=== PATIENT | male | born 1940 | race Caucasian/White ===

== ENCOUNTER → 2016-11-14 | Outpatient (CLI) | payer BC ==
[~2016-11-14] MED LIST: ACET-749 PO; AMOX875T PO; APIX1TAB3 PO; B-COCAP5 PO; CHOL100027 PO; CIPR-255 PO; CLOP1TAB15 PO; CLR10 PO; DOCU-94 PO; DOCU100C PO; DONE5TAB9 PO; FERR324T PO; FEXO3TAB PO; IPRA1AER2 INH; IPRASOL4 INH; ISOS60TA25 PO; METO50TA16 PO; METR-163 PO; MULT-506 PO; NITR0.4S UT; ONDA4TAB10 SL; OXYC-57 PO; PANT40TA PO; PLMINS PO; PRED10TA PO; SENN1TAB77 PO; SNG10 PO; SYMIN160 PO; TRAM-10 PO; ZNT/150 PO
[2016-11-14 13:02] LABS: BASO % 0.3 %; BASO ABS # 0.02 K/uL (0-0.2); COMPLETE YES; EOS % 3.5 %; HEMATOCRIT 40.7 % (42-52); IG% 0.3 %; LYMPH ABS # 1.91 K/uL (1.2-3.4); MEAN CELL VOLUME 87.2 fL (80-100); MEAN CORPUSCULAR HGB CONC 34.4 g/dl (32-36); MEAN PLATELET VOLUME 9.6 fL (7.4-10.4); MONO % 9.2 %; NEUT % 53.7 %; PLATELET COUNT 102 K/uL (130-400); RED BLOOD COUNT 4.67 M/uL (4.7-6.1); WHITE BLOOD COUNT 5.78 K/uL (4.8-10.8)
[2016-11-14 13:14] LABS: BLOOD UREA NITROGEN 12 mg/dl (7-18); GLUCOSE 89 mg/dl (70-99)
[2016-11-14 13:15] LABS: ALT/SGPT 26 U/L (12-78); AST/SGOT 19 U/L (15-37); BUN/CREATININE RATIO 13.9 (10-20); CARBON DIOXIDE 27 mmol/L (21-32); CHLORIDE 109 mmol/L (98-107); CREATININE 0.86 mg/dl (0.60-1.40); POTASSIUM 4.3 mmol/L (3.5-5.1); SODIUM 143 mmol/L (136-145)
[2016-11-14 13:17] LABS: ALB/GLOB RATIO 1.3 (0.9-2); ALKALINE PHOSPHATASE 84 U/L (45-117)
== END | disposition home or self-care (01) ==
LOC: C.LAB1850 11:47
PROVIDERS: ATTEND Nurse Practitioner
DX: D72.819 Decreased white blood cell count, unspecified (principal)

== ENCOUNTER 2016-12-13 00:07 | Emergency (ER) | payer BC ==
[~2016-12-13] VITALS: Ht 154.9 cm; Wt 83.9 kg
[~2016-12-13 00:07] MED LIST changes: -AMOX875T PO; -APIX1TAB3 PO; -CHOL100027 PO; -CIPR-255 PO; -CLR10 PO; -DOCU-94 PO; -DONE5TAB9 PO; -FERR324T PO; -FEXO3TAB PO; -IPRA1AER2 INH; -IPRASOL4 INH; -ISOS60TA25 PO; -METO50TA16 PO; -METR-163 PO; -MULT-506 PO; -NITR0.4S UT; -ONDA4TAB10 SL; -OXYC-57 PO; -PANT40TA PO; -PLMINS PO; -PRED10TA PO; -SENN1TAB77 PO; -SNG10 PO; -SYMIN160 PO; -TRAM-10 PO; -ZNT/150 PO
[2016-12-13 00:16] VITALS: TEMP 36.5; Ht 154.9 cm; Wt 83.9 kg
[2016-12-13] MEDS ORDERED: SODIUM CHLORIDE 0.9% 500ML 500 ML IV STA (00:26)
[2016-12-13] MEDS ORDERED: MoRPHine SULFATE 4 MG/ML 1 ML CARP\\VIAL IV STA (00:26)
[2016-12-13] MEDS ORDERED: ONDANSETRON INJ 2 MG/ML 2 ML VIAL IV STA (00:26)
--- NOTE | 2016-12-13 00:27 | EMERGENCY ROOM VISIT NOTE ---
History Report prepared by Willyibe: Renetta Michel Under the Supervision of: Dr. Felipe Pardo M.D. First contact with patient: 00:20 Chief Complaint: ABDOMINAL PAIN Stated Complaint: STOMACH ACHE History of Present Illness The patient is a 76 year old male who presents to the Emergency Room with complaints of persistent lower abdominal pain for the past day. He is accompanied by his . He rates his pain as a 5/10 and reports it worsened this evening, so he decided to come to the ED. The pain does not radiate anywhere. He describes his discomfort as feeling like an "ache" and states it is similar to diverticulitis flares he has experienced in the past. He denies any chest pain, shortness of breath, nausea or vomiting. Source of History: patient Onset: 1 day [employer] Position: abdomen Symptom Intensity: 5/10 Timing: other (persistent) Associated Symptoms: No SOB, No chest pain, No nausea, No vomiting Review of Systems See HPI for pertinent positives & negatives. A total of 10 systems reviewed and were otherwise negative. Past Medical & Surgical Medical Problems: (1) Angina (2) Benign hypertension (3) Bilateral hip replacement (4) Bronchitis (5) CAD (coronary artery disease) (6) Chest pain (7) COPD (chronic obstructive pulmonary disease) (8) Diverticulitis (9) Diverticulosis (10) GERD (gastroesophageal reflux disease) (11) Headache (12) Heart disease (13) Hyperlipidemia (14) Hypertension (15) Neutropenic fever (16) Pneumonia (17) Splenomegaly (18) Stomach problems (19) Unstable angina Surgical Problems: (1) H/O prostatectomy Family History FH: diabetes mellitus FH: gallbladder disease FH: heart disease Hypertension Kidney disease Kidney stones Social History Smoking Status: Never Smoker Alcohol Use: none Drug Use: none Marital Status: Housing Status: lives with family Occupation Status: retired Current/Historical Medications Scheduled Amoxicillin & Pot Clavulanate (Augmentin 875-125 mg), 1 TAB PO BID Amoxicillin & Pot Clavulanate (Augmentin 875-125 mg), 1 TAB PO BID B-Complex W/Biotin & Folic Aci (Super B-50 B-Complex), 1 TAB PO DAILY Budesonide/Formoterol Fumarate (Symbicort 160/4.5 Inhaler), 1 PUFF PO BID Cholecalciferol (Vitamin D 1000 Unit), 2,000 INTER.UNIT PO DAILY Clopidogrel (Plavix), 75 MG PO DAILY Docusate Sodium (Stool Softener), 100 MG PO DAILY Docusate Sodium (Colace), 1 CAP PO BID Donepezil HCl (Aricept), 10 MG PO HS Ferrous Gluconate (Iron Supplement), 324 MG PO DAILY Ipratropium-Albuterol (Combivent Respimat), 1 PUFFS INH BID Isosorbide Mononitrate Ext Rel (Imdur Ext Rel), 60 MG PO QAM Metoprolol Tartrate (Lopressor) (Lopressor), 25 MG PO BID Multivitamin (Multivitamin), 1 TAB PO DAILY Ondasetron Odt (Zofran Odt), 4 MG SL Q6H Ranitidine Hcl (Zantac), 300 MG PO BID Sennosides (Senokot), 8.6 MG PO HS Scheduled PRN Acetaminophen/Codeine (Tylenol W/Codeine #3), 1-2 TAB PO Q4H PRN for Pain Nitroglycerin (Nitrostat), 0.4 MG UT UD PRN for Chest Pain Oxycodone/Acetaminophen 5MG/325MG (Percocet 5MG/325MG), 1-2 TAB PO Q4H PRN for Pain Tramadol (Ultram), 50-100 MG PO Q4H PRN for Pain Allergies Coded Allergies: Ibuprofen (Verified Allergy, Mild, ULCERS, 12/13/16) Physical Exam Vital Signs Date Time Temp Pulse Resp B/P Pulse Ox O2 Delivery O2 Flow Rate FiO2 12/13/16 02:30 62 20 124/57 96 12/13/16 02:21 61 12/13/16 01:22 61 20 134/74 92 Room Air 12/13/16 01:14 63 12/13/16 00:16 36.5 60 18 148/81 96 Room Air Physical Exam GENERAL: Patient is a healthy-appearing well-nourished 76 year old male. HEAD: Normocephalic atraumatic EYES: Ocular movements intact pupils equal and react to light OROPHARYNX mucous membranes are moist no exudates present no erythema or edema present NECK: Supple no nuchal rigidity CHEST: Good equal expansion LUNGS: Clear and equal to auscultation CARDIAC: Normal S1 and S2 ABDOMEN: Soft, mildly tender in the LLQ, no guarding BACK: No CVA tenderness EXTREMITIES: No pain upon palpation normal muscle strength in all groups no clubbing cyanosis or edema NEURO: Patient is following commands is answering questions appropriately. Alert and oriented x3 Cranial Nerves 2-12 grossly intact Medical Decision & Procedures ER Provider Diagnostic Interpretation: This CT scan was reviewed and interpreted by the radiologist and reviewed by myself. CT ABDOMEN & PELVIS Artifact from bilateral hip prosthesis in the obscures small part of the rectosigmoid colon. Colonic diverticulosis. No evidence of acute diverticulitis. Normal appendix. No free air, free fluid. No bowel obstruction. Stable splenomegaly. Minimal pericardial effusion. Small hiatal hernia. Small renal low-density lesions. Stable aortoiliac calcifications and ectatic right common iliac artery. Marked degenerative changes of the spine, stable. Radiologist: Dr. Sharla Thomas MD Laboratory Results 12/13/16 00:30 Red Blood Count 4.63, Mean Corpuscular Volume 88.1, Mean Corpuscular Hemoglobin 30.0, Mean Corpuscular Hemoglobin Concent 34.1, Mean Platelet Volume 9.0 12/13/16 00:30 Test 12/13/16 00:30 12/13/16 00:39 12/13/16 02:05 White Blood Count 4.55 K/uL (4.8-10.8) Red Blood Count 4.63 M/uL (4.7-6.1) Hemoglobin 13.9 g/dL (14.0-18.0) Hematocrit 40.8 % (42-52) Mean Corpuscular Volume 88.1 fL (80-100) Mean Corpuscular Hemoglobin 30.0 pg (25-34) Mean Corpuscular Hemoglobin Concent 34.1 g/dl (32-36) Platelet Count 92 K/uL (130-400) Mean Platelet Volume 9.0 fL (7.4-10.4) RDW Standard Deviation 48.1 fL (36.4-46.3) RDW Coefficient of Variation 15.0 % (11.5-14.5) Neutrophils % (Manual) 47.3 % Lymphocytes % (Manual) 21.1 % Variant Lymphocytes % (manual) 15.8 % Monocytes % (Manual) 10.5 % Eosinophils % (Manual) 4.4 % Basophils % (Manual) 0.9 % (0-2) Neutrophils # (Manual) 2.15 K/uL (1.4-6.5) Total Absolute Neutrophils 2.15 K/uL (1.4-6.5) Lymphocytes # (Manual) 0.96 K/uL (1.2-3.4) Absolute Variant Lymphocytes 0.72 K/uL Total Absolute Lymphocytes 1.68 K/uL (1.2-3.4) Monocytes # (Manual) 0.48 K/uL (0.11-0.59) Eosinophils # (Manual) 0.20 K/uL (0-0.5) Basophils # (Manual) 0.04 K/uL (0-0.2) Platelet Estimate DECREASED Red Blood Cell Morphology Unremarkable Est Creatinine Clear Calc Drug Dose 58.6 ml/min Estimated GFR () 86.9 Estimated GFR (Non- 75.0 BUN/Creatinine Ratio 15.8 (10-20) Calcium Level 8.7 mg/dl (8.5-10.1) Total Bilirubin 0.5 mg/dl (0.2-1) Direct Bilirubin < 0.1 mg/dl (0-0.2) Aspartate Amino Transf (AST/SGOT) 26 U/L (15-37) Alanine Aminotransferase (ALT/SGPT) 29 U/L (12-78) Alkaline Phosphatase 88 U/L (45-117) Total Protein 6.7 gm/dl (6.4-8.2) Albumin 3.9 gm/dl (3.4-5.0) Lipase 238 U/L (73-393) Bedside Hemoglobin 13.3 g/dl (14.0-18.0) Bedside Hematocrit 39 % (42-52) Bedside Sodium 143 mEq/L (135-144) Bedside Potassium 4.0 mEq/L (3.3-5.0) Bedside Chloride 106 mEq/L (101-112) Bedside Total CO2 23 mEq/l (24-31) Anion Gap 19.0 mmol/L (16-25) Bedside Blood Urea Nitrogen 16 mg/dl (7-18) Bedside Creatinine 0.9 mg/dl (0.6-1.3) Bedside Glucose (other) 100 mg/dl (70-99) Bedside Ionized Calcium (Erwin) 1.22 mmol/l (1.12-1.32) Urine Color YELLOW Urine Appearance CLEAR (CLEAR) Urine pH 5.0 (4.5-7.5) Urine Specific [place] > 1.045 (1.000-1.030) Urine Protein NEG (NEG) Urine Glucose (UA) NEG (NEG) Urine Ketones NEG (NEG) Urine Occult Blood NEG (NEG) Urine Nitrite NEG (NEG) Urine Bilirubin NEG (NEG) Urine Urobilinogen NEG (NEG) Urine Leukocyte Esterase NEG (NEG) Labs reviewed by ED physician. Medications Administered Medications (Trade) Dose Ordered Sig/Guille Route Start Time Stop Time Status Last Admin Dose Admin Sodium Chloride (Nss 500ml) 500 ml @ 999 mls/hr Q31M STAT IV 12/13/16 00:26 12/13/16 00:56 DC 12/13/16 00:48 999 MLS/HR Morphine Sulfate (MoRPHine SULFATE INJ) 4 mg NOW STAT IV 12/13/16 00:26 12/13/16 00:29 DC 12/13/16 00:49 4 MG Ondansetron HCl (Zofran Inj) 4 mg NOW STAT IV 12/13/16 00:26 12/13/16 00:29 DC 12/13/16 00:48 4 MG Amoxicillin/ Clavulanate Potassium (Augmentin Tab) 875 mg ONE ONCE PO 12/13/16 02:15 12/13/16 02:16 DC 12/13/16 02:25 875 MG Oxycodone/ Acetaminophen (Percocet 5/ 325MG Home Pack) 1 homepack UD ONCE PO 12/13/16 02:15 12/13/16 02:17 DC 12/13/16 02:26 1 HOMEPACK Ondansetron HCl (ZOFRAN ODT 4MG Home Pack) 1 homepack UD ONCE PO 12/13/16 02:15 12/13/16 02:17 DC 12/13/16 02:26 1 HOMEPACK ED Course 0023: Past medical records reviewed. The patient was evaluated in room B3. A complete history and physical examination was performed. 0026: Zofran 4 mg IV, Morphine Sulfate 4 mg IV, NSS 500 ml @ 999 mls/hr IV. 0210: I reevaluated the patient. I redid an exam and he is pain free. I discussed his results and discharge instructions and he verbalized complete understanding and agreement. 0215: Zofran 4 mg 1 homepack PO, Percocet 5/325 mg 1 homepack PO, Augmentin 875 mg PO. Medical Decision Prior records/ancillary studies reviewed. Triage Nursing notes reviewed. The patient's history was concerning for abdominal pain. Differential diagnosis: Etiologies such as appendicitis, diverticulitis, PUD, biliary pathology, UTI, pancreatitis, obstruction, mesenteric ischemia, aortic pathology, infections, inflammatory bowel disease, renal colic, as well as others were entertained. This is a 76-year-old male who presents emergency department complaining of abdominal pain. Serial abdominal examinations were performed on the patient in the emergency department in no time did the patient exhibited a surgical abdomen. In addition the patient has a normal white blood count. He is at his baseline for his red blood count. Normal renal profile normal liver profile normal lipase. The patient was sent for CAT scan of the abdomen pelvis which did not show any evidence of acute process. While in the emergency department the patient did receive a normal saline bolus along with morphine and Zofran. Repeat examination revealed improvement patient's symptoms. The patient does have a history of diverticulitis and he states that this does feel like his diverticulitis. While no evidence of diverticulitis was seen on CAT scan somethings were obscured by the bilateral hip prosthesis. For this reason I will start the patient on Augmentin and recommended he take probiotic yogurt along with the Augmentin. He and his are strongly cautioned to return to the emergency department if his pain is out of control or he starts running fevers. The patient was also given nausea as as well as pain medication and stool softeners for home. I encouraged a clear liquid diet for the next 48 hours. Both patient and are in agreement with the treatment plan. Impression Primary Impression: Generalized abdominal pain Scribe Attestation The scribe's documentation has been prepared under my direction and personally reviewed by me in its entirety. I confirm that the note above accurately reflects all work, treatment, procedures, and medical decision making performed by me. Departure Information Dispostion Home / Self-Care Prescriptions Amoxicillin & Pot Clavulanate (Augmentin 875-125 mg) 1 Tab Tab 1 TAB PO BID for 10 Days, #20 TAB Prov: Felipe Pardo MD 12/13/16 Ondasetron Odt (ZOFRAN ODT) 4 Mg Tab 4 MG SL Q6H for Nausea, #6 TAB Prov: Felipe Pardo MD 12/13/16 Docusate Sodium (COLACE) 100 Mg Cap 1 CAP PO BID for 10 Days, #20 CAP Prov: Felipe Pardo MD 12/13/16 Sennosides (SENOKOT) 8.6 Mg Tab 8.6 MG PO HS for 10 Days, #10 TAB Prov: Felipe Pardo MD 12/13/16 Oxycodone/Acetaminophen 5MG/325MG (PERCOCET 5MG/325MG) Tab 1-2 TAB PO Q4H Y for Pain, #14 TAB Prov: Felipe Pardo MD 12/13/16 Amoxicillin & Pot Clavulanate (Augmentin 875-125 mg) 1 Tab Tab 1 TAB PO BID for 10 Days, #20 TAB Prov: Felipe Pardo MD 12/13/16 Referrals Yelena Canales DO (PCP) Patient Instructions Diverticulosis Diverticulitis, ED Abd Pain Unkn Cause Male, My [facility] [address] Additional Instructions Clear liquid diet next 48 hours Take probiotic yogurt while on AUgmentin Return if you develop fevers, severe abd pain or vomiting You received narcotic or benzodiazepene medication while in the emergency room today. Do not drive, operate heavy machinery, or drink alcohol under the influence of this medication. Take Percocet for breakthrough pain Radiographs and CTs will be reread by a radiologist in the morning. Culture results are usually available in approx 48 hours You have been examined and treated today on an emergency basis only. This is not a substitute for, or an effort to provide, complete comprehensive medical care. It is impossible to recognize and treat all injuries or illnesses in a single emergency department visit. It is therefore important that you follow up closely with Dr Canales. Call as soon as possible for an appointment. Thank you for your time and consideration. I look forward to speaking with you again soon. Please don't hesitate to call us if you have any questions.
[2016-12-13] MEDS ORDERED: OPTIRAY 320 IV PRN (00:45)
[2016-12-13 00:49] LABS: HEMATOCRIT 40.8 % (42-52); MEAN CELL VOLUME 88.1 fL (80-100); MEAN CORPUSCULAR HGB CONC 34.1 g/dl (32-36); RED BLOOD COUNT 4.63 M/uL (4.7-6.1); WHITE BLOOD COUNT 4.55 K/uL (4.8-10.8)
[2016-12-13 00:55] LABS: ISTAT CREATININE 0.9 mg/dl (0.6-1.3); ISTAT HEMOGLOBIN 13.3 g/dl (14.0-18.0); ISTAT IONIZED CALCIUM 1.22 mmol/l (1.12-1.32)
[2016-12-13 01:07] LABS: ALT/SGPT 29 U/L (12-78); AST/SGOT 26 U/L (15-37); BLOOD UREA NITROGEN 15 mg/dl (7-18); BUN/CREATININE RATIO 15.8 (10-20); CALCIUM 8.7 mg/dl (8.5-10.1); CARBON DIOXIDE 29 mmol/L (21-32); CHLORIDE 110 mmol/L (98-107); CREATININE 0.97 mg/dl (0.60-1.40); GLUCOSE 98 mg/dl (70-99); SODIUM 146 mmol/L (136-145)
[2016-12-13 01:09] LABS: PLATELET COUNT 92 K/uL (130-400)
[2016-12-13 01:10] LABS: ALKALINE PHOSPHATASE 88 U/L (45-117)
[2016-12-13 01:14] LABS: BASO ABS # 0.04 K/uL (0-0.2); BASOPHIL % 0.9 % (0-2); COMPLETE YES; EOSINOPHIL % 4.4 %; LYMPH ABS # 0.96 K/uL (1.2-3.4); LYMPHOCYTE % 21.1 %; NEUTROPHILS % 47.3 %; PLT ESTIMATE DECREASED; VARIANT LYM ABS # 0.72 K/uL; VARIANT LYMPHOCYTE % 15.8 %
[2016-12-13] MEDS ORDERED: AMOX875T PO ×2 (02:14→02:19)
[2016-12-13] MEDS ORDERED: AMOXICILLIN/CLAVULANATE TAB 875 MG TAB PO ONE (02:15)
[2016-12-13] MEDS ORDERED: ONDANSETRON HOME PACK 4MG OD TAB PO ONE (02:15)
[2016-12-13] MEDS ORDERED: PERCOCET HOME PACK PO ONE (02:15)
[2016-12-13] MEDS ORDERED: SENN1TAB77 PO (02:19)
[2016-12-13] MEDS ORDERED: OXYC-57 PO (02:19)
[2016-12-13] MEDS ORDERED: DOCU-94 PO (02:19)
[2016-12-13] MEDS ORDERED: ONDA4TAB10 SL (02:19)
[2016-12-13 02:30] VITALS: BP 124/57; PULSE 62; O2SAT 96
[2016-12-13 02:40] LABS: URINE APPEARANCE CLEAR (CLEAR); URINE BILIRUBIN NEG (NEG); URINE COLOR YELLOW; URINE NITRITE NEG (NEG); URINE SPECIFIC GRAVITY > 1.045 (1.000-1.030); UROBILINOGEN NEG (NEG)
[2016-12-13 02:44] LABS: MANUAL MICROSCOPIC REQUIRED? NO; REVIEW REQ? NO
--- NOTE | 2016-12-13 07:17 | DIAGNOSTIC IMAGING REPORT ---
CT ABD/PELVIS IV CONTRAST ONLY CLINICAL HISTORY: Left lower quadrant abdominal pain COMPARISON STUDY: 06/15/2015 TECHNIQUE: Following the IV administration of 92 mL of Optiray-320, CT scan of the abdomen and pelvis was performed from the lung bases to the proximal femurs. Images are reviewed in the axial, sagittal, and coronal planes. IV contrast was administered without complication. CT DOSE: 843.12 mGycm FINDINGS: Lower chest: There is mild bibasilar atelectasis. There is a small pericardial effusion. Liver: There is hepatic steatosis. Gallbladder: Unremarkable. Spleen: The spleen is enlarged measuring 16 cm. This remain similar to the preceding study. There is nonspecific 7 mm hypodensity within the spleen. This remain similar to the prior study. Pancreas: Unremarkable. Adrenal glands: There is mild adrenal gland thickening without evidence of a focal mass Kidneys: There is a stable 1 cm left renal cyst. There is no hydronephrosis. Bowel: There are no transition zones indicate bowel obstruction. There is extensive colonic diverticulosis. There are no peridiverticular inflammatory changes. There is somewhat limited evaluation the pelvis due to streak artifact from bilateral hip arthroplasties. There are no findings to indicate acute appendicitis. Peritoneum: There is no intraperitoneal free air or abdominal ascites. There are bilateral fat-containing inguinal hernias. Vasculature: The abdominal aorta is normal in course and caliber. Adenopathy: None. Pelvic viscera: The bladder, and pelvic viscera are unremarkable. Skeletal structures: 1. Extensive diverticulosis. No evidence of acute diverticulitis 2. No evidence of acute appendicitis 3. No evidence of bowel obstruction. No evidence of free air 4. Stable splenomegaly IMPRESSION: Normal Study Electronically signed by: Bridger Veras M.D. 12/13/2016 7:16 AM Dictated Date/Time: 12/13/2016 7:06 AM
[2017-05-14] MEDS ORDERED: NITR0.4S UT (00:46)
[2017-05-14] MEDS ORDERED: ZNT/150 PO (06:55)
[2017-05-14] MEDS ORDERED: CHOL100027 PO (06:55)
[2017-05-14] MEDS ORDERED: DONE5TAB9 PO (12:42)
[2017-05-14] MEDS ORDERED: TRAM-10 PO (13:17)
[2017-05-14] MEDS ORDERED: FERR324T PO (13:17)
[2017-05-14] MEDS ORDERED: ISOS60TA25 PO (13:17)
[2017-05-15] MEDS ORDERED: APIX1TAB3 PO (10:06)
== END 2016-12-13 02:32 | disposition home or self-care (01) ==
LOC: C.EDB 00:08
DX: R10.9 Unspecified abdominal pain (principal); I10 Essential (primary) hypertension; I25.10 Atherosclerotic heart disease of native coronary artery without angina pectoris; J44.9 Chronic obstructive pulmonary disease, unspecified; K21.9 Gastro-esophageal reflux disease without esophagitis; E78.5 Hyperlipidemia, unspecified; Z96.643 Presence of artificial hip joint, bilateral

== ENCOUNTER → 2017-01-12 | Outpatient (CLI) | payer BC ==
[~2017-01-12] MED LIST changes: +AMOX875T PO; +APIX1TAB3 PO; +BENZ100C7 PO; +CHOL100027 PO; +CIPR-255 PO; +CLR10 PO; +DONE5TAB9 PO; +FERR324T PO; +FEXO3TAB PO; +GFNSR600 PO; +GUAISYP4 PO; +IPRA1AER2 INH; +IPRASOL4 INH; +ISOS60TA25 PO; +LSX20 PO; +METO50TA16 PO; +METR-163 PO; +MULT-506 PO; +NITR0.4S UT; +ONDA4TAB10 SL; +OXYC-57 PO; +PANT40TA PO; +PLMINS PO; +PRD20 PO; +PRED10TA PO; +PRED20TA PO; +SNG10 PO; +SPRIN INH; +SYMIN160 PO; +TRAM-10 PO; +ZNT/150 PO
[2017-01-12 10:52] LABS: HEMATOCRIT 45.4 % (42-52); MEAN CELL VOLUME 88.3 fL (80-100); MEAN CORPUSCULAR HEMOGLOBIN 29.6 pg (25-34); MEAN CORPUSCULAR HGB CONC 33.5 g/dl (32-36); MEAN PLATELET VOLUME 9.4 fL (7.4-10.4); PLATELET COUNT 78 K/uL (130-400); RED BLOOD COUNT 5.14 M/uL (4.7-6.1); WHITE BLOOD COUNT 2.74 K/uL (4.8-10.8)
[2017-01-12 11:04] LABS: ALT/SGPT 34 U/L (12-78); BLOOD UREA NITROGEN 13 mg/dl (7-18); BUN/CREATININE RATIO 15.1 (10-20); CALCIUM 9.2 mg/dl (8.5-10.1); CARBON DIOXIDE 29 mmol/L (21-32); CHLORIDE 106 mmol/L (98-107); CHOLESTEROL 191 mg/dl (0-200); CREATININE 0.88 mg/dl (0.60-1.40); GLUCOSE 116 mg/dl (70-99); POTASSIUM 4.2 mmol/L (3.5-5.1); SODIUM 142 mmol/L (136-145)
[2017-01-12 11:09] LABS: ALB/GLOB RATIO 1.2 (0.9-2); ALKALINE PHOSPHATASE 71 U/L (45-117); AST/SGOT 19 U/L (15-37); HDL CHOLESTEROL 38 mg/dl; LDL CHOLESTEROL CALCULATED 116 mg/dl; PROSTATE SPECIFIC ANTIGEN 0.124 ng/ml (0.000-4.000); TRIGLYCERIDES 186 mg/dl (0-150); VERY LOW DENSITY LIPOPROT CALC 37 mg/dl
[2017-01-12 11:25] LABS: BASO % 0.7 %; BASO ABS # 0.02 K/uL (0-0.2); COMPLETE YES; EOS % 5.8 %; IG% 0.7 %; LYMPH % 47.1 %; LYMPH ABS # 1.29 K/uL (1.2-3.4); MONO % 26.6 %; NEUT % 19.1 %
== END | disposition home or self-care (01) ==
LOC: C.LAB1850 09:24
PROVIDERS: ATTEND Family Medicine
DX: D72.819 Decreased white blood cell count, unspecified (principal); D70.9 Neutropenia, unspecified; E78.5 Hyperlipidemia, unspecified; I10 Essential (primary) hypertension; Z85.46 Personal history of malignant neoplasm of prostate; Z86.39 Personal history of other endocrine, nutritional and metabolic disease

== ENCOUNTER → 2017-01-19 | Outpatient (CLI) | payer BC ==
--- NOTE | 2017-01-19 14:10 | DIAGNOSTIC IMAGING REPORT ---
CHEST 2 VIEWS ROUTINE HISTORY: Chronic cough. COMPARISON: Chest 10/23/2016. FINDINGS: A few small linear densities at the lung bases suggesting scarring or subsegmental atelectasis. No focal lung consolidations to suggest pneumonia. No evidence for pulmonary edema. The heart is normal in size. No pleural effusions. No pneumothorax. Mildly tortuous thoracic aorta, unchanged. There are low lung volumes. IMPRESSION: No significant change compared to the prior study. No acute process. Electronically signed by: Casa Vieira M.D. 01/19/2017 2:08 PM Dictated Date/Time: 01/19/2017 2:07 PM
[2017-01-19 15:08] LABS: BASO % 0.3 %; BASO ABS # 0.02 K/uL (0-0.2); COMPLETE YES; EOS % 3.5 %; HEMATOCRIT 39.9 % (42-52); IG% 0.5 %; LYMPH % 36.7 %; MEAN CELL VOLUME 87.1 fL (80-100); MEAN CORPUSCULAR HEMOGLOBIN 29.5 pg (25-34); MEAN CORPUSCULAR HGB CONC 33.8 g/dl (32-36); MEAN PLATELET VOLUME 9.3 fL (7.4-10.4); MONO % 11.2 %; NEUT % 47.8 %; PLATELET COUNT 110 K/uL (130-400); RED BLOOD COUNT 4.58 M/uL (4.7-6.1); WHITE BLOOD COUNT 6.26 K/uL (4.8-10.8)
== END | disposition home or self-care (01) ==
LOC: C.RAD1850 13:54
PROVIDERS: ATTEND Nurse Practitioner Adult Health
DX: R05 Cough (principal); J45.909 Unspecified asthma, uncomplicated

== ENCOUNTER 2017-02-03 21:21 | Emergency (ER) | payer BC ==
[~2017-02-03] VITALS: Ht 154.9 cm; Wt 85.9 kg
[~2017-02-03 21:21] MED LIST changes: -AMOX875T PO; -APIX1TAB3 PO; -BENZ100C7 PO; -CHOL100027 PO; -CIPR-255 PO; -CLR10 PO; -DONE5TAB9 PO; -FERR324T PO; -FEXO3TAB PO; -GFNSR600 PO; -GUAISYP4 PO; -IPRA1AER2 INH; -IPRASOL4 INH; -ISOS60TA25 PO; -LSX20 PO; -METO50TA16 PO; -METR-163 PO; -MULT-506 PO; -NITR0.4S UT; -PANT40TA PO; -PLMINS PO; -PRD20 PO; -PRED10TA PO; -PRED20TA PO; -SNG10 PO; -SPRIN INH; -SYMIN160 PO; -TRAM-10 PO; -ZNT/150 PO
[2017-02-03 21:28] VITALS: TEMP 36.6; Ht 154.9 cm; Wt 85.9 kg
[2017-02-03] MEDS ORDERED: AMPICILLIN/SULBACTAM SOD INJ 3,000 MG in SODIUM CHLORIDE 0.9% 100ML 100 ML IV ONE (21:45)
[2017-02-03 22:13] LABS: BUN/CREATININE RATIO 14.7 (10-20); POTASSIUM 3.9 mmol/L (3.5-5.1)
[2017-02-03 22:18] LABS: CALCIUM 9.2 mg/dl (8.5-10.1)
[2017-02-03 22:28] LABS: BASO % 0.3 %; BASO ABS # 0.02 K/uL (0-0.2); COMPLETE YES; EOS % 1.4 %; HEMATOCRIT 39.5 % (42-52); IG% 0.6 %; LYMPH % 33.1 %; LYMPH ABS # 2.38 K/uL (1.2-3.4); MEAN CORPUSCULAR HEMOGLOBIN 29.8 pg (25-34); MEAN CORPUSCULAR HGB CONC 33.9 g/dl (32-36); MEAN PLATELET VOLUME 11.2 fL (7.4-10.4); MONO % 9.7 %; NEUT % 54.9 %; PLATELET COUNT 21 K/uL (130-400); PLT ESTIMATE SIGNIFIC DECREASED; RED BLOOD COUNT 4.49 M/uL (4.7-6.1)
[2017-02-03] MEDS ORDERED: AMOX875T PO (23:59)
[2017-02-04] MEDS ORDERED: AMOXICIL/CLAVU 875MG HOME PACK PO ONE
--- NOTE | 2017-02-04 00:04 | EMERGENCY ROOM VISIT NOTE ---
History Report prepared by Simi: Patricia Garcia Under the Supervision of: Dr. Brian Hitchcock M.D. First contact with patient: 21:33 Chief Complaint: HAND PAIN/INJURY Stated Complaint: RT HAND INJURY History of Present Illness The patient is a 76 year old male who presents to the Emergency Room with complaints of worsening swelling to his right hand for the past few hours. The patient has a rooster and earlier today it scratched his right hand. He states that soon after this incident his hand started to swell. Over the past few hours the swelling has gotten worse. The patient rates his pain as a 1/10 in severity. He has a history of neutropenia. The patient does note having a headache. 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 Pt denies LOC, fevers, chills, diaphoresis, visual changes, neck pain, chest pain, breathing difficulties, nausea, vomiting, abdominal pain, back pain, melena, hematochezia, urinary symptoms, numbness, weakness, lymphadenopathy, rash, or other complaints. He is on Plavix. 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 A total of ten systems were reviewed and were otherwise negative. Past Medical & Surgical Medical Problems: (1) Angina (2) Benign hypertension (3) Bilateral hip replacement (4) Bronchitis (5) CAD (coronary artery disease) (6) Chest pain (7) COPD (chronic obstructive pulmonary disease) (8) Diverticulitis (9) Diverticulosis (10) GERD (gastroesophageal reflux disease) (11) Headache (12) Heart disease (13) Hyperlipidemia (14) Hypertension (15) Neutropenic fever (16) Pneumonia (17) Splenomegaly (18) Stomach problems (19) Unstable angina Surgical Problems: (1) H/O prostatectomy Family History FH: diabetes mellitus FH: gallbladder disease FH: heart disease Hypertension Kidney disease Kidney stones Social History Smoking Status: Never Smoker Alcohol Use: none Drug Use: none Marital Status: Housing Status: lives with family Occupation Status: retired Current/Historical Medications Scheduled Amoxicillin & Pot Clavulanate (Augmentin 875-125 mg), 875 MG PO BID B-Complex W/Biotin & Folic Aci (Super B-50 B-Complex), 1 TAB PO DAILY Budesonide (Inhalation) (Pulmicort Respules 0.5MG/2ML), 0.5 MG PO DIRECTED Budesonide/Formoterol Fumarate (Symbicort 160/4.5 Inhaler), 1 PUFF PO BID Cholecalciferol (Vitamin D 1000 Unit), 2,000 INTER.UNIT PO DAILY Clopidogrel (Plavix), 75 MG PO DAILY Donepezil HCl (Aricept), 10 MG PO HS Ferrous Gluconate (Iron Supplement), 324 MG PO DAILY Fexofenadine HCl (Mucinex Allergy), 180 MG PO BID Ipratropium-Albuterol (Combivent Respimat), 1 PUFFS INH BID Isosorbide Mononitrate Ext Rel (Imdur Ext Rel), 60 MG PO QAM Loratadine (Claritin), 10 MG PO DAILY Metoprolol Tartrate (Lopressor) (Lopressor), 25 MG PO BID Montelukast Sod (Montelukast Sodium), 10 MG PO DAILY Multivitamin (Multivitamin), 1 TAB PO DAILY Prednisone (Prednisone), 10 MG PO DAILY Ranitidine Hcl (Zantac), 300 MG PO BID Scheduled PRN Acetaminophen/Codeine (Tylenol W/Codeine #3), 1-2 TAB PO Q4H PRN for Pain Nitroglycerin (Nitrostat), 0.4 MG UT UD PRN for Chest Pain Tramadol (Ultram), 50-100 MG PO Q4H PRN for Pain Allergies Coded Allergies: Ibuprofen (Verified Allergy, Mild, ULCERS, 12/13/16) Physical Exam Vital Signs Date Time Temp Pulse Resp B/P Pulse Ox O2 Delivery O2 Flow Rate FiO2 02/03/17 22:23 88 16 146/81 97 Room Air 02/03/17 21:28 36.6 103 20 153/90 96 Room Air Physical Exam GENERAL: Awake, alert, well-appearing, in no distress HENT: Normocephalic, atraumatic. Oropharynx unremarkable. EYES: Normal conjunctiva. Sclera non-icteric. NECK: Supple. No nuchal rigidity. FROM. No JVD. RESPIRATORY: Clear to auscultation. CARDIAC: Regular rate, normal rhythm. Extremities warm and well perfused. Pulses equal. ABDOMEN: Soft, non-distended. No tenderness to palpation. No rebound or guarding. No masses. UPPER EXTREMITIES: Scabbed over wound on the back of the right hand with associated edema, bloody drainage present. NEURO: Normal sensorium. No sensory or motor deficits noted. SKIN: No rash or jaundice noted. Medical Decision & Procedures ER Provider Diagnostic Interpretation: Head CT: A noncontrast CT scan of the head was performed and was negative for tumor, fracture, intracranial hemorrhage, or other acute pathology. Laboratory Results 02/03/17 21:45 Red Blood Count 4.49, Mean Corpuscular Volume 88.0, Mean Corpuscular Hemoglobin 29.8, Mean Corpuscular Hemoglobin Concent 33.9, Mean Platelet Volume 11.2, Neutrophils (%) (Auto) 54.9, Lymphocytes (%) (Auto) 33.1, Monocytes (%) (Auto) 9.7, Eosinophils (%) (Auto) 1.4, Basophils (%) (Auto) 0.3, Neutrophils # (Auto) 3.96, Lymphocytes # (Auto) 2.38, Monocytes # (Auto) 0.70, Eosinophils # (Auto) 0.10, Basophils # (Auto) 0.02 02/03/17 21:45 Test 02/03/17 21:45 White Blood Count 7.20 K/uL (4.8-10.8) Red Blood Count 4.49 M/uL (4.7-6.1) Hemoglobin 13.4 g/dL (14.0-18.0) Hematocrit 39.5 % (42-52) Mean Corpuscular Volume 88.0 fL (80-100) Mean Corpuscular Hemoglobin 29.8 pg (25-34) Mean Corpuscular Hemoglobin Concent 33.9 g/dl (32-36) Platelet Count 21 K/uL (130-400) Mean Platelet Volume 11.2 fL (7.4-10.4) Neutrophils (%) (Auto) 54.9 % Lymphocytes (%) (Auto) 33.1 % Monocytes (%) (Auto) 9.7 % Eosinophils (%) (Auto) 1.4 % Basophils (%) (Auto) 0.3 % Neutrophils # (Auto) 3.96 K/uL (1.4-6.5) Lymphocytes # (Auto) 2.38 K/uL (1.2-3.4) Monocytes # (Auto) 0.70 K/uL (0.11-0.59) Eosinophils # (Auto) 0.10 K/uL (0-0.5) Basophils # (Auto) 0.02 K/uL (0-0.2) RDW Standard Deviation 48.4 fL (36.4-46.3) RDW Coefficient of Variation 15.1 % (11.5-14.5) Immature Granulocyte % (Auto) 0.6 % Immature Granulocyte # (Auto) 0.04 K/uL (0.00-0.02) Platelet Estimate SIGNIFIC DECREASED Anion Gap 7.0 mmol/L (3-11) Est Creatinine Clear Calc Drug Dose 57.5 ml/min Estimated GFR () 83.8 Estimated GFR (Non- 72.3 BUN/Creatinine Ratio 14.7 (10-20) Calcium Level 9.2 mg/dl (8.5-10.1) Laboratory results reviewed by me Medications Administered Medications (Trade) Dose Ordered Sig/Guille Route Start Time Stop Time Status Last Admin Dose Admin Ampicillin Sodium/ Sulbactam Sodium/ Sodium Chloride (Unasyn Inj/Nss 100ml) 108 ml @ 200 mls/hr ONE ONCE IV 02/03/17 21:45 02/03/17 22:17 DC 02/03/17 21:49 200 MLS/HR ED Course 2132: The patient was evaluated in room B2. A complete history and physical exam was performed. 2144: Ampicillin Sodium/Sulbactam Sodium 3000 mg/Sodium Chloride 108 ml @ 200 mls/hr IV 2230: I updated the patient on his blood work results. 2235: At this time I spoke with Dr. Leary of hematology/oncology. We discussed the patient's results and he recommended follow-up in the office on Sunday. 2245: I reassessed the patient at this time and updated his on the treatment plan. He verbalized agreement. Medical Decision Prior records reviewed and summarized as above. Triage Nursing notes reviewed and agree them. Additional history obtained from the family. The patient's history was concerning for swelling and redness of the skin. Differential diagnosis: Etiologies such as cellulitis, abscess, neutropenia, as well as others were entertained.. Physical examination: The physical examination was consistent with developing cellulitis. No bleeding noted. ER treatment provided: IV Unasyn The patient declined analgesia Hero wrap On reassessment the patient felt better. Diagnostics interpreted by me: The labs revealed an unremarkable white blood cell count. The patient is not neutropenic. The patient was found to be significantly thrombocytopenic. Imaging studies: CT scan as above. Negative. Consultation: A consultation was placed with the Dock Manager on-call, Dr. Leary. The case was discussed and diagnostics were reviewed. Reviewed the patient's diagnostic testing with regards to his CBC as well as his history. He recommended bleeding precautions and close follow-up in the office on Sunday. By the evaluation outlined above emergent etiologies such as abscess, necrotizing fasciitis, hemorrhage, neutropenia as well as others were deemed relatively unlikely. The patient and were informed about the findings as listed above. All questions were answered and they were pleased with the treatment. Return instructions were outlined and the patient was discharged in stable condition. Outpatient prescription management: Augmentin Referral: The patient was referred back to hematology Sunday for a recheck of the current condition. The chart was completed utilizing [employer] Speech voice recognition software. Grammatical errors, random word insertions, pronoun errors, and incomplete sentences are an occasional consequence of this system due to software limitations, ambient noise, and hardware issues. Any formal questions or concerns about the content, text, or information contained within the body of this dictation should be directly addressed to the physician for clarification. Consults Time Called: 2233 Consulting Physician: Dr. Leary Returned Call: 2235 At this time I spoke with Dr. Leary of hematology/oncology. We discussed the patient's results and he recommended follow-up in the office on Sunday. Impression Primary Impression: Cellulitis of hand, right Additional Impression: Thrombocytopenia Scribe Attestation The scribe's documentation has been prepared under my direction and personally reviewed by me in its entirety. I confirm that the note above accurately reflects all work, treatment, procedures, and medical decision making performed by me. Departure Information Dispostion Home / Self-Care Prescriptions Amoxicillin & Pot Clavulanate (Augmentin 875-125 mg) 1 Tab Tab 875 MG PO BID for 9 Days, #18 TAB Prov: Brain Hitchcock MD 02/03/17 Referrals Ricotta, Yelena M., DO (PCP) Patient Instructions My [facility] Additional Instructions Your platelet count was very low at 21. This will need close follow-up. You' re not neutropenic today. White blood cell count was normal. CELLULITIS INSTRUCTIONS: Amoxicillin Clavulanate (Augmentin) 875mg: Take one pill twice daily for 10 days for your infection. All antibiotics can cause diarrhea. If this occurs and you feel worse or it does not resolve in 1-2 days follow up with your doctor or return to the Emergency Department as this could be signs of serious underlying problems. Any medication can cause an allergic reaction, stop the pills immediately and return to the ER for rash, hives, breathing difficulties, or swelling. Acetaminophen(Tylenol) may be used for fever or pain. Use 1000mg every six hours as needed. Avoid using more than 4000mg in a 24 hour period. Warm compresses to the affected area 4 times daily for 15-20 minutes. Rest and drink plenty of fluids. Continue current medications except for the Plavix. Hold this until cleared by hematology. Return to the ER for bleeding, passing out, red rash developing on the lower legs, severe pain, persistent fevers, spreading redness, or any worsening of your condition. Follow up with your drafter structural on Sunday for a recheck of the current condition. Problem Qualifiers
[2017-02-04 00:15] VITALS: BP 122/62; PULSE 81; O2SAT 97
--- NOTE | 2017-02-04 07:01 | DIAGNOSTIC IMAGING REPORT ---
CT OF THE HEAD WITHOUT CONTRAST CLINICAL HISTORY: Headache, thrombocytopenia COMPARISON STUDY: Head CT July 05, 2016. CT DOSE: 614.27 mGy.cm TECHNIQUE: Helical axial images of the head were obtained without IV contrast. Automated exposure control was utilized for the study. FINDINGS: No acute intracranial hemorrhage, midline shift or mass effect is present. Ventricular system is stable. Basilar cisterns are patent. There are no extra-axial collections. There are no CT findings to suggest acute dural sinus thrombosis or acute territorial infarct. White matter hypodensity suggests small vessel disease. There are no significant calvarial abnormalities. Visualized portions of the sinuses and mastoid air cells are clear. IMPRESSION: No acute intracranial findings. Electronically signed by: Billy Wilson M.D. 02/04/2017 6:59 AM Dictated Date/Time: 02/04/2017 6:58 AM
--- NOTE | 2017-02-06 15:48 | Pharmacy Progress Note ---
ED Pharmacist Culture FollowUp Date of Service: February 06, 2017. Patient was seen in ER on 02/03/17 for R hand cellulitis following scratch by his pet rocarlos. He was discharged w/ Rx for Augmentin 875mg PO BID x 9 days (after receiving a dose of Unasyn in the ER). Wound culture from that day is growing 3 organisms only 1 of which our lab will be reporting sensitivities. * enterococcus faecium: pansensitive including ampicillin (Augmentin should cover this organism) * bacillus sp not anthracis; could be a contaminant, rare quantity noted in cx ( Augmentin will not likely cover this organism) * CoN staph, also could be a contaminant, rare quantity noted in cx (Augmentin may cover this organism, however only 54% isolates sensitive per antibiogram) I contacted the patient's for update on the wound. She states he still has significant pain, redness and swelling, however there is no drainage or pus. She also denied presence of fever or chills. I relayed this information to Dr Urbano. Will expand the abx regimen to include coverage of Bacillus by adding Cipro 500mg PO BID x 7 days, auth by Dr Urbano. requested I phone Rx to [facility] ([phone] ), which I did do. was instructed to continue the Augmentin with the new Rx for Cipro.
[2017-05-14] MEDS ORDERED: NITR0.4S UT (00:46)
[2017-05-14] MEDS ORDERED: CHOL100027 PO (06:55)
[2017-05-14] MEDS ORDERED: ZNT/150 PO (06:55)
[2017-05-14] MEDS ORDERED: DONE5TAB9 PO (12:42)
[2017-05-14] MEDS ORDERED: TRAM-10 PO (13:17)
[2017-05-14] MEDS ORDERED: ISOS60TA25 PO (13:17)
[2017-05-14] MEDS ORDERED: FERR324T PO (13:17)
[2017-05-15] MEDS ORDERED: APIX1TAB3 PO (10:06)
[2017-08-19] MEDS ORDERED: LSX20 PO (07:37)
[2017-08-19] MEDS ORDERED: SPRIN INH (07:37)
[2017-08-19] MEDS ORDERED: PRD20 PO (07:37)
[2017-08-19] MEDS ORDERED: GUAISYP4 PO (07:37)
[2017-08-19] MEDS ORDERED: BENZ100C7 PO (07:46)
[2017-08-19] MEDS ORDERED: GFNSR600 PO (07:46)
== END 2017-02-04 00:17 | disposition home or self-care (01) ==
LOC: C.EDB 21:22
DX: L03.113 Cellulitis of right upper limb (principal); D69.6 Thrombocytopenia, unspecified; W61.99XA Other contact with other birds, initial encounter; Z79.01 Long term (current) use of anticoagulants; I10 Essential (primary) hypertension; Z96.649 Presence of unspecified artificial hip joint; I25.10 Atherosclerotic heart disease of native coronary artery without angina pectoris; J44.9 Chronic obstructive pulmonary disease, unspecified; K21.9 Gastro-esophageal reflux disease without esophagitis; E78.5 Hyperlipidemia, unspecified; Z87.01 Personal history of pneumonia (recurrent); Z90.79 Acquired absence of other genital organ(s); Z83.3 Family history of diabetes mellitus; Z82.49 Family history of ischemic heart disease and other diseases of the circulatory system; Z84.1 Family history of disorders of kidney and ureter; Z79.899 Other long term (current) drug therapy

== ENCOUNTER → 2017-02-07 | Outpatient (CLI) | payer BC ==
[~2017-02-07] MED LIST changes: +AMOX875T PO; +APIX1TAB3 PO; +BENZ100C7 PO; +CHOL100027 PO; +CIPR-255 PO; +CLR10 PO; -DOCU100C PO; +DONE5TAB9 PO; +FERR324T PO; +FEXO3TAB PO; +GFNSR600 PO; +GUAISYP4 PO; +IPRA1AER2 INH; +IPRASOL4 INH; +ISOS60TA25 PO; +LSX20 PO; +METO50TA16 PO; +METR-163 PO; +MULT-506 PO; +NITR0.4S UT; -ONDA4TAB10 SL; -OXYC-57 PO; +PANT40TA PO; +PLMINS PO; +PRD20 PO; +PRED10TA PO; +PRED20TA PO; +SNG10 PO; +SPRIN INH; +SYMIN160 PO; +TRAM-10 PO; +ZNT/150 PO
== END | disposition home or self-care (01) ==
LOC: C.RC 16:19
PROVIDERS: ATTEND Internal Medicine Pulmonary Disease
DX: G47.33 Obstructive sleep apnea (adult) (pediatric) (principal); J45.909 Unspecified asthma, uncomplicated

== ENCOUNTER → 2017-04-04 | Outpatient (CLI) | payer BC ==
[~2017-04-04] MED LIST changes: -AMOX875T PO; -BENZ100C7 PO; -GFNSR600 PO; -GUAISYP4 PO; -LSX20 PO; -PRD20 PO; -PRED20TA PO; -SPRIN INH
--- NOTE | 2017-04-05 05:30 | PAP/PSG TECHNICIAN REPORT ---
[facility] Tile Grinder Polysomnogram Report Study name: None Report date: 04/05/2017 Study date: 04/04/2017 Referring Physician: Yelena Canales DO Name: ANGIE COHEN Interpreting Physician: Arthur Goodrich D.O. Date of : 1940 Tile Grinder: Kacy Sauceda [facility]. Sex: Male Age: 77 StudyType: PSG Weight: 195.7 lbs Height: 77 years, Height 5' 1" Neck Circum:17 inches. BMI: 36.97 Medications: Acetaminophen-Codeine #3 300-30mg, Budesonide 0.5mg/2ml, Claritin 10mg, Combivent Respimat 20-100mcg/act, Donepezil HCL 10mg, Ipratropium-Albuterol 5-2.5mg/3ml, Iron, Isosorbide Mononnitrate 60mg, Metoprolol 50mg, Montelukast Sodium 10mg, Nitrostat 0.4mg, Potassium, Prednisone 10mg, Ranitidine 300mg, Tramadol 50mg, Ventolin Patient History Study started on room air with no ETCO2 monitoring in room #6. 77 yr old male here tonight for a possible split psg. He was diagnosed with BISI with an AHi of 10 but was not able to tolerate cpap. He is here for a Bipap titration study if he qualifies for a split night. His ESS=17/24. Neck circ=17inches Parameters Monitored NPSG: E1-M2, E2-M1, Fp1-M2, Fp2-M1, F3-M2, F4-M2, F4-M1, C3-M2, C4-M2, C4-M1, O1-M2, O2-M2, O2-M1, T3-M2, T4-M1, P3-M2, P4-M1, CHIN1, CHIN2, HR, EKG, Legs, PFLOW, SNOR, FLOW, CFLOW, Tidal Volume, THOR, ABDO, SpO2, PLTH, CPRESS, ETCO2 Wave, ETCO2, pH Sleep Architecture Sleep Stages Time at Lights Off 10:58:15 PM STAGES Time (min.) TST (%) Time at Lights On 5:23:45 AM Wake 139.0 -- Total Recording Time (TRT) 385.00 min. N1 13.5 5 Total Sleep Period (TSP) 366.5 min. N2 108.5 44 Total Sleep Time (TST) 246.0min. N3 35.5 14 Awake Time 139.0 min. REM 88.5 36 Wake after Sleep Onset 120.5 min. Sleep Efficiency (SE) 64 % Sleep Onset Latency (OMAR) 19.0 min. Number of Stage 1 Shifts None Awakenings 12 Stage Changes 59 Number of REM periods 10 REM 88.5 36 REM Latency 37.5 min. NREM 157.5 64 Body Position Analysis Supine Right Left Side Prone Vertical Total Sleep Time (min.) 151.5 69.0 104.0 173.00 0.0 0.0 Total Sleep Time (%) 30% 28% 42% 70 0% N/A% Total Sleep Time REM (min.) 13.5 26.5 48.5 None 0.0 0.0 Total Sleep Time NREM (min.) 59.5 42.5 55.5 None 0.0 0.0 Intermittent Wake (min.) 78.5 22.5 38.0 None 0.0 0.0 Total Sleep Period (%) 40% None None None None None Arousals Myoclonus (PLM) * Events Count Index Events Count Index Spontaneous 7 2 Events Awake (PLMW) 83 35.8 Respiratory 4 1.5 Events Asleep w/ Arousal (PLMA) 1 0.2 PLM 1 0 Events Asleep w/o Arousal (PLMS) 34 8.3 Snoring 2 0 Total Asleep 35 8.5 Total 14 3 Total 118 18 Respiratory Analysis * CA OA MA CH H RERA Total Count 1 22 0 0 52 0 75 Index 0.2 5.4 0.0 0 12.7 0 18.3 Mean Duration 19.0 22.7 0.0 0.00 31.1 0.0 28.5 Longest Duration 19.0 53.7 0.0 0.00 0.0 0.0 81.3 Respiratory Event Summary Total Supine ~Supine Right Left Prone REM NREM Apneas Count 23 2 21 1 20 N/A 16 7 Index 5.6 2 7 0.9 11.5 N/A 11 3 Hypopneas (4% Desat) Count 52 10 42 20 22 N/A 40 12 Index 12.7 8.2 15 17.4 12.7 N/A 27.1 4.6 Apneas & All Hypopneas Count 75 12 63 21 42 N/A 56 19 Index 18.3 10 22 18 24 N/A 38.0 7.2 Respiratory Events (Grocery Worker+All Hyp+RERA) Count 75 12 63 21 42 N/A 56 19 Index 18.3 10 22 18.3 24.2 N/A 38.0 7.2 Respiratory Related Arousal Count 4 12 1 0 1 N/A 4 2 Index 1.5 4 0 0 1 N/A 3 1 Snoring Analysis Supine Right Left Prone REM NREM Total Snore duration 8.7 min Snores count 48 203 388 N/A 311 328 639 Snore mean duration 0.8 Sec Snores index 39 177 224 N/A 210.8 125.0 155.9 TST with snoring (%) 3.5% Desaturation Event Summary: Minimum %SpO2 Event Count Mean/Min/Max Duration(sec.) Desaturation Index % Time In Bed > 90 42 37.2 / 8.5 / 60.0 11.8 60.5 86 - 90 36 30.8 / 8.5 / 60.0 21.9 27.8 81 - 85 13 28.6 / 8.0 / 59.5 31.3 7.0 76 - 80 3 26.5 / 8.0 / 42.0 12.4 4.1 71 - 75 0 N/A 0.0 0.6 66 - 70 0 N/A 0.0 0.0 61 - 65 0 N/A 0.0 0.0 56 - 60 0 N/A 0.0 0.0 51 - 55 0 N/A 0.0 0.0 < 50 0 N/A 0.0 0.0 Total REM NREM Awake <50% 0.0 min. 0.0 min. 0.0 min. 0.0 min. 51 - 60% 0.0 min. 0.0 min. 0.0 min. 0.0 min. 61 - 70% 0.0 min. 0.0 min. 0.0 min. 0.0 min. 71 - 80% 16.6 min. 15.2 min. 0.1 min. 1.3 min. 81 - 90% 123.6 min. 50.0 min. 55.0 min. 18.6 min. 91 - 100% 214.5 min. 23.3 min. 102.1 min. 89.0 min. Average 90 86 91 92 Minimum SpO2 70 70 75 73 Desaturation Event Index 11.4 28.5 8.8 3.9 # Desat. Events below 89% 63 40 19 4 Time(%) with Saturation below 89% 26.0 14.8 8.8 2.4 Time(min.) with Saturation below 89% 92.1 52.4 31.0 8.6 Time (mins) REM (mins) NREM (mins) % of TST SpO2 Below 90% 64 41 N23 40.4 SpO2 Below 88% 34 0 0 26 Heart Rate Analysis Min (bpm) Max (bpm) Average (bpm) Awake 32 127 64 NREM 47 127 57 REM 39 86 57 Overall 39 127 57 Supplemental O2 Values Minimum O2 level: None Value Start Time End Time Tile Grinder Comments Mr. Neumann slept in the right, left and supine positions. No cardiac arrhythmia noted. Some leg movements were noted. No bruxism noted. Snoring was noted and scored as a 3 on a scale of 1 through 5. (0=no snoring, 5=snoring loud enough to be heard through a closed door or down the hallway). He awoke to use the restroom 3 times during the night. He was very confused as to where he was and what was going on. He stated that he slept better than he thought he would. He needed to be up by 5:30 am because his was picking him up at 6am. He did not qualify for a split study. The final report will be interpreted and signed by a sleep physician. The completed physician report will then be placed in the patient medical record. Therapy (cm H2O) 0 TIB (min.) 385.0 TST (min.) 246.0 Sleep Onset (min.) 19.0 REM Onset From Sleep (min.) 37.5 Sleep Efficiency % 64 Wakefulness (%) 36 Wakefulness (min.) 139.0 NREM 1 (%) 5 NREM 1 (min.) 13.5 NREM 2 (%) 44 NREM 2 (min.) 108.5 NREM 3 (%) 14 NREM 3 (min.) 35.5 REM (%) 36 REM (min.) 88.5 # Arousals 14 Arousal Index 3 # Snore 639 Snore Index 155.9 AHI 18.3 AHI Supine 10 AHI Non-Supine 22 NREM AHI 7.2 REM AHI 38.0 RDI 18.3 # Obstructive Apnea 22 # Central Apnea 1 # Mixed Apnea 0 # Hypopneas 52 RERAs 0 Total Respiratory Events 78 Time Below SpO2 89% (min.) 83.4 Mean NREM SpO2 (%) 91 Mean REM SpO2 (%) 86 Mean Sleep SpO2 (%) 89 Min NREM SpO2 (%) 75 Min REM SpO2 (%) 70 Position Supine (min.) 151.5 Position Non-supine (min.) 173.0 LM Index Sleep 8.5 LM Index NREM 5.3 LM Index REM 14.2 Mean Heart Rate (bpm) 57 Min Heart Rate (bpm) 39
--- NOTE | 2017-04-10 13:50 | Sleep Study ---
Sleep Study Report Date of Service: 04/04/2017 Sleep Study Report Clinical data: Patient is a 77-year-old male with a BMI of 36.97. He has a history of mild sleep apnea in the past but he could not tolerate nasal CPAP. He has symptoms of snoring and excessive daytime somnolence. His [place] score is 17 out of a possible 24. This was an in-lab diagnostic sleep study. Sleep architecture: The total sleep period was 366.5 minutes. The total sleep time was 246.0 minutes. The sleep efficiency was significantly reduced to 64 percent. The sleep latency was top normal at 19 minutes. Awake after sleep onset was increased to 120.5 minutes. REM latency was shortened to 37.5 minutes. Sleep consisted of stage N1 5 percent, stage N2 44 percent, stage N3 14 percent, and stage REM 36 percent. Arousal data: The patient had a total of 14 arousals including 7 spontaneous arousals, 4 respiratory arousals, 1 PLM arousal, and 2 snoring arousals. The arousal index was 3. PLM data: The patient had 35 periodic limb movements of sleep for an index of 8.5. There was 1 arousal for a PLM arousal index of 0.2. Respiratory data: The patient had a total of 75 respiratory events including 1 central apnea, 22 obstructive apneas, and 52 hypopneas. Hypopneas were scored by the 4 percent desaturation rule. The longest apnea was 53.7 seconds. The average hypopnea was 31.1 seconds. The apnea-hypopnea index is elevated to 18.3 and this reflects moderate sleep apnea. Oximetry data: The average saturation was 90 percent. The minimum saturation was 70 percent. There was a total of 92.1 minutes with saturation less than 89 percent. EKG data: The underlying cardiac rhythm was normal sinus. There were a few PACs. The lowest cardiac rate was 39. The highest cardiac rate was 86. The computer reported the highest rate as 127 but this was artifactual. The average heart rate was 57 beats per minute. Soaker Meat comments: Patient slept on the right, left, and supine positions. Some leg movements were noted. No bruxism noted. Snoring was noted and scored as 3 on a scale of 1 through 5. He was very confused as to where he was and what was going on. The patient did not qualify for a split study as the majority of his events occurred during the 2nd half of the night. Impressions: 1. Obstructive sleep apnea-moderate 2. Hypoxia secondary to 1. Comments: Patient had moderate sleep apnea. His sleep efficiency was significantly reduced. Surprisingly his REM latency was short. He also had increased REM from normal. Some of the apneas were markedly prolonged as noted with the longest being 53.7 seconds. The patient has significant symptoms and should be treated. Recommendations: 1. It is advised that the patient have an in-lab titration study. CPAP could be started. If he had difficulties with CPAP as he did in the past he could be readily switched to BiPAP 2. The alternative would be to have treatment with an auto CPAP. 3. Weight loss is advised in light of his elevation of body mass index of 36.97. 4. If possible the patient should avoid sleeping in the supine position. Copies To 1: Arthur Goodrich DO; Yelena Canales, DO
== END | disposition home or self-care (01) ==
LOC: C.NEUR 21:00
PROVIDERS: ATTEND Internal Medicine Pulmonary Disease
DX: G47.33 Obstructive sleep apnea (adult) (pediatric) (principal); R05 Cough; J45.40 Moderate persistent asthma, uncomplicated; F41.9 Anxiety disorder, unspecified; I65.29 Occlusion and stenosis of unspecified carotid artery; F03.90 Unspecified dementia, unspecified severity, without behavioral disturbance, psychotic disturbance, mood disturbance, and anxiety; I10 Essential (primary) hypertension

== ENCOUNTER 2017-04-11 14:47 | Emergency (ER) | payer BC ==
[~2017-04-11] VITALS: Ht 157.5 cm; Wt 89.4 kg
[~2017-04-11 14:47] MED LIST changes: -APIX1TAB3 PO; -CHOL100027 PO; -CIPR-255 PO; -CLR10 PO; -DONE5TAB9 PO; -FERR324T PO; -FEXO3TAB PO; -IPRA1AER2 INH; -IPRASOL4 INH; -ISOS60TA25 PO; -METO50TA16 PO; -METR-163 PO; -MULT-506 PO; -NITR0.4S UT; -PANT40TA PO; -PLMINS PO; -PRED10TA PO; -SNG10 PO; -SYMIN160 PO; -TRAM-10 PO; -ZNT/150 PO
[2017-04-11 15:11] VITALS: TEMP 37.4; Ht 157.5 cm; Wt 89.4 kg
--- NOTE | 2017-04-11 16:58 | EMERGENCY ROOM VISIT NOTE ---
History Report prepared by Simi: Claudio Garcia Under the Supervision of: Dr. Felipe Pardo M.D. First contact with patient: 16:40 Chief Complaint: FEVER Stated Complaint: COUGH, FEVER, REFERRED BY DOCTOR History of Present Illness The patient is a 77 year old male with a history of neutropenia and low platelet count who presents to the Emergency Room with complaints of a persistent fever that started yesterday. He says that he has been feeling fatigued for the past day, and has been running a fever. The patient says that his fever was 101.4 earlier today. He adds that he has been having a worsening cough. The patient is getting chemotherapy, and is receiving treatment with Dr. Sanz of hematology oncology in 2 days. The patient says that he gets intermittent chronic abdominal pain, but he denies any current abdominal pain. The patient's says that the patient gets the abdominal pain only when he eats. He has a history of diverticulitis. Source of History: patient, spouse/significant other Onset: Yesterday Position: other (global - fever) Symptom Intensity: 101.4 Timing: other (persistent) Associated Symptoms: + cough (worsening), + fatigue, No abdominal pain (no current) Note: No other associated symptoms noted. Review of Systems See HPI for pertinent positives & negatives. A total of 10 systems reviewed and were otherwise negative. Past Medical & Surgical Medical Problems: (1) Angina (2) Benign hypertension (3) Bilateral hip replacement (4) Bronchitis (5) CAD (coronary artery disease) (6) Chest pain (7) COPD (chronic obstructive pulmonary disease) (8) Diverticulitis (9) Diverticulosis (10) GERD (gastroesophageal reflux disease) (11) Headache (12) Heart disease (13) Hyperlipidemia (14) Hypertension (15) Neutropenic fever (16) Pneumonia (17) Splenomegaly (18) Stomach problems (19) Unstable angina Surgical Problems: (1) H/O prostatectomy Family History FH: diabetes mellitus FH: gallbladder disease FH: heart disease Hypertension Kidney disease Kidney stones Social History Smoking Status: Never Smoker Alcohol Use: none Drug Use: none Marital Status: Housing Status: lives with family Occupation Status: retired Current/Historical Medications Scheduled Budesonide (Inhalation) (Pulmicort Respules 0.5MG/2ML), 0.5 MG PO DIRECTED Budesonide/Formoterol Fumarate (Symbicort 160/4.5 Inhaler), 1 PUFF PO BID Cholecalciferol (Vitamin D 1000 Unit), 2,000 INTER.UNIT PO DAILY Donepezil HCl (Aricept), 10 MG PO HS Ferrous Gluconate (Iron Supplement), 324 MG PO DAILY Fexofenadine HCl (Mucinex Allergy), 180 MG PO BID Ipratropium-Albuterol (Combivent Respimat), 1 PUFFS INH BID Isosorbide Mononitrate Ext Rel (Imdur Ext Rel), 60 MG PO QAM Loratadine (Claritin), 10 MG PO DAILY Metoprolol Tartrate (Lopressor) (Lopressor), 25 MG PO BID Montelukast Sod (Montelukast Sodium), 10 MG PO DAILY Multivitamin (Multivitamin), 1 TAB PO DAILY Prednisone (Prednisone), 5 MG PO DAILY Ranitidine Hcl (Zantac), 300 MG PO BID Scheduled PRN Nitroglycerin (Nitrostat), 0.4 MG UT UD PRN for Chest Pain Tramadol (Ultram), 50-100 MG PO Q4H PRN for Pain Allergies Coded Allergies: Ibuprofen (Verified Allergy, Mild, ULCERS, 04/11/17) Physical Exam Vital Signs Date Time Temp Pulse Resp B/P (MAP) Pulse Ox O2 Delivery O2 Flow Rate FiO2 04/11/17 19:38 89 18 110/49 97 Nebulizer 04/11/17 18:31 88 18 96 Room Air 04/11/17 17:49 86 04/11/17 17:41 86 16 122/76 93 04/11/17 15:11 37.4 91 18 128/69 93 Room Air Physical Exam GENERAL: Patient is a healthy-appearing well-nourished 77 year old male. HEAD: Normocephalic atraumatic EYES: Ocular movements intact pupils equal and react to light OROPHARYNX mucous membranes are moist no exudates present no erythema or edema present NECK: Supple no nuchal rigidity CHEST: Good equal expansion LUNGS: Bilateral wheezing. CARDIAC: Normal S1 and S2 ABDOMEN: Soft nontender no guarding BACK: No CVA tenderness EXTREMITIES: No pain upon palpation normal muscle strength in all groups no clubbing cyanosis or edema NEURO: Patient is following commands and answering questions appropriately. Alert and oriented x3 Cranial Nerves 2-12 grossly intact Medical Decision & Procedures ER Provider Diagnostic Interpretation: X-ray results as stated below per interpretation by me and the radiologist: CHEST 2 VIEWS ROUTINE CLINICAL HISTORY: Fever, Cough COMPARISON STUDY: Chest radiograph January 19, 2017. FINDINGS: Lung volumes are mildly diminished. Mild left basilar opacity favors atelectasis. There is no pneumothorax or pleural effusion. There is no evidence of pulmonary edema. Cardiomediastinal silhouette is stable. IMPRESSION: Mild left basilar opacity which favors atelectasis. Electronically signed by: Billy Wilson M.D. 04/11/2017 7:58 PM Dictated Date/Time: 04/11/2017 7:57 PM Laboratory Results 04/11/17 17:23 Red Blood Count 4.62, Mean Corpuscular Volume 85.5, Mean Corpuscular Hemoglobin 29.2, Mean Corpuscular Hemoglobin Concent 34.2, Mean Platelet Volume 9.3, Neutrophils (%) (Auto) 68.0, Lymphocytes (%) (Auto) 19.1, Monocytes (%) (Auto) 11.7, Eosinophils (%) (Auto) 0.6, Basophils (%) (Auto) 0.1, Neutrophils # (Auto ) 5.31, Lymphocytes # (Auto) 1.49, Monocytes # (Auto) 0.91, Eosinophils # (Auto ) 0.05, Basophils # (Auto) 0.01 04/11/17 17:23 Test 04/11/17 17:23 04/11/17 17:30 White Blood Count 7.81 K/uL (4.8-10.8) Red Blood Count 4.62 M/uL (4.7-6.1) Hemoglobin 13.5 g/dL (14.0-18.0) Hematocrit 39.5 % (42-52) Mean Corpuscular Volume 85.5 fL (80-100) Mean Corpuscular Hemoglobin 29.2 pg (25-34) Mean Corpuscular Hemoglobin Concent 34.2 g/dl (32-36) Platelet Count 106 K/uL (130-400) Mean Platelet Volume 9.3 fL (7.4-10.4) Neutrophils (%) (Auto) 68.0 % Lymphocytes (%) (Auto) 19.1 % Monocytes (%) (Auto) 11.7 % Eosinophils (%) (Auto) 0.6 % Basophils (%) (Auto) 0.1 % Neutrophils # (Auto) 5.31 K/uL (1.4-6.5) Lymphocytes # (Auto) 1.49 K/uL (1.2-3.4) Monocytes # (Auto) 0.91 K/uL (0.11-0.59) Eosinophils # (Auto) 0.05 K/uL (0-0.5) Basophils # (Auto) 0.01 K/uL (0-0.2) RDW Standard Deviation 46.0 fL (36.4-46.3) RDW Coefficient of Variation 14.8 % (11.5-14.5) Immature Granulocyte % (Auto) 0.5 % Immature Granulocyte # (Auto) 0.04 K/uL (0.00-0.02) Anion Gap 6.0 mmol/L (3-11) Est Creatinine Clear Calc Drug Dose 72.9 ml/min Estimated GFR () 98.7 Estimated GFR (Non- 85.1 BUN/Creatinine Ratio 16.0 (10-20) Calcium Level 9.0 mg/dl (8.5-10.1) Total Bilirubin 0.9 mg/dl (0.2-1) Direct Bilirubin 0.2 mg/dl (0-0.2) Aspartate Amino Transf (AST/SGOT) 22 U/L (15-37) Alanine Aminotransferase (ALT/SGPT) 49 U/L (12-78) Alkaline Phosphatase 67 U/L (45-117) Total Protein 6.5 gm/dl (6.4-8.2) Albumin 3.4 gm/dl (3.4-5.0) Lipase 206 U/L (73-393) Bedside Lactic Acid Venous 0.89 mmol/L (0.90-1.70) Labs reviewed by ED physician. Medications Administered Medications (Trade) Dose Ordered Sig/Guille Route Start Time Stop Time Status Last Admin Dose Admin Albuterol/ Ipratropium (Duoneb) 12 ml ONE ONCE INH 04/11/17 18:15 04/11/17 18:16 DC 04/11/17 18:31 12 ML ED Course 1706: Past medical records reviewed. The patient was evaluated in room C1B. A complete history and physical examination was performed. 1750: Ordered Ventolin 0.5% 2.5MG/0.5ML Neb 2.5 mg INH. 1815: Ordered Duoneb 12 ml INH. Medical Decision Differential Diagnosis: Influenza, other viral illness, pneumonia, urinary tract infection, metabolic abnormality, medication effect, cellulitis, meningitis, intra-abdominal source. Medication Reconciliation: I attest that I have personally reviewed the patient' s current medication list Blood Pressure Screening: Patient was found to have normal blood pressure on screening and does not require follow up. Resident Physician Supervision Note: I interviewed and examined the patient. Discussed with Dr. Aragon and agree with findings and plan as documented in the note. Documented By: Felipe Pardo Impression Primary Impression: Acute bronchitis Scribe Attestation The scribe's documentation has been prepared under my direction and personally reviewed by me in its entirety. I confirm that the note above accurately reflects all work, treatment, procedures, and medical decision making performed by me. Departure Information Dispostion Home / Self-Care Referrals Yelena Canales DO (PCP) Patient Instructions My [facility] Problem Qualifiers Primary Impression: Acute bronchitis Bronchitis organism: unspecified organism Qualified Codes: J20.9 - Acute bronchitis, unspecified
--- NOTE | 2017-04-11 17:31 | EMERGENCY ROOM VISIT NOTE ---
History First contact with patient: 16:40 Chief Complaint: FEVER Stated Complaint: COUGH, FEVER, REFERRED BY DOCTOR History of Present Illness The patient is a 77 year old male who presents to the Emergency Room with complaints of fever and cough. The patient has been feeling generally unwell since Sunday, complaining of fatigue and productive cough. His states that yesterday he had a temperature of 101.4. The patient also has been intermittent abdominal pain but states that has been chronic over the last few months. The patient has a history of neutropenia and is also currently being treated by Dr. Zheng for Thrombocytopenia with a treatment upcoming on Sunday. The patient currently denies any fever, chills, abdominal pain, vomiting, diarrhea, or any other acute complaints. He states he just feels generally unwell and very tired and fatigued. Review of Systems See HPI for pertinent positives and negatives. A total of ten systems were reviewed and were otherwise negative. Past Medical/Surgical History Medical Problems: (1) Angina (2) Benign hypertension (3) Bilateral hip replacement (4) Bronchitis (5) CAD (coronary artery disease) (6) Chest pain (7) COPD (chronic obstructive pulmonary disease) (8) Diverticulitis (9) Diverticulosis (10) GERD (gastroesophageal reflux disease) (11) Headache (12) Heart disease (13) Hyperlipidemia (14) Hypertension (15) Neutropenic fever (16) Pneumonia (17) Splenomegaly (18) Stomach problems (19) Unstable angina Surgical Problems: (1) H/O prostatectomy Family History FH: diabetes mellitus FH: gallbladder disease FH: heart disease Hypertension Kidney disease Kidney stones Social History Smoking Status: Never Smoker Alcohol Use: none Drug Use: none Marital Status: Housing Status: lives with family Occupation Status: retired Current/Historical Medications Scheduled Budesonide (Inhalation) (Pulmicort Respules 0.5MG/2ML), 0.5 MG PO DIRECTED Budesonide/Formoterol Fumarate (Symbicort 160/4.5 Inhaler), 1 PUFF PO BID Cholecalciferol (Vitamin D 1000 Unit), 2,000 INTER.UNIT PO DAILY Donepezil HCl (Aricept), 10 MG PO HS Ferrous Gluconate (Iron Supplement), 324 MG PO DAILY Fexofenadine HCl (Mucinex Allergy), 180 MG PO BID Ipratropium-Albuterol (Combivent Respimat), 1 PUFFS INH BID Isosorbide Mononitrate Ext Rel (Imdur Ext Rel), 60 MG PO QAM Loratadine (Claritin), 10 MG PO DAILY Metoprolol Tartrate (Lopressor) (Lopressor), 25 MG PO BID Montelukast Sod (Montelukast Sodium), 10 MG PO DAILY Multivitamin (Multivitamin), 1 TAB PO DAILY Prednisone (Prednisone), 5 MG PO DAILY Ranitidine Hcl (Zantac), 300 MG PO BID Scheduled PRN Nitroglycerin (Nitrostat), 0.4 MG UT UD PRN for Chest Pain Tramadol (Ultram), 50-100 MG PO Q4H PRN for Pain Allergies Coded Allergies: Ibuprofen (Verified Allergy, Mild, ULCERS, 04/11/17) Physical Exam Vital Signs Date Time Temp Pulse Resp B/P (MAP) Pulse Ox O2 Delivery O2 Flow Rate FiO2 04/11/17 19:38 89 18 110/49 97 Nebulizer 04/11/17 18:31 88 18 96 Room Air 04/11/17 17:49 86 04/11/17 17:41 86 16 122/76 93 04/11/17 15:11 37.4 91 18 128/69 93 Room Air Physical Exam GENERAL: Awake, alert, well-appearing, in no distress HENT: Normocephalic, atraumatic. Oropharynx unremarkable. EYES: Normal conjunctiva. Sclera non-icteric. NECK: Supple. No nuchal rigidity. FROM. No JVD. RESPIRATORY: Bilateral wheezing in all lung valentin CARDIAC: Regular rate, normal rhythm. Extremities warm and well perfused. Pulses equal. ABDOMEN: Soft, non-distended. No tenderness to palpation. No rebound or guarding. No masses. RECTAL: Deferred. MUSCULOSKELETAL: Chest examination reveals no tenderness. The back is symmetrical on inspection without obvious abnormality. There is no CVA tenderness to palpation. LOWER EXTREMITIES: Calves are equal size bilaterally and non-tender. +1 pitting edema in the lower extremities. NEURO: Normal sensorium. No sensory or motor deficits noted. SKIN: No rash or jaundice noted. Medical Decision & Procedures Laboratory Results 04/11/17 17:23 Red Blood Count 4.62, Mean Corpuscular Volume 85.5, Mean Corpuscular Hemoglobin 29.2, Mean Corpuscular Hemoglobin Concent 34.2, Mean Platelet Volume 9.3, Neutrophils (%) (Auto) 68.0, Lymphocytes (%) (Auto) 19.1, Monocytes (%) (Auto) 11.7, Eosinophils (%) (Auto) 0.6, Basophils (%) (Auto) 0.1, Neutrophils # (Auto ) 5.31, Lymphocytes # (Auto) 1.49, Monocytes # (Auto) 0.91, Eosinophils # (Auto ) 0.05, Basophils # (Auto) 0.01 04/11/17 17:23 Test 04/11/17 17:23 04/11/17 17:30 White Blood Count 7.81 K/uL (4.8-10.8) Red Blood Count 4.62 M/uL (4.7-6.1) Hemoglobin 13.5 g/dL (14.0-18.0) Hematocrit 39.5 % (42-52) Mean Corpuscular Volume 85.5 fL (80-100) Mean Corpuscular Hemoglobin 29.2 pg (25-34) Mean Corpuscular Hemoglobin Concent 34.2 g/dl (32-36) Platelet Count 106 K/uL (130-400) Mean Platelet Volume 9.3 fL (7.4-10.4) Neutrophils (%) (Auto) 68.0 % Lymphocytes (%) (Auto) 19.1 % Monocytes (%) (Auto) 11.7 % Eosinophils (%) (Auto) 0.6 % Basophils (%) (Auto) 0.1 % Neutrophils # (Auto) 5.31 K/uL (1.4-6.5) Lymphocytes # (Auto) 1.49 K/uL (1.2-3.4) Monocytes # (Auto) 0.91 K/uL (0.11-0.59) Eosinophils # (Auto) 0.05 K/uL (0-0.5) Basophils # (Auto) 0.01 K/uL (0-0.2) RDW Standard Deviation 46.0 fL (36.4-46.3) RDW Coefficient of Variation 14.8 % (11.5-14.5) Immature Granulocyte % (Auto) 0.5 % Immature Granulocyte # (Auto) 0.04 K/uL (0.00-0.02) Anion Gap 6.0 mmol/L (3-11) Est Creatinine Clear Calc Drug Dose 72.9 ml/min Estimated GFR () 98.7 Estimated GFR (Non- 85.1 BUN/Creatinine Ratio 16.0 (10-20) Calcium Level 9.0 mg/dl (8.5-10.1) Total Bilirubin 0.9 mg/dl (0.2-1) Direct Bilirubin 0.2 mg/dl (0-0.2) Aspartate Amino Transf (AST/SGOT) 22 U/L (15-37) Alanine Aminotransferase (ALT/SGPT) 49 U/L (12-78) Alkaline Phosphatase 67 U/L (45-117) Total Protein 6.5 gm/dl (6.4-8.2) Albumin 3.4 gm/dl (3.4-5.0) Lipase 206 U/L (73-393) Bedside Lactic Acid Venous 0.89 mmol/L (0.90-1.70) Medications Administered Medications (Trade) Dose Ordered Sig/Guille Route Start Time Stop Time Status Last Admin Dose Admin Albuterol/ Ipratropium (Duoneb) 12 ml ONE ONCE INH 04/11/17 18:15 04/11/17 18:16 DC 04/11/17 18:31 12 ML Medical Decision Patient is a 77 year old male that presents with a 2 day history of fever and cough Etiologies such as viral syndrome, pharyngitis, pneumonia, urinary tract infection, sepsis, bacteremia, meningitis, as well as others were entertained. Labs: CBC, BMP, LFT, Lipase, Lactic Acid Imaging: Chest X-Ray Intervention: Duoneb breathing treatment Impression Primary Impression: Cough Additional Impression: Thrombocytopenia Departure Information Dispostion Home / Self-Care Condition GOOD Prescriptions Pantoprazole (Protonix) 40 Mg Tab 40 MG PO DAILY, #30 TAB Prov: Georges Aragon .MD 04/11/17 Referrals Brad Mason III, CRNP (PCP) Patient Instructions My [facility] Problem Qualifiers
[2017-04-11 17:35] LABS: BASO % 0.1 %; BASO ABS # 0.01 K/uL (0-0.2); COMPLETE YES; EOS % 0.6 %; HEMATOCRIT 39.5 % (42-52); IG% 0.5 %; LYMPH % 19.1 %; LYMPH ABS # 1.49 K/uL (1.2-3.4); MEAN CELL VOLUME 85.5 fL (80-100); MEAN CORPUSCULAR HEMOGLOBIN 29.2 pg (25-34); MEAN CORPUSCULAR HGB CONC 34.2 g/dl (32-36); MEAN PLATELET VOLUME 9.3 fL (7.4-10.4); MONO % 11.7 %; PLATELET COUNT 106 K/uL (130-400); RED BLOOD COUNT 4.62 M/uL (4.7-6.1); WHITE BLOOD COUNT 7.81 K/uL (4.8-10.8)
[2017-04-11] MEDS ORDERED: ALBUTEROL 0.5% NEB SOLN 2.5 MG/0.5 ML VIAL INH STA (17:50)
[2017-04-11 18:01] LABS: CREATININE 0.81 mg/dl (0.60-1.40)
[2017-04-11] MEDS ORDERED: ALBUT/IPRATROP 3MG/0.5MG NEB 3 ML VIAL INH ONE (18:15)
[2017-04-11 18:31] VITALS: PULSE 88; O2SAT 96
--- NOTE | 2017-04-11 19:59 | DIAGNOSTIC IMAGING REPORT ---
CHEST 2 VIEWS ROUTINE CLINICAL HISTORY: Fever, Cough COMPARISON STUDY: Chest radiograph January 19, 2017. FINDINGS: Lung volumes are mildly diminished. Mild left basilar opacity favors atelectasis. There is no pneumothorax or pleural effusion. There is no evidence of pulmonary edema. Cardiomediastinal silhouette is stable. IMPRESSION: Mild left basilar opacity which favors atelectasis. Electronically signed by: Billy Wilson M.D. 04/11/2017 7:58 PM Dictated Date/Time: 04/11/2017 7:57 PM
[2017-04-11] MEDS ORDERED: PANT40TA PO (20:40)
[2017-04-11 20:53] VITALS: BP 105/60; PULSE 88; O2SAT 92
[2017-05-14] MEDS ORDERED: NITR0.4S UT (00:46)
[2017-05-14] MEDS ORDERED: ZNT/150 PO (06:55)
[2017-05-14] MEDS ORDERED: CHOL100027 PO (06:55)
[2017-05-14] MEDS ORDERED: DONE5TAB9 PO (12:42)
[2017-05-14] MEDS ORDERED: TRAM-10 PO (13:17)
[2017-05-14] MEDS ORDERED: FERR324T PO (13:17)
[2017-05-14] MEDS ORDERED: ISOS60TA25 PO (13:17)
[2017-05-15] MEDS ORDERED: APIX1TAB3 PO (10:06)
== END 2017-04-11 20:53 | disposition home or self-care (01) ==
LOC: C.EDB 14:48 → C.EDC 20:53
DX: J44.0 Chronic obstructive pulmonary disease with (acute) lower respiratory infection (principal); D69.6 Thrombocytopenia, unspecified; I10 Essential (primary) hypertension; I25.10 Atherosclerotic heart disease of native coronary artery without angina pectoris; K21.9 Gastro-esophageal reflux disease without esophagitis; Z87.01 Personal history of pneumonia (recurrent); Z96.643 Presence of artificial hip joint, bilateral; Z90.79 Acquired absence of other genital organ(s); Z83.3 Family history of diabetes mellitus; Z82.49 Family history of ischemic heart disease and other diseases of the circulatory system; Z84.1 Family history of disorders of kidney and ureter; Z79.899 Other long term (current) drug therapy

== ENCOUNTER 2017-04-29 11:29 | Emergency (ER) | payer BC ==
[~2017-04-29] VITALS: Ht 157.5 cm; Wt 91.7 kg
[~2017-04-29 11:29] MED LIST changes: -ACET-749 PO; -B-COCAP5 PO; -CLOP1TAB15 PO; +PANT40TA PO
[2017-04-29 11:34] VITALS: TEMP 36.8; Ht 157.5 cm; Wt 91.7 kg
--- NOTE | 2017-04-29 11:54 | EMERGENCY ROOM VISIT NOTE ---
History Report prepared by Simi: Taya Srivastava Under the Supervision of: Dr. Rio Rosenthal M.D. First contact with patient: 11:39 Chief Complaint: ABDOMINAL PAIN Stated Complaint: STOMACH ACHE History of Present Illness The patient is a 77 year old male who presents to the Emergency Room with complaints of worsening lower abdominal pain that started 2 weeks ago. He describes the pain as burning. The patient is also experiencing abdominal bloating, but denies nausea and vomiting. His states that both of his legs are more edematous than usual. The patient had a normal bowel movement this morning. He states that he experienced chills upon arrival to the ED but he has not recorded any fevers. The patient's states that the patient has mild dementia. She states that the patient has been experiencing intermittent abdominal pain for the past 3 years. He has seen Dr. Stanton's office for similar symptoms in the past. His states that Margaret Mucil improved his symptoms 3 years ago. The patient has a history of diverticulitis. He also has a history of ITP and his states that he just 4 weeks of infusions for it. The patient had a CT of his abdomen and pelvis performed 4 months ago which revealed diverticulosis but no diverticulitis. Source of History: patient, spouse/significant other () Onset: 2 weeks ago Position: abdomen (lower) Quality: burning Timing: worsening Associated Symptoms: + chills, No fevers, No nausea, No vomiting Note: abdominal bloating, bilateral lower extremity edema, Review of Systems All systems have been listed, reviewed, and are negative other than those previously mentioned. Please see Additional Medical History Sheet. Past Medical & Surgical Medical Problems: (1) Angina (2) Asthma (3) Benign hypertension (4) Bilateral hip replacement (5) Bronchitis (6) CAD (coronary artery disease) (7) Chest pain (8) COPD (chronic obstructive pulmonary disease) (9) Diverticulitis (10) Diverticulosis (11) GERD (gastroesophageal reflux disease) (12) Headache (13) Heart disease (14) Hyperlipidemia (15) Hypertension (16) Neutropenic fever (17) Pneumonia (18) Splenomegaly (19) Stomach problems (20) Unstable angina Surgical Problems: (1) H/O prostatectomy (2) History of bilateral hip replacements Family History FH: diabetes mellitus FH: gallbladder disease FH: heart disease Hypertension Kidney disease Kidney stones Social History Smoking Status: Never Smoker Alcohol Use: none Drug Use: none Marital Status: Housing Status: lives with family Occupation Status: retired Current/Historical Medications Scheduled Budesonide (Inhalation) (Pulmicort Respules 0.5MG/2ML), 0.5 MG PO DIRECTED Budesonide/Formoterol Fumarate (Symbicort 160/4.5 Inhaler), 1 PUFF PO BID Cholecalciferol (Vitamin D 1000 Unit), 2,000 INTER.UNIT PO DAILY Ciprofloxacin Hcl (Cipro), 1 TAB PO BID Donepezil HCl (Aricept), 10 MG PO HS Ferrous Gluconate (Iron Supplement), 324 MG PO DAILY Fexofenadine HCl (Mucinex Allergy), 180 MG PO BID Ipratropium-Albuterol (Combivent Respimat), 1 PUFFS INH BID Isosorbide Mononitrate Ext Rel (Imdur Ext Rel), 60 MG PO QAM Loratadine (Claritin), 10 MG PO DAILY Metoprolol Tartrate (Lopressor) (Lopressor), 25 MG PO BID Metronidazole (Flagyl), 500 MG PO BID Montelukast Sod (Montelukast Sodium), 10 MG PO DAILY Multivitamin (Multivitamin), 1 TAB PO DAILY Pantoprazole (Protonix), 40 MG PO DAILY Prednisone (Prednisone), 5 MG PO DAILY Ranitidine Hcl (Zantac), 300 MG PO BID Scheduled PRN Nitroglycerin (Nitrostat), 0.4 MG UT UD PRN for Chest Pain Tramadol (Ultram), 50-100 MG PO Q4H PRN for Pain Allergies Coded Allergies: Ibuprofen (Verified Allergy, Mild, ULCERS, 04/29/17) Physical Exam Vital Signs Date Time Temp Pulse Resp B/P (MAP) Pulse Ox O2 Delivery O2 Flow Rate FiO2 04/29/17 13:25 76 20 174/72 96 Room Air 04/29/17 11:34 36.8 70 20 178/103 95 Room Air Physical Exam GENERAL: Patient awake, alert, oriented x 3. Patient follows commands. Patient does not appear toxic. Patient is adequately hydrated and well- nourished. SKIN: No erythema, pallor, cyanosis or rash HEENT: Normal head, pupils equal, reactive to light and accommodation. LUNGS: Clear to auscultation. No wheezes, no rales, no rhonchi. HEART: No murmurs. No gallops. No rubs ABDOMEN: Distended, bowel sounds present, nontender, no masses, no rebound, no hepatomegaly or splenomegaly. EXTREMITIES: No signs of trauma. 2+ pretibial pitting edema. No calf or thigh tenderness. NEUROLOGIC: Cranial nerves II-XII within normal limits. No gross motor sensory function deficits. Medical Decision & Procedures ER Provider Diagnostic Interpretation: Radiology results as stated below per my review and radiologist interpretation: CHEST 2 VIEWS ROUTINE FINDINGS: The cardiac and mediastinal contours are normal. There is no evidence of focal pulmonary consolidation. There is no evidence of failure. No pleural effusions are visualized.[ There are improving left basilar atelectatic changes. IMPRESSION: No active disease in the chest. Electronically signed by: Bridger Veras M.D. 04/29/2017 12:27 PM Dictated Date/Time: 04/29/2017 12:[address] ABD/PELVIS IV AND ORAL CONT FINDINGS: Lower chest: There are by basilar atelectatic changes. There is respiratory motion artifact. There is a small hiatal hernia. Liver: There is mild hepatic steatosis. No focal masses are visualized. Gallbladder: Unremarkable. Spleen: There is a 5 mm hypodensity within the inferior aspect of the spleen. There is a 1 cm hypodensity within the spleen superiorly. The spleen is enlarged measuring 13 cm Pancreas: Unremarkable. Adrenal glands: Unremarkable. Kidneys: There is a stable 1 cm left renal hypodensity likely representing a cyst Bowel: There are no transition zones indicate bowel obstruction. There is extensive colonic diverticulosis. There is mild sigmoid bowel wall thickening with very subtle infiltration of the perisigmoid fat. The findings are consistent with minimal diverticulitis. Follow-up is recommended as an underlying colonic mass cannot be excluded. There is no evidence of acute diverticulitis Peritoneum: There is no intraperitoneal free air or abdominal ascites. There are bilateral fat-containing inguinal hernias. There is a tiny fat-containing umbilical hernia, and tiny fat-containing ventral hernia. Vasculature: The abdominal aorta is normal in course and caliber. Adenopathy: None. Pelvic viscera: Evaluation the pelvis is limited due to artifact from bilateral hip arthroplasties. Skeletal structures: There are postsurgical changes of bilateral total hip arthroplasties. IMPRESSION: 1. No evidence of bowel obstruction. No evidence of free air 2. Extensive pandiverticulosis. 3. Mild acute diverticulitis involving the sigmoid colon 4. No evidence of acute appendicitis 5. Fat-containing bilateral inguinal hernias 6. Persistent mild splenomegaly Electronically signed by: Bridger Veras M.D. 04/29/2017 2:37 PM Dictated Date/Time: 04/29/2017 2:31 PM Laboratory Results 04/29/17 12:00 Red Blood Count 4.82, Mean Corpuscular Volume 87.3, Mean Corpuscular Hemoglobin 29.0, Mean Corpuscular Hemoglobin Concent 33.3, Mean Platelet Volume 9.5, Neutrophils (%) (Auto) 69.2, Lymphocytes (%) (Auto) 17.8, Monocytes (%) (Auto) 10.2, Eosinophils (%) (Auto) 2.1, Basophils (%) (Auto) 0.1, Neutrophils # (Auto ) 4.68, Lymphocytes # (Auto) 1.20, Monocytes # (Auto) 0.69, Eosinophils # (Auto ) 0.14, Basophils # (Auto) 0.01 04/29/17 12:00 Test 04/29/17 12:00 04/29/17 12:08 White Blood Count 6.76 K/uL (4.8-10.8) Red Blood Count 4.82 M/uL (4.7-6.1) Hemoglobin 14.0 g/dL (14.0-18.0) Hematocrit 42.1 % (42-52) Mean Corpuscular Volume 87.3 fL (80-100) Mean Corpuscular Hemoglobin 29.0 pg (25-34) Mean Corpuscular Hemoglobin Concent 33.3 g/dl (32-36) Platelet Count 97 K/uL (130-400) Mean Platelet Volume 9.5 fL (7.4-10.4) Neutrophils (%) (Auto) 69.2 % Lymphocytes (%) (Auto) 17.8 % Monocytes (%) (Auto) 10.2 % Eosinophils (%) (Auto) 2.1 % Basophils (%) (Auto) 0.1 % Neutrophils # (Auto) 4.68 K/uL (1.4-6.5) Lymphocytes # (Auto) 1.20 K/uL (1.2-3.4) Monocytes # (Auto) 0.69 K/uL (0.11-0.59) Eosinophils # (Auto) 0.14 K/uL (0-0.5) Basophils # (Auto) 0.01 K/uL (0-0.2) RDW Standard Deviation 49.2 fL (36.4-46.3) RDW Coefficient of Variation 15.3 % (11.5-14.5) Immature Granulocyte % (Auto) 0.6 % Immature Granulocyte # (Auto) 0.04 K/uL (0.00-0.02) Platelet Estimate DECREASED Anion Gap 4.0 mmol/L (3-11) Est Creatinine Clear Calc Drug Dose 61.7 ml/min Estimated GFR () 86.3 Estimated GFR (Non- 74.5 BUN/Creatinine Ratio 9.3 (10-20) Calcium Level 9.3 mg/dl (8.5-10.1) Total Bilirubin 0.5 mg/dl (0.2-1) Aspartate Amino Transf (AST/SGOT) 20 U/L (15-37) Alanine Aminotransferase (ALT/SGPT) 40 U/L (12-78) Alkaline Phosphatase 71 U/L (45-117) Troponin I < 0.015 ng/ml (0-0.045) Total Protein 6.1 gm/dl (6.4-8.2) Albumin 3.3 gm/dl (3.4-5.0) Globulin 2.8 gm/dl (2.5-4.0) Albumin/Globulin Ratio 1.2 (0.9-2) Lipase 165 U/L (73-393) Urine Color YELLOW Urine Appearance CLEAR (CLEAR) Urine pH 8.0 (4.5-7.5) Urine Specific [place] 1.022 (1.000-1.030) Urine Protein NEG (NEG) Urine Glucose (UA) NEG (NEG) Urine Ketones NEG (NEG) Urine Occult Blood NEG (NEG) Urine Nitrite NEG (NEG) Urine Bilirubin NEG (NEG) Urine Urobilinogen NEG (NEG) Urine Leukocyte Esterase NEG (NEG) Laboratory results as stated above per my review. ECG Indication: abdominal pain Rate (beats per minute): 73 Rhythm: normal sinus Findings: no acute ischemic change, no ectopy ED Course 1140: Past medical records reviewed. The patient was evaluated in room B10. A complete history and physical examination was performed. 1446: Upon reevaluation, the patient appeared to have improvement of his symptoms. I discussed today's findings with him. He verbalized agreement of the treatment plan. He was discharged home. Medical Decision Nurses notes reviewed. Medical history sheet reviewed. Differential diagnosis includes but is not limited to: bowel obstruction, diverticulitis, gastroenteritis, congestive heart failure. Multiple labs, urinalysis and imaging were obtained. Please see above. Patient appears to have some sigmoid diverticulitis. He is in mild to moderate distress. I believe that he is safely return home. He will be placed on Cipro and Flagyl. The patient is able to drink fluids. The patient has tramadol at home as needed for pain medication. The patient will need follow-up to make sure he is feeling better. Radiologist mentioned the possibility of a colonic mass. Follow-up will be helpful to rule that out. Medication Reconcilliation Current Medication List: was personally reviewed by me Blood Pressure Screening Patient's blood pressure: Elevated blood pressure Blood pressure disposition: Referred to PCP Impression Primary Impression: Sigmoid diverticulitis Scribe Attestation The scribe's documentation has been prepared under my direction and personally reviewed by me in its entirety. I confirm that the note above accurately reflects all work, treatment, procedures, and medical decision making performed by me. Departure Information Dispostion Home / Self-Care Prescriptions Metronidazole (Flagyl) 500 Mg Tab 500 MG PO BID, #20 TAB Prov: Rio Rosenthal M.D. 04/29/17 Ciprofloxacin Hcl (CIPRO) 500 Mg Tab 1 TAB PO BID for 10 Days, #20 TAB Prov: Rio Rosenthal M.D. 04/29/17 Referrals Yelena Canales DO (PCP) Forms HOME CARE DOCUMENTATION FORM, IMPORTANT VISIT INFORMATION Patient Instructions My [facility] Additional Instructions Stop so all you people your almost any alternate Physical Take one Cipro twice a day. Take 1 Flagyl twice a day. Take 1 tramadol every 4 hours as needed for pain. Follow-up with your family physician within the next 7 days. Return here sooner if your pain is getting worse or if you are unable to hold down liquids.
[2017-04-29 12:16] LABS: HEMATOCRIT 42.1 % (42-52); MEAN CELL VOLUME 87.3 fL (80-100); MEAN CORPUSCULAR HGB CONC 33.3 g/dl (32-36); RED BLOOD COUNT 4.82 M/uL (4.7-6.1); WHITE BLOOD COUNT 6.76 K/uL (4.8-10.8)
--- NOTE | 2017-04-29 12:28 | DIAGNOSTIC IMAGING REPORT ---
CHEST 2 VIEWS ROUTINE CLINICAL HISTORY: peripheral edema COMPARISON STUDY: 04/11/2017 FINDINGS: The cardiac and mediastinal contours are normal. There is no evidence of focal pulmonary consolidation. There is no evidence of failure. No pleural effusions are visualized.[ There are improving left basilar atelectatic changes. IMPRESSION: No active disease in the chest. Electronically signed by: Bridger Veras M.D. 04/29/2017 12:27 PM Dictated Date/Time: 04/29/2017 12:26 PM
[2017-04-29 12:30] LABS: URINE APPEARANCE CLEAR (CLEAR); URINE BILIRUBIN NEG (NEG); URINE COLOR YELLOW; URINE NITRITE NEG (NEG); URINE SPECIFIC GRAVITY 1.022 (1.000-1.030); UROBILINOGEN NEG (NEG); ZZUR CULT IF INDIC CLEAN CATCH NO
[2017-04-29] MEDS ORDERED: OPTIRAY 320 IV PRN (12:30)
[2017-04-29 12:36] LABS: ALT/SGPT 40 U/L (12-78); AST/SGOT 20 U/L (15-37); BLOOD UREA NITROGEN 9 mg/dl (7-18); BUN/CREATININE RATIO 9.3 (10-20); CALCIUM 9.3 mg/dl (8.5-10.1); CARBON DIOXIDE 32 mmol/L (21-32); CHLORIDE 107 mmol/L (98-107); CREATININE 0.97 mg/dl (0.60-1.40); GLUCOSE 117 mg/dl (70-99); POTASSIUM 4.2 mmol/L (3.5-5.1); SODIUM 143 mmol/L (136-145)
[2017-04-29 12:38] LABS: MANUAL MICROSCOPIC REQUIRED? NO; REVIEW REQ? NO
[2017-04-29 12:40] LABS: ALB/GLOB RATIO 1.2 (0.9-2); ALKALINE PHOSPHATASE 71 U/L (45-117)
[2017-04-29 12:43] LABS: MEAN PLATELET VOLUME 9.5 fL (7.4-10.4); PLATELET COUNT 97 K/uL (130-400)
[2017-04-29 12:45] LABS: BASO % 0.1 %; BASO ABS # 0.01 K/uL (0-0.2); COMPLETE YES; EOS % 2.1 %; IG% 0.6 %; LYMPH % 17.8 %; MONO % 10.2 %; NEUT % 69.2 %; PLT ESTIMATE DECREASED
--- NOTE | 2017-04-29 14:38 | DIAGNOSTIC IMAGING REPORT ---
CT ABD/PELVIS IV AND ORAL CONT CLINICAL HISTORY: Mid abdominal pain and bloating COMPARISON STUDY: 12/13/2016 TECHNIQUE: Following the IV administration of 94 mL of Optiray-320, CT scan of the abdomen and pelvis was performed from the lung bases to the proximal femurs. Images are reviewed in the axial, sagittal, and coronal planes. IV contrast was administered without complication. A dose lowering technique was utilized adhering to the principles of ALARA. CT DOSE: 1072.53 mGy.cm FINDINGS: Lower chest: There are by basilar atelectatic changes. There is respiratory motion artifact. There is a small hiatal hernia. Liver: There is mild hepatic steatosis. No focal masses are visualized. Gallbladder: Unremarkable. Spleen: There is a 5 mm hypodensity within the inferior aspect of the spleen. There is a 1 cm hypodensity within the spleen superiorly. The spleen is enlarged measuring 13 cm Pancreas: Unremarkable. Adrenal glands: Unremarkable. Kidneys: There is a stable 1 cm left renal hypodensity likely representing a cyst Bowel: There are no transition zones indicate bowel obstruction. There is extensive colonic diverticulosis. There is mild sigmoid bowel wall thickening with very subtle infiltration of the perisigmoid fat. The findings are consistent with minimal diverticulitis. Follow-up is recommended as an underlying colonic mass cannot be excluded. There is no evidence of acute diverticulitis Peritoneum: There is no intraperitoneal free air or abdominal ascites. There are bilateral fat-containing inguinal hernias. There is a tiny fat-containing umbilical hernia, and tiny fat-containing ventral hernia. Vasculature: The abdominal aorta is normal in course and caliber. Adenopathy: None. Pelvic viscera: Evaluation the pelvis is limited due to artifact from bilateral hip arthroplasties. Skeletal structures: There are postsurgical changes of bilateral total hip arthroplasties. IMPRESSION: 1. No evidence of bowel obstruction. No evidence of free air 2. Extensive pandiverticulosis. 3. Mild acute diverticulitis involving the sigmoid colon 4. No evidence of acute appendicitis 5. Fat-containing bilateral inguinal hernias 6. Persistent mild splenomegaly Electronically signed by: Bridger Veras M.D. 04/29/2017 2:37 PM Dictated Date/Time: 04/29/2017 2:31 PM
[2017-04-29] MEDS ORDERED: CIPR-255 PO (14:59)
[2017-04-29] MEDS ORDERED: METR-163 PO (14:59)
[2017-04-29] MEDS ORDERED: CIPROFLOXACIN 500 MG TAB ONE (15:40)
[2017-04-29] MEDS ORDERED: METRONIDAZOLE 250 MG TAB ONE (15:41)
[2017-04-29] MEDS ORDERED: EMPTY 8 DRAM VIAL ONE (15:42)
[2017-04-29 15:55] VITALS: BP 161/92; PULSE 86; O2SAT 96
[2017-05-14] MEDS ORDERED: NITR0.4S UT (00:46)
[2017-05-14] MEDS ORDERED: ZNT/150 PO (06:55)
[2017-05-14] MEDS ORDERED: CHOL100027 PO (06:55)
[2017-05-14] MEDS ORDERED: DONE5TAB9 PO (12:42)
[2017-05-14] MEDS ORDERED: TRAM-10 PO (13:17)
[2017-05-14] MEDS ORDERED: FERR324T PO (13:17)
[2017-05-14] MEDS ORDERED: ISOS60TA25 PO (13:17)
[2017-05-15] MEDS ORDERED: APIX1TAB3 PO (10:06)
== END 2017-04-29 15:58 | disposition home or self-care (01) ==
LOC: C.EDB 11:31
DX: K57.32 Diverticulitis of large intestine without perforation or abscess without bleeding (principal); K57.90 Diverticulosis of intestine, part unspecified, without perforation or abscess without bleeding; I10 Essential (primary) hypertension; J45.909 Unspecified asthma, uncomplicated; Z96.643 Presence of artificial hip joint, bilateral; I25.10 Atherosclerotic heart disease of native coronary artery without angina pectoris; J44.9 Chronic obstructive pulmonary disease, unspecified; K21.9 Gastro-esophageal reflux disease without esophagitis; E78.5 Hyperlipidemia, unspecified; Z90.79 Acquired absence of other genital organ(s); Z83.3 Family history of diabetes mellitus; Z82.49 Family history of ischemic heart disease and other diseases of the circulatory system; Z84.1 Family history of disorders of kidney and ureter

== ENCOUNTER 2017-05-14 15:07 | Observation (INO) | payer BC ==
[~2017-05-14] VITALS: Ht 152.4 cm; Wt 89.3 kg
[~2017-05-14 15:07] MED LIST changes: +CHOL100027 PO; +CIPR-255 PO; +DONE5TAB9 PO; +FERR324T PO; +ISOS60TA25 PO; +METR-163 PO; +NITR0.4S UT; +TRAM-10 PO; +ZNT/150 PO
[2017-05-14] MEDS ORDERED: ALBUT/IPRATROP 3MG/0.5MG NEB 3 ML VIAL INH STA ×2 (15:31→16:49)
--- NOTE | 2017-05-14 15:38 | EMERGENCY ROOM VISIT NOTE ---
History First contact with patient: 15:25 Chief Complaint: SHORTNESS OF BREATH Stated Complaint: CAN'T BREATHE History of Present Illness The patient is a 77 year old male who presents to the Emergency Room via private vehicle accompanied by with complaints of "can't breathe". The patient states that he has a history of COPD, emphysema and pneumonia. He states that for the last couple of days he's had a hard time breathing, and today over the past few hours has acutely worsened. He notes minimal cough, that is nonproductive. He denies any chest pain. He denies any swelling of his extremities. Denies any fevers or chills. He is prescribed prednisone, and nebulizers but has not done nebulizer treatments today. Review of Systems A complete 10-point Review of Systems was discussed with the patient, with pertinent positives and negatives listed in the History of Present Illness. All remaining Review of Systems questions can be considered negative unless otherwise specified. Past Medical/Surgical History Medical Problems: (1) Angina (2) Asthma (3) Benign hypertension (4) Bilateral hip replacement (5) Bronchitis (6) CAD (coronary artery disease) (7) Chest pain (8) COPD (chronic obstructive pulmonary disease) (9) Diverticulitis (10) Diverticulosis (11) GERD (gastroesophageal reflux disease) (12) Headache (13) Heart disease (14) Hyperlipidemia (15) Hypertension (16) Neutropenic fever (17) Pneumonia (18) Pulmonary emboli (19) Splenomegaly (20) Stomach problems (21) Unstable angina Surgical Problems: (1) H/O prostatectomy (2) History of bilateral hip replacements Family History FH: diabetes mellitus FH: gallbladder disease FH: heart disease Hypertension Kidney disease Kidney stones Social History Smoking Status: Never Smoker Alcohol Use: none Drug Use: none Marital Status: Housing Status: lives with family Occupation Status: retired Current/Historical Medications Scheduled Budesonide/Formoterol Fumarate (Symbicort 160/4.5 Inhaler), 1 PUFF PO BID Cholecalciferol (Vitamin D 1000 Unit), 2,000 INTER.UNIT PO DAILY Donepezil HCl (Aricept), 10 MG PO HS Ferrous Gluconate (Iron Supplement), 324 MG PO DAILY Fexofenadine HCl (Mucinex Allergy), 180 MG PO BID Ipratropium-Albuterol (Combivent Respimat), 1 PUFFS INH BID Ipratropium-Albuterol (Duoneb), 1 TREATMENT INH QID Isosorbide Mononitrate Ext Rel (Imdur Ext Rel), 60 MG PO QAM Loratadine (Claritin), 10 MG PO DAILY Metoprolol Tartrate (Lopressor) (Lopressor), 25 MG PO BID Montelukast Sod (Montelukast Sodium), 10 MG PO DAILY Multivitamin (Multivitamin), 1 TAB PO DAILY Prednisone (Prednisone), 5 MG PO DAILY Ranitidine Hcl (Zantac), 300 MG PO BID Scheduled PRN Nitroglycerin (Nitrostat), 0.4 MG UT UD PRN for Chest Pain Physical Exam Vital Signs Date Time Temp Pulse Resp B/P (MAP) Pulse Ox O2 Delivery O2 Flow Rate FiO2 05/14/17 18:40 69 20 139/73 96 Room Air 05/14/17 16:52 68 05/14/17 16:40 67 18 118/58 98 Room Air 05/14/17 15:48 98 Room Air 05/14/17 15:20 96 Room Air 05/14/17 15:11 36.6 67 22 158/83 95 Physical Exam VITAL SIGNS - Vital signs and nursing notes were reviewed. Stable. GENERAL -77-year-old male appearing his stated age who is in no acute distress. Communicates well with provider and answers questions appropriately. SKIN - Without rashes. HEAD - NC/AT. EYES - Sclera anicteric. EARS - No deformities of external structures noted on gross examination bilaterally. MOUTH/OROPHARYNX - Without perioral cyanosis. NECK - Neck with FROM. Supple to palpation. No lymphadenopathy noted. No nuchal rigidity. LUNGS - Chest wall symmetric without accessory muscle use, intercostals retractions, or central cyanosis. Decreased vesicular breath sounds CTA B/L. No wheezes, rales, or rhonchi appreciated. CARDIAC - RRR with S1/S2. No murmur, rubs, or gallops appreciated. EXTREMITIES - No clubbing or peripheral cyanosis. No pretibial edema present.+5/ 5 strength noted in UE/LE bilaterally. NEUROLOGIC - Cranial nerves II through XII grossly intact. Sensory intact to light touch throughout. Patellar reflexes +2/4. PSYCH - A&O. Pt is very pleasant and interacts well with examiner. Medical Decision & Procedures ER Provider Diagnostic Interpretation: CHEST FOR PE) ANGIO WITH CT DOSE: 579.25 mGy.cm HISTORY: Chest pain dyspnea TECHNIQUE: Multiaxial CT images of the chest were performed following the intravenous administration of contrast to evaluate the pulmonary arteries. Maximal intensity projection images were also obtained. A dose lowering technique was utilized adhering to the principles of ALARA. COMPARISON STUDY: 04/24/2016 FINDINGS: Limited study due to considerable patient somatic and respiratory motion. Lung bases are regions are considered nondiagnostic for evaluated despite apparent in homogeneity of enhancement. The central pulmonary vessels enhance appropriately. There is suggestion of a right middle lobe second order filling defect best seen transaxial image 171 as well as 175. Bibasilar interstitial/atelectatic change mild stable splenomegaly compared to the prior study. Considerable degenerative change thoracic spine. No acute compression deformity. IMPRESSION: 1. Limited study due to respiratory and somatic motion. 2. Study appears to be positive for at least 2 second-order right midlung emboli and possibly several third order basilar small emboli. 3. No evidence for main or central pulmonary embolus. 4. Basilar chronic interstitial and atelectatic change 5. Mild cardia megaly. The above report was generated using voice recognition software. It may contain grammatical, syntax or spelling errors. Electronically signed by: Luis Daniel Almeida M.D. 05/14/2017 5:18 PM Dictated Date/Time: 05/14/2017 5:10 PM CHEST 2 VIEWS ROUTINE CLINICAL HISTORY: Dyspnea pain COMPARISON STUDY: 04/29/2017 FINDINGS: The bones soft tissues and hemidiaphragms are normal. The cardiomediastinal silhouette is normal. The lungs are clear. The pulmonary vasculature is normal. IMPRESSION: Negative chest. The above report was generated using voice recognition software. It may contain grammatical, syntax or spelling errors. Electronically signed by: Luis Daniel Almeida M.D. 05/14/2017 4:24 PM Dictated Date/Time: 05/14/2017 4:24 PM Laboratory Results 05/14/17 15:48 Red Blood Count 4.48, Mean Corpuscular Volume 87.1, Mean Corpuscular Hemoglobin 29.0, Mean Corpuscular Hemoglobin Concent 33.3, Mean Platelet Volume 9.6, Neutrophils (%) (Auto) 60.5, Lymphocytes (%) (Auto) 25.8, Monocytes (%) (Auto) 10.6, Eosinophils (%) (Auto) 1.9, Basophils (%) (Auto) 0.2, Neutrophils # (Auto ) 3.73, Lymphocytes # (Auto) 1.59, Monocytes # (Auto) 0.65, Eosinophils # (Auto ) 0.12, Basophils # (Auto) 0.01 05/14/17 15:48 Test 05/14/17 15:48 05/14/17 15:54 White Blood Count 6.16 K/uL (4.8-10.8) Red Blood Count 4.48 M/uL (4.7-6.1) Hemoglobin 13.0 g/dL (14.0-18.0) Hematocrit 39.0 % (42-52) Mean Corpuscular Volume 87.1 fL (80-100) Mean Corpuscular Hemoglobin 29.0 pg (25-34) Mean Corpuscular Hemoglobin Concent 33.3 g/dl (32-36) Platelet Count 160 K/uL (130-400) Mean Platelet Volume 9.6 fL (7.4-10.4) Neutrophils (%) (Auto) 60.5 % Lymphocytes (%) (Auto) 25.8 % Monocytes (%) (Auto) 10.6 % Eosinophils (%) (Auto) 1.9 % Basophils (%) (Auto) 0.2 % Neutrophils # (Auto) 3.73 K/uL (1.4-6.5) Lymphocytes # (Auto) 1.59 K/uL (1.2-3.4) Monocytes # (Auto) 0.65 K/uL (0.11-0.59) Eosinophils # (Auto) 0.12 K/uL (0-0.5) Basophils # (Auto) 0.01 K/uL (0-0.2) RDW Standard Deviation 50.8 fL (36.4-46.3) RDW Coefficient of Variation 16.2 % (11.5-14.5) Immature Granulocyte % (Auto) 1.0 % Immature Granulocyte # (Auto) 0.06 K/uL (0.00-0.02) Prothrombin Time 10.2 SECONDS (9.0-12.0) Prothromb Time International Ratio 1.0 (0.9-1.1) Activated Partial Thromboplast Time 25.0 SECONDS (21.0-31.0) Partial Thromboplastin Ratio 1.0 Anion Gap 6.0 mmol/L (3-11) Est Creatinine Clear Calc Drug Dose 65.1 ml/min Estimated GFR () 92.0 Estimated GFR (Non- 79.4 BUN/Creatinine Ratio 16.9 (10-20) Calcium Level 8.4 mg/dl (8.5-10.1) Magnesium Level 2.0 mg/dl (1.8-2.4) Total Bilirubin 0.4 mg/dl (0.2-1) Aspartate Amino Transf (AST/SGOT) 22 U/L (15-37) Alanine Aminotransferase (ALT/SGPT) 35 U/L (12-78) Alkaline Phosphatase 66 U/L (45-117) Total Creatine Kinase 41 U/L (39-308) Creatine Kinase MB 1.1 ng/ml (0.5-3.6) Creatine Kinase MB Ratio 2.7 (0-3.0) Total Protein 5.9 gm/dl (6.4-8.2) Albumin 3.2 gm/dl (3.4-5.0) Globulin 2.7 gm/dl (2.5-4.0) Albumin/Globulin Ratio 1.2 (0.9-2) Thyroid Stimulating Hormone (TSH) 0.839 uIu/ml (0.300-4.500) Bedside D-Dimer > 450 ng/mlFEU (0-450) Bedside Troponin I < 0.030 ng/ml (0-0.045) Medications Administered Medications (Trade) Dose Ordered Sig/Guille Route Start Time Stop Time Status Last Admin Dose Admin Albuterol/ Ipratropium (Duoneb) 3 ml NOW STAT INH 05/14/17 15:31 05/14/17 15:33 DC 05/14/17 15:47 3 ML Albuterol/ Ipratropium (Duoneb) 3 ml NOW STAT INH 05/14/17 16:49 05/14/17 16:50 DC 05/14/17 17:21 3 ML ED Course Full evaluation was had in room C 10. Bedside EKG reveals no acute process. Chest x-ray unremarkable for acute process. To nebulized treatment were given and he was feeling much better. D-dimer positive. CT the chest reveal small emboli. Admitted for further evaluation and management. Medical Decision Patient was seen and evaluated as above. After obtaining a thorough history and physical examination IV access was initiated, and the above workup was performed. He presents to us today with shortness of breath. Bedside EKG reveals normal sinus rhythm, left axis deviation. Rate of 68 bpm. No evidence of ectopy or ischemic change. This was compared to previous, and no significant change was found. CBC reveals no leukocytosis. Anemia noted with hemoglobin of 13. Coags normal. A d-dimer was elevated, troponin was normal. Kidney function okay. Calcium slightly low at 8.4. Glucose at 153. TSH unremarkable. Chest x-ray no acute process. CTA of the chest was obtained secondary to dyspnea which reveals pulmonary emboli. He was given 2 nebulizer treatments here, and was feeling much better. Do believe that inpatient management is warranted to further treat his pulmonary emboli. I discussed the case with the attending physician, and subsequently the hospitalist. Please refer to further documentation regarding his stay. In evaluation treatment this patient following differential diagnoses entertained: IL, PE, COPD exacerbation, among others. Impression Primary Impression: Pulmonary emboli Additional Impression: Anemia Departure Information Dispostion Admitted as an inpatient Condition FAIR Referrals No Doctor, Assigned (PCP) Patient Instructions [facility] Problem Qualifiers
[2017-05-14 16:07] LABS: BASO % 0.2 %; BASO ABS # 0.01 K/uL (0-0.2); COMPLETE YES; EOS % 1.9 %; LYMPH % 25.8 %; LYMPH ABS # 1.59 K/uL (1.2-3.4); MEAN CELL VOLUME 87.1 fL (80-100); MEAN CORPUSCULAR HGB CONC 33.3 g/dl (32-36); MEAN PLATELET VOLUME 9.6 fL (7.4-10.4); MONO % 10.6 %; NEUT % 60.5 %; PLATELET COUNT 160 K/uL (130-400); RED BLOOD COUNT 4.48 M/uL (4.7-6.1); WHITE BLOOD COUNT 6.16 K/uL (4.8-10.8)
[2017-05-14 16:12] LABS: POINT OF CARE TROPONIN I < 0.030 ng/ml (0-0.045)
[2017-05-14 16:14] LABS: PROTHROMBIN TIME (PATIENT) 10.2 SECONDS (9.0-12.0)
[2017-05-14 16:25] LABS: BUN/CREATININE RATIO 16.9 (10-20); CALCIUM 8.4 mg/dl (8.5-10.1); CREATININE 0.92 mg/dl (0.60-1.40); POTASSIUM 4.1 mmol/L (3.5-5.1)
--- NOTE | 2017-05-14 16:26 | DIAGNOSTIC IMAGING REPORT ---
CHEST 2 VIEWS ROUTINE CLINICAL HISTORY: Dyspnea pain COMPARISON STUDY: 04/29/2017 FINDINGS: The bones soft tissues and hemidiaphragms are normal. The cardiomediastinal silhouette is normal. The lungs are clear. The pulmonary vasculature is normal. IMPRESSION: Negative chest. The above report was generated using voice recognition software. It may contain grammatical, syntax or spelling errors. Electronically signed by: Luis Daniel Almeida M.D. 05/14/2017 4:24 PM Dictated Date/Time: 05/14/2017 4:24 PM
[2017-05-14 16:36] LABS: ALB/GLOB RATIO 1.2 (0.9-2); CKMB/CK RATIO 2.7 (0-3.0); THYROID STIMULATING HORMONE 0.839 uIu/ml (0.300-4.500)
[2017-05-14] MEDS ORDERED: OPTIRAY 320 IV PRN (17:00)
--- NOTE | 2017-05-14 17:19 | DIAGNOSTIC IMAGING REPORT ---
(CHEST FOR PE) ANGIO WITH CT DOSE: 579.25 mGy.cm HISTORY: Chest pain dyspnea TECHNIQUE: Multiaxial CT images of the chest were performed following the intravenous administration of contrast to evaluate the pulmonary arteries. Maximal intensity projection images were also obtained. A dose lowering technique was utilized adhering to the principles of ALARA. COMPARISON STUDY: 04/24/2016 FINDINGS: Limited study due to considerable patient somatic and respiratory motion. Lung bases are regions are considered nondiagnostic for evaluated despite apparent in homogeneity of enhancement. The central pulmonary vessels enhance appropriately. There is suggestion of a right middle lobe second order filling defect best seen transaxial image 171 as well as 175. Bibasilar interstitial/atelectatic change mild stable splenomegaly compared to the prior study. Considerable degenerative change thoracic spine. No acute compression deformity. IMPRESSION: 1. Limited study due to respiratory and somatic motion. 2. Study appears to be positive for at least 2 second-order right midlung emboli and possibly several third order basilar small emboli. 3. No evidence for main or central pulmonary embolus. 4. Basilar chronic interstitial and atelectatic change 5. Mild cardia megaly. The above report was generated using voice recognition software. It may contain grammatical, syntax or spelling errors. Electronically signed by: Luis Daniel Almeida M.D. 05/14/2017 5:18 PM Dictated Date/Time: 05/14/2017 5:10 PM
[2017-05-14] MEDS ORDERED: IPRASOL4 INH (19:51)
[2017-05-14] MEDS ORDERED: POLYETHYLENE (MIRALAX) 17 GM PACK PO PRN (20:00)
[2017-05-14] MEDS ORDERED: ACETAMINOPHEN 325 MG TAB PO PRN (20:00)
[2017-05-14] MEDS: ALBUT/IPRATROP 3MG/0.5MG NEB 3 ML VIAL INH SCH (20:00)
[2017-05-14] MEDS ORDERED: MAGNESIUM HYDROXIDE SUSP 30 ML UDC PO PRN (20:00)
[2017-05-14] MEDS ORDERED: NITROGLYCERIN 0.4 MG SL PER TAB CHARGE UT PRN (20:00)
[2017-05-14] MEDS ORDERED: ONDANSETRON INJ 2 MG/ML 2 ML VIAL IV PRN (20:00)
[2017-05-14] MEDS ORDERED: ALUMINUM/MAGNESIUM/SIMETH (MAALOX MAX) 30 ML UDC PO PRN (20:00)
--- NOTE | 2017-05-14 20:26 | History and Physical ---
History & Physical Date & Time of Service: May 14, 2017 at 19:59 Chief Complaint: Can't Breathe Primary Care Physician: Brad Mason III, CRNP History of Present Illness Source: patient, spouse ( at bedside), clinic records, hospital records This is a 77 y/o male with a history of COPD, HTN, HLD, iron deficiency anemia, h/o ITP, BISI, dementia, h/o prostate cancer s/p prostatectomy, and GERD who presented to the ED on 05/14 with shortness of breath. The patient states that he has chronic shortness of breath due to his COPD, but that it became acutely worse today. The patient received DuoNebs in the ED and now reports that his SOB has returned to baseline. The patient wears 2L NC oxygen at nighttime but does not wear any during the day. He does also complain of a non-productive cough and some wheezing, although he states the wheezing is improved. The patient denies any recent long trips or surgeries. He does have a history of prostate cancer but had a prostatectomy and his last PSA in January 2017 was 0.1. The patient's does state that he is very sedentary at home, stating he spends a lot of time sitting and sleeping. The also states that the patient recently developed ITP after being placed on Plavix for a suspected TIA. The patient was treated with infusions, the last of which was completed in late April. The patient denies fevers, chills, sweats, chest pain, palpitations, claudication, nausea, vomiting, abdominal pain, dysuria, hematuria , urinary retention, paralysis, weakness, numbness and tingling. Past Medical/Surgical History Medical Problems: (1) Angina Status: Chronic (2) Asthma Status: Chronic (3) Benign hypertension Status: Chronic (4) Bilateral hip replacement Status: Resolved (5) Bronchitis Status: Resolved (6) CAD (coronary artery disease) Status: Chronic (7) Chest pain Status: Resolved (8) COPD (chronic obstructive pulmonary disease) Status: Chronic (9) Diverticulitis Status: Resolved (10) Diverticulosis Status: Chronic (11) GERD (gastroesophageal reflux disease) Status: Chronic (12) Headache Status: Resolved (13) Heart disease Status: Chronic (14) Hyperlipidemia Status: Chronic (15) Hypertension Status: Chronic (16) Pneumonia Status: Resolved (17) Splenomegaly Status: Chronic (18) Stomach problems Status: Chronic (19) Unstable angina Status: Resolved Surgical Problems: (1) H/O prostatectomy Status: Resolved (2) History of bilateral hip replacements Status: Chronic Family History FH: diabetes mellitus FH: gallbladder disease FH: heart disease Hypertension Kidney disease Kidney stones Myocardial infarction Stroke Social History Smoking Status: Never Smoker Smokeless Tobacco Use: No Alcohol Use: occasionally (about 1 drink per month) Drug Use: none Marital Status: Housing status: lives with significant other Occupational Status: retired Immunizations History of Influenza Vaccine: Yes Influenza Vaccine Date: Jul 05, 2013 History of Tetanus Vaccine?: Unknown History of Pneumococcal: Yes Pneumococcal Date: Oct 04, 2011 History of Hepatitis B Vaccine: Unknown Multi-Drug Resistant Organisms History of MDRO: No Allergies Coded Allergies: Ibuprofen (Verified Allergy, Mild, ULCERS, 04/29/17) Home Medications Scheduled Budesonide/Formoterol Fumarate (Symbicort 160/4.5 Inhaler), 1 PUFF PO BID Cholecalciferol (Vitamin D 1000 Unit), 2,000 INTER.UNIT PO DAILY Donepezil HCl (Aricept), 10 MG PO HS Ferrous Gluconate (Iron Supplement), 324 MG PO DAILY Fexofenadine HCl (Mucinex Allergy), 180 MG PO BID Ipratropium-Albuterol (Combivent Respimat), 1 PUFFS INH BID Ipratropium-Albuterol (Duoneb), 1 TREATMENT INH QID Isosorbide Mononitrate Ext Rel (Imdur Ext Rel), 60 MG PO QAM Loratadine (Claritin), 10 MG PO DAILY Metoprolol Tartrate (Lopressor) (Lopressor), 25 MG PO BID Montelukast Sod (Montelukast Sodium), 10 MG PO DAILY Multivitamin (Multivitamin), 1 TAB PO DAILY Prednisone (Prednisone), 5 MG PO DAILY Ranitidine Hcl (Zantac), 300 MG PO BID Scheduled PRN Nitroglycerin (Nitrostat), 0.4 MG UT UD PRN for Chest Pain Review of Systems Constitutional: No fever, No chills, No sweats Eyes: No worsening of vision, No eye pain, No diplopia ENT: No hearing loss, No sore throat, No trouble swallowing Respiratory: + cough, + wheezing, + shortness of breath, No sputum Cardiovascular: No chest pain, No claudication, No palpitations Abdomen: No pain, No nausea, No vomiting Musculoskeletal: No joint pain, No muscle pain, No calf pain Genitourinary - Male: No hematuria, No dysuria, No urinary retention Neurologic: No paralysis, No weakness, No numbness/tingling Integumentary: No rash, No itch, No color change Physical Exam Vital Signs Date Time Temp Pulse Resp B/P (MAP) Pulse Ox O2 Delivery O2 Flow Rate FiO2 05/14/17 18:40 69 20 139/73 96 Room Air 05/14/17 16:52 68 05/14/17 16:40 67 18 118/58 98 Room Air 05/14/17 15:48 98 Room Air 05/14/17 15:20 96 Room Air 05/14/17 15:11 36.6 67 22 158/83 95 General appearance: +Obese. Well-developed, well-nourished, no apparent distress Head: Normocephalic, atraumatic Eyes: Normal inspection, PERRL, EOMI ENT: Normal ENT inspection, hearing grossly normal, pharynx normal Neck: Supple, no JVD, trachea midline Respiratory/Chest: +Decreased breath sounds. Lungs clear to auscultation, normal breath sounds, no respiratory distress Cardiovascular: Regular rate & rhythm, no gallop, no murmur Abdomen/GI: Normal bowel sounds, non-tender, soft Extremities/Musculoskeletal: +2+ pitting edema bilaterally. Normal inspection , no calf tenderness Neurological/Psych: Alert, normal mood/affect, oriented x 3 Skin: Normal color, warm/dry, no rash Diagnostics Laboratory Results Results Past 24 Hours Test 05/14/17 15:48 05/14/17 15:54 Range/Units White Blood Count 6.16 4.8-10.8 K/uL Red Blood Count 4.48 4.7-6.1 M/uL Hemoglobin 13.0 14.0-18.0 g/dL Hematocrit 39.0 42-52 % Mean Corpuscular Volume 87.1 80-100 fL Mean Corpuscular Hemoglobin 29.0 25-34 pg Mean Corpuscular Hemoglobin Concent 33.3 32-36 g/dl Platelet Count 160 130-400 K/uL Mean Platelet Volume 9.6 7.4-10.4 fL Neutrophils (%) (Auto) 60.5 % Lymphocytes (%) (Auto) 25.8 % Monocytes (%) (Auto) 10.6 % Eosinophils (%) (Auto) 1.9 % Basophils (%) (Auto) 0.2 % Neutrophils # (Auto) 3.73 1.4-6.5 K/uL Lymphocytes # (Auto) 1.59 1.2-3.4 K/uL Monocytes # (Auto) 0.65 0.11-0.59 K/uL Eosinophils # (Auto) 0.12 0-0.5 K/uL Basophils # (Auto) 0.01 0-0.2 K/uL RDW Standard Deviation 50.8 36.4-46.3 fL RDW Coefficient of Variation 16.2 11.5-14.5 % Immature Granulocyte % (Auto) 1.0 % Immature Granulocyte # (Auto) 0.06 0.00-0.02 K/uL Prothrombin Time 10.2 9.0-12.0 SECONDS Prothromb Time International Ratio 1.0 0.9-1.1 Activated Partial Thromboplast Time 25.0 21.0-31.0 SECONDS Partial Thromboplastin Ratio 1.0 Sodium Level 145 136-145 mmol/L Potassium Level 4.1 3.5-5.1 mmol/L Chloride Level 110 98-107 mmol/L Carbon Dioxide Level 29 21-32 mmol/L Anion Gap 6.0 3-11 mmol/L Blood Urea Nitrogen 16 7-18 mg/dl Creatinine 0.92 0.60-1.40 mg/dl Est Creatinine Clear Calc Drug Dose 65.1 ml/min Estimated GFR () 92.0 Estimated GFR (Non- 79.4 BUN/Creatinine Ratio 16.9 10-20 Random Glucose 153 70-99 mg/dl Calcium Level 8.4 8.5-10.1 mg/dl Magnesium Level 2.0 1.8-2.4 mg/dl Total Bilirubin 0.4 0.2-1 mg/dl Aspartate Amino Transf (AST/SGOT) 22 15-37 U/L Alanine Aminotransferase (ALT/SGPT) 35 12-78 U/L Alkaline Phosphatase 66 45-117 U/L Total Creatine Kinase 41 39-308 U/L Creatine Kinase MB 1.1 0.5-3.6 ng/ml Creatine Kinase MB Ratio 2.7 0-3.0 Total Protein 5.9 6.4-8.2 gm/dl Albumin 3.2 3.4-5.0 gm/dl Globulin 2.7 2.5-4.0 gm/dl Albumin/Globulin Ratio 1.2 0.9-2 Thyroid Stimulating Hormone (TSH) 0.839 0.300-4.500 uIu/ml Bedside D-Dimer > 450 0-450 ng/mlFEU Bedside Troponin I < 0.030 0-0.045 ng/ml Diagnostic Radiology Reviewed the following studies and agree with interpretation as follows: Patient Name: ANGIE COHEN Unit Number: [id number] Dictated: 05/14/171623 Transcribed: 05/14/171623 MS Printed Date/Time: [~ rep prt dt]/[~ rep prt tm] [~ rep ct labl] - [~ rep ct ivnm] [facility] [place] [place] [address] Dictated: 05/14/171623 Transcribed: 05/14/171623 MS Printed Date/Time: [~ rep prt dt]/[~ rep prt tm] [~ rep ct labl] - [~ rep ct ivnm] Patient: ANGIE COHEN Address1: [address] [place] [address] Rec: [id number] Address2: Acct ID: [id number] [facility] Zip: [place] [address] Date: 1940 Sex: M Room/Bed: Ref Phy: Brad Mason III, CRNP SC: [facility] Att Phy: Report #: [id number] Pepper Phy: Brad Mason III, CRNP Test: CXR Admit Phy: Assistant Dean Of Students: RADHA Interpreting Phy: Luis Daniel Almeida M.D. Diagnosis: CAN'T BREATHE Ordering Phy: Jas Rebolledo PA-C Service Date: 05/14/17 Admit Date: 05/14/17 MNE: [id number] CONF: DICTATED BY: Luis Daniel Almeida M.D.]] CC: Jas Rebolledo PA-C Flickinger, Bridget B., M.D. Griel, Lester C. III, CRNP Endcc: [~ rep ct add3]] CHEST 2 VIEWS ROUTINE CLINICAL HISTORY: Dyspnea pain COMPARISON STUDY: 04/29/2017 FINDINGS: The bones soft tissues and hemidiaphragms are normal. The cardiomediastinal silhouette is normal. The lungs are clear. The pulmonary vasculature is normal. IMPRESSION: Negative chest. The above report was generated using voice recognition software. It may contain grammatical, syntax or spelling errors. Electronically signed by: Luis Daniel Almeida M.D. 05/14/2017 4:24 PM Dictated Date/Time: 05/14/2017 4:24 PM The status of this report is Signed. Draft = Not yet reviewed or approved by Radiologist. Signed = Reviewed and approved by Radiologist. <AttendingPhy></AttendingPhy> <FamilyPhy>Brad Mason III, CRNP</FamilyPhy> < PrimaryPhy>Brad Mason III, CRNP</PrimaryPhy> <UnitNumber>[id number]</ UnitNumber> <VisitNumber>[id number]</VisitNumber> <PatientName>ANGIE COHEN</PatientName> <DateOfBirth>1940</DateOfBirth> <Location>[facility]</ Location> <ServiceDate>05/14/17</ServiceDate> <MNE>ESINDI</MNE> <OrderingPhy> Jas Rebolledo PA-C</OrderingPhy> <OrderingPhyMNE>f rep ord dr julian</ OrderingPhyMNE> <DictatingPhyMNE>f rep dict dr julian</DictatingPhyMNE> <CCListMNE> f rep ct mne</CCListMNE> <AdmittingPhyMNE>f pt admit dr julian</AdmittingPhyMNE> < AttendingPhyMNE>f pt attend dr julian</AttendingPhyMNE> <ConsultingPhyMNE>f pt consult dr julian</ConsultingPhyMNE> <FamilyPhyMNE>f pt fam dr julian</FamilyPhyMNE> <OtherPhyMNE>f pt other dr julian</OtherPhyMNE> < PrimaryPhyMNE>f pt prim care dr julian</PrimaryPhyMNE> <ReferringPhyMNE>f pt referring dr julian</ReferringPhyMNE> Patient Name: ANGIE COHEN Unit Number: [id number] Dictated: 05/14/171709 Transcribed: 05/14/171709 MS Printed Date/Time: [~ rep prt dt]/[~ rep prt tm] [~ rep ct labl] - [~ rep ct ivnm] [facility] Radiology Department [place] [id number] Dictated: 05/14/171709 Transcribed: 05/14/171709 MS Printed Date/Time: [~ rep prt dt]/[~ rep prt tm] [~ rep ct labl] - [~ rep ct ivnm] Patient: ANGIE COHEN Address1: [address] [facility] Rec: [id number] Address2: Acct ID: [id number] [facility] Zip: [place] [address] Date: 1940 Sex: M Room/Bed: Ref Phy: Brad Mason III, CRNP SC: [facility] Att Phy: Report #: [id number] Pepper Phy: Brad Mason III, CRNP Test: CXPEA Admit Phy: Assistant Dean Of Students: PULAJM Interpreting Phy: Luis Daniel Almeida M.D. Diagnosis: CAN'T BREATHE Ordering Phy: Jas Rebolledo PA-C Service Date: 05/14/17 Admit Date: 05/14/17 MNE: [id number] CONF: DICTATED BY: Luis Daniel Almeida M.D.]] CC: Jas Rebolledo PA-C Flickinger, Bridget B., M.D. Griel, Lester C. III, CRNP Endcc: [~ rep ct add3]] (CHEST FOR PE) ANGIO WITH CT DOSE: 579.25 mGy.cm HISTORY: Chest pain dyspnea TECHNIQUE: Multiaxial CT images of the chest were performed following the intravenous administration of contrast to evaluate the pulmonary arteries. Maximal intensity projection images were also obtained. A dose lowering technique was utilized adhering to the principles of ALARA. COMPARISON STUDY: 04/24/2016 FINDINGS: Limited study due to considerable patient somatic and respiratory motion. Lung bases are regions are considered nondiagnostic for evaluated despite apparent in homogeneity of enhancement. The central pulmonary vessels enhance appropriately. There is suggestion of a right middle lobe second order filling defect best seen transaxial image 171 as well as 175. Bibasilar interstitial/atelectatic change mild stable splenomegaly compared to the prior study. Considerable degenerative change thoracic spine. No acute compression deformity. IMPRESSION: 1. Limited study due to respiratory and somatic motion. 2. Study appears to be positive for at least 2 second-order right midlung emboli and possibly several third order basilar small emboli. 3. No evidence for main or central pulmonary embolus. 4. Basilar chronic interstitial and atelectatic change 5. Mild cardia megaly. The above report was generated using voice recognition software. It may contain grammatical, syntax or spelling errors. Electronically signed by: Luis Daniel Almeida M.D. 05/14/2017 5:18 PM Dictated Date/Time: 05/14/2017 5:10 PM The status of this report is Signed. Draft = Not yet reviewed or approved by Radiologist. Signed = Reviewed and approved by Radiologist. <AttendingPhy></AttendingPhy> <FamilyPhy>Brad Mason III, CRNP</FamilyPhy> < PrimaryPhy>Brad Mason III, CRNP</PrimaryPhy> <UnitNumber>[id number]</ UnitNumber> <VisitNumber>[id number]</VisitNumber> <PatientName>ANGIE COHEN</PatientName> <DateOfBirth>1940</DateOfBirth> <Location>[facility]</ Location> <ServiceDate>05/14/17</ServiceDate> <MNE>ESINDI</MNE> <OrderingPhy> Jas Rebolledo PA-C</OrderingPhy> <OrderingPhyMNE>f rep ord dr julian</ OrderingPhyMNE> <DictatingPhyMNE>f rep dict dr julian</DictatingPhyMNE> <CCListMNE> f rep ct mne</CCListMNE> <AdmittingPhyMNE>f pt admit dr julian</AdmittingPhyMNE> < AttendingPhyMNE>f pt attend dr julian</AttendingPhyMNE> <ConsultingPhyMNE>f pt consult dr julian</ConsultingPhyMNE> <FamilyPhyMNE>f pt fam dr julian</FamilyPhyMNE> <OtherPhyMNE>f pt other dr julian</OtherPhyMNE> < PrimaryPhyMNE>f pt prim care dr julian</PrimaryPhyMNE> <ReferringPhyMNE>f pt referring dr julian</ReferringPhyMNE> EKG Reviewed EKG and agree with interpretation as follows: 68 bpm, NSR Impression Assessment and Plan 77 y/o male with a history of COPD, HTN, HLD, iron deficiency anemia, h/o ITP, BISI, dementia, h/o prostate cancer s/p prostatectomy, and GERD who presented to the ED on 05/14 with shortness of breath. The patient is afebrile, VSS on arrival to the ED. No tachycardia or hypoxia. The patient received DuoNebs in the ED which did help his SOB/wheezing. CXR shows no acute disease. Pt had a positive d-dimer. CTA showed small right sided pulmonary emboli. Cardiac enzymes negative. Labs grossly unremarkable. Acute right sided PE -Admit to telemetry for observation -Doppler ultrasound of lower extremities bilaterally -Start Eliquis 10 mg PO BID x 7 days, then 5 mg PO BID. Day team will need to check with Nurse Navigator to see if this will be affordable option for pt -Spoke to heme/onc, recent resolved ITP is not contraindication to anticoagulate now, not likely what provoked PEs either -Monitor platelets while inpatient -EKG q am and prn with chest pain -O2 by protocol. Pt wears 2L at night COPD--stable. Does not seem to be in acute exacerbation -Continue Symbicort 1 puff inh BID and Prednisone 5 mg PO qd -Pt supposed to use DuoNebs QIDR but is non-compliant. Will schedule QIDR and hold Combivent Asthma and allergies -Continue Singulair 10 mg PO qd and Claritin 10 mg PO qd HTN--stable -Continue metoprolol tartrate 25 mg PO BID H/o angina -Continue Imdur 60 mg PO qd Iron deficiency anemia--stable -Baseline hemoglobin around 13 -Hgb 13.0 on admission -Continue ferrous gluconate 324 mg PO qd BISI -Nighttime oxygen as above. Pt had CPAP before which he did not tolerate. Scheduled for repeat sleep study in the end of May, try BiPAP Dementia -Continue donepezil 10 mg PO qhs GERD -Continue Zantac 300 mg PO BID DVT prophylaxis -Eliquis Code Status -Level I, FULL RESUSCITATION STATUS Level of Care Telemetry Resuscitation Status FULL RESUSCITATION VTE Prophylaxis VTE Risk Assessment Done? Y/N: Yes Risk Level: High Given or contraindicated: Other Anticoagulation (Eliquis) Note Attending Attestation: Pt seen/examined, chart reviewed, care plan d/w KISHA Ji. I agree w/ the de la vega components of her documentation. 77yo male with h/o COPD, CAD, ITP s/p IVIG treatments followed by Dr. Sanz, dementia - presented with 3 days of worsening cough/congestion/sob. Upon ER presentation was found to have b/l wheezing and given duonebs with resolution of his pulmonary symptoms. His reported that he rarely takes nebs although his PCP has recommended he take them four times daily scheduled. A d-dimer was ordered in the ER and found to be high. This led to a CTA chest showing 2nd/3rd order PEs. He denied any recent travel, surgery, or immobilization although reports he is fairly sedentary. He has chronic edema of the LEs but not worse than usual as of late. PMH, PSH, allergies, meds, sochx, famhx, ros - reviewed VSS o2 sats normal in RA gen - NAD neck - no JVD mouth - MMM heart - RRR lungs - CTA b/l, minimally decreased BS right base abd - soft, obese ext - 1-2+ edema b/l CTA chest - b/l PEs - segmental and subsegmental; no pneumonia or edema EKG - no ST changes A/P: 1. dyspnea - resolved; was likely due to early, mild COPD exacerbation cannot exclude small PEs contributing but less likely as his symptoms resolved with nebs in ER 2. essentially incidental finding of small PEs - risk factor - immobility/ sedentary at home?? 3. recently treated ITP spoke with heme/onc - no contraindication to anticoagulation; ITP highly unlikely to cause PEs either start eliquis BID tonight check insurance tomorrow to ensure cost is reasonable check dopplers of legs COPD - schedule nebs tonight; if recurrent symptoms or he flares then increase his chronic prednisone for short course +/- narrow spectrum PO abx anticipate overnight stay only on observation status Deborah MERCADO MD Additional Copies To Brad Mason III, LAVERN
[2017-05-14] MEDS ORDERED: SYMIN160 PO (20:39)
[2017-05-14] MEDS ORDERED: IPRA1AER2 INH (20:39)
[2017-05-14] MEDS ORDERED: DONEPEZIL HCL 5 MG TAB PO SCH (21:00)
--- NOTE | 2017-05-14 21:35 | DIAGNOSTIC IMAGING REPORT ---
VENOUS DOPPLER LW EXT BILAT HISTORY: Pain. Edema. pulmonary embolism, assess for DVTs COMPARISON STUDY: None. FINDINGS: There is normal compressibility, flow, and augmentation within the bilateral lower extremity deep venous systems. IMPRESSION: No DVT within the right or left lower extremity. The above report was generated using voice recognition software. It may contain grammatical, syntax or spelling errors. Electronically signed by: Luis Daniel Almeida M.D. 05/14/2017 9:33 PM Dictated Date/Time: 05/14/2017 9:33 PM
[2017-05-14] MEDS ORDERED: PLMINS PO (21:43)
[2017-05-14] MEDS ORDERED: SNG10 PO (21:43)
[2017-05-14 22:00] VITALS: BP 169/82; PULSE 59; TEMP 36.5; O2SAT 94; Ht 152.4 cm; Wt 89.3 kg
[2017-05-14] MEDS ORDERED: FEXO3TAB PO (22:14)
[2017-05-14] MEDS ORDERED: CLR10 PO (22:14)
[2017-05-14] MEDS ORDERED: PRED10TA PO (22:14)
[2017-05-14] MEDS ORDERED: IV FLUIDS COMPLETED PRN (22:15)
[2017-05-14] MEDS: APIXABAN 2.5 MG TAB PO SCH (22:16)
[2017-05-14] MEDS: METOPROLOL TARTRATE 25 MG TAB PO SCH (22:17)
[2017-05-14] MEDS: RANITIDINE HCL 150 MG TAB PO SCH (22:17)
[2017-05-14] MEDS: BUDESONIDE/FORMOTEROL FUMARATE 160/4.5 60 PUFFS/INHALER INH SCH (22:18)
[2017-05-14] MEDS: FEXOFENADINE HCL 180 MG TAB PO SCH (22:18)
--- NOTE | 2017-05-14 22:32 | EMERGENCY ROOM VISIT NOTE ---
ED Visit Note First contact with patient: 15:25 I have personally seen and evaluated the patient with the PA. I agree with the diagnosis and management decisions and have been personally involved in the case. Patient was evaluated and seemed to be doing well. He was informed of the CT findings of PE. Patient will be evaluated by the hospitalist service for further management. Please see Jas Rebolledo PA-C's notes for further details of the history, physical and visit.
[2017-05-14] MEDS ORDERED: METO50TA16 PO (22:48)
[2017-05-14] MEDS ORDERED: MULT-506 PO (22:58)
[2017-05-14 23:13] VITALS: BP 154/69; PULSE 68; TEMP 36.7; O2SAT 94
[2017-05-14 23:31] LABS: URINE APPEARANCE CLEAR (CLEAR); URINE BILIRUBIN NEG (NEG); URINE COLOR YELLOW; URINE NITRITE NEG (NEG); URINE SPECIFIC GRAVITY > 1.045 (1.000-1.030); UROBILINOGEN NEG (NEG); ZZUR CULT IF INDIC CLEAN CATCH NO
[2017-05-14 23:37] LABS: MANUAL MICROSCOPIC REQUIRED? NO; REVIEW REQ? NO
[2017-05-15 03:16] VITALS: BP 152/85; PULSE 61; TEMP 36.7; O2SAT 93
[2017-05-15 05:59] LABS: HEMATOCRIT 38.6 % (42-52); MEAN CELL VOLUME 87.1 fL (80-100); MEAN CORPUSCULAR HEMOGLOBIN 29.8 pg (25-34); MEAN CORPUSCULAR HGB CONC 34.2 g/dl (32-36); MEAN PLATELET VOLUME 9.4 fL (7.4-10.4); PLATELET COUNT 136 K/uL (130-400); RED BLOOD COUNT 4.43 M/uL (4.7-6.1); WHITE BLOOD COUNT 5.13 K/uL (4.8-10.8)
[2017-05-15 06:18] LABS: BUN/CREATININE RATIO 16.9 (10-20); CALCIUM 8.5 mg/dl (8.5-10.1); CREATININE 0.8 mg/dl (0.60-1.40); POTASSIUM 3.8 mmol/L (3.5-5.1)
[2017-05-15 07:10] VITALS: PULSE 80; O2SAT 97
[2017-05-15] MEDS: ALBUT/IPRATROP 3MG/0.5MG NEB 3 ML VIAL INH SCH ×2 (07:10→11:20)
[2017-05-15 07:45] VITALS: BP 151/76; PULSE 54; TEMP 36.5; O2SAT 96
[2017-05-15] MEDS: RANITIDINE HCL 150 MG TAB PO SCH (08:55)
[2017-05-15] MEDS: METOPROLOL TARTRATE 25 MG TAB PO SCH (08:55)
[2017-05-15] MEDS: FEXOFENADINE HCL 180 MG TAB PO SCH (08:56)
[2017-05-15] MEDS: APIXABAN 2.5 MG TAB PO SCH (08:56)
[2017-05-15] MEDS: BUDESONIDE/FORMOTEROL FUMARATE 160/4.5 60 PUFFS/INHALER INH SCH (08:58)
[2017-05-15] MEDS ORDERED: MULTIVITAMIN TAB PO SCH (09:00)
[2017-05-15] MEDS ORDERED: ISOSORBIDE MONONITRATE 60 MG TABCR PO SCH (09:00)
[2017-05-15] MEDS ORDERED: LORATADINE 10 MG TAB PO SCH (09:00)
[2017-05-15] MEDS ORDERED: FERROUS GLUCONATE 324 MG TAB PO SCH (09:00)
[2017-05-15] MEDS ORDERED: MONTELUKAST SOD 10 MG TAB PO SCH (09:00)
[2017-05-15] MEDS ORDERED: CHOLECALCIFEROL 1000 INTER.UNIT TAB PO SCH (09:00)
[2017-05-15 09:04] VITALS: PULSE 78
[2017-05-15] MEDS ORDERED: APIX1TAB3 PO ×2 (10:06)
--- NOTE | 2017-05-15 10:11 | Discharge Instructions ---
Discharge Instructions Date of Service May 15, 2017. Admission Reason for Admission: Pulmonary Emboli Discharge Discharge Diagnosis / Problem: (1) Pulmonary emboli VTE Date & Time Date of VTE Diagnosis: May 14, 2017 Time of VTE Diagnosis: 16:49 Discharge Goals Goal(s): Improve function, Improve disease control Activity Recommendations Activity Limitations: resume your previous activity Lifting Limitations: none Exercise/Sports Limitations: as tolerated May Resume Sexual Activity: when tolerated Shower/Bathe: no limitations Driving or Machine Use: no limitations . Instructions / Follow-Up Instructions / Follow-Up Medications: continue all prior medications - ELIQUIS: take 10mg twice a day for one week then drop down to 5mg twice a day , take this indefinitely you will be on the Eliquis until instructed to stop per Dr. Sanz or your primary care physician FOLLOW UP - Brad Mason in one week, call office for hospital follow up appointment for new diagnosis of PE - Dr. Sanz in 1-2 months for management of pulmonary emboli, Dr. Sanz will determine how long you should be on Eliquis for unprovoked blood clots, typical duration is 6-12 months Medication Instructions: Your condition is typically treated with an anticoagulant. Anticoagulants will thin your blood to help prevent new clots. * You should take her medication exactly as directed. * Never skip a dose. * Never take a double dose. If you miss a dose, take it as soon as you remember. Call your Primary Care doctor if you experience any of the following: * Swelling or Pain in your leg * Sudden, continuous pain deep in a muscle * Pain that worsens when you are active or when you stand still for a long time * Chest Pain * Sudden Shortness of Breath * Rapid or pounding heart beat * Fainting * Dizziness * Cough with blood or bloody sputum * Sweating more than normal * Bruises * Heavy or uncontrolled bleeding * Blood in your urine, stool or vomit * Black or tarry stools Caring for Your Self at Home: * Avoid sitting, standing or lying down for long periods without moving your legs and feet * When traveling by car, stop to get out and move around at least once every 3 hours * On long airplane, train or bus rides, get up and move around when possible * If you can't get up, wiggle your toes and tighten your calves to keep your blood moving Follow Up: It is important for you to keep your follow up appointments with your medical provider. Current Hospital Diet Patient's current hospital diet: AHA Diet (Heart Healthy) Discharge Diet Recommended Diet: AHA Diet (Heart Healthy) Pending Studies Studies pending at discharge: no Medical Emergencies . Who to Call and When: Medical Emergencies: If at any time you feel your situation is an emergency, please call 911 immediately. . Non-Emergent Contact Non-Emergency issues call your: Primary Care Provider Call Non-Emergent contact if: you have any medication questions . . "Provider Documentation" section prepared by Panfilo De La Torre. . VTE Core Measure Inpt VTE Proph given/why not?: Other Anticoagulation (Eliquis) [place] Drug Monitoring Program Search Results: no issues identified
[2017-05-15 10:46] VITALS: BP 151/76; PULSE 78; TEMP 36.5; O2SAT 96
--- NOTE | 2017-05-16 08:55 | Discharge Summary ---
Discharge Summary Date of Service May 15, 2017. Discharge Summary Admission Date: May 14, 2017 at 19:58 Discharge Date: May 15, 2017 Discharge Disposition: Home Principal Diagnosis: PE, unprovoked, submassive Problems/Secondary Diagnoses: COPD Asthma HTN BISI Immunizations: Have You Had Influenza Vaccine: Yes Influenza Vaccine Date: Jul 05, 2013 History of Tetanus Vaccine?: Unknown History of Pneumococcal: Yes Pneumococcal Date: Oct 04, 2011 History of Hepatitis B Vaccine: Unknown Procedures: none Consultations: none Medication Reconciliation New Medications: Apixaban (Eliquis) 5 Mg Tab 5 MG PO BID for 30 Days, #60 TAB 3 Refills Apixaban (Eliquis) 5 Mg Tab 10 MG PO BID for 7 Days, #28 TAB Continued Medications: Budesonide/Formoterol Fumarate (Symbicort 160/4.5 Inhaler) 120 Puffs/ Aero 1 PUFF PO BID Cholecalciferol (Vitamin D 1000 Unit) 1,000 Unit Cap 2000 INTER.UNIT PO DAILY Donepezil HCl (Aricept) 5 Mg Tab 10 MG PO HS for 90 Days, TAB 3 Refills Ferrous Gluconate (Iron Supplement) 324 Mg Tab 324 MG PO DAILY Fexofenadine HCl (Mucinex Allergy) 180 Mg Tab 180 MG PO BID Ipratropium-Albuterol (Combivent Respimat) 1 Aer Aer 1 PUFFS INH BID Ipratropium-Albuterol (Duoneb) 3 Ml Nebu 1 TREATMENT INH QID, INHA Isosorbide Mononitrate Ext Rel (Imdur Ext Rel) 60 Mg Ertab 60 MG PO QAM Loratadine (Claritin) 10 Mg Tab 10 MG PO DAILY, TAB Metoprolol Tartrate (Lopressor) (Lopressor) 50 Mg Tab 25 MG PO BID Montelukast Sod (Montelukast Sodium) 10 Mg Tab 10 MG PO DAILY, #30 Multivitamin (Multivitamin) Tab 1 TAB PO DAILY CENTRUM Nitroglycerin (Nitrostat) 0.4 Mg Sub 0.4 MG UT UD PRN for Chest Pain Prednisone (Prednisone) 10 Mg Tab 5 MG PO DAILY, TAB Ranitidine Hcl (Zantac) 150 Mg Tab 300 MG PO BID Discharge Exam Patient feeling well since admission, no chest pain, no dyspnea, no further wheezing after nebulizer treatment in the ED. Discussed plan for Eliquis for anticoagulation and he can afford the $21 co pay. All questions answered. Review of Systems: Constitutional: No fever, No chills, No sweats, No weight loss, No weakness , No fatigue, No problem reported Eyes: No worsening of vision, No eye pain, No redness, No discharge, No diplopia, No problem reported ENT: No hearing loss, No unusual epistaxis, No nasal symptoms, No sore throat, No tinnitus, No dental problems, No trouble swallowing, No problem reported Respiratory: No cough, No sputum, No wheezing, No shortness of breath, No dyspnea on exertion, No dyspnea at rest, No hemoptysis, No problem reported Cardiovascular: No chest pain, No orthopnea, No PND, No edema, No claudication, No palpitations, No problem reported Abdomen: No pain, No nausea, No vomiting, No diarrhea, No constipation, No GI bleeding, No problem reported Musculoskeletal: No joint pain, No muscle pain, No swelling, No calf pain, No problem reported Genitourinary - Male: No hematuria, No dysuria, No urinary frequency, No urinary urgency Neurologic: No memory loss, No paralysis, No weakness, No numbness/tingling , No vertigo, No balance problems, No problem reported Psychiatric: No depression symptoms, No anhedonism, No anxiety, No insomnia , No substance abuse, No problem reported Endocrine: No fatigue, No excessive thirst, No excessive urination, No problem reported Hematologic / Lymphatic: No abnormal bleeding/bruising, No clotting problems , No swollen lymph nodes, No night sweats, No problem reported Integumentary: No rash, No itch, No new/changing skin lesions, No color change, No bleeding, No problem reported Physical Exam: General Appearance: WD/WN, no apparent distress Eyes: normal inspection, EOMI, sclerae normal ENT: normal ENT inspection, hearing grossly normal, pharynx normal Neck: supple, no adenopathy, no JVD, trachea midline Respiratory/Chest: chest non-tender, lungs clear, normal breath sounds, no respiratory distress, no accessory muscle use Cardiovascular: regular rate, rhythm, no edema, no gallop, no JVD, no murmur , normal peripheral pulses Abdomen / GI: normal bowel sounds, non tender, soft, no organomegaly Extremities: normal inspection, no calf tenderness, normal capillary refill , no pedal edema, normal range of motion, pelvis stable Neurologic/Psychiatric: 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 The patient is afebrile, VSS on arrival to the ED. No tachycardia or hypoxia. The patient received DuoNebs in the ED which did help his SOB/wheezing. CXR shows no acute disease. Pt had a positive d-dimer. CTA showed small right sided pulmonary emboli. Cardiac enzymes negative. Labs grossly unremarkable. Acute right sided PE - vitals stable, no hypoxia, no chest pain, no dyspnea - no DVT on dopplers - Eliquis 10mg BID x 7 days and then 5mg BID indefinitely - copay is $21 a month - follow up with PCP and then follow up with Dr. Sanz with hematology, had been following for ITP COPD--stable. Does not seem to be in acute exacerbation -Continue Symbicort 1 puff inh BID and Prednisone 5 mg PO qd Asthma and allergies -Continue Singulair 10 mg PO qd and Claritin 10 mg PO qd HTN--stable -Continue metoprolol tartrate 25 mg PO BID H/o angina -Continue Imdur 60 mg PO qd Iron deficiency anemia--stable -Baseline hemoglobin around 13 -Hgb 13.0 on admission -Continue ferrous gluconate 324 mg PO qd BISI -Nighttime oxygen as above. Pt had CPAP before which he did not tolerate. Scheduled for repeat sleep study in the end of May, february try BiPAP Dementia -Continue donepezil 10 mg PO qhs GERD -Continue Zantac 300 mg PO BID DVT prophylaxis -Eliquis Code Status -Level I, FULL RESUSCITATION STATUS Total Time Spent: Less than 30 minutes This includes examination of the patient, discharge planning, medication reconciliation, and communication with other providers. Discharge Instructions Please refer to the electronic Patient Visit Report (Discharge Instructions) for additional information. Follow-Up Bard Mason in [address] Sanz in 1-2 months for recommendations on anticoagulation duration Additional Copies To Brad Mason III, CRNP; Aaron Sanz D.O.
== END 2017-05-15 11:28 | disposition home or self-care (01) ==
LOC: C.EDB 15:09 → C.2T 19:58 → ENRESERV 20:25
PROVIDERS: ADMIT Internal Medicine; ATTEND Internal Medicine
DX: I26.99 Other pulmonary embolism without acute cor pulmonale (principal); F03.90 Unspecified dementia, unspecified severity, without behavioral disturbance, psychotic disturbance, mood disturbance, and anxiety; D50.9 Iron deficiency anemia, unspecified; J44.9 Chronic obstructive pulmonary disease, unspecified; I25.110 Atherosclerotic heart disease of native coronary artery with unstable angina pectoris; I10 Essential (primary) hypertension; E78.5 Hyperlipidemia, unspecified; G47.33 Obstructive sleep apnea (adult) (pediatric); K21.9 Gastro-esophageal reflux disease without esophagitis; R16.1 Splenomegaly, not elsewhere classified; Z87.01 Personal history of pneumonia (recurrent); Z82.49 Family history of ischemic heart disease and other diseases of the circulatory system; Z79.02 Long term (current) use of antithrombotics/antiplatelets; Z79.899 Other long term (current) drug therapy

== ENCOUNTER → 2017-06-04 | Outpatient (CLI) | payer BC ==
[~2017-06-04] MED LIST changes: +APIX1TAB3 PO; -CIPR-255 PO; +CLR10 PO; +FEXO3TAB PO; +IPRA1AER2 INH; +IPRASOL4 INH; +METO50TA16 PO; -METR-163 PO; +MULT-506 PO; -PANT40TA PO; +PRED10TA PO; +SNG10 PO; +SYMIN160 PO; -TRAM-10 PO
--- NOTE | 2017-06-05 08:02 | PAP/PSG TECHNICIAN REPORT ---
[facility] Power Engineer Polysomnogram Report Study name: None Report date: 06/05/2017 Study date: 06/04/2017 Referring Physician: Kayli Lucero PA-C Name: ANGIE COHEN Interpreting Physician: Arthur Goodrich D.O. Date of : 1940 Power Engineer: Unruly Hernandez RPSGT. Sex: Male Age: 77 StudyType: PSG PAP Weight: 195 lbs 17 inches Height: 77 years, Height 5' 1" Neck Circum: BMI: 36.84 Medications: ACETAMINOPHEN-CODEINE, BUDESONIDE 0.5 MG, CLARITIN 10 MG, COMBIVENT RESPIMAT 20-100 MCG/ACT, DONEPEZIL HCL 10 MG, ISOSORBIDE MONOTITRATE ER 60 MG, METOPROLOL TARTRATE 50 MG, MONTELUKAST SODIUM 10 MG, MUCINEX, NITROSTAT 0.4 MG, PREDNISONE 10 MG, RANITIDINE HCL 300 MG, TRAMADOL HCL 50 MG, VENTOLIN HFA 108 90 BASE, VIT D Patient History PATIENT RECENTLY HAD A SLEEP STUDY DONE IN MARCH AND WAS POSITIVE FOR MODERATE BISI WITH AN AHI OF 18/HR. HE HAS PREVIOUSLY FAILED CPAP IN THE PAST AND IS WILLING TO GIVE IT ANOTHER TRY. HE IS HERE TODAY FOR A CPAP TITRATION. ESS = 6 RM 6 Parameters Monitored NPSG: E1-M2, E2-M1, Fp1-M2, Fp2-M1, F3-M2, F4-M2, F4-M1, C3-M2, C4-M2, C4-M1, O1-M2, O2-M2, O2-M1, T3-M2, T4-M1, P3-M2, P4-M1, CHIN1, CHIN2, HR, EKG, Legs, PFLOW, SNOR, FLOW, CFLOW, Tidal Volume, THOR, ABDO, SpO2, PLTH, CPRESS, ETCO2 Wave, ETCO2, pH Sleep Architecture Sleep Stages Time at Lights Off 10:35:07 PM STAGES Time (min.) TST (%) Time at Lights On 5:05:37 AM Wake 160.5 -- Total Recording Time (TRT) 391.00 min. N1 27.0 12 Total Sleep Period (TSP) 366.5 min. N2 157.5 68 Total Sleep Time (TST) 230.0min. N3 0.0 0 Awake Time 161.0 min. REM 45.5 20 Wake after Sleep Onset 142.5 min. Sleep Efficiency (SE) 59 % Sleep Onset Latency (OMAR) 18.0 min. Number of Stage 1 Shifts None Awakenings 18 Stage Changes 59 Number of REM periods 5 REM 45.5 20 REM Latency 97.5 min. NREM 184.5 80 Body Position Analysis Supine Right Left Side Prone Vertical Total Sleep Time (min.) 4.9 44.5 185.5 230.00 0.0 0.0 Total Sleep Time (%) 0% 19% 81% 100 0% N/A% Total Sleep Time REM (min.) 0.0 0.0 45.5 None 0.0 0.0 Total Sleep Time NREM (min.) 0.0 44.5 140.0 None 0.0 0.0 Intermittent Wake (min.) 4.9 24.9 130.7 None 0.0 0.0 Total Sleep Period (%) 1% None None None None None Arousals Myoclonus (PLM) * Events Count Index Events Count Index Spontaneous 20 5 Events Awake (PLMW) 100 37.4 Respiratory 5 1.3 Events Asleep w/ Arousal (PLMA) 3 0.8 PLM 3 1 Events Asleep w/o Arousal (PLMS) 192 50.1 Snoring 9 2 Total Asleep 195 50.9 Total 36 9 Total 295 45 Respiratory Analysis * CA OA MA CH H RERA Total Count 2 7 0 0 38 7 47 Index 0.5 1.8 0.0 0 9.9 2 14.1 Mean Duration 13.6 12.3 0.0 0.00 21.4 14.9 19.1 Longest Duration 16.3 15.4 0.0 0.00 0.0 19.2 39.2 Respiratory Event Summary Total Supine ~Supine Right Left Prone REM NREM Apneas Count 9 N/A 9 3 6 N/A 1 8 Index 2.3 N/A 2 4.0 1.9 N/A 1 3 Hypopneas (4% Desat) Count 38 N/A 38 7 31 N/A 9 29 Index 9.9 N/A 10 9.4 10.0 N/A 11.9 9.4 Apneas & All Hypopneas Count 47 N/A 47 10 37 N/A 10 37 Index 12.3 N/A 12 13 12 N/A 13.2 12.0 Respiratory Events (Psychologist Personnel+All Hyp+RERA) Count 47 N/A 54 15 39 N/A 10 37 Index 14.1 N/A 14 20.2 12.6 N/A 13.2 14.3 Respiratory Related Arousal Count 5 N/A 5 3 2 N/A 0 5 Index 1.3 N/A 1 4 1 N/A 0 2 Snoring Analysis Supine Right Left Prone REM NREM Total Snore duration 8.5 min Snores count N/A 28 466 N/A 63 431 494 Snore mean duration 1.0 Sec Snores index N/A 38 151 N/A 83.1 140.2 128.9 TST with snoring (%) 3.7% Desaturation Event Summary: Minimum %SpO2 Event Count Mean/Min/Max Duration(sec.) Desaturation Index % Time In Bed > 90 43 31.2 / 14.8 / 54.7 9.8 80.3 86 - 90 5 43.1 / 18.8 / 85.5 5.0 18.2 81 - 85 0 N/A 0.0 1.5 76 - 80 0 N/A 0.0 0.0 71 - 75 0 N/A 0.0 0.0 66 - 70 0 N/A 0.0 0.0 61 - 65 0 N/A 0.0 0.0 56 - 60 0 N/A 0.0 0.0 51 - 55 0 N/A 0.0 0.0 < 50 0 N/A 0.0 0.0 Total REM NREM Awake <50% 0.0 min. 0.0 min. 0.0 min. 0.0 min. 51 - 60% 0.0 min. 0.0 min. 0.0 min. 0.0 min. 61 - 70% 0.0 min. 0.0 min. 0.0 min. 0.0 min. 71 - 80% 0.0 min. 0.0 min. 0.0 min. 0.0 min. 81 - 90% 64.9 min. 14.0 min. 39.4 min. 11.5 min. 91 - 100% 263.9 min. 31.5 min. 145.1 min. 87.4 min. Average 92 91 91 92 Minimum SpO2 82 82 84 84 Desaturation Event Index 7.1 11.9 11.1 1.1 # Desat. Events below 89% 14 7 7 N/A Time(%) with Saturation below 89% 3.1 2.3 0.7 0.2 Time(min.) with Saturation below 89% 10.2 7.4 2.2 0.7 Time (mins) REM (mins) NREM (mins) % of TST SpO2 Below 90% 43 9 N34 9.4 SpO2 Below 88% 10 0 0 3 Heart Rate Analysis Min (bpm) Max (bpm) Average (bpm) Awake 56 85 66 NREM 53 73 60 REM 51 79 58 Overall 51 79 60 Supplemental O2 Values Minimum O2 level: None Value Start Time End Time Power Engineer Comments Mr. Cohen slept in the right, left, and supine positions. PAC's noted. Leg movements noted. No bruxism noted. CPAP was initiated at +4 CMH2O and up-titrated to an level of +9 CMH2O. At this pressure, patient became uncomfortable with CPAP, so I switched to BIPAP starting at 9/5. I increased BIPAP to 16/9 which nearly eliminated all respiratory events and snoring. A Bansal and [employer] size small full face mask was used during titration Mr. Cohen awoke to use the restroom 1 time during the night. Mr. Cohen stated I did not sleep as well as I do when I am in my own bed. The patient asked me where he was and how he got here a couple different times throughout the test. The final report will be interpreted and signed by a sleep physician. The completed physician report will then be placed in the patient medical record. Therapy Event: Therapy (cm H20) 4 5 6 7 9 9/5 10/6 Total Time at Pressure (min.) 23.5 25.6 14.8 51.5 101.4 30.7 6.4 TST at Pressure (min.) 5.5 18.1 14.8 37.5 13.2 12.9 6.4 # Periods 1 1 1 1 1 1 1 Sleep Onset (min.) 18.0 0.0 0.0 0.0 0.0 11.8 0.0 REM Onset (min.) N/A N/A N/A N/A 0.2 N/A N/A Sleep Efficiency % 23 70 100 72 13 42 100 Wakefulness (%) 76.6 29.3 0.0 27.2 87.0 57.9 0.0 Wakefulness (min.) 18.0 7.5 0.0 14.0 88.2 17.8 0.0 NREM 1 (%) 8.5 7.8 0.0 10.7 2.0 31.0 0.0 NREM 1 (min.) 2.0 2.0 0.0 5.5 2.0 9.5 0.0 NREM 2 (%) 14.9 62.9 100.0 62.1 7.1 11.1 100.0 NREM 2 (min.) 3.5 16.1 14.8 32.0 7.2 3.4 6.4 NREM 3 (%) 0.0 0.0 0.0 0.0 0.0 0.0 0.0 NREM 3 (min.) 0.0 0.0 0.0 0.0 0.0 0.0 0.0 REM (%) 0.0 0.0 0.0 0.0 3.9 0.0 0.0 REM (min.) 0.0 0.0 0.0 0.0 4.0 0.0 0.0 # Arousals 3 1 2 6 4 8 0 Arousal Index 32.8 3.3 8.1 9.6 18.2 37.2 0.0 # Snore 3 16 6 55 52 26 38 Snore Index 32.8 53.1 24.4 88.1 236.5 120.9 357.3 AHI 0.0 23.2 8.1 6.4 22.7 14.0 28.2 AHI Supine N/A N/A N/A N/A N/A N/A N/A AHI Non-Supine 0.0 23.2 8.1 6.4 22.7 14.0 28.2 NREM AHI 0.0 23.2 8.1 6.4 19.6 14.0 28.2 REM AHI N/A N/A N/A N/A 30.0 N/A N/A RDI 32.8 23.2 16.3 8.0 22.7 14.0 28.2 # Obstructive 0 3 0 0 0 1 1 # Central Ap 0 0 0 0 0 0 0 # Mixed 0 0 0 0 0 0 0 # Hypopneas 0 4 2 4 5 2 2 RERAS 3 0 2 1 0 0 0 Total Respiratory Events 3 7 4 5 5 3 3 Time Below SpO2 89.00% (min.) 0.0 0.0 0.0 0.5 4.1 0.5 0.0 Mean NREM SpO2 (%) 92 92 91 91 90 92 91 Mean REM SpO2 (%) N/A N/A N/A N/A 87 N/A N/A Mean Sleep SpO2 (%) 92 92 91 91 89 92 91 Min NREM SpO2 (%) 89 89 89 88 84 88 89 Min REM SpO2 (%) N/A N/A N/A N/A 84 N/A N/A Position Supine (min.) 0.0 0.0 0.0 0.0 0.0 0.0 0.0 Position Non-supine (min.) 5.5 18.1 14.8 37.5 13.2 12.9 6.4 LM Index Sleep 32.8 19.9 69.1 59.2 31.8 74.4 0.0 LM Index NREM 32.8 19.9 69.1 59.2 32.6 74.4 0.0 LM Index REM N/A N/A N/A N/A 30.0 N/A N/A Mean Heart Rate (bpm) 63 61 60 61 62 61 59 Min Heart Rate (bpm) 59 56 55 55 53 56 55 Therapy (cm H20) 08/14 12/7 13/8 14/8 15/8 16/8 16/9 Total Time at Pressure (min.) 29.7 6.3 6.4 45.4 12.2 11.0 25.8 TST at Pressure (min.) 27.2 6.3 5.4 41.9 12.2 9.0 19.8 # Periods 1 1 1 1 1 1 1 Sleep Onset (min.) 0.0 0.0 0.0 0.0 0.0 0.0 0.0 REM Onset (min.) N/A 0.5 0.0 0.0 N/A N/A N/A Sleep Efficiency % 91 100 84 92 100 81 76 Wakefulness (%) 8.4 0.0 15.6 7.7 0.0 18.2 23.3 Wakefulness (min.) 2.5 0.0 1.0 3.5 0.0 2.0 6.0 NREM 1 (%) 5.0 0.0 7.8 1.1 0.0 31.9 0.0 NREM 1 (min.) 1.5 0.0 0.5 0.5 0.0 3.5 0.0 NREM 2 (%) 86.5 7.9 0.0 23.3 100.0 49.9 76.7 NREM 2 (min.) 25.7 0.5 0.0 10.6 12.2 5.5 19.8 NREM 3 (%) 0.0 0.0 0.0 0.0 0.0 0.0 0.0 NREM 3 (min.) 0.0 0.0 0.0 0.0 0.0 0.0 0.0 REM (%) 0.0 92.1 76.6 67.9 0.0 0.0 0.0 REM (min.) 0.0 5.8 4.9 30.8 0.0 0.0 0.0 # Arousals 2 0 1 2 1 3 3 Arousal Index 4.4 0.0 11.1 2.9 4.9 20.0 9.1 # Snore 90 29 27 58 39 7 48 Snore Index 198.4 276.9 299.1 83.1 192.4 46.7 145.6 AHI 11.0 47.7 33.2 7.2 19.7 6.7 0.0 AHI Supine N/A N/A N/A N/A N/A N/A N/A AHI Non-Supine 11.0 47.7 33.2 7.2 19.7 6.7 0.0 NREM AHI 11.0 0.0 0.0 27.1 19.7 6.7 0.0 REM AHI N/A 51.9 36.6 0.0 N/A N/A N/A RDI 13.2 47.7 33.2 7.2 19.7 6.7 0.0 # Obstructive 0 1 0 0 1 0 0 # Central Ap 0 0 0 1 0 1 0 # Mixed 0 0 0 0 0 0 0 # Hypopneas 5 4 3 4 3 0 0 RERAS 1 0 0 0 0 0 0 Total Respiratory Events 6 5 3 5 4 1 0 Time Below SpO2 89.00% (min.) 0.1 2.0 2.5 0.0 0.0 0.0 0.0 Mean NREM SpO2 (%) 92 91 93 91 92 92 92 Mean REM SpO2 (%) N/A 90 89 92 N/A N/A N/A Mean Sleep SpO2 (%) 92 90 89 92 92 92 92 Min NREM SpO2 (%) 88 90 93 89 89 90 90 Min REM SpO2 (%) N/A 82 83 90 N/A N/A N/A Position Supine (min.) 0.0 0.0 0.0 0.0 0.0 0.0 0.0 Position Non-supine (min.) 27.2 6.3 5.4 41.9 12.2 9.0 19.8 LM Index Sleep 50.7 28.6 33.2 15.8 93.7 66.8 121.3 LM Index NREM 50.7 0.0 240.0 16.3 93.7 66.8 121.3 LM Index REM N/A 31.1 12.2 15.6 N/A N/A N/A Mean Heart Rate (bpm) 58 57 59 58 59 60 59 Min Heart Rate (bpm) 53 51 52 52 53 54 56
--- NOTE | 2017-06-08 18:01 | Sleep Study ---
Sleep Study Report Date of Service: 06/04/2017 Sleep Study Report Clinical data: The patient is a 77-year-old male who had a history of sleep apnea diagnosed in 2012. He was given a trial of nasal CPAP but did not do well. He recently had a diagnostic study done again on April 04, 2017. This showed obstructive sleep apnea with an apnea-hypopnea index of 18.3. [facility] of nasal CPAP or BiPAP. He has a BMI of 36.84. Sleep architecture: The total sleep period is 366.5 minutes. The total sleep time was 230.0 minutes. The sleep efficiency was significantly reduced to 59 percent. The sleep latency was 18 minutes. Wake after sleep onset was 142.5 minutes. REM latency was 97.5 minutes. Sleep consisted of stage N1 12 percent, stage N2 68 percent, stage N3 0 percent , and stage REM 20 percent. Arousal data: The patient had a total of 36 arousals including 20 spontaneous arousals, 5 respiratory arousals, 3 PLM arousals, and 9 snoring arousals. The arousal index was 9. PLM data: The patient had a total of 195 periodic limb movements of sleep for an index of 50.9. There were 3 arousals for a PLM arousal index of only 0.8. EKG: The underlying cardiac rhythm was normal sinus. There were rare PACs. The cardiac rates ranged from 51 to 79 beats per minute. Respiratory data: The patient's nocturnal events were treated 1st with nasal CPAP. He was then switched to BiPAP. Patient had a total of 47 respiratory events including 2 central apneas, 7 obstructive apneas, and 38 hypopneas. Hypopneas were scored according to the 4 percent desaturation rule. The longest apnea was 16.3 seconds. The mean duration of the hypopneas was 21.4 seconds. The apnea- hypopnea index for the night was 12.3 events per hour. However at the final pressure of BiPAP 16/9 the patient had no respiratory events and his apnea- hypopnea index was 0. Oximetry data: The average saturation was 92 percent. The minimum saturation was 82 percent. There was a total of 10.2 minutes with saturations less than 89 percent. Cord Maker comments: The patient slept on the right, left, and supine positions. PACs noted. Leg movements noted. No bruxism noted. CPAP was initiated at 4 centimeters and up titrated to a level of 9 centimeters. At this pressure the patient became uncomfortable with CPAP. He was then switched to BiPAP starting at 9/5. The BiPAP was increased to a final pressure of 16/9 which eliminated all respiratory events and snoring. The patient awaken once to use the restroom during the nighttime. Impressions: 1. Obstructive sleep apnea-resolved with BiPAP 16/9 2. Periodic limb movement disorder Comments: The patient did not do well with nasal CPAP. This had been found in the past as well. He was ultimately switched to BiPAP. He did much better with BiPAP. His sleep was much more consolidated. At the final pressure of 16/9 he did not have any respiratory events. Patient used a Bans[employer] and [employer] size small fullface mask during the titration. Recommendations: 1. It is suggested that the patient be started on BiPAP 16/9. 2. It is suggested that he be ordered a B[employer] full face mask size small. 3. Weight reduction is advised in light of the patient's elevation of body mass index of 36.84. 4. If possible the patient should avoid sleeping in the supine position. It is notable that he spent very little time supine during this study. 5. Clinical correlation is required to determine if the patient may be a candidate for treatment for the underlying limb movement disorder. Typically the sleep apnea is treated 1st. Copies To 1: Arthur Goodrich DO; Brad Mason III, CRNP
== END | disposition home or self-care (01) ==
LOC: C.NEUR 20:00
PROVIDERS: ATTEND Internal Medicine Pulmonary Disease
DX: G47.33 Obstructive sleep apnea (adult) (pediatric) (principal)

== ENCOUNTER → 2017-06-05 | Outpatient (CLI) | payer BC ==
[2017-06-05 09:55] LABS: BASO % 0.3 %; BASO ABS # 0.02 K/uL (0-0.2); COMPLETE YES; EOS % 2.9 %; HEMATOCRIT 40.7 % (42-52); IG% 0.7 %; LYMPH % 35.2 %; MEAN CELL VOLUME 87.9 fL (80-100); MEAN CORPUSCULAR HGB CONC 34.2 g/dl (32-36); MONO % 11.4 %; NEUT % 49.5 %; PLATELET COUNT 145 K/uL (130-400); RED BLOOD COUNT 4.63 M/uL (4.7-6.1); WHITE BLOOD COUNT 5.96 K/uL (4.8-10.8)
== END | disposition home or self-care (01) ==
LOC: C.LAB 07:03
PROVIDERS: ATTEND Internal Medicine Hematology & Oncology
DX: D72.819 Decreased white blood cell count, unspecified (principal)

== ENCOUNTER 2017-07-26 13:49 | Emergency (ER) | payer BC ==
[~2017-07-26] VITALS: Ht 154.9 cm; Wt 80.0 kg
[2017-07-26 13:53] VITALS: TEMP 36.6; Ht 154.9 cm; Wt 80.0 kg
[2017-07-26 14:08] VITALS: O2SAT 95
--- NOTE | 2017-07-26 14:31 | EMERGENCY ROOM VISIT NOTE ---
History First contact with patient: 13:56 Chief Complaint: CHEST PAIN Stated Complaint: CHEST PAINS, SOB Nursing Triage Summary: patient reports left sided chest pain on and off for approx two weeks. Patient has had a cough that is productive at times states he has had the cough for approx three weeks. Patient also feels short of breath on and off. History of Present Illness The patient is a 77 year old male who presents to the Emergency Room with complaints of chest pain that has been intermittent for approximately 3 weeks. The patient has a history of dementia. Some of the history is taken from the patient's significant other, who is at the bedside. He describes it as a dull, aching sensation in the middle of his chest. It is exacerbated by coughing. The patient did have a productive cough approximately 1 month ago. He saw his primary care physician yesterday. He was started on doxycycline and prednisone. He has not seen any improvement. The chest pain is not exacerbated with exertion. He denies any history of coronary artery disease. He denies any shortness of breath. No fever or chills. Review of Systems 10 system review performed and negative unless noted in HPI or below Past Medical/Surgical History Medical Problems: (1) Angina (2) Asthma (3) Benign hypertension (4) Bilateral hip replacement (5) Bronchitis (6) CAD (coronary artery disease) (7) Chest pain (8) COPD (chronic obstructive pulmonary disease) (9) Diverticulitis (10) Diverticulosis (11) GERD (gastroesophageal reflux disease) (12) Headache (13) Heart disease (14) Hyperlipidemia (15) Hypertension (16) Neutropenic fever (17) Pneumonia (18) Pulmonary emboli (19) Splenomegaly (20) Stomach problems (21) Unstable angina Surgical Problems: (1) H/O prostatectomy (2) History of bilateral hip replacements Dementia Family History FH: diabetes mellitus FH: gallbladder disease FH: heart disease Hypertension Kidney disease Kidney stones Myocardial infarction Stroke Social History Smoking Status: Never Smoker Alcohol Use: none Drug Use: none Marital Status: Housing Status: lives with family Occupation Status: retired Current/Historical Medications Scheduled Apixaban (Eliquis), 5 MG PO BID Budesonide/Formoterol Fumarate (Symbicort 160/4.5 Inhaler), 1 PUFF PO BID Fexofenadine HCl (Mucinex Allergy), 180 MG PO BID Ipratropium-Albuterol (Combivent Respimat), 1 PUFFS INH BID Ipratropium-Albuterol (Duoneb), 1 TREATMENT INH QID Isosorbide Mononitrate Ext Rel (Imdur Ext Rel), 60 MG PO QAM Loratadine (Claritin), 10 MG PO DAILY Metoprolol Tartrate (Lopressor) (Lopressor), 25 MG PO BID Prednisone (Prednisone), 40 MG PO DAILY Prednisone (Prednisone), 10 MG PO DAILY Ranitidine Hcl (Zantac), 300 MG PO BID Scheduled PRN Nitroglycerin (Nitrostat), 0.4 MG UT UD PRN for Chest Pain Physical Exam Vital Signs Date Time Temp Pulse Resp B/P (MAP) Pulse Ox O2 Delivery O2 Flow Rate FiO2 07/26/17 18:22 61 20 122/60 97 Room Air 07/26/17 18:00 57 07/26/17 15:00 63 16 150/69 98 Room Air 07/26/17 14:09 63 07/26/17 14:08 95 Room Air 07/26/17 14:02 95 Room Air 07/26/17 13:53 36.6 63 17 164/74 96 Room Air 07/26/17 13:51 96 Room Air Physical Exam VITALS: Vitals are noted on the nurse's note and reviewed by myself. Vital signs stable. GENERAL: 77-year-old male, in no acute distress, SKIN: The skin was intact HEAD: Normocephalic atraumatic. NECK: No JVD. HEART: Regular rate and rhythm without murmurs gallops or rubs. No tenderness noted over the thorax. LUNGS: Clear to auscultation bilaterally without wheezes, rales or rhonchi. No accessory muscle use. ABDOMEN: Positive bowel sounds x 4.Soft, nontender, without organomegaly. No guarding or rebound tenderness. MUSCULOSKELETAL: +1 pitting edema in the lower extremities without any erythema , tenderness or warmth appreciated bilaterally. Strength 5/5 throughout. NEURO: Patient was alert and oriented to person and place only. He answers most questions appropriately. Medical Decision & Procedures ER Provider Diagnostic Interpretation: CXR IMPRESSION: No acute cardiopulmonary process. Laboratory Results 07/26/17 14:05 Red Blood Count 4.52, Mean Corpuscular Volume 90.0, Mean Corpuscular Hemoglobin 30.8, Mean Corpuscular Hemoglobin Concent 34.2, Mean Platelet Volume 10.0, Neutrophils (%) (Auto) 81.5, Lymphocytes (%) (Auto) 13.1, Monocytes (%) (Auto) 4.8, Eosinophils (%) (Auto) 0.1, Basophils (%) (Auto) 0.1, Neutrophils # (Auto) 6.17, Lymphocytes # (Auto) 0.99, Monocytes # (Auto) 0.36, Eosinophils # (Auto) 0.01, Basophils # (Auto) 0.01 07/26/17 14:05 Test 07/26/17 14:05 07/26/17 17:20 White Blood Count 7.57 K/uL (4.8-10.8) Red Blood Count 4.52 M/uL (4.7-6.1) Hemoglobin 13.9 g/dL (14.0-18.0) Hematocrit 40.7 % (42-52) Mean Corpuscular Volume 90.0 fL (80-100) Mean Corpuscular Hemoglobin 30.8 pg (25-34) Mean Corpuscular Hemoglobin Concent 34.2 g/dl (32-36) Platelet Count 153 K/uL (130-400) Mean Platelet Volume 10.0 fL (7.4-10.4) Neutrophils (%) (Auto) 81.5 % Lymphocytes (%) (Auto) 13.1 % Monocytes (%) (Auto) 4.8 % Eosinophils (%) (Auto) 0.1 % Basophils (%) (Auto) 0.1 % Neutrophils # (Auto) 6.17 K/uL (1.4-6.5) Lymphocytes # (Auto) 0.99 K/uL (1.2-3.4) Monocytes # (Auto) 0.36 K/uL (0.11-0.59) Eosinophils # (Auto) 0.01 K/uL (0-0.5) Basophils # (Auto) 0.01 K/uL (0-0.2) RDW Standard Deviation 48.4 fL (36.4-46.3) RDW Coefficient of Variation 14.7 % (11.5-14.5) Immature Granulocyte % (Auto) 0.4 % Immature Granulocyte # (Auto) 0.03 K/uL (0.00-0.02) Anion Gap 8.0 mmol/L (3-11) Est Creatinine Clear Calc Drug Dose 60.6 ml/min Estimated GFR () 94.5 Estimated GFR (Non- 81.5 BUN/Creatinine Ratio 10.4 (10-20) Calcium Level 9.0 mg/dl (8.5-10.1) Total Bilirubin 0.4 mg/dl (0.2-1) Aspartate Amino Transf (AST/SGOT) 15 U/L (15-37) Alanine Aminotransferase (ALT/SGPT) 25 U/L (12-78) Alkaline Phosphatase 74 U/L (45-117) Total Creatine Kinase 65 U/L (39-308) Creatine Kinase MB 1.4 ng/ml (0.5-3.6) Creatine Kinase MB Ratio 2.2 (0-3.0) Total Protein 6.8 gm/dl (6.4-8.2) Albumin 3.8 gm/dl (3.4-5.0) Globulin 3.0 gm/dl (2.5-4.0) Albumin/Globulin Ratio 1.3 (0.9-2) Troponin I < 0.015 ng/ml (0-0.045) ECG Indication: chest pain Rate (beats per minute): 65 Rhythm: normal sinus ED Course Patient was seen and examined Vital signs including blood pressure were reviewed medications list was verified with patient Labs were obtained, and a saline lock was established An EKG was performed. The patient was put on a monitor. Imaging was performed and reviewed The patient was reassessed and resting comfortably. We discussed the results of his workup. He voiced understanding. A repeat EKG and troponin were checked. I reviewed discharge instructions the patient. They voiced understanding and had no further questions. Medical Decision Differential diagnosis: Acute myocardial infarction, cardiac arrhythmia, anemia , thyroid abnormality, pneumothorax, pneumonia, bronchitis, pericarditis, electrolyte imbalance , musculoskeletal pain, This patient is a 77-year-old male that presents to emergency department with complaints of chest pain exacerbated with coughing. The pain sounds musculoskeletal in nature. The history is somewhat difficult as the patient has dementia. The patient reportedly had a normal stress test a few years ago. His cardiac workup was unremarkable. An EKG shows normal sinus rhythm. I also repeated an EKG and troponin. All were unchanged. The patient is currently being treated for bronchitis by his primary care physician. He started doxycycline and prednisone yesterday. I have a very low suspicion of pulmonary embolus as the patient is not short of breath. He is not tachycardic. He is not hypoxic. Believe he is stable to be discharged home. He was given a follow-up appointment with his primary care physician tomorrow. He was advised to return to the emergency department with any new or worsening symptoms. This chart was completed in part utilizing [employer] Speech Voice Recognition software. Attempts were made to minimize the grammatical errors, random word insertions, pronoun errors and incomplete sentences. Any formal questions or concerns about the content, text or information contained within the body of this dictation should be directly addressed to the provider for clarification. Medication Reconcilliation Current Medication List: was personally reviewed by me Blood Pressure Screening Patient's blood pressure: Normal blood pressure Impression Primary Impression: Chest pain Departure Information Dispostion Home / Self-Care Condition GOOD Referrals Brad Mason III, CRNP (PCP) Patient Instructions My [facility] Additional Instructions You were evaluated in the emergency department today for chest pain. It appears that this is likely musculoskeletal pain. It is very important to have close follow-up with your primary care physician. Please follow-up as scheduled tomorrow morning at 10:15 AM. Please continue your medications as prescribed. Please return to the emergency department with any new or worsening symptoms.
[2017-07-26 14:33] LABS: BASO % 0.1 %; BASO ABS # 0.01 K/uL (0-0.2); COMPLETE YES; EOS % 0.1 %; HEMATOCRIT 40.7 % (42-52); IG% 0.4 %; LYMPH % 13.1 %; LYMPH ABS # 0.99 K/uL (1.2-3.4); MEAN CORPUSCULAR HEMOGLOBIN 30.8 pg (25-34); MEAN CORPUSCULAR HGB CONC 34.2 g/dl (32-36); MONO % 4.8 %; NEUT % 81.5 %; PLATELET COUNT 153 K/uL (130-400); RED BLOOD COUNT 4.52 M/uL (4.7-6.1); WHITE BLOOD COUNT 7.57 K/uL (4.8-10.8)
[2017-07-26 14:38] LABS: ALT/SGPT 25 U/L (12-78); BLOOD UREA NITROGEN 9 mg/dl (7-18); BUN/CREATININE RATIO 10.4 (10-20); CARBON DIOXIDE 24 mmol/L (21-32); CHLORIDE 109 mmol/L (98-107); GLUCOSE 163 mg/dl (70-99); SODIUM 141 mmol/L (136-145)
[2017-07-26 14:43] LABS: ALB/GLOB RATIO 1.3 (0.9-2); ALKALINE PHOSPHATASE 74 U/L (45-117); AST/SGOT 15 U/L (15-37); CKMB/CK RATIO 2.2 (0-3.0)
[2017-07-26] MEDS ORDERED: PRED10TA PO (14:49)
[2017-07-26] MEDS ORDERED: PRED20TA PO (14:49)
--- NOTE | 2017-07-26 14:55 | DIAGNOSTIC IMAGING REPORT ---
CHEST ONE VIEW PORTABLE HISTORY: 77 years-old Male cough CP acute cough with atypical chest pain COMPARISON: Chest radiograph 05/14/2017, chest CT 05/14/2017 TECHNIQUE: Portable upright AP view of the chest FINDINGS: Cardiomediastinal and hilar silhouettes are within normal limits. There is atherosclerosis of the aorta. No pneumothorax, pleural effusion or focal airspace consolidation. No overt pulmonary edema. Advanced degenerative changes of the bilateral shoulders. The bones are grossly intact. IMPRESSION: No acute cardiopulmonary process. The above report was generated using voice recognition software. It may contain grammatical, syntax or spelling errors. Electronically signed by: Kuldeep Wilson M.D. 07/26/2017 2:54 PM Dictated Date/Time: 07/26/2017 2:52 PM
[2017-07-26 18:22] VITALS: BP 122/60; PULSE 61; O2SAT 97
--- NOTE | 2017-07-27 21:55 | EMERGENCY ROOM VISIT NOTE ---
ED Visit Note First contact with patient: 13:56 I have personally seen and evaluated the patient with the PA. I agree with the diagnosis and management decisions and have been personally involved in the case. Please see Shellie Hutson PA-C's notes for further details of the history, physical and visit.
== END 2017-07-26 18:25 | disposition home or self-care (01) ==
LOC: C.EDB 13:50
DX: R07.9 Chest pain, unspecified (principal); F03.90 Unspecified dementia, unspecified severity, without behavioral disturbance, psychotic disturbance, mood disturbance, and anxiety; J45.909 Unspecified asthma, uncomplicated; I10 Essential (primary) hypertension; Z96.643 Presence of artificial hip joint, bilateral; I25.10 Atherosclerotic heart disease of native coronary artery without angina pectoris; J44.9 Chronic obstructive pulmonary disease, unspecified; K21.9 Gastro-esophageal reflux disease without esophagitis; E78.5 Hyperlipidemia, unspecified; Z87.01 Personal history of pneumonia (recurrent); Z86.718 Personal history of other venous thrombosis and embolism; Z90.79 Acquired absence of other genital organ(s); Z83.3 Family history of diabetes mellitus; Z82.49 Family history of ischemic heart disease and other diseases of the circulatory system; Z84.1 Family history of disorders of kidney and ureter; Z82.3 Family history of stroke; Z79.01 Long term (current) use of anticoagulants; Z79.899 Other long term (current) drug therapy

== ENCOUNTER 2017-08-13 17:14 | Inpatient (IN) | payer BC, OTHER ==
[~2017-08-13] VITALS: Ht 154.9 cm; Wt 93.4 kg
[~2017-08-13 17:14] MED LIST changes: -CHOL100027 PO; -DONE5TAB9 PO; -FERR324T PO; -MULT-506 PO; +PRED20TA PO; -SNG10 PO
[2017-08-13] MEDS ORDERED: LEVAQUIN 750MG / 150ML D5W IV STA (19:03)
[2017-08-13] MEDS ORDERED: ALBUT/IPRATROP 3MG/0.5MG NEB 3 ML VIAL INH ONE (19:15)
[2017-08-13 19:31] LABS: BASO % 0.1 %; BASO ABS # 0.01 K/uL (0-0.2); COMPLETE YES; IG% 0.2 %; LYMPH % 26.4 %; LYMPH ABS # 2.16 K/uL (1.2-3.4); MEAN CELL VOLUME 91.3 fL (80-100); MEAN CORPUSCULAR HEMOGLOBIN 31.1 pg (25-34); MEAN PLATELET VOLUME 9.5 fL (7.4-10.4); MONO % 8.7 %; NEUT % 63.6 %; PLATELET COUNT 134 K/uL (130-400); RED BLOOD COUNT 4.38 M/uL (4.7-6.1); WHITE BLOOD COUNT 8.18 K/uL (4.8-10.8)
[2017-08-13 19:38] VITALS: PULSE 72; O2SAT 94
[2017-08-13 19:41] LABS: PARTIAL THROMBOPLASTIN RATIO 0.9; PROTHROMBIN TIME (PATIENT) 10.2 SECONDS (9.0-12.0)
--- NOTE | 2017-08-13 19:44 | DIAGNOSTIC IMAGING REPORT ---
CHEST ONE VIEW PORTABLE CLINICAL HISTORY: EVALUATE RESPIRATORY DISTRESS.DYSPNEA dyspnea COMPARISON STUDY: 07/26/2017 FINDINGS: Mild cardiomegaly. Focal atelectasis left base. Diaphragms smooth. Lungs are clear. IMPRESSION: Moderate cardiomegaly. Platelike atelectasis left base. The above report was generated using voice recognition software. It may contain grammatical, syntax or spelling errors. Electronically signed by: Luis Daniel Almeida M.D. 08/13/2017 7:43 PM Dictated Date/Time: 08/13/2017 7:42 PM
[2017-08-13 21:23] LABS: ALB/GLOB RATIO 1.1 (0.9-2); ALKALINE PHOSPHATASE 68 U/L (45-117); ALT/SGPT 43 U/L (12-78); BLOOD UREA NITROGEN 24 mg/dl (7-18); BUN/CREATININE RATIO 24.9 (10-20); CALCIUM 8.9 mg/dl (8.5-10.1); CARBON DIOXIDE 27 mmol/L (21-32); CHLORIDE 109 mmol/L (98-107); CREATININE 0.97 mg/dl (0.60-1.40); GLUCOSE 119 mg/dl (70-99)
[2017-08-13 21:28] LABS: SODIUM 143 mmol/L (136-145)
[2017-08-13 21:33] LABS: AST/SGOT 22 U/L (15-37)
[2017-08-13] MEDS ORDERED: BUDESONIDE/FORMOTEROL FUMARATE 160/4.5 60 PUFFS/INHALER INH ONE (22:55)
[2017-08-13] MEDS ORDERED: APIXABAN 2.5 MG TAB PO ONE (22:55)
[2017-08-13] MEDS ORDERED: GUAIFENESIN 600 MG TABCR PO ONE (22:55)
[2017-08-13] MEDS ORDERED: ACETAMINOPHEN 325 MG TAB PO PRN (23:00)
[2017-08-13] MEDS ORDERED: NITROGLYCERIN 0.4 MG SL PER TAB CHARGE UT PRN (23:00)
[2017-08-13] MEDS ORDERED: ONDANSETRON INJ 2 MG/ML 2 ML VIAL IV PRN (23:00)
[2017-08-13] MEDS ORDERED: HEPARIN SOD 5000 UNIT/0.5 ML CARP SQ SCH (23:00)
[2017-08-14] VITALS (8 sets, daily range): BP systolic 138–162; BP diastolic 77–83; PULSE 62–78; TEMP 36.5–36.9; O2SAT 93–98; Ht 154.9 cm; Wt 93.4 kg
--- NOTE | 2017-08-14 00:37 | EMERGENCY ROOM VISIT NOTE ---
History Report prepared by Simi: Nedra Mane Under the Supervision of: Dr. Angelica Cohn D.O. First contact with patient: 18:51 Chief Complaint: REFERRED BY DOCTOR Stated Complaint: BREATHING ISSUES History of Present Illness The patient is a 77 year old male who presents to the Emergency Room with complaints of difficulty breathing beginning 2-3 weeks ago. He notes his symptoms with tightness in his chest and a cough. Presently the patient still has chest tightness, a cough and shortness of breath but denies any arm pain or jaw pain. The patient's cough has a productive chaudhari mucus. At baseline, the patient can ambulate without difficulty. He notes a slight difficultly with ambulating long distances for the past 5 days. The patient has been on prednisone for the past 5 days but is not on antibiotics. The patient was referred to the ED by his PCP because his symptoms have been worsening. The uses nebulizers with relief. The patient has been on Eliquis for the past 2 months for PEs. The patient has history of asthma and hypertension. The patient is not a smoker. Source of History: patient Onset: 2-3 weeks ago Position: other (generalized) Quality: other (shortness of breath) Modifying Factors (Worsening): movement Associated Symptoms: + cough, + chest pain, + SOB Review of Systems See HPI for pertinent positives & negatives. A total of 10 systems reviewed and were otherwise negative. Past Medical & Surgical Medical Problems: (1) Angina (2) Asthma (3) Benign hypertension (4) Bilateral hip replacement (5) Bronchitis (6) CAD (coronary artery disease) (7) Chest pain (8) COPD (chronic obstructive pulmonary disease) (9) COPD exacerbation (10) Diverticulitis (11) Diverticulosis (12) GERD (gastroesophageal reflux disease) (13) Headache (14) Heart disease (15) Hyperlipidemia (16) Hypertension (17) Neutropenic fever (18) Pneumonia (19) Pulmonary emboli (20) Splenomegaly (21) Stomach problems (22) Unstable angina Surgical Problems: (1) H/O prostatectomy (2) History of bilateral hip replacements Family History FH: diabetes mellitus FH: gallbladder disease FH: heart disease Hypertension Kidney disease Kidney stones Myocardial infarction Stroke Social History Smoking Status: Never Smoker Alcohol Use: none Drug Use: none Marital Status: Housing Status: lives with family Occupation Status: retired Current/Historical Medications Scheduled Apixaban (Eliquis), 5 MG PO BID Budesonide/Formoterol Fumarate (Symbicort 160/4.5 Inhaler), 1 PUFF PO BID Fexofenadine HCl (Mucinex Allergy), 180 MG PO BID Ipratropium-Albuterol (Combivent Respimat), 1 PUFFS INH BID Ipratropium-Albuterol (Duoneb), 1 TREATMENT INH QID Isosorbide Mononitrate Ext Rel (Imdur Ext Rel), 60 MG PO QAM Loratadine (Claritin), 10 MG PO DAILY Metoprolol Tartrate (Lopressor) (Lopressor), 25 MG PO BID Prednisone (Prednisone), 40 MG PO DAILY Ranitidine Hcl (Zantac), 300 MG PO BID Scheduled PRN Nitroglycerin (Nitrostat), 0.4 MG UT UD PRN for Chest Pain Allergies Coded Allergies: Ibuprofen (Verified Allergy, Mild, ULCERS, 08/13/17) Physical Exam Vital Signs Date Time Temp Pulse Resp B/P (MAP) Pulse Ox O2 Delivery O2 Flow Rate FiO2 08/13/17 22:51 89 22 144/74 94 Room Air 08/13/17 21:09 96 21 141/76 94 Room Air Nebulizer 08/13/17 19:56 71 20 136/79 99 Nebulizer 08/13/17 19:38 72 20 94 Room Air 08/13/17 19:28 70 08/13/17 19:27 94 Room Air 08/13/17 19:27 94 Room Air 08/13/17 18:58 81 16 180/85 94 Room Air 08/13/17 17:25 36.9 77 18 159/76 94 Room Air Physical Exam GENERAL: Sitting up in bed, alert, well appearing. EYE EXAM: normal conjunctiva. OROPHARYNX: no exudate, no erythema, lips, buccal mucosa, and tongue normal and mucous membranes are moist NECK: supple, no nuchal rigidity, no adenopathy, non-tender LUNGS: Dry persistent cough with audible wheezing throughout lung valentin. Normal chest wall mechanics HEART: no murmurs, S1 normal and S2 normal ABDOMEN: abdomen soft, non-tender, normo-active bowel sounds, no masses, no rebound or guarding. BACK: Back is symmetrical on inspection and there is no deformity, no midline tenderness, no CVA tenderness. SKIN: no rashes and no bruising UPPER EXTREMITIES: upper extremities are grossly normal. LOWER EXTREMITIES: No pitting edema. Calf size equal bilaterally. NEURO EXAM: Normal sensorium, cranial nerves II-XII grossly intact, normal speech, no gross weakness of arms, no gross weakness of legs. Medical Decision & Procedures ER Provider Diagnostic Interpretation: Radiology results as stated below per my review and the radiologist's interpretation: CHEST ONE VIEW PORTABLE CLINICAL HISTORY: EVALUATE RESPIRATORY DISTRESS.DYSPNEA dyspnea COMPARISON STUDY: 07/26/2017 FINDINGS: Mild cardiomegaly. Focal atelectasis left base. Diaphragms smooth. Lungs are clear. IMPRESSION: Moderate cardiomegaly. Platelike atelectasis left base. The above report was generated using voice recognition software. It may contain grammatical, syntax or spelling errors. Electronically signed by: Luis Daniel Almeida M.D. Laboratory Results 08/13/17 19:15 Red Blood Count 4.38, Mean Corpuscular Volume 91.3, Mean Corpuscular Hemoglobin 31.1, Mean Corpuscular Hemoglobin Concent 34.0, Mean Platelet Volume 9.5, Neutrophils (%) (Auto) 63.6, Lymphocytes (%) (Auto) 26.4, Monocytes (%) (Auto) 8.7, Eosinophils (%) (Auto) 1.0, Basophils (%) (Auto) 0.1, Neutrophils # (Auto) 5.20, Lymphocytes # (Auto) 2.16, Monocytes # (Auto) 0.71, Eosinophils # (Auto) 0.08, Basophils # (Auto) 0.01 08/13/17 19:15 Test 08/13/17 19:15 White Blood Count 8.18 K/uL (4.8-10.8) Red Blood Count 4.38 M/uL (4.7-6.1) Hemoglobin 13.6 g/dL (14.0-18.0) Hematocrit 40.0 % (42-52) Mean Corpuscular Volume 91.3 fL (80-100) Mean Corpuscular Hemoglobin 31.1 pg (25-34) Mean Corpuscular Hemoglobin Concent 34.0 g/dl (32-36) Platelet Count 134 K/uL (130-400) Mean Platelet Volume 9.5 fL (7.4-10.4) Neutrophils (%) (Auto) 63.6 % Lymphocytes (%) (Auto) 26.4 % Monocytes (%) (Auto) 8.7 % Eosinophils (%) (Auto) 1.0 % Basophils (%) (Auto) 0.1 % Neutrophils # (Auto) 5.20 K/uL (1.4-6.5) Lymphocytes # (Auto) 2.16 K/uL (1.2-3.4) Monocytes # (Auto) 0.71 K/uL (0.11-0.59) Eosinophils # (Auto) 0.08 K/uL (0-0.5) Basophils # (Auto) 0.01 K/uL (0-0.2) RDW Standard Deviation 47.9 fL (36.4-46.3) RDW Coefficient of Variation 14.4 % (11.5-14.5) Immature Granulocyte % (Auto) 0.2 % Immature Granulocyte # (Auto) 0.02 K/uL (0.00-0.02) Prothrombin Time 10.2 SECONDS (9.0-12.0) Prothromb Time International Ratio 1.0 (0.9-1.1) Activated Partial Thromboplast Time 24.5 SECONDS (21.0-31.0) Partial Thromboplastin Ratio 0.9 Anion Gap 6.0 mmol/L (3-11) Est Creatinine Clear Calc Drug Dose 61.0 ml/min Estimated GFR () 86.3 Estimated GFR (Non- 74.5 BUN/Creatinine Ratio 24.9 (10-20) Calcium Level 8.9 mg/dl (8.5-10.1) Total Bilirubin 0.3 mg/dl (0.2-1) Aspartate Amino Transf (AST/SGOT) 22 U/L (15-37) Alanine Aminotransferase (ALT/SGPT) 43 U/L (12-78) Alkaline Phosphatase 68 U/L (45-117) Troponin I < 0.015 ng/ml (0-0.045) Pro-B-Type Natriuretic Peptide 147 pg/ml (0-1800) Total Protein 6.4 gm/dl (6.4-8.2) Albumin 3.4 gm/dl (3.4-5.0) Globulin 3.0 gm/dl (2.5-4.0) Albumin/Globulin Ratio 1.1 (0.9-2) Laboratory results per my review. Medications Administered Medications (Trade) Dose Ordered Sig/Guille Route Start Time Stop Time Status Last Admin Dose Admin Levofloxacin (Levaquin / D5W) 750 mg NOW STAT IV 08/13/17 19:03 08/13/17 19:06 DC 08/13/17 19:35 750 MG Albuterol/ Ipratropium (Duoneb) 12 ml ONE ONCE INH 08/13/17 19:15 08/13/17 19:16 DC 08/13/17 19:38 12 ML Prednisone (PredniSONE TAB) 60 mg NOW STAT PO 08/13/17 19:03 08/13/17 19:06 DC 08/13/17 19:03 60 MG ED Course ED COURSE: Vital signs were reviewed and showed hypertensive The patients medical record was reviewed The above diagnostic studies were performed and reviewed. ED treatments and interventions as stated above. 1854: The patient was evaluated in room B5. A complete history and physical examination was performed. 1902: Prednisone 60 mg PO, Levofloxacin 750 mg IV. 1914: Duoneb 12 ml INH. 2056: The patient is still short of breath. 2100: I reviewed the patient's case with Dr. Christensen. He will evaluate the patient for further management. 2153: Upon reevaluation, the patient is resting.I discussed my findings with the patient and he understands and agrees with the treatment plan. Based on the patients age, coexisting illnesses, exam and lab findings the decision to treat as an inpatient was made. The patient remained stable while under my care. The patient will be evaluated for further management. Medical Decision Differential diagnoses includes but is not limited to pneumonia, bronchitis, COPD/Asthma exacerbation, pneumothorax, pulmonary embolism, congestive heart failure, acute coronary syndrome. Patient is a 77-year-old male who presents to ER for persistent cough and shortness of breath which has been worsening over the past week. Has been on steroids. CBC all BMP, LFTs, bilirubin and troponin were negative. INR was normal. Chest x-ray shows atelectasis in left lower lobe. Patient was given IV Levaquin and an hour neb treatment. Minimal improvement along with steroids. Patient was admitted to internal medicine with a bronchitis and asthma exacerbation. Medication Reconcilliation Current Medication List: was personally reviewed by me Blood Pressure Screening Patient's blood pressure: Elevated blood pressure Blood pressure disposition: Elevated BP felt to be situational Consults Time Called: 2100 Consulting Physician: Dr. Christensen Returned Call: 2100 I reviewed the patient's case with Dr. Christensen. He will evaluate the patient for further management. Impression Primary Impression: Asthma exacerbation Additional Impression: Bronchitis Scribe Attestation The scribe's documentation has been prepared under my direction and personally reviewed by me in its entirety. I confirm that the note above accurately reflects all work, treatment, procedures, and medical decision making performed by me. Departure Information Dispostion Being Evaluated By Hospitalist Referrals Brad Mason III, CRNP (PCP) Patient Instructions My [facility] Problem Qualifiers Primary Impression: Asthma exacerbation Asthma severity: unspecified severity Asthma persistence: unspecified Qualified Codes: J45.901 - Unspecified asthma with (acute) exacerbation
--- NOTE | 2017-08-14 01:07 | History and Physical ---
History & Physical Date & Time of Service: Aug 13, 2017 at 22:54 Chief Complaint: Breathing Issues Primary Care Physician: Brad Mason III, CRNP History of Present Illness Source: patient, clinic records, hospital records Mr Daniel is a 77 year old male who presents to the ER with shortness of breath. When seen the patient appeared calm at rest and was unsure about his symptoms or even whether he had visited the office today, his past medical history, medications. His had left who takes care of his medications. Therefore history was taken mostly from outpatient and ER records. He was seen in the outpatient office on Aug 09 (4 days previously) and diagnosed with asthma exacerbation treated with a steroid taper (prednisone 40mg for 5 days then 20 mg for 5 days) and nebulizers. He was not given any antibiotics. The patient reports 2 days previous his shortness of breath and cough became worse, productive of chaudhari mucus. His shortness of breath improves when lying down He is compliant with his medications and on apixaban for previous PEs. He denies any chest pain, recent long haul travel, sick contacts, leg swelling or palpitations. Past Medical/Surgical History Medical Problems: (1) Angina Status: Chronic (2) Asthma Status: Chronic (3) Benign hypertension Status: Chronic (4) Bilateral hip replacement Status: Resolved (5) Bronchitis Status: Resolved (6) CAD (coronary artery disease) Status: Chronic (7) Chest pain Status: Resolved (8) COPD (chronic obstructive pulmonary disease) Status: Chronic (9) Diverticulitis Status: Resolved (10) Diverticulosis Status: Chronic (11) GERD (gastroesophageal reflux disease) Status: Chronic (12) Headache Status: Resolved (13) Heart disease Status: Chronic (14) Hyperlipidemia Status: Chronic (15) Hypertension Status: Chronic (16) Pneumonia Status: Resolved (17) Splenomegaly Status: Chronic (18) Stomach problems Status: Chronic (19) Unstable angina Status: Resolved Surgical Problems: (1) H/O prostatectomy Status: Resolved (2) History of bilateral hip replacements Status: Chronic Family History FH: diabetes mellitus FH: gallbladder disease FH: heart disease Hypertension Kidney disease Kidney stones Myocardial infarction Stroke Social History Smoking Status: Never Smoker Drug Use: none Marital Status: Housing status: lives with significant other Occupational Status: retired Immunizations History of Influenza Vaccine: Yes Influenza Vaccine Date: Jul 05, 2013 History of Tetanus Vaccine?: Unknown History of Pneumococcal: Yes Pneumococcal Date: Oct 04, 2011 History of Hepatitis B Vaccine: Unknown Multi-Drug Resistant Organisms History of MDRO: No Allergies Coded Allergies: Ibuprofen (Verified Allergy, Mild, ULCERS, 08/13/17) Home Medications Scheduled Apixaban (Eliquis), 5 MG PO BID Budesonide/Formoterol Fumarate (Symbicort 160/4.5 Inhaler), 1 PUFF PO BID Fexofenadine HCl (Mucinex Allergy), 180 MG PO BID Ipratropium-Albuterol (Combivent Respimat), 1 PUFFS INH BID Ipratropium-Albuterol (Duoneb), 1 TREATMENT INH QID Isosorbide Mononitrate Ext Rel (Imdur Ext Rel), 60 MG PO QAM Loratadine (Claritin), 10 MG PO DAILY Metoprolol Tartrate (Lopressor) (Lopressor), 25 MG PO BID Prednisone (Prednisone), 40 MG PO DAILY Ranitidine Hcl (Zantac), 300 MG PO BID Scheduled PRN Nitroglycerin (Nitrostat), 0.4 MG UT UD PRN for Chest Pain Review of Systems Constitutional: No fever, No chills Eyes: No worsening of vision ENT: No hearing loss Respiratory: + cough, + sputum, + wheezing, No shortness of breath Cardiovascular: No chest pain, No edema, No palpitations Abdomen: No pain, No nausea, No vomiting, No diarrhea, No constipation, No GI bleeding Musculoskeletal: No joint pain, No muscle pain Genitourinary - Male: No hematuria, No dysuria, No urinary frequency Neurologic: No weakness, No numbness/tingling, No vertigo, No balance problems Psychiatric: No depression symptoms, No anxiety Endocrine: No fatigue, No excessive thirst, No excessive urination Hematologic / Lymphatic: No abnormal bleeding/bruising Integumentary: No rash Physical Exam Vital Signs Date Time Temp Pulse Resp B/P (MAP) Pulse Ox O2 Delivery O2 Flow Rate FiO2 08/13/17 22:51 89 22 144/74 94 Room Air 08/13/17 21:09 96 21 141/76 94 Room Air Nebulizer 08/13/17 19:56 71 20 136/79 99 Nebulizer 08/13/17 19:38 72 20 94 Room Air 08/13/17 19:28 70 08/13/17 19:27 94 Room Air 08/13/17 19:27 94 Room Air 08/13/17 18:58 81 16 180/85 94 Room Air 08/13/17 17:25 36.9 77 18 159/76 94 Room Air General Appearance: WD/WN, no apparent distress Head: normocephalic, atraumatic Eyes: normal inspection (pupils equal) ENT: normal ENT inspection, pharynx normal Neck: supple, no adenopathy, trachea midline Respiratory/Chest: chest non-tender, no respiratory distress, no accessory muscle use, + wheezing (expiratory throughout, bibasal crackles L=R) Cardiovascular: regular rate, rhythm, no murmur, normal peripheral pulses Abdomen/GI: normal bowel sounds, non tender, soft Back: no CVA tenderness Extremities/Musculoskelatal: no calf tenderness, normal capillary refill, + pedal edema (1+ b/l) 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, no motor/sensory deficits (grossly no lateralizing motor or sensory deficits), alert, normal mood/affect, oriented x 3 Skin: normal color, warm/dry, no rash Diagnostics Laboratory Results Results Past 24 Hours Test 08/13/17 19:15 Range/Units White Blood Count 8.18 4.8-10.8 K/uL Red Blood Count 4.38 4.7-6.1 M/uL Hemoglobin 13.6 14.0-18.0 g/dL Hematocrit 40.0 42-52 % Mean Corpuscular Volume 91.3 80-100 fL Mean Corpuscular Hemoglobin 31.1 25-34 pg Mean Corpuscular Hemoglobin Concent 34.0 32-36 g/dl Platelet Count 134 130-400 K/uL Mean Platelet Volume 9.5 7.4-10.4 fL Neutrophils (%) (Auto) 63.6 % Lymphocytes (%) (Auto) 26.4 % Monocytes (%) (Auto) 8.7 % Eosinophils (%) (Auto) 1.0 % Basophils (%) (Auto) 0.1 % Neutrophils # (Auto) 5.20 1.4-6.5 K/uL Lymphocytes # (Auto) 2.16 1.2-3.4 K/uL Monocytes # (Auto) 0.71 0.11-0.59 K/uL Eosinophils # (Auto) 0.08 0-0.5 K/uL Basophils # (Auto) 0.01 0-0.2 K/uL RDW Standard Deviation 47.9 36.4-46.3 fL RDW Coefficient of Variation 14.4 11.5-14.5 % Immature Granulocyte % (Auto) 0.2 % Immature Granulocyte # (Auto) 0.02 0.00-0.02 K/uL Prothrombin Time 10.2 9.0-12.0 SECONDS Prothromb Time International Ratio 1.0 0.9-1.1 Activated Partial Thromboplast Time 24.5 21.0-31.0 SECONDS Partial Thromboplastin Ratio 0.9 Sodium Level 143 136-145 mmol/L Potassium Level 4.0 3.5-5.1 mmol/L Chloride Level 109 98-107 mmol/L Carbon Dioxide Level 27 21-32 mmol/L Anion Gap 6.0 3-11 mmol/L Blood Urea Nitrogen 24 7-18 mg/dl Creatinine 0.97 0.60-1.40 mg/dl Est Creatinine Clear Calc Drug Dose 61.0 ml/min Estimated GFR () 86.3 Estimated GFR (Non- 74.5 BUN/Creatinine Ratio 24.9 10-20 Random Glucose 119 70-99 mg/dl Calcium Level 8.9 8.5-10.1 mg/dl Total Bilirubin 0.3 0.2-1 mg/dl Aspartate Amino Transf (AST/SGOT) 22 15-37 U/L Alanine Aminotransferase (ALT/SGPT) 43 12-78 U/L Alkaline Phosphatase 68 45-117 U/L Troponin I < 0.015 0-0.045 ng/ml Pro-B-Type Natriuretic Peptide 147 0-1800 pg/ml Total Protein 6.4 6.4-8.2 gm/dl Albumin 3.4 3.4-5.0 gm/dl Globulin 3.0 2.5-4.0 gm/dl Albumin/Globulin Ratio 1.1 0.9-2 Diagnostic Radiology CHEST ONE VIEW PORTABLE CLINICAL HISTORY: EVALUATE RESPIRATORY DISTRESS.DYSPNEA dyspnea COMPARISON STUDY: 07/26/2017 FINDINGS: Mild cardiomegaly. Focal atelectasis left base. Diaphragms smooth. Lungs are clear. IMPRESSION: Moderate cardiomegaly. Platelike atelectasis left base. The above report was generated using voice recognition software. It may contain grammatical, syntax or spelling errors. Electronically signed by: Luis Daniel Almeida M.D. 08/13/2017 7:43 PM Dictated Date/Time: 08/13/2017 7:42 PM EKG Normal sinus rhythm with sinus arrhythmia 71bpm Normal ECG When compared with ECG of 26-JUL-2017 15:27, No significant change was found Impression Assessment and Plan 77 year old admission for shortness of breath with failed outpatient treatment Asthma exacerbation - Duonebs Q6H + Q2H PRN - Methylprednisone IV 60mg Q6H - Symbicort 160/4.5 2 puffs BID - start guaifenesin 1200mg ER BID, incentive spirometry and flutter valve - sputum culture if possible - consult pulmonology given failure of outpatient treatment Possible pneumonia vs. atelectasis on left base - Continue Levaquin 750 mg IV daily Hypertension - continue metoprolol Coronary artery disease - Continue aspirin, metoprolol, ISMN BISI - BiPAP at night (previous settings 23/06) GERD - continue ranitidine 150mg BID (unclear why on higher than normal dose of 300mg BID as outpatient) Resident Physician Supervision Note: I was present with Dr. Snell during the history and exam. I discussed the case with the resident and agree with the findings and plan as documented in the note. Any exceptions or clarifications are listed here: 77 y/o M Hx CAD, HTN, Asthma/COPD - had c/o SOB for past 2 days despite outpt treatment for COPD exac - pt likely suffers from dementia and did not know why he was in hospital OE AAO x 2 S1,2 R Poor air movement - no clear wheezing/crackles NT, ND No CCE No Deficits P: Placed on IV steroids, 02, Abx, Nebs To be evaluated by pulm due to outpt treatment failure Cont ASA/Toprol as rescribed Documented By: Carlos Alberto Hines Level of Care Med/Surg Resuscitation Status FULL RESUSCITATION VTE Prophylaxis VTE Risk Assessment Done? Y/N: Yes Risk Level: Low (already on anticogulation) Given or contraindicated: Other Anticoagulation (apixaban) Resident Tracking Resident Involvement: Resident Care Provided Care Provided: Adult Hospital Medicine
[2017-08-14] MEDS ORDERED: IV FLUIDS COMPLETED PRN (01:45)
[2017-08-14] MEDS: METHYLPREDNISOLONE IV 60 MG in SYRINGE 0 ML IV SCH ×4 (06:22→23:47)
[2017-08-14 06:23] LABS: INFLUENZA A PCR Neg for Influ A (NEG); INFLUENZA B PCR Neg for Influ B (NEG)
[2017-08-14 06:34] LABS: BASO % 0.1 %; BASO ABS # 0.01 K/uL (0-0.2); COMPLETE YES; HEMATOCRIT 40.7 % (42-52); IG% 0.5 %; LYMPH % 8.4 %; LYMPH ABS # 0.69 K/uL (1.2-3.4); MEAN CELL VOLUME 91.9 fL (80-100); MEAN CORPUSCULAR HEMOGLOBIN 31.6 pg (25-34); MEAN CORPUSCULAR HGB CONC 34.4 g/dl (32-36); MEAN PLATELET VOLUME 9.9 fL (7.4-10.4); MONO % 4.1 %; NEUT % 86.9 %; PLATELET COUNT 126 K/uL (130-400); RED BLOOD COUNT 4.43 M/uL (4.7-6.1); WHITE BLOOD COUNT 8.24 K/uL (4.8-10.8)
[2017-08-14 07:08] LABS: BUN/CREATININE RATIO 19.1 (10-20); CALCIUM 8.9 mg/dl (8.5-10.1); CREATININE 1.03 mg/dl (0.60-1.40); POTASSIUM 4.3 mmol/L (3.5-5.1)
[2017-08-14] MEDS: ALBUT/IPRATROP 3MG/0.5MG NEB 3 ML VIAL INH SCH ×4 (07:08→19:07)
[2017-08-14] MEDS: RANITIDINE HCL 150 MG TAB PO SCH ×2 (07:53→20:00)
[2017-08-14] MEDS: LORATADINE 10 MG TAB PO SCH (07:53)
[2017-08-14] MEDS: BUDESONIDE/FORMOTEROL FUMARATE 160/4.5 60 PUFFS/INHALER INH SCH ×2 (07:54→19:59)
[2017-08-14] MEDS: FEXOFENADINE HCL 180 MG TAB PO SCH ×2 (07:54→20:02)
[2017-08-14] MEDS: APIXABAN 2.5 MG TAB PO SCH ×2 (07:54→20:01)
[2017-08-14] MEDS: ISOSORBIDE MONONITRATE 60 MG TABCR PO SCH (07:54)
[2017-08-14] MEDS: METOPROLOL TARTRATE 25 MG TAB PO SCH ×2 (07:54→20:01)
[2017-08-14] MEDS: GUAIFENESIN 600 MG TABCR PO SCH ×2 (07:55→20:00)
--- NOTE | 2017-08-14 09:42 | Progress Note ---
Subjective Date of Service: Aug 14, 2017. Subjective Pt evaluation today including: conversation w/ patient, physical exam, chart review, lab review, review of studies, conversation w/ validation consultant, review of inpatient medication list Still cough that is dry cough, associated with wheezing, generally feeling better, no other complaint Problem List Medical Problems: (1) Abdominal pain Status: Acute (2) Anemia Status: Acute (3) Asthma exacerbation Status: Acute (4) Bronchitis Status: Acute (5) Cellulitis of hand, right Status: Acute (6) Cough Status: Acute (7) Fall Status: Acute (8) Generalized abdominal pain Status: Acute (9) Hyperkalemia Status: Acute (10) Non-cardiac chest pain Status: Acute (11) Sepsis Status: Acute (12) Sigmoid diverticulitis Status: Acute (13) Thrombocytopenia Status: Acute (14) Thrombocytopenia Status: Acute Review of Systems Constitutional: No fever, No chills, No sweats, No weight loss, No weakness, No fatigue, No problem reported Eyes: No worsening of vision, No eye pain, No redness, No discharge, No diplopia ENT: No hearing loss, No unusual epistaxis, No nasal symptoms, No sore throat, No tinnitus, No dental problems, No trouble swallowing Respiratory: + see HPI, + wheezing, + dyspnea on exertion, No sputum Cardiac: No chest pain, No orthopnea, No PND, No edema, No claudication, No palpitations Abdomen: No pain, No nausea, No vomiting, No diarrhea, No constipation Musculoskeletal: No joint pain, No muscle pain, No swelling, No calf pain Male : No dysuria, No urinary frequency, No incontinence, No nocturia more than once/night, No slowing stream, No hematuria Neurologic: No memory loss, No paralysis, No weakness, No numbness/tingling, No vertigo, No balance problems Psychiatric: No depression symptoms, No anhedonism, No anxiety, No insomnia, No substance abuse Heme: No abnormal bleeding/bruising, No clotting problems, No swollen lymph nodes, No night sweats Endo: No fatigue, No excessive thirst, No excessive urination Skin: No rash, No itch, No new/changing skin lesions, No color change, No bleeding Objective Vital Signs Date Time Temp Pulse Resp B/P (MAP) Pulse Ox O2 Delivery O2 Flow Rate FiO2 08/14/17 08:03 Room Air 2.0 Nasal Cannula 11/7/17 07:18 36.9 73 22 162/83 (109) 96 Room Air 08/14/17 07:08 77 20 94 Room Air 08/14/17 03:50 Nasal Cannula 2.0 08/14/17 01:54 96 08/14/17 01:19 Room Air BiPAP 08/14/17 00:02 82 22 152/76 94 08/13/17 23:18 85 08/13/17 22:51 89 22 144/74 94 Room Air 08/13/17 21:09 96 21 141/76 94 Room Air Nebulizer 08/13/17 19:56 71 20 136/79 99 Nebulizer 08/13/17 19:38 72 20 94 Room Air 08/13/17 19:28 70 08/13/17 19:27 94 Room Air 08/13/17 19:27 94 Room Air 08/13/17 18:58 81 16 180/85 94 Room Air 08/13/17 17:25 36.9 77 18 159/76 94 Room Air Physical Exam General Appearance: WD/WN, no apparent distress, + obese Eyes: normal inspection, PERRL, EOMI, sclerae normal ENT: normal ENT inspection, hearing grossly normal, pharynx normal Neck: supple, no adenopathy, thyroid normal, no JVD, no carotid bruits, trachea midline Respiratory/Chest: chest non-tender, normal breath sounds, no respiratory distress, no accessory muscle use, + decreased breath sounds, + wheezing Cardiovascular: regular rate, rhythm, no edema, no gallop, no JVD, no murmur Abdomen: normal bowel sounds, non tender, soft, no organomegaly, no pulsatile mass Extremities: normal range of motion, non-tender, normal inspection, no pedal edema, no calf tenderness, normal capillary refill, pelvis stable 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, no motor/sensory deficits, alert, normal mood/affect, oriented x 3 Skin: normal color, warm/dry, no rash Lymphatic: no adenopathy Laboratory Results Last 24 Hours Test 08/13/17 19:15 08/14/17 05:00 08/14/17 06:13 White Blood Count 8.18 K/uL 8.24 K/uL Red Blood Count 4.38 M/uL 4.43 M/uL Hemoglobin 13.6 g/dL 14.0 g/dL Hematocrit 40.0 % 40.7 % Mean Corpuscular Volume 91.3 fL 91.9 fL Mean Corpuscular Hemoglobin 31.1 pg 31.6 pg Mean Corpuscular Hemoglobin Concent 34.0 g/dl 34.4 g/dl Platelet Count 134 K/uL 126 K/uL Mean Platelet Volume 9.5 fL 9.9 fL Neutrophils (%) (Auto) 63.6 % 86.9 % Lymphocytes (%) (Auto) 26.4 % 8.4 % Monocytes (%) (Auto) 8.7 % 4.1 % Eosinophils (%) (Auto) 1.0 % 0.0 % Basophils (%) (Auto) 0.1 % 0.1 % Neutrophils # (Auto) 5.20 K/uL 7.16 K/uL Lymphocytes # (Auto) 2.16 K/uL 0.69 K/uL Monocytes # (Auto) 0.71 K/uL 0.34 K/uL Eosinophils # (Auto) 0.08 K/uL 0.00 K/uL Basophils # (Auto) 0.01 K/uL 0.01 K/uL RDW Standard Deviation 47.9 fL 48.2 fL RDW Coefficient of Variation 14.4 % 14.2 % Immature Granulocyte % (Auto) 0.2 % 0.5 % Immature Granulocyte # (Auto) 0.02 K/uL 0.04 K/uL Prothrombin Time 10.2 SECONDS Prothromb Time International Ratio 1.0 Activated Partial Thromboplast Time 24.5 SECONDS Partial Thromboplastin Ratio 0.9 Sodium Level 143 mmol/L 141 mmol/L Potassium Level 4.0 mmol/L 4.3 mmol/L Chloride Level 109 mmol/L 107 mmol/L Carbon Dioxide Level 27 mmol/L 24 mmol/L Anion Gap 6.0 mmol/L 10.0 mmol/L Blood Urea Nitrogen 24 mg/dl 20 mg/dl Creatinine 0.97 mg/dl 1.03 mg/dl Est Creatinine Clear Calc Drug Dose 61.0 ml/min 57.5 ml/min Estimated GFR () 86.3 80.3 Estimated GFR (Non- 74.5 69.3 BUN/Creatinine Ratio 24.9 19.1 Random Glucose 119 mg/dl 247 mg/dl Calcium Level 8.9 mg/dl 8.9 mg/dl Total Bilirubin 0.3 mg/dl Aspartate Amino Transf (AST/SGOT) 22 U/L Alanine Aminotransferase (ALT/SGPT) 43 U/L Alkaline Phosphatase 68 U/L Troponin I < 0.015 ng/ml Pro-B-Type Natriuretic Peptide 147 pg/ml Total Protein 6.4 gm/dl Albumin 3.4 gm/dl Globulin 3.0 gm/dl Albumin/Globulin Ratio 1.1 Influenza Type A (RT-PCR) Neg for Influ A Influenza Type A Antigen Neg for Influ A Influenza Type B Antigen Neg for Influ B Influenza Type B (RT-PCR) Neg for Influ B Assessment and Plan 77 year old admission on 08/13/2017 for possible asthma exacerbation with shortness of breath with failed outpatient treatment Possible Asthma exacerbation, Morbid obesity with a recent diagnosed obstructive sleep apnea on BiPAP machine at nighttime Deny history of smoking Stable and improving Continue Duonebs Q6H + Q2H PRN Continue Methylprednisone IV 60mg Q6H Continue Symbicort 160/4.5 2 puffs BID Continue guaifenesin 1200mg ER BID, incentive spirometry and flutter valve Follow-up sputum culture if possible Follow-up consult pulmonology given failure of outpatient treatment Possible pneumonia vs. atelectasis on left base, continue Continue Levaquin 750 mg IV daily Hypertension Coronary artery disease BISI GERD The above condition stable continue current care GI and DVT prophylaxis Continued [facility] stay due to: multiple IV medications needed Discharge planning: home
--- NOTE | 2017-08-14 11:30 | DIAGNOSTIC IMAGING REPORT ---
CHEST 2 VIEWS ROUTINE CLINICAL HISTORY: 77 years-old Male presenting with f/u pna. TECHNIQUE: PA and lateral views of the chest were obtained. COMPARISON: 08/13/2017. FINDINGS: Atherosclerosis of the aortic arch. Cardiac silhouette mildly enlarged. Mildly low lung volumes with hypoventilatory changes. Similar degree of bibasilar linear opacities, left greater than right. No new focal infiltrate. No large effusion or pneumothorax. Degenerative changes of the glenohumeral joints and spine. Upper abdomen normal. IMPRESSION: 1. Persistent bibasilar linear opacities, left greater than right, likely atelectasis or scarring. No new focal infiltrate. Electronically signed by: Christian Parkinson M.D. 08/14/2017 11:28 AM Dictated Date/Time: 08/14/2017 11:27 AM
[2017-08-14] MEDS ORDERED: LEVOFLOXACIN / D5W 750 MG in PREMIXED IN D5W 150 ML IV SCH (20:00)
[2017-08-15] VITALS (10 sets, daily range): BP systolic 152–173; BP diastolic 73–95; PULSE 60–102; TEMP 36.4–36.9; O2SAT 93–98
[2017-08-15] MEDS: METHYLPREDNISOLONE IV 60 MG in SYRINGE 0 ML IV SCH ×4 (05:56→23:48)
[2017-08-15 07:06] LABS: BUN/CREATININE RATIO 19.2 (10-20); CREATININE 0.99 mg/dl (0.60-1.40); MAGNESIUM 2.1 mg/dl (1.8-2.4); POTASSIUM 4.5 mmol/L (3.5-5.1)
[2017-08-15] MEDS: ALBUT/IPRATROP 3MG/0.5MG NEB 3 ML VIAL INH SCH ×4 (07:11→20:00)
[2017-08-15] MEDS: BUDESONIDE/FORMOTEROL FUMARATE 160/4.5 60 PUFFS/INHALER INH SCH ×2 (08:19→21:46)
[2017-08-15] MEDS: APIXABAN 2.5 MG TAB PO SCH ×2 (08:20→21:50)
[2017-08-15] MEDS: METOPROLOL TARTRATE 25 MG TAB PO SCH ×2 (08:20→21:50)
[2017-08-15] MEDS: GUAIFENESIN 600 MG TABCR PO SCH ×2 (08:20→21:50)
[2017-08-15] MEDS: RANITIDINE HCL 150 MG TAB PO SCH ×2 (08:20→21:50)
[2017-08-15] MEDS: LORATADINE 10 MG TAB PO SCH (08:21)
[2017-08-15] MEDS: FEXOFENADINE HCL 180 MG TAB PO SCH ×2 (08:21→21:49)
[2017-08-15] MEDS: ISOSORBIDE MONONITRATE 60 MG TABCR PO SCH (08:22)
[2017-08-15] MEDS ORDERED: LEVOFLOXACIN 750 MG TAB PO ONE (11:20)
--- NOTE | 2017-08-15 11:34 | Hospitalist Progress Note ---
Hospitalist Progress Note Date of Service Aug 15, 2017. (Alis Graves, PRASANTHC) Subjective Pt evaluation today including: conversation w/ patient, physical exam, chart review, lab review, review of studies, review of inpatient medication list Patient seen and evaluated. No acute events overnight. Reports at rest respiratory status largely baseline but still with REYNOLDS. Patient ambulated approx. 3-4 steps from closet to bed and was SOB and audibly wheezing. Isn't sure if he had a bronchoscopy in the past for exacerbations. States if he did it was "a lifetime ago" He would like to return home today but expressed that I would recommend he continue to stay since he failed outpatient steroids and still utilizing IV steroids. Constitutional: No fever, No chills Respiratory: + cough, + sputum (intermittent but mostly dry), + wheezing, + dyspnea on exertion, No dyspnea at rest Cardiovascular: No chest pain Abdomen: No pain, No nausea, No vomiting, No diarrhea, No constipation Musculoskeletal: + swelling (b/l lower extremities - chronic), No calf pain Heme: No abnormal bleeding/bruising (Alis Graves, KISHA-C) Medications Current Inpatient Medications Medications (Trade) Dose Ordered Sig/Guille Route Start Time Stop Time Status Last Admin Dose Admin Acetaminophen (Tylenol Tab) 650 mg Q4H PRN PO 08/13/17 23:00 09/12/17 22:59 Ondansetron HCl (Zofran Inj) 4 mg Q6H PRN IV 08/13/17 23:00 09/12/17 22:59 Budesonide/ Formoterol Fumarate (Symbicort 160/ 4.5 Inh) 2 puffs BID INH 08/14/17 08:00 09/13/17 08:59 08/15/17 08:19 2 PUFFS Fexofenadine HCl (Giuliana Tab) 180 mg BID PO 08/14/17 08:00 09/13/17 08:59 08/15/17 08:21 180 MG Isosorbide Mononitrate (Imdur Ext Rel Tab) 60 mg QAM PO 08/14/17 08:00 09/13/17 08:59 08/15/17 08:22 60 MG Loratadine (Claritin Tab) 10 mg DAILY PO 08/14/17 08:00 09/13/17 08:59 08/15/17 08:21 10 MG Metoprolol Tartrate (Lopressor Tab) 25 mg BID PO 08/14/17 08:00 09/13/17 08:59 08/15/17 08:20 25 MG Nitroglycerin (Nitrostat Tab) 0.4 mg UD PRN UT 08/13/17 23:00 09/12/17 22:59 Ranitidine HCl (zANTac TAB) 150 mg BID PO 08/14/17 08:00 09/13/17 08:59 08/15/17 08:20 150 MG Apixaban (Eliquis Tab) 5 mg BID PO 08/14/17 08:00 09/13/17 08:59 08/15/17 08:20 5 MG Albuterol/ Ipratropium (Duoneb) 3 ml QIDR INH 08/14/17 08:00 09/13/17 07:59 08/15/17 07:11 3 ML Guaifenesin (Mucinex Contr Rel Tab) 1,200 mg Q12H PO 08/14/17 09:00 09/13/17 08:59 08/15/17 08:20 1,200 MG Methylprednisolone Sodium Succinate 60 mg/Syringe 0.96 ml @ 1.5 mls/min Q6H IV 08/14/17 06:00 09/13/17 05:59 08/15/17 05:56 1.5 MLS/MIN Miscellaneous (Iv Fluids Completed) 1 ea PRN PRN N/A 08/14/17 01:45 08/14/18 01:44 Levofloxacin 750 mg/Prmx 150 ml @ 100 mls/hr Q24H IV 08/14/17 20:00 08/20/17 19:59 08/14/17 20:00 100 MLS/HR (Alis Graves, HARLEEN) Objective Vital Signs Date Time Temp Pulse Resp B/P (MAP) Pulse Ox O2 Delivery O2 Flow Rate FiO2 08/15/17 08:16 Room Air 08/15/17 08:00 95 Room Air 08/15/17 07:50 36.5 78 18 160/93 (115) 95 Room Air 08/15/17 07:13 60 18 98 Nasal Cannula 3.0 08/15/17 00:08 36.4 67 18 165/95 (118) 96 3.0 08/15/17 00:00 Nasal Cannula 3.0 08/14/17 23:59 36.9 66 20 152/82 (105) 96 2.0 08/14/17 20:00 Nasal Cannula 3.0 08/14/17 19:07 75 18 95 Nasal Cannula 2.0 08/14/17 16:55 Room Air 2.0 Nasal Cannula 08/14/17 15:38 78 20 93 Nasal Cannula 2.0 08/14/17 15:02 36.5 66 20 138/77 (97) 95 Room Air (Alis Graves PA-C) Physical Exam General Appearance: WD/WN, + mild distress (respiratory with ambulation) Eyes: sclerae normal ENT: hearing grossly normal Neck: supple, no JVD, trachea midline Respiratory/Chest: + respiratory distress (mild with ambulation), + rhonchi ( at bases b/l), + wheezing (diffuses - expiratory) Cardiovascular: regular rate, rhythm, no gallop, no murmur Abdomen: normal bowel sounds, non tender, soft Extremities: + swelling (1+ pitting edema b/l) Neurologic/Psychiatric: alert, oriented x 3 Skin: normal color, warm/dry (Alis Graves PA-C) Laboratory Results Last 24 Hours Test 08/15/17 06:06 Sodium Level 141 mmol/L Potassium Level 4.5 mmol/L Chloride Level 108 mmol/L Carbon Dioxide Level 26 mmol/L Anion Gap 6.0 mmol/L Blood Urea Nitrogen 19 mg/dl Creatinine 0.99 mg/dl Est Creatinine Clear Calc Drug Dose 59.8 ml/min Estimated GFR () 84.2 Estimated GFR (Non- 72.6 BUN/Creatinine Ratio 19.2 Random Glucose 236 mg/dl Calcium Level 9.0 mg/dl Magnesium Level 2.1 mg/dl Chemistry Specimen Hemolysis (Alis Graves PA-C) Assessment and Plan 77 year old admission on 08/13/2017 for possible asthma exacerbation with shortness of breath with failed outpatient treatment Possible Asthma vs COPD Exacerbation: - Recently Dx with BISI on BiPAP at night - denies smoking history - not yet baseline with ambulation - Methylprednisolone 60 mg IV Q6H - Duonbes GUILLE and PRN and Symbicort 2 puffs BID - Mucinex 1200 BID - Consult pulmonology - appreciate recommendations Possible Pneumonia: - Levaquin 750 mg po daily H/O Pulmonary Embolism: - Eliquis 5 mg BID CAD/HTN: - Imdur 60 mg daily and Lopressor 25 mg BID DVT Prophylaxis: Eliquis Disposition: - Improving but still significantly wheezy and REYNOLDS - will reassess later today but anticipate keeping at least another day if not longer Continued [facility] stay due to: multiple IV medications needed Discharge planning: home (Alis Graves, HARLEEN) i personally examined pt and verified all de [place] ve[place] points w A [place] PAC feeling better but still quite wheezy and a lot of REYNOLDS vitals noted nad breathing unlabored no pallor or icterus, diffuse wheeze on exp , but reasonable air entry insp. somewhat diminished air entry base L did not exert for me but HARLEEN noted rather significant REYNOLDS with even a few feet of ambulation present during my visit - updated, she agrees w current plan of care (as does he, reluctantly, since he was hoping to go home) wheezing/SOB - ?COPD vs asthma -had been on prednisone as outpt - failed. CXR and lung exam favor possible small LLL infiltrate as culprit -- definitely need atypical coverage but with questionable pneumonia that would definitely define clinical picture - continue levaquin -continue supportive care, hopefully home in 1-2 days but REYNOLDS/wheezing today more than appears would be safe for home (Rahul Dixon D.O.)
[2017-08-16] VITALS (11 sets, daily range): BP systolic 156–174; BP diastolic 69–93; PULSE 64–106; TEMP 36.5–36.6; O2SAT 93–98
[2017-08-16] MEDS: METHYLPREDNISOLONE IV 60 MG in SYRINGE 0 ML IV SCH (05:52)
[2017-08-16] MEDS: ALBUT/IPRATROP 3MG/0.5MG NEB 3 ML VIAL INH SCH ×4 (07:14→19:39)
[2017-08-16] MEDS: BUDESONIDE/FORMOTEROL FUMARATE 160/4.5 60 PUFFS/INHALER INH SCH ×2 (07:48→19:48)
[2017-08-16] MEDS: FEXOFENADINE HCL 180 MG TAB PO SCH ×2 (07:48→19:50)
[2017-08-16] MEDS: LEVOFLOXACIN 750 MG TAB PO SCH (07:48)
[2017-08-16] MEDS: RANITIDINE HCL 150 MG TAB PO SCH ×2 (07:48→19:49)
[2017-08-16] MEDS: METOPROLOL TARTRATE 25 MG TAB PO SCH ×2 (07:48→19:49)
[2017-08-16] MEDS: ISOSORBIDE MONONITRATE 60 MG TABCR PO SCH (07:49)
[2017-08-16] MEDS: LORATADINE 10 MG TAB PO SCH (07:49)
[2017-08-16] MEDS: GUAIFENESIN 600 MG TABCR PO SCH ×2 (07:49→19:49)
[2017-08-16] MEDS: APIXABAN 2.5 MG TAB PO SCH ×2 (07:49→19:50)
[2017-08-16] MEDS ORDERED: GUAIFENESIN/CODEINE 100MG/10MG 5ML UDC PO ONE (12:15)
--- NOTE | 2017-08-16 15:24 | Hospitalist Progress Note ---
Hospitalist Progress Note Date of Service Aug 16, 2017. Subjective Pt evaluation today including: conversation w/ patient, conversation w/ family , physical exam, chart review, lab review, review of studies, review of inpatient medication list Patient seen and evaluated. No acute events overnight. Continues to have a dry hacking cough that is sometimes productive of sputum. Still not at baseline respiratory king. Is utilizing supplemental O2. Has audible wheezing and REYNOLDS. Did develop chest pain due to significant coughing today Constitutional: No fever, No chills Respiratory: + cough, + sputum (intermittent but rare), + wheezing, + dyspnea on exertion, + dyspnea at rest, No hemoptysis Cardiovascular: + chest pain Abdomen: No pain, No nausea, No vomiting, No diarrhea, No constipation Musculoskeletal: No swelling, No calf pain Male : No dysuria Heme: No abnormal bleeding/bruising Skin: No rash Medications Current Inpatient Medications Medications (Trade) Dose Ordered Sig/Sam Route Start Time Stop Time Status Last Admin Dose Admin Acetaminophen (Tylenol Tab) 650 mg Q4H PRN PO 08/13/17 23:00 09/12/17 22:59 Ondansetron HCl (Zofran Inj) 4 mg Q6H PRN IV 08/13/17 23:00 09/12/17 22:59 Budesonide/ Formoterol Fumarate (Symbicort 160/ 4.5 Inh) 2 puffs BID INH 08/14/17 08:00 09/13/17 08:59 08/16/17 07:48 2 PUFFS Fexofenadine HCl (Giuliana Tab) 180 mg BID PO 08/14/17 08:00 09/13/17 08:59 08/16/17 07:48 180 MG Isosorbide Mononitrate (Imdur Ext Rel Tab) 60 mg QAM PO 08/14/17 08:00 09/13/17 08:59 08/16/17 07:49 60 MG Loratadine (Claritin Tab) 10 mg DAILY PO 08/14/17 08:00 09/13/17 08:59 08/16/17 07:49 10 MG Metoprolol Tartrate (Lopressor Tab) 25 mg BID PO 08/14/17 08:00 09/13/17 08:59 08/16/17 07:48 25 MG Nitroglycerin (Nitrostat Tab) 0.4 mg UD PRN UT 08/13/17 23:00 09/12/17 22:59 Ranitidine HCl (zANTac TAB) 150 mg BID PO 08/14/17 08:00 09/13/17 08:59 08/16/17 07:48 150 MG Apixaban (Eliquis Tab) 5 mg BID PO 08/14/17 08:00 09/13/17 08:59 08/16/17 07:49 5 MG Albuterol/ Ipratropium (Duoneb) 3 ml QIDR INH 08/14/17 08:00 09/13/17 07:59 08/16/17 15:13 3 ML Guaifenesin (Mucinex Contr Rel Tab) 1,200 mg Q12H PO 08/14/17 09:00 09/13/17 08:59 08/16/17 07:49 1,200 MG Miscellaneous (Iv Fluids Completed) 1 ea PRN PRN N/A 08/14/17 01:45 08/14/18 01:44 Levofloxacin (Levaquin Tab) 750 mg DAILY@11 PO 08/16/17 11:00 08/20/17 10:59 08/16/17 07:48 750 MG Prednisone (PredniSONE TAB) 40 mg DAILY PO 08/16/17 08:00 09/15/17 07:59 08/16/17 10:08 40 MG Codeine Phosphate/ Guaifenesin (Robitussin-AC Sugar Free Syrup) 5 ml Q6H PRN PO 08/16/17 12:00 09/15/17 11:59 Objective Vital Signs Date Time Temp Pulse Resp B/P (MAP) Pulse Ox O2 Delivery O2 Flow Rate FiO2 08/16/17 15:13 78 20 93 Nasal Cannula 2.0 08/16/17 15:11 36.6 79 22 156/69 (98) 96 Nasal Cannula 2.0 08/16/17 11:18 69 165/93 (117) 98 08/16/17 11:14 64 20 96 Nasal Cannula 2.0 08/16/17 11:09 Nasal Cannula 2.5 08/16/17 09:30 Room Air 2.0 Nasal Cannula 08/16/17 07:58 36.5 68 24 174/82 (112) 98 Nasal Cannula 08/16/17 07:52 72 172/77 (108) 08/16/17 07:14 64 20 98 Nasal Cannula 2.0 08/16/17 00:10 Nasal Cannula 2.0 08/15/17 23:10 36.6 72 20 152/78 (102) 95 Nasal Cannula 2.0 08/15/17 20:38 90 20 93 Room Air 08/15/17 16:00 Room Air Physical Exam General Appearance: WD/WN, no apparent distress Neck: supple, no JVD, trachea midline Respiratory/Chest: no respiratory distress, no accessory muscle use, + rhonchi , + wheezing (expiratory) Cardiovascular: regular rate, rhythm, no gallop, no murmur Abdomen: normal bowel sounds, non tender, soft Extremities: no pedal edema, no calf tenderness Neurologic/Psychiatric: alert Skin: normal color, warm/dry Assessment and Plan 77 year old admission on 08/13/2017 for possible asthma exacerbation with shortness of breath with failed outpatient treatment Possible Asthma vs COPD Exacerbation: - Recently Dx with BISI on BiPAP at night - denies smoking history - not yet baseline with ambulation and is utilizing supplemental O2 today - Prednisone 40 mg daily and likely needs long taper - Duonbes SAM and PRN and Symbicort 2 puffs BID - Mucinex 1200 BID and Guaifenesin/Codeine PRN - Consult pulmonology - appreciate recommendations Possible Pneumonia: - Levaquin 750 mg po daily Hypoglycemia: - Will assess A1c - Glucose in mid-200s and likely the result of steroids - continue to monitor as steroids will be tapered - Can place liberal SSI if necessary H/O Pulmonary Embolism: - Eliquis 5 mg BID CAD/HTN: - Imdur 60 mg daily and Lopressor 25 mg BID DVT Prophylaxis: Eliquis Disposition: - Improving but still significantly wheezy and REYNOLDS - continues to have dry non- productive cough - possible D/C 2-3 days Continued [facility] stay due to: other (respiratory status) Discharge planning: home
--- NOTE | 2017-08-16 18:54 | Pulmonary Consultation ---
History General Date of Service: Aug 16, 2017. Stated Complaint: Copd Exacerbation HPI The patient is a 77 year old male who presents to [facility] with complaints of Copd Exacerbation. The patient's primary care provider is Brad Mason III, CRNP. Mr. Daniel is a 77-year-old male with who carries the diagnosis of moderate persistent asthma, moderate sleep apnea on nocturnal oxygen, coronary artery disease, GERD, pulmonary emboli on a Eliquis for 2 months, who presents with 2- 3 week history of difficulty breathing. He states that his symptoms associated with chest tightness, cough with whitish to lopez productive sputum and pleuritic chest pain. He denies any fevers, chills, night sweats, weight loss or hemoptysis. He denies any difficulties with ambulating, but noticed over the last several days prior to admission he was more dyspneic than usual. Patient was referred from his primary care physician after failing a steroid taper and now is alleviation of symptoms with inhalers. She is home currently medications include Eliquis 5 mg by mouth daily, Symbicort 160/4.5 one puff by mouth twice a day, Combivent Respimat one puff inhaled twice a day, ipratropium- albuterol treatment inhaled every 4-6 hours, loratadine 10 mg by mouth daily, Zantac 300 mg by mouth daily and prednisone 40 milligrams daily. He follows with Dr. pressley in pulmonary clinic. We will reassess on review of outpatient records it appears the patient has had asthma for about 15 years his main complaint is chronic cough. His symptoms have progressed since August 2016. And has been treated multiple times for acute bronchitis versus asthma exacerbation. Initial vitals in the ER on 08/13/2017 showed a temperature of 36.9, pulse 77, respiratory rate 18, blood pressure 159/76, saturating 94% on room air. Laboratory data on admission showed a white blood cell count of 8, hemoglobin of 13, platelet count 134. Laboratory data showed a sodium 143, potassium 4, chloride 109, carbon dioxide 27, BUN 24, creatinine 0.97. Random glucose 119, calcium 8.9, troponin less than 0.015, BNP 147. LFTs were within normal limits. Influenza a and B PCR was negative. He still has harsh cough associated with expiratory wheezing. He denies any chest pain or shortness of breath. He is able to walk around and ambulate with significant dyspnea. He does have lower extremity edema but denies any orthopnea, paroxysmal nocturnal dyspnea. He denies any sick contacts or recent travel. His current medications include Levaquin 750 mg daily, prednisone 40 mg daily, guaifenesin 1200 mg every 12 hours, Symbicort 160/4.5 inhalation, albuterol ipratropium nebulizer every 4-6 hours, codeine/was or sinus and cough syrup every 6 hours when necessary for cough, Zantac for GERD and loratadine and Giuliana for rhinitis.. Historian: patient, other (EMR) Review of Systems Constitutional: reports: as stated in HPI Eyes: reports: as stated in HPI ENT: reports: as stated in HPI Cardiovascular: reports: as stated in HPI Respiratory: reports: as stated in HPI Gastrointestinal: reports: as stated in HPI Genitourinary - Male: reports: as stated in HPI Musculoskeletal: reports: as stated in HPI Integumentary: reports: as stated in HPI Neurologic: reports: as stated in HPI Psychiatric: reports: as stated in HPI Endocrine: as stated in HPI Hematologic / Lymphatic: as stated in HPI Allergic / Immunologic: as stated in HPI All Other Symptoms All Other Systems: Reviewed and Negative Past Medical History Past Medical History: Active Problems 1. Abdominal pain, epigastric (R10.13) 2. Anxiety (F41.9) 3. Asthma, moderate persistent (J45.40) 4. Carotid artery stenosis (I65.29) 5. Cerebral ischemia (I67.82) 6. Ceruminosis, right (H61.21) 7. Cervical disc disorder (M50.90) 8. Chronic cough (R05) 9. Denied: History of Coronary Artery Disease 10. Cough (R05) 11. Dementia (F03.90) 12. Encounter for screening for diabetes mellitus (Z13.1) 13. GERD without esophagitis (K21.9) 14. Headache (R51) 15. Hearing loss (H91.90) 16. Hemorrhoid (K64.9) 17. Hiatal hernia (K44.9) 18. History of malignant neoplasm of prostate (Z85.46) 19. Hoarseness (R49.0) 20. Hyperlipidemia (E78.5) 21. Hypertension (I10) 22. Inhibited sexual excitement (F52.8) 23. Insomnia (G47.00) 24. Iron deficiency anemia (D50.9) 25. 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 Neoplasm of prostate, malignant (C61) 27. Obstructive sleep apnea (G47.33) 28. Periodic limb movement disorder (G47.61) 29. Primary osteoarthritis of right shoulder (M19.011) 30. Pulmonary embolism (I26.99) 31. Sensorineural hearing loss (SNHL) of both ears (H90.3) 32. Severe persistent asthma, poorly-controlled (J45.50) 33. Sleep related hypoxia (G47.34) 34. Vitamin B12 deficiency (E53.8) Past Medical History 1. History of Abdominal pain, lower (R10.30) 2. History of Abnormal blood chemistry (R79.9) 3. History of Actinic keratosis (L57.0) 4. History of Asthma exacerbation (J45.901) 5. History of Asthmatic bronchitis (J45.909) 6. History of Asthmatic bronchitis (J45.909) 7. History of Asthmatic bronchitis with exacerbation (J45.901) 8. History of Atypical nevus (D22.9) 9. History of Bite by nonvenomous insect of trunk 10. Denied: History of Coronary Artery Disease 11. History of Cough (R05) 12. History of abdominal pain (Z87.898) 13. History of carpal tunnel syndrome (Z86.69) 14. History of chest pain (Z87.898) 15. History of complications due to general anesthesia (Z91.89) 16. History of diarrhea (Z87.898) 17. History of dysuria (Z87.898) 18. History of fatigue (Z87.898) 19. History of hiatal hernia (Z87.19) 20. History of hyperglycemia (Z86.39) 21. History of impacted cerumen (Z86.69) 22. History of malignant neoplasm of prostate (Z85.46) 23. History of neck pain (Z87.39) 24. History of neutropenia (Z86.2) 25. History of polyarthritis (Z87.39) 26. History of seborrheic keratosis (Z87.2) 27. History of shortness of breath (Z87.898) 28. History of thrombocytopenia (Z86.2) 29. History of urinary frequency (Z87.898) 30. History of wheezing (Z87.898) 31. History of Influenza vaccine needed (Z23) 32. History of Laceration of right hand with infection (S61.411A,L08.9) 33. History of Left hip pain (M25.552) 34. History of Melena (K92.1) 35. History of Need for pneumococcal vaccination (Z23) 36. History of Need for Tdap vaccination (Z23) 37. History of Nevus (D22.9) 38. History of Pain in joint of right shoulder (M25.511) 39. History of Preop cardiovascular exam (Z01.810) 40. History of Respiratory distress (R06.00) 41. History of Snoring (R06.83) 42. Status post fall (Z91.81) Acute 43. History of Acute diverticulitis (K57.92) 44. History of Acute electrocardiogram changes (R94.31) 45. History of COPD with acute bronchitis (J44.0) 46. History of acute bronchitis (Z87.09) Past Medical History: high cholesterol, hypertension, osteoarthritis Past Surgical History: Surgical History 1. History of Colonoscopy (Fiberoptic) 2. History of Colonoscopy (Fiberoptic) Screening 3. History of Hernia Repair 4. History of Prostatectomy Retropubic Radical With Nerve Sparing 5. History of Surgery Vas Deferens Vasectomy 6. History of Total Hip Replacement Past Surgical History: tonsillectomy Family History FH: diabetes mellitus FH: gallbladder disease FH: heart disease Hypertension Kidney disease Kidney stones Myocardial infarction Stroke Family History 1. Family history of cardiac disorder (Z82.49) 2. Denied: Family history of malignant neoplasm of breast 3. Denied: Family history of malignant neoplasm of prostate 4. Family history of myocardial infarction (Z82.49) 5. Denied: Family history of Ovarian cancer Father 6. Denied: Family history of malignant neoplasm of breast 7. Denied: Family history of malignant neoplasm of prostate 8. Denied: Family history of Ovarian cancer Sibling 9. Denied: Family history of malignant neoplasm of breast 10. Denied: Family history of malignant neoplasm of prostate 11. Denied: Family history of Ovarian cancer Sister 12. Family history of Diabetes Mellitus Grandmother 13. Family history of cardiac disorder (Z82.49) 14. Family history of hypertension (Z82.49) Grandfather 15. Family history of cardiac disorder (Z82.49) 16. Family history of hypertension (Z82.49) Family History 17. Family history of Acute Myocardial Infarction 18. Denied: Family history of Colon Cancer 19. Denied: Family history of Crohn's (Granulomatous) Colitis 20. Denied: Family history of Esophageal Cancer 21. Denied: Family history of malignant neoplasm of breast 22. Denied: Family history of malignant neoplasm of prostate 23. Denied: Family history of Ovarian cancer 24. Family history of Stroke Syndrome 25. Denied: Family history of Ulcerative Colitis Social History His lifetime nonsmoker. Lives with . Denies any alcohol use or illicit drug use. He denies any occupational exposures. 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 Social History Always uses seat belt Dental care, regularly Exercises 5 to 6 times per week (Z78.9) Living situation Never a smoker Never used moist powdered tobacco (Z78.9) No drug use No secondhand smoke exposure (Z78.9) Occupation Rarely consumes alcohol (Z78.9) Retired Special needs due to hearing impairment (H91.90) Denied: History of Special needs due to visual impairment Hx Tobacco Use In Past Year?: No Smoking Status: Never Smoker Alcohol: never Marital status: Housing status: lives with significant other Occupational Status: retired Immunizations History of Influenza Vaccine: Yes Influenza Vaccine Date: Jul 05, 2013 History of Tetanus Vaccine?: Unknown History of Pneumococcal: Yes Pneumococcal Date: Oct 04, 2011 History of Hepatitis B Vaccine: Unknown History of MDRO History of MDRO: No Allergies Coded Allergies: Ibuprofen (Verified Allergy, Mild, ULCERS, 08/13/17) Current Medications Reported Home Medications Medications Dose Route/Sig Max Daily Dose Days Date Category Dose Instructions Prednisone 20 Mg Tab 40 Mg PO DAILY 07/26/17 Reported X 5 DAYS Eliquis (Apixaban) 5 Mg Tab 5 Mg PO BID 30 05/15/17 Rx Duoneb (Ipratropium-Albuterol) 3 Ml Nebu 1 Treatment INH QID 05/14/17 Reported Claritin (Loratadine) 10 Mg Tab 10 Mg PO DAILY 02/03/17 Reported Mucinex Allergy (Fexofenadine HCl) 180 Mg Tab 180 Mg PO BID 02/03/17 Reported Symbicort 160/4.5 Inhaler (Budesonide/Formoterol Fumarate) 120 Puffs/ Aero 1 Puff PO BID 01/22/16 Reported Combivent Respimat (Ipratropium-Albuterol) 1 Aer Aer 1 Puffs INH BID 01/22/16 Reported Lopressor (Metoprolol Tartrate) 50 Mg Tab 25 Mg PO BID 10/13/14 Reported Imdur Ext Rel (Isosorbide Mononitrate) 60 Mg Ertab 60 Mg PO QAM 05/26/14 Reported Nitrostat (Nitroglycerin) 0.4 Mg Sub 0.4 Mg UT UD PRN 10/04/13 Reported Zantac (Ranitidine Hcl) 150 Mg Tab 300 Mg PO BID 07/23/12 Reported Physical Physical Exam Vital Signs: Date Time Temp Pulse Resp B/P (MAP) Pulse Ox O2 Delivery O2 Flow Rate FiO2 08/16/17 15:47 Room Air 2.0 Nasal Cannula 08/16/17 15:13 89 22 93 Nasal Cannula 2.0 08/16/17 15:11 36.6 79 22 156/69 (98) 96 Nasal Cannula 2.0 08/16/17 11:18 69 165/93 (117) 98 08/16/17 11:14 64 20 96 Nasal Cannula 2.0 08/16/17 11:09 Nasal Cannula 2.5 08/16/17 09:30 Room Air 2.0 Nasal Cannula 08/16/17 07:58 36.5 68 24 174/82 (112) 98 Nasal Cannula 08/16/17 07:52 72 172/77 (108) 08/16/17 07:14 64 20 98 Nasal Cannula 2.0 08/16/17 00:10 Nasal Cannula 2.0 08/15/17 23:10 36.6 72 20 152/78 (102) 95 Nasal Cannula 2.0 08/15/17 20:38 90 20 93 Room Air General Appearance: WD/WN, NO APPARENT DISTRESS, obese Head: NORMOCEPHALIC, ATRAUMATIC Eyes: PERRLA, NO DISCHARGE, EOMI, SCLERAE NORMAL ENT: NORMAL MOUTH EXAM, NORMAL THROAT EXAM Neck: NORMAL RANGE OF MOTION, NO TENDERNESS, TRACHEA MIDLINE, NO STRIDOR Respiratory: NO RESPIRATORY DISTRESS, wheezing (harsh cough) Cardiovasular: REGULAR RATE/RHYTHM, NORMAL S1S2 Abdomen: NON TENDER, NORMAL BOWEL SOUNDS, NO REBOUND Upper Extremities: NO EDEMA, NO DEFORMITY, NORMAL ROM, other (no clubbing, no cyanosis) Lower Extremities: NO DEFORMITY, NORMAL ROM Edema: Bilateral LE (2+) Neuro: ALERT, ORIENTED x 3, NORMAL MOTOR EXAM, NORMAL SENSATION, NORMAL SPEECH , NORMAL MEMORY Psychiatric: NORMAL AFFECT, NO SUICIDAL IDEATION, CONTRACTS FOR SAFETY Diagnostics Diagnostic Radiology CHEST ONE VIEW PORTABLE CLINICAL HISTORY: EVALUATE RESPIRATORY DISTRESS.DYSPNEA dyspnea COMPARISON STUDY: 07/26/2017 FINDINGS: Mild cardiomegaly. Focal atelectasis left base. Diaphragms smooth. Lungs are clear. IMPRESSION: Moderate cardiomegaly. Platelike atelectasis left base. The above report was generated using voice recognition software. It may contain grammatical, syntax or spelling errors. (CHEST FOR PE) ANGIO WITH 05/14/2017 CT DOSE: 579.25 mGy.cm HISTORY: Chest pain dyspnea TECHNIQUE: Multiaxial CT images of the chest were performed following the intravenous administration of contrast to evaluate the pulmonary arteries. Maximal intensity projection images were also obtained. A dose lowering technique was utilized adhering to the principles of ALARA. COMPARISON STUDY: 04/24/2016 FINDINGS: Limited study due to considerable patient somatic and respiratory motion. Lung bases are regions are considered nondiagnostic for evaluated despite apparent in homogeneity of enhancement. The central pulmonary vessels enhance appropriately. There is suggestion of a right middle lobe second order filling defect best seen transaxial image 171 as well as 175. Bibasilar interstitial/atelectatic change mild stable splenomegaly compared to the prior study. Considerable degenerative change thoracic spine. No acute compression deformity. IMPRESSION: 1. Limited study due to respiratory and somatic motion. 2. Study appears to be positive for at least 2 second-order right midlung emboli and possibly several third order basilar small emboli. 3. No evidence for main or central pulmonary embolus. 4. Basilar chronic interstitial and atelectatic change 5. Mild cardia megaly. VENOUS DOPPLER LW EXT BILAT 05/14/2017 HISTORY: Pain. Edema. pulmonary embolism, assess for DVTs COMPARISON STUDY: None. FINDINGS: There is normal compressibility, flow, and augmentation within the bilateral lower extremity deep venous systems. IMPRESSION: No DVT within the right or left lower extremity. Impression Assessment and Plan Moderate persistent Asthma with exacerbation Moderate severe obstructive sleep apnea Diastolic dysfunction History of Pulmonary embolism Mr. Brobeck continues to have significant wheezing associated with harsh cough and dyspnea. Appears the patient has had symptoms since February of this year intermittently, associated with whitish to yellowish sputum production. He is unaware of known triggers. He denies any sick contacts. He has chronic rhinitis and GERD which may be contributing to some of his symptoms. He is started on radha inhibitor which could also contribute to her chronic cough. Patient has been on long-standing steroids as an outpatient and was treated with Solu-Medrol for the last 2 days. In the meantime I will continue with prednisone taper Continue with supplemental oxygen at night for obstructive sleep apnea. Continue with albuterol every 4-6 hours when necessary. Continue with Symbicort 160/4.52 puffs twice a day. At this time I think he may benefit from a long-acting muscarinic antagonist like Spiriva. I will send IgE levels as well as sputum cultures. Obtain peak flow. Will give a trial of Tessalon Perles. Continue with DVT the treatment with Eliquis. Lower extremities are edematous, he may benefit from mild diureses. I appreciate the consult.
[2017-08-16] MEDS ORDERED: BENZONATATE 100MG CAP PO PRN (19:00)
[2017-08-16] MEDS: BENZONATATE 100MG CAP PO SCH (20:01)
[2017-08-17] VITALS (8 sets, daily range): BP systolic 159–167; BP diastolic 84–104; PULSE 61–75; TEMP 36.5; O2SAT 94–97
[2017-08-17] MEDS: GUAIFENESIN/CODEINE 100MG/10MG 5ML UDC PO PRN ×2 (00:19→07:47)
[2017-08-17 04:58] LABS: CREATININE 1.05 mg/dl (0.60-1.40)
[2017-08-17 06:19] LABS: ESTIMATED AVERAGE GLUCOSE 123 mg/dl; HA1C FLAG Normal (Normal)
[2017-08-17] MEDS: ALBUT/IPRATROP 3MG/0.5MG NEB 3 ML VIAL INH SCH ×4 (07:34→19:55)
[2017-08-17] MEDS: LEVOFLOXACIN 750 MG TAB PO SCH (07:35)
[2017-08-17] MEDS: BENZONATATE 100MG CAP PO SCH ×3 (07:36→21:19)
[2017-08-17] MEDS: RANITIDINE HCL 150 MG TAB PO SCH ×2 (07:36→21:19)
[2017-08-17] MEDS: BUDESONIDE/FORMOTEROL FUMARATE 160/4.5 60 PUFFS/INHALER INH SCH ×2 (07:36→21:16)
[2017-08-17] MEDS: LORATADINE 10 MG TAB PO SCH (07:36)
[2017-08-17] MEDS: ISOSORBIDE MONONITRATE 60 MG TABCR PO SCH (07:36)
[2017-08-17] MEDS: APIXABAN 2.5 MG TAB PO SCH ×2 (07:36→21:18)
[2017-08-17] MEDS: METOPROLOL TARTRATE 25 MG TAB PO SCH ×2 (07:36→21:19)
[2017-08-17] MEDS: FEXOFENADINE HCL 180 MG TAB PO SCH ×2 (07:36→21:18)
[2017-08-17] MEDS: GUAIFENESIN 600 MG TABCR PO SCH ×2 (07:36→21:20)
[2017-08-17] MEDS: TIOTROPIUM BROMIDE 5 PUFF/90 MCG INH INH SCH (07:47)
[2017-08-17] MEDS ORDERED: FUROSEMIDE 20 MG TAB PO ONE (09:45)
--- NOTE | 2017-08-17 17:34 | Pulmonology Progress Note ---
Pulmonary Progress Note Date of Service Aug 17, 2017. Attending Dr. Calderon Subjective Patient seen and examined. He is out of bed to chair. States that he is feeling better. He still has cough associated with wheezing. He is ambulating in the halls without difficulty. Patient is to have some coughing with eating pudding this morning. is at bedside. He is requesting to go home. He is having intermittent episodes of confusion while she is present. Per , his dementia is progressing. Objective Vital signs reviewed. MAXIMUM TEMPERATURE 36.5, blood pressure 159/84 to 167/ 104, pulse 61-75, respiratory rate 16-20, pulse oximetry 94-97% on 2 L/m nasal cannula. Gen.: Awake alert oriented 3, no acute respiratory distress. Speaking in full sentences without use of accessory muscles of respiration. CVS: S1-S2, regular rate and rhythm Lungs: Bilateral wheezing with prolonged expiratory phase. Occasional coughing. Intermittently. Abdomen: Obese, nontender,protuberant abdomen, bowel sounds positive Extremities: Trace lower extremity edema, no cyanosis, no clubbing Labs reviewed. Creatinine 1.05. IgE pending Imaging reviewed. Medications reviewed. Assessment & Plan Moderate persistent Asthma with exacerbation Moderate severe obstructive sleep apnea Diastolic dysfunction History of Pulmonary embolism Mr. Daniel appears to be mildly improved from a respiratory standpoint. Continue with prednisone daily. Continue with supplemental oxygen at night for obstructive sleep apnea. Continue with albuterol every 4-6 hours when necessary. Continue with Symbicort 160/4.52 puffs twice a day. Continue with Spiriva Spiriva. Follow-up IgE. Continue with Tessalon Perles. Continue with DVT the treatment with Eliquis. Continue with Lasix for lower extremity edema. He may benefit from speech and swallow evaluation to rule out aspiration. I appreciate the consult. Data Medications: Current Inpatient Medications Medications (Trade) Dose Ordered Sig/Guille Route Start Time Stop Time Status Last Admin Dose Admin Acetaminophen (Tylenol Tab) 650 mg Q4H PRN PO 08/13/17 23:00 09/12/17 22:59 Ondansetron HCl (Zofran Inj) 4 mg Q6H PRN IV 08/13/17 23:00 09/12/17 22:59 Budesonide/ Formoterol Fumarate (Symbicort 160/ 4.5 Inh) 2 puffs BID INH 08/14/17 08:00 09/13/17 08:59 08/17/17 07:36 2 PUFFS Fexofenadine HCl (Giuliana Tab) 180 mg BID PO 08/14/17 08:00 09/13/17 08:59 08/17/17 07:36 180 MG Isosorbide Mononitrate (Imdur Ext Rel Tab) 60 mg QAM PO 08/14/17 08:00 09/13/17 08:59 08/17/17 07:36 60 MG Loratadine (Claritin Tab) 10 mg DAILY PO 08/14/17 08:00 09/13/17 08:59 08/17/17 07:36 10 MG Metoprolol Tartrate (Lopressor Tab) 25 mg BID PO 08/14/17 08:00 09/13/17 08:59 08/17/17 07:36 25 MG Nitroglycerin (Nitrostat Tab) 0.4 mg UD PRN UT 08/13/17 23:00 09/12/17 22:59 Ranitidine HCl (zANTac TAB) 150 mg BID PO 08/14/17 08:00 09/13/17 08:59 08/17/17 07:36 150 MG Apixaban (Eliquis Tab) 5 mg BID PO 08/14/17 08:00 09/13/17 08:59 08/17/17 07:36 5 MG Albuterol/ Ipratropium (Duoneb) 3 ml QIDR INH 08/14/17 08:00 09/13/17 07:59 08/17/17 15:23 3 ML Guaifenesin (Mucinex Contr Rel Tab) 1,200 mg Q12H PO 08/14/17 09:00 09/13/17 08:59 08/17/17 07:36 1,200 MG Miscellaneous (Iv Fluids Completed) 1 ea PRN PRN N/A 08/14/17 01:45 08/14/18 01:44 Levofloxacin (Levaquin Tab) 750 mg DAILY@11 PO 08/16/17 11:00 08/20/17 10:59 08/17/17 07:35 750 MG Prednisone (PredniSONE TAB) 40 mg DAILY PO 08/16/17 08:00 09/15/17 07:59 08/17/17 07:36 40 MG Codeine Phosphate/ Guaifenesin (Robitussin-AC Sugar Free Syrup) 5 ml Q6H PRN PO 08/16/17 12:00 09/15/17 11:59 08/17/17 07:47 5 ML Tiotropium [place] (Spiriva Handihaler Inhaler) 1 puff QAM INH 08/17/17 08:00 09/16/17 07:59 08/17/17 07:47 1 PUFF Benzonatate (Tessalon Perles Cap) 100 mg TID PO 08/16/17 20:00 09/15/17 19:59 08/17/17 14:26 100 MG Benzonatate (Tessalon Perles Cap) 100 mg 4XDQ4H PRN PO 08/16/17 19:00 09/15/17 18:59 Furosemide (Lasix Tab) 20 mg QAM PO 08/18/17 08:00 09/17/17 07:59 I & O: 24-Hour Column 08/18/17 07:59 Intake Total 655 ml Balance 655 ml Vital Signs: Date Time Temp Pulse Resp B/P (MAP) Pulse Ox O2 Delivery O2 Flow Rate FiO2 08/17/17 16:09 36.5 73 18 159/84 (109) 96 Room Air 08/17/17 15:25 75 16 97 Room Air 08/17/17 11:25 71 16 96 Room Air 08/17/17 10:13 Room Air 2.0 Nasal Cannula 08/17/17 08:01 36.5 62 20 167/104 (125) 94 Room Air 08/17/17 07:40 61 162/89 (113) 08/17/17 07:35 63 16 96 Nasal Cannula 2.0 08/17/17 00:00 95 Room Air 08/16/17 23:47 36.6 74 20 159/88 (111) 95 Room Air 08/16/17 22:22 95 08/16/17 20:15 Room Air 08/16/17 20:00 106 174/82 (112) 08/16/17 19:39 89 20 95 Nasal Cannula 2.0 Laboratory Results: Last 24 Hours Test 08/17/17 04:30 Creatinine 1.05 mg/dl Est Creatinine Clear Calc Drug Dose 56.4 ml/min Estimated GFR () 78.4 Estimated GFR (Non- 67.7 Estimated Average Glucose 123 mg/dl Hemoglobin A1c 5.9 %
--- NOTE | 2017-08-17 18:41 | Hospitalist Progress Note ---
Hospitalist Progress Note Date of Service Aug 17, 2017. Subjective Pt evaluation today including: conversation w/ patient, conversation w/ family , physical exam, chart review, lab review, review of studies, review of inpatient medication list Patient seen and evaluated. Still with wheezing on examination but improving. Cough is better controlled with cough suppressants. Ambulating better without significant REYNOLDS or wheezing. Was not able to tolerate BiPAP last night and will bring in home BiPAP. Did utilize dose of Lasix to help with possible congestion. Constitutional: No fever, No chills Respiratory: + cough (improving), + dyspnea on exertion Cardiovascular: No chest pain Abdomen: No pain, No nausea, No vomiting Male : No dysuria Heme: No abnormal bleeding/bruising Skin: No rash Medications Current Inpatient Medications Medications (Trade) Dose Ordered Sig/Sma Route Start Time Stop Time Status Last Admin Dose Admin Acetaminophen (Tylenol Tab) 650 mg Q4H PRN PO 08/13/17 23:00 09/12/17 22:59 Ondansetron HCl (Zofran Inj) 4 mg Q6H PRN IV 08/13/17 23:00 09/12/17 22:59 Budesonide/ Formoterol Fumarate (Symbicort 160/ 4.5 Inh) 2 puffs BID INH 08/14/17 08:00 09/13/17 08:59 08/17/17 07:36 2 PUFFS Fexofenadine HCl (Giuliana Tab) 180 mg BID PO 08/14/17 08:00 09/13/17 08:59 08/17/17 07:36 180 MG Isosorbide Mononitrate (Imdur Ext Rel Tab) 60 mg QAM PO 08/14/17 08:00 09/13/17 08:59 08/17/17 07:36 60 MG Loratadine (Claritin Tab) 10 mg DAILY PO 08/14/17 08:00 09/13/17 08:59 08/17/17 07:36 10 MG Metoprolol Tartrate (Lopressor Tab) 25 mg BID PO 08/14/17 08:00 09/13/17 08:59 08/17/17 07:36 25 MG Nitroglycerin (Nitrostat Tab) 0.4 mg UD PRN UT 08/13/17 23:00 09/12/17 22:59 Ranitidine HCl (zANTac TAB) 150 mg BID PO 08/14/17 08:00 09/13/17 08:59 08/17/17 07:36 150 MG Apixaban (Eliquis Tab) 5 mg BID PO 08/14/17 08:00 09/13/17 08:59 08/17/17 07:36 5 MG Albuterol/ Ipratropium (Duoneb) 3 ml QIDR INH 08/14/17 08:00 09/13/17 07:59 08/17/17 15:23 3 ML Guaifenesin (Mucinex Contr Rel Tab) 1,200 mg Q12H PO 08/14/17 09:00 09/13/17 08:59 08/17/17 07:36 1,200 MG Miscellaneous (Iv Fluids Completed) 1 ea PRN PRN N/A 08/14/17 01:45 08/14/18 01:44 Levofloxacin (Levaquin Tab) 750 mg DAILY@11 PO 08/16/17 11:00 08/20/17 10:59 08/17/17 07:35 750 MG Prednisone (PredniSONE TAB) 40 mg DAILY PO 08/16/17 08:00 09/15/17 07:59 08/17/17 07:36 40 MG Codeine Phosphate/ Guaifenesin (Robitussin-AC Sugar Free Syrup) 5 ml Q6H PRN PO 08/16/17 12:00 09/15/17 11:59 08/17/17 07:47 5 ML Tiotropium [place] (Spiriva Handihaler Inhaler) 1 puff QAM INH 08/17/17 08:00 09/16/17 07:59 08/17/17 07:47 1 PUFF Benzonatate (Tessalon Perles Cap) 100 mg TID PO 08/16/17 20:00 09/15/17 19:59 08/17/17 14:26 100 MG Benzonatate (Tessalon Perles Cap) 100 mg 4XDQ4H PRN PO 08/16/17 19:00 09/15/17 18:59 Furosemide (Lasix Tab) 20 mg QAM PO 08/18/17 08:00 09/17/17 07:59 Objective Vital Signs Date Time Temp Pulse Resp B/P (MAP) Pulse Ox O2 Delivery O2 Flow Rate FiO2 08/17/17 16:09 36.5 73 18 159/84 (109) 96 Room Air 08/17/17 15:25 75 16 97 Room Air 08/17/17 11:25 71 16 96 Room Air 08/17/17 10:13 Room Air 2.0 Nasal Cannula 08/17/17 08:01 36.5 62 20 167/104 (125) 94 Room Air 08/17/17 07:40 61 162/89 (113) 08/17/17 07:35 63 16 96 Nasal Cannula 2.0 08/17/17 00:00 95 Room Air 08/16/17 23:47 36.6 74 20 159/88 (111) 95 Room Air 08/16/17 22:22 95 08/16/17 20:15 Room Air 08/16/17 20:00 106 174/82 (112) 08/16/17 19:39 89 20 95 Nasal Cannula 2.0 Physical Exam General Appearance: WD/WN, no apparent distress Neck: supple, no JVD, trachea midline Respiratory/Chest: no respiratory distress, no accessory muscle use, + wheezing Cardiovascular: regular rate, rhythm, no gallop, no murmur Abdomen: normal bowel sounds, non tender, soft Extremities: no calf tenderness Neurologic/Psychiatric: alert, oriented x 3 Skin: normal color Laboratory Results Last 24 Hours Test 08/17/17 04:30 Creatinine 1.05 mg/dl Est Creatinine Clear Calc Drug Dose 56.4 ml/min Estimated GFR () 78.4 Estimated GFR (Non- 67.7 Estimated Average Glucose 123 mg/dl Hemoglobin A1c 5.9 % Assessment and Plan 77 year old admission on 08/13/2017 for possible asthma exacerbation with shortness of breath with failed outpatient treatment Asthma Exacerbation: Improving - Recently Dx with BISI on BiPAP at night - denies smoking history - improving with ability to ambulate and cough/wheezing improving - Prednisone 40 mg daily and likely needs long taper at discharge - Duonbes SAM and PRN and Symbicort 2 puffs BID - Mucinex 1200 BID and Guaifenesin/Codeine PRN - Pulmonology following - appreciate recommendations Possible Pneumonia: - Levaquin 750 mg po daily and can finish 7 day course Hyperglycemia due to Steroids: A1c 5.9 - Glucose in mid-200s and likely the result of steroids - continue to monitor as steroids will be tapered - Can place liberal SSI if necessary - will defer at this time H/O Pulmonary Embolism: - Eliquis 5 mg BID CAD/HTN: - Imdur 60 mg daily and Lopressor 25 mg BID DVT Prophylaxis: Eliquis Disposition: - Improving but still significantly wheezy but if improved tomorrow anticipate D /C tomorrow Discharge planning: home
[2017-08-18] VITALS (11 sets, daily range): BP systolic 128–170; BP diastolic 65–94; PULSE 59–97; TEMP 36.7–36.8; O2SAT 94–98
[2017-08-18] MEDS: ALBUT/IPRATROP 3MG/0.5MG NEB 3 ML VIAL INH SCH ×4 (07:05→19:05)
[2017-08-18] MEDS: METOPROLOL TARTRATE 25 MG TAB PO SCH ×2 (08:00→20:33)
[2017-08-18] MEDS: TIOTROPIUM BROMIDE 5 PUFF/90 MCG INH INH SCH (08:11)
[2017-08-18] MEDS: ISOSORBIDE MONONITRATE 60 MG TABCR PO SCH (08:12)
[2017-08-18] MEDS: FEXOFENADINE HCL 180 MG TAB PO SCH ×2 (08:12→20:28)
[2017-08-18] MEDS: APIXABAN 2.5 MG TAB PO SCH ×2 (08:12→20:28)
[2017-08-18] MEDS: FUROSEMIDE 20 MG TAB PO SCH (08:12)
[2017-08-18] MEDS: LORATADINE 10 MG TAB PO SCH (08:12)
[2017-08-18] MEDS: BUDESONIDE/FORMOTEROL FUMARATE 160/4.5 60 PUFFS/INHALER INH SCH ×2 (08:12→20:26)
[2017-08-18] MEDS: RANITIDINE HCL 150 MG TAB PO SCH ×2 (08:13→20:29)
[2017-08-18] MEDS: BENZONATATE 100MG CAP PO SCH ×3 (08:13→20:28)
[2017-08-18] MEDS: GUAIFENESIN 600 MG TABCR PO SCH ×2 (08:13→20:30)
--- NOTE | 2017-08-18 08:52 | Progress Note ---
Subjective Date of Service: Aug 18, 2017. Subjective Pt evaluation today including: conversation w/ patient, conversation w/ family , physical exam, chart review, lab review, review of studies, conversation w/ library consultant, review of inpatient medication list Out of bed to rest room, dyspnea on exertion, still obvious tachypneic, but generally feeling better, less cough, less wheezing, has been using BiPAP hold night last night, Problem List Medical Problems: (1) Abdominal pain Status: Acute (2) Anemia Status: Acute (3) Asthma exacerbation Status: Acute (4) Bronchitis Status: Acute (5) Cellulitis of hand, right Status: Acute (6) Cough Status: Acute (7) Fall Status: Acute (8) Generalized abdominal pain Status: Acute (9) Hyperkalemia Status: Acute (10) Non-cardiac chest pain Status: Acute (11) Sepsis Status: Acute (12) Sigmoid diverticulitis Status: Acute (13) Thrombocytopenia Status: Acute (14) Thrombocytopenia Status: Acute Review of Systems Constitutional: + weakness, + fatigue Eyes: No see HPI, No worsening of vision, No eye pain, No redness, No discharge , No diplopia, No problem reported ENT: No see HPI, No hearing loss, No unusual epistaxis, No nasal symptoms, No sore throat, No tinnitus, No dental problems, No trouble swallowing, No problem reported Respiratory: + see HPI, + cough, + wheezing, + shortness of breath, + dyspnea on exertion Cardiac: No see HPI, No chest pain, No orthopnea, No PND, No edema, No claudication, No palpitations, No problem reported Musculoskeletal: No see HPI, No joint pain, No muscle pain, No swelling, No calf pain, No problem reported Male : No see HPI, No dysuria, No urinary frequency, No incontinence, No nocturia more than once/night, No slowing stream, No hematuria, No sexual dysfunction, No problem reported Neurologic: No see HPI, No memory loss, No paralysis, No weakness, No numbness/ tingling, No vertigo, No balance problems, No problem reported Psychiatric: No see HPI, No depression symptoms, No anhedonism, No anxiety, No insomnia, No substance abuse, No problem reported Endo: No see HPI, No fatigue, No excessive thirst, No excessive urination, No problem reported Skin: No see HPI, No rash, No itch, No new/changing skin lesions, No color change, No bleeding, No problem reported Objective Vital Signs Date Time Temp Pulse Resp B/P (MAP) Pulse Ox O2 Delivery O2 Flow Rate FiO2 08/18/17 08:32 Room Air 08/18/17 07:16 36.7 59 20 129/73 (91) 95 08/18/17 07:05 74 16 94 Room Air 08/18/17 00:26 36.8 65 20 128/65 (86) 94 BiPAP 08/18/17 00:00 95 Room Air 08/17/17 20:01 70 16 96 Room Air 08/17/17 16:09 36.5 73 18 159/84 (109) 96 Room Air 08/17/17 16:00 Room Air 08/17/17 15:25 75 16 97 Room Air 08/17/17 11:25 71 16 96 Room Air 08/17/17 10:13 Room Air 2.0 Nasal Cannula Physical Exam General Appearance: WD/WN, no apparent distress, + obese Eyes: normal inspection, PERRL, EOMI, sclerae normal ENT: normal ENT inspection, hearing grossly normal, pharynx normal Neck: supple, no adenopathy, thyroid normal, no JVD, no carotid bruits, trachea midline Respiratory/Chest: chest non-tender, no respiratory distress, no accessory muscle use, + decreased breath sounds, + accessory muscle use (when up and walk to the restroom), + wheezing (is improved but still have expiratory wheezing in upper, middle, and lower gl[place]y lungs ) Cardiovascular: regular rate, rhythm, no edema, no gallop, no JVD, no murmur Abdomen: normal bowel sounds, non tender, soft, no organomegaly, no pulsatile mass Extremities: normal range of motion, non-tender, normal inspection, no pedal edema, no calf tenderness, normal capillary refill, pelvis stable Neurologic/Psychiatric: shorer II-XII nml as tested, no motor/sensory deficits, alert, normal mood/affect, oriented x 3 Skin: normal color, warm/dry, no rash Lymphatic: no adenopathy Assessment and Plan 77 year old admission on 08/13/2017 for possible asthma exacerbation with shortness of breath with failed outpatient treatment Dyspnea exertion wheezing, likely because of Asthma Exacerbation, other differential diagnosis include sleep apnea, COPD, CHF exacerbation with lower extremity swelling is treating by diuretic Asthma Exacerbation: Continue slowly Improving, improving possible because of multiple factors helping him such as medicine treatment, and compliance using BiPAP machine at nighttime Recently Dx with BISI on BiPAP at night, advised to compliant with using BiPAP machine, otherwise nontender hypoxic may cause organ damages from hypoxia H/O Pulmonary Embolism: Has been on and cont Prednisone 40 mg daily and planning long taper at discharge Continue Duonbes SAM and PRN, continue Symbicort 2 puffs BID Continue Mucinex 1200 BID and Guaifenesin/Codeine PRN Continue with supplemental oxygen at night for obstructive sleep apnea. Continue with Spiriva Spiriva Continue with Tessalon Perles Continue with Lasix for lower extremity edema has ordered speech and swallow evaluation to rule out aspiration pulm input appreciated History of PE and will continue Eliquis 5 mg BID Possible CHF exacerbation with history of hypertension CAD, associated with with lower extremity swelling is treating by diuretic: Continue diuretic, check BNP, follow-up BMP, check echocardiogram Hypertension Coronary artery disease GERD The above condition stable continue current care GI and DVT prophylaxis, we'll continue current care to solidify the improving of his medical conditions, planning to discharge home tomorrow Continued [facility] stay due to: other (respiratory status) Discharge planning: home
[2017-08-18] MEDS ORDERED: PERFLUTREN LIPID MICROSPHERE (DEFINITY) IV ONE (09:45)
--- NOTE | 2017-08-18 10:36 | ECHOCARDIOGRAM REPORT ---
*NOTICE TO RECEIVING DEMOCRAT AGENCY This information is strictly Confidential and protected under [place] law. [place] law prohibits you from making any further disclosure of this information unless further disclosure is expressly permitted by the written consent of the person to whom it pertains or is authorized by law. A general authorization for the release of medical or other information is not sufficient for this purpose. Hospital accepts no responsibility if the information is made available to any other person, INCLUDING THE PATIENT. Interpretation Summary * Name: ANGIE COHEN Study Date: 08/18/2017 10:31 AM BP: 129/73 mmHg * Patient Location: [facility] – [place]\S\[id number]\[id number] HR: 59 * : 1940 (M/d/yy) Gender: Male Height: 61 in * Age: 77 yrs Ethnicity: [place] Weight: 205 lb * Ordering Physician: Roberto Winchester * Referring Physician: Brad Mason * Performed By: Julianna Thornton RDCS * * Reason For Study: REYNOLDS, LOWER EXTS SWELLING * BSA: 1.9 m2 * -- Conclusions -- * The study was technically limited. * There is mild concentric left ventricular hypertrophy. * Left ventricular systolic function is normal. * Diastolic dysfunction, Grade II, consistent with elevated left atrial pressure. Procedure Details * A complete two-dimensional transthoracic echocardiogram was performed (2D, M-mode, Doppler and color flow Doppler). * The study was technically difficult. * There were technical limitations due to patient'sPoor acoustic windows secondary to severe lung disease. * A contrast injection of Definity was performed to improve assessment of LV function. * Contrast was injected into an intravenous site in the left arm. * One vial of Definity ultrasound contrast was diluted in normal saline to a total volume of 10 ml. A total of '3' ml of solution was administered during imaging. * Lot # [id number] of Definity utilized for procedure. * Expiration date 09/24. * The attending nurse who injected the contrast agent was [place] RN. * The study was technically limited. Left Ventricle * The left ventricle is grossly normal size. * There is mild concentric left ventricular hypertrophy. * Ejection Fraction = 50-55%. * Left ventricular systolic function is normal. * Diastolic dysfunction, Grade II, consistent with elevated left atrial pressure. * The left ventricular wall motion is normal. Right Ventricle * The right ventricle is not well visualized. * The right ventricular systolic function is normal as assessed by tricuspid annular plane systolic excursion (TAPSE) (normal >1.5 cm). Atria * The left atrium is not well visualized. * Right atrium not well visualized. Mitral Valve * The mitral valve is grossly normal. * Significant mitral regurgitation is absent. Tricuspid Valve * The tricuspid valve is not well visualized. * There is trace tricuspid regurgitation. Aortic Valve * The aortic valve is not well visualized. * No hemodynamically significant valvular aortic stenosis. * There is no significant aortic regurgitation. Pericardium/Pleural * There is no pericardial effusion. MMode 2D Measurements and Calculations IVSd 1.6 cm IVSs 2.5 cm LVIDd 4.3 cm LVIDs 3.1 cm LVPWd 1.5 cm LVPWs 1.7 cm IVS/LVPW 1.0 FS 28.7 % EDV(Teich) 82.7 ml ESV(Teich) 36.8 ml EF(Teich) 55.5 % EDV(cubed) 79.1 ml ESV(cubed) 28.7 ml EF(cubed) 63.7 % % IVS thick 60.9 % % LVPW thick 11.9 % LV mass(C)d 272.7 grams LV mass(C)dI 142.9 grams/m\S\2 LV mass(C)s 302.5 grams LV mass(C)sI 158.5 grams/m\S\2 SV(Teich) 45.9 ml SI(Teich) 24.1 ml/m\S\2 SV(cubed) 50.4 ml SI(cubed) 26.4 ml/m\S\2 ACS 1.2 cm asc Aorta Diam 3.5 cm LVOT diam 2.0 cm LVOT area 3.1 cm\S\2 LVAd ap4 29.7 cm\S\2 LVLd ap4 8.1 cm EDV(MOD-sp4) 89.2 ml EDV(sp4-el) 92.2 ml LVAs ap4 18.5 cm\S\2 LVLs ap4 6.9 cm ESV(MOD-sp4) 41.6 ml ESV(sp4-el) 42.0 ml EF(MOD-sp4) 53.4 % EF(sp4-el) 54.4 % LVAd ap2 35.9 cm\S\2 LVLd ap2 8.1 cm EDV(MOD-sp2) 128.6 ml EDV(sp2-el) 136.0 ml LVAs ap2 22.1 cm\S\2 LVLs ap2 6.9 cm ESV(MOD-sp2) 59.3 ml ESV(sp2-el) 60.3 ml EF(MOD-sp2) 53.9 % EF(sp2-el) 55.6 % LVLd %diff -0.63 % EDV(MOD-bp) 106.5 ml LVLs %diff -0.11 % ESV(MOD-bp) 49.8 ml EF(MOD-bp) 53.2 % SV(MOD-sp4) 47.6 ml SI(MOD-sp4) 24.9 ml/m\S\2 SV(MOD-sp2) 69.3 ml SI(MOD-sp2) 36.3 ml/m\S\2 SV(MOD-bp) 56.7 ml SI(MOD-bp) 29.7 ml/m\S\2 SV(sp4-el) 50.2 ml SI(sp4-el) 26.3 ml/m\S\2 SV(sp2-el) 75.7 ml SI(sp2-el) 39.6 ml/m\S\2 Doppler Measurements and Calculations MV E max yousuf 84.7 cm/sec MV A max yousuf 62.1 cm/sec MV E/A 1.4 MV dec time 0.22 sec Ao V2 max 107.0 cm/sec Ao max PG 4.6 mmHg Ao max PG (full) 0.73 mmHg BIBIANA(V,A) 2.8 cm\S\2 BIBIANA(V,D) 2.8 cm\S\2 LV V1 max PG 3.8 mmHg LV V1 max 98.1 cm/sec PA V2 max 97.1 cm/sec PA max PG 3.8 mmHg
[2017-08-18] MEDS: LEVOFLOXACIN 750 MG TAB PO SCH (12:26)
[2017-08-18] MEDS: GUAIFENESIN/CODEINE 100MG/10MG 5ML UDC PO PRN (15:10)
[2017-08-18] MEDS: GUAIFENESIN/CODEINE 100MG/10MG 5ML UDC PO SCH ×2 (20:25→23:56)
[2017-08-19 06:15] LABS: BUN/CREATININE RATIO 24.6 (10-20); CALCIUM 8.2 mg/dl (8.5-10.1); CREATININE 0.85 mg/dl (0.60-1.40); MAGNESIUM 2.1 mg/dl (1.8-2.4); POTASSIUM 3.8 mmol/L (3.5-5.1)
[2017-08-19] MEDS: GUAIFENESIN/CODEINE 100MG/10MG 5ML UDC PO SCH (06:24)
[2017-08-19 07:09] VITALS: PULSE 62; O2SAT 92
[2017-08-19] MEDS: ALBUT/IPRATROP 3MG/0.5MG NEB 3 ML VIAL INH SCH (07:09)
[2017-08-19] MEDS ORDERED: SPRIN INH ×2 (07:37)
[2017-08-19] MEDS ORDERED: PRD20 PO ×2 (07:37)
[2017-08-19] MEDS ORDERED: GUAISYP4 PO ×2 (07:37)
[2017-08-19] MEDS ORDERED: LSX20 PO ×2 (07:37)
--- NOTE | 2017-08-19 07:44 | Discharge Instructions ---
Discharge Instructions Date of Service Aug 19, 2017. Admission Reason for Admission: Copd Exacerbation Discharge Discharge Diagnosis / Problem: asthma exac Discharge Goals Goal(s): Decrease discomfort, Improve function, Increase independence, Improve disease control, Improve nutritional status, Learn about illness, Diagnostic testing, Therapeutic intervention, Prevent Disease Progression, Specific goals Activity Recommendations Activity Limitations: resume your previous activity . Instructions / Follow-Up Instructions / Follow-Up you have Asthma Exacerbation, you have sleep apnea, you have CHF exacerbation you need to using BiPAP machine at nighttime I am giving you continuos tapering of Olral Prednisone you are on Lasix for lower extremity edema, this need to be follow up with your PCP in 3-4 days for labs of BMP - you need to follow up with your primary care physician in 1 week - you need to follow up with your subspecialist , Pulmonagist in 2-3 weeks - take medication as instructed, never overdose or any misuse, or take with alcohol, because misuse of medicine may cause organ damage or , call your primary care physician if have questions of medications. - call your primary care physician OR go to local emergency room if has any fever/chill, chest pain, shortness of breathing, nausea/vomiting/abdominal pain , facial droop/slurry speech/local weakness, or if has any questions. - fall precaution - diet as instructed - you should understand that it is important to follow up the above instruction , and "not following the above instruction" may cause delayed or missed care of your medical conditions which may cause permanent organ damage and even . Current Hospital Diet Patient's current hospital diet: Regular Diet Discharge Diet Recommended Diet: Regular Diet Pending Studies Studies pending at discharge: yes List of pending studies: IgE Laboratory Results Hemoglobin A1c Test 08/17/17 04:30 Range/Units Estimated Average Glucose 123 mg/dl Hemoglobin A1c 5.9 H 4.5-5.6 % Medical Emergencies . Who to Call and When: Medical Emergencies: If at any time you feel your situation is an emergency, please call 911 immediately. . Non-Emergent Contact Non-Emergency issues call your: Primary Care Provider, Card Reader . . "Provider Documentation" section prepared by Roberto Winchester. . VTE Core Measure Inpt VTE Proph given/why not?: Other Anticoagulation (apixaban)
[2017-08-19] MEDS ORDERED: BENZ100C7 PO ×2 (07:46)
[2017-08-19] MEDS ORDERED: GFNSR600 PO ×2 (07:46)
[2017-08-19 07:48] VITALS: BP 149/72; PULSE 58; TEMP 36.6; O2SAT 93
[2017-08-19] MEDS: METOPROLOL TARTRATE 25 MG TAB PO SCH (08:00)
[2017-08-19] MEDS: FEXOFENADINE HCL 180 MG TAB PO SCH (08:28)
[2017-08-19] MEDS: APIXABAN 2.5 MG TAB PO SCH (08:28)
[2017-08-19] MEDS: FUROSEMIDE 20 MG TAB PO SCH (08:28)
[2017-08-19] MEDS: TIOTROPIUM BROMIDE 5 PUFF/90 MCG INH INH SCH (08:28)
[2017-08-19] MEDS: LORATADINE 10 MG TAB PO SCH (08:28)
[2017-08-19] MEDS: ISOSORBIDE MONONITRATE 60 MG TABCR PO SCH (08:28)
[2017-08-19] MEDS: BUDESONIDE/FORMOTEROL FUMARATE 160/4.5 60 PUFFS/INHALER INH SCH (08:28)
[2017-08-19] MEDS: GUAIFENESIN 600 MG TABCR PO SCH (08:29)
[2017-08-19] MEDS: BENZONATATE 100MG CAP PO SCH (08:29)
[2017-08-19] MEDS: RANITIDINE HCL 150 MG TAB PO SCH (08:29)
[2017-08-19 09:40] VITALS: BP 149/72; PULSE 58; TEMP 36.6; O2SAT 93
--- NOTE | 2017-08-19 10:32 | Discharge Summary ---
Discharge Summary Date of Service Aug 19, 2017. Discharge Summary Admission Date: Aug 15, 2017 at 14:16 Discharge Date: Aug 19, 2017 Discharge Disposition: Home Principal Diagnosis: Asthma Exacerbation Problems/Secondary Diagnoses: sleep apnea, CHF exacerbation Immunizations: Have You Had Influenza Vaccine: Yes Influenza Vaccine Date: Jul 05, 2013 History of Tetanus Vaccine?: Unknown History of Pneumococcal: Yes Pneumococcal Date: Oct 04, 2011 History of Hepatitis B Vaccine: Unknown Procedures: No Consultations: Usability Specialist Medication Reconciliation New Medications: Benzonatate (Benzonatate) 100 Mg Cap 100 MG PO [id number] PRN for Cough for 5 Days, CAP Furosemide (Furosemide) 20 Mg Tab 20 MG PO QAM for 7 Days, #7 TAB Guaifenesin Ext Rel (Mucinex Ext Rel) 600 Mg Tabcr 1200 MG PO Q12H for 5 Days Guaifenesin/Codeine (Robitussin-Ac Syrup) Syrp 5 ML PO Q6H for 7 Days Prednisone (Prednisone) 20 Mg Tab 40 MG PO DAILY for 8 Days, #11 TAB 2 tabs po daily for 3 days, then 1 tabs po daily for 3 days, then 1/2 tab po daily for 3 days, then stop Tiotropium [place] (Spiriva Handihaler) 5 Puff/90 Mcg Aerp 1 PUFF INH QAM for 7 Days, #1 Continued Medications: Apixaban (Eliquis) 5 Mg Tab 5 MG PO BID for 30 Days, #60 TAB 3 Refills Budesonide/Formoterol Fumarate (Symbicort 160/4.5 Inhaler) 120 Puffs/ Aero 1 PUFF PO BID Ipratropium-Albuterol (Combivent Respimat) 1 Aer Aer 1 PUFFS INH BID Ipratropium-Albuterol (Duoneb) 3 Ml Nebu 1 TREATMENT INH QID, INHA Isosorbide Mononitrate Ext Rel (Imdur Ext Rel) 60 Mg Ertab 60 MG PO QAM Loratadine (Claritin) 10 Mg Tab 10 MG PO DAILY, TAB Metoprolol Tartrate (Lopressor) (Lopressor) 50 Mg Tab 25 MG PO BID Nitroglycerin (Nitrostat) 0.4 Mg Sub 0.4 MG UT UD PRN for Chest Pain Ranitidine Hcl (Zantac) 150 Mg Tab 300 MG PO BID Discontinued Medications: Fexofenadine HCl (Mucinex Allergy) 180 Mg Tab 180 MG PO BID Prednisone (Prednisone) 20 Mg Tab 40 MG PO DAILY X 5 DAYS Discharge Exam Sitting up in chair, eating breakfast first, easy get cough spell when deep breathing, , deny fever and chill, generally feeling better did not using CPAP machine last night Review of Systems: Constitutional: No fever, No chills, No sweats, No weight loss, No weakness , No fatigue, No problem reported Eyes: No worsening of vision, No eye pain, No redness, No discharge, No diplopia, No problem reported ENT: No hearing loss, No unusual epistaxis, No nasal symptoms, No sore throat, No tinnitus, No dental problems, No trouble swallowing, No problem reported Respiratory: + cough, + dyspnea on exertion (Better) Cardiovascular: No chest pain, No orthopnea, No PND, No edema, No claudication, No palpitations, No problem reported Abdomen: No pain, No nausea, No vomiting, No diarrhea, No constipation, No GI bleeding, No problem reported Musculoskeletal: No joint pain, No muscle pain, No swelling, No calf pain, No problem reported Genitourinary - Male: No hematuria, No dysuria, No urinary frequency, No urinary urgency, No urinary hesitancy, No urinary retention, No urinary incontinence, No penile discharge, No lesions, No impotence, No problem reported Neurologic: No memory loss, No paralysis, No weakness, No numbness/tingling , No vertigo, No balance problems, No problem reported Psychiatric: No depression symptoms, No anhedonism, No anxiety, No insomnia , No substance abuse, No problem reported Endocrine: No fatigue, No excessive thirst, No excessive urination, No problem reported Integumentary: No rash, No itch, No new/changing skin lesions, No color change, No bleeding, No problem reported Physical Exam: General Appearance: WD/WN, no apparent distress, + obese Eyes: normal inspection, PERRL ENT: normal ENT inspection, hearing grossly normal Neck: supple, no adenopathy Respiratory/Chest: chest non-tender, lungs clear, + decreased breath sounds , + wheezing (wheezing is better then yesterday) Cardiovascular: regular rate, rhythm, no edema Abdomen / GI: normal bowel sounds, non tender, soft Extremities: normal inspection, no calf tenderness, normal capillary refill , no pedal edema, normal range of motion Neurologic/Psychiatric: respiratory technician II-XII nml as tested, no motor/sensory deficits , alert, normal mood/affect, normal reflexes Skin: normal color, warm/dry Hospital Course 77 year old admission on 08/13/2017 for possible asthma exacerbation with shortness of breath with failed outpatient treatment Dyspnea exertion wheezing, likely because of Asthma Exacerbation, other differential diagnosis include sleep apnea, COPD, CHF exacerbation with lower extremity swelling is treating by diuretic Asthma Exacerbation: Continue slowly Improving, improving possible because of multiple factors helping him such as medicine treatment, and compliance using BiPAP machine at nighttime Recently Dx with BISI on BiPAP at night, advised to compliant with using BiPAP machine, otherwise hypoxic may cause organ damages from hypoxia Has been on and cont Prednisone 40 mg daily and planning long taper at discharge, planning to tapering over 10 days Continue Duonbes SAM and PRN, continue Symbicort 2 puffs BID Continue Mucinex 1200 BID and Guaifenesin/Codeine PRN Continue with supplemental oxygen at night for obstructive sleep apnea. Continue with Spiriva Spiriva Continue with Tessalon Perles Continue with Lasix for lower extremity edema, has advised patient to follow-up with PCP about lytes and renal function speech and swallow evaluation was done, no us no obvious aspiration pulm input appreciated History of PE and will continue Eliquis 5 mg BID Possible diastolic CHF exacerbation with history of hypertension CAD, associated with with lower extremity swelling is treating by diuretic: Continue diuretic, checked BNP was no obvious elevated, checked echocardiogram showed diastolic dysfunction grade 2, detail please see formal report in below: Echo results per report on 08/18/2017 * The study was technically limited. * There is mild concentric left ventricular hypertrophy. * Left ventricular systolic function is normal. * Diastolic dysfunction, Grade II, consistent with elevated left atrial pressure. Hypertension Coronary artery disease GERD The above condition stable continue current care GI and DVT prophylaxis, we'll continue current care to solidify the improving of his medical conditions, planning to discharge home today Patient could be high risk of readmission because of medicine noncompliant, does not want to wear CPAP machine at nighttime, multiple conditions contribute to dyspnea on exertion and sob Instructions / Follow-Up you have Asthma Exacerbation, you have sleep apnea, you have CHF exacerbation you need to using BiPAP machine at nighttime I am giving you continuos tapering of Olral Prednisone you are on Lasix for lower extremity edema, this need to be follow up with your PCP in 3-4 days for labs of BMP - you need to follow up with your primary care physician in 1 week - you need to follow up with your subspecialist , Pulmonagist in 2-3 weeks - take medication as instructed, never overdose or any misuse, or take with alcohol, because misuse of medicine may cause organ damage or , call your primary care physician if have questions of medications. - call your primary care physician OR go to local emergency room if has any fever/chill, chest pain, shortness of breathing, nausea/vomiting/abdominal pain , facial droop/slurry speech/local weakness, or if has any questions. - fall precaution - diet as instructed - you should understand that it is important to follow up the above instruction , and "not following the above instruction" may cause delayed or missed care of your medical conditions which may cause permanent organ damage and even . Total Time Spent: Greater than 30 minutes This includes examination of the patient, discharge planning, medication reconciliation, and communication with other providers. Discharge Instructions Please refer to the electronic Patient Visit Report (Discharge Instructions) for additional information. Additional Copies To Brad Mason III, CRNP
[2017-08-19] MEDS: LEVOFLOXACIN 750 MG TAB PO SCH (10:41)
[2017-08-19] MEDS ORDERED: IPRATROPIUM BROMIDE/ALBUTEROL respimat INH INH SCH (12:00)
== END 2017-08-19 11:21 | disposition home or self-care (01) | DRG 202 ==
LOC: C.EDB 17:15 → C.4E 23:13 → ENRESERV 23:25 → OBSVTOIN 08-15 14:16
PROVIDERS: ADMIT Internal Medicine; ATTEND Hospitalist
DX: J45.41 Moderate persistent asthma with (acute) exacerbation (principal); J18.9 Pneumonia, unspecified organism; I50.31 Acute diastolic (congestive) heart failure; G47.33 Obstructive sleep apnea (adult) (pediatric); Z91.19 Patient's noncompliance with other medical treatment and regimen; R73.9 Hyperglycemia, unspecified; T38.0X5A Adverse effect of glucocorticoids and synthetic analogues, initial encounter; I11.0 Hypertensive heart disease with heart failure; I25.10 Atherosclerotic heart disease of native coronary artery without angina pectoris; K21.9 Gastro-esophageal reflux disease without esophagitis; F03.90 Unspecified dementia, unspecified severity, without behavioral disturbance, psychotic disturbance, mood disturbance, and anxiety; E66.01 Morbid (severe) obesity due to excess calories; Z68.38 Body mass index [BMI] 38.0-38.9, adult; Z86.711 Personal history of pulmonary embolism; Z79.01 Long term (current) use of anticoagulants; Z79.899 Other long term (current) drug therapy; Z83.3 Family history of diabetes mellitus; Z82.49 Family history of ischemic heart disease and other diseases of the circulatory system; Z84.1 Family history of disorders of kidney and ureter; Z82.3 Family history of stroke

== ENCOUNTER → 2017-08-21 | Outpatient (CLI) | payer BC ==
[~2017-08-21] MED LIST changes: +BENZ100C7 PO; -FEXO3TAB PO; +GFNSR600 PO; +GUAISYP4 PO; +LSX20 PO; +PRD20 PO; -PRED10TA PO; -PRED20TA PO; +SPRIN INH
[2017-08-21 12:46] LABS: BLOOD UREA NITROGEN 17 mg/dl (7-18); BUN/CREATININE RATIO 17.6 (10-20); CALCIUM 8.9 mg/dl (8.5-10.1); CARBON DIOXIDE 30 mmol/L (21-32); CHLORIDE 104 mmol/L (98-107); CREATININE 0.94 mg/dl (0.60-1.40); GLUCOSE 163 mg/dl (70-99); SODIUM 141 mmol/L (136-145)
== END | disposition home or self-care (01) ==
LOC: C.LAB 10:18
PROVIDERS: ATTEND Nurse Practitioner Family
DX: I10 Essential (primary) hypertension (principal)

== ENCOUNTER → 2017-08-24 | Outpatient (CLI) | payer BC ==
[~2017-08-24] MED LIST changes: +FEXO3TAB PO; +PRED10TA PO; +PRED20TA PO
[2017-08-24 14:46] LABS: BLOOD UREA NITROGEN 18 mg/dl (7-18); BUN/CREATININE RATIO 18.1 (10-20); CALCIUM 8.6 mg/dl (8.5-10.1); CARBON DIOXIDE 32 mmol/L (21-32); CHLORIDE 101 mmol/L (98-107); CREATININE 1.01 mg/dl (0.60-1.40); GLUCOSE 203 mg/dl (70-99); POTASSIUM 4.2 mmol/L (3.5-5.1); SODIUM 138 mmol/L (136-145)
== END | disposition home or self-care (01) ==
LOC: C.LAB1850 12:40
PROVIDERS: ATTEND Internal Medicine Pulmonary Disease
DX: I10 Essential (primary) hypertension (principal); R63.1 Polydipsia

== ENCOUNTER → 2017-09-26 | Outpatient (CLI) | payer BC ==
[~2017-09-26] MED LIST changes: +CEFD1CAP14 PO; -FEXO3TAB PO; +LEVO1TAB33 PO; +OXYC1TAB3 PO; -PRED20TA PO
[2017-09-26 13:08] LABS: BASO % 0.5 %; BASO ABS # 0.04 K/uL (0-0.2); COMPLETE YES; EOS % 1.5 %; HEMATOCRIT 38.4 % (42-52); IG% 1.1 %; LYMPH % 27.7 %; LYMPH ABS # 2.27 K/uL (1.2-3.4); MEAN CELL VOLUME 89.7 fL (80-100); MEAN CORPUSCULAR HEMOGLOBIN 30.1 pg (25-34); MEAN CORPUSCULAR HGB CONC 33.6 g/dl (32-36); MEAN PLATELET VOLUME 9.4 fL (7.4-10.4); MONO % 13.3 %; NEUT % 55.9 %; PLATELET COUNT 196 K/uL (130-400); RED BLOOD COUNT 4.28 M/uL (4.7-6.1)
--- NOTE | 2017-09-26 13:15 | DIAGNOSTIC IMAGING REPORT ---
CHEST 2 VIEWS ROUTINE CLINICAL HISTORY: ASTHMA EXACERBATION COMPARISON STUDY: 08/14/2017 FINDINGS: The cardiac and mediastinal contours remain stable. There is no failure. There is no lobar consolidation. There are resolving left basilar airspace opacities. No pleural effusions are evident.[ Arthritic changes are present within the shoulders. IMPRESSION: Resolving left basal airspace opacities. No acute findings. Electronically signed by: Bridger Veras M.D. 09/26/2017 1:14 PM Dictated Date/Time: 09/26/2017 1:13 PM
[2017-09-26 13:19] LABS: ESTIMATED AVERAGE GLUCOSE 146 mg/dl; HA1C FLAG Normal (Normal)
[2017-09-26 13:37] LABS: BLOOD UREA NITROGEN 15 mg/dl (7-18); BUN/CREATININE RATIO 13.6 (10-20); CARBON DIOXIDE 29 mmol/L (21-32); CHLORIDE 104 mmol/L (98-107); CREATININE 1.07 mg/dl (0.60-1.40); GLUCOSE 139 mg/dl (70-99); POTASSIUM 4.4 mmol/L (3.5-5.1); SODIUM 136 mmol/L (136-145)
== END | disposition home or self-care (01) ==
LOC: C.RAD 12:17
PROVIDERS: ATTEND Nurse Practitioner Family
DX: J45.901 Unspecified asthma with (acute) exacerbation (principal)

== ENCOUNTER 2017-09-27 14:34 | Emergency (ER) | payer BC ==
[~2017-09-27 14:34] MED LIST changes: -CEFD1CAP14 PO; -LEVO1TAB33 PO; -OXYC1TAB3 PO; -PRED10TA PO
[2017-09-27 14:37] VITALS: TEMP 36.3
[2017-09-27] MEDS ORDERED: ONDANSETRON INJ 2 MG/ML 2 ML VIAL IV STA (14:42)
--- NOTE | 2017-09-27 15:00 | DIAGNOSTIC IMAGING REPORT ---
HEAD WITHOUT CONTRAST (CT) CLINICAL HISTORY: 77 years-old Male presenting with EVALUATE ALTERED MENTAL STATUS/WEAKNESS, strokelike symptoms, headache. TECHNIQUE: Multidetector CT imaging of the head was performed without the use of intravenous contrast. IV contrast: None. A dose lowering technique was used consistent with the principles of ALARA (as low as reasonably achievable). COMPARISON: 02/03/2017. CT DOSE (mGy.cm): The estimated cumulative dose is 537.48 mGy.cm. FINDINGS: Supervisory Civil Engineer topogram: Unremarkable. Proportional ventricular and sulcal prominence, likely age-related parenchymal volume loss. Periventricular and subcortical white matter hypoattenuation, nonspecific but likely indicative of chronic small vessel ischemic change. No mass effect or midline shift. No hemorrhage or acute territorial infarct. No extra-axial fluid collection. Extensive mucosal thickening in the maxillary sinuses, ethmoid air cells, and sphenoid sinuses. Calvarium intact. Postsurgical changes of the bilateral globes with absent [facility] lenses. IMPRESSION: 1. Chronic small vessel ischemic change. No acute intracranial abnormality. 2. Extensive sinus opacification new from prior. Correlate clinically to exclude acute sinusitis. Electronically signed by: Christian Parkinson M.D. 09/27/2017 2:59 PM Dictated Date/Time: 09/27/2017 2:56 PM
[2017-09-27] MEDS: MoRPHine SULFATE 4 MG/ML 1 ML CARP\\VIAL IV PRN ×2 (15:02→15:42)
--- NOTE | 2017-09-27 15:04 | EMERGENCY ROOM VISIT NOTE ---
History Report prepared by Simi: Meghan Mane Under the Supervision of: Dr. Femi Urbano D.O. First contact with patient: 14:39 Chief Complaint: NEURO SYMPTOMS Stated Complaint: HIGHTOWER History of Present Illness The patient is a 77 year old male who presents to the Emergency Room with complaints of a constant severe left sided headache beginning about 3 hours ago. The patient denies any nausea, vomiting, chest pain, or shortness of breath. He took ibuprofen about two and a half hours ago with no relief. The patient has a history of COPD blood clots in his lung, occluded [place] arteries. The patient is on eliquis. Source of History: patient Onset: 3 hours ago Position: head Symptom Intensity: severe Quality: ache Timing: constant Associated Symptoms: + headache, No chest pain, No SOB, No nausea, No vomiting Review of Systems See HPI for pertinent positives & negatives. A total of 10 systems reviewed and were otherwise negative. Past Medical & Surgical Medical Problems: (1) Angina (2) Asthma (3) Benign hypertension (4) Bilateral hip replacement (5) Bronchitis (6) CAD (coronary artery disease) (7) Chest pain (8) COPD (chronic obstructive pulmonary disease) (9) COPD exacerbation (10) Diverticulitis (11) Diverticulosis (12) GERD (gastroesophageal reflux disease) (13) Headache (14) Heart disease (15) Hyperlipidemia (16) Hypertension (17) Neutropenic fever (18) Pneumonia (19) Pulmonary emboli (20) Splenomegaly (21) Stomach problems (22) Unstable angina Surgical Problems: (1) H/O prostatectomy (2) History of bilateral hip replacements Family History FH: diabetes mellitus FH: gallbladder disease FH: heart disease Hypertension Kidney disease Kidney stones Myocardial infarction Stroke Social History Smoking Status: Never Smoker Alcohol Use: none Drug Use: none Marital Status: Housing Status: lives with family Occupation Status: retired Current/Historical Medications Scheduled Apixaban (Eliquis), 5 MG PO BID Budesonide/Formoterol Fumarate (Symbicort 160/4.5 Inhaler), 1 PUFF PO BID Furosemide (Furosemide), 20 MG PO QAM Guaifenesin Ext Rel (Mucinex Ext Rel), 1,200 MG PO Q12H Guaifenesin/Codeine (Robitussin-Ac Syrup), 5 ML PO Q6H Ipratropium-Albuterol (Combivent Respimat), 1 PUFFS INH BID Ipratropium-Albuterol (Duoneb), 1 TREATMENT INH QID Isosorbide Mononitrate Ext Rel (Imdur Ext Rel), 60 MG PO QAM Levofloxacin (Levaquin), 500 MG PO DAILY Loratadine (Claritin), 10 MG PO DAILY Metoprolol Tartrate (Lopressor) (Lopressor), 25 MG PO BID Prednisone (Prednisone), 10 MG PO TAPER Ranitidine Hcl (Zantac), 300 MG PO BID Tiotropium [place] (Spiriva Handihaler), 1 PUFF INH QAM Scheduled PRN Benzonatate (Benzonatate), 100 MG PO [id number] PRN for Cough Nitroglycerin (Nitrostat), 0.4 MG UT UD PRN for Chest Pain Allergies Coded Allergies: Ibuprofen (Verified Allergy, Mild, ULCERS, 09/27/17) Physical Exam Vital Signs Date Time Temp Pulse Resp B/P (MAP) Pulse Ox O2 Delivery O2 Flow Rate FiO2 09/27/17 20:02 66 16 136/75 93 Nasal Cannula 3.0 09/27/17 19:33 70 09/27/17 18:05 74 14 178/75 90 Room Air 09/27/17 16:59 71 16 128/72 96 Nasal Cannula 2.0 70 140/81 78 132/77 09/27/17 16:45 71 10 128/72 92 Room Air 09/27/17 16:02 95 Nasal Cannula 2.0 09/27/17 16:02 145/82 09/27/17 16:00 76 13 89 09/27/17 15:45 78 16 95 09/27/17 15:32 124/87 09/27/17 15:30 86 19 93 09/27/17 15:15 78 12 94 09/27/17 15:08 92 Room Air 09/27/17 15:08 92 Room Air 09/27/17 15:08 76 09/27/17 15:02 130/74 09/27/17 14:58 122/80 09/27/17 14:37 36.3 72 24 112/62 92 Room Air Physical Exam GENERAL: Patient is awake, alert, and in no acute distress. Patient is uncomfortable and anxious appearing. EYES: The conjunctivae are clear. The pupils are round and reactive. EARS, NOSE, MOUTH AND THROAT: The nose is without any evidence of any deformity. Mucous membranes are moist tongue is midline NECK: The neck is nontender and supple. RESPIRATORY: Normal respiratory effort is noted there is no evidence of wheezing rhonchi or rales CARDIOVASCULAR: Regular rate and rhythm noted there no murmurs rubs or gallops normal S1 normal S2 GASTROINTESTINAL: The abdomen is soft. Bowel sounds are present in all quadrants. Abdomen is nontender MUSCULOSKELETAL/EXTREMITIES: There is no evidence of gross deformity full range of motion is noted in the hips and shoulders SKIN: There is no obvious evidence of any rash. There are no petechiae, pallor or cyanosis noted. NEUROLOGIC: Patient is awake alert and oriented x3 strength is symmetric patellar reflexes are 2+ bilaterally Medical Decision & Procedures ER Provider Diagnostic Interpretation: Radiology results as stated below per my review and radiologist interpretation: HEAD WITHOUT CONTRAST (CT) FINDINGS: Tailor Garment Fitter topogram: Unremarkable. Proportional ventricular and sulcal prominence, likely age-related parenchymal volume loss. Periventricular and subcortical white matter hypoattenuation, nonspecific but likely indicative of chronic small vessel ischemic change. No mass effect or midline shift. No hemorrhage or acute territorial infarct. No extra-axial fluid collection. Extensive mucosal thickening in the maxillary sinuses, ethmoid air cells, and sphenoid sinuses. Calvarium intact. Postsurgical changes of the bilateral globes with absent pilot point lenses. IMPRESSION: 1. Chronic small vessel ischemic change. No acute intracranial abnormality. 2. Extensive sinus opacification new from prior. Correlate clinically to exclude acute sinusitis. Electronically signed by: Christian Parkinson M.D. CHEST ONE VIEW PORTABLE FINDINGS: The heart is borderline enlarged. Mediastinal prominence is likely secondary to the AP technique and mediastinal fat deposition. There is no failure. There is no focal pulmonary consolidation. There are no pleural effusions. There is minor left basilar atelectasis/scarring. Arthritic changes are present within the shoulders.[ IMPRESSION: AP portable study. No acute findings. Electronically signed by: Bridger Veras M.D. NECK ANGIO WITH CONTRAST, HEAD ANGIO WITH CONTRAST FINDINGS: Tailor Garment Fitter topogram: Unremarkable. CTA HEAD: Intracranial portions of the internal carotid arteries demonstrate calcified atherosclerotic plaque without significant narrowing of the cavernous portions. Anterior and middle cerebral and anterior communicating arteries patent. A1 segment of the left anterior cerebral artery hypoplastic. Posterior circulation demonstrates codominant vertebral arteries with patent posterior inferior cerebellar, basilar, anterior inferior cerebellar, superior cerebellar, and posterior cerebral arteries. Posterior communicating arteries hypoplastic or aplastic bilaterally. No evidence of aneurysm, focal vessel occlusion, or significant stenosis. Significant opacification of the bilateral maxillary sinuses with postsurgical changes of maxillary antrostomies suggested. Extensive opacification of ethmoid air cells. CTA NECK: Atherosclerosis of the three-vessel aortic arch with patent origins of the branch vessels. Bilateral common carotid arteries patent though calcified atherosclerotic plaque noted at the bilateral carotid bulbs. This is not significantly narrow the origins of the internal carotid arteries. Extensive tortuosity of the proximal left internal carotid artery results in focal kinking (series 2 image 212). No evidence of dissection, focal vessel occlusion, or other significant stenosis. Soft tissues of the neck within normal limits allowing for the phase of contrast. Minimal dependent changes at the lungs likely atelectasis. Degenerative changes of the spine. IMPRESSION: 1. No evidence of aneurysm, focal vessel occlusion, or significant stenosis of the intracranial vessels. 2. Tortuosity of the proximal left internal carotid artery results in focal kinking. This may be due to chronic hypertension. No other evidence of dissection, focal vessel occlusion, or other significant stenosis of the cervical vessels. 3. Extensive sinus mucosal thickening could suggest acute sinusitis in the proper clinical setting. Electronically signed by: Christian Parkinson M.D. Laboratory Results 09/27/17 15:45 Red Blood Count 4.34, Mean Corpuscular Volume 88.7, Mean Corpuscular Hemoglobin 30.2, Mean Corpuscular Hemoglobin Concent 34.0, Mean Platelet Volume 9.1, Neutrophils (%) (Auto) 81.8, Lymphocytes (%) (Auto) 9.9, Monocytes (%) (Auto) 6.8, Eosinophils (%) (Auto) 0.0, Basophils (%) (Auto) 0.1, Neutrophils # (Auto) 10.90, Lymphocytes # (Auto) 1.32, Monocytes # (Auto) 0.91, Eosinophils # (Auto) 0.00, Basophils # (Auto) 0.01 09/27/17 15:45 Test 09/27/17 15:16 09/27/17 15:45 09/27/17 17:15 Bedside Glucose 240 mg/dl (70-99) White Blood Count 13.32 K/uL (4.8-10.8) Red Blood Count 4.34 M/uL (4.7-6.1) Hemoglobin 13.1 g/dL (14.0-18.0) Hematocrit 38.5 % (42-52) Mean Corpuscular Volume 88.7 fL (80-100) Mean Corpuscular Hemoglobin 30.2 pg (25-34) Mean Corpuscular Hemoglobin Concent 34.0 g/dl (32-36) Platelet Count 221 K/uL (130-400) Mean Platelet Volume 9.1 fL (7.4-10.4) Neutrophils (%) (Auto) 81.8 % Lymphocytes (%) (Auto) 9.9 % Monocytes (%) (Auto) 6.8 % Eosinophils (%) (Auto) 0.0 % Basophils (%) (Auto) 0.1 % Neutrophils # (Auto) 10.90 K/uL (1.4-6.5) Lymphocytes # (Auto) 1.32 K/uL (1.2-3.4) Monocytes # (Auto) 0.91 K/uL (0.11-0.59) Eosinophils # (Auto) 0.00 K/uL (0-0.5) Basophils # (Auto) 0.01 K/uL (0-0.2) RDW Standard Deviation 49.1 fL (36.4-46.3) RDW Coefficient of Variation 15.2 % (11.5-14.5) Immature Granulocyte % (Auto) 1.4 % Immature Granulocyte # (Auto) 0.18 K/uL (0.00-0.02) Erythrocyte Sedimentation Rate 28 mm/hr (0-14) Prothrombin Time 10.9 SECONDS (9.0-12.0) Prothromb Time International Ratio 1.0 (0.9-1.1) Activated Partial Thromboplast Time 28.6 SECONDS (21.0-31.0) Partial Thromboplastin Ratio 1.1 Anion Gap 7.0 mmol/L (3-11) Estimated GFR () 64.1 Estimated GFR (Non- 55.3 BUN/Creatinine Ratio 18.4 (10-20) Calcium Level 8.9 mg/dl (8.5-10.1) Magnesium Level 2.4 mg/dl (1.8-2.4) Total Bilirubin 0.4 mg/dl (0.2-1) Direct Bilirubin < 0.1 mg/dl (0-0.2) Aspartate Amino Transf (AST/SGOT) 19 U/L (15-37) Alanine Aminotransferase (ALT/SGPT) 26 U/L (12-78) Alkaline Phosphatase 75 U/L (45-117) Total Creatine Kinase 141 U/L (39-308) Creatine Kinase MB 2.8 ng/ml (0.5-3.6) Creatine Kinase MB Ratio 2.0 (0-3.0) Troponin I < 0.015 ng/ml (0-0.045) C-Reactive Protein 2.84 mg/dl (0-0.29) Total Protein 6.8 gm/dl (6.4-8.2) Albumin 3.4 gm/dl (3.4-5.0) Thyroid Stimulating Hormone (TSH) 1.650 uIu/ml (0.300-4.500) Urine Color YELLOW Urine Appearance CLEAR (CLEAR) Urine pH 5.0 (4.5-7.5) Urine Specific [place] > 1.045 (1.000-1.030) Urine Protein NEG (NEG) Urine Glucose (UA) NEG (NEG) Urine Ketones NEG (NEG) Urine Occult Blood NEG (NEG) Urine Nitrite NEG (NEG) Urine Bilirubin NEG (NEG) Urine Urobilinogen NEG (NEG) Urine Leukocyte Esterase NEG (NEG) Laboratory results per my review. Medications Administered Medications (Trade) Dose Ordered Sig/Guille Route Start Time Stop Time Status Last Admin Dose Admin Morphine Sulfate (MoRPHine SULFATE INJ) 4 mg Q15M PRN IV 09/27/17 14:45 10/11/17 14:44 09/27/17 15:42 4 MG Ondansetron HCl (Zofran Inj) 4 mg NOW STAT IV 09/27/17 14:42 09/27/17 14:44 DC 09/27/17 15:02 4 MG Hydromorphone HCl (Dilaudid Inj) 1 mg NOW STAT IV 09/27/17 16:01 09/27/17 16:02 DC 09/27/17 16:05 1 MG Hydromorphone HCl (Dilaudid Inj) 1 mg Q30M PRN IV 09/27/17 16:45 10/11/17 16:44 09/27/17 17:40 1 MG Ceftriaxone Sodium 2000 mg/ Dextrose 70 ml @ 100 mls/hr ONE STAT IV 09/27/17 17:18 09/27/17 17:59 DC 09/27/17 18:01 100 MLS/HR Sodium Chloride 1,000 ml @ 999 mls/hr Q1H1M STAT IV 09/27/17 19:20 09/27/17 20:20 DC 09/27/17 20:00 999 MLS/HR Diphenhydramine HCl (Benadryl Inj) 25 mg NOW STAT IV 09/27/17 19:20 09/27/17 19:21 DC 09/27/17 20:02 25 MG Dexamethasone Sodium Phosphate (Decadron Inj) 10 mg NOW STAT IV 09/27/17 19:20 09/27/17 19:21 DC 09/27/17 20:00 10 MG ECG Indication: weakness Rate (beats per minute): 78 Rhythm: normal sinus Findings: no ectopy, other (No acute ST segments ) Comparison ECG Date: 08/13/17 Change: no significant change ED Course 0240: The patient was evaluated in room A1. A complete history and physical examination were performed. 1442: Ordered Zofran Inj 4 mg IV. 1445: Ordered Morphine Sulfate 4 mg IV. 1601: Ordered Dilaudid Inj 1 mg IV. 1645: Ordered Dilaudid Inj 1 mg IV. 1718: Ordered Ceftriaxone Sodium 2,000 mg/Dextrose 70 ml @100 mls/hr IV. 1916: I discussed the patient's case with Dr. Jillian Osborne-[facility] and Dr. Hines-[facility]. The patient will be evaluated for further management. 1920: Ordered Decadron Inj 10 mg IV, Benadryl Inj 25 mg IV, NSS 1,000 ml @ 999 mls/hr IV. Medical Decision Differential diagnosis: Etiologies such as migraine headache, meningitis, sinusitis, CO exposure, ICH, SAH, infection, tumor, headache, sinus thrombosis, arterial dissection, as well as others were entertained. Nursing notes reviewed. The patient is a 77-year-old male who presented to the emergency department with a very acute headache. The patient states his headache was left-sided and at the base of his head. The pain was not radiating. The pain was very severe. The patient was treated with IV fluids IV pain medicine IV antiemetics in the emergency department. He was also given other medications for pain. Currently the patient is a history of COPD. He was seen by his primary care physician yesterday and started on an antibiotic as well as a steroid for presumed bronchitis. The patient's CT angiography of the head and neck did not reveal any acute abnormality that would explain the patient's symptoms. He was found have some degree of sinusitis on x-ray. The patient was then given IV antibiotics. I discussed the patient's laboratory and radiographic studies with him. I discussed his case with the on-call [facility] hospitalist. I felt the patient may require further inpatient management to reevaluate him to see that this headache was improving. Currently the patient is taking anticoagulants and I could not do a lumbar puncture at this time. His white blood cell count was mildly elevated but he was started on steroids yesterday. The patient still requested to be discharged home. He was encouraged to continue all medications as prescribed and follow-up with his primary care physician tomorrow. He was also encouraged return to the emergency department immediately if symptoms change worsen or the need arises. Medication Reconcilliation Current Medication List: was personally reviewed by me Blood Pressure Screening Patient's blood pressure: Elevated blood pressure Blood pressure disposition: Referred to PCP (evaluated by hospitalist ) Consults Time Called: 1853 Consulting Physician: Dr. Jillian Dorsey Returned Call: [phone] I discussed the patient's case with Dr. Jillian Dorsey and Dr. Fiona LEONE. The patient will be evaluated for further management. Impression Primary Impression: Headache Additional Impression: Sinusitis Scribe Attestation The scribe's documentation has been prepared under my direction and personally reviewed by me in its entirety. I confirm that the note above accurately reflects all work, treatment, procedures, and medical decision making performed by me. Departure Information Dispostion Being Evaluated By Hospitalist Referrals Brad Mason III, CRNP (PCP) Patient Instructions My [facility] Problem Qualifiers Primary Impression: Headache Headache type: unspecified Headache chronicity pattern: acute headache Intractability: not intractable Qualified Codes: R51 - Headache Additional Impression: Sinusitis Sinusitis location: unspecified location Chronicity: acute Recurrence: not specified as recurrent Qualified Codes: J01.90 - Acute sinusitis, unspecified
--- NOTE | 2017-09-27 15:33 | DIAGNOSTIC IMAGING REPORT ---
CHEST ONE VIEW PORTABLE CLINICAL HISTORY: Altered mental status COMPARISON STUDY: 09/26/2017 FINDINGS: The heart is borderline enlarged. Mediastinal prominence is likely secondary to the AP technique and mediastinal fat deposition. There is no failure. There is no focal pulmonary consolidation. There are no pleural effusions. There is minor left basilar atelectasis/scarring. Arthritic changes are present within the shoulders.[ IMPRESSION: AP portable study. No acute findings. Electronically signed by: Bridger Veras M.D. 09/27/2017 3:32 PM Dictated Date/Time: 09/27/2017 3:31 PM
[2017-09-27 15:57] LABS: BASO % 0.1 %; BASO ABS # 0.01 K/uL (0-0.2); COMPLETE YES; HEMATOCRIT 38.5 % (42-52); IG% 1.4 %; LYMPH % 9.9 %; LYMPH ABS # 1.32 K/uL (1.2-3.4); MEAN CELL VOLUME 88.7 fL (80-100); MEAN CORPUSCULAR HEMOGLOBIN 30.2 pg (25-34); MEAN PLATELET VOLUME 9.1 fL (7.4-10.4); MONO % 6.8 %; NEUT % 81.8 %; PLATELET COUNT 221 K/uL (130-400); RED BLOOD COUNT 4.34 M/uL (4.7-6.1); WHITE BLOOD COUNT 13.32 K/uL (4.8-10.8)
[2017-09-27] MEDS ORDERED: HYDROmorphone INJ 1 MG/ML SYR IV STA (16:01)
[2017-09-27] MEDS ORDERED: PRED10TA PO (16:02)
[2017-09-27] MEDS ORDERED: LEVO1TAB33 PO (16:02)
[2017-09-27 16:07] LABS: PARTIAL THROMBOPLASTIN RATIO 1.1; PROTHROMBIN TIME (PATIENT) 10.9 SECONDS (9.0-12.0)
[2017-09-27 16:15] LABS: ALT/SGPT 26 U/L (12-78); BUN/CREATININE RATIO 18.4 (10-20); CALCIUM 8.9 mg/dl (8.5-10.1); CARBON DIOXIDE 27 mmol/L (21-32); CHLORIDE 104 mmol/L (98-107); CREATININE 1.24 mg/dl (0.60-1.40); GLUCOSE 208 mg/dl (70-99); MAGNESIUM 2.4 mg/dl (1.8-2.4); POTASSIUM 4.6 mmol/L (3.5-5.1); SODIUM 138 mmol/L (136-145)
[2017-09-27] MEDS ORDERED: OPTIRAY 320 IV PRN (16:15)
[2017-09-27 16:26] LABS: ALKALINE PHOSPHATASE 75 U/L (45-117); AST/SGOT 19 U/L (15-37)
[2017-09-27] MEDS ORDERED: HYDROmorphone INJ 1 MG/ML SYR IV PRN (16:45)
--- NOTE | 2017-09-27 16:55 | DIAGNOSTIC IMAGING REPORT ---
NECK ANGIO WITH CONTRAST, HEAD ANGIO WITH CONTRAST CLINICAL HISTORY: 77 years-old Male presenting with left-sided headache. TECHNIQUE: Multidetector CT angiography of the head and neck was performed after the administration of intravenous contrast. 3-D volumetric and/or maximum intensity projection (MIP) images were subsequently reconstructed for review. IV contrast: 118 mL of Optiray 320. A dose lowering technique was used consistent with the principles of ALARA (as low as reasonably achievable). Stenosis measurements were based on NASCET-like criteria. COMPARISON: 10/14/2014. CT DOSE (mGy.cm): The estimated cumulative dose is 631.62 mGy.cm. FINDINGS: Craft Coordinator topogram: Unremarkable. CTA HEAD: Intracranial portions of the internal carotid arteries demonstrate calcified atherosclerotic plaque without significant narrowing of the cavernous portions. Anterior and middle cerebral and anterior communicating arteries patent. A1 segment of the left anterior cerebral artery hypoplastic. Posterior circulation demonstrates codominant vertebral arteries with patent posterior inferior cerebellar, basilar, anterior inferior cerebellar, superior cerebellar, and posterior cerebral arteries. Posterior communicating arteries hypoplastic or aplastic bilaterally. No evidence of aneurysm, focal vessel occlusion, or significant stenosis. Significant opacification of the bilateral maxillary sinuses with postsurgical changes of maxillary antrostomies suggested. Extensive opacification of ethmoid air cells. CTA NECK: Atherosclerosis of the three-vessel aortic arch with patent origins of the branch vessels. Bilateral common carotid arteries patent though calcified atherosclerotic plaque noted at the bilateral carotid bulbs. This is not significantly narrow the origins of the internal carotid arteries. Extensive tortuosity of the proximal left internal carotid artery results in focal kinking (series 2 image 212). No evidence of dissection, focal vessel occlusion, or other significant stenosis. Soft tissues of the neck within normal limits allowing for the phase of contrast. Minimal dependent changes at the lungs likely atelectasis. Degenerative changes of the spine. IMPRESSION: 1. No evidence of aneurysm, focal vessel occlusion, or significant stenosis of the intracranial vessels. 2. Tortuosity of the proximal left internal carotid artery results in focal kinking. This may be due to chronic hypertension. No other evidence of dissection, focal vessel occlusion, or other significant stenosis of the cervical vessels. 3. Extensive sinus mucosal thickening could suggest acute sinusitis in the proper clinical setting. Electronically signed by: Christian Parkinson M.D. 09/27/2017 4:54 PM Dictated Date/Time: 09/27/2017 4:46 PM
[2017-09-27] MEDS ORDERED: CEFTRIAXONE SOD INJ 2,000 MG in DEXTROSE 5% 50ML 50 ML IV STA (17:18)
[2017-09-27 17:57] LABS: BLOOD UREA NITROGEN 23 mg/dl (7-18)
[2017-09-27 17:59] LABS: URINE APPEARANCE CLEAR (CLEAR); URINE BILIRUBIN NEG (NEG); URINE COLOR YELLOW; URINE NITRITE NEG (NEG); URINE SPECIFIC GRAVITY > 1.045 (1.000-1.030); UROBILINOGEN NEG (NEG)
[2017-09-27 18:12] LABS: MANUAL MICROSCOPIC REQUIRED? NO; REVIEW REQ? NO
[2017-09-27] MEDS ORDERED: DEXAMETHASONE SOD INJ 4 MG/ML VIAL IV STA (19:20)
[2017-09-27] MEDS ORDERED: DiphenhydrAMINE HCL 50 MG/ML VIAL IV STA (19:20)
[2017-09-27] MEDS ORDERED: SODIUM CHLORIDE 0.9% 1000ML 1,000 ML IV STA (19:20)
[2017-09-27] MEDS ORDERED: CEFD1CAP14 PO (20:42)
[2017-09-27] MEDS ORDERED: OXYC1TAB3 PO (20:44)
[2017-09-27] MEDS ORDERED: OXYCODONE IR HOME PACK PO ONE (20:45)
[2017-09-27] MEDS ORDERED: ONDANSETRON HOME PACK 4MG OD TAB PO ONE (20:45)
[2017-09-27 20:48] VITALS: O2SAT 88
[2017-09-27 21:13] VITALS: BP 140/83; PULSE 78; O2SAT 90
[2017-09-28] MEDS ORDERED: MONT1TAB3 PO (16:19)
[2017-09-28] MEDS ORDERED: FURO-85 PO (16:19)
== END 2017-09-27 21:39 | disposition home or self-care (01) ==
LOC: C.EDB 14:35
DX: R51 Headache (principal); J01.90 Acute sinusitis, unspecified; J45.909 Unspecified asthma, uncomplicated; I10 Essential (primary) hypertension; I25.10 Atherosclerotic heart disease of native coronary artery without angina pectoris; J44.9 Chronic obstructive pulmonary disease, unspecified; K21.9 Gastro-esophageal reflux disease without esophagitis; K57.92 Diverticulitis of intestine, part unspecified, without perforation or abscess without bleeding; K57.90 Diverticulosis of intestine, part unspecified, without perforation or abscess without bleeding; I51.9 Heart disease, unspecified; E78.5 Hyperlipidemia, unspecified; Z83.3 Family history of diabetes mellitus; Z82.49 Family history of ischemic heart disease and other diseases of the circulatory system; Z82.3 Family history of stroke

== ENCOUNTER 2017-09-28 15:46 | Emergency (ER) | payer BC ==
[~2017-09-28] VITALS: Ht 160 cm; Wt 100.0 kg
[2017-09-28 15:46] VITALS: TEMP 36.8
[~2017-09-28 15:46] MED LIST changes: +CEFD1CAP14 PO; +LEVO1TAB33 PO; +OXYC1TAB3 PO; -PRD20 PO; +PRED10TA PO
[2017-09-28] MEDS ORDERED: PROMETHAZINE HCL INJ 12.5 MG in SODIUM CHLORIDE 0.9% 50ML 50 ML IV STA (16:12)
[2017-09-28] MEDS ORDERED: MoRPHine SULFATE 4 MG/ML 1 ML CARP\\VIAL IV PRN (16:15)
--- NOTE | 2017-09-28 16:16 | EMERGENCY ROOM VISIT NOTE ---
History Report prepared by Simi: Alejandro Liz Under the Supervision of: Dr. Femi Urbano D.O. First contact with patient: 15:48 Chief Complaint: HEADACHE Stated Complaint: HEADACHE History of Present Illness The patient is a 77 year old male who presents to the Emergency Room with complaints of an improving headache that started this afternoon during lunch. The patient's states that the patient had an appointment with his doctor, and due to the pain, he was instructed to come to the ED. He notes that shaking his head makes the pain worse. and nothing makes it any better. He denies any chest pain, shortness of breath, abdominal pain, and fever. Additionally, the states that the patient was staggering this morning. The patient was seen in the ED last night for an acute onset headache in the left occipital region that radiated down his neck. He had a CTA of the head and neck, and his pain was under control. He was sent home last night with pain medications and instructions to follow up. Source of History: patient, spouse/significant other Onset: this afternoon Position: head Quality: ache Timing: other (improving) Associated Symptoms: No chest pain, No SOB, No abdominal pain Note: Associated symptoms: Staggering Review of Systems See HPI for pertinent positives & negatives. A total of 10 systems reviewed and were otherwise negative. Past Medical & Surgical Medical Problems: (1) Angina (2) Asthma (3) Benign hypertension (4) Bilateral hip replacement (5) Bronchitis (6) CAD (coronary artery disease) (7) Chest pain (8) COPD (chronic obstructive pulmonary disease) (9) COPD exacerbation (10) Diverticulitis (11) Diverticulosis (12) GERD (gastroesophageal reflux disease) (13) Headache (14) Heart disease (15) Hyperlipidemia (16) Hypertension (17) Neutropenic fever (18) Pneumonia (19) Pulmonary emboli (20) Splenomegaly (21) Stomach problems (22) Unstable angina Surgical Problems: (1) H/O prostatectomy (2) History of bilateral hip replacements Family History FH: diabetes mellitus FH: gallbladder disease FH: heart disease Hypertension Kidney disease Kidney stones Myocardial infarction Stroke Social History Smoking Status: Never Smoker Alcohol Use: none Drug Use: none Marital Status: Housing Status: lives with family Occupation Status: retired Current/Historical Medications Scheduled Apixaban (Eliquis), 5 MG PO BID Budesonide/Formoterol Fumarate (Symbicort 160/4.5 Inhaler), 1 PUFF PO BID Cefdinir (Omnicef), 300 MG PO Q12H Furosemide (Lasix), 40 MG PO DAILY Guaifenesin Ext Rel (Mucinex Ext Rel), 1,200 MG PO Q12H Guaifenesin/Codeine (Robitussin-Ac Syrup), 5 ML PO Q6H Ipratropium-Albuterol (Combivent Respimat), 1 PUFFS INH BID Isosorbide Mononitrate Ext Rel (Imdur Ext Rel), 60 MG PO QAM Levofloxacin (Levaquin), 500 MG PO DAILY Loratadine (Claritin), 10 MG PO DAILY Metoprolol Tartrate (Lopressor) (Lopressor), 25 MG PO BID Montelukast Sodium (Singulair), 10 MG PO DAILY Prednisone (Prednisone), 10 MG PO TAPER Ranitidine Hcl (Zantac), 300 MG PO BID Tiotropium [place] (Spiriva Handihaler), 1 PUFF INH QAM Scheduled PRN Benzonatate (Benzonatate), 100 MG PO 4XDQ4H PRN for Cough Ipratropium-Albuterol (Duoneb), 1 TREATMENT INH QID PRN for SOB/Wheezing Nitroglycerin (Nitrostat), 0.4 MG UT UD PRN for Chest Pain Oxycodone Immediate Rel Tab (Roxicodone Ir), 1-2 TAB PO Q4H PRN for Severe Pain Allergies Coded Allergies: Ibuprofen (Verified Allergy, Mild, ULCERS, 09/28/17) Physical Exam Vital Signs Date Time Temp Pulse Resp B/P (MAP) Pulse Ox O2 Delivery O2 Flow Rate FiO2 09/28/17 21:19 62 18 124/80 94 09/28/17 19:31 57 19 148/71 94 Room Air 09/28/17 19:01 61 20 140/77 95 Room Air 09/28/17 18:31 125/80 09/28/17 18:16 57 18 92 09/28/17 18:01 161/66 09/28/17 17:46 62 18 94 09/28/17 17:31 138/63 09/28/17 17:16 60 18 92 09/28/17 17:08 136/77 09/28/17 17:08 61 18 136/77 95 Room Air 09/28/17 17:06 95 Room Air 09/28/17 17:06 95 Room Air 09/28/17 16:46 64 09/28/17 16:46 64 13 09/28/17 15:57 144/79 09/28/17 15:46 36.8 69 18 144/79 94 Room Air Physical Exam GENERAL: Patient is awake, alert, and appears anxious and uncomfortable. EYES: The conjunctivae are clear. The pupils are round and reactive. EARS, NOSE, MOUTH AND THROAT: The nose is without any evidence of any deformity. Mucous membranes are moist tongue is midline NECK: The neck is nontender and supple. RESPIRATORY: Normal respiratory effort is noted there is no evidence of wheezing rhonchi or rales CARDIOVASCULAR: Regular rate and rhythm noted there no murmurs rubs or gallops normal S1 normal S2 GASTROINTESTINAL: The abdomen is soft. Bowel sounds are present in all quadrants. Abdomen is nontender MUSCULOSKELETAL/EXTREMITIES: There is no evidence of gross deformity full range of motion is noted in the hips and shoulders SKIN: There is no obvious evidence of any rash. There are no petechiae, pallor or cyanosis noted. NEUROLOGIC: Patient is awake alert and oriented x3 Medical Decision & Procedures ER Provider Diagnostic Interpretation: Radiology results as stated below per my review and radiologist interpretation: HEAD CT NONCONTRAST CT DOSE: 712.55 mGy.cm HISTORY: EVALUATE ALTERED MENTAL STATUS/WEAKNESS TECHNIQUE: Multiaxial CT images of the head were performed without the use of intravenous contrast. Automated exposure control was utilized for this study. A dose lowering technique was utilized adhering to the principles of ALARA. Comparison: Head CT 8 09/27/2017. Findings: Mucosal thickening and small fluid levels within the maxillary sinuses. There is also mild mucosal thickening within the right sphenoid sinus and ethmoid air cells. The mastoid air cells are clear. This remains unchanged. The calvarium and skull base are intact. There is no mass, hematoma, midline shift, acute infarct. White matter hypodensity is nonspecific but suggestive of microvascular ischemic change. The ventricles and sulci demonstrate mild age-related involutional changes. Impression: No significant change compared to the prior study. No acute intracranial abnormality. Sinuses disease as described above. Electronically signed by: Casa Vieira M.D. 09/28/2017 5:21 PM Dictated Date/Time: 09/28/2017 5:07 PM Laboratory Results 09/28/17 16:49 Red Blood Count 4.07, Mean Corpuscular Volume 90.4, Mean Corpuscular Hemoglobin 30.0, Mean Corpuscular Hemoglobin Concent 33.2, Mean Platelet Volume 9.4, Neutrophils (%) (Auto) 85.7, Lymphocytes (%) (Auto) 7.6, Monocytes (%) (Auto) 5.5, Eosinophils (%) (Auto) 0.0, Basophils (%) (Auto) 0.1, Neutrophils # (Auto) 9.89, Lymphocytes # (Auto) 0.88, Monocytes # (Auto) 0.63, Eosinophils # (Auto) 0.00, Basophils # (Auto) 0.01 09/28/17 16:49 Test 09/28/17 16:49 09/28/17 18:00 White Blood Count 11.54 K/uL (4.8-10.8) Red Blood Count 4.07 M/uL (4.7-6.1) Hemoglobin 12.2 g/dL (14.0-18.0) Hematocrit 36.8 % (42-52) Mean Corpuscular Volume 90.4 fL (80-100) Mean Corpuscular Hemoglobin 30.0 pg (25-34) Mean Corpuscular Hemoglobin Concent 33.2 g/dl (32-36) Platelet Count 198 K/uL (130-400) Mean Platelet Volume 9.4 fL (7.4-10.4) Neutrophils (%) (Auto) 85.7 % Lymphocytes (%) (Auto) 7.6 % Monocytes (%) (Auto) 5.5 % Eosinophils (%) (Auto) 0.0 % Basophils (%) (Auto) 0.1 % Neutrophils # (Auto) 9.89 K/uL (1.4-6.5) Lymphocytes # (Auto) 0.88 K/uL (1.2-3.4) Monocytes # (Auto) 0.63 K/uL (0.11-0.59) Eosinophils # (Auto) 0.00 K/uL (0-0.5) Basophils # (Auto) 0.01 K/uL (0-0.2) RDW Standard Deviation 50.9 fL (36.4-46.3) RDW Coefficient of Variation 15.6 % (11.5-14.5) Immature Granulocyte % (Auto) 1.1 % Immature Granulocyte # (Auto) 0.13 K/uL (0.00-0.02) Erythrocyte Sedimentation Rate 18 mm/hr (0-14) Anion Gap 8.0 mmol/L (3-11) Est Creatinine Clear Calc Drug Dose 57.0 ml/min Estimated GFR () 72.5 Estimated GFR (Non- 62.6 BUN/Creatinine Ratio 21.2 (10-20) Calcium Level 8.7 mg/dl (8.5-10.1) Magnesium Level 2.4 mg/dl (1.8-2.4) Total Bilirubin 0.3 mg/dl (0.2-1) Direct Bilirubin < 0.1 mg/dl (0-0.2) Aspartate Amino Transf (AST/SGOT) 21 U/L (15-37) Alanine Aminotransferase (ALT/SGPT) 25 U/L (12-78) Alkaline Phosphatase 64 U/L (45-117) Troponin I < 0.015 ng/ml (0-0.045) C-Reactive Protein 1.50 mg/dl (0-0.29) Total Protein 6.3 gm/dl (6.4-8.2) Albumin 3.2 gm/dl (3.4-5.0) Thyroid Stimulating Hormone (TSH) 0.627 uIu/ml (0.300-4.500) Prothrombin Time 10.7 SECONDS (9.0-12.0) Prothromb Time International Ratio 1.0 (0.9-1.1) Activated Partial Thromboplast Time 27.6 SECONDS (21.0-31.0) Partial Thromboplastin Ratio 1.1 Laboratory results per my review. Medications Administered Medications (Trade) Dose Ordered Sig/Guille Route Start Time Stop Time Status Last Admin Dose Admin Promethazine HCl 12.5 mg/Sodium Chloride 50.5 ml @ 204 mls/hr NOW STAT IV 09/28/17 16:12 09/28/17 21:08 DC 09/28/17 17:06 204 MLS/HR ECG Indication: other (headache) Rate (beats per minute): 65 Rhythm: normal sinus Findings: no ectopy, other (No acute ST segment abnormality) Comparison ECG Date: 09/27/17 Change: no significant change ED Course 1548: The patient was evaluated in room C12. A complete history and physical examination were performed. 1612: Promethazine HCl 12.5mg/ Sodium Chloride 50.5ml @ 204mls/hr IV 1615: Morphine Sulfate 4mg IV 174: I discussed the patient's case with Dr. Walsh. The patient will be evaluated for further management. 1744: I reevaluated the patient, and he is doing well. I discussed the discharge instructions, and he was agreeable. 2058: The patient is going to be discharged home. Medical Decision Differential diagnosis: Etiologies such as migraine headache, meningitis, sinusitis, CO exposure, ICH, SAH, infection, tumor, headache, sinus thrombosis, arterial dissection, as well as others were entertained. Nursing notes reviewed. The patient's previous electronic medical records reviewed. The patient is a 77-year-old male who I had the opportunity to care for last evening. The patient had a very severe headache and does not have a history of chronic headaches. He has a history of coronary artery disease and currently takes blood thinners. The patient had a normal neurologic exam last evening. CT of the head as well as neck angiography was done last evening. No definite intracranial abnormality was noted but the patient had significant sinusitis. He was treated with antibiotics in the emergency department. The patient was feeling somewhat improved but because of his medical history I asked the patient to be evaluated by the hospitalist. The patient was feeling somewhat improved and decided to go home. The patient went to see his primary care physician today and had a severe headache in the office and was sent back to the emergency department via ambulance. The patient does not have any change in his neurologic exam however because of the degree of pain I discussed his case with the on-call [facility] hospitalist. They've agreed to evaluate the patient in the emergency department for further management and disposition. The patient may require further neuroimaging or possibly further IV antibiotics for the presumed sinusitis. The patient was reevaluated multiple times. I discussed patient's laboratory and radiographic studies with him. The patient had an MRI that was ordered by the [facility] hospitalist group. I discussed the patient's MRI report with him. 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 The patient denies having any trauma in the past. I'm unsure if this is the cause the patient's symptoms. I discussed it with him and asked him to follow-up with his primary care physician and if the symptoms appear to be more related to the cervical spine he may require a referral to orthopedic spine. The patient otherwise was encouraged to continue all medications as prescribed and return to the emergency department immediately if symptoms change worsen or the need arises. Medication Reconcilliation Current Medication List: was personally reviewed by me Blood Pressure Screening Patient's blood pressure: Elevated blood pressure Monitored by the hospitalist Consults Time Called: 1738 Consulting Physician: Dr. Walsh Returned Call: 1744 I discussed the patient's case with Dr. Walsh. The patient will be evaluated for further management. Impression Primary Impression: Intractable headache Additional Impression: Sinusitis Scribe Attestation The scribe's documentation has been prepared under my direction and personally reviewed by me in its entirety. I confirm that the note above accurately reflects all work, treatment, procedures, and medical decision making performed by me. Departure Information Dispostion Home / Self-Care Referrals Brad Mason III, CRNP (PCP) Forms HOME CARE DOCUMENTATION FORM, IMPORTANT VISIT INFORMATION Patient Instructions Headaches Sinus, My [facility], Sinusitis Acute Additional Instructions Continue all medications as prescribed. Follow-up with your family doctor soon as possible. Problem Qualifiers Primary Impression: Intractable headache Headache type: unspecified Headache chronicity pattern: episodic headache Qualified Codes: R51 - Headache Additional Impression: Sinusitis Sinusitis location: unspecified location Chronicity: acute Recurrence: not specified as recurrent Qualified Codes: J01.90 - Acute sinusitis, unspecified
[2017-09-28] MEDS ORDERED: FURO-85 PO (16:19)
[2017-09-28] MEDS ORDERED: MONT1TAB3 PO (16:19)
[2017-09-28 16:21] VITALS: Ht 160 cm; Wt 100.0 kg
[2017-09-28 17:06] VITALS: O2SAT 95
[2017-09-28 17:08] LABS: BASO % 0.1 %; BASO ABS # 0.01 K/uL (0-0.2); COMPLETE YES; HEMATOCRIT 36.8 % (42-52); IG% 1.1 %; LYMPH % 7.6 %; LYMPH ABS # 0.88 K/uL (1.2-3.4); MEAN CELL VOLUME 90.4 fL (80-100); MEAN CORPUSCULAR HGB CONC 33.2 g/dl (32-36); MEAN PLATELET VOLUME 9.4 fL (7.4-10.4); MONO % 5.5 %; NEUT % 85.7 %; PLATELET COUNT 198 K/uL (130-400); RED BLOOD COUNT 4.07 M/uL (4.7-6.1); WHITE BLOOD COUNT 11.54 K/uL (4.8-10.8)
--- NOTE | 2017-09-28 17:22 | DIAGNOSTIC IMAGING REPORT ---
HEAD CT NONCONTRAST CT DOSE: 712.55 mGy.cm HISTORY: EVALUATE ALTERED MENTAL STATUS/WEAKNESS TECHNIQUE: Multiaxial CT images of the head were performed without the use of intravenous contrast. Automated exposure control was utilized for this study. A dose lowering technique was utilized adhering to the principles of ALARA. Comparison: Head CT 8 09/27/2017. Findings: Mucosal thickening and small fluid levels within the maxillary sinuses. There is also mild mucosal thickening within the right sphenoid sinus and ethmoid air cells. The mastoid air cells are clear. This remains unchanged. The calvarium and skull base are intact. There is no mass, hematoma, midline shift, acute infarct. White matter hypodensity is nonspecific but suggestive of microvascular ischemic change. The ventricles and sulci demonstrate mild age-related involutional changes. Impression: No significant change compared to the prior study. No acute intracranial abnormality. Sinuses disease as described above. Electronically signed by: Casa Vieira M.D. 09/28/2017 5:21 PM Dictated Date/Time: 09/28/2017 5:07 PM
[2017-09-28 17:33] LABS: ALT/SGPT 25 U/L (12-78); BLOOD UREA NITROGEN 24 mg/dl (7-18); BUN/CREATININE RATIO 21.2 (10-20); CALCIUM 8.7 mg/dl (8.5-10.1); CARBON DIOXIDE 27 mmol/L (21-32); CHLORIDE 104 mmol/L (98-107); CREATININE 1.12 mg/dl (0.60-1.40); GLUCOSE 284 mg/dl (70-99); MAGNESIUM 2.4 mg/dl (1.8-2.4); POTASSIUM 3.9 mmol/L (3.5-5.1); SODIUM 139 mmol/L (136-145)
[2017-09-28 17:47] LABS: ALKALINE PHOSPHATASE 64 U/L (45-117); AST/SGOT 21 U/L (15-37); THYROID STIMULATING HORMONE 0.627 uIu/ml (0.300-4.500)
[2017-09-28 18:25] LABS: PARTIAL THROMBOPLASTIN RATIO 1.1; PROTHROMBIN TIME (PATIENT) 10.7 SECONDS (9.0-12.0)
[2017-09-28] MEDS ORDERED: GADAVIST IV PRN (20:30)
--- NOTE | 2017-09-28 20:45 | DIAGNOSTIC IMAGING REPORT ---
MRI OF THE BRAIN WITHOUT AND WITH IV CONTRAST CLINICAL HISTORY: Severe headache. Balance difficulty. COMPARISON STUDY: No previous studies for comparison. TECHNIQUE: MRI of the brain was performed from the vertex to the skull base utilizing various T1 and T2 weighted sequences. Following the IV administration of 10 mL of Gadavist contrast, additional enhanced images were obtained. FINDINGS: Sagittal T1, axial diffusion, proton density and T2 weighted axial, coronal FLAIR, and pre and post axial T1-weighted images were acquired. These were supplemented with post gadolinium coronal T1 weighted images. 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 This is been previously described. No intra or extra-axial mass lesions are visualized. Axial diffusion-weighted images reveal no evidence of acute or subacute infarction. There is no evidence of ventricular dilatation. Proton density T2-weighted and FLAIR images reveal scattered foci of increased T2 signal within the white matter, likely on a small vessel basis. There are no abnormal flow voids. There is no evidence of pathologic enhancement. There is moderately extensive pansinus disease. IMPRESSION: 1. No acute intracranial findings 2. No evidence of intracranial mass 3. No evidence of acute or subacute infarction 4. 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 09/28/2017 8:43 PM Dictated Date/Time: 09/28/2017 8:36 PM
[2017-09-28] MEDS ORDERED: GUAIFENESIN 600 MG TABCR PO SCH (21:00)
[2017-09-28] MEDS ORDERED: NON-FORMULARY MEDICATION (Apixaban (Eliquis) 5 MG) PO SCH (21:00)
[2017-09-28] MEDS ORDERED: GUAIFENESIN/CODEINE 200MG/20MG 10ML UDC PO SCH (21:00)
[2017-09-28] MEDS ORDERED: BENZONATATE 100MG CAP PO PRN (21:00)
[2017-09-28] MEDS ORDERED: BUDESONIDE/FORMOTEROL FUMARATE 160/4.5 60 PUFFS/INHALER INH SCH (21:00)
[2017-09-28] MEDS ORDERED: OXYCODONE HCL IR 5 MG TAB (IMMEDIATE RELEASE) PO PRN (21:00)
[2017-09-28] MEDS ORDERED: METOPROLOL TARTRATE 25 MG TAB PO SCH (21:00)
[2017-09-28] MEDS ORDERED: ALBUT/IPRATROP 3MG/0.5MG NEB 3 ML VIAL INH PRN (21:00)
[2017-09-28] MEDS ORDERED: RANITIDINE HCL 150 MG TAB PO SCH (21:00)
[2017-09-28 21:19] VITALS: BP 124/80; PULSE 62; O2SAT 94
[2017-09-29] MEDS ORDERED: ISOSORBIDE MONONITRATE 60 MG TABCR PO SCH (09:00)
[2017-09-29] MEDS ORDERED: LORATADINE 10 MG TAB PO SCH (09:00)
[2017-09-29] MEDS ORDERED: MONTELUKAST SOD 10 MG TAB PO SCH (09:00)
[2017-09-29] MEDS ORDERED: FUROSEMIDE 40 MG TAB PO SCH (09:00)
[2017-09-29] MEDS ORDERED: GUAISYP4 PO (16:20)
== END 2017-09-28 21:20 | disposition home or self-care (01) ==
LOC: EDBD 15:46 → C.EDC 15:48
DX: R51 Headache (principal); J32.9 Chronic sinusitis, unspecified; K21.9 Gastro-esophageal reflux disease without esophagitis; J45.909 Unspecified asthma, uncomplicated; I11.0 Hypertensive heart disease with heart failure; J44.9 Chronic obstructive pulmonary disease, unspecified; E78.5 Hyperlipidemia, unspecified; Z79.01 Long term (current) use of anticoagulants; Z79.52 Long term (current) use of systemic steroids; Z83.3 Family history of diabetes mellitus; Z82.49 Family history of ischemic heart disease and other diseases of the circulatory system; Z84.1 Family history of disorders of kidney and ureter; Z82.0 Family history of epilepsy and other diseases of the nervous system; Z83.79 Family history of other diseases of the digestive system

== ENCOUNTER 2017-09-29 15:24 | Emergency (ER) | payer BC ==
[~2017-09-29] VITALS: Ht 154.9 cm; Wt 94.4 kg
[~2017-09-29 15:24] MED LIST changes: +FURO-85 PO; -LSX20 PO; +MONT1TAB3 PO
[2017-09-29 15:38] VITALS: TEMP 36.6; Ht 154.9 cm; Wt 94.4 kg
--- NOTE | 2017-09-29 15:54 | EMERGENCY ROOM VISIT NOTE ---
History Report prepared by Willyibmandeep: Renetta Michel Under the Supervision of: Dr. Jasmine Jacinto D.O. First contact with patient: 15:42 Chief Complaint: HEADACHE Stated Complaint: HIGHTOWER History of Present Illness The patient is a 77 year old male who presents to the Emergency Room with complaints of an intermittent left sided headache for the past 3 days. He is accompanied by his . He was seen here in the ED twice in the past 2 days. He rates his pain as a 10/10 in severity and states the pain starts in his neck and goes up the back of his head to the left side. OxyContin has provided minimal relief. He last took 2 pills of the Oxy at 1415 today. Position does not change his pain. The patient denies any history of headaches. He denies any recent falls or head injuries. He denies any recent vision changes, fevers, chills, nausea or vomiting. His reports he has been on Prednisone and an antibiotic since Sunday for a COPD exacerbation. On review of EMR, pt seen here recently and had CT/CTA, MRI and two sets of labs which appear to be improving including ESR. 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 A total of 10 systems reviewed and were otherwise negative. Past Medical & Surgical Medical Problems: (1) Angina (2) Asthma (3) Benign hypertension (4) Bilateral hip replacement (5) Bronchitis (6) CAD (coronary artery disease) (7) Chest pain (8) COPD (chronic obstructive pulmonary disease) (9) COPD exacerbation (10) Diverticulitis (11) Diverticulosis (12) GERD (gastroesophageal reflux disease) (13) Headache (14) Heart disease (15) Hyperlipidemia (16) Hypertension (17) Neutropenic fever (18) Pneumonia (19) Pulmonary emboli (20) Splenomegaly (21) Stomach problems (22) Unstable angina Surgical Problems: (1) H/O prostatectomy (2) History of bilateral hip replacements Family History FH: diabetes mellitus FH: gallbladder disease FH: heart disease Hypertension Kidney disease Kidney stones Myocardial infarction Stroke Social History Smoking Status: Never Smoker Alcohol Use: none Drug Use: none Marital Status: Housing Status: lives with family Occupation Status: retired Current/Historical Medications Scheduled Apixaban (Eliquis), 5 MG PO BID Budesonide/Formoterol Fumarate (Symbicort 160/4.5 Inhaler), 1 PUFF PO BID Furosemide (Lasix), 40 MG PO DAILY Guaifenesin Ext Rel (Mucinex Ext Rel), 1,200 MG PO Q12H Guaifenesin/Codeine (Robitussin-Ac Syrup), 5 ML PO Q6H Ipratropium-Albuterol (Combivent Respimat), 1 PUFFS INH BID Isosorbide Mononitrate Ext Rel (Imdur Ext Rel), 60 MG PO QAM Levofloxacin (Levaquin), 500 MG PO DAILY Metoprolol Tartrate (Lopressor) (Lopressor), 25 MG PO BID Montelukast Sodium (Singulair), 10 MG PO DAILY Prednisone (Prednisone), 10 MG PO TAPER Ranitidine Hcl (Zantac), 300 MG PO BID Tiotropium [place] (Spiriva Handihaler), 1 PUFF INH QAM Scheduled PRN Benzonatate (Benzonatate), 100 MG PO 4XDQ4H PRN for Cough Guaifenesin/Codeine (Robitussin-Ac Syrup), 5 ML PO Q6H PRN for Cough Ipratropium-Albuterol (Duoneb), 1 TREATMENT INH QID PRN for SOB/Wheezing Nitroglycerin (Nitrostat), 0.4 MG UT UD PRN for Chest Pain Oxycodone Immediate Rel Tab (Roxicodone Ir), 1-2 TAB PO Q4H PRN for Severe Pain Allergies Coded Allergies: Ibuprofen (Verified Allergy, Mild, ULCERS, 09/28/17) Physical Exam Vital Signs Date Time Temp Pulse Resp B/P (MAP) Pulse Ox O2 Delivery O2 Flow Rate FiO2 09/29/17 18:40 78 20 130/73 95 09/29/17 16:36 71 20 130/74 94 Room Air 09/29/17 15:38 36.6 71 20 155/78 95 Room Air Physical Exam GENERAL: alert, well appearing, well nourished, no distress, non-toxic EYE EXAM: normal conjunctiva, PERRL and EOM's grossly intact OROPHARYNX: no exudate, no erythema, lips, buccal mucosa, and tongue normal and mucous membranes are moist NECK: supple, no nuchal rigidity, no adenopathy, non-tender LUNGS: Clear to auscultation. Normal chest wall mechanics HEART: no murmurs, S1 normal and S2 normal ABDOMEN: abdomen soft, non-tender, normo-active bowel sounds, no masses, no rebound or guarding. BACK: Back is symmetrical on inspection and there is no deformity, no midline tenderness, no CVA tenderness. SKIN: no rashes and no bruising UPPER EXTREMITIES: upper extremities are grossly normal. LOWER EXTREMITIES: No pitting edema. NEURO EXAM: Normal sensorium, cranial nerves II-XII grossly intact, normal speech, no gross weakness of arms, no gross weakness of legs. Patient is mildly confused. Medical Decision & Procedures Medications Administered Medications (Trade) Dose Ordered Sig/Guille Route Start Time Stop Time Status Last Admin Dose Admin Diazepam (Valium Tab) 5 mg NOW STAT PO 09/29/17 15:55 09/29/17 15:56 DC 09/29/17 16:04 5 MG Diazepam (Valium Tab) 5 mg NOW ONCE PO 09/29/17 18:15 09/29/17 18:16 DC 09/29/17 18:36 5 MG ED Course 1546: The patient was evaluated in room A4B. A complete history and physical exam was performed. 1555: Valium 5 mg PO. 1650: I reevaluated the patient. He states there is still no change in his pain. 1725: I reevaluated the patient. He is asleep. 1756: I reevaluated the patient. He feels better. I offered him admission to the hospital, but he declines. comfortable taking him home. Discussed with her f/u with his usual neurologist. She is concerned he would be more agitated if admitted and wants him home for the holiday. I discussed his discharge instructions with the and he verbalized complete understanding and agreement. Given intermittent nature and negative imaging, discussed with her need for neurology evaluation. Symptoms here improved with muscle relaxer and description of pain starting in the neck and coming up over the head more suggestive of tension type headache. Doubt cva, SAH, dissection, cerebellar mass/infarct/bleed, temporal arteritis. Medical Decision Differential Diagnosis includes but is not limited to headache, tension headache , cluster headache, migraine, subarachnoid hemorrhage, meningitis, mass, central venous thrombus, concussion, trauma and epidural/subdural hemorrhage. Medication Reconcilliation Current Medication List: was personally reviewed by me Blood Pressure Screening Patient's blood pressure: Elevated blood pressure Blood pressure disposition: Elevated BP felt to be situational Impression Primary Impression: Headache Scribe Attestation The scribe's documentation has been prepared under my direction and personally reviewed by me in its entirety. I confirm that the note above accurately reflects all work, treatment, procedures, and medical decision making performed by me. Departure Information Dispostion Home / Self-Care Referrals Brad Mason III, CRNP (PCP) Patient Instructions My [facility] Additional Instructions Please call your neurologist first thing Sunday to discuss your recent headaches. Please advise them of the testing you have had during her emergency department visits. You may try the medication your provided with today if another headache recurs. However, if it does not seem to be helping, the headache feels different or worse, the patient develops vomiting, vision changes , fevers, or has any other new complaints, please return to the ER immediately. Please continue your other regular medications as prescribed. Please drink more water to stay well-hydrated. Please try to monitor for any potential triggers of these headaches. Problem Qualifiers Primary Impression: Headache Headache type: unspecified Headache chronicity pattern: episodic headache Intractability: not intractable Qualified Codes: R51 - Headache
[2017-09-29] MEDS ORDERED: DIAZEPAM 5MG TAB PO STA (15:55)
[2017-09-29] MEDS ORDERED: GUAISYP4 PO (16:20)
[2017-09-29] MEDS ORDERED: DIAZEPAM 5MG TAB PO ONE (18:15)
[2017-09-29] MEDS ORDERED: EMPTY 8 DRAM VIAL ONE (18:25)
[2017-09-29 18:40] VITALS: BP 130/73; PULSE 78; O2SAT 95
== END 2017-09-29 18:41 | disposition home or self-care (01) ==
LOC: C.EDB 15:25 → C.EDA 18:41
DX: R51 Headache (principal); J44.1 Chronic obstructive pulmonary disease with (acute) exacerbation; I10 Essential (primary) hypertension; K21.9 Gastro-esophageal reflux disease without esophagitis; E78.5 Hyperlipidemia, unspecified; I25.10 Atherosclerotic heart disease of native coronary artery without angina pectoris; Z83.3 Family history of diabetes mellitus; Z83.79 Family history of other diseases of the digestive system; Z82.49 Family history of ischemic heart disease and other diseases of the circulatory system; Z84.1 Family history of disorders of kidney and ureter; Z82.3 Family history of stroke

== ENCOUNTER 2018-01-03 11:42 | Inpatient (IN) | payer BC, OTHER ==
[~2018-01-03] VITALS: Ht 152.4 cm; Wt 97.7 kg
[~2018-01-03 11:42] MED LIST changes: -CEFD1CAP14 PO; -CLR10 PO; -FURO-85 PO; -IPRA1AER2 INH; -IPRASOL4 INH; -ISOS60TA25 PO; -METO50TA16 PO; -MONT1TAB3 PO; -SYMIN160 PO
[2018-01-03] MEDS ORDERED: APIX1TAB3 PO (12:14)
[2018-01-03] MEDS ORDERED: PRED20TA PO (12:14)
[2018-01-03] MEDS ORDERED: SPRIN/30 INH (12:14)
[2018-01-03] MEDS ORDERED: ALBUT/IPRATROP 3MG/0.5MG NEB 3 ML VIAL INH STA ×3 (12:38→13:27)
--- NOTE | 2018-01-03 12:53 | EMERGENCY ROOM VISIT NOTE ---
History Report prepared by Simi: Claudio Garcia Under the Supervision of: Dr. Prem Moran M.D. First contact with patient: 12:22 Chief Complaint: SHORTNESS OF BREATH Stated Complaint: CAN'T BREATHE Nursing Triage Summary: pt to the ED with c/o SOB and audible wheezing at times mild +1 LE edema pt has a cough that is productive pt states he does not wear O2 History of Present Illness The patient is a 77 year old male with a history of COPD who presents to the Emergency Room with complaints of persistent shortness of breath that started a few weeks ago. Per the patient's , the patient saw Dr. Goodrich 2 weeks ago, and was put on Prednisone and antibiotics. The patient was then seen by Dr. Allison 3 days ago, and was only prescribed Prednisone, so the patient has only been taking 40 mg Prednisone and his nebulizer treatment since then. The patient notes that the nebulizer treatment this morning did help with some of his breathing difficulties, however he continues to wheeze. The patient adds that he has had a productive cough. He denies any fevers. No chest pain. The patient states that he does not wear oxygen at home. He notes no recent surgeries, no hemoptysis, no mobilization, no exogenous hormone usage. No history of CHF. Source of History: patient, family Onset: A few weeks ago Position: other (global) Quality: other (shortness of breath) Timing: other (persistent) Modifying Factors (Relieving): other (nebulizer) Associated Symptoms: + cough, No fevers Review of Systems See HPI for pertinent positives and negatives. A total of ten systems were reviewed and were otherwise negative. Past Medical & Surgical Medical Problems: (1) Angina (2) Asthma (3) Asthma exacerbation (4) Benign hypertension (5) Bilateral hip replacement (6) Bronchitis (7) CAD (coronary artery disease) (8) Chest pain (9) COPD (chronic obstructive pulmonary disease) (10) COPD exacerbation (11) Diverticulitis (12) Diverticulosis (13) GERD (gastroesophageal reflux disease) (14) Headache (15) Heart disease (16) Hyperlipidemia (17) Hypertension (18) Neutropenic fever (19) Pneumonia (20) Pulmonary emboli (21) Splenomegaly (22) Stomach problems (23) Unstable angina Surgical Problems: (1) H/O prostatectomy (2) History of bilateral hip replacements Family History FH: diabetes mellitus FH: gallbladder disease FH: heart disease Hypertension Kidney disease Kidney stones Myocardial infarction Stroke Social History Smoking Status: Never Smoker Alcohol Use: none Drug Use: none Marital Status: Housing Status: lives with family Occupation Status: retired Current/Historical Medications Scheduled Apixaban (Eliquis), 5 MG PO BID Budesonide/Formoterol Fumarate (Symbicort 160/4.5 Inhaler), 1 PUFF PO BID Furosemide (Lasix), 40 MG PO DAILY Guaifenesin Ext Rel (Mucinex Ext Rel), 1,200 MG PO Q12H Ipratropium-Albuterol (Combivent Respimat), 1 PUFFS INH BID Isosorbide Mononitrate Ext Rel (Imdur Ext Rel), 60 MG PO QAM Metoprolol Tartrate (Lopressor) (Lopressor), 25 MG PO BID Montelukast Sodium (Singulair), 10 MG PO DAILY Prednisone (Prednisone), 40 MG PO DAILY Ranitidine Hcl (Zantac), 300 MG PO BID Tiotropium [place] (Spiriva Handihaler), 1 CAP INH DAILY Scheduled PRN Benzonatate (Benzonatate), 100 MG PO 4XDQ4H PRN for Cough Ipratropium-Albuterol (Duoneb), 1 TREATMENT INH QID PRN for SOB/Wheezing Nitroglycerin (Nitrostat), 0.4 MG UT UD PRN for Chest Pain Allergies Coded Allergies: Ibuprofen (Verified Allergy, Mild, ULCERS, 01/03/18) Physical Exam Vital Signs Date Time Temp Pulse Resp B/P (MAP) Pulse Ox O2 Delivery O2 Flow Rate FiO2 01/03/18 15:12 79 20 138/80 96 Nasal Cannula 2.0 01/03/18 13:55 80 24 124/78 93 Room Air 01/03/18 12:13 71 01/03/18 11:58 36.7 79 22 156/106 96 Room Air Physical Exam Physical Exam GENERAL: He is oriented to person, place, and time. He appears well-developed and well-nourished. He does not appear distressed. ____ HENT: Exam performed. Head: Normocephalic and atraumatic. Right Ear: External ear normal. No mastoid tenderness. Left Ear: External ear normal. No mastoid tenderness. Mouth/Throat: The oropharynx is clear and moist. No trismus in the jaw. No dental abscesses or uvula swelling. No oropharyngeal exudate or tonsillar abscesses. ____ EYES: Conjunctivae and EOM are normal. Pupils are equal, round, and reactive to light. Right eye exhibits no discharge. Left eye exhibits no discharge. No scleral icterus. ____ NECK: Normal range of motion. Neck supple. No JVD present. No spinous process tenderness present. No carotid bruit present. No rigidity. No tracheal deviation and normal range of motion present. No Brudzinski's sign and no Kernig 's sign noted. ____ CV: Normal rate, regular rhythm, normal heart sounds and intact distal pulses. There is no peripheral edema. Palpable radial pulses bue. ____ PULM/CHEST: Diffuse expiratory wheezes. No stridor. He has no rales. Chest Wall: He exhibits no tenderness. ____ ABD: The abdomen is obese. Bowel sounds are normal. He has no distension. No mass is present. There is no tenderness. There is no rebound, no guarding, no Lambert's sign and no tenderness at McBurney's point. Rovsig negative MUSC/SKEL: Normal range of motion. 1+ pitting edema bilateral lower legs. There is no peripheral tenderness or deformity. LYMPH: No cervical adenopathy. ____ NEURO: He is alert and oriented to person, place, and time. He has normal strength. No cranial nerve deficit or sensory deficit. Coordination and gait normal. GCS eye subscore is 4. GCS verbal subscore is 5. GCS motor subscore is 6. Cerebellar tests wnl. ____ SKIN: Skin is warm and dry. He is not diaphoretic. ____ PSYCH: He has a normal mood and affect. He behavior is normal. Judgment and thought content normal. ____ Medical Decision & Procedures ER Provider Diagnostic Interpretation: X-ray: Per my interpretation, radiologist review. SINGLE VIEW CHEST CLINICAL HISTORY: Dyspnea. Wheezing. FINDINGS: An AP, portable, upright chest radiograph is compared to study dated 09/26/2017. The examination is degraded by portable technique and apical lordotic positioning. The heart is top normal for projection. There is atherosclerotic calcification of the thoracic aorta. Atelectasis is noted at the left lung base. The lungs and pleural spaces are otherwise clear. No pneumothorax is seen. The skeletal structures are osteopenic. Advanced degenerative change is seen in the visualized spine and shoulders. IMPRESSION: No acute cardiopulmonary abnormality. Electronically signed by: Ananda Sweeney M.D. 01/03/2018 1:33 PM Dictated Date/Time: 01/03/2018 1:29 PM Laboratory Results 01/03/18 13:05 Red Blood Count 4.38, Mean Corpuscular Volume 88.1, Mean Corpuscular Hemoglobin 30.1, Mean Corpuscular Hemoglobin Concent 34.2, Mean Platelet Volume 9.1, Neutrophils (%) (Auto) 61.8, Lymphocytes (%) (Auto) 24.0, Monocytes (%) (Auto) 12.6, Eosinophils (%) (Auto) 0.6, Basophils (%) (Auto) 0.2, Neutrophils # (Auto ) 3.10, Lymphocytes # (Auto) 1.20, Monocytes # (Auto) 0.63, Eosinophils # (Auto ) 0.03, Basophils # (Auto) 0.01 01/03/18 13:05 Test 01/03/18 13:05 White Blood Count 5.01 K/uL (4.8-10.8) Red Blood Count 4.38 M/uL (4.7-6.1) Hemoglobin 13.2 g/dL (14.0-18.0) Hematocrit 38.6 % (42-52) Mean Corpuscular Volume 88.1 fL (80-100) Mean Corpuscular Hemoglobin 30.1 pg (25-34) Mean Corpuscular Hemoglobin Concent 34.2 g/dl (32-36) Platelet Count 156 K/uL (130-400) Mean Platelet Volume 9.1 fL (7.4-10.4) Neutrophils (%) (Auto) 61.8 % Lymphocytes (%) (Auto) 24.0 % Monocytes (%) (Auto) 12.6 % Eosinophils (%) (Auto) 0.6 % Basophils (%) (Auto) 0.2 % Neutrophils # (Auto) 3.10 K/uL (1.4-6.5) Lymphocytes # (Auto) 1.20 K/uL (1.2-3.4) Monocytes # (Auto) 0.63 K/uL (0.11-0.59) Eosinophils # (Auto) 0.03 K/uL (0-0.5) Basophils # (Auto) 0.01 K/uL (0-0.2) RDW Standard Deviation 45.9 fL (36.4-46.3) RDW Coefficient of Variation 14.2 % (11.5-14.5) Immature Granulocyte % (Auto) 0.8 % Immature Granulocyte # (Auto) 0.04 K/uL (0.00-0.02) Anion Gap 6.0 mmol/L (3-11) Est Creatinine Clear Calc Drug Dose 58.3 ml/min Estimated GFR () 81.2 Estimated GFR (Non- 70.1 BUN/Creatinine Ratio 15.6 (10-20) Lactic Acid Level 2.6 mmol/L (0.4-2.0) Calcium Level 8.9 mg/dl (8.5-10.1) Troponin I < 0.015 ng/ml (0-0.045) Pro-B-Type Natriuretic Peptide 204 pg/ml (0-1800) Influenza Type A Antigen Neg for Influ A (NEG) Influenza Type B Antigen Neg for Influ B (NEG) Laboratory results reviewed by me Medications Administered Medications (Trade) Dose Ordered Sig/Guille Route Start Time Stop Time Status Last Admin Dose Admin Albuterol/ Ipratropium (Duoneb) 3 ml NOW STAT INH 01/03/18 12:38 01/03/18 12:41 DC 01/03/18 12:59 3 ML Albuterol/ Ipratropium (Duoneb) 3 ml NOW STAT INH 01/03/18 13:08 01/03/18 13:09 DC 01/03/18 13:13 3 ML Albuterol/ Ipratropium (Duoneb) 3 ml NOW STAT INH 01/03/18 13:27 01/03/18 13:28 DC 01/03/18 13:38 3 ML ECG Per My Interpretation Indication: SOB/dyspnea Rate (beats per minute): 68 Rhythm: other (sinus arrhythmia) Findings: other (WV, QRS and QTC intervals within normal limits, no ST elevation or ST depression) ED Course 1235: The patient was evaluated in room A12B. A complete history and physical exam was performed. 1238: DuoNeb 3 ml INH. 1308: DuoNeb 3 ml INH. 1327: DuoNeb 3 ml INH. 1352: Vital signs stable. Labs within normal limits with the exception of lactic acid of 2.6. Chest x-ray shows no acute infiltrate or pulmonary edema. I reevaluated the patient and after 3 Nebulizer treatments, he states that he feels better, but still has diffuse audible expiratory wheezes. He will be hospitalized for COPD exacerbation, and he is agreeable with this plan. I discussed the patient with Dr. Cayetano PICKARD hospitalist - she will evaluate the patient for further treatment. Patient took steroids earlier today, will hold steroids at this point. Medical Decision Labs within normal limits with the exception of lactic acid of 2.6. Chest x- ray shows no acute infiltrate or pulmonary edema. I reevaluated the patient and after 3 Nebulizer treatments, he states that he feels better, but still has diffuse audible expiratory wheezes. He will be hospitalized for COPD exacerbation, and he is agreeable with this plan. I discussed the patient with Dr. Cayetano jallohist - she will evaluate the patient for further treatment. Patient took steroids earlier today, will hold steroids at this point. Medication Reconcilliation Current Medication List: was personally reviewed by me Blood Pressure Screening Patient's blood pressure: Elevated blood pressure Referred to hospitalist. Consults Time Called: 1400 Consulting Physician: Dr. Cayetano PICKARD hospitalpola Returned Call: [phone] I discussed the patient with Dr. Cayetano culp - she will evaluate the patient for further treatment. Impression Primary Impression: COPD exacerbation Scribe Attestation The scribe's documentation has been prepared under my direction and personally reviewed by me in its entirety. I confirm that the note above accurately reflects all work, treatment, procedures, and medical decision making performed by me. The chart was completed utilizing [employer] Speech voice recognition software. Grammatical errors, random word insertions, pronoun errors, and incomplete sentences are an occasional consequence of this system due to software limitations, ambient noise, and hardware issues. Any formal questions or concerns about the content, text, or information contained within the body of this dictation should be directly addressed to the physician for clarification. Departure Information Dispostion Being Evaluated By Hospitalist Referrals No Doctor, Assigned (PCP) Patient Instructions My [facility]
[2018-01-03] MEDS ORDERED: ISOS60TA25 PO (13:17)
[2018-01-03 13:23] LABS: BASO % 0.2 %; BASO ABS # 0.01 K/uL (0-0.2); EOS % 0.6 %; EOS ABS # 0.03 K/uL (0-0.5); HEMATOCRIT 38.6 % (42-52); HEMOGLOBIN 13.2 g/dL (14.0-18.0); IG# 0.04 K/uL (0.00-0.02); MEAN CELL VOLUME 88.1 fL (80-100); MEAN CORPUSCULAR HEMOGLOBIN 30.1 pg (25-34); MEAN CORPUSCULAR HGB CONC 34.2 g/dl (32-36); MEAN PLATELET VOLUME 9.1 fL (7.4-10.4); MONO % 12.6 %; MONO ABS # 0.63 K/uL (0.11-0.59); NEUT % 61.8 %; PLATELET COUNT 156 K/uL (130-400); RED CELL DISTRIBUTION WIDTH CV 14.2 % (11.5-14.5); RED CELL DISTRIBUTION WIDTH SD 45.9 fL (36.4-46.3); WHITE BLOOD COUNT 5.01 K/uL (4.8-10.8)
[2018-01-03 13:34] LABS: BLOOD UREA NITROGEN 16 mg/dl (7-18); CALCIUM 8.9 mg/dl (8.5-10.1); CARBON DIOXIDE 30 mmol/L (21-32); CREATININE 1.02 mg/dl (0.60-1.40); GLUCOSE 172 mg/dl (70-99); SODIUM 137 mmol/L (136-145)
--- NOTE | 2018-01-03 13:35 | DIAGNOSTIC IMAGING REPORT ---
SINGLE VIEW CHEST CLINICAL HISTORY: Dyspnea. Wheezing. FINDINGS: An AP, portable, upright chest radiograph is compared to study dated 09/26/2017. The examination is degraded by portable technique and apical lordotic positioning. The heart is top normal for projection. There is atherosclerotic calcification of the thoracic aorta. Atelectasis is noted at the left lung base. The lungs and pleural spaces are otherwise clear. No pneumothorax is seen. The skeletal structures are osteopenic. Advanced degenerative change is seen in the visualized spine and shoulders. IMPRESSION: No acute cardiopulmonary abnormality. Electronically signed by: Ananda Sweeney M.D. 01/03/2018 1:33 PM Dictated Date/Time: 01/03/2018 1:29 PM
[2018-01-03 13:48] LABS: INFLUENZA B ANTIGEN Neg for Influ B (NEG)
[2018-01-03] MEDS ORDERED: METHYLPREDNISOLONE 125 MG VIAL IV STA (15:37)
[2018-01-03] MEDS ORDERED: POLYETHYLENE (MIRALAX) 17 GM PACK PO PRN (15:45)
[2018-01-03] MEDS ORDERED: ACETAMINOPHEN 325 MG TAB PO PRN (15:45)
[2018-01-03] MEDS ORDERED: MAGNESIUM HYDROXIDE SUSP 30 ML UDC PO PRN (15:45)
[2018-01-03] MEDS ORDERED: ONDANSETRON INJ 2 MG/ML 2 ML VIAL IV PRN (15:45)
[2018-01-03] MEDS ORDERED: ALUMINUM/MAGNESIUM/SIMETH (MAALOX MAX) 30 ML UDC PO PRN (15:45)
[2018-01-03] MEDS: ALBUT/IPRATROP 3MG/0.5MG NEB 3 ML VIAL INH SCH ×2 (16:00→19:15)
[2018-01-03 16:13] VITALS: O2SAT 96; BMI 42.1
--- NOTE | 2018-01-03 16:13 | History and Physical ---
History & Physical Date & Time of Service: Jan 03, 2018 at 15:54 Chief Complaint: Can't Breathe Primary Care Physician: Brad Mason III, CRNP History of Present Illness Source: patient, spouse (at bedside), clinic records, hospital records This is a 77 y/o male with a history of asthma, HTN, HLD, diastolic CHF, h/o PE on Eliquis, JUWAN, h/o prostate cancer s/p prostatectomy, dementia, BISI, and GERD who presented to the ED on 01/03 with worsening shortness of breath, wheezing, and productive cough. The patient states his symptoms began about 2 weeks ago. The patient saw his machine operator transplanter, Dr. Goodrich, who diagnosed him with an asthma exacerbation and gave him a Z-pack and prednisone taper. This did help initially, but after these meds were completed, his breathing became worse again. The patient then saw his PCP earlier this week, who prescribed another prednisone taper. The patient complains of shortness of breath, wheezing, and a productive cough. He typically only wears oxygen during the day as needed, but lately has had to wear continuously. The patient states he cannot even take a deep enough breath to use his inhalers and has been using his neb machine at home. The patient denies fevers, chills, sweats, chest pain, palpitations, claudication, nausea, vomiting, abdominal pain, dysuria, hematuria , urinary retention, paralysis, weakness, numbness and tingling. Past Medical/Surgical History Medical Problems: (1) Abdominal pain (2) Anemia (3) Angina (4) Asthma (5) Asthma exacerbation (6) Asthma exacerbation (7) Benign hypertension (8) Bilateral hip replacement (9) Bronchitis (10) Bronchitis (11) CAD (coronary artery disease) (12) Cellulitis of hand, right (13) Chest pain (14) COPD (chronic obstructive pulmonary disease) (15) COPD exacerbation (16) Cough (17) Diverticulitis (18) Diverticulosis (19) Fall (20) Generalized abdominal pain (21) GERD (gastroesophageal reflux disease) (22) Headache (23) Heart disease (24) Hyperkalemia (25) Hyperlipidemia (26) Hypertension (27) Intractable headache (28) Neutropenic fever (29) Non-cardiac chest pain (30) Pneumonia (31) Pulmonary emboli (32) Sepsis (33) Sigmoid diverticulitis (34) Sinusitis (35) Sinusitis (36) Splenomegaly (37) Stomach problems (38) Thrombocytopenia (39) Thrombocytopenia (40) Unstable angina Surgical Problems: (1) H/O prostatectomy (2) History of bilateral hip replacements Family History FH: diabetes mellitus FH: gallbladder disease FH: heart disease Hypertension Kidney disease Kidney stones Myocardial infarction Stroke Social History Smoking Status: Never Smoker Smokeless Tobacco Use: No Alcohol Use: none Drug Use: none Marital Status: Housing status: lives with significant other Occupational Status: retired Immunizations History of Influenza Vaccine: Yes Influenza Vaccine Date: Jul 05, 2013 History of Tetanus Vaccine?: Unknown History of Pneumococcal: Yes Pneumococcal Date: Oct 04, 2011 History of Hepatitis B Vaccine: Unknown Allergies Coded Allergies: Ibuprofen (Verified Allergy, Mild, ULCERS, 01/03/18) Home Medications Scheduled Apixaban (Eliquis), 5 MG PO BID Budesonide/Formoterol Fumarate (Symbicort 160/4.5 Inhaler), 1 PUFF PO BID Furosemide (Lasix), 40 MG PO DAILY Guaifenesin Ext Rel (Mucinex Ext Rel), 1,200 MG PO Q12H Ipratropium-Albuterol (Combivent Respimat), 1 PUFFS INH BID Isosorbide Mononitrate Ext Rel (Imdur Ext Rel), 60 MG PO QAM Metoprolol Tartrate (Lopressor) (Lopressor), 25 MG PO BID Montelukast Sodium (Singulair), 10 MG PO DAILY Prednisone (Prednisone), 40 MG PO DAILY Ranitidine Hcl (Zantac), 300 MG PO BID Tiotropium [place] (Spiriva Handihaler), 1 CAP INH DAILY Scheduled PRN Benzonatate (Benzonatate), 100 MG PO 4XDQ4H PRN for Cough Ipratropium-Albuterol (Duoneb), 1 TREATMENT INH QID PRN for SOB/Wheezing Nitroglycerin (Nitrostat), 0.4 MG UT UD PRN for Chest Pain Review of Systems Constitutional: No fever, No chills, No sweats Eyes: No worsening of vision, No eye pain, No diplopia ENT: No hearing loss, No nasal symptoms, No trouble swallowing Respiratory: +Cough, wheezing, SOB. Cardiovascular: No chest pain, No claudication, No palpitations Abdomen: No pain, No nausea, No vomiting Musculoskeletal: No joint pain, No muscle pain, No swelling Genitourinary - Male: No dysuria, No urinary retention, No hematuria Neurologic: No paralysis, No weakness, No numbness/tingling Integumentary: No rash, No itch, No color change Physical Exam Vital Signs Date Time Temp Pulse Resp B/P (MAP) Pulse Ox O2 Delivery O2 Flow Rate FiO2 01/03/18 15:12 79 20 138/80 96 Nasal Cannula 2.0 01/03/18 13:55 80 24 124/78 93 Room Air 01/03/18 12:13 71 01/03/18 11:58 36.7 79 22 156/106 96 Room Air General appearance: +Morbidly obese. Well-developed, well-nourished, no apparent distress Head: Normocephalic, atraumatic Eyes: Normal inspection, PERRL, EOMI ENT: Normal ENT inspection, hearing grossly normal, pharynx normal Neck: Supple, no JVD, trachea midline Respiratory/Chest: +Currently on 2L NC. Diffuse wheezing throughout. Normal breath sounds, no respiratory distress Cardiovascular: Regular rate & rhythm, no gallop, no murmur Abdomen/GI: Normal bowel sounds, non-tender, soft Extremities/Musculoskeletal: Normal inspection, no calf tenderness, no pedal edema Neurological/Psych: +Disoriented to time. Alert, normal mood/affect, oriented x 2 Skin: Normal color, warm/dry, no rash Diagnostics Laboratory Results Results Past 24 Hours Test 01/03/18 13:05 Range/Units White Blood Count 5.01 4.8-10.8 K/uL Red Blood Count 4.38 4.7-6.1 M/uL Hemoglobin 13.2 14.0-18.0 g/dL Hematocrit 38.6 42-52 % Mean Corpuscular Volume 88.1 80-100 fL Mean Corpuscular Hemoglobin 30.1 25-34 pg Mean Corpuscular Hemoglobin Concent 34.2 32-36 g/dl Platelet Count 156 130-400 K/uL Mean Platelet Volume 9.1 7.4-10.4 fL Neutrophils (%) (Auto) 61.8 % Lymphocytes (%) (Auto) 24.0 % Monocytes (%) (Auto) 12.6 % Eosinophils (%) (Auto) 0.6 % Basophils (%) (Auto) 0.2 % Neutrophils # (Auto) 3.10 1.4-6.5 K/uL Lymphocytes # (Auto) 1.20 1.2-3.4 K/uL Monocytes # (Auto) 0.63 0.11-0.59 K/uL Eosinophils # (Auto) 0.03 0-0.5 K/uL Basophils # (Auto) 0.01 0-0.2 K/uL RDW Standard Deviation 45.9 36.4-46.3 fL RDW Coefficient of Variation 14.2 11.5-14.5 % Immature Granulocyte % (Auto) 0.8 % Immature Granulocyte # (Auto) 0.04 0.00-0.02 K/uL Sodium Level 137 136-145 mmol/L Potassium Level 4.0 3.5-5.1 mmol/L Chloride Level 101 98-107 mmol/L Carbon Dioxide Level 30 21-32 mmol/L Anion Gap 6.0 3-11 mmol/L Blood Urea Nitrogen 16 7-18 mg/dl Creatinine 1.02 0.60-1.40 mg/dl Est Creatinine Clear Calc Drug Dose 58.3 ml/min Estimated GFR () 81.2 Estimated GFR (Non- 70.1 BUN/Creatinine Ratio 15.6 10-20 Random Glucose 172 70-99 mg/dl Lactic Acid Level 2.6 0.4-2.0 mmol/L Calcium Level 8.9 8.5-10.1 mg/dl Troponin I < 0.015 0-0.045 ng/ml Pro-B-Type Natriuretic Peptide 204 0-1800 pg/ml Influenza Type A Antigen Neg for Influ A NEG Influenza Type B Antigen Neg for Influ B NEG Diagnostic Radiology Reviewed the following studies and agree with interpretation as follows: SINGLE VIEW CHEST CLINICAL HISTORY: Dyspnea. Wheezing. FINDINGS: An AP, portable, upright chest radiograph is compared to study dated 09/26/2017. The examination is degraded by portable technique and apical lordotic positioning. The heart is top normal for projection. There is atherosclerotic calcification of the thoracic aorta. Atelectasis is noted at the left lung base. The lungs and pleural spaces are otherwise clear. No pneumothorax is seen. The skeletal structures are osteopenic. Advanced degenerative change is seen in the visualized spine and shoulders. IMPRESSION: No acute cardiopulmonary abnormality. EKG Reviewed EKG and agree with interpretation as follows: 68 bpm, normal sinus rhythm, sinus arrhythmia Impression Assessment and Plan 77 y/o male with a history of asthma, HTN, HLD, diastolic CHF, h/o PE on Eliquis , JUWAN, h/o prostate cancer s/p prostatectomy, dementia, BISI, and GERD who presented to the ED on 01/03 with worsening shortness of breath, wheezing, and productive cough. The patient presents to the ED afebrile, VSS. Patient was oxygenating at 96% on room air on arrival but did start to desaturate and then placed on 2L NC, which he has been using at home lately. CXR no acute disease, EKG no ischemic changes. Lactic acid elevated at 2.6, labs otherwise grossly unremarkable. Asthma exacerbation -Hemodynamically stable, admit to med/surg -O2 by protocol, currently on 2L NC -Solu-Medrol 125 mg IV x 1, then 60 mg IV q6h -DuoNebs QIDR and q2h prn SOB/wheezing -Continue Symbicort BID, Spiriva, Singulair. Hold home Combivent due to scheduled DuoNebs -Continue Mucinex 1200 mg PO BID -Start Tessalon Perles 200 mg PO TID -Pulmonary toilet with flutter valve and incentive spirometry -Consult pulmonology due to persistent exacerbation, pt follows with Dr. Goodrich HTN, HLD, chronic diastolic CHF--stable -Continue Lopressor 25 mg PO BID, Imdur 60 mg PO qd, Lasix 40 mg PO qd H/o PE--stable, diagnosed May 2017 -Continue Eliquis 5 mg PO BID JUWAN--stable -Hgb stable, at baseline H/o prostate cancer s/p prostatectomy--noted BISI -Continue BiPAP GERD -Continue Zantac BID DVT prophylaxis -Eliquis -GISELLE Wards Code Status -Level I, FULL RESUSCITATION STATUS ATTENDING PHYSICIAN ATTESTATION Pt. Kourtney Daniel is a 77/M admitted for status asthmaticus. Prior to coming to the Emergency Department, he saw his OP Industrial Hygiene Manager Dr. Goodrich and PCP x2. He was given empiric Abx and steroids with only minimal alleviation of Sx. He uses nocturnal oxygen at home but now is requiring supplemental oxygen around the clock. VS are stable. On arrival her was reaching appropriate oxygen saturation on room air but then began to have intermittent desaturation. Otherwise labs are unremarkable with exception of mild lactic acidosis of 2.6. Pulmonary consult has been placed and will appreciate further recommendations from Dr. Goodrich. DuoNebs will be administered around the clock for the next 24 hours and he was started on intravenous steroids. Resume home inhalers Resuscitation Status VTE Prophylaxis Will order VTE Prophylaxis: Yes
[2018-01-03] MEDS ORDERED: MONT1TAB3 PO (16:19)
[2018-01-03] MEDS ORDERED: FURO-85 PO (16:19)
[2018-01-03 16:46] VITALS: BP 128/68; PULSE 74; TEMP 36.7; O2SAT 96
[2018-01-03] MEDS ORDERED: ALBUT/IPRATROP 3MG/0.5MG NEB 3 ML VIAL INH PRN (17:15)
[2018-01-03 19:15] VITALS: PULSE 83; O2SAT 96
--- NOTE | 2018-01-03 19:41 | PULMONARY CONSULTATION ---
DATE OF CONSULTATION: 01/03/2018 TIME: 7:05 p.m. REPORT OF CONSULTATION: The patient was seen in room 416. He is a 77-year-old male who is known to me. He has a history of asthma for many years. This has been probably for more than 10 but less than 15 years. He has had moderate persistent asthma. The patient does have chronic shortness of breath. I had seen him in the office on 12/19/2017. At that time, he was more short of breath than normal. He was felt to have an exacerbation. He had been maintained on 5 mg prednisone per day for the last few months. I gave him 30 mg for three days, then 20 mg for 3 days, then 10 mg for 4 days. He was also started on azithromycin. He improved a little but not dramatically. Recently, he saw his family doctor who gave him prednisone. He still has not improved. This prompted his coming to the Emergency Room. The patient himself is a poor historian. He does have some dementia. His is usually with him but she was not there at the time of this exam. He has had numerous exacerbations relatively recently. In September, he had an exacerbation. On 11/02/2017, he had an exacerbation, treated with levofloxacin and prednisone. Thus, he has not been all that stable the past several months. Curiously, the patient had pulmonary function test done 02/27/2017 that were actually within the limits of normal. The patient states he has been coughing up some mucus which is white or lopez. The quantity of mucus is small. He denies chest pains, chills, fevers or sweats. 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 He does not do any of that work any longer. At home he has a fireplace and a wood burner. He had not done well in the past with inhalers. Thus, he was changed to nebulizer. The patient does use the nebulizer periodically but he actually likes Combivent Respimat better. He is listed as taking Tiotropium according to the list of medicines but I do not believe he actually is on that medicine. Likewise, he is listed as being on Symbicort. He did not like Symbicort and we had started him on budesonide by nebulizer but he did not like that either. The patient does have a history of reflux. PAST MEDICAL HISTORY: 1. Diverticular disease. 2. Actinic keratosis. 3. Thrombocytopenia. 4. Dementia. 5. Asthma as noted. PAST SURGICAL HISTORY: 1. Hernia repair. 2. Prostatectomy - the patient could not tell me if it was for cancer or BPH, but the notes suggest he had cancer. 3. Right and left total hip replacement. 4. Cataract surgeries. SOCIAL HISTORY: Nonsmoker and nondrinker. FAMILY HISTORY: Noncontributory in light of the patient's age. ALLERGIES: IBUPROFEN. REVIEW OF SYSTEMS: Negative except for the above-mentioned complaints. There were limitations as the patient is a poor historian. PHYSICAL EXAMINATION: GENERAL: The patient is a 77-year-old male who was cooperative and alert. He did know he was in the hospital. He could not tell me what month or year it was. VITAL SIGNS: Temperature was 36.7. HEENT: Eye exam showed implants. Nares were clear. Mouth exam showed a Mallampati grade 3 pharynx. He has a very short, large neck. No lymph nodes were palpable. He has a suarez. HEART: Heart rate was 74 per minute. The rhythm was slightly irregular. Blood pressure was 128/68. LUNGS: Lung valentin revealed diffuse wheezing bilaterally on inspiration and expiration. Respiratory rate was 20. Saturations were 96% on 2 liters. ABDOMEN: Obese. Bowel sounds were normal. There was no tenderness to palpation or masses. EXTREMITIES: Revealed +2 edema of both lower extremities. DATA: The patient had a chest x-ray done that showed no acute abnormality. There was minimal atelectatic change at the left base. Electrolytes show sodium 137, potassium 4, chloride 101, bicarbonate 30. BUN 16 with creatinine 1.02. Lactic acid level was mildly elevated at 2.6. ProBNP was normal at 204. Troponin was negative. Flu test was negative. White count is 5.01, hemoglobin 13.2, platelets 156,000. EKG showed sinus rhythm with PACs. No significant abnormalities were seen. IMPRESSION: 1. Asthma with exacerbation. 2. Obstructive sleep apnea. 3. Obesity. COMMENTS: The patient remains quite tight. He has not responded to outpatient therapy. RECOMMENDATIONS: He is on methylprednisolone 60 mg IV q. 6 hours. We need to follow his sugars very carefully. We also need to decrease that as soon as feasible. The patient is getting the albuterol/ipratropium q.i.d. He will need all of that and perhaps even p.r.n. as well. We will need to watch his urinary flow if he is taking the Tiotropium at present in light of his prostate disease. He is on Lasix daily. Should follow the I&O. He does have some peripheral edema. The patient is chronically on apixaban. Would consider doing an echocardiogram. Although his BNP is not elevated, it may help us in terms of seeing if he has pulmonary hypertension or any other unexpected cardiac issue. Thank you for asking me to assist in his care.
[2018-01-03] MEDS ORDERED: IPRASOL4 INH (19:51)
[2018-01-03 20:36] VITALS: BP 138/74; PULSE 72
[2018-01-03] MEDS: BUDESONIDE/FORMOTEROL FUMARATE 160/4.5 60 PUFFS/INHALER INH SCH (20:37)
[2018-01-03] MEDS: APIXABAN 2.5 MG TAB PO SCH (20:37)
[2018-01-03] MEDS: BENZONATATE 100MG CAP PO SCH (20:38)
[2018-01-03] MEDS: METOPROLOL TARTRATE 25 MG TAB PO SCH (20:38)
[2018-01-03] MEDS ORDERED: IPRA1AER2 INH (20:39)
[2018-01-03] MEDS ORDERED: SYMIN160 PO (20:39)
[2018-01-03] MEDS: RANITIDINE HCL 150 MG TAB PO SCH (20:39)
[2018-01-03] MEDS: GUAIFENESIN 600 MG TABCR PO SCH (20:40)
[2018-01-03] MEDS: METHYLPREDNISOLONE IV 60 MG in SYRINGE 0 ML IV SCH (21:52)
[2018-01-03] MEDS ORDERED: METO50TA16 PO (22:48)
[2018-01-03 23:14] VITALS: PULSE 82
[2018-01-03 23:47] VITALS: BP 146/74; PULSE 69; TEMP 36.7; O2SAT 91
[2018-01-04] VITALS (9 sets, daily range): BP systolic 112–143; BP diastolic 59–77; PULSE 63–87; TEMP 36.5–37; O2SAT 87–97; Ht 152.4 cm; Wt 97.7 kg
[2018-01-04] MEDS: METHYLPREDNISOLONE IV 60 MG in SYRINGE 0 ML IV SCH ×4 (03:49→21:43)
[2018-01-04] MEDS: ALBUT/IPRATROP 3MG/0.5MG NEB 3 ML VIAL INH SCH ×4 (07:23→19:54)
[2018-01-04 07:28] LABS: HEMATOCRIT 38.7 % (42-52); HEMOGLOBIN 13.5 g/dL (14.0-18.0); MEAN CORPUSCULAR HEMOGLOBIN 30.3 pg (25-34); MEAN CORPUSCULAR HGB CONC 34.9 g/dl (32-36); MEAN PLATELET VOLUME 9.6 fL (7.4-10.4); PLATELET COUNT 165 K/uL (130-400); RED CELL DISTRIBUTION WIDTH SD 44.2 fL (36.4-46.3); WHITE BLOOD COUNT 4.52 K/uL (4.8-10.8)
[2018-01-04 08:00] LABS: CALCIUM 9.2 mg/dl (8.5-10.1); CREATININE 1.12 mg/dl (0.60-1.40); POTASSIUM 4.3 mmol/L (3.5-5.1)
[2018-01-04] MEDS: GUAIFENESIN 600 MG TABCR PO SCH ×2 (08:05→20:26)
[2018-01-04] MEDS: APIXABAN 2.5 MG TAB PO SCH ×2 (08:05→20:24)
[2018-01-04] MEDS: ISOSORBIDE MONONITRATE 60 MG TABCR PO SCH (08:05)
[2018-01-04] MEDS: METOPROLOL TARTRATE 25 MG TAB PO SCH ×2 (08:05→20:25)
[2018-01-04] MEDS: TIOTROPIUM BROMIDE 5 PUFF/90 MCG INH INH SCH (08:06)
[2018-01-04] MEDS: FUROSEMIDE 40 MG TAB PO SCH (08:06)
[2018-01-04] MEDS: BENZONATATE 100MG CAP PO SCH ×3 (08:06→20:25)
[2018-01-04] MEDS: MONTELUKAST SOD 10 MG TAB PO SCH (08:07)
[2018-01-04] MEDS: BUDESONIDE/FORMOTEROL FUMARATE 160/4.5 60 PUFFS/INHALER INH SCH ×2 (08:07→20:23)
[2018-01-04] MEDS: RANITIDINE HCL 150 MG TAB PO SCH ×2 (08:07→20:26)
[2018-01-04] MEDS ORDERED: GLUCOSE 10 TABS/TUBE PO PRN (13:00)
[2018-01-04] MEDS ORDERED: GLUCAGON FOR INJ 1 MG VIAL SQ PRN (13:00)
[2018-01-04] MEDS ORDERED: GLUCOSE 40% GEL 15 GM TUBE PO PRN (13:00)
[2018-01-04] MEDS: INSULIN ASPART 100 UNITS/ML 3 ML PEN SC SCH ×2 (13:32→17:41)
[2018-01-04] MEDS ORDERED: INSULIN GLARGINE SOLOSTAR 100 UNITS/ML 3 ML PEN SC STA (17:17)
[2018-01-04] MEDS ORDERED: INSULIN IV INFUSION PROTOCOL STA (21:18)
[2018-01-04] MEDS ORDERED: PHARMACY GLYCEMIC MGMT CONSULT PRN (21:22)
[2018-01-04] MEDS ORDERED: MODERATE STRESS LEVEL ONE (21:30)
[2018-01-04] MEDS ORDERED: DC ALL PREVIOUSLY ORDERED DIABETES MEDS ONE (21:30)
[2018-01-04] MEDS ORDERED: INSULIN PROTOCOL GOAL RANGE ONE (21:30)
[2018-01-04] MEDS ORDERED: INSULIN HUMAN REGULAR IV BOLUS 2.5 UNIT in SYRINGE 0 ML IV SCH (21:30)
[2018-01-04] MEDS: INSULIN REGULAR 250 UNITS in SODIUM CHLORIDE 0.9% 250ML 250 ML IV SCH ×3 (21:45→23:57)
--- NOTE | 2018-01-04 23:52 | Hospitalist Progress Note ---
Hospitalist Progress Note Date of Service Jan 04, 2018. Subjective Pt evaluation today including: conversation w/ patient, conversation w/ family , conversation w/ project management consultant (Pulmonology) Patient frequently asking nursing staff and myself he says he is not really short of breath, however he appears tachypneic after a coughing episode while in examining him. His reports that he has a bad problem with his memory. He is coughing but feels it is less than before. He feels improved since admission. All Other Systems: Reviewed and Negative Objective Vital Signs Date Time Temp Pulse Resp B/P (MAP) Pulse Ox O2 Delivery O2 Flow Rate FiO2 01/04/18 19:55 85 18 93 Room Air 01/04/18 16:00 93 Nasal Cannula 2.0 01/04/18 15:50 63 16 87 Room Air 01/04/18 14:42 37.0 65 20 112/59 (76) 93 01/04/18 11:18 64 18 97 Room Air 01/04/18 08:30 96 Room Air 01/04/18 07:42 36.5 64 18 143/77 (99) 96 Room Air 01/04/18 07:23 87 18 96 Room Air 01/04/18 00:00 CPAP 01/03/18 23:47 36.7 69 20 146/74 (98) 91 BiPAP Physical Exam General Appearance: no apparent distress, + obese Eyes: normal inspection, sclerae normal ENT: + pertinent finding (Hard of hearing) Neck: supple, trachea midline Respiratory/Chest: + wheezing (Diffuse expiratory wheezes, some rhonchi, diminished breath sounds throughout, he has a significant coughing attack after taking deep breaths and afterwards appears tachypneic and in mild respiratory distress which improves over the following minute) Cardiovascular: regular rate, rhythm, + pertinent finding (Trace pitting edema of the legs bilaterally) Abdomen: normal bowel sounds, non tender, soft (But protuberant) Extremities: no calf tenderness Neurologic/Psychiatric: alert, + pertinent finding (Problems with short-term memory) Skin: normal color, warm/dry Laboratory Results Last 24 Hours Test 01/04/18 07:02 01/04/18 17:11 01/04/18 17:12 01/04/18 20:32 White Blood Count 4.52 K/uL Red Blood Count 4.45 M/uL Hemoglobin 13.5 g/dL Hematocrit 38.7 % Mean Corpuscular Volume 87.0 fL Mean Corpuscular Hemoglobin 30.3 pg Mean Corpuscular Hemoglobin Concent 34.9 g/dl RDW Standard Deviation 44.2 fL RDW Coefficient of Variation 14.0 % Platelet Count 165 K/uL Mean Platelet Volume 9.6 fL Sodium Level 135 mmol/L Potassium Level 4.3 mmol/L Chloride Level 100 mmol/L Carbon Dioxide Level 28 mmol/L Anion Gap 7.0 mmol/L Blood Urea Nitrogen 20 mg/dl Creatinine 1.12 mg/dl Est Creatinine Clear Calc Drug Dose 53.1 ml/min Estimated GFR () 72.5 Estimated GFR (Non- 62.6 BUN/Creatinine Ratio 18.0 Random Glucose 333 mg/dl Calcium Level 9.2 mg/dl Beta-Hydroxybutyric Acid 1.47 mg/dL Bedside Glucose 392 mg/dl 371 mg/dl 393 mg/dl Test 01/04/18 20:34 01/04/18 22:50 Bedside Glucose 391 mg/dl 400 mg/dl Assessment and Plan This patient is a 77 y/o male with a history of likely asthma, HTN, HLD, chronic diastolic CHF, h/o PE on Eliquis, chronic anemia, h/o prostate cancer s/ p prostatectomy, dementia, BISI on CPAP, and GERD who presented to the ED on with worsening shortness of breath, wheezing, and productive cough. The patient presents to the ED afebrile, VSS. Patient was oxygenating at 96% on room air on arrival but did start to desaturate and then placed on 2L NC, which he has been using at home lately. Today he was 87% on room air was oxygen. CXR no acute disease, EKG no ischemic changes. Lactic acid elevated at 2.6, labs otherwise grossly unremarkable. Acute asthma exacerbation/acute on chronic hypoxic respiratory failure-with diffuse wheezing, tachypnea, and mild respiratory distress, pulse ox 87% on room air, remains on 2 L. -Continue O2 by protocol, currently on 2L NC and wean off as tolerated -Continue Solu-Medrol 60 mg IV and taper down to every 8 hours given significant hyperglycemia -DuoNebs QIDR and q2h prn SOB/wheezing -Continue Symbicort BID, Spiriva, Singulair. Hold home Combivent due to scheduled DuoNebs -Continue Mucinex 1200 mg PO BID -Continue antitussives with Tessalon Perles 200 mg PO TID -Pulmonary toilet with flutter valve and incentive spirometry -Pulmonology consultation appreciated DM 2 with Hyperglycemia-no diagnosis of diabetes mellitus type 2 that he is aware of, however his last hemoglobin A1c was in the diabetic range at 6.7% in 09/2017. Not on medications at home. Hyperglycemia secondary to corticosteroids -Give Lantus 8 units now and start sliding scale insulin -May end up needing insulin drip -Taper IV steroids down BISI-on CPAP-stable -Continue CPAP at nighttime HTN, HLD, chronic diastolic CHF--stable -Continue Lopressor 25 mg PO BID, Imdur 60 mg PO qd, Lasix 40 mg PO qd H/o PE--stable, diagnosed May 2017 -Continue Eliquis 5 mg PO BID Chronic normocytic anemia-stable at 13 -Iron studies from several years ago were normal -EGD in 2013 was normal except for a hiatal hernia -Monitor CBC H/o prostate cancer s/p prostatectomy--noted, no acute issues Dementia-stable -Supportive care GERD -Continue Zantac BID DVT prophylaxis -Eliquis -MONTSERRAT barrios, GISELLEs Disposition-to remain in hospital at least 1-2 more days to treat his acute asthma exacerbation Code Status -Level I, FULL RESUSCITATION STATUS
[2018-01-05] VITALS (10 sets, daily range): BP systolic 126–138; BP diastolic 63–79; PULSE 57–91; TEMP 36.6–37.1; O2SAT 93–97
[2018-01-05] MEDS: INSULIN REGULAR 250 UNITS in SODIUM CHLORIDE 0.9% 250ML 250 ML IV SCH ×15 (00:55→23:46)
[2018-01-05] MEDS ORDERED: METHYLPREDNISOLONE IV 60 MG in SYRINGE 0 ML IV SCH (06:00)
[2018-01-05] MEDS: ALBUT/IPRATROP 3MG/0.5MG NEB 3 ML VIAL INH SCH ×4 (07:17→19:31)
[2018-01-05 07:33] LABS: HEMATOCRIT 38.3 % (42-52); HEMOGLOBIN 13.3 g/dL (14.0-18.0); MEAN CELL VOLUME 87.2 fL (80-100); MEAN CORPUSCULAR HEMOGLOBIN 30.3 pg (25-34); MEAN CORPUSCULAR HGB CONC 34.7 g/dl (32-36); MEAN PLATELET VOLUME 9.4 fL (7.4-10.4); PLATELET COUNT 151 K/uL (130-400); RED CELL DISTRIBUTION WIDTH CV 13.9 % (11.5-14.5); RED CELL DISTRIBUTION WIDTH SD 44.4 fL (36.4-46.3); WHITE BLOOD COUNT 6.99 K/uL (4.8-10.8)
[2018-01-05] MEDS ORDERED: INSULIN GLARGINE SOLOSTAR 100 UNITS/ML 3 ML PEN SC SCH (08:00)
[2018-01-05 08:12] LABS: CALCIUM 9.5 mg/dl (8.5-10.1); CREATININE 1.01 mg/dl (0.60-1.40); POTASSIUM 3.9 mmol/L (3.5-5.1)
[2018-01-05 08:26] LABS: HEMOGLOBIN A1C 7.5 % (4.5-5.6)
[2018-01-05] MEDS: TIOTROPIUM BROMIDE 5 PUFF/90 MCG INH INH SCH (08:27)
[2018-01-05] MEDS: BUDESONIDE/FORMOTEROL FUMARATE 160/4.5 60 PUFFS/INHALER INH SCH ×2 (08:27→20:13)
[2018-01-05] MEDS: APIXABAN 2.5 MG TAB PO SCH ×2 (08:28→20:17)
[2018-01-05] MEDS: ISOSORBIDE MONONITRATE 60 MG TABCR PO SCH (08:29)
[2018-01-05] MEDS: FUROSEMIDE 40 MG TAB PO SCH (08:29)
[2018-01-05] MEDS: METOPROLOL TARTRATE 25 MG TAB PO SCH ×2 (08:30→20:16)
[2018-01-05] MEDS: MONTELUKAST SOD 10 MG TAB PO SCH (08:30)
[2018-01-05] MEDS: RANITIDINE HCL 150 MG TAB PO SCH ×2 (08:30→20:15)
[2018-01-05] MEDS: GUAIFENESIN 600 MG TABCR PO SCH ×2 (08:31→20:15)
[2018-01-05] MEDS: BENZONATATE 100MG CAP PO SCH ×3 (08:31→20:16)
[2018-01-05] MEDS: INSULIN ASPART 100 UNITS/ML 3 ML PEN SC SCH ×4 (08:35→20:17)
[2018-01-05] MEDS ORDERED: INSULIN GLARGINE SOLOSTAR 100 UNITS/ML 3 ML PEN SC ONE ×3 (08:45→21:00)
--- NOTE | 2018-01-05 09:25 | PULMONARY PROGRESS NOTE ---
DATE: 01/05/2018 TIME: 9:00 a.m. SUBJECTIVE: The patient is feeling better. He is not a good historian. The patient has dementia. He recognizes me and he knows he sees me in the office but he cannot recall my name. He suggested that he feels some better but not that great. OBJECTIVE: GENERAL: The patient appears comfortable. Temperature is 36.6. NECK AND ENT: Unremarkable except for a huge neck. HEART: Heart rate is 57 per minute. The rhythm is extremely irregular. I cannot exclude atrial fibrillation. The patient has had periods of irregularity in the past; however, that did not reveal atrial fibrillation. There is a rhythm strip from 01/03/2018 that shows a quite irregular rhythm but with atrial activity. LUNGS: Auscultation of the lung valentin reveals significant improvement in his wheezing. It is now mild. This is almost his baseline. Respiratory rate is 20. Faint wheezing is heard. Saturation is 97% on room air. Blood pressure today 126/63. EXTREMITIES: Reveal +1 edema bilaterally. ABDOMEN: Remains obese. Bowel sounds are present. LABORATORY DATA: White count is 6.99. Hemoglobin 13.3. Platelets are 151,000. Blood sugar this morning is 180. Electrolytes are normal. BUN 26 with a creatinine of 1.01. The BUN previously was 20. IMPRESSIONS: 1. Asthma with exacerbation. 2. Obstructive sleep apnea. 3. Obesity. 4. Dementia. COMMENTS: The patient appears to be about at baseline. He is, however, still on high-dose methylprednisolone which may be contributing to that improvement. We will change to prednisone. He may be ready for discharge later today or tomorrow if he is doing well. When he goes home, would taper the prednisone gradually over about 2 weeks. He should follow up with me in the office in about 2 weeks or so. He should use his nebulizer treatments regularly at home, which I do not think he actually likes to do.
--- NOTE | 2018-01-05 10:47 | Pharmacy Progress Note ---
Glycemic Control Intl Consult Date of Service Jan 05, 2018. Scope Glycemic Pharmacist consulted by Dr Evans on 01/04/18 for glycemic control and to write orders per [facility] inpatient glycemic control protocol Objective Weight (Kilograms): 97.700 Accuchecks BSG (last 24hrs): Test 01/04/18 17:11 01/04/18 17:12 01/04/18 20:32 01/04/18 20:34 Bedside Glucose 392 mg/dl (70-99) 371 mg/dl (70-99) 393 mg/dl (70-99) 391 mg/dl (70-99) Test 01/04/18 22:50 01/04/18 23:53 01/05/18 00:50 01/05/18 01:48 Bedside Glucose 400 mg/dl (70-99) 361 mg/dl (70-99) 347 mg/dl (70-99) 312 mg/dl (70-99) Test 01/05/18 02:51 01/05/18 03:52 01/05/18 04:52 01/05/18 05:51 Bedside Glucose 318 mg/dl (70-99) 290 mg/dl (70-99) 271 mg/dl (70-99) 248 mg/dl (70-99) Test 01/05/18 07:09 01/05/18 07:52 Random Glucose 202 mg/dl (70-99) Bedside Glucose 180 mg/dl (70-99) Laboratory Data (last 24hrs) Test 01/05/18 07:09 Anion Gap 5.0 mmol/L BUN/Creatinine Ratio 25.2 Blood Urea Nitrogen 26 mg/dl Creatinine 1.01 mg/dl Hemoglobin A1c 7.5 % Potassium Level 3.9 mmol/L Sodium Level 138 mmol/L White Blood Count 6.99 K/uL HbA1c Test 01/05/18 07:09 Hemoglobin A1c 7.5 % (4.5-5.6) H Recent Pertinent Medications Outpatient Anti-diabetic Regimen: * N/A The patient is currently receiving: * Basal insulin: Lantus 8 units SQ x 1 dose * Correctional Insulin: Novolog Correction per scale ACHS Goal Range: Low 120 mg/dL - High 200 mg/dL Correction Factor: 30 mg/dL/unit * Prandial insulin: Per carb ratio of 1 unit per 20 grams CHO consumed * Pt initiated on IV insulin infusion overnight for sustained severe hyperglycemia Risk Factors for Insulin Resistance: * Steroids * Diet Assessment & Plan ASSESSMENT: * 77yo male with new diagnosis of diabetes per A1c. * A1c = 7.5% on 01/05/18. Per ADA A1c >6.5% is diagnostic for diabetes. A1c maybe slightly inflated d/t recent prednisone use but pt would benefit from starting metformin on discharge even if just for weight loss/pre-diabetes. * BSGs SIGNIFICANTLY elevated secondary to Solumedrol. IV insulin infusion initiated overnight and now BSGs trending downwards. * Steroids tapered from RTC solumedrol to once daily prednisone. Should yield an improvement in BSGs with step down in steroid dosing. * Will start the transition process to SQ/oral agents to prep for discharge in the next day or so. PLAN FOR INPATIENT GLYCEMIC CONTROL: * Continue IV insulin infusion per protocol * Goal Range 120 - 160 mg/dl * Basal insulin * Lantus 40 units (0.4 units/kg) SQ x 1 dose * Recommended dosing of insulin for steroid induced hyperglycemia is 0.4 units/ kg for doses of prednisone >40 mg/day. * Bolus Insulin {once IV insulin infusion off} * NovoLog per scale ACHS or Q6hrs while NPO * Goal Range: Low 110 mg/dL - High 140 mg/dL * Correction Factor: 25 mg/dL/unit * Nutritional / Prandial insulin per carb ratio of 1 unit per 8 grams CHO consumed Discharge Recs: * A1c = 7.5% recommend initiating metformin * Started metformin XR 500mg PO daily with evening meal in house. Pt can continue to titrate metformin dosing upwards as recommended with PCP. Dosage increases should be made in increments of 500 mg weekly, up to 2,000 mg/day PO, given in divided doses. Doses above 2000 mg/day may be better tolerated if divided and given 3 times per day with meals. Max: 2,550 mg/day PO, in divided doses * Pt may require short course of NPH with prednisone taper on d/c * Please note that the plan above was derived based on current level of insulin resistance and hospital stress. These recommendations are appropriate for inpatient admission only. Plan of care upon discharge will need to be reassessed to avoid potential outpatient hypo/hyperglycemia. Thank you.
--- NOTE | 2018-01-05 12:03 | Hospitalist Progress Note ---
Hospitalist Progress Note Date of Service Jan 05, 2018. Subjective Pt evaluation today including: conversation w/ patient, conversation w/ family Patient anxious for discharge. He thinks his breathing feels fine, but his family reports he is still coughing quite a bit in fits. He had significant hyperglycemia overnight requiring an insulin drip and that is now improving. All Other Systems: Reviewed and Negative Objective Vital Signs Date Time Temp Pulse Resp B/P (MAP) Pulse Ox O2 Delivery O2 Flow Rate FiO2 01/05/18 07:31 36.6 57 20 126/63 (84) 97 Room Air 01/05/18 07:17 66 18 95 Room Air 01/05/18 00:05 BiPAP 01/04/18 23:25 36.6 75 20 116/68 (84) 93 CPAP 01/04/18 19:55 85 18 93 Room Air 01/04/18 16:00 93 Nasal Cannula 2.0 01/04/18 15:50 63 16 87 Room Air 01/04/18 14:42 37.0 65 20 112/59 (76) 93 Physical Exam General Appearance: no apparent distress, + obese Eyes: normal inspection, sclerae normal ENT: + pertinent finding (Hard of hearing) Neck: trachea midline Respiratory/Chest: no respiratory distress, no accessory muscle use, + wheezing (Still with diffuse wheezing, but improved from yesterday with improved air movement) Cardiovascular: regular rate, rhythm, no edema, no murmur Abdomen: normal bowel sounds, non tender, soft (With mild protuberance) Extremities: normal inspection, no pedal edema, no calf tenderness Neurologic/Psychiatric: alert, normal mood/affect Skin: normal color, warm/dry, no rash Laboratory Results Last 24 Hours Test 01/04/18 17:11 01/04/18 17:12 01/04/18 20:32 01/04/18 20:34 Bedside Glucose 392 mg/dl 371 mg/dl 393 mg/dl 391 mg/dl Test 01/04/18 22:50 01/04/18 23:53 01/05/18 00:50 01/05/18 01:48 Bedside Glucose 400 mg/dl 361 mg/dl 347 mg/dl 312 mg/dl Test 01/05/18 02:51 01/05/18 03:52 01/05/18 04:52 01/05/18 05:51 Bedside Glucose 318 mg/dl 290 mg/dl 271 mg/dl 248 mg/dl Test 01/05/18 07:09 01/05/18 07:52 01/05/18 10:53 White Blood Count 6.99 K/uL Red Blood Count 4.39 M/uL Hemoglobin 13.3 g/dL Hematocrit 38.3 % Mean Corpuscular Volume 87.2 fL Mean Corpuscular Hemoglobin 30.3 pg Mean Corpuscular Hemoglobin Concent 34.7 g/dl RDW Standard Deviation 44.4 fL RDW Coefficient of Variation 13.9 % Platelet Count 151 K/uL Mean Platelet Volume 9.4 fL Sodium Level 138 mmol/L Potassium Level 3.9 mmol/L Chloride Level 103 mmol/L Carbon Dioxide Level 30 mmol/L Anion Gap 5.0 mmol/L Blood Urea Nitrogen 26 mg/dl Creatinine 1.01 mg/dl Est Creatinine Clear Calc Drug Dose 58.9 ml/min Estimated GFR () 82.2 Estimated GFR (Non- 70.9 BUN/Creatinine Ratio 25.2 Random Glucose 202 mg/dl Estimated Average Glucose 169 mg/dl Hemoglobin A1c 7.5 % Calcium Level 9.5 mg/dl Bedside Glucose 180 mg/dl 251 mg/dl Assessment and Plan This patient is a 77 y/o male with a history of likely asthma, HTN, HLD, chronic diastolic CHF, h/o PE on Eliquis, chronic anemia, h/o prostate cancer s/ p prostatectomy, dementia, BISI on CPAP, and GERD who presented to the ED on with worsening shortness of breath, wheezing, and productive cough. The patient presents to the ED afebrile, VSS. Patient was oxygenating at 96% on room air on arrival but did start to desaturate and then placed on 2L NC, which he has been using at home lately. The day after admission, his pulse ox was 87 % on room air was placed on oxygen. CXR no acute disease, EKG no ischemic changes. Lactic acid elevated at 2.6, labs otherwise grossly unremarkable. Acute asthma exacerbation/acute on chronic hypoxic respiratory failure-with diffuse wheezing, tachypnea, and mild respiratory distress, pulse ox 87% on room air, remains on 2 L.-Somewhat improved today, but still with significant wheezing and on oxygen. Formal PFTs last year were normal as per pulmonology. This could still be consistent with asthma. -Continue O2 by protocol, currently on 2L NC and wean off as tolerated -We will have nurse ambulate him on room air with pulse ox on him to see if he is likely going to need oxygen on discharge -Will need formal 2 step prior to discharge -We will discontinue IV Solu-Medrol given significant hyperglycemia requiring insulin drip-switch to p.o. prednisone today and will taper down after discharge -Continue DuoNebs QIDR and q2h prn SOB/wheezing -Continue Symbicort BID, Spiriva, Singulair. Hold home Combivent due to scheduled DuoNebs -Continue Mucinex 1200 mg PO BID -Continue antitussives with Tessalon Perles 200 mg PO TID -Pulmonary toilet with flutter valve and incentive spirometry -Pulmonology consultation appreciated -Will need outpatient pulmonology follow-up after discharge DM 2 with Hyperglycemia-no diagnosis of diabetes mellitus type 2 that he is aware of, however his last hemoglobin A1c was in the diabetic range at 6.7% in 09/2017. Not on medications at home. Hyperglycemia secondary to corticosteroids and now hemoglobin A1c is up to 7.5% -Counseled on his diagnosis of diabetes -ADA diet here and nutritional counseling-consulted dietary -Wean off insulin drip as per pharmacy glycemic management, starting metformin today -Switch to p.o. prednisone which should help also BISI-on CPAP-stable -Continue CPAP at nighttime HTN, HLD, chronic diastolic CHF--stable -Continue Lopressor 25 mg PO BID, Imdur 60 mg PO qd, Lasix 40 mg PO qd H/o PE--stable, diagnosed May 2017 -Continue Eliquis 5 mg PO BID Chronic normocytic anemia-stable at 13 -Iron studies from several years ago were normal -EGD in 2013 was normal except for a hiatal hernia -Monitor CBC H/o prostate cancer s/p prostatectomy--noted, no acute issues Dementia-stable -Supportive care GERD -Continue Zantac BID DVT prophylaxis -Eliquis -MONTSERRAT barrios, GISELLEs Disposition-to remain in hospital at least 1-2 more days to treat his acute asthma exacerbation, although he is quite anxious for discharge to home on Sunday Code Status -Level I, FULL RESUSCITATION STATUS
[2018-01-05] MEDS: METFORMIN HCL 500 MG TABCR PO SCH (12:22)
[2018-01-05] MEDS ORDERED: INSULIN PROTOCOL GOAL RANGE ONE (12:45)
[2018-01-05] MEDS: DEXTROSE 50% 50 ML SYR IV PRN (15:01)
[2018-01-05] MEDS ORDERED: DC IV INSULIN INFUSION SCH (16:00)
[2018-01-05] MEDS ORDERED: NURSING VERBAL MED ORDER ONE (17:00)
[2018-01-06] VITALS (12 sets, daily range): BP systolic 114–153; BP diastolic 69–86; PULSE 57–86; TEMP 36.6–36.9; O2SAT 91–97
[2018-01-06] MEDS: INSULIN REGULAR 250 UNITS in SODIUM CHLORIDE 0.9% 250ML 250 ML IV SCH ×4 (01:26→05:53)
[2018-01-06] MEDS: DEXTROSE 50% 50 ML SYR IV PRN (05:33)
[2018-01-06] MEDS: ALBUT/IPRATROP 3MG/0.5MG NEB 3 ML VIAL INH SCH ×4 (07:11→19:05)
[2018-01-06 07:13] LABS: HEMATOCRIT 39.6 % (42-52); HEMOGLOBIN 13.5 g/dL (14.0-18.0); MEAN CELL VOLUME 87.4 fL (80-100); MEAN CORPUSCULAR HEMOGLOBIN 29.8 pg (25-34); MEAN CORPUSCULAR HGB CONC 34.1 g/dl (32-36); MEAN PLATELET VOLUME 9.3 fL (7.4-10.4); PLATELET COUNT 182 K/uL (130-400); RED CELL DISTRIBUTION WIDTH CV 14.2 % (11.5-14.5); RED CELL DISTRIBUTION WIDTH SD 45.5 fL (36.4-46.3); WHITE BLOOD COUNT 9.79 K/uL (4.8-10.8)
[2018-01-06 07:59] LABS: CALCIUM 8.9 mg/dl (8.5-10.1); CREATININE 0.96 mg/dl (0.60-1.40)
[2018-01-06] MEDS: TIOTROPIUM BROMIDE 5 PUFF/90 MCG INH INH SCH (08:26)
[2018-01-06] MEDS: APIXABAN 2.5 MG TAB PO SCH ×2 (08:27→19:53)
[2018-01-06] MEDS: BUDESONIDE/FORMOTEROL FUMARATE 160/4.5 60 PUFFS/INHALER INH SCH ×2 (08:27→19:55)
[2018-01-06] MEDS: METOPROLOL TARTRATE 25 MG TAB PO SCH ×2 (08:28→19:55)
[2018-01-06] MEDS: FUROSEMIDE 40 MG TAB PO SCH (08:28)
[2018-01-06] MEDS: ISOSORBIDE MONONITRATE 60 MG TABCR PO SCH (08:28)
[2018-01-06] MEDS: BENZONATATE 100MG CAP PO SCH ×3 (08:29→19:51)
[2018-01-06] MEDS: MONTELUKAST SOD 10 MG TAB PO SCH (08:29)
[2018-01-06] MEDS: RANITIDINE HCL 150 MG TAB PO SCH ×2 (08:30→19:53)
[2018-01-06] MEDS: GUAIFENESIN 600 MG TABCR PO SCH ×2 (08:30→19:52)
[2018-01-06] MEDS: INSULIN ASPART 100 UNITS/ML 3 ML PEN SC SCH ×4 (08:33→21:18)
[2018-01-06] MEDS: INSULIN GLARGINE SOLOSTAR 100 UNITS/ML 3 ML PEN SC SCH (08:34)
--- NOTE | 2018-01-06 10:09 | PULMONARY PROGRESS NOTE ---
DATE: 01/06/2018 TIME: 9:50 a.m. SUBJECTIVE: The patient is a poor historian. He admits that he is still short of breath. He remains pleasantly confused. He has not been coughing up any phlegm. Nursing staff did say that he did reasonably well with walking. OBJECTIVE: GENERAL: The patient was sleeping when I came into the room. He was sitting in a chair. He was in no distress. VITAL SIGNS: Temperature is 36.9. Heart rate was 77 per minute. The rhythm is regular. Blood pressure was 131/81. LUNGS: Lung valentin revealed moderate wheeze and rhonchi bilaterally. These are actually increased from what I heard yesterday. Saturation is 95% on 2 liters. ABDOMEN: Remains obese. Bowel sounds were present. EXTREMITIES: Show +1 to +2 edema of both lower extremities. LABORATORY DATA: White count is 9.79. Hemoglobin 13.5. Platelets 182,000. Potassium 3.8. Sodium 140, chloride 105, bicarbonate 30. BUN was 25 with a creatinine of 0.96. IMPRESSIONS: 1. Asthma with exacerbation. 2. Obstructive sleep apnea. 3. Obesity. 4. Dementia. I do not believe the patient is as good today. It may be because the steroids were changed from IV to oral. I do not believe he is ready for discharge at present the way he sounds today. He is now on prednisone 40 mg a day, but I am going to give him an extra dose this afternoon. We would continue with his other medicines. Hopefully, he just needs another day or so.
--- NOTE | 2018-01-06 10:40 | Pharmacy Progress Note ---
Pharmacy Glycemic Short Note 2 Date of Service Jan 06, 2018. OUTPATIENT ANTIDIABETIC REGIMEN: * N/A - new diagnosis Item Value Date Time Bedside Glucose 248 mg/dl H 01/05/18 0551 Bedside Glucose 180 mg/dl H 01/05/18 0752 Bedside Glucose 251 mg/dl H 01/05/18 1053 Bedside Glucose 212 mg/dl H 01/05/18 1151 Bedside Glucose 199 mg/dl H 01/05/18 1251 Bedside Glucose 183 mg/dl H 01/05/18 1351 Bedside Glucose 83 mg/dl 01/05/18 1455 Bedside Glucose 237 mg/dl H 01/05/18 1519 Bedside Glucose 182 mg/dl H 01/05/18 1616 Bedside Glucose 222 mg/dl H 01/05/18 1725 Bedside Glucose 305 mg/dl H 01/05/18 1821 Bedside Glucose 335 mg/dl H 01/05/18 1920 Bedside Glucose 307 mg/dl H 01/05/18 2016 Bedside Glucose 309 mg/dl H 01/05/18 2116 Bedside Glucose 243 mg/dl H 01/05/18 2213 Bedside Glucose 193 mg/dl H 01/05/18 2318 Bedside Glucose 180 mg/dl H 01/06/18 0024 Bedside Glucose 152 mg/dl H 01/06/18 0115 Bedside Glucose 123 mg/dl H 01/06/18 0218 Bedside Glucose 132 mg/dl H 01/06/18 0321 Bedside Glucose 112 mg/dl H 01/06/18 0423 Bedside Glucose 90 mg/dl 01/06/18 0524 Bedside Glucose 138 mg/dl H 01/06/18 0549 Bedside Glucose 102 mg/dl H 01/06/18 0649 Bedside Glucose 103 mg/dl H 01/06/18 0705 ASSESSMENT: * 77yo male with new diagnosis of diabetes per A1c. * A1c = 7.5% on 01/05/18. Per ADA A1c >6.5% is diagnostic for diabetes. A1c maybe slightly inflated d/t recent prednisone use but pt would benefit from starting metformin on discharge even if just for weight loss/pre-diabetes. * 01/04/18: BSGs SIGNIFICANTLY elevated secondary to Solumedrol. IV insulin infusion initiated. * 01/05/18: Steroids decreased to prednsione daily. Pt continued on IV insulin infusion, SQ basal bolus insulin regimen initiated as well to facilitate transitioning off of drip. Criteria to transition off of IV insulin infusion was : BSG <180 mg/dl x 2 AND IV insulin rate <1 unit/hr. IV insulin infusion stopped 01/06/18 @ 0700 when criteria met. Pt received 103 units SQ insulin + IV insulin infusion. * Pt continues on prednisone 40mg PO daily but is going to get an extra dose this afternoon at 1600. Typically 0.4units/kg insulin is needed to cover doses of prednisone >40 mg/day. Will continue this dosing + NovoLog scale and titrate based on BSG Trends. Anticipating pt will need ~ 80-100 units of insulin today. PLAN FOR INPATIENT GLYCEMIC CONTROL: * D/C IV insulin infusion per protocol * * Basal insulin * Lantus 40 units (0.4 units/kg) SQ daily. Will add a PRN dose of Lantus for this evening if BSG >180 mg/dl since prednisone is BID. * Recommended dosing of insulin for steroid induced hyperglycemia is 0.4 units/ kg for doses of prednisone >40 mg/day. * Bolus Insulin * NovoLog per scale ACHS or Q6hrs while NPO * Goal Range: Low 110 mg/dL - High 140 mg/dL * Correction Factor: 15 mg/dL/unit * Nutritional / Prandial insulin per carb ratio of 1 unit per 5 grams CHO consumed Discharge Recs: * A1c = 7.5% recommend initiating metformin * Started metformin XR 500mg PO daily with evening meal in house. Pt can continue to titrate metformin dosing upwards as recommended with PCP. Dosage increases should be made in increments of 500 mg weekly, up to 2,000 mg/day PO, given in divided doses. Doses above 2000 mg/day may be better tolerated if divided and given 3 times per day with meals. Max: 2,550 mg/day PO, in divided doses * Pt may require short course of NPH with prednisone taper on d/c
--- NOTE | 2018-01-06 14:28 | Progress Note ---
Subjective Date of Service: Jan 06, 2018. Subjective Pt evaluation today including: conversation w/ patient, physical exam, chart review, lab review, review of studies, conversation w/ bus info consultant, review of inpatient medication list Difficulty breathing is better, but still wheezing, out of bed to the chair, Problem List Medical Problems: (1) Abdominal pain Status: Acute (2) Anemia Status: Acute (3) Asthma exacerbation Status: Acute (4) Bronchitis Status: Acute (5) Cellulitis of hand, right Status: Acute (6) Cough Status: Acute (7) Fall Status: Acute (8) Generalized abdominal pain Status: Acute (9) Hyperkalemia Status: Acute (10) Intractable headache Status: Acute (11) Non-cardiac chest pain Status: Acute (12) Sepsis Status: Acute (13) Sigmoid diverticulitis Status: Acute (14) Sinusitis Status: Acute (15) Sinusitis Status: Acute (16) Thrombocytopenia Status: Acute (17) Thrombocytopenia Status: Acute Review of Systems Constitutional: No fever, No chills, No sweats, No weight loss, No weakness, No fatigue, No problem reported Eyes: No worsening of vision, No eye pain, No redness, No discharge, No diplopia ENT: No hearing loss, No unusual epistaxis, No nasal symptoms, No sore throat, No tinnitus, No dental problems, No trouble swallowing Respiratory: + cough, + wheezing, + shortness of breath, No sputum, No dyspnea on exertion, No dyspnea at rest, No hemoptysis Cardiac: + edema, No chest pain, No orthopnea, No PND, No claudication, No palpitations Abdomen: No pain, No nausea, No vomiting, No diarrhea, No constipation Musculoskeletal: No joint pain, No muscle pain, No swelling, No calf pain Male : No dysuria, No urinary frequency, No incontinence, No nocturia more than once/night, No slowing stream, No hematuria Neurologic: No memory loss, No paralysis, No weakness, No numbness/tingling, No vertigo, No balance problems Psychiatric: No depression symptoms, No anhedonism, No anxiety, No insomnia, No substance abuse Heme: No abnormal bleeding/bruising, No clotting problems, No swollen lymph nodes, No night sweats Endo: No fatigue, No excessive thirst, No excessive urination Skin: No rash, No itch, No new/changing skin lesions, No color change, No bleeding Objective Vital Signs Date Time Temp Pulse Resp B/P (MAP) Pulse Ox O2 Delivery O2 Flow Rate FiO2 01/06/18 11:31 72 18 94 Nasal Cannula 2.0 01/06/18 09:16 77 18 95 Nasal Cannula 2.0 01/06/18 08:44 64 01/06/18 08:00 97 Room Air 01/06/18 07:54 36.9 57 18 131/81 (98) 97 Room Air 01/06/18 07:12 86 18 97 Nasal Cannula 2.0 01/06/18 00:10 Nasal Cannula 2.0 01/05/18 23:50 36.6 62 20 129/79 (96) 97 Nasal Cannula 2.0 01/05/18 20:11 68 134/78 (96) 01/05/18 20:00 Nasal Cannula 2.0 01/05/18 19:00 91 18 97 Nasal Cannula 2.0 01/05/18 17:04 81 18 95 Nasal Cannula 2.0 01/05/18 16:16 37.1 67 18 138/79 (98) 96 Nasal Cannula 2.0 01/05/18 16:00 97 Nasal Cannula 2.0 01/05/18 15:19 71 18 93 Room Air Physical Exam General Appearance: WD/WN, no apparent distress, + obese Eyes: normal inspection, PERRL, EOMI, sclerae normal ENT: normal ENT inspection, hearing grossly normal, pharynx normal Neck: supple, no adenopathy, thyroid normal, no JVD, no carotid bruits, trachea midline Respiratory/Chest: chest non-tender, normal breath sounds, no respiratory distress, no accessory muscle use, + decreased breath sounds, + wheezing Cardiovascular: regular rate, rhythm, no gallop, no JVD, no murmur Abdomen: normal bowel sounds, non tender, soft, no organomegaly, no pulsatile mass Extremities: normal range of motion, non-tender, normal inspection, no pedal edema, no calf tenderness, normal capillary refill, pelvis stable, + swelling 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, no motor/sensory deficits, alert, normal mood/affect, oriented x 3 Skin: normal color, warm/dry, no rash Lymphatic: no adenopathy Laboratory Results Last 24 Hours Test 01/05/18 14:55 01/05/18 15:19 01/05/18 16:16 01/05/18 17:25 Bedside Glucose 83 mg/dl 237 mg/dl 182 mg/dl 222 mg/dl Test 01/05/18 18:21 01/05/18 19:20 01/05/18 20:16 01/05/18 21:16 Bedside Glucose 305 mg/dl 335 mg/dl 307 mg/dl 309 mg/dl Test 01/05/18 22:13 01/05/18 23:18 01/06/18 00:24 01/06/18 01:15 Bedside Glucose 243 mg/dl 193 mg/dl 180 mg/dl 152 mg/dl Test 01/06/18 02:18 01/06/18 03:21 01/06/18 04:23 01/06/18 05:24 Bedside Glucose 123 mg/dl 132 mg/dl 112 mg/dl 90 mg/dl Test 01/06/18 05:49 01/06/18 06:26 01/06/18 06:49 01/06/18 07:05 Bedside Glucose 138 mg/dl 102 mg/dl 103 mg/dl White Blood Count 9.79 K/uL Red Blood Count 4.53 M/uL Hemoglobin 13.5 g/dL Hematocrit 39.6 % Mean Corpuscular Volume 87.4 fL Mean Corpuscular Hemoglobin 29.8 pg Mean Corpuscular Hemoglobin Concent 34.1 g/dl RDW Standard Deviation 45.5 fL RDW Coefficient of Variation 14.2 % Platelet Count 182 K/uL Mean Platelet Volume 9.3 fL Sodium Level 140 mmol/L Potassium Level mmol/L Chloride Level 105 mmol/L Carbon Dioxide Level 30 mmol/L Anion Gap 5.0 mmol/L Blood Urea Nitrogen 25 mg/dl Creatinine 0.96 mg/dl Est Creatinine Clear Calc Drug Dose 62.0 ml/min Estimated GFR () 87.4 Estimated GFR (Non- 75.4 BUN/Creatinine Ratio 25.7 Random Glucose 91 mg/dl Calcium Level 8.9 mg/dl Test 01/06/18 08:14 01/06/18 08:42 01/06/18 11:49 Potassium Level mmol/L 3.8 mmol/L Bedside Glucose 195 mg/dl Assessment and Plan 77 y/o male admitted on 01/03/2018 with worsening shortness of breath, wheezing , and productive cough. Acute asthma exacerbation/acute on chronic hypoxic respiratory failure upon admission mild respiratory distress, pulse ox 87% on room air, remains on 2 L upon admission Formal PFTs last year were normal as per pulmonology consistent with asthma. Continue current care, oxygen support, wean off as tolerated, up and walk, incentive spirometry, need formal 2 step prior to discharge Has switch Solu-Medrol to p.o. prednisone today and will taper down after discharge Patient still has a lot of wheezing need to continue DuoNebs QIDR and q2h prn SOB/wheezing Continue Symbicort BID, Spiriva, Singulair. Hold home Combivent due to scheduled DuoNebs Continue Mucinex 1200 mg PO BID Pulmonary consult appreciated, need outpatient pulmonology follow-up after discharge DM 2 with Hyperglycemia New diagnosed uncontrolled diabetic, with hemoglobin A1c is up to 7.5% Past medical history of likely asthma, HTN, HLD, chronic diastolic CHF, h/o PE on Eliquis, chronic anemia, h/o prostate cancer s/p prostatectomy, dementia, BISI on CPAP, and GERD; stable, continue CPAP at nighttime Continue Lopressor 25 mg PO BID, Imdur 60 mg PO qd, Lasix 40 mg PO qd, Continue Eliquis 5 mg PO BID Chronic normocytic anemia-stable at 13, follow-up H&H and follow-up with PCP H/o prostate cancer s/p prostatectomy--noted, no acute issues, continue current care DVT prophylaxis -[facility] -[facility] Disposition; possible home 1-2 days full code Continued [facility] stay due to: home environment unsafe for pt Discharge planning: home
[2018-01-06] MEDS: METFORMIN HCL 500 MG TABCR PO SCH (17:33)
[2018-01-06] MEDS ORDERED: INSULIN GLARGINE SOLOSTAR 100 UNITS/ML 3 ML PEN SC ONE (21:00)
[2018-01-07] VITALS (8 sets, daily range): BP systolic 128–168; BP diastolic 78–101; PULSE 57–76; TEMP 36.4; O2SAT 94–98
[2018-01-07] MEDS: ALBUT/IPRATROP 3MG/0.5MG NEB 3 ML VIAL INH SCH ×2 (07:28→11:13)
[2018-01-07] MEDS: TIOTROPIUM BROMIDE 5 PUFF/90 MCG INH INH SCH (08:47)
[2018-01-07] MEDS: APIXABAN 2.5 MG TAB PO SCH (08:50)
[2018-01-07] MEDS: ISOSORBIDE MONONITRATE 60 MG TABCR PO SCH (08:51)
[2018-01-07] MEDS: METOPROLOL TARTRATE 25 MG TAB PO SCH (08:53)
[2018-01-07] MEDS: FUROSEMIDE 40 MG TAB PO SCH (08:53)
[2018-01-07] MEDS: MONTELUKAST SOD 10 MG TAB PO SCH (08:55)
[2018-01-07] MEDS: BENZONATATE 100MG CAP PO SCH (08:56)
[2018-01-07] MEDS: RANITIDINE HCL 150 MG TAB PO SCH (08:57)
[2018-01-07] MEDS: GUAIFENESIN 600 MG TABCR PO SCH (08:57)
[2018-01-07] MEDS: BUDESONIDE/FORMOTEROL FUMARATE 160/4.5 60 PUFFS/INHALER INH SCH (08:58)
[2018-01-07] MEDS: INSULIN ASPART 100 UNITS/ML 3 ML PEN SC SCH ×2 (09:17→12:43)
[2018-01-07] MEDS: INSULIN GLARGINE SOLOSTAR 100 UNITS/ML 3 ML PEN SC SCH (09:18)
[2018-01-07] MEDS ORDERED: GFNSR600 PO (13:16)
[2018-01-07] MEDS ORDERED: IPRA1AER2 INH (13:16)
[2018-01-07] MEDS ORDERED: BENZ100C7 PO (13:17)
[2018-01-07] MEDS ORDERED: PRED10TA PO (13:17)
[2018-01-07] MEDS ORDERED: GLCSR500 PO (13:17)
--- NOTE | 2018-01-07 13:24 | Discharge Instructions ---
Discharge Instructions Date of Service Jan 07, 2018. Admission Reason for Admission: Asthma Exacerbation Discharge Discharge Diagnosis / Problem: Asthma Exacerbation and New Diabetes Discharge Goals Goal(s): Decrease discomfort, Improve function, Increase independence Activity Recommendations Activity Limitations: resume your previous activity . Instructions / Follow-Up Instructions / Follow-Up Asthma Exacerbation: - Recommend to continue using your inhalers and nebulizers as prescribed - Can continue Mucinex and Tessalon perles to help thin your mucus and also help with that cough - You will need to be on a slow prednisone (steroid) taper -- Take 40 mg for 3 days - start this tomorrow 01/08 as you had steroids today -- then take 30 mg for 3 days, then take 20 mg x 3 days, then 10 mg x 3 days then stop - You did a test to see if you need oxygen when walking and you do not. Your oxygen saturations were very good with walking and at rest. Continue to use your CPAP for your sleep apnea New Diagnosis of Diabetes: - You were started on Metformin 500 mg at night. This can be adjusted by your family doctor and will help get a follow-up appointment. - Will also give a prescription for a sugar reader. Recommend to check sugars at least twice a day in morning and at night. Can check them randomly in the day if you are feeling funny to make sure your sugars are not too low or too high. - Sugars around 120 are ok and if you just ate they can go up into the 200s but should not stay there. - If your sugars go low around 60-70 and you dont feel good you can drink some juice or a granola bar or other sugary snacks and recheck your sugar in 20 minutes SIGNS OF HYPOGLYCEMIA (LOW SUGAR) Shakiness Nervousness or anxiety Sweating, chills and clamminess Irritability or impatience Confusion, including delirium Rapid/fast heartbeat Lightheadedness or dizziness Hunger and nausea Sleepiness Blurred/impaired vision Tingling or numbness in the lips or tongue Headaches Weakness or fatigue IF YOUR HAVE ANY OF THESE SYMPTOMS CHECK YOUR SUGAR AND CALL YOUR DOCTOR "Please, follow up with Brad PUCKETT on SundayJanuary 14 at 11:00 am. *If you need to change this appointment, call the office at [phone]." Current Hospital Diet Patient's current hospital diet: AHA Diet (Heart Healthy), Diabetes Type 2 Diet Discharge Diet Recommended Diet: AHA Diet (Heart Healthy), Diabetes Type 2 Diet Pending Studies Studies pending at discharge: no Laboratory Results Hemoglobin A1c Test 01/05/18 07:09 Range/Units Estimated Average Glucose 169 mg/dl Hemoglobin A1c 7.5 H 4.5-5.6 % Medical Emergencies . Who to Call and When: Medical Emergencies: If at any time you feel your situation is an emergency, please call 911 immediately. . Non-Emergent Contact Non-Emergency issues call your: Primary Care Provider Call Non-Emergent contact if: you have a fever, your pain is concerning you, you have any medication questions . . "Provider Documentation" section prepared by Alis Graves. .
--- NOTE | 2018-01-07 16:02 | Discharge Summary ---
Discharge Summary Date of Service Jan 07, 2018. Discharge Summary Admission Date: Jan 03, 2018 at 15:53 Discharge Date: Jan 07, 2018 Discharge Disposition: Home Principal Diagnosis: Asthma Exacerbation Problems/Secondary Diagnoses: 1. Persistent Asthma 2. HTN 3. HLD 4. Diastolic CHF 5. H/O PE on Eliquis 6. Iron Deficiency Anemia 7. H/O Prostate CA S/P Prostatectomy 8. Dementia 9. BISI 10. GERD 11. New Diagnosis of Diabetes Immunizations: Have You Had Influenza Vaccine: Yes Influenza Vaccine Date: Jul 05, 2013 History of Tetanus Vaccine?: Unknown History of Pneumococcal: Yes Pneumococcal Date: Oct 04, 2011 History of Hepatitis B Vaccine: Unknown Procedures: SINGLE VIEW CHEST FINDINGS: An AP, portable, upright chest radiograph is compared to study dated 09/26/2017. The examination is degraded by portable technique and apical lordotic positioning. The heart is top normal for projection. There is atherosclerotic calcification of the thoracic aorta. Atelectasis is noted at the left lung base. The lungs and pleural spaces are otherwise clear. No pneumothorax is seen. The skeletal structures are osteopenic. Advanced degenerative change is seen in the visualized spine and shoulders. IMPRESSION: No acute cardiopulmonary abnormality. Consultations: 1. Pulmonology 2. Pharmacy Medication Reconciliation New Medications: Metformin HCl (Metformin HCl ER) 500 Mg Tabcr 500 MG PO QDD for 14 Days, #14 TABS Changed Medications: Benzonatate (Benzonatate) 100 Mg Cap 100 MG PO TID PRN for Cough for 5 Days, #15 CAP (Changed from: [id number]) Prednisone Tab (Prednisone) 10 Mg Tab 10 MG PO UD, #30 TAB (Changed from: Prednisone 20 Mg Tab 40 Mg PO DAILY) Take 40 mg x 3 days then 30 mg x 3 days then 20 mg x 3 days then 10 mg x 3 days Continued Medications: Apixaban (Eliquis) 5 Mg Tab 5 MG PO BID, TAB Budesonide/Formoterol Fumarate (Symbicort 160/4.5 Inhaler) 120 Puffs/ Aero 1 PUFF PO BID Furosemide (Lasix) 20 Mg Tab 40 MG PO DAILY TWO 20 MG TABLETS Guaifenesin Ext Rel (Mucinex Ext Rel) 600 Mg Tabcr 1200 MG PO Q12H for 5 Days, #20 TABS (This prescription has been renewed) Ipratropium-Albuterol (Duoneb) 3 Ml Nebu 1 TREATMENT INH QID PRN for SOB/Wheezing Ipratropium-Albuterol (Combivent Respimat) 1 Aer Aer 1 PUFFS INH BID for 30 Days, #1 INHALER (This prescription has been renewed) Isosorbide Mononitrate Ext Rel (Imdur Ext Rel) 60 Mg Ertab 60 MG PO QAM Metoprolol Tartrate (Lopressor) (Lopressor) 50 Mg Tab 25 MG PO BID Montelukast Sodium (Singulair) 10 Mg Tab 10 MG PO DAILY Nitroglycerin (Nitrostat) 0.4 Mg Sub 0.4 MG UT UD PRN for Chest Pain Ranitidine Hcl (Zantac) 150 Mg Tab 300 MG PO BID Tiotropium [place] (Spiriva Handihaler) 30 Puff/540 Mcg Aerp 1 CAP INH DAILY, INHALER Discharge Exam Review of Systems: Constitutional: No fever, No chills ENT: No nasal symptoms, No sore throat Respiratory: + cough, No sputum, No shortness of breath Cardiovascular: No chest pain Abdomen: No pain, No nausea, No vomiting, No diarrhea, No constipation Genitourinary - Male: No dysuria Hematologic / Lymphatic: No abnormal bleeding/bruising Physical Exam: General Appearance: WD/WN, no apparent distress Eyes: sclerae normal Neck: supple, no JVD, trachea midline Respiratory/Chest: no respiratory distress, no accessory muscle use, + decreased breath sounds (diminished at bases), + wheezing (intermittent exp. ) Cardiovascular: regular rate, rhythm, no gallop, no murmur Abdomen / GI: normal bowel sounds, non tender, soft Extremities: no pedal edema Neurologic/Psychiatric: alert Skin: normal color, warm/dry Hospital Course ADMISSION: This is a 77 y/o male with a history of asthma, HTN, HLD, diastolic CHF, h/o PE on Eliquis, JUWAN, h/o prostate cancer s/p prostatectomy, dementia, BISI, and GERD who presented to the ED on 01/03 with worsening shortness of breath , wheezing, and productive cough. The patient states his symptoms began about 2 weeks ago. The patient saw his wire frame dipper, Dr. Goodrich, who diagnosed him with an asthma exacerbation and gave him a Z-pack and prednisone taper. This did help initially, but after these meds were completed, his breathing became worse again. The patient then saw his PCP earlier this week, who prescribed another prednisone taper. The patient complains of shortness of breath, wheezing, and a productive cough. He typically only wears oxygen during the day as needed, but lately has had to wear continuously. The patient states he cannot even take a deep enough breath to use his inhalers and has been using his neb machine at home. The patient denies fevers, chills, sweats, chest pain , palpitations, claudication, nausea, vomiting, abdominal pain, dysuria, hematuria, urinary retention, paralysis, weakness, numbness and tingling. HOSPITAL COURSE: Acute on Chronic Hypoxic Respiratory Failure 2/2 Acute Asthma Exacerbation: IMPROVING - Patient will complete a slow Prednisone taper of 40 mg x 3 days and reduce by 10 mg every 3 days until complete - Will provide symptomatic relief with Mucinex and Tessalon perles - He should continue his previously prescribed inhalers and respiratory meds; Did refill some Rx - Performed two step and did not qualify for O2. Does have concentrator and CPAP at home for his BISI which he utilizes his concentrator intermittently for his SOB at home per discussion with his - Pulmonology followed in-hospital and recommend continued F/U as outpatient New Onset T2DM with Hyperglycemia: - This is likely in the setting of frequent steroid needs however A1c is 7.5 - BSGs improved with tapering of steroids and implementation of Metformin and SSI - Given age and risk for adverse affect with hypoglycemia will only continue Metformin ER 500 mg daily and this could be titrated up if necessary - Gave an Rx for glucometer, test strips, and lancets. Instructed to check sugars at least BID and could do more if insurance would allow for more frequent testing -- Discussed and gave written instructions of symptoms of hypoglycemia and to check sugar if not feeling well - this was also discussed with given mild dementia in this patient Disposition: - No chronic medications were adjusted or changed and he will continue these as previously prescribed - Recommend PCP F/U and case management assisted with appointment Total Time Spent: Greater than 30 minutes This includes examination of the patient, discharge planning, medication reconciliation, and communication with other providers. Discharge Instructions Please refer to the electronic Patient Visit Report (Discharge Instructions) for additional information. Additional Copies To Brad Mason III, CRNP; Kacey Allison MD
== END 2018-01-07 14:45 | disposition home or self-care (01) | DRG 202 ==
LOC: C.EDB 11:43 → C.4E 15:53 → ENRESERV 16:05
PROVIDERS: ADMIT Internal Medicine; ATTEND Hospitalist
DX: J45.41 Moderate persistent asthma with (acute) exacerbation (principal); J96.21 Acute and chronic respiratory failure with hypoxia; I50.32 Chronic diastolic (congestive) heart failure; Z68.41 Body mass index [BMI] 40.0-44.9, adult; I11.0 Hypertensive heart disease with heart failure; K21.9 Gastro-esophageal reflux disease without esophagitis; E78.5 Hyperlipidemia, unspecified; G47.33 Obstructive sleep apnea (adult) (pediatric); F03.90 Unspecified dementia, unspecified severity, without behavioral disturbance, psychotic disturbance, mood disturbance, and anxiety; D50.9 Iron deficiency anemia, unspecified; E11.65 Type 2 diabetes mellitus with hyperglycemia; E66.01 Morbid (severe) obesity due to excess calories; Z79.01 Long term (current) use of anticoagulants; Z79.52 Long term (current) use of systemic steroids; Z79.899 Other long term (current) drug therapy; Z88.6 Allergy status to analgesic agent; Z85.46 Personal history of malignant neoplasm of prostate; Z86.711 Personal history of pulmonary embolism

== ENCOUNTER 2018-01-24 12:06 | Emergency (ER) | payer BC, OTHER ==
[~2018-01-24] VITALS: Ht 154.9 cm; Wt 97.0 kg
[~2018-01-24 12:06] MED LIST changes: +FURO-85 PO; +GLCSR500 PO; -GUAISYP4 PO; +IPRA1AER2 INH; +IPRASOL4 INH; +ISOS60TA25 PO; -LEVO1TAB33 PO; +METO50TA16 PO; +MONT1TAB3 PO; -OXYC1TAB3 PO; -SPRIN INH; +SPRIN/30 INH; +SYMIN160 PO
[2018-01-24 12:17] VITALS: TEMP 36.4; Ht 154.9 cm; Wt 97.0 kg
[2018-01-24] MEDS ORDERED: ALBUT/IPRATROP 3MG/0.5MG NEB 3 ML VIAL INH STA (13:44)
[2018-01-24 13:49] VITALS: O2SAT 94
--- NOTE | 2018-01-24 13:59 | DIAGNOSTIC IMAGING REPORT ---
CHEST ONE VIEW PORTABLE CLINICAL HISTORY: CHEST PAIN dyspnea COMPARISON STUDY: 01/03/2018 FINDINGS: The bones soft tissues and hemidiaphragms are normal. The cardiomediastinal silhouette is normal. The lungs are clear. The pulmonary vasculature is normal. IMPRESSION: Negative chest. The above report was generated using voice recognition software. It may contain grammatical, syntax or spelling errors. Electronically signed by: Luis Daniel Almeida M.D. 01/24/2018 1:58 PM Dictated Date/Time: 01/24/2018 1:57 PM
[2018-01-24] MEDS ORDERED: PRED-301 PO (14:06)
[2018-01-24 14:17] LABS: PTT PATIENT 31.4 SECONDS (21.0-31.0)
[2018-01-24 14:21] LABS: HEMATOCRIT 38.3 % (42-52); HEMOGLOBIN 13.1 g/dL (14.0-18.0); MEAN CORPUSCULAR HEMOGLOBIN 29.8 pg (25-34); MEAN CORPUSCULAR HGB CONC 34.2 g/dl (32-36); MEAN PLATELET VOLUME 9.7 fL (7.4-10.4); PLATELET COUNT 115 K/uL (130-400); RED CELL DISTRIBUTION WIDTH CV 14.6 % (11.5-14.5); RED CELL DISTRIBUTION WIDTH SD 46.8 fL (36.4-46.3)
[2018-01-24 14:22] LABS: ALBUMIN 3.1 gm/dl (3.4-5.0); ALKALINE PHOSPHATASE 51 U/L (45-117); ALT/SGPT 37 U/L (12-78); AST/SGOT 23 U/L (15-37); BLOOD UREA NITROGEN 14 mg/dl (7-18); CALCIUM 8.3 mg/dl (8.5-10.1); CARBON DIOXIDE 25 mmol/L (21-32); CREATININE 0.96 mg/dl (0.60-1.40); GLUCOSE 146 mg/dl (70-99); LIPASE 152 U/L (73-393); POTASSIUM 3.8 mmol/L (3.5-5.1); SODIUM 140 mmol/L (136-145); TOTAL PROTEIN 6.3 gm/dl (6.4-8.2)
--- NOTE | 2018-01-24 14:49 | EMERGENCY ROOM VISIT NOTE ---
History Report prepared by Simi: Meghan Mane Under the Supervision of: Dr. Gregory Martines M.D. First contact with patient: 13:36 Chief Complaint: CHEST PAIN Stated Complaint: CAN'T BREATHE, CHEST PAINS Nursing Triage Summary: PT HERE WITH CHEST PAINS AT HOME TODAY. PT HAS HX OF DEMENTIA, STATES HAS NO CHEST PAIN AT THIS TIME, STATES HE DOES NOT RECALL PAIN BECAUSE OF DEMENTIA. PT IS SHORT OF BREATH. STATES JUST FEELS WEAK AND "CRAPPY" History of Present Illness The patient is a 77 year old white male with a past medical history of asthma, COPD, CAD, HTN, HLD, PEs, dementia who presents to the ED with a cc of SOB beginning three days ago. Positive chest pain, swelling in his legs, cough, vomiting. Negative tobacco use. The patient is on Lasix and Eliquis. The patient was discharged from the hospital on January 07 or an asthma exacerbation. Source of History: spouse/significant other Onset: three days ago Position: other (generalized) Quality: other (SOB) Modifying Factors (Relieving): rest Associated Symptoms: + cough, + chest pain, + SOB, + vomiting Review of Systems See HPI for pertinent positives and negatives. A total of ten systems were reviewed and were otherwise negative. Past Medical & Surgical Medical Problems: (1) Angina (2) Asthma (3) Asthma exacerbation (4) Benign hypertension (5) Bilateral hip replacement (6) Bronchitis (7) CAD (coronary artery disease) (8) Chest pain (9) COPD (chronic obstructive pulmonary disease) (10) COPD exacerbation (11) Diverticulitis (12) Diverticulosis (13) GERD (gastroesophageal reflux disease) (14) Headache (15) Heart disease (16) Hyperlipidemia (17) Hypertension (18) Neutropenic fever (19) Pneumonia (20) Pulmonary emboli (21) Splenomegaly (22) Stomach problems (23) Unstable angina Surgical Problems: (1) H/O prostatectomy (2) History of bilateral hip replacements Family History FH: diabetes mellitus FH: gallbladder disease FH: heart disease Hypertension Kidney disease Kidney stones Myocardial infarction Stroke Social History Smoking Status: Never Smoker Alcohol Use: none Drug Use: none Marital Status: Housing Status: lives with family Occupation Status: retired Current/Historical Medications Scheduled Apixaban (Eliquis), 5 MG PO BID Budesonide/Formoterol Fumarate (Symbicort 160/4.5 Inhaler), 1 PUFF PO BID Furosemide (Lasix), 40 MG PO DAILY Guaifenesin Ext Rel (Mucinex Ext Rel), 1,200 MG PO Q12H Ipratropium-Albuterol (Combivent Respimat), 1 PUFFS INH BID Isosorbide Mononitrate Ext Rel (Imdur Ext Rel), 60 MG PO QAM Metformin HCl (Metformin HCl ER), 500 MG PO QDD Metoprolol Tartrate (Lopressor) (Lopressor), 25 MG PO BID Montelukast Sodium (Singulair), 10 MG PO DAILY Prednisone (Prednisone), 5 MG PO DAILY Ranitidine Hcl (Zantac), 300 MG PO BID Tiotropium [place] (Spiriva Handihaler), 1 CAP INH DAILY Scheduled PRN Benzonatate (Benzonatate), 100 MG PO TID PRN for Cough Ipratropium-Albuterol (Duoneb), 1 TREATMENT INH QID PRN for SOB/Wheezing Nitroglycerin (Nitrostat), 0.4 MG UT UD PRN for Chest Pain Allergies Coded Allergies: Ibuprofen (Verified Allergy, Mild, ULCERS, 01/24/18) Physical Exam Vital Signs Date Time Temp Pulse Resp B/P (MAP) Pulse Ox O2 Delivery O2 Flow Rate FiO2 01/24/18 14:53 85 24 138/79 92 Room Air 01/24/18 13:56 84 12 116/78 97 Room Air 01/24/18 13:49 94 Room Air 01/24/18 13:40 81 01/24/18 12:17 36.4 79 16 156/89 96 Room Air Physical Exam GENERAL: Awake, alert, well-appearing, obese, NAD HENT: Normocephalic, atraumatic. EYES: Normal conjunctiva. Sclera non-icteric. NECK: Supple. No nuchal rigidity. FROM. RESPIRATORY: CTAB, no rhonchi, wheezing, crackles CARDIAC: RRR, no MRG ABDOMEN: Soft, NTND, BS+ MSK: No chest wall TTP, no LE edema NEURO: GCS 15, CN 2-12 intact, moves all 4s on command SKIN: No rash or jaundice noted. Medical Decision & Procedures ER Provider Diagnostic Interpretation: Radiology results as stated below per my review and radiologist interpretation: CHEST ONE VIEW PORTABLE FINDINGS: The bones soft tissues and hemidiaphragms are normal. The cardiomediastinal silhouette is normal. The lungs are clear. The pulmonary vasculature is normal. IMPRESSION: Negative chest. The above report was generated using voice recognition software. It may contain grammatical, syntax or spelling errors. Electronically signed by: Luis Daniel Almeida M.D. Laboratory Results 01/24/18 13:35 Red Blood Count 4.40, Mean Corpuscular Volume 87.0, Mean Corpuscular Hemoglobin 29.8, Mean Corpuscular Hemoglobin Concent 34.2, Mean Platelet Volume 9.7 01/24/18 13:35 Test 01/24/18 13:35 White Blood Count 1.70 K/uL (4.8-10.8) Red Blood Count 4.40 M/uL (4.7-6.1) Hemoglobin 13.1 g/dL (14.0-18.0) Hematocrit 38.3 % (42-52) Mean Corpuscular Volume 87.0 fL (80-100) Mean Corpuscular Hemoglobin 29.8 pg (25-34) Mean Corpuscular Hemoglobin Concent 34.2 g/dl (32-36) Platelet Count 115 K/uL (130-400) Mean Platelet Volume 9.7 fL (7.4-10.4) RDW Standard Deviation 46.8 fL (36.4-46.3) RDW Coefficient of Variation 14.6 % (11.5-14.5) Neutrophils % (Manual) 0.9 % Lymphocytes % (Manual) 32.5 % Variant Lymphocytes % (manual) 49.9 % Monocytes % (Manual) 11.4 % Eosinophils % (Manual) 4.4 % Basophils % (Manual) 0.9 % (0-2) Neutrophils # (Manual) 0.02 K/uL (1.4-6.5) Total Absolute Neutrophils 0.02 K/uL (1.4-6.5) Lymphocytes # (Manual) 0.55 K/uL (1.2-3.4) Absolute Variant Lymphocytes 0.85 K/uL Total Absolute Lymphocytes 1.40 K/uL (1.2-3.4) Monocytes # (Manual) 0.19 K/uL (0.11-0.59) Eosinophils # (Manual) 0.07 K/uL (0-0.5) Basophils # (Manual) 0.02 K/uL (0-0.2) Prothrombin Time 10.4 SECONDS (9.0-12.0) Prothromb Time International Ratio 1.0 (0.9-1.1) Activated Partial Thromboplast Time 31.4 SECONDS (21.0-31.0) Partial Thromboplastin Ratio 1.2 Anion Gap 7.0 mmol/L (3-11) Est Creatinine Clear Calc Drug Dose 62.9 ml/min Estimated GFR () 87.4 Estimated GFR (Non- 75.4 BUN/Creatinine Ratio 14.0 (10-20) Calcium Level 8.3 mg/dl (8.5-10.1) Total Bilirubin 0.6 mg/dl (0.2-1) Direct Bilirubin 0.1 mg/dl (0-0.2) Aspartate Amino Transf (AST/SGOT) 23 U/L (15-37) Alanine Aminotransferase (ALT/SGPT) 37 U/L (12-78) Alkaline Phosphatase 51 U/L (45-117) Troponin I < 0.015 ng/ml (0-0.045) Pro-B-Type Natriuretic Peptide 164 pg/ml (0-1800) Total Protein 6.3 gm/dl (6.4-8.2) Albumin 3.1 gm/dl (3.4-5.0) Lipase 152 U/L (73-393) Chemistry Specimen Hemolysis Laboratory results reviewed by me Medications Administered Medications (Trade) Dose Ordered Sig/Guille Route Start Time Stop Time Status Last Admin Dose Admin Albuterol/ Ipratropium (Duoneb) 3 ml ONE STAT INH 01/24/18 13:44 01/24/18 13:46 DC 01/24/18 13:52 3 ML ECG Per My Interpretation Indication: SOB/dyspnea Rate (beats per minute): 84 Rhythm: normal sinus Findings: left axis deviation, other (normal intervals, T-wave flattening in lead 3, no other STS changes or TWI) Comparison ECG Date: 01/03/18 Change: no significant change ED Course 1339: The patient was evaluated in room A2. A complete history and physical exam was performed. 1458: I updated the patient and his on his test results. His chest exam is clear. 1512: I reevaluated the patient. Discussed results and discharge instructions: He verbalized understanding and agreement. The patient is ready for discharge. Medical Decision The patient is a 77 year old white male with a past medical history of asthma, COPD, CAD, HTN, HLD, PEs, dementia who presents to the ED with a cc of SOB beginning three days ago. Nursing notes reviewed. Ancillary studies and prior records reviewed. Differential diagnosis: Etiologies such as infections, reactive airway disease, pneumonia, pneumothorax , COPD, CHF, cardiac ischemia, pulmonary embolism, musculoskeletal, gastrointestinal, as well as others were entertained. Patient was seen and evaluated the bedside. Patient does have a prior history of some COPD and what was described as small blood clots in the lungs for which she is taking blood thinning medications. Patient does have a history of dementia so his history is somewhat unreliable. The at bedside states that the patient was having some difficulty with breathing some mild shortness of breath with some associated chest pain. Shortness of breath have been ongoing several days with the chest pain just today. On exam the patient denies any acute symptoms. Patient does have some mild end expiratory wheezing but is not tachypneic, hypoxic. Patient did have blood work completed, EKG, troponin, BNP, chest x-ray. Patient 's chest x-ray was negative. Patient's blood work did show some leukopenia which is new compared to priors. I discussed with the pharmacist whether or not he is a recent prednisone could cause some leukopenia instead of leukocytosis. There is not much evidence to show that the prednisone causes. Patient does have a history of prostate CA status post treatment. Patient's EKG is unchanged from prior. Troponin is not detectable. Patient's BNP is not elevated. Less likely ACS. Less likely CHF exacerbation. Patient did receive a DuoNeb also. Patient was feeling improved and again was otherwise a symptom that. The patient's repeat chest exam showed that he had resolution in his bronchospasm. He does have his inhalers and nebulizers at home. Patient was instructed to continue as prescribed. Patient was deemed suitable for outpatient follow-up and treatment at this time. Patient was given strict follow-up, discharge, and return precautions. All questions were answered. Patient was deemed suitable for outpatient follow-up at this time. Patient agreed with the plan of care and was safely discharged home. Medication Reconcilliation Current Medication List: was personally reviewed by me Blood Pressure Screening Patient's blood pressure: Normal blood pressure Impression Primary Impression: Bronchospasm Additional Impressions: SOB (shortness of breath) Chest pain Leukopenia Scribe Attestation The scribe's documentation has been prepared under my direction and personally reviewed by me in its entirety. I confirm that the note above accurately reflects all work, treatment, procedures, and medical decision making performed by me. Departure Information Dispostion Home / Self-Care Referrals Brad Mason III, CRNP (PCP) Forms Call Back Authorization, HOME CARE DOCUMENTATION FORM, IMPORTANT VISIT INFORMATION Patient Instructions Asthma - [facility], My [facility] Additional Instructions Please return to the emergency department if you have worsening or recurrent symptoms not amenable to at-home treatment. Please call for a follow-up appointment with her primary care physician. Please take your medications as prescribed. If you have other concerns and/or complaints please feel free to also call your primary care physician's office or return the ED for further evaluation, management, and treatment. Take your medications as prescribed. Please continue to use your nebulizers as well as other treatments for your asthma as prescribed. When you do follow-up with your primary care provider please discuss repeating blood work to check for your low white blood cell count. You have been examined and treated today on an emergency basis only. This is not a substitute for, or an effort to provide, complete comprehensive medical care. It is impossible to recognize and treat all injuries or illnesses in a single emergency department visit. It is therefore important that you follow up closely with [facility], your PCP, and/or your specialist(s). Call as soon as possible for an appointment. Thank you for your time and consideration. I look forward to speaking with you again soon. Please don't hesitate to call us if you have any questions. Problem Qualifiers Additional Impressions: Chest pain Chest pain type: unspecified Qualified Codes: R07.9 - Chest pain, unspecified Leukopenia Leukopenia type: unspecified Qualified Codes: D72.819 - Decreased white blood cell count, unspecified
[2018-01-24 14:53] VITALS: BP 138/79; PULSE 85; O2SAT 92
== END 2018-01-24 15:20 | disposition home or self-care (01) ==
LOC: C.EDB 12:07 → C.EDA 15:20
DX: J98.01 Acute bronchospasm (principal); D72.819 Decreased white blood cell count, unspecified; J44.9 Chronic obstructive pulmonary disease, unspecified; I25.10 Atherosclerotic heart disease of native coronary artery without angina pectoris; I10 Essential (primary) hypertension; E78.5 Hyperlipidemia, unspecified; Z86.711 Personal history of pulmonary embolism; F03.90 Unspecified dementia, unspecified severity, without behavioral disturbance, psychotic disturbance, mood disturbance, and anxiety; Z79.899 Other long term (current) drug therapy; Z79.84 Long term (current) use of oral hypoglycemic drugs; Z79.52 Long term (current) use of systemic steroids; Z79.01 Long term (current) use of anticoagulants; Z88.6 Allergy status to analgesic agent; Z83.3 Family history of diabetes mellitus; Z83.79 Family history of other diseases of the digestive system; Z82.49 Family history of ischemic heart disease and other diseases of the circulatory system; Z84.1 Family history of disorders of kidney and ureter; Z82.3 Family history of stroke

== ENCOUNTER 2018-01-25 21:36 | Emergency (ER) | payer BC ==
[~2018-01-25] VITALS: Ht 154.9 cm; Wt 97.0 kg
[~2018-01-25 21:36] MED LIST changes: +PRED-301 PO
[2018-01-25 21:44] VITALS: TEMP 37.7; Ht 154.9 cm; Wt 97.0 kg
[2018-01-25] MEDS ORDERED: ACETAMINOPHEN 325 MG TAB PO STA (23:25)
[2018-01-25] MEDS ORDERED: ALBUT/IPRATROP 3MG/0.5MG NEB 3 ML VIAL INH STA (23:35)
--- NOTE | 2018-01-25 23:36 | EMERGENCY ROOM VISIT NOTE ---
History Report prepared by Simi: Betsy Card Under the Supervision of: Dr. Jasmine Jacinto D.O. First contact with patient: 23:16 Chief Complaint: SHORTNESS OF BREATH Stated Complaint: SOB, COUGHING, POSSIBLE NEUTROPENIA Nursing Triage Summary: pt c/o sob, cough, fever, hx of neutrapenia History of Present Illness The patient is a 77 year old male who presents to the Emergency Room with complaints of persistent general shortness of breath for four days. Per , the patient's home health nurse urged the patient to come to the ED and he was seen yesterday. He was diagnosed with neutropenia. She notes the patient developed a fever of 99.8 Fahrenheit at dinner time tonight. Per , the patient complained of a sore throat this afternoon. Per , the patient's current breathing appears better than the last two days. She notes his breathing worsens with exertion. The patient denies any sore throat, runny nose , stuffy nose, chest pain. He states his breathing feels okay. He denies any dizziness, lightheadedness, headaches, leg swelling, diarrhea, urinary symptoms , or abdominal pain. Per , the patient has COPD and asthma. He uses inhalers. She states the patient uses at home oxygen as needed throughout the day, though uses it with a BiPAP at night. Per , the patient has a history of thrombocytopenia. She is unsure how low he normally runs. He had a series of infusions. He has not been given anything for the fever. The patient has a history of blood blots. He has not had his evening medications, though he did have his morning medications. Source of History: patient, spouse/significant other Onset: four days ago Position: other (general) Quality: other (shortness of breath) Timing: other (persistent) Modifying Factors (Worsening): exertion Associated Symptoms: + fevers, + sorethroat, No headache, No chest pain, No abdominal pain, No diarrhea, No urinary symptoms Note: He denies any dizziness, lightheadedness, runny nose, stuffy nose, or leg swelling. Review of Systems See HPI for pertinent positives & negatives. A total of 10 systems reviewed and were otherwise negative. Past Medical & Surgical Medical Problems: (1) Angina (2) Asthma (3) Asthma exacerbation (4) Benign hypertension (5) Bilateral hip replacement (6) Bronchitis (7) CAD (coronary artery disease) (8) Chest pain (9) COPD (chronic obstructive pulmonary disease) (10) COPD exacerbation (11) Diverticulitis (12) Diverticulosis (13) GERD (gastroesophageal reflux disease) (14) Headache (15) Heart disease (16) Hyperlipidemia (17) Hypertension (18) Neutropenic fever (19) Pneumonia (20) Pulmonary emboli (21) Splenomegaly (22) Stomach problems (23) Unstable angina Surgical Problems: (1) H/O prostatectomy (2) History of bilateral hip replacements Family History FH: diabetes mellitus FH: gallbladder disease FH: heart disease Hypertension Kidney disease Kidney stones Myocardial infarction Stroke Social History Smoking Status: Never Smoker Alcohol Use: none Drug Use: none Marital Status: Housing Status: lives with family Occupation Status: retired Current/Historical Medications Scheduled Apixaban (Eliquis), 5 MG PO BID Budesonide/Formoterol Fumarate (Symbicort 160/4.5 Inhaler), 1 PUFF PO BID Furosemide (Lasix), 40 MG PO DAILY Guaifenesin Ext Rel (Mucinex Ext Rel), 1,200 MG PO Q12H Ipratropium-Albuterol (Combivent Respimat), 1 PUFFS INH BID Isosorbide Mononitrate Ext Rel (Imdur Ext Rel), 60 MG PO QAM Metformin HCl (Metformin HCl ER), 500 MG PO QDD Metoprolol Tartrate (Lopressor) (Lopressor), 25 MG PO BID Montelukast Sodium (Singulair), 10 MG PO DAILY Prednisone (Prednisone), 5 MG PO DAILY Ranitidine Hcl (Zantac), 300 MG PO BID Tiotropium Victoria (Spiriva Handihaler), 1 CAP INH DAILY Scheduled PRN Benzonatate (Benzonatate), 100 MG PO TID PRN for Cough Ipratropium-Albuterol (Duoneb), 1 TREATMENT INH QID PRN for SOB/Wheezing Nitroglycerin (Nitrostat), 0.4 MG UT UD PRN for Chest Pain Allergies Coded Allergies: Ibuprofen (Verified Allergy, Mild, ULCERS, 01/24/18) Physical Exam Vital Signs Date Time Temp Pulse Resp B/P (MAP) Pulse Ox O2 Delivery O2 Flow Rate FiO2 01/26/18 04:14 83 16 137/74 98 Room Air 01/26/18 03:38 87 18 135/76 96 Room Air 01/26/18 02:13 93 01/26/18 02:10 92 20 140/79 94 Room Air 01/26/18 00:36 97 20 136/71 94 Room Air 01/25/18 23:36 97 20 94 Room Air 01/25/18 22:36 96 20 95 Room Air 01/25/18 22:11 108 01/25/18 21:44 95 Room Air 01/25/18 21:44 37.7 107 18 141/82 96 Room Air Physical Exam GENERAL: alert, well appearing, well nourished, no distress, non-toxic. Poor historian, likely due to history of dementia. provided majority of history. EYE EXAM: normal conjunctiva, PERRL and EOM's grossly intact OROPHARYNX: no exudate, no erythema, lips, buccal mucosa, and tongue normal and mucous membranes are moist. Poor dentition. NECK: supple, no nuchal rigidity, no adenopathy, non-tender LUNGS: Clear to auscultation. No wheezes, rhonchi, or rales. Normal chest wall mechanics HEART: no murmurs, S1 normal and S2 normal ABDOMEN: abdomen soft, non-tender, normo-active bowel sounds, no masses, no rebound or guarding. BACK: Back is symmetrical on inspection and there is no deformity, no midline tenderness, no CVA tenderness. SKIN: no rashes and no bruising UPPER EXTREMITIES: upper extremities are grossly normal. Full range of motion, normal pulses. LOWER EXTREMITIES: 1+ bilateral LE edema. Full range of motion, normal pulses. NEURO EXAM: Normal sensorium, cranial nerves II-XII grossly intact, normal speech, no gross weakness of arms, no gross weakness of legs. Medical Decision & Procedures ER Provider Diagnostic Interpretation: Radiology results have been interpreted by the radiologist and reviewed by me. CT CHEST With Contrast: No central or large pulmonary embolus identified. Evaluation of the distal pulmonary arterial branches especially at the lung bases is limited by motion artifact. Mild atherosclerotic changes of aorta without aortic dissection. Ectasia of the ascending aorta, measuring 4.4 cm. No acute pulmonary parenchymal abnormality identified. Dependent atelectasis bilaterally. Underdistended gallbladder. Small hiatal hernia. Atrophy of the pancreas without acute inflammation or mass. Diverticulosis without visualized diverticulitis. Mild cardiomegaly. Small amount of pericardial fluid. Coronary artery calcifications. Prominent degenerative changes of the shoulders. Radiologist: Kermit Heath MD Study ready at 02:14 and initial results transmitted at 02:32 Laboratory Results 01/25/18 22:30 Red Blood Count 4.22, Mean Corpuscular Volume 87.0, Mean Corpuscular Hemoglobin 29.6, Mean Corpuscular Hemoglobin Concent 34.1, Mean Platelet Volume 9.5 01/25/18 22:30 Test 01/25/18 22:30 01/25/18 22:35 01/25/18 23:45 01/26/18 00:26 White Blood Count 2.56 K/uL (4.8-10.8) Red Blood Count 4.22 M/uL (4.7-6.1) Hemoglobin 12.5 g/dL (14.0-18.0) Hematocrit 36.7 % (42-52) Mean Corpuscular Volume 87.0 fL (80-100) Mean Corpuscular Hemoglobin 29.6 pg (25-34) Mean Corpuscular Hemoglobin Concent 34.1 g/dl (32-36) Platelet Count 125 K/uL (130-400) Mean Platelet Volume 9.5 fL (7.4-10.4) RDW Standard Deviation 45.7 fL (36.4-46.3) RDW Coefficient of Variation 14.4 % (11.5-14.5) Neutrophils % (Manual) 0.9 % Lymphocytes % (Manual) 31.9 % Variant Lymphocytes % (manual) 45.0 % Monocytes % (Manual) 18.6 % Eosinophils % (Manual) 2.7 % Myelocytes % 0.9 % Neutrophils # (Manual) 0.02 K/uL (1.4-6.5) Total Absolute Neutrophils 0.02 K/uL (1.4-6.5) Lymphocytes # (Manual) 0.82 K/uL (1.2-3.4) Absolute Variant Lymphocytes 1.15 K/uL Total Absolute Lymphocytes 1.97 K/uL (1.2-3.4) Monocytes # (Manual) 0.48 K/uL (0.11-0.59) Eosinophils # (Manual) 0.07 K/uL (0-0.5) Myelocytes # 0.02 K/uL (0-0) Red Blood Cell Morphology Unremarkable Prothrombin Time 10.4 SECONDS (9.0-12.0) Prothromb Time International Ratio 1.0 (0.9-1.1) Anion Gap 8.0 mmol/L (3-11) Est Creatinine Clear Calc Drug Dose 49.9 ml/min Estimated GFR () 66.1 Estimated GFR (Non- 57.0 BUN/Creatinine Ratio 12.5 (10-20) Calcium Level 8.5 mg/dl (8.5-10.1) Magnesium Level 1.7 mg/dl (1.8-2.4) Total Bilirubin 0.5 mg/dl (0.2-1) Aspartate Amino Transf (AST/SGOT) 20 U/L (15-37) Alanine Aminotransferase (ALT/SGPT) 39 U/L (12-78) Alkaline Phosphatase 54 U/L (45-117) Troponin I < 0.015 ng/ml (0-0.045) Pro-B-Type Natriuretic Peptide 198 pg/ml (0-1800) Total Protein 6.3 gm/dl (6.4-8.2) Albumin 2.9 gm/dl (3.4-5.0) Globulin 3.4 gm/dl (2.5-4.0) Albumin/Globulin Ratio 0.9 (0.9-2) Influenza Type A Antigen Neg for Influ A (NEG) Influenza Type B Antigen Neg for Influ B (NEG) Bedside Lactic Acid Venous 0.78 mmol/L (0.90-1.70) Arterial Blood pH 7.48 (7.35-7.45) Arterial Blood Partial Pressure CO2 38 mmHg (35-46) Arterial Blood Partial Pressure O2 70 mm/Hg (80-95) Arterial Blood HCO3 28 mmol/L (19-24) Arterial Blood Oxygen Saturation 94.3 % (90-95) Arterial Blood Base Excess 4.2 mEq/L (-9-1.8) Arterial Blood Gas Delivery ROOM AIR Raj Test POS (POS) Laboratory results per my review. Medications Administered Medications (Trade) Dose Ordered Sig/Guille Route Start Time Stop Time Status Last Admin Dose Admin Acetaminophen (Tylenol Tab) 650 mg NOW STAT PO 01/25/18 23:25 01/25/18 23:28 DC 01/25/18 23:43 650 MG Albuterol/ Ipratropium (Duoneb) 3 ml NOW STAT INH 01/25/18 23:35 01/25/18 23:36 DC 01/26/18 00:41 3 ML Sodium Chloride 500 ml @ 999 mls/hr Q31M STAT IV 01/26/18 01:17 01/26/18 01:47 DC 01/26/18 01:17 999 MLS/HR ECG Per My Interpretation Indication: SOB/dyspnea Rate (beats per minute): 105 Rhythm: sinus tachycardia Findings: Q waves (in L3 and aVF), no acute ischemic change, left axis deviation, other (Low voltage throughout. Normal intervals.) ED Course 2319: The patient was evaluated in room C9. A complete history and physical exam was performed. 2325: Ordered Tylenol 650 mg PO 2335: Ordered DuoNeb 3 ml INH 0117: Ordered Sodium Chloride 500 ml @ 999 mls/hr IV 0320: I reassessed the patient at this time. He feels better. He would like to go home. He has home oxygen. I discussed the results and treatment plan with the patient and his . I answered all pertaining questions that he had. He expressed understanding and verbalized agreement. The patient will be discharged home. Medical Decision Differential diagnoses includes but is not limited to pneumonia, bronchitis, COPD/Asthma exacerbation, pneumothorax, pulmonary embolism, congestive heart failure, acute coronary syndrome. Patient well-appearing here throughout. Patient afebrile here. Patient's leukopenia is improved compared to prior. Blood cultures drawn as a precaution. No evidence of acute volume overload or congestive heart failure, no evidence of ACS. Given possible sick contact with great-grandson, possible patient with viral syndrome exacerbating his underlying COPD. Patient able to ambulate here in the usual fashion without any worsening shortness of breath. Patient is typically short of breath with any sort of exertion according to the . Patient does wear home O2 as well as nighttime BiPAP. No other new consolidation noted on chest x-ray. Patient checked on multiple times and observed over the course of several hours out of precaution. Discussed with patient and concern for symptoms, and risk given patient's known comorbidities. Using shared medical decision making, patient would like to go home, and willing to take him home. Discussed at length with patient's use of his home breathing treatments and oxygen, close follow-up with family doctor as well as hematology regarding the leukopenia and thrombocytopenia. Patient with prior history of thrombocytopenia seen by hematology which did improve in recent months but is mildly low again tonight. No prior history of significant leukopenia. I discussed with the patient and his that this may be reactive due to infection, however given the prior thrombocytopenia, this may have preceded any potential infectious exposure and could predispose him to an infection. Patient not known to otherwise be immunocompromised. Patient not currently taking daily prednisone, but did recently finish a taper. Discussed with her blood cultures were drawn will take 48 hours to result. I do not suspect PE given patient's chronic use of anticoagulation. And verifies he has not been missing any dosages. Encouraged her to give him his evening medications when they get home. Discussed symptoms to watch and return for. Patient with mild dementia, however patient's I feel is reliable to follow up or return the pt for any worsening symptoms. Medication Reconcilliation Current Medication List: was personally reviewed by me Blood Pressure Screening Patient's blood pressure: Elevated blood pressure Blood pressure disposition: Referred to PCP Impression Primary Impression: COPD (chronic obstructive pulmonary disease) Additional Impressions: Leukopenia Thrombocytopenia Obesity Chronic respiratory failure with hypoxia, on home O2 therapy Scribe Attestation The scribe's documentation has been prepared under my direction and personally reviewed by me in its entirety. I confirm that the note above accurately reflects all work, treatment, procedures, and medical decision making performed by me. Departure Information Dispostion Home / Self-Care Referrals Brad Mason III, CRNP (PCP) Forms HOME CARE DOCUMENTATION FORM, IMPORTANT VISIT INFORMATION Patient Instructions COPD - [facility], My [facility], Neutropenia Additional Instructions Please have your blood counts rechecked by your mobile sales expert the beginning of the week. Please continue to monitor for fevers or chills. If your temperature is greater than 100.4, please return the emergency room. Please continue your regular medications as prescribed, and wear your oxygen and CPAP as needed. Please continue using your breathing treatments as previously directed. Please avoid anything that could worsen your breathing or exacerbate your COPD including strong chemical fumes and smoke. If you have any worsening trouble breathing, noticed a change in your cough or sputum, develop a fever, have chest pain, increased leg swelling, develop vomiting or diarrhea, or you have any other new concerns, please return the emergency room. Problem Qualifiers Primary Impression: COPD (chronic obstructive pulmonary disease) COPD type: unspecified COPD Qualified Codes: J44.9 - Chronic obstructive pulmonary disease, unspecified Additional Impressions: Leukopenia Leukopenia type: unspecified Qualified Codes: D72.819 - Decreased white blood cell count, unspecified Obesity Obesity type: unspecified obesity type Obesity classification: unspecified obesity classification Serious obesity comorbidity presence: unspecified whether serious comorbidity present Qualified Codes: E66.9 - Obesity, unspecified
[2018-01-25 23:51] LABS: ALBUMIN 2.9 gm/dl (3.4-5.0); ALT/SGPT 39 U/L (12-78); AST/SGOT 20 U/L (15-37); BLOOD UREA NITROGEN 15 mg/dl (7-18); CALCIUM 8.5 mg/dl (8.5-10.1); CARBON DIOXIDE 27 mmol/L (21-32); CREATININE 1.21 mg/dl (0.60-1.40); GLUCOSE 167 mg/dl (70-99); POTASSIUM 3.4 mmol/L (3.5-5.1); SODIUM 140 mmol/L (136-145)
[2018-01-25 23:56] LABS: ALKALINE PHOSPHATASE 54 U/L (45-117); TOTAL PROTEIN 6.3 gm/dl (6.4-8.2)
[2018-01-26 00:21] LABS: INFLUENZA B ANTIGEN Neg for Influ B (NEG)
[2018-01-26 00:51] LABS: HEMATOCRIT 36.7 % (42-52); HEMOGLOBIN 12.5 g/dL (14.0-18.0); MEAN CORPUSCULAR HEMOGLOBIN 29.6 pg (25-34); MEAN CORPUSCULAR HGB CONC 34.1 g/dl (32-36); MEAN PLATELET VOLUME 9.5 fL (7.4-10.4); PLATELET COUNT 125 K/uL (130-400); RED CELL DISTRIBUTION WIDTH CV 14.4 % (11.5-14.5); RED CELL DISTRIBUTION WIDTH SD 45.7 fL (36.4-46.3); WHITE BLOOD COUNT 2.56 K/uL (4.8-10.8)
[2018-01-26] MEDS ORDERED: SODIUM CHLORIDE 0.9% 500ML 500 ML IV STA (01:17)
[2018-01-26] MEDS ORDERED: OPTIRAY 320 IV PRN (01:45)
[2018-01-26 04:14] VITALS: BP 137/74; PULSE 83; O2SAT 98
--- NOTE | 2018-01-26 07:24 | DIAGNOSTIC IMAGING REPORT ---
CT ANGIOGRAM OF THE CHEST CLINICAL HISTORY: Cough and fever. Dyspnea. COMPARISON STUDY: Chest x-ray dated 01/24/2018. Chest CT scans dated 05/14/2017 and 05/19/2009. TECHNIQUE: Following the IV administration of 93 cc of Optiray 320, CT angiogram of the chest was performed from the upper abdomen to the thoracic inlet utilizing the pulmonary embolus protocol. Images are reviewed in the axial, sagittal, and coronal planes. 3-D MIPS images are created and assessed. IV contrast was administered without complication. A dose lowering technique was utilized adhering to the principles of ALARA. The examination is degraded by motion artifact. CT DOSE: 641.84 mGy.cm FINDINGS: Thyroid: Imaged portions of the thyroid gland are normal in size and attenuation. Thoracic aorta: There is atherosclerotic calcification of the thoracic aorta. There is mild ectasia of the ascending thoracic aorta which measures up to 4.0 cm. The remainder of the thoracic aorta is normal in caliber and demonstrates standard 3-vessel arch anatomy. No dissection is seen. Pulmonary vasculature: The pulmonary trunk is normal in caliber. There are no filling defects identified in main, lobar, or proximal segmental pulmonary branches to suggest pulmonary embolus. Evaluation of the peripheral branches is degraded by motion artifact. Heart: The heart is enlarged and there is trace pericardial fluid. The coronary arteries are densely calcified. Lungs and pleural spaces: Evaluation of lung parenchyma is degraded by motion artifact. There is mild diffuse subpleural reticulation. No airspace consolidation is seen typical for pneumonia and there is no pleural effusion. Scar/atelectasis is present the lung bases. Scattered calcified granulomas are observed. The trachea and central airways are clear. Mediastinum: There is no mediastinal lymphadenopathy. Rita: Clear. Axillae: There is no axillary lymphadenopathy. Upper abdomen: There is a small hiatal hernia. Diverticulosis is noted in the partially visualized colon. Skeletal structures: The skeletal structures are osteopenic. Advanced degenerative change is noted in the shoulders and thoracic spine. No lytic or blastic bony lesions are seen. IMPRESSION: 1. Motion compromised examination. 2. There is no evidence of central pulmonary embolus in the main, lobar, or proximal segmental pulmonary arteries. 3. There is no airspace consolidation typical for pneumonia or pleural effusion. 4. Cardiomegaly. Electronically signed by: Ananda Sweeney M.D. 01/26/2018 7:23 AM Dictated Date/Time: 01/26/2018 7:16 AM
== END 2018-01-26 04:14 | disposition home or self-care (01) ==
LOC: C.EDB 21:38 → C.EDC 01-26 04:14
DX: J44.9 Chronic obstructive pulmonary disease, unspecified (principal); D72.819 Decreased white blood cell count, unspecified; D69.6 Thrombocytopenia, unspecified; E66.9 Obesity, unspecified; J96.11 Chronic respiratory failure with hypoxia; J45.909 Unspecified asthma, uncomplicated; I25.10 Atherosclerotic heart disease of native coronary artery without angina pectoris; I10 Essential (primary) hypertension; K21.9 Gastro-esophageal reflux disease without esophagitis; Z86.711 Personal history of pulmonary embolism; Z96.643 Presence of artificial hip joint, bilateral; Z90.79 Acquired absence of other genital organ(s); Z88.6 Allergy status to analgesic agent; Z83.3 Family history of diabetes mellitus; Z82.49 Family history of ischemic heart disease and other diseases of the circulatory system; Z84.1 Family history of disorders of kidney and ureter; Z82.3 Family history of stroke; Z79.01 Long term (current) use of anticoagulants; Z79.52 Long term (current) use of systemic steroids; Z79.899 Other long term (current) drug therapy

== ENCOUNTER 2018-02-18 19:30 | Emergency (ER) | payer BC ==
[~2018-02-18] VITALS: Ht 152.4 cm; Wt 94.9 kg
[~2018-02-18 19:30] MED LIST changes: -PRED10TA PO
[2018-02-18 19:32] VITALS: TEMP 36.7; Ht 152.4 cm; Wt 94.9 kg
[2018-02-18 19:57] VITALS: O2SAT 97
[2018-02-18] MEDS ORDERED: DEXAMETHASONE **PF** INJ 10 MG/ML VIAL IV ONE (20:00)
[2018-02-18] MEDS ORDERED: ALBUT/IPRATROP 3MG/0.5MG NEB 3 ML VIAL INH ONE (20:00)
[2018-02-18] MEDS ORDERED: BENZ100C84 PO (20:08)
--- NOTE | 2018-02-18 20:09 | EMERGENCY ROOM VISIT NOTE ---
History Report prepared by Simi: Cody Wells Under the Supervision of: Dr. Chad Oneill M.D. First contact with patient: 19:44 Chief Complaint: SHORTNESS OF BREATH Stated Complaint: SOB, CHEST PAINS, COUGHING History of Present Illness The patient is a 77 year old male who presents to the Emergency Room with complaints of worsening shortness of breath. The patient has a history of COPD, and has been experiencing this shortness of breath for the past couple of months. There has been an acute worsening of the symptoms over the past week. The patient's at bedside notes that he has had a productive cough as well. The patient does wear oxygen at night at baseline and as needed, but recently has been wearing it all day. He also uses inhalers at home, as well as 5 mg of Prednisone daily. He is on Lasix for some swelling in his legs and feet, but has not been diagnosed with heart failure. He had a echocardiogram last month. He is on Eliquis for very small pulmonary emboli. Source of History: patient, spouse/significant other Onset: 1 week Position: chest Quality: other (SOB) Timing: worsening Associated Symptoms: + cough Review of Systems See HPI for pertinent positives and negatives. A total of ten systems were reviewed and were otherwise negative. Past Medical & Surgical Medical Problems: (1) Angina (2) Asthma (3) Asthma exacerbation (4) Benign hypertension (5) Bilateral hip replacement (6) Bronchitis (7) CAD (coronary artery disease) (8) Chest pain (9) COPD (chronic obstructive pulmonary disease) (10) COPD exacerbation (11) Diverticulitis (12) Diverticulosis (13) GERD (gastroesophageal reflux disease) (14) Headache (15) Heart disease (16) Hyperlipidemia (17) Hypertension (18) Neutropenic fever (19) Pneumonia (20) Pulmonary emboli (21) Splenomegaly (22) Stomach problems (23) Unstable angina Surgical Problems: (1) H/O prostatectomy (2) History of bilateral hip replacements Family History FH: diabetes mellitus FH: gallbladder disease FH: heart disease Hypertension Kidney disease Kidney stones Myocardial infarction Stroke Social History Smoking Status: Never Smoker Alcohol Use: none Drug Use: none Marital Status: Housing Status: lives with family Occupation Status: retired Current/Historical Medications Scheduled Apixaban (Eliquis), 5 MG PO BID Azithromycin (Zithromax), 250 MG PO DAILY Budesonide/Formoterol Fumarate (Symbicort 160/4.5 Inhaler), 1 PUFF PO BID Furosemide (Lasix), 40 MG PO DAILY Guaifenesin Ext Rel (Mucinex Ext Rel), 1,200 MG PO Q12 Ipratropium-Albuterol (Combivent Respimat), 1 PUFFS INH BID Isosorbide Mononitrate Ext Rel (Imdur Ext Rel), 60 MG PO QAM Metformin Hcl Er (Glucophage Er), 500 MG PO QDD Metoprolol Tartrate (Lopressor) (Lopressor), 25 MG PO BID Montelukast Sodium (Singulair), 10 MG PO DAILY Prednisone (Prednisone), 5 MG PO DAILY Prednisone (Prednisone), 3 TAB PO DAILY Ranitidine Hcl (Zantac), 300 MG PO BID Tiotropium [place] (Spiriva Handihaler), 1 CAP INH DAILY Scheduled PRN Benzonatate (Tessalon Perles), 100 MG PO TID PRN for Cough Ipratropium-Albuterol (Duoneb), 1 TREATMENT INH QID PRN for SOB/Wheezing Nitroglycerin (Nitrostat), 0.4 MG UT UD PRN for Chest Pain Allergies Coded Allergies: Ibuprofen (Verified Allergy, Mild, ULCERS, 01/24/18) Physical Exam Vital Signs Date Time Temp Pulse Resp B/P (MAP) Pulse Ox O2 Delivery O2 Flow Rate FiO2 02/19/18 01:06 94 18 125/82 95 02/19/18 00:00 92 20 138/87 92 Nasal Cannula 2.0 02/18/18 23:30 91 20 163/92 93 Nasal Cannula 2.0 02/18/18 22:30 85 18 147/78 94 Nasal Cannula 3.0 02/18/18 22:00 86 20 156/83 93 Nasal Cannula 3.0 02/18/18 21:30 88 20 135/58 93 Nasal Cannula 2.0 02/18/18 21:15 90 02/18/18 21:00 92 22 127/80 93 Nasal Cannula 2.0 02/18/18 20:49 94 22 94 Nasal Cannula 2.0 02/18/18 20:30 89 24 135/81 94 Nebulizer 8.0 02/18/18 20:11 86 26 138/71 98 Nebulizer 8.0 02/18/18 19:57 97 Nasal Cannula 2.0 02/18/18 19:52 95 Room Air 02/18/18 19:43 94 Room Air 02/18/18 19:43 95 Room Air 02/18/18 19:32 36.7 100 22 160/79 93 Room Air Physical Exam GENERAL: Awake, alert, dyspneic-appearing, in no distress HENT: Normocephalic, atraumatic. Oropharynx unremarkable. EYES: Normal conjunctiva. Sclera non-icteric. NECK: Supple. No nuchal rigidity. FROM. No JVD. RESPIRATORY: Diminished breath sounds bilaterally, scattered wheezing. CARDIAC: Regular rate, normal rhythm. Extremities warm and well perfused. Pulses equal. ABDOMEN: Obese and soft, non-distended. No tenderness to palpation. No rebound or guarding. No masses. RECTAL: Deferred. MUSCULOSKELETAL: Chest examination reveals no tenderness. The back is symmetrical on inspection without obvious abnormality. There is no CVA tenderness to palpation. No joint edema. LOWER EXTREMITIES: Calves are equal size bilaterally and non-tender. Scant lower extremity edema. No discoloration. NEURO: Normal sensorium. No sensory or motor deficits noted. SKIN: No rash or jaundice noted. Medical Decision & Procedures ER Provider Diagnostic Interpretation: Radiology results as stated below per my review and radiologist interpretation: CHEST ONE VIEW PORTABLE CLINICAL HISTORY: 77 years-old Male presenting with CHEST PAIN. TECHNIQUE: Portable upright AP view of the chest was obtained. COMPARISON: 01/24/2018. FINDINGS: Atherosclerosis of the aortic arch. Cardiac silhouette top normal in size. Mildly low lung volumes. Minimal peripheral bandlike opacity in the left lung base. No other focal opacity. No large effusion or pneumothorax. Degenerative changes of the thoracic spine. Degenerative changes of the glenohumeral joints. Upper abdomen normal. IMPRESSION: 1. Minimal left basilar atelectasis or scarring. No convincing evidence of acute cardiopulmonary disease. Electronically signed by: Christian Parkinson M.D. 02/18/2018 8:47 PM Dictated Date/Time: 02/18/2018 8:45 PM Laboratory Results 02/18/18 20:05 Red Blood Count 4.03, Mean Corpuscular Volume 86.1, Mean Corpuscular Hemoglobin 29.3, Mean Corpuscular Hemoglobin Concent 34.0, Mean Platelet Volume 9.0, Neutrophils (%) (Auto) 57.7, Lymphocytes (%) (Auto) 28.8, Monocytes (%) (Auto) 11.8, Eosinophils (%) (Auto) 0.4, Basophils (%) (Auto) 0.1, Neutrophils # (Auto ) 4.50, Lymphocytes # (Auto) 2.25, Monocytes # (Auto) 0.92, Eosinophils # (Auto ) 0.03, Basophils # (Auto) 0.01 02/18/18 20:05 02/18/18 21:32 Test 02/18/18 19:57 02/18/18 20:05 02/18/18 20:25 02/18/18 21:32 Influenza Type A (RT-PCR) Neg for Influ A (NEG) Influenza Type B (RT-PCR) Neg for Influ B (NEG) White Blood Count 7.80 K/uL (4.8-10.8) Red Blood Count 4.03 M/uL (4.7-6.1) Hemoglobin 11.8 g/dL (14.0-18.0) Hematocrit 34.7 % (42-52) Mean Corpuscular Volume 86.1 fL (80-100) Mean Corpuscular Hemoglobin 29.3 pg (25-34) Mean Corpuscular Hemoglobin Concent 34.0 g/dl (32-36) Platelet Count 166 K/uL (130-400) Mean Platelet Volume 9.0 fL (7.4-10.4) Neutrophils (%) (Auto) 57.7 % Lymphocytes (%) (Auto) 28.8 % Monocytes (%) (Auto) 11.8 % Eosinophils (%) (Auto) 0.4 % Basophils (%) (Auto) 0.1 % Neutrophils # (Auto) 4.50 K/uL (1.4-6.5) Lymphocytes # (Auto) 2.25 K/uL (1.2-3.4) Monocytes # (Auto) 0.92 K/uL (0.11-0.59) Eosinophils # (Auto) 0.03 K/uL (0-0.5) Basophils # (Auto) 0.01 K/uL (0-0.2) RDW Standard Deviation 49.5 fL (36.4-46.3) RDW Coefficient of Variation 15.7 % (11.5-14.5) Immature Granulocyte % (Auto) 1.2 % Immature Granulocyte # (Auto) 0.09 K/uL (0.00-0.02) Anion Gap 6.0 mmol/L (3-11) Est Creatinine Clear Calc Drug Dose 56.8 ml/min Estimated GFR () 80.3 Estimated GFR (Non- 69.3 BUN/Creatinine Ratio 13.4 (10-20) Calcium Level 8.8 mg/dl (8.5-10.1) Total Bilirubin 0.5 mg/dl (0.2-1) Alanine Aminotransferase (ALT/SGPT) 25 U/L (12-78) Alkaline Phosphatase 68 U/L (45-117) Troponin I < 0.015 ng/ml (0-0.045) Pro-B-Type Natriuretic Peptide 193 pg/ml (0-1800) Total Protein 6.8 gm/dl (6.4-8.2) Albumin 2.9 gm/dl (3.4-5.0) Lipase 202 U/L (73-393) Venous Blood pH 7.45 (7.36-7.41) Venous Blood Partial Pressure CO2 44 mmHg (38.0-50.0) Venous Blood Partial Pressure O2 71 mmHg Venous Blood HCO3 30 mmol/L Venous Blood Oxygen Saturation 94.0 % Venous Blood Base Excess 5.2 mEq/L Magnesium Level 1.7 mg/dl (1.8-2.4) Direct Bilirubin 0.1 mg/dl (0-0.2) Aspartate Amino Transf (AST/SGOT) 15 U/L (15-37) Laboratory results reviewed by me Medications Administered Medications (Trade) Dose Ordered Sig/Guille Route Start Time Stop Time Status Last Admin Dose Admin Dexamethasone Sodium Phosphate (Dexamethasone Inj Pf) 10 mg NOW ONCE IV 02/18/18 20:00 02/18/18 20:01 DC 02/18/18 20:08 10 MG Albuterol/ Ipratropium (Duoneb) 12 ml ONE ONCE INH 02/18/18 20:00 02/18/18 20:01 DC 02/18/18 19:59 12 ML Magnesium Sulfate (Magnesium Sulfate 1gm / D5W) 2 gm NOW STAT IV 02/18/18 23:46 02/18/18 23:47 DC 02/18/18 23:55 2 GM Azithromycin (Zithromax Tab) 500 mg NOW STAT PO 02/19/18 00:40 02/19/18 00:41 DC 02/19/18 00:59 500 MG ECG Per My Interpretation Indication: SOB/dyspnea Rate (beats per minute): 91 Rhythm: sinus rhythm Findings: other (LAD, no DAVID/STD) ED Course 1945: The patient was evaluated in room C8. A complete history and physical exam was performed. 1999: Ordered DuoNeb 12 mL INH, Dexamethasone 10 mg IV. 2345: Ordered Magnesium Sulfate 2 gm . 39: Ordered Azithromycin 500 mg PO. 50: I reevaluated the patient. Discussed results and discharge instructions: He verbalized understanding and agreement. The patient is ready for discharge. Medical Decision I reviewed the patient's past medical history, medications, and the nursing notes as described above. Differential diagnosis: Etiologies such as infections, reactive airway disease, pneumonia, pneumothorax , COPD, CHF, cardiac ischemia, pulmonary embolism, musculoskeletal, gastrointestinal, as well as others were entertained. The patient is a 77-year-old gentleman with a past medical history of severe asthma on nocturnal O2 and diurnal O2 as needed and history of PE on Eliquis who presents emergency department with worsening cough congestion shortness of breath over the past week per hpi. Patient is on 5 mg of prednisone at baseline is just recently completing a steroid taper. The patient follows with Dr. pressley, pulmonology. He also follows with Dr. Tarango, cardiology. On arrival the patient is dyspneic appearing but no acute distress. Afebrile stable vital signs. Despite his dyspnea he is saturating 94% on room air. Lungs diminished throughout with scattered wheezes. Patient's prior echo demonstrates a normal EF. EKG unremarkable. Labs unremarkable including WBC, Troponin, and BNP wnl. CXR negative for pna. Flu negative. Patient improved after steroids and continuous duoneb. Given patient's underlying lung disease will additional treat with Azithromycin for bronchitis. Findings and plan for follow-up reviewed with patient. Patient agreeable and d/c'd per discharge instructions. Medication Reconcilliation Current Medication List: was personally reviewed by me Blood Pressure Screening Patient's blood pressure: Elevated blood pressure Impression Primary Impression: Acute bronchitis Scribe Attestation The scribe's documentation has been prepared under my direction and personally reviewed by me in its entirety. I confirm that the note above accurately reflects all work, treatment, procedures, and medical decision making performed by me. Departure Information Dispostion Home / Self-Care Prescriptions Prednisone (Prednisone) 20 Mg Tab 3 TAB PO DAILY for 4 Days, #12 TAB FOR 4 DAYS Prov: Chad Oneill M.D. 02/19/18 Azithromycin (Zithromax) 250 Mg Tab 250 MG PO DAILY, #4 TAB Prov: Chad Oneill M.D. 02/19/18 Referrals No Doctor, Assigned (PCP) Patient Instructions ED Bronchitis Asthmatic, My [facility] Additional Instructions Please follow up with your primary care physician in the next 1-3 days for re- evaluation. You likely have a bronchitis. Otherwise, your exam, EKG, chest xray, and lab results did not show signs of an emergent condition at this time. Prednisone and Azithromycin as directed. Use your nebulizer (Duoneb) every 4 hours for the next 48 hours and then as needed thereafter. Return to the emergency department for worsening symptoms as described in the accompanying instructions.
[2018-02-18] MEDS ORDERED: GUAI1TAB55 PO (20:10)
[2018-02-18] MEDS ORDERED: IPRA1AER2 INH (20:12)
[2018-02-18] MEDS ORDERED: METF500T5 PO (20:14)
[2018-02-18 20:23] LABS: BASO % 0.1 %; BASO ABS # 0.01 K/uL (0-0.2); EOS % 0.4 %; EOS ABS # 0.03 K/uL (0-0.5); HEMATOCRIT 34.7 % (42-52); HEMOGLOBIN 11.8 g/dL (14.0-18.0); IG# 0.09 K/uL (0.00-0.02); LYMPH % 28.8 %; LYMPH ABS # 2.25 K/uL (1.2-3.4); MEAN CELL VOLUME 86.1 fL (80-100); MEAN CORPUSCULAR HEMOGLOBIN 29.3 pg (25-34); MONO % 11.8 %; MONO ABS # 0.92 K/uL (0.11-0.59); NEUT % 57.7 %; PLATELET COUNT 166 K/uL (130-400); RED CELL DISTRIBUTION WIDTH CV 15.7 % (11.5-14.5); RED CELL DISTRIBUTION WIDTH SD 49.5 fL (36.4-46.3)
--- NOTE | 2018-02-18 20:48 | DIAGNOSTIC IMAGING REPORT ---
CHEST ONE VIEW PORTABLE CLINICAL HISTORY: 77 years-old Male presenting with CHEST PAIN. TECHNIQUE: Portable upright AP view of the chest was obtained. COMPARISON: 01/24/2018. FINDINGS: Atherosclerosis of the aortic arch. Cardiac silhouette top normal in size. Mildly low lung volumes. Minimal peripheral bandlike opacity in the left lung base. No other focal opacity. No large effusion or pneumothorax. Degenerative changes of the thoracic spine. Degenerative changes of the glenohumeral joints. Upper abdomen normal. IMPRESSION: 1. Minimal left basilar atelectasis or scarring. No convincing evidence of acute cardiopulmonary disease. Electronically signed by: Christian Parkinson M.D. 02/18/2018 8:47 PM Dictated Date/Time: 02/18/2018 8:45 PM
[2018-02-18 20:49] VITALS: PULSE 94; O2SAT 94
[2018-02-18 21:02] LABS: INFLUENZA A PCR Neg for Influ A (NEG); INFLUENZA B PCR Neg for Influ B (NEG)
[2018-02-18 21:20] LABS: ALBUMIN 2.9 gm/dl (3.4-5.0); ALKALINE PHOSPHATASE 68 U/L (45-117); ALT/SGPT 25 U/L (12-78); BLOOD UREA NITROGEN 14 mg/dl (7-18); CALCIUM 8.8 mg/dl (8.5-10.1); CARBON DIOXIDE 29 mmol/L (21-32); CREATININE 1.03 mg/dl (0.60-1.40); GLUCOSE 128 mg/dl (70-99); LIPASE 202 U/L (73-393); SODIUM 141 mmol/L (136-145); TOTAL PROTEIN 6.8 gm/dl (6.4-8.2)
[2018-02-18 22:15] LABS: POTASSIUM 3.6 mmol/L (3.5-5.1)
[2018-02-18] MEDS ORDERED: MAGNESIUM SULFATE 1GM / D5W 1 GM BAG IV STA (23:46)
[2018-02-19] MEDS ORDERED: AZITHROMYCIN 250 MG TAB PO STA (00:40)
[2018-02-19] MEDS ORDERED: PRED20TA PO (00:40)
[2018-02-19] MEDS ORDERED: AZIT250T PO (00:40)
[2018-02-19 01:06] VITALS: BP 125/82; PULSE 94; O2SAT 95
== END 2018-02-19 01:06 | disposition home or self-care (01) ==
LOC: C.EDB 19:31 → C.EDC 02-19 01:06
DX: J20.9 Acute bronchitis, unspecified (principal); Z86.711 Personal history of pulmonary embolism; I10 Essential (primary) hypertension; J44.9 Chronic obstructive pulmonary disease, unspecified; K21.9 Gastro-esophageal reflux disease without esophagitis; Z79.01 Long term (current) use of anticoagulants; Z79.52 Long term (current) use of systemic steroids; Z79.899 Other long term (current) drug therapy

== ENCOUNTER 2018-05-15 12:50 | Emergency (ER) | payer BC ==
[~2018-05-15] VITALS: Ht 154.9 cm; Wt 96.7 kg
[~2018-05-15 12:50] MED LIST changes: +AZIT-57 PO; -BENZ100C7 PO; -FURO-85 PO; -GFNSR600 PO; -GLCSR500 PO; +GLIP2.5T11 PO; -IPRA1AER2 INH; -IPRASOL4 INH; -ISOS60TA25 PO; +METF500T5 PO; -METO50TA16 PO; -MONT1TAB3 PO; -PRED-301 PO; -SYMIN160 PO
[2018-05-15 13:00] VITALS: TEMP 36.6; Ht 154.9 cm; Wt 96.7 kg
[2018-05-15] MEDS ORDERED: ISOS60TA25 PO (13:17)
--- NOTE | 2018-05-15 13:33 | EMERGENCY ROOM VISIT NOTE ---
History Report prepared by Simi: Deisi Griffin Under the Supervision of: Dr. Rubens Broussard M.D. First contact with patient: 13:15 Chief Complaint: RECTAL BLEEDING Stated Complaint: RECTAL BLEEDING,BELLY PAIN History of Present Illness The patient is a 78 year old male who presents to the Emergency Room with complaints of intermittent rectal bleeding that started several days ago. The patient states the blood is "bright red." He notes there is blood in his stool and on the tissue. He denies any straining with bowel movements. He denies a history of rectal bleeding. The patient denies recent falls, abdominal pain, shortness of breath, dizziness, lightheadedness, fevers, or chills. He has a history of low white count and dementia. No bruising or bleeding elsewhere. Source of History: patient, spouse/significant other Onset: several days ago Position: other (rectum) Quality: other ("bright red") Timing: intermittent Associated Symptoms: No fevers, No chills, No SOB, No abdominal pain Review of Systems See HPI for pertinent positives & negatives. A total of 10 systems reviewed and were otherwise negative. Past Medical & Surgical Medical Problems: (1) Angina (2) Asthma (3) Asthma exacerbation (4) Benign hypertension (5) Bilateral hip replacement (6) Bronchitis (7) CAD (coronary artery disease) (8) Chest pain (9) COPD (chronic obstructive pulmonary disease) (10) COPD exacerbation (11) Diverticulitis (12) Diverticulosis (13) Fever and neutropenia (14) GERD (gastroesophageal reflux disease) (15) Headache (16) Heart disease (17) Hyperlipidemia (18) Hypertension (19) Neutropenic fever (20) Neutropenic fever (21) Pneumonia (22) Pulmonary emboli (23) Splenomegaly (24) Stomach problems (25) Unstable angina Surgical Problems: (1) H/O prostatectomy (2) History of bilateral hip replacements Old medical records were reviewed. Nurse's notes were reviewed and I agree with. Family History FH: diabetes mellitus FH: gallbladder disease FH: heart disease Hypertension Kidney disease Kidney stones Myocardial infarction Stroke Social History Smoking Status: Never Smoker Alcohol Use: none Drug Use: none Marital Status: Housing Status: lives with family Occupation Status: retired Current/Historical Medications Scheduled Apixaban (Eliquis), 5 MG PO BID Budesonide/Formoterol Fumarate (Symbicort 160/4.5 Inhaler), 1 PUFF PO BID Furosemide (Lasix), 40 MG PO DAILY Guaifenesin Ext Rel (Mucinex Ext Rel), 1,200 MG PO Q12 Isosorbide Mononitrate Ext Rel (Imdur Ext Rel), 60 MG PO QAM Metformin Hcl (Glucophage), 500 MG PO BID Metoprolol Tartrate (Lopressor) (Lopressor), 25 MG PO BID Montelukast Sodium (Singulair), 10 MG PO DAILY Prednisone (Prednisone), 5 MG PO DAILY Ranitidine Hcl (Zantac), 300 MG PO BID Tiotropium [place] (Spiriva Handihaler), 1 CAP INH DAILY Scheduled PRN Ipratropium-Albuterol (Duoneb), 1 TREATMENT INH QID PRN for SOB/Wheezing Ipratropium-Albuterol (Combivent Respimat), 1 PUFFS INH BID PRN for SOB/Wheezing Nitroglycerin (Nitrostat), 0.4 MG UT UD PRN for Chest Pain Allergies Coded Allergies: Ibuprofen (Verified Allergy, Mild, ULCERS, 05/15/18) Physical Exam Vital Signs Date Time Temp Pulse Resp B/P (MAP) Pulse Ox O2 Delivery O2 Flow Rate FiO2 05/15/18 17:36 79 18 119/62 97 05/15/18 16:44 72 18 132/93 94 Room Air 05/15/18 14:54 79 18 129/82 94 Room Air 05/15/18 13:00 36.6 93 20 153/88 96 Room Air Physical Exam General: Non-ill appearing older male in no acute distress. HEENT: Normal cephalic atraumatic. Pupils are equal round and reactive to light. Extraocular movements are intact. Oropharynx is pink with moist mucous membranes. No swelling of the mouth lips or tongue. Neck: Supple with a midline trachea. No meningeal signs or stiffness, no JVD or bruits. No Stridor. Chest: Clear to auscultation bilaterally. No wheezes or rhonchi. No increased work of breathing. Heart: regular rate and rhythm. Abdomen: Soft nontender, nondistended without rebound guarding or rigidity. Extremities: No cyanosis clubbing or edema. No calf tenderness or assymetry. Trace bilateral lower extremity edema, states this is baseline. Spine/Back. Non tender to palpation. No CVA tenderness Skin: Good turgor without rashes. Neurologic exam: Cranial nerves two through 12 are intact. Motor and sensation are intact and symmetrical throughout. Rectal: External irritation around 6 o'clock internally likely consistent with a mucosal irritation/anal fissure, stool was brown and guaiac negative, no rectal tenderness. Medical Decision & Procedures Laboratory Results 05/15/18 14:10 Red Blood Count 4.28, Mean Corpuscular Volume 85.3, Mean Corpuscular Hemoglobin 28.3, Mean Corpuscular Hemoglobin Concent 33.2, Mean Platelet Volume 9.8, Neutrophils (%) (Auto) 51.1, Lymphocytes (%) (Auto) 34.5, Monocytes (%) (Auto) 11.9, Eosinophils (%) (Auto) 1.5, Basophils (%) (Auto) 0.4, Neutrophils # (Auto ) 2.71, Lymphocytes # (Auto) 1.83, Monocytes # (Auto) 0.63, Eosinophils # (Auto ) 0.08, Basophils # (Auto) 0.02 05/15/18 14:10 Test 05/15/18 14:10 White Blood Count 5.30 K/uL (4.8-10.8) Red Blood Count 4.28 M/uL (4.7-6.1) Hemoglobin 12.1 g/dL (14.0-18.0) Hematocrit 36.5 % (42-52) Mean Corpuscular Volume 85.3 fL (80-100) Mean Corpuscular Hemoglobin 28.3 pg (25-34) Mean Corpuscular Hemoglobin Concent 33.2 g/dl (32-36) Platelet Count 145 K/uL (130-400) Mean Platelet Volume 9.8 fL (7.4-10.4) Neutrophils (%) (Auto) 51.1 % Lymphocytes (%) (Auto) 34.5 % Monocytes (%) (Auto) 11.9 % Eosinophils (%) (Auto) 1.5 % Basophils (%) (Auto) 0.4 % Neutrophils # (Auto) 2.71 K/uL (1.4-6.5) Lymphocytes # (Auto) 1.83 K/uL (1.2-3.4) Monocytes # (Auto) 0.63 K/uL (0.11-0.59) Eosinophils # (Auto) 0.08 K/uL (0-0.5) Basophils # (Auto) 0.02 K/uL (0-0.2) RDW Standard Deviation 47.0 fL (36.4-46.3) RDW Coefficient of Variation 15.1 % (11.5-14.5) Immature Granulocyte % (Auto) 0.6 % Immature Granulocyte # (Auto) 0.03 K/uL (0.00-0.02) Anion Gap 5.0 mmol/L (3-11) Est Creatinine Clear Calc Drug Dose 63.1 ml/min Estimated GFR () 89.0 Estimated GFR (Non- 76.8 BUN/Creatinine Ratio 14.6 (10-20) Calcium Level 8.7 mg/dl (8.5-10.1) Total Bilirubin 0.4 mg/dl (0.2-1) Direct Bilirubin < 0.1 mg/dl (0-0.2) Aspartate Amino Transf (AST/SGOT) 18 U/L (15-37) Alanine Aminotransferase (ALT/SGPT) 31 U/L (12-78) Alkaline Phosphatase 60 U/L (45-117) Total Protein 6.3 gm/dl (6.4-8.2) Albumin 3.2 gm/dl (3.4-5.0) Lipase 174 U/L (73-393) Laboratory studies as stated above per my review. Medications Administered Medications (Trade) Dose Ordered Sig/Guille Route Start Time Stop Time Status Last Admin Dose Admin Sodium Chloride 250 ml @ 999 mls/hr Q16M STAT IV 05/15/18 14:00 05/15/18 14:15 DC 05/15/18 14:26 999 MLS/HR Sodium Chloride 1,000 ml @ 100 mls/hr Q10H STAT IV 05/15/18 14:00 05/15/18 23:59 05/15/18 14:54 100 MLS/HR ECG Per My Interpretation Indication: other (rectal bleeding) Rate (beats per minute): 83 Rhythm: normal sinus (with sinus arrhythmia) Findings: no acute ischemic change Comparison ECG Date: 03/27/18 Change: no significant change ED Course 1315: Past medical records reviewed. The patient was evaluated in room C3, and a complete history and physical examination were performed. 1400: Ordered Sodium Chloride 1000 ml @ 100 mls/hr IV, Sodium Chloride 250 ml @ 999 mls/hr IV. 1720: Upon reevaluation, the patient is resting comfortably and in no distress. I discussed the results and treatment plan with him. He verbalized agreement of the treatment plan. The patient was discharged home. Medical Decision Differential Diagnosis: GI bleed, anemia, colitis, infection, electrolyte or metabolic abnormality. This patient comes in as described above. He was placed in room C3. He is a poor historian due to his dementia according his . He has been having intermittent bright red blood when he has bowel movements appears mostly on the paper. He occasionally will have some abdominal pain he denies any now he has no symptoms at present. He has been hemodynamically stable. He has had problems in the past with hematologic abnormalities but he has blood work done 2 days ago was unremarkable. IV access established and rechecked his blood work here he is not anemic. He has a normal white count is not neutropenic. He has normal platelets. He has no significant electrolyte or metabolic abnormalities. On rectal exam, he has normal tone and his stool is brown and is guaiac negative. He does have an area that looks like he probably does have a small rectal tear or abrasion. I think this is most likely causing his bleeding and his abdomen. I do not feel a need to do a CAT scan of his abdomen. He will follow-up with his regular doctor return if: increasing pain or bleeding, worsening of symptoms, any new problems or concerns the family agrees with this states that he has had a lot of CAT scans recently. Medication Reconcilliation Current Medication List: was personally reviewed by me Blood Pressure Screening Patient's blood pressure: Elevated blood pressure Blood pressure disposition: Elevated BP felt to be situational Impression Primary Impression: Rectal bleed Scribe Attestation The scribe's documentation has been prepared under my direction and personally reviewed by me in its entirety. I confirm that the note above accurately reflects all work, treatment, procedures, and medical decision making performed by me. Departure Information Dispostion Home / Self-Care Referrals Brad Mason III, CRNP (PCP) Patient Instructions My [facility] Additional Instructions Rest Warm Sitz baths if needed Return if: worsening of smyptoms, fever, increasing pain or bleeding, any new problems or concerns Follow-up with your doctor in 1-2 days for recheck
[2018-05-15] MEDS ORDERED: GLC/500 PO (13:41)
[2018-05-15] MEDS ORDERED: SODIUM CHLORIDE 0.9% 1000ML 1,000 ML IV STA (14:00)
[2018-05-15] MEDS ORDERED: SODIUM CHLORIDE 0.9% 1000ML 250 ML IV STA (14:00)
[2018-05-15] MEDS ORDERED: PRED-301 PO (14:06)
[2018-05-15 14:30] LABS: BASO % 0.4 %; BASO ABS # 0.02 K/uL (0-0.2); EOS % 1.5 %; EOS ABS # 0.08 K/uL (0-0.5); HEMATOCRIT 36.5 % (42-52); HEMOGLOBIN 12.1 g/dL (14.0-18.0); IG# 0.03 K/uL (0.00-0.02); LYMPH % 34.5 %; LYMPH ABS # 1.83 K/uL (1.2-3.4); MEAN CELL VOLUME 85.3 fL (80-100); MEAN CORPUSCULAR HEMOGLOBIN 28.3 pg (25-34); MEAN CORPUSCULAR HGB CONC 33.2 g/dl (32-36); MEAN PLATELET VOLUME 9.8 fL (7.4-10.4); MONO % 11.9 %; MONO ABS # 0.63 K/uL (0.11-0.59); NEUT % 51.1 %; NEUT ABS # 2.71 K/uL (1.4-6.5); PLATELET COUNT 145 K/uL (130-400); RED CELL DISTRIBUTION WIDTH CV 15.1 % (11.5-14.5)
[2018-05-15 14:51] LABS: CALCIUM 8.7 mg/dl (8.5-10.1); CREATININE 0.94 mg/dl (0.60-1.40); POTASSIUM 3.2 mmol/L (3.5-5.1)
[2018-05-15 14:58] LABS: ALBUMIN 3.2 gm/dl (3.4-5.0); ALKALINE PHOSPHATASE 60 U/L (45-117); ALT/SGPT 31 U/L (12-78); AST/SGOT 18 U/L (15-37); LIPASE 174 U/L (73-393); TOTAL PROTEIN 6.3 gm/dl (6.4-8.2)
[2018-05-15] MEDS ORDERED: MONT1TAB3 PO (16:19)
[2018-05-15] MEDS ORDERED: FURO-85 PO (16:19)
[2018-05-15 17:36] VITALS: BP 119/62; PULSE 79; O2SAT 97
[2018-05-15] MEDS ORDERED: IPRA-64 INH (19:51)
[2018-05-15] MEDS ORDERED: GUAI1TAB55 PO (20:10)
[2018-05-15] MEDS ORDERED: IPRA1AER2 INH (20:12)
[2018-05-15] MEDS ORDERED: SYMIN160 PO (20:39)
[2018-05-15] MEDS ORDERED: METO50TA16 PO (22:48)
== END 2018-05-15 17:37 | disposition home or self-care (01) ==
LOC: C.EDB 12:52 → C.EDC 17:37
DX: K62.5 Hemorrhage of anus and rectum (principal); J45.909 Unspecified asthma, uncomplicated; J44.9 Chronic obstructive pulmonary disease, unspecified; I25.10 Atherosclerotic heart disease of native coronary artery without angina pectoris; I11.9 Hypertensive heart disease without heart failure; I51.9 Heart disease, unspecified; Z79.01 Long term (current) use of anticoagulants; Z79.51 Long term (current) use of inhaled steroids; Z79.52 Long term (current) use of systemic steroids

== ENCOUNTER 2019-06-12 15:46 | Observation (INO) ==
[2019-06-12 16:27] LABS: Basophils # (auto) 0.01 K/uL (0-0.2); Basophils % (auto) 0.1 %; Eosinophils # (auto) 0.05 K/uL (0-0.5); Eosinophils % (auto) 0.7 %; Hemoglobin 10.6 g/dL (14.0-18.0); Immature Granulocytes # (auto) 0.03 K/uL (0.00-0.02); Immature Granulocytes % (auto) 0.4 %; Lymphocytes # (auto) 2.05 K/uL (1.2-3.4); Lymphocytes % (auto) 28.6 %; Mean Corpuscular Hgb Conc 30.3 g/dL (32-36); Mean Corpuscular Volume 78.3 fL (80-100); Monocytes # (auto) 0.58 K/uL (0.11-0.59); Monocytes % (auto) 8.1 %; Neutrophils # (auto) 4.44 K/uL (1.4-6.5); Neutrophils % (auto) 62.1 %; Platelet Count 168 K/uL (130-400); RDW Coefficient of Variation 17.3 % (11.5-14.5); RDW Standard Deviation 48.7 fL (36.4-46.3); Red Blood Count 4.47 M/uL (4.7-6.1); White Blood Count 7.16 K/uL (4.8-10.8)
[2019-06-12 16:38] LABS: iSTAT Creatinine 0.9 mg/dl (0.6-1.3); iSTAT Hemoglobin 11.6 g/dl (14.0-18.0); iSTAT Ionized Calcium 1.14 mmol/l (1.12-1.32); iSTAT Potassium 3.6 mEq/L (3.3-5.0)
[2019-06-12 16:39] LABS: Partial Thromboplastin Time 26.5 Seconds (21.0-31.0); Prothrombin Time 10.7 Seconds (9.0-12.0)
[2019-06-12 16:45] LABS: Albumin Level 3.5 gm/dl (3.4-5.0); BUN Creatinine Ratio 10.6 (10-20); Calcium 8.7 mg/dl (8.5-10.1); Creatinine Clr Calc Pharmacy 58.8 ml/min; Est GFR (Non-African American) 70.8; Potassium 3.6 mmol/L (3.5-5.1)
[2019-06-12 16:48] LABS: Albumin Globulin Ratio 0.9 (0.9-2); Bilirubin,Total 0.3 mg/dl (0.2-1); Globulin 3.8 gm/dl (2.5-4.0); Total Protein 7.3 gm/dl (6.4-8.2)
[2019-06-12] MEDS ORDERED: IOVERSOL 100ml IV PRN (17:14)
--- NOTE | 2019-06-12 17:45 | CT Scan Report ---
CT abd pelvis IV con only CLINICAL HISTORY: Abdominal pain and rectal bleeding COMPARISON STUDY: April 29, 2017 TECHNIQUE: The patient was scanned in a dynamic helical fashion during intravenous administration of 94 cc of Optiray 320. A dose lowering technique was utilized adhering to the principles of ALARA. CT DOSE: 1345.56 mGy.cm FINDINGS: Lower chest: There are dependent atelectatic changes. Liver: There is hepatic steatosis. No focal hepatic masses are visualized. Gallbladder: There is trace pericholecystic fluid adjacent to the gallbladder fundus. No calculi are visualized. The gallbladder is not distended Spleen: There is a stable 9 mm splenic hypodensity Pancreas: There is an 8 mm cystic pancreatic tail lesion. In addition there is a 16 mm cystic lesion involving the pancreatic body tail junction. While nonspecific, these lesions likely represent pancre atic side branch IPMN's. Adrenal glands: Unremarkable. Kidneys: No solid renal masses are visualized. There is no hydronephrosis. There is a 3 mm right helena l hypodensity and 1 cm left renal hypodensity, likely representing cysts. Bowel: There are no transition zones indicate bowel obstruction. There is extensive bobby diverticulosi s. There is no current evidence of acute diverticulitis. By history the appendix is surgically absent Peritoneum: There is no intraperitoneal free air or abdominal ascites. There are bilateral fat-contai dany hernias Vasculature: The abdominal aorta is normal in course and caliber. Adenopathy: None. Pelvic viscera: There is artifact secondary to bilateral hip arthroplasties. No pathologic pelvic mas ses are visualized Skeletal structures: No destructive osseous lesions are seen. IMPRESSION: 1. No evidence of bowel obstruction. No evidence of free air 2. Extensive pandiverticulosis. No evidence of acute diverticulitis. 3. Bilateral fat containing inguinal hernias 4. 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 06/12/2019 5:44 PM
[2019-06-12] MEDS ORDERED: FAMOTIDINE 20MG IV PUSH 20 MG/5 ML SYR IV STA (17:56)
[2019-06-12] MEDS ORDERED: IPRATROPIUM BROMIDE/ALBUTEROL respimat INH INH PRN (20:57)
[2019-06-12] MEDS ORDERED: ALUMINUM/MAGNESIUM SUSP 30 ML UDC PO PRN (20:57)
[2019-06-12] MEDS ORDERED: NITROGLYCERIN SL 0.4 MG/TAB TAB SL PRN (20:57)
[2019-06-12] MEDS ORDERED: MAGNESIUM HYDROXIDE SUSP 30 ML UDC PO PRN (20:57)
[2019-06-12] MEDS ORDERED: SODIUM CHLORIDE 0.9% 1000ML 1,000 ML IV SCH (20:57)
[2019-06-12] MEDS ORDERED: TRAMADOL HCL 50 MG TABLET PO PRN (20:57)
[2019-06-12] MEDS ORDERED: ALBUT/IPRATROP 3MG/0.5MG NEB 3 ML VIAL INH PRN (20:57)
[2019-06-12] MEDS ORDERED: ZOLPIDEM TARTRATE 5 MG TAB PO PRN (20:57)
[2019-06-12] MEDS ORDERED: ACETAMINOPHEN 325 MG TAB PO PRN (20:57)
--- NOTE | 2019-06-12 21:33 | History & Physical Report ---
Date of Service June 12, 2019 Assessment & Plan (1) Rectal bleed: Admit to inpatient down on telemetry Vital signs every 4 hours Lactic acid pending, BNP pending Follow CBC every 6 hours, keep H&H above 10 /30. CMP daily. Type and screen. Transfuse 1 units of blood if H&H drops below 8. Replenish electrolytes as needed GI consulted N.p.o. Started GoLYTELY bowel prep Hold Eliquis SCDs teds for DVT prophylaxis Full code per 's wishes Present on Admission?: Yes (2) Pulmonary emboli: Hold Eliquis due to GI bleed (3) COPD exacerbation: Stable at this time continue home meds: Ipratropium albuterol every 4 hours, Combivent Respimat and 1 inhalation 4 times daily, montelukast 10 mg tablet, budesonide 0.5 mg twice daily inhalation Present on Admission?: Yes (4) History of bilateral hip replacements: Stable at this time no issues Present on Admission?: Yes (5) Diverticulitis: Follow-up with GI recommendations Present on Admission?: Yes (6) CAD (coronary artery disease): Continue home meds: Furosemide 60 mg p.o. daily, isosorbide mononitrate 60 mg p.o. daily, metoprolol tartrate 25 mg p.o. daily, monitor blood pressure every 4 hours. Present on Admission?: Yes (7) Diabetes mellitus: A1c pending, managed per pharmacy Present on Admission?: Yes History of Present Illness Chief Complaint: Rectal bleeding Primary Care Provider: Brad Masno, JOHN, LAVERN Is a 78 years old male with past medical history of unstable angina, diverticulitis, COPD, Alzheimer dementia, GERD, coronary artery disease, of the lateral hip replacement, and pulmonary emboli on Eliquis presents to the emergency room with complaint of rectal bleeding that occurred this morning but it has been ongoing for almost 1 year. Patient currently denies any abdominal pain patient has regular bowel movement.His describes that this morning he had large bowel movement which was covered with the blood and it was loose. Patient is poor historian but denies fever chills chest pain shortness of breath abdominal pain frequency urgency hematuria dysuria melena. Reports of bright red blood in the stool. Patient white drip reports that also some tissue comes out together with blood. Patient took Eliquis this morning. Patient did not have colonoscopy so far. Labs are reviewed: Lateral cell 7.16, hemoglobin 10.6/hematocrit 35 platelets 168, PT 10.7 INR 1 APTT 26.5, sodium 142, potassium 3.6 chloride 105 anion gap 7 BUN 11 creatinine [address] abdomen and pelvis shows no significance of bowel obstruction. No evidence of free air. Extensive pandiverticulosis. No evidence of acute diverticulitis. Bilateral fat-containing inguinal hernias. Cystic pancreatic lesion. Patient was made to admit patient for observation on telemetry and trend H&H. Discussed with GI and they recommended colonoscopy in the morning started GoLYTELY bowel prep. Allergies Allergy/AdvReac Type Severity Reaction Status Date / Time ibuprofen Allergy Mild ULCERS Verified 06/12/19 16:31 Home Medications Home Medications Medication Instructions Recorded Confirmed Type apixaban [Eliquis] 5 mg PO BID 12/21/18 06/12/19 History glyburide 2.5 mg PO BID 12/21/18 06/12/19 History guaifenesin [Mucinex] 1,200 mg PO Q12H 12/21/18 06/12/19 History ipratropium-albuterol 3 ml INHALATION Q4H PRN 12/21/18 06/12/19 History ipratropium-albuterol [Combivent 1 puff INHALATION QID PRN 12/21/18 06/12/19 History Respimat] isosorbide mononitrate 60 mg PO DAILY 12/21/18 06/12/19 History loratadine [Claritin] 5 mg PO DAILY 12/21/18 06/12/19 History metoprolol tartrate 25 mg PO BID 12/21/18 06/12/19 History nitroglycerin [Nitrostat] 0.4 mg SUBLINGUAL DIRECTED 12/21/18 06/12/19 History prednisone 5 mg PO DAILY 12/21/18 06/12/19 History budesonide 0.5 mg INHALATION BID 12/31/18 06/12/19 History tramadol 50 - 100 mg PO Q4H PRN 12/31/18 06/12/19 History indacaterol 1 cap INHALATION DAILY 01/13/19 06/12/19 History metformin ER 500 mg 500 mg PO BID #90 tab 03/12/19 06/12/19 Rx tablet,extended release 24 hr tiotropium bromide 18 mcg capsule 1 cap INHALATION DAILY #30 puffs 05/05/19 06/12/19 Rx with inhalation device ranitidine 300 mg tablet 300 mg PO BID #60 tab 05/06/19 06/12/19 Rx montelukast 10 mg tablet 10 mg PO DAILY #30 tab 06/04/19 06/12/19 Rx furosemide [Lasix] 60 mg PO DAILY 06/12/19 06/12/19 History Past Med/Surg History Medical History COPD (chronic obstructive pulmonary disease) (Chronic) Splenomegaly (Chronic 12/19/12) Asthma (Chronic) Diverticulosis (Chronic) Heart disease (Chronic) CAD (coronary artery disease) (Chronic 10/04/13) Hypertension (Chronic) GERD (gastroesophageal reflux disease) (Chronic) Pulmonary emboli Dementia, vascular Inguinal hernia Inguinal hernia Right side Surgical History H/O prostatectomy (Resolved) History of bilateral hip replacements (Chronic) History of prostatectomy History of tonsillectomy History of tonsillectomy Status post total hip replacement, bilateral Social History Feels Safe at Home: Yes Smoking Status: Never smoker Review of Systems Review of Systems: All systems reviewed & are unremarkable except as noted in HPI & below Physical Exam Constitutional: WD/WN, vitals as above well developed and + morbidly obese Eyes: PERRL, conjunctivae normal, anicteric sclerae ENMT: external ear and nose normal, oropharynx normal Neck: trachea midline, no thyromegaly Respiratory: normal respiratory effort, lungs clear to auscultation Cardiovascular: Heart Sounds: normal S1 and normal S2 Palpation: + palpable S3 Vessels: normal peripheral pulses and dorsalis pedis pulses present 1+ edema nonpitting of the lower extremities bilaterally Gastrointestinal (Abdomen): normal bowel sounds, soft, nontender, no hepatosplenomegaly Musculoskeletal: no cyanosis or clubbing, extremities motor strength 5/5 Skin: no rashes, warm and dry + dry skin Neurologic: CN's II-XI intact bilaterally Psychiatric: Insight: + limited insight Severe Alzheimer dementia but patient is pleasant. Genitourinary: Bilateral inguinal hernia non incarcerated Lymphatic: no cervical or axillary lymphadenopathy Results & Data Vital Signs (Past 12 Hours) Vital Signs Temp Pulse Pulse Resp BP BP Pulse Ox 06/12/19 20:43 88 22 133/96 96 06/12/19 19:10 89 24 156/87 H 94 06/12/19 18:09 88 86 22 157/88 H 157/88 H 96 06/12/19 17:00 82 22 133/61 95 06/12/19 16:30 77 20 140/75 92 06/12/19 16:18 82 24 141/79 H 96 06/12/19 15:51 36.5 C 75 20 154/79 H 95 Code Status & VTE Plan Code Status Full code VTE Prophylaxis Plan VTE Prophylaxis will be ordered: No PG Care Time/CCT Total # of Minutes Spent Total Time Spent with Patient: Total time spent is greater than 50% in coordination of care (as documented) at patient's floor/unit and/or counseling patient:
[2019-06-12] MEDS: BUDESONIDE 0.5 MG/2 ML VIAL (PULMICORT) INH SCH (21:49)
[2019-06-12 21:59] LABS: Basophils # (auto) 0.03 K/uL (0-0.2); Basophils % (auto) 0.4 %; Eosinophils % (auto) 1.2 %; Hematocrit (blood only) 34.1 % (42-52); Hemoglobin 10.3 g/dL (14.0-18.0); Immature Granulocytes # (auto) 0.05 K/uL (0.00-0.02); Immature Granulocytes % (auto) 0.6 %; Lymphocytes # (auto) 2.99 K/uL (1.2-3.4); Lymphocytes % (auto) 36.6 %; Mean Corpuscular Hgb Conc 30.2 g/dL (32-36); Mean Corpuscular Volume 78.2 fL (80-100); Monocytes # (auto) 0.81 K/uL (0.11-0.59); Monocytes % (auto) 9.9 %; Neutrophils # (auto) 4.18 K/uL (1.4-6.5); Neutrophils % (auto) 51.3 %; Platelet Count 168 K/uL (130-400); RDW Coefficient of Variation 17.2 % (11.5-14.5); RDW Standard Deviation 48.4 fL (36.4-46.3); Red Blood Count 4.36 M/uL (4.7-6.1); White Blood Count 8.16 K/uL (4.8-10.8)
[2019-06-12] MEDS: guaiFENesin 600 MG TABCR PO SCH (22:18)
[2019-06-12] MEDS: METOPROLOL TARTRATE 25 MG TAB PO SCH (22:22)
[2019-06-12] MEDS ORDERED: LAVAGE SOLUTION 4000ML PO SCH (22:30)
[2019-06-13 02:49] LABS: Basophils # (auto) 0.01 K/uL (0-0.2); Basophils % (auto) 0.1 %; Eosinophils # (auto) 0.09 K/uL (0-0.5); Eosinophils % (auto) 1.1 %; Hematocrit (blood only) 34.1 % (42-52); Hemoglobin 10.3 g/dL (14.0-18.0); Immature Granulocytes # (auto) 0.02 K/uL (0.00-0.02); Immature Granulocytes % (auto) 0.3 %; Lymphocytes # (auto) 2.67 K/uL (1.2-3.4); Lymphocytes % (auto) 33.5 %; Mean Corpuscular Hgb Conc 30.2 g/dL (32-36); Mean Corpuscular Volume 78.4 fL (80-100); Mean Platelet Volume 9.7 fL (7.4-10.4); Monocytes # (auto) 0.65 K/uL (0.11-0.59); Monocytes % (auto) 8.2 %; Neutrophils # (auto) 4.53 K/uL (1.4-6.5); Neutrophils % (auto) 56.8 %; Platelet Count 152 K/uL (130-400); RDW Coefficient of Variation 17.3 % (11.5-14.5); RDW Standard Deviation 49.3 fL (36.4-46.3); Red Blood Count 4.35 M/uL (4.7-6.1); White Blood Count 7.97 K/uL (4.8-10.8)
[2019-06-13 03:06] LABS: Albumin Level 3.5 gm/dl (3.4-5.0); BUN Creatinine Ratio 10.4 (10-20); Calcium 8.3 mg/dl (8.5-10.1); Creatinine Clr Calc Pharmacy 66.2 ml/min; Est GFR (Non-African American) 81.1; Partial Thromboplastin Time 26.8 Seconds (21.0-31.0); Potassium 3.4 mmol/L (3.5-5.1); Prothrombin Time 10.6 Seconds (9.0-12.0)
[2019-06-13 03:09] LABS: Albumin Globulin Ratio 1.1 (0.9-2); Bilirubin,Total 0.4 mg/dl (0.2-1); Globulin 3.1 gm/dl (2.5-4.0); Total Protein 6.6 gm/dl (6.4-8.2)
[2019-06-13 06:02] LABS: Estimated Average Glucose 169 mg/dl; Hemoglobin A1C 7.5 % (4.5-5.6)
[2019-06-13] MEDS: BUDESONIDE 0.5 MG/2 ML VIAL (PULMICORT) INH SCH ×2 (07:13→18:51)
--- NOTE | 2019-06-13 08:37 | Hospitalist Progress Note ---
Date of Service June 13, 2019 Assessment & Plan (1) Rectal bleed: CBC stable, and rectal bleeding chronic. Therefore will just repeat CBC in AM Appreciate GI management - for planned colonoscopy today Present on Admission?: Yes (2) Pulmonary emboli: Diagnosed 05/2017 (limited by motion artifact, positive for at least 2 second -order right midlung emboli). No PE on CT for PE in 01/2018. No recurrent as per his therefore unclear why he is still on Eliquis. Holding Eliquis currently due to GI bleed (3) Moderate persistent asthma: No current exacerbation. Continue chronic prednisone 5mg daily, guaifenesin, Budesonide Q12H, Spiriva and Arcapta. Combivent PRN. (4) Diabetes mellitus: A1c 7.5 Q6H BSG while NPO, then ACHS Holding glyburide and metformin while NPO (5) Obstructive sleep apnea: Night time O2, intolerant to BiPAP (6) Hypertension: (7) CAD (coronary artery disease): Unconfirmed, declined DSE in January 2018 therefore suspect this is why he is not on ASA (+current bleeding on Eliquis). Continue isosorbide mononitrate 60 mg p.o. daily, metoprolol tartrate 25 mg p.o. BID (8) Leg edema: LVEF 55% echo 01/2018. No heart failure as per cardio note 01/2018. On lasix for leg edema, will reduce back to 40mg given renal function and main etiology of venous insufficiency. Likely some right sided failure from BISI and asthma. Subjective No acute events overnight. History revisited with his at bedside: 79 year-old male admission for acute on chronic rectal bleeding while on Eliquis. Plan was for an outpatient colonoscopy @ [facility] due to patient being on Eliquis felt to be too high risk given prior aspiration pneumonia with his last colonoscopy however workup has been delayed multiple times. She reports he was passing large amounts of bright red blood yesterday, called their PCP and was advised to go to ER for evaluation. GI already seen and patient taking GoLytely for planned colonoscopy today. Review of Systems Review of Systems: All systems reviewed & are unremarkable except as noted in HPI & below Leg edema and shortness of breath at baseline Physical Exam Constitutional: well developed and + morbidly obese; no acute distress Eyes: PERRL, conjunctivae normal, anicteric sclerae EOM intact bilaterally ENMT: external ear and nose normal, oropharynx normal Neck: trachea midline, no thyromegaly normal visual inspection Respiratory: normal respiratory effort, lungs clear to auscultation Cardiovascular: Rate/Rhythm: regular rate and regular rhythm Heart Sounds: normal S1 and normal S2; no gallop, no murmur and no cardiac rub Vessels: normal peripheral pulses (radial) Extremities: + edema (knees 2+ b/l) Gastrointestinal (Abdomen): normal bowel sounds, soft, nontender, no hepatosplenomegaly Skin: no rashes, warm and dry + dry skin Neurologic: PERRL, EOMI, accommodation nl, no face palsy, no dysarthria Psychiatric: Orientation: alert Insight: + limited insight Lymphatic: no cervical or axillary lymphadenopathy Results & Data Vital Signs (Past 12 Hours) Vital Signs Temp Pulse Pulse Resp BP BP BP 06/13/19 07:15 70 16 06/13/19 07:11 98.1 F 72 18 151/92 H 06/13/19 04:22 86 06/13/19 03:54 97.9 F 67 22 159/83 H 06/12/19 23:33 97.7 F 65 18 138/80 06/12/19 21:49 89 16 06/12/19 21:24 98.6 F 88 16 154/90 H 06/12/19 21:20 85 06/12/19 20:43 88 22 133/96 Pulse Ox 06/13/19 07:15 95 06/13/19 07:11 93 06/13/19 04:22 06/13/19 03:54 94 06/12/19 23:33 92 06/12/19 21:49 96 06/12/19 21:24 95 06/12/19 21:20 06/12/19 20:43 96 PG Care Time/CCT Total # of Minutes Spent Total Time Spent with Patient: Total time spent is greater than 50% in coordination of care (as documented) at patient's floor/unit and/or counseling patient: (1) Diabetes mellitus Diabetes mellitus complication status: without complication Diabetes mellitus manager terminal insulin use: without manager terminal use Diabetes mellitus type: type 2 Qualified Code(s): E11.9 - Type 2 diabetes mellitus without complications (2) CAD (coronary artery disease) Associated angina: with stable angina Coronary Disease-Associated Artery/Lesion type: [place] artery [place] vs. transplanted heart: [place] heart Qualified Code(s): I25.118 - Atherosclerotic heart disease of [place] coronary artery with other forms of angina pectoris (3) Moderate persistent asthma Asthma complication type: uncomplicated Qualified Code(s): J45.40 - Moderate persistent asthma, uncomplicated (4) Pulmonary emboli Acute cor pulmonale presence: without acute cor pulmonale Chronicity: acute Pulmonary embolism type: other Qualified Code(s): I26.99 - Other pulmonary embolism without acute cor pulmonale (5) Hypertension Hypertension type: essential hypertension Qualified Code(s): I10 - Essential (primary) hypertension
[2019-06-13] MEDS ORDERED: FUROSEMIDE 40 MG TAB PO SCH (09:00)
[2019-06-13] MEDS: METOPROLOL TARTRATE 25 MG TAB PO SCH ×2 (09:09→20:13)
[2019-06-13] MEDS: predniSONE 5 MG TAB PO SCH (09:09)
[2019-06-13] MEDS: MONTELUKAST SODIUM 10 MG TABLET PO SCH (09:09)
[2019-06-13] MEDS: guaiFENesin 600 MG TABCR PO SCH ×2 (09:09→20:13)
[2019-06-13] MEDS: ISOSORBIDE MONO EXTENDED REL 60 MG TABCR PO SCH (09:10)
[2019-06-13] MEDS: LORATADINE 10 MG TAB PO SCH (09:10)
--- NOTE | 2019-06-13 10:11 | Gastrointestinal Consultation ---
Date of Consultation June 13, 2019 Assessment & Plan (1) Rectal bleeding: (2) Anemia: 1. Complete GoLytely bowel prep. Instructed nursing to make patient NPO by 12. 2. Colonoscopy with Dr. Stanton today for further evaluation. 3. Additional recommendations pending results of testing. Supervising Physician Co-Signing Physician Notes Agree with LAVERN Hopkins as above Abd: Soft, NT, ND, +BS Continue current therapy Colonoscopy today as scheduled History of Present Illness Reason for Consultation: Rectal bleeding Requesting Physician: Dr. Gómez Attending Physician: Burton Snell MD History of Present Illness Patient is a 79 year-old male with a history of dementia, COPD, PE and CAD admitted to the hospital with rectal bleeding. The patient is known to our practice and has been evaluated in the past by Leidy Munoz PA-C for similar symptoms. He was to be arranged for an outpatient colonoscopy due to persistent but intermittent rectal bleeding which had been ongoing for approximately one year. Testing was to be arranged at [facility] due to concern for pulmonary complications after the last colonoscopy he had 10 years ago which resulted in aspiration pneumonia per 's report. She provides all of the history today. She states that after being seen in our office, the patient was scheduled for a colonoscopy to be performed at [facility] in April of this year. Prior to testing, she was contacted that the colonoscopy needed to be rescheduled until June but states she just received a letter stating the procedure was again cancelled and she was to call to reschedule. Yesterday, however, the patient began passing a significant amount of bright red blood with associated blood clots which prompted her to bring the patient to the hospital. She further reports that the patient was seen by Dr. Sanz in January of this year and found to have a drop in hemoglobin to approximately 8 and was transfused 2 units at that time. On arrival, he was noted to have a H&H of 10.3/34.1. GoLytely prep was initiated last night. Per nursing, he has completed 1/2 of the bowel prep solution. Patient denies any chest pain, shortness of breath or abdominal pain but is a poor historian due to cognitive impairment. Allergies Allergy/AdvReac Type Severity Reaction Status Date / Time ibuprofen Allergy Mild ULCERS Verified 06/12/19 16:31 Home Medications Home Medications Medication Instructions Recorded Confirmed Type apixaban [Eliquis] 5 mg PO BID 12/21/18 06/12/19 History glyburide 2.5 mg PO BID 12/21/18 06/12/19 History guaifenesin [Mucinex] 1,200 mg PO Q12H 12/21/18 06/12/19 History ipratropium-albuterol 3 ml INHALATION Q4H PRN 12/21/18 06/12/19 History ipratropium-albuterol [Combivent 1 puff INHALATION QID PRN 12/21/18 06/12/19 History Respimat] isosorbide mononitrate 60 mg PO DAILY 12/21/18 06/12/19 History loratadine [Claritin] 5 mg PO DAILY 12/21/18 06/12/19 History metoprolol tartrate 25 mg PO BID 12/21/18 06/12/19 History nitroglycerin [Nitrostat] 0.4 mg SUBLINGUAL DIRECTED 12/21/18 06/12/19 History prednisone 5 mg PO DAILY 12/21/18 06/12/19 History budesonide 0.5 mg INHALATION BID 12/31/18 06/12/19 History tramadol 50 - 100 mg PO Q4H PRN 12/31/18 06/12/19 History indacaterol 1 cap INHALATION DAILY 01/13/19 06/12/19 History metformin ER 500 mg 500 mg PO BID #90 tab 03/12/19 06/12/19 Rx tablet,extended release 24 hr tiotropium bromide 18 mcg capsule 1 cap INHALATION DAILY #30 puffs 05/05/19 06/12/19 Rx with inhalation device ranitidine 300 mg tablet 300 mg PO BID #60 tab 05/06/19 06/12/19 Rx montelukast 10 mg tablet 10 mg PO DAILY #30 tab 06/04/19 06/12/19 Rx furosemide [Lasix] 60 mg PO DAILY 06/12/19 06/12/19 History Patient History Medical History Leg edema (Chronic) Moderate persistent asthma (Chronic) Monoclonal B-cell lymphocytosis (Chronic) Obstructive sleep apnea (Chronic) moderate [03/2017] Splenomegaly (Chronic 12/19/12) Asthma (Chronic) Diverticulosis (Chronic) Heart disease (Chronic) CAD (coronary artery disease) (Chronic 10/04/13) Hypertension (Chronic) GERD (gastroesophageal reflux disease) (Chronic) Pulmonary emboli Dementia, vascular Inguinal hernia Left side Inguinal hernia Right side Surgical History History of bilateral hip replacements History of prostatectomy History of tonsillectomy Social History Preferred Language: Indonesian Communication Ability: Effective Hand Molder And Caster Required: No Beliefs That Will Affect Care: None Current Living Situation: Spouse Other Information That Helps Us Care for You: No Feels Safe at Home: Yes Safety Concerns: Feels Safe At This Time Smoking Status: Former smoker Hx Alcohol Use: Yes Alcohol type: beer Hx Substance Use: No Review of Systems Review of Systems: Unreliable due to poor cognition. Physical Exam Constitutional: WD/WN, vitals as above Eyes: EOM intact bilaterally Neck: normal visual inspection Respiratory: normal respiratory effort, lungs clear to auscultation Cardiovascular: Rate/Rhythm: regular rate and regular rhythm Heart Sounds: no gallop, no murmur and no cardiac rub Gastrointestinal (Abdomen): Inspection/Auscultation: normal bowel sounds P ercussion/Palpation: abdomen soft; abdomen nontender Musculoskeletal: mild lower extremity edema Skin: no rashes, warm and dry Psychiatric: Orientation: alert and oriented to person Results & Data Vital Signs (Past 12 Hours) Vital Signs Temp Pulse Pulse Resp BP BP Pulse Ox 06/13/19 07:15 70 16 95 06/13/19 07:11 36.7 C 72 18 151/92 H 93 06/13/19 04:22 86 06/13/19 03:54 36.6 C 67 22 159/83 H 94 06/12/19 23:33 36.5 C 65 18 138/80 92 Laboratory Results Abnormal lab results 06/12/19 06/12/19 06/12/19 Range/Units 16:18 16:18 16:25 RBC 4.47 L (4.7-6.1) M/uL Hgb 10.6 L (14.0-18.0) g/dL POC Hgb 11.6 L (14.0-18.0) g/dl Hct 35.0 L (42-52) % POC Hct 34 L (42-52) % MCV 78.3 L (80-100) fL MCH 23.7 L (25-34) pg MCHC 30.3 L (32-36) g/dL RDW Std Deviation 48.7 H (36.4-46.3) fL RDW Coeff of Haley 17.3 H (11.5-14.5) % Immature Gran # (Auto) 0.03 H (0.00-0.02) K/uL [place] # (Auto) (0.11-0.59) K/uL Potassium (3.5-5.1) mmol/L POC Chloride 100 L (101-112) mEq/L Glucose 187 H (70-99) mg/dl POC Glucose (other) 188 H (70-99) mg/dl Hemoglobin A1c (4.5-5.6) % Calcium (8.5-10.1) mg/dl Triglycerides (0-150) mg/dl POC Stool Occult Blood (Negative) 06/12/19 06/12/19 06/13/19 Range/Units 19:17 21:08 02:32 RBC 4.36 L 4.35 L (4.7-6.1) M/uL Hgb 10.3 L 10.3 L (14.0-18.0) g/dL POC Hgb (14.0-18.0) g/dl Hct 34.1 L 34.1 L (42-52) % POC Hct (42-52) % MCV 78.2 L 78.4 L (80-100) fL MCH 23.6 L 23.7 L (25-34) pg MCHC 30.2 L 30.2 L (32-36) g/dL RDW Std Deviation 48.4 H 49.3 H (36.4-46.3) fL RDW Coeff of [place] 17.2 H 17.3 H (11.5-14.5) % Immature Gran # (Auto) 0.05 H (0.00-0.02) K/uL [place] # (Auto) 0.81 H 0.65 H (0.11-0.59) K/uL Potassium (3.5-5.1) mmol/L POC Chloride (101-112) mEq/L Glucose (70-99) mg/dl POC Glucose (other) (70-99) mg/dl Hemoglobin A1c (4.5-5.6) % Calcium (8.5-10.1) mg/dl Triglycerides (0-150) mg/dl POC Stool Occult Blood Positive A (Negative) 06/13/19 06/13/19 Range/Units 02:32 02:32 RBC (4.7-6.1) M/uL Hgb (14.0-18.0) g/dL POC Hgb (14.0-18.0) g/dl Hct (42-52) % POC Hct (42-52) % MCV (80-100) fL MCH (25-34) pg MCHC (32-36) g/dL RDW Std Deviation (36.4-46.3) fL RDW Coeff of [place]aley (11.5-14.5) % Immature Gran # (Auto) (0.00-0.02) K/uL [place] # (Auto) (0.11-0.59) K/uL Potassium 3.4 L (3.5-5.1) mmol/L POC Chloride (101-112) mEq/L Glucose (70-99) mg/dl POC Glucose (other) (70-99) mg/dl Hemoglobin A1c 7.5 H (4.5-5.6) % Calcium 8.3 L (8.5-10.1) mg/dl Triglycerides 232 H (0-150) mg/dl POC Stool Occult Blood (Negative) PG Care Time/CCT Total # of Minutes Spent Total Time Spent with Patient: Total time spent is greater than 50% in coordination of care (as documented) at patient's floor/unit and/or counseling patient: (1) Anemia Anemia type: unspecified type Qualified Code(s): D64.9 - Anemia, unspecified
--- NOTE | 2019-06-13 10:16 | Emergency Department Note ---
Entered by Umang Cruz acting as a scribe for Gregory Martines MD History of Present Illness General Chief complaint: Rectal Bleed Stated complaint: RECTAL BLEEDING Time Seen by Provider: 06/12/19 15:51 Source: patient History of Present Illness Provider complaint: rectal bleeding Onset (ago): week(s) 1 Location: genitals Pain Consistency: + intermittent Quality: + other (bleeding) Exacerbated By: + none Associated symptoms: + denies other symptoms; no cough The patient is an 79 y/o male w/ PMHx diverticulitis, COPD, asthma, CAD, GERD, who presents to the ED w/ CC of intermittent rectal bleeding beginning a week ago. The patients states that the patient has had rectal bleeding and abdominal pain off the past year off and on with this past week being worse. They note that the patient is on eliquis, and that his last BM was this afternoon with bloody stool and blood dripping gout of the rectum. The patient denies a cough and any other symptoms. Home Medications Home Medications Medication Instructions Recorded Confirmed Type apixaban [Eliquis] 5 mg PO BID 12/21/18 06/12/19 History glyburide 2.5 mg PO BID 12/21/18 06/12/19 History guaifenesin [Mucinex] 1,200 mg PO Q12H 12/21/18 06/12/19 History ipratropium-albuterol 3 ml INHALATION Q4H PRN 12/21/18 06/12/19 History ipratropium-albuterol [Combivent 1 puff INHALATION QID PRN 12/21/18 06/12/19 History Respimat] isosorbide mononitrate 60 mg PO DAILY 12/21/18 06/12/19 History loratadine [Claritin] 5 mg PO DAILY 12/21/18 06/12/19 History metoprolol tartrate 25 mg PO BID 12/21/18 06/12/19 History nitroglycerin [Nitrostat] 0.4 mg SUBLINGUAL DIRECTED 12/21/18 06/12/19 History prednisone 5 mg PO DAILY 12/21/18 06/12/19 History budesonide 0.5 mg INHALATION BID 12/31/18 06/12/19 History tramadol 50 - 100 mg PO Q4H PRN 12/31/18 06/12/19 History indacaterol 1 cap INHALATION DAILY 01/13/19 06/12/19 History metformin ER 500 mg 500 mg PO BID #90 tab 03/12/19 06/12/19 Rx tablet,extended release 24 hr tiotropium bromide 18 mcg capsule 1 cap INHALATION DAILY #30 puffs 05/05/19 06/12/19 Rx with inhalation device ranitidine 300 mg tablet 300 mg PO BID #60 tab 05/06/19 06/12/19 Rx montelukast 10 mg tablet 10 mg PO DAILY #30 tab 06/04/19 06/12/19 Rx furosemide [Lasix] 60 mg PO DAILY 06/12/19 06/12/19 History Allergies Allergy/AdvReac Type Severity Reaction Status Date / Time ibuprofen Allergy Mild ULCERS Verified 06/12/19 16:31 Past Med/Surg History Medical History Leg edema (Chronic) Moderate persistent asthma (Chronic) Monoclonal B-cell lymphocytosis (Chronic) Obstructive sleep apnea (Chronic) moderate [03/2017] Splenomegaly (Chronic 12/19/12) Asthma (Chronic) Diverticulosis (Chronic) Heart disease (Chronic) CAD (coronary artery disease) (Chronic 10/04/13) Hypertension (Chronic) GERD (gastroesophageal reflux disease) (Chronic) Pulmonary emboli Dementia, vascular Inguinal hernia Left side Inguinal hernia Right side Surgical History History of bilateral hip replacements History of prostatectomy History of tonsillectomy Social History Preferred Language: Com[place]an Communication Ability: Effective Lan Analyst Required: No Beliefs That Will Affect Care: None Current Living Situation: Spouse Other Information That Helps Us Care for You: No Feels Safe at Home: Yes Safety Concerns: Feels Safe At This Time Smoking Status: Former smoker Hx Alcohol Use: Yes Alcohol type: beer Hx Substance Use: No Review of Systems See HPI for pertinent positives & negatives. and A total of 10 systems reviewed and were otherwise negative Physical Exam Vital Signs Vital Signs - 24 hr 06/12/19 15:51 06/12/19 16:05 06/12/19 16:18 Temperature 36.5 C Temperature Source Oral Sepsis Recent Fever Within 48 Hours No Sepsis Action Taken by Nursing No Action Required Pulse Rate 75 82 Pulse Rate [Finger] Pulse Rhythm Regular Pulse Strength Normal Respiratory Rate 20 24 Respiratory Effort / Characteristics Respiratory Depth Normal Blood Pressure 154/79 H 141/79 H Blood Pressure [Left Arm] Blood Pressure Mean 104 99 Blood Pressure Mean [Left Arm] Blood Pressure Position Sitting Pulse Oximetry 95 96 Oxygen Delivery Method Room Air Room Air Room Air 06/12/19 16:30 06/12/19 17:00 06/12/19 18:09 Temperature Temperature Source Sepsis Recent Fever Within 48 Hours Sepsis Action Taken by Nursing Pulse Rate 77 82 88 Pulse Rate [Finger] 86 Pulse Rhythm Pulse Strength Respiratory Rate 20 22 22 Respiratory Effort / Characteristics SOB on Exertion Respiratory Depth Blood Pressure 140/75 133/61 157/88 H Blood Pressure [Left Arm] 157/88 H Blood Pressure Mean 96 85 111 Blood Pressure Mean [Left Arm] 111 Blood Pressure Position Pulse Oximetry 92 95 96 Oxygen Delivery Method Room Air Room Air Room Air GENERAL: Well appearing, well nourished, NAD, non-toxic. EYE EXAM: Normal conjunctiva. PERRL, no anisocoria and EOM's grossly intact w/o pain. OROPHARYNX: Moist mucus membranes. Grossly normal dentition. NECK: Supple, no nuchal rigidity, no adenopathy, non-tender. No signs of meningismus. LUNGS: Clear to auscultation. Normal chest wall mechanics. HEART: NSR, no MRG. ABDOMEN: Abdomen soft, mild tenderness, normo-active bowel sounds, no masses, no rebound or guarding. BACK: No CVA TTP. SKIN: No rashes and no bruising. UPPER EXTREMITIES: Upper extremities are grossly normal. LOWER EXTREMITIES: No pitting edema. No calf pain. NEURO EXAM: Awake and alert follows commands. Course 1600: Past medical records reviewed. The patient was evaluated in room C09. A complete history and physical exam was performed. 1708: Rectal exam preformed and found non-bleeding, non-thrombus, external hemorrhoid, no bright red blood, and Hem positive. 1755: I spoke with Dr. Gómez - [facility] [place], she will evaluate for further management. Administered Medications Budesonide (Pulmicort Respules) 0.5 mg INH BIDR [facility] Stop: 07/13/19 06:59 Last Admin: 06/13/19 07:13 Dose: 0.5 mg Documented by: [id number] Admin: 06/12/19 21:49 Dose: 0.5 mg Documented by: [id number] Furosemide (Lasix) 60 mg PO DAILY SAM Stop: 07/13/19 08:59 Last Admin: 06/13/19 09:09 Dose: 60 mg Documented by: [id number] Guaifenesin (Mucinex) 1,200 mg PO Q12H SAM Stop: 07/12/19 20:59 Last Admin: 06/13/19 09:09 Dose: 1,200 mg Documented by: [id number] Admin: 06/12/19 22:18 Dose: 1,200 mg Documented by: [id number] Isosorbide Mononitrate (Imdur Extended Rel) 60 mg PO DAILY SAM Stop: 07/13/19 08:59 Last Admin: 06/13/19 09:10 Dose: 60 mg Documented by: [id number] Loratadine (Claritin) 5 mg PO DAILY SAM Stop: 07/13/19 08:59 Last Admin: 06/13/19 09:10 Dose: 5 mg Documented by: [id number] Metoprolol Tartrate (Lopressor) 25 mg PO BID SAM Stop: 07/12/19 20:59 Last Admin: 06/13/19 09:09 Dose: 25 mg Documented by: [id number] Admin: 06/12/19 22:22 Dose: 25 mg Documented by: [id number] Miscellaneous (Order Awaiting Action) 1 ea N/A QS SAM Stop: 07/13/19 00:00 Last Admin: 06/13/19 07:34 Dose: Not Given Documented by: [id number] Admin: 06/13/19 01:31 Dose: Not Given Documented by: [id number] Montelukast Sodium (Singulair) 10 mg PO DAILY SAM Stop: 07/13/19 08:59 Last Admin: 06/13/19 09:09 Dose: 10 mg Documented by: [id number] Prednisone (Prednisone) 5 mg PO DAILY SAM Stop: 07/13/19 08:59 Last Admin: 06/13/19 09:09 Dose: 5 mg Documented by: [id number] Ranitidine HCl (Zantac) 300 mg PO BID ASM Stop: 07/12/19 20:59 Last Admin: 06/13/19 09:09 Dose: 300 mg Documented by: [id number] Admin: 06/12/19 22:18 Dose: 300 mg Documented by: [id number] Discontinued Medications Famotidine (Pepcid 20mg Iv Push) 20 mg in 5 mls @ 2.5 mls/min IV NOW STA Stop: 06/12/19 17:57 Last Admin: 06/12/19 18:02 Dose: 2.5 mls/min Documented by: [id number] Sodium Chloride (Nss 1000ml) 1,000 mls @ 80 mls/hr IV .[id number] SAM Stop: 06/13/19 09:26 Last Admin: 06/12/19 21:42 Dose: 80 mls/hr Documented by: [id number] Ioversol (Optiray 320 100ml) 94 ml IV ONCE PRN PRN Reason: Interaction Checking Stop: 06/16/19 17:13 Last Admin: 06/12/19 17:15 Dose: 1 ml Documented by: [id number] Polyethylene Glycol/Electrolytes (Golytely) 1 dose PO TODAY@2230 SAM Stop: 06/13/19 05:00 Last Admin: 06/12/19 23:16 Dose: 1 dose Documented by: [id number] Medical Decision Making Medical Records Attestation: I reviewed the patient's medical records. Home Medications Current Medication List: was personally reviewed by me Laboratory Data Attestation: I reviewed the patient's lab results. Result diagrams: 06/13/19 02:32 06/13/19 02:32 Lab Results 06/12/19 06/12/19 06/12/19 Range/Units 16:18 16:18 16:18 WBC 7.16 (4.8-10.8) K/uL RBC 4.47 L (4.7-6.1) M/uL Hgb 10.6 L (14.0-18.0) g/dL POC Hgb (14.0-18.0) g/dl Hct 35.0 L (42-52) % POC Hct (42-52) % MCV 78.3 L (80-100) fL MCH 23.7 L (25-34) pg MCHC 30.3 L (32-36) g/dL RDW Std Deviation 48.7 H (36.4-46.3) fL RDW Coeff of Haley 17.3 H (11.5-14.5) % Plt Count 168 (130-400) K/uL MPV 10.0 (7.4-10.4) fL Immature Gran % (Auto) 0.4 % Neut % (Auto) 62.1 % Lymph % (Auto) 28.6 % Kleberg % (Auto) 8.1 % Eos % (Auto) 0.7 % Baso % (Auto) 0.1 % Immature Gran # (Auto) 0.03 H (0.00-0.02) K/uL Neut # (Auto) 4.44 (1.4-6.5) K/uL Lymph # (Auto) 2.05 (1.2-3.4) K/uL Kleberg # (Auto) 0.58 (0.11-0.59) K/uL Eos # (Auto) 0.05 (0-0.5) K/uL Baso # (Auto) 0.01 (0-0.2) K/uL PT 10.7 (9.0-12.0) Seconds INR 1.0 (0.9-1.1) APTT 26.5 (21.0-31.0) Seconds PTT Ratio 1.0 POC Sodium (135-144) mEq/L Sodium 142 (136-145) mmol/L POC Potassium (3.3-5.0) mEq/L Potassium 3.6 (3.5-5.1) mmol/L POC Chloride (101-112) mEq/L Chloride 105 (98-107) mmol/L Carbon Dioxide 30 (21-32) mmol/L POC Total CO2 (24-31) mEq/l Anion Gap 7.0 (3-11) POC Anion Gap (16-25) mmol/L POC BUN (7-18) mg/dl BUN 11 (7-18) mg/dl Creatinine 1.00 (0.6-1.4) mg/dl POC Creatinine (0.6-1.3) mg/dl Est Cr Clr Drug Dosing 58.8 ml/min Est GFR ( Amer) 82.0 Est GFR (Non-Af Amer) 70.8 BUN/Creatinine Ratio 10.6 (10-20) Glucose 187 H (70-99) mg/dl POC Glucose (other) (70-99) mg/dl Calcium 8.7 (8.5-10.1) mg/dl POC Ioniz Calcium Erwin (1.12-1.32) mmol/l Total Bilirubin 0.3 (0.2-1) mg/dl AST 17 (15-37) U/L ALT 33 (12-78) U/L Alkaline Phosphatase 68 (45-117) U/L Total Protein 7.3 (6.4-8.2) gm/dl Albumin 3.5 (3.4-5.0) gm/dl Globulin 3.8 (2.5-4.0) gm/dl Albumin/Globulin Ratio 0.9 (0.9-2) Blood Type Antibody Screen 06/12/19 06/12/19 Range/Units 16:18 16:25 WBC (4.8-10.8) K/uL RBC (4.7-6.1) M/uL Hgb (14.0-18.0) g/dL POC Hgb 11.6 L (14.0-18.0) g/dl Hct (42-52) % POC Hct 34 L (42-52) % MCV (80-100) fL MCH (25-34) pg MCHC (32-36) g/dL RDW Std Deviation (36.4-46.3) fL RDW Coeff of Haley (11.5-14.5) % Plt Count (130-400) K/uL MPV (7.4-10.4) fL Immature Gran % (Auto) % Neut % (Auto) % Lymph % (Auto) % Kleberg % (Auto) % Eos % (Auto) % Baso % (Auto) % Immature Gran # (Auto) (0.00-0.02) K/uL Neut # (Auto) (1.4-6.5) K/uL Lymph # (Auto) (1.2-3.4) K/uL Kleberg # (Auto) (0.11-0.59) K/uL Eos # (Auto) (0-0.5) K/uL Baso # (Auto) (0-0.2) K/uL PT (9.0-12.0) Seconds INR (0.9-1.1) APTT (21.0-31.0) Seconds PTT Ratio POC Sodium 141 (135-144) mEq/L Sodium (136-145) mmol/L POC Potassium 3.6 (3.3-5.0) mEq/L Potassium (3.5-5.1) mmol/L POC Chloride 100 L (101-112) mEq/L Chloride (98-107) mmol/L Carbon Dioxide (21-32) mmol/L POC Total CO2 26 (24-31) mEq/l Anion Gap (3-11) POC Anion Gap 19.0 (16-25) mmol/L POC BUN 10 (7-18) mg/dl BUN (7-18) mg/dl Creatinine (0.6-1.4) mg/dl POC Creatinine 0.9 (0.6-1.3) mg/dl Est Cr Clr Drug Dosing ml/min Est GFR ( Amer) Est GFR (Non-Af Amer) BUN/Creatinine Ratio (10-20) Glucose (70-99) mg/dl POC Glucose (other) 188 H (70-99) mg/dl Calcium (8.5-10.1) mg/dl POC Ioniz Calcium Erwin 1.14 (1.12-1.32) mmol/l Total Bilirubin (0.2-1) mg/dl AST (15-37) U/L ALT (12-78) U/L Alkaline Phosphatase (45-117) U/L Total Protein (6.4-8.2) gm/dl Albumin (3.4-5.0) gm/dl Globulin (2.5-4.0) gm/dl Albumin/Globulin Ratio (0.9-2) Blood Type AB Positive Antibody Screen NEGATIVE Imaging Data Radiologist's Impression: Radiology results as stated below per my review and the radiologist's interpretation: CT abd pelvis IV con only CLINICAL HISTORY: Abdominal pain and rectal bleeding COMPARISON STUDY: April 29, 2017 TECHNIQUE: The patient was scanned in a dynamic helical fashion during intravenous administration of 94 cc of Optiray 320. A dose lowering technique was utilized adhering to the principles of ALARA. CT DOSE: 1345.56 mGy.cm FINDINGS: Lower chest: There are dependent atelectatic changes. Liver: There is hepatic steatosis. No focal hepatic masses are visualized. Gallbladder: There is trace pericholecystic fluid adjacent to the gallbladder fundus. No calculi are visualized. The gallbladder is not distended Spleen: There is a stable 9 mm splenic hypodensity Pancreas: There is an 8 mm cystic pancreatic tail lesion. In addition there is a 16 mm cystic lesion involving the pancreatic body tail junction. 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 Adrenal glands: Unremarkable. Kidneys: No solid renal masses are visualized. There is no hydronephrosis. There is a 3 mm right renal hypodensity and 1 cm left renal hypodensity, likely representing cysts. Bowel: There are no transition zones indicate bowel obstruction. There is extensive bobby diverticulosis. There is no current evidence of acute diverticulitis. By history the appendix is surgically absent Peritoneum: There is no intraperitoneal free air or abdominal ascites. There are bilateral fat-containing hernias Vasculature: The abdominal aorta is normal in course and caliber. Adenopathy: None. Pelvic viscera: There is artifact secondary to bilateral hip arthroplasties. No pathologic pelvic masses are visualized Skeletal structures: No destructive osseous lesions are seen. IMPRESSION: 1. No evidence of bowel obstruction. No evidence of free air 2. Extensive pandiverticulosis. No evidence of acute diverticulitis. 3. Bilateral fat containing inguinal hernias 4. 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 06/12/2019 5:44 PM ECG Data Attestation: I personally reviewed and interpreted this ECG as follows: Indication: other (GI Bleed) Rate (beats per minute): 78 Rhythm: sinus rhythm Findings: + other (normal interval), + PVC, + T-wave inversion (v2) and + left axis deviation Blood Pressure Blood Pressure Findings: Elevated blood pressure Blood Pressure Disposition: further management by hospitalist MDM Narrative Differential diagnosis: Etiologies such as esophagitis, variceal bleed, Boer[place]aves, [place] tear, gastritis, peptic ulcer disease, AVM, inflammatory bowel disease, ischemia, diverticulosis, colitis, malignancy, coagulopathy, thrombocytopenia, fissure, hemorrhoid, epistaxis , as well as others were entertained. The patient is an 79 y/o male w/ PMHx diverticulitis, COPD, asthma, CAD, GERD, who presents to the ED w/ CC of intermittent rectal bleeding beginning a week ago. Patient was seen and evaluated the bedside. He patient does present with some rectal bleeding. The patient has been on Eliquis for prior history of PEs. The patient did have rectal exam that does show heme positive stool. No melenic stool. The patient's hemoglobin is stable compared to prior. Given the patient's anticoagulant use I did speak with the on-call hospitalist agreed to further evaluate treat the patient. I did speak with the pharmacist who recommended an H2 domi instead of Protonix given the concern that the patient likely has more of a lower GI bleed than an upper GI bleed. Patient was admitted to the medicine service. Impression & Plan Rectal bleeding, Anticoagulant long-term use, Anemia Discharge Plan Visit Data *Final* Discharge Date/Time: 06/12/19 20:43 Chief Complaint: Rectal Bleed Stated Complaint: RECTAL BLEEDING ED Provider: Gregory Martines Discharge Problem: Rectal bleeding, Anticoagulant long-term use, Anemia Patient Disposition: Admitted As Inpatient Discharge Instructions Interventions: ED Discharge Assessment Last Done: 06/12/19 20:43 Discharge Problem: Anemia Qualifiers: Anemia type: unspecified type Qualified Code(s): D64.9 - Anemia, unspecified The scribe's documentation has been prepared under my direction and personally reviewed by me in its entirety. I confirm that the note above accurately reflects all work, treatment, procedures, and medical decision making performed by me.
[2019-06-13] MEDS: TIOTROPIUM BROMIDE 5 PUFF/90 MCG INH INH SCH (10:31)
--- NOTE | 2019-06-13 12:09 | XRay Report ---
XR chest 2V routine HISTORY: 79 years-old Male shortness of breath, ?PNA acute shortness of breath COMPARISON: Acute abdominal series radiographs 12/31/2018 TECHNIQUE: PA and lateral views of the chest FINDINGS: Cardiac silhouette is enlarged, unchanged. Calcified plaque of the thoracic aortic arch. No pneumotho rax, pleural effusion or overt pulmonary edema. Mild chronic blunting of the posterior costophrenic a ngles. Mild chronic interstitial opacities of the left lung base. No focal airspace consolidation typ ical for pneumonia. Degenerative changes of the shoulders and spine. IMPRESSION: Cardiomegaly without acute process. The above report was generated using voice recognition software. It may contain grammatical, syntax o r spelling errors. Electronically signed by: Kuldeep Wilson M.D. 06/13/2019 12:08 PM
[2019-06-13] MEDS ORDERED: LIDOCAINE HCL 2% 2 ML VIAL/AMP(20MG/ML) INFIL ONE (15:28)
[2019-06-13] MEDS ORDERED: ONDANSETRON INJ 2 MG/ML 2 ML VIAL ONE (15:28)
[2019-06-13] MEDS ORDERED: PROPOFOL IV EMULSION 10 MG/ML 20 ML VIAL IV ONE (15:28)
--- NOTE | 2019-06-13 15:49 | Anesthesiology Consultation ---
Date of Service June 13, 2019 Anemia Rectal bleeding Dementia BISI Morbid Obesity Hx PEs Assessment & Plan (1) Encounter for pre-operative examination: Chart Review Chart Review: Acceptable Risk for Surgery and Patient NOT seen in Pre Admission Testing Consults Requested none ASA ASA4 Proposed Anesthesia Anesthesia Type: MAC Risk / Benefits Reviewed With: PT / POA / Parent / Guardian, Accepts Plan and Informed Consent Obtained History Surgery Operation Date: 06/13/19 10:10 Proposed Procedures p Colonoscopy Dr. Maximino Stanton, Height/Weight Height: 5 ft 1 in Weight: 97.5 kg Allergies Allergy/AdvReac Type Severity Reaction Status Date / Time ibuprofen Allergy Mild ULCERS Verified 06/12/19 16:31 Medications Home Medications Medication Instructions Recorded Confirmed Last Taken apixaban [Eliquis] 5 mg PO BID 12/21/18 06/12/19 06/12/19 08:00 glyburide 2.5 mg PO BID 12/21/18 06/12/19 06/12/19 08:00 guaifenesin [Mucinex] 1,200 mg PO Q12H 12/21/18 06/12/19 06/12/19 08:00 ipratropium-albuterol 3 ml INHALATION Q4H PRN 12/21/18 06/12/19 Unknown ipratropium-albuterol [Combivent 1 puff INHALATION QID PRN 12/21/18 06/12/19 Unknown Respimat] isosorbide mononitrate 60 mg PO DAILY 12/21/18 06/12/19 06/12/19 loratadine [Claritin] 5 mg PO DAILY 12/21/18 06/12/19 06/12/19 metoprolol tartrate 25 mg PO BID 12/21/18 06/12/19 06/12/19 08:00 nitroglycerin [Nitrostat] 0.4 mg SUBLINGUAL DIRECTED 12/21/18 06/12/19 Unknown prednisone 5 mg PO DAILY 12/21/18 06/12/19 06/12/19 budesonide 0.5 mg INHALATION BID 12/31/18 06/12/19 06/12/19 08:00 tramadol 50 - 100 mg PO Q4H PRN 12/31/18 06/12/19 Unknown indacaterol 1 cap INHALATION DAILY 01/13/19 06/12/1906/12/19 metformin ER 500 mg 500 mg PO BID #90 tab 03/12/19 06/12/19 06/12/19 08:00 tablet,extended release 24 hr tiotropium bromide 18 mcg capsule 1 cap INHALATION DAILY #30 puffs 05/05/19 06/12/19 06/12/19 with inhalation device ranitidine 300 mg tablet 300 mg PO BID #60 tab 05/06/19 06/12/19 06/12/19 08:00 montelukast 10 mg tablet 10 mg PO DAILY #30 tab 06/04/19 06/12/19 06/12/19 furosemide [Lasix] 60 mg PO DAILY 06/12/19 06/12/19 06/12/19 Active Medications Generic Name Dose Route Start Last Admin Trade Name Freq PRN Reason Stop Dose Admin Budesonide 0.5 mg 06/13/19 07:00 06/13/19 07:13 Pulmicort Respules INH 07/13/19 06:59 0.5 mg BIDR SAM Administration Guaifenesin 1,200 mg 06/12/19 21:00 06/13/19 09:09 Mucinex PO 07/12/19 20:59 1,200 mg Q12H SAM Administration Isosorbide Mononitrate 60 mg 06/13/19 09:00 06/13/19 09:10 Imdur Extended Rel PO 07/13/19 08:59 60 mg DAILY SAM Administration Loratadine 5 mg 06/13/19 09:00 06/13/19 09:10 Claritin PO 07/13/19 08:59 5 mg DAILY SAM Administration Metoprolol Tartrate 25 mg 06/12/19 21:00 06/13/19 09:09 Lopressor PO 07/12/19 20:59 25 mg BID SAM Administration Miscellaneous 1 ea 06/13/19 00:00 06/13/19 07:34 Order Awaiting Action N/A 07/13/19 00:00 Not Given QS SAM Montelukast Sodium 10 mg 06/13/19 09:00 06/13/19 09:09 Singulair PO 07/13/19 08:59 10 mg DAILY SAM Administration Prednisone 5 mg 06/13/19 09:00 06/13/19 09:09 Prednisone PO 07/13/19 08:59 5 mg DAILY SAM Administration Ranitidine HCl 300 mg 06/12/19 21:00 06/13/19 09:09 Zantac PO 07/12/19 20:59 300 mg BID SAM Administration Tiotropium Erwin 1 puffs 06/13/19 09:00 06/13/19 10:31 Spiriva INH 07/13/19 08:59 Not Given DAILY SAM NPO Date Last Intake of Fluids: 06/13/19 Time Last Intake of Fluids: 12:00 Date Last Intake of Solids: 06/12/19 Time Last Intake of Solids: 20:49 Past Medical History Medical History Leg edema (Chronic) Moderate persistent asthma (Chronic) Monoclonal B-cell lymphocytosis (Chronic) Obstructive sleep apnea (Chronic) moderate [03/2017] Splenomegaly (Chronic 12/19/12) Asthma (Chronic) Diverticulosis (Chronic) Heart disease (Chronic) CAD (coronary artery disease) (Chronic 10/04/13) Hypertension (Chronic) GERD (gastroesophageal reflux disease) (Chronic) Pulmonary emboli Dementia, vascular Inguinal hernia Left side Inguinal hernia Right side Exercise / Class Metabolic Activity III < 4 Walking/Shop/Light housework Past Surgical History Surgical History History of bilateral hip replacements History of prostatectomy History of tonsillectomy Past Anesthesia History No Hx of Anesthesia Complications and No Family Hx of Anesthesia Complications History of PONV No Hx of PONV and No Hx of Motion Sickness Social History Smoking Status: Former smoker Hx Alcohol Use: Yes Alcohol type: beer alcohol intake frequency: a few times a month Hx Substance Use: No Physical Exam Vital Signs Last Vital Signs Temp 36.7 C 06/13/19 15:41 Pulse 73 06/13/19 15:41 Resp 18 06/13/19 15:41 BP 134/81 06/13/19 15:41 Pulse Ox 94 06/13/19 15:41 Constitutional + obese ENMT Mouth: + poor dentition Thyromental Distance: > or= 3.5 Finger Breadths Mallampati Class: III Neck normal visual inspection Respiratory normal respiratory effort Auscultation: lungs clear to auscultation bilaterally Cardiovascular Rate/Rhythm: regular rate and regular rhythm Psychiatric Orientation: alert Testing Laboratory Results 06/13/19 02:32 06/13/19 02:32 PT 10.6 Seconds (9.0-12.0) 06/13/19 02:32 INR 1.0 (0.9-1.1) 06/13/19 02:32 APTT 26.8 Seconds (21.0-31.0) 06/13/19 02:32 Hemoglobin A1c 7.5 % (4.5-5.6) H 06/13/19 02:32 Blood Type AB Positive 06/12/19 16:18 Antibody Screen NEGATIVE 06/12/19 16:18
--- NOTE | 2019-06-13 16:32 | GI REPORT ---
Patient Name: Rio Daniel Procedure Date: 06/13/2019 3:40 PM Date of : 1940 Admit Type: Inpatient Age: 79 Gender: Male Attending MD: Nain Stanton DO Procedure: Colonoscopy Providers: Nain Stanton DO Referring MD: Burton Snell Md Indications: Rectal bleeding, Iron deficiency anemia Medicines: Monitored Anesthesia Care Complications: No immediate complications. Estimated Blood Loss: Estimated blood loss: none. Procedure: Pre-Anesthesia Assessment: - Prior to the procedure, a History and Physical was performed, and patient medications and allergies were reviewed. The patient's tolerance of previous anesthesia was also reviewed. The risks and benefits of the procedure and the sedation options and risks were discussed with the patient. All questions were answered, and informed consent was obtained. Prior Anticoagulants: The patient has taken Eliquis (apixaban), last dose was 1 day prior to procedure. ASA Grade Assessment: IV - A patient with severe systemic disease that is a constant threat to life. After reviewing the risks and benefits, the patient was deemed in satisfactory condition to undergo the procedure. After I obtained informed consent, the scope was passed under direct vision. Throughout the procedure, the patient's blood pressure, pulse, and oxygen saturations were monitored continuously. The Colonoscope was introduced through the anus and advanced to the terminal ileum. The colonoscopy was performed without difficulty. The patient tolerated the procedure well. The quality of the bowel preparation was good. The terminal ileum, ileocecal valve, appendiceal orifice, and rectum were photographed. Findings: The perianal and digital rectal examinations were normal. Two flat polyps were found in the ascending colon. The polyps were 8 to 12 mm in size. Polypectomy was not attempted due to the patient taking anticoagulation medication. Multiple small-mouthed diverticula were found in the sigmoid colon. Non-bleeding internal hemorrhoids were found during retroflexion. The hemorrhoids were small. Impression: - Two 8 to 12 mm polyps in the ascending colon. Resection not attempted. - Diverticulosis in the sigmoid colon. - Non-bleeding internal hemorrhoids. - No specimens collected. Recommendation: - Resume previous diet. - Continue present medications. - No repeat colonoscopy due to age. - Return patient to [facility] for ongoing care. Nain Stanton DO 06/13/2019 4:32:36 PM This report has been signed electronically. Note Initiated On: 06/13/2019 3:40 PM Number of Addenda: 0 I attest to the content of the Intraoperative Record and orders documented therein, exceptions below {[id number]}
--- NOTE | 2019-06-13 17:03 | Anesthesiology Progress Note ---
Date of Service June 13, 2019 Anesthesia Post Procedure Vital Signs Vital Signs: Temp Pulse Pulse Resp BP BP BP 06/13/19 16:41 73 16 140/71 06/13/19 16:26 77 16 132/77 06/13/19 15:41 36.7 C 73 18 134/81 06/13/19 12:07 36.7 C 70 20 124/76 06/13/19 07:15 70 16 06/13/19 07:11 36.7 C 72 18 151/92 H 06/13/19 04:22 86 06/13/19 03:54 36.6 C 67 22 159/83 H 06/12/19 23:33 36.5 C 65 18 138/80 06/12/19 21:49 89 16 06/12/19 21:24 37.0 C 88 16 154/90 H 06/12/19 21:20 85 06/12/19 20:43 88 22 133/96 06/12/19 19:10 89 24 156/87 H 06/12/19 18:09 88 86 22 157/88 H 157/88 H Pulse Ox 06/13/19 16:41 93 06/13/19 16:26 93 06/13/19 15:41 94 06/13/19 12:07 96 06/13/19 07:15 95 06/13/19 07:11 93 06/13/19 04:22 06/13/19 03:54 94 06/12/19 23:33 92 06/12/19 21:49 96 06/12/19 21:24 95 06/12/19 21:20 06/12/19 20:43 96 06/12/19 19:10 94 06/12/19 18:09 96 Transfer of Care Handoff Completed per policy Notes Mental Status: alert / awake / arousable Patient Amnestic to Procedure: Yes Nausea / Vomiting: adequately controlled Pain: adequately controlled Airway Patency, RR, SpO2: stable & adequate BP & HR: stable & adequate Hydration State: stable & adequate Anesthetic Complications: no major complications apparent
[2019-06-13] MEDS: PANTOprazole 40 MG TAB PO SCH (20:14)
[2019-06-14] MEDS: BUDESONIDE 0.5 MG/2 ML VIAL (PULMICORT) INH SCH (07:15)
[2019-06-14 07:35] LABS: Basophils # (auto) 0.01 K/uL (0-0.2); Basophils % (auto) 0.2 %; Eosinophils # (auto) 0.09 K/uL (0-0.5); Eosinophils % (auto) 1.8 %; Hematocrit (blood only) 32.7 % (42-52); Hemoglobin 9.6 g/dL (14.0-18.0); Immature Granulocytes # (auto) 0.01 K/uL (0.00-0.02); Immature Granulocytes % (auto) 0.2 %; Lymphocytes # (auto) 1.85 K/uL (1.2-3.4); Lymphocytes % (auto) 36.4 %; Mean Corpuscular Hgb Conc 29.4 g/dL (32-36); Mean Corpuscular Volume 80.9 fL (80-100); Monocytes # (auto) 0.55 K/uL (0.11-0.59); Monocytes % (auto) 10.8 %; Neutrophils # (auto) 2.57 K/uL (1.4-6.5); Neutrophils % (auto) 50.6 %; Platelet Count 139 K/uL (130-400); RDW Coefficient of Variation 17.4 % (11.5-14.5); RDW Standard Deviation 51.6 fL (36.4-46.3); Red Blood Count 4.04 M/uL (4.7-6.1); White Blood Count 5.08 K/uL (4.8-10.8)
[2019-06-14 08:07] LABS: Albumin Level 3.2 gm/dl (3.4-5.0); Calcium 8.1 mg/dl (8.5-10.1); Creatinine Clr Calc Pharmacy 68.5 ml/min; Est GFR (African American) 95.4; Est GFR (Non-African American) 82.3; Potassium 3.5 mmol/L (3.5-5.1)
[2019-06-14 08:09] LABS: Albumin Globulin Ratio 0.9 (0.9-2); Bilirubin,Total 0.3 mg/dl (0.2-1); Globulin 3.4 gm/dl (2.5-4.0); Total Protein 6.6 gm/dl (6.4-8.2)
[2019-06-14] MEDS ORDERED: FUROSEMIDE 40 MG TAB PO SCH (09:00)
[2019-06-14] MEDS ORDERED: HYDROCORTISONE HC 2.5% CRM 30GM TUBE EXT SCH (09:30)
[2019-06-14] MEDS: PANTOprazole 40 MG TAB PO SCH (10:33)
[2019-06-14] MEDS: MONTELUKAST SODIUM 10 MG TABLET PO SCH (10:34)
[2019-06-14] MEDS: ISOSORBIDE MONO EXTENDED REL 60 MG TABCR PO SCH (10:34)
[2019-06-14] MEDS: predniSONE 5 MG TAB PO SCH (10:34)
[2019-06-14] MEDS: METOPROLOL TARTRATE 25 MG TAB PO SCH (10:34)
[2019-06-14] MEDS: LORATADINE 10 MG TAB PO SCH (10:34)
[2019-06-14] MEDS: TIOTROPIUM BROMIDE 5 PUFF/90 MCG INH INH SCH (10:35)
[2019-06-14] MEDS: guaiFENesin 600 MG TABCR PO SCH (10:35)
--- NOTE | 2019-06-14 11:53 | Discharge Summary ---
Date of Service June 14, 2019 Admission HPI Per Admitting Provider Is a 78 years old male with past medical history of unstable angina, diverticulitis, COPD, Alzheimer dementia, GERD, coronary artery disease, of the lateral hip replacement, and pulmonary emboli on Eliquis presents to the emergency room with complaint of rectal bleeding that occurred this morning but it has been ongoing for almost 1 year. Patient currently denies any abdominal pain patient has regular bowel movement.His describes that this morning he had large bowel movement which was covered with the blood and it was loose. Patient is poor historian but denies fever chills chest pain shortness of breath abdominal pain frequency urgency hematuria dysuria melena. Reports of bright red blood in the stool. Patient white drip reports that also some tissue comes out together with blood. Patient took Eliquis this morning. Patient did not have colonoscopy so far. Labs are reviewed: Lateral cell 7.16, hemoglobin 10.6/hematocrit 35 platelets 168, PT 10.7 INR 1 APTT 26.5, sodium 142, potassium 3.6 chloride 105 anion gap 7 BUN 11 creatinine [address] abdomen and pelvis shows no significance of bowel obstruction. No evidence of free air. Extensive pandiverticulosis. No evidence of acute diverticulitis. Bilateral fat- containing inguinal hernias. Cystic pancreatic lesion. Patient was made to admit patient for observation on telemetry and trend H&H. Discussed with GI and they recommended colonoscopy in the morning started GoLYTELY bowel prep. Principal Diagnosis Acute blood loss anemia Lower GI bleed secondary to diverticulosis and Eliquis History of pulmonary embolism, possibly unprovoked Essential hypertension Dyslipidemia Diastolic congestive heart failure History of prostate cancer status post prostatectomy Dementia GERD Obstructive sleep apnea Morbid obesity Discharge Exam Physical examination General patient is morbidly obese appears to be comfortable, not in acute distress HEENT: Atraumatic , normocephalic /no jaundice /no pallor /anicteric /no dry mucous membrane /normal external ear inspection Neck: Supple /no swelling /central trach Heart: S1/S2 normal/regular rate and rhythm/no gallop /no rub /no murmur Lungs: Poor inspiratory effort, scattered rhonchi, but equal air entry bilaterally Abdomen: Soft/nontender/no guarding/no rebound/no organomegaly/no pulsatile mass Musculoskeletal: No swelling/no edema/no tenderness/normal range of motion Neuro exam: Awake alert oriented 3 very forgetful regarding his medical information/cranial nerves II through XII appear to be intact/sensation intact/moves all extremities/no abnormal movements Psychiatric evaluation: No depressed mood/normal affect Skin: No rash on exposed skin area/no erythema Extremity: Normal pulse/no pitting edema/no clubbing or cyanosis Discharge Data Allergies Allergy/AdvReac Type Severity Reaction Status Date / Time ibuprofen Allergy Mild ULCERS Verified 06/12/19 16:31 Consultations 06/12/19 20:57 Consult Case Management - Discharge Planning Routine Consult Gastroenterology Routine Procedures Performed Operation Date: 06/13/19 10:10 Actual Procedures p Colonoscopy - Nain Mi Case, DO Ordered Studies 06/12/19 16:05 CT abd pelvis IV con only Stat Hospital Course (1) Rectal bleed: Acute blood loss anemia secondary to above Patient was admitted to telemetry, hemoglobin was monitored closely and has been stable above 9, Patient was started on Protonix twice a day Eliquis was placed on hold. GI consult was appreciated Patient had a colonoscopy that showed two 8 to 12 mm polyps in the ascending colon. Resection not attempted. Diverticulosis in the sigmoid colon. Non-bleeding internal hemorrhoids. No specimens collected. Patient experienced no further bleeding, and hemoglobin was stable I had a long discussion with patient and his spouse Regarding risks and benefits, not being on blood thinner at all will predispose you possibly for recurrence of your pulmonary blood clot, being on a full dose blood thinner might brought to post pause you for having another GI bleed, a partial compromise was agreed upon is to take half the dose of the blood thinner twice a day that would be 2.5 mg of Eliquis twice a day for prevention of deep venous thrombosis, current dose recommendation is being used off label and off the FDA approval but seemed to myself and to the family would be the best compromise that would give you partial protection with less potential danger for GI bleed. If you noticed any blood in your stool please hold Eliquis and call 911 Started on Anusol cream for the hemorrhoids. Found today within acceptable stability for discharge (2) Pulmonary emboli: (3) Moderate persistent asthma: It appears that it was unprovoked from what they are telling me hence patient will be on 2.5 Eliquis twice a day No current exacerbation. Continue chronic prednisone 5mg daily, guaifenesin, Budesonide Q12H, Spiriva and Arcapta. Combivent PRN. (4) Diabetes mellitus: A1c 7.5 Continued on oral hypoglycemic upon the (5) Obstructive sleep apnea: Night time O2, intolerant to BiPAP (6) Hypertension: (7) CAD (coronary artery disease): Unconfirmed, declined DSE in January 2018 therefore suspect this is why he is not on ASA (+current bleeding on Eliquis). Continue isosorbide mononitrate 60 mg p.o. daily, metoprolol tartrate 25 mg p.o. BID (8) Leg edema: LVEF 55% echo 01/2018. No heart failure as per cardio note 01/2018. On lasix for leg edema, Continue Lasix 60 mg p.o. daily Total Time Total Time Spent Total Time Spent (In Minutes): 35 minutes total time spent is greater than 50% in coordination of care (as documented) at patient's floor/unit and/or counselin g patient/family discussion of care with nursing staff Discharge Plan Discharge Items Patient Disposition: Home - Home Health Services Reason For Visit: GI BLEED Discharge Diagnosis: Acute blood loss anemia Lower GI bleed secondary to diverticulosis and Eliquis History of pulmonary embolism, possibly unprovoked Essential hypertension Dyslipidemia Diastolic congestive heart failure History of prostate cancer status post prostatectomy Dementia GERD Obstructive sleep apnea Morbid obesity Discharge Goals: Decrease discomfort, Improve disease control and Improve function Activity: Resume your previous activity Lifting: Gradually increase as tolerated Bathing: No limitations Exercise/Sports: Gradually increase as tolerated Weightbearing: Full weightbearing Non-emergency contact: Primary Care Provider Call non-emergency contact if: you have any medication questions and your symptoms worsen Follow-up/Referrals: Brad Mason III, CRNP [Primary Care Provider] - Diet: Carb Consistent or DM2 and Low Sodium (2gm) Fluids: 1500ml (6 cups) Addtl Provider Instructions: As discussed with you and your spouse, not being on blood thinner at all will predispose you possibly for recurrence of your pulmonary blood clot, being on a full dose blood thinner might brought to post pause you for having another GI bleed, a partial compromise was agreed upon is to take half the dose of the blood thinner twice a day that would be 2.5 mg of Eliquis twice a day for prevention of deep venous thrombosis, current dose recommendation is being used off label and off the FDA approval but seemed to myself and to the family would be the best compromise that would give you partial protection with less potential danger for GI bleed. If you noticed any blood in your stool please hold Eliquis and call 911 You will be on Anusol cream per rectum for treatment of hemorrhoids for the next week Feel free to contact your primary care physician regarding any question about your medication Prescriptions: New hydrocortisone [Proctosol HC] 2.5 % Cream With Perineal Applicator 1 applic EXT BID Qty: 60 RF: 0 pantoprazole 40 mg Tablet,Delayed Release (Dr/Ec) 40 mg PO DAILY 30 Days Qty: 30 RF: 3 Eliquis 2.5 mg tablet 2.5 mg PO BID Qty: 60 RF: 1 Continued metformin 500 mg tablet extended release 24 hr 500 mg PO BID Qty: 90 RF: 3 Spiriva with HandiHaler 18 mcg capsule, w/inhalation device 1 cap INHALATION DAILY Qty: 30 RF: 5 montelukast [Singulair] 10 mg tablet 10 mg PO DAILY Qty: 30 RF: 5 isosorbide mononitrate 60 mg Tablet Extended Release 24 Hr 60 mg PO DAILY RF: 0 metoprolol tartrate 50 mg Tablet 25 mg PO BID RF: 0 ipratropium-albuterol 0.5 mg-3 mg(2.5 mg base)/3 mL Solution For Nebulization 3 ml INHALATION Q4H PRN (Reason: sob/wheezing) RF: 0 nitroglycerin [Nitrostat] 0.4 mg Tablet, Sublingual 0.4 mg Sublingual DIRECTED RF: 0 Combivent Respimat 20-100 mcg/actuation Mist 1 puff INHALATION QID PRN (Reason: sob/wheezing) RF: 0 guaifenesin [Mucinex] 1,200 mg Tablet Extended Release 12hr 1,200 mg PO Q12H RF: 0 prednisone 5 mg Tablet 5 mg PO DAILY RF: 0 glyburide 2.5 mg Tablet 2.5 mg PO BID RF: 0 loratadine [Claritin] 10 mg Tablet 5 mg PO DAILY RF: 0 tramadol 50 mg tablet 50 - 100 mg PO Q4H PRN (Reason: Pain) RF: 0 budesonide 0.5 mg/2 mL suspension for nebulization 0.5 mg Inhalation BID RF: 0 furosemide [Lasix] 40 mg tablet 60 mg PO DAILY RF: 0 indacaterol 75 mcg Capsule, W/Inhalation Device 1 cap INHALATION DAILY RF: 0 Discontinued ranitidine HCl 300 mg tablet 300 mg PO BID Qty: 60 RF: 11 Eliquis 5 mg Tablet 5 mg PO BID RF: 0 Stand-Alone Forms: My [facility]/Other Patient Handouts: Hypoglycemia, Diabetes Type 2 Coping Discharge Orders: Discharge Order (Routine); Ordered 06/14/19 Ordered By: Mimi Osborne Admission Data Admit Date/Time: 06/12/19 19:02 Attending Provider: Mimi Nguyen Admit Provider: Deon Gómez Primary Care Provider: Brad Msaon III Other Providers: Nain Stanton ; Deon Gómez Service: Telemetry
== END 2019-06-14 13:30 | disposition home health service (06) ==
LOC: ED 15:46 → 2S 15:46 → SUATTDRO 19:02 → 2S 20:43

== ENCOUNTER 2020-06-14 13:21 | Observation (INO) ==
--- NOTE | 2020-06-14 14:21 | Emergency Department Note ---
History of Present Illness General Chief complaint: Fall Stated complaint: FELL, UNABLE TO WALK, LEG PAIN Time Seen by Provider: 06/14/20 14:05 Source: patient and family Limitations: other (Dementia with significant memory loss) History of Present Illness Provider complaint: Rib pain Onset (ago): minute(s) Location: chest and right Radiation: non-radiation Pain Consistency: + constant Maximum Pain Intensity: 4 Exacerbated By: + other (Palpation) Associated symptoms: no cough, no fever/chills, no headaches, no nausea/vomiting, no shortness of breath and no syncope This is an 80-year-old male who presents with injuries after fall. He does not remember what happened and he states that he feels fine. The patient's states that he fell coming up on the steps. He tripped on the steps and hit his right side on concrete. She does not think he hit his head but is not sure. He did not have any LOC. He denies any difficulty breathing, neck pain, headache, recent illness, fever, cough, abdominal pain, vomiting or diarrhea or known exposure COVID-19. Per his his immunizations are up-to-date. His states that he hurt his right hand as well. Home Medications Home Medications Medication Instructions Recorded Confirmed Type ipratropium-albuterol 3 ml INHALATION Q4H PRN 12/21/18 06/14/20 History nitroglycerin [Nitrostat] 0.4 mg SUBLINGUAL DIRECTED 12/21/18 06/14/20 History blood sugar diagnostic #10 ea 07/15/19 06/04/20 History lancets 33 gauge #100 ea 07/15/19 06/04/20 History budesonide 0.5 mg/2 mL suspension 2 ml INH BID #120 ml 08/22/19 06/14/20 Rx for nebulization metoprolol tartrate 50 mg tablet 25 mg PO BID #90 tab 03/03/20 06/14/20 Rx cholecalciferol (vitamin D3) 25 25 mcg PO QAM 03/04/20 06/14/20 History mcg (1,000 unit) capsule furosemide 40 mg tablet 60 mg PO QAM tab 03/04/20 06/14/20 History vitamin B complex 1 tab PO HS 03/04/20 06/14/20 History glyburide 2.5 mg tablet 2.5 mg PO BID #180 tab 04/06/20 06/14/20 Rx metformin 500 mg tablet,extended 500 mg PO BID #180 tab 05/31/20 06/14/20 Rx release 24 hr dextromethorphan-guaifenesin 10 ml PO Q6H PRN 06/14/20 06/14/20 History [Guaifenesin-DM] isosorbide mononitrate 60 mg PO QAM 06/14/20 06/14/20 History montelukast [Singulair] 10 mg PO HS 06/14/20 06/14/20 History prednisone 5 mg PO QAM 06/14/20 06/14/20 History tiotropium bromide [Spiriva with 1 cap INHALATION HS 06/14/20 06/14/20 History HandiHaler] Allergies Allergy/AdvReac Type Severity Reaction Status Date / Time ibuprofen Allergy Mild ULCERS Verified 06/14/20 14:30 Past Med/Surg History Medical History Advanced COPD Anemia Anxiety CAD (coronary artery disease) (10/04/13) Colonoscopy planned 06/13/[address] Stanton Dementia, vascular Diabetes mellitus Diverticulosis Generalized osteoarthritis GERD (gastroesophageal reflux disease) Heart failure with preserved ejection fraction Hyperlipidemia Hypertension Inguinal hernia b/l? Leg edema Moderate persistent asthma Monoclonal B-cell lymphocytosis Obstructive sleep apnea moderate [03/2017] Periodic limb movement disorder Pulmonary emboli Sensorineural hearing loss (SNHL) of both ears Splenomegaly (12/19/12) Surgical History History of bilateral hip replacements History of prostatectomy History of tonsillectomy S/P colonoscopy S/P hernia repair S/P vasectomy Family History Family/Other Myocardial infarction Stroke Sister Diabetes Mother Cardiac disorder Myocardial infarction Grandmother Cardiac disorder Hypertension Grandfather Cardiac disorder Hypertension Denies family history of Esophageal cancer Ovarian cancer Prostate cancer Crohn's disease Breast cancer Colorectal cancer Social History Smoking Status: Former smoker Hx Alcohol Use: Yes Alcohol type: beer Hx Substance Use: No Preferred Language: Yoruba Communication Ability: Impaired Visual Impairment: No Limitations Hearing Ability: Hard of Hearing Clerical Adjuster Required: No Beliefs That Will Affect Care: None marital status: Current Living Situation: Spouse current occupational status: retired Other Information That Helps Us Care for You: No Feels Safe at Home: Yes Safety Concerns: Feels Safe At This Time Childhood Exposure to Second-Hand Smoke: No Dental Care, Regularly: Yes Physical Activity Frequency: 5-6 Times per Week Seatbelt Use: always Sunscreen Use: No Review of Systems See HPI for pertinent positives & negatives. and A total of 10 systems reviewed and were otherwise negative Physical Exam Vital Signs Vital Signs - 24 hr 06/14/20 13:27 06/14/20 13:49 06/14/20 14:00 Temperature 37.1 C Temperature Source Oral Pulse Rate 80 80 78 Pulse Rate [Right Finger] Pulse Rate from SpO2 Sensor 80 81 Pulse Rhythm Regular Respiratory Rate 18 23 24 Respiratory Effort / Characteristics Non-Labored Spontaneous Respiratory Depth Normal Respiratory Pattern Regular Blood Pressure 120/73 152/77 H 142/72 H Blood Pressure [Left Arm] Blood Pressure Mean 88 115 94 Blood Pressure Mean [Left Arm] Pulse Oximetry 96 93 91 Oxygen Delivery Method Room Air Room Air Room Air Sepsis Recent Fever Within 48 Hours No Sepsis New/Unexplained Change in Mental Status No Sepsis Action Taken by Nursing No Action Required 06/14/20 15:46 06/14/20 15:48 06/14/20 16:01 Temperature Temperature Source Pulse Rate Pulse Rate [Right Finger] 80 Pulse Rate from SpO2 Sensor 80 92 H Pulse Rhythm Respiratory Rate 20 Respiratory Effort / Characteristics Respiratory Depth Respiratory Pattern Blood Pressure 132/77 176/98 H Blood Pressure [Left Arm] 132/77 Blood Pressure Mean 100 143 Blood Pressure Mean [Left Arm] 95 Pulse Oximetry 94 93 93 Oxygen Delivery Method Room Air Room Air Room Air Sepsis Recent Fever Within 48 Hours Sepsis New/Unexplained Change in Mental Status Sepsis Action Taken by Nursing 06/14/20 16:56 06/14/20 17:00 Temperature Temperature Source Pulse Rate 87 Pulse Rate [Right Finger] 85 Pulse Rate from SpO2 Sensor 84 Pulse Rhythm Respiratory Rate 18 18 Respiratory Effort / Characteristics Respiratory Depth Respiratory Pattern Blood Pressure 146/86 H Blood Pressure [Left Arm] Blood Pressure Mean 113 Blood Pressure Mean [Left Arm] Pulse Oximetry 94 93 Oxygen Delivery Method Room Air Room Air Sepsis Recent Fever Within 48 Hours Sepsis New/Unexplained Change in Mental Status Sepsis Action Taken by Nursing Constitutional: Vital signs reviewed. Eyes: Pupils are equal round reactive to light. Conjunctiva are noninjected. ENT: Pharynx is clear without erythema or exudate. Mucous membranes are moist. Normocephalic atraumatic. No facial tenderness. Neck supple without meningeal signs. No midline tenderness to the cervical spine. Respiratory: Clear to auscultation bilaterally. Breath sounds are equal bilaterally. Cardiovascular: Regular rate and rhythm. No rubs or gallops. GI: Soft, nondistended and nontender. Bowel sounds are present. Musculoskeletal: No tenderness to the right hip but he has pain with range of motion of the right hip. He has no tenderness distally and no tenderness to the right upper extremity or left upper and lower extremities. He does have tenderness to the right lower anterior ribs without crepitus or flail segment. Mild tenderness to the right hand over the fourth and third metacarpal heads where he has a dime sized skin tear/abrasion. Integumentary: No cyanosis. or jaundice. Neurological: The patient is awake and alert. No focal deficits. Psychiatric: Normal affect. Not anxious appearing. Course Administered Medications Acetaminophen (Acetaminophen 325 Mg Tab) 650 mg PO Q4H PRN PRN Reason: pain/fever Stop: 07/14/20 18:29 Last Admin: 06/14/20 18:40 Dose: 650 mg Documented by: [id number] Budesonide (Budesonide 0.5 Mg/2 Ml Vial (Pulmicort)) 0.5 mg INH BIDR [facility] Stop: 07/14/20 18:59 Last Admin: 06/14/20 19:29 Dose: 0.5 mg Documented by: [id number] Ampicillin Sodium/Sulbactam Sodium 3,000 mg/ Sodium Chloride 108 mls @ 200 mls/hr IV Q6H [facility]; Protocol Stop: 06/24/20 18:29 Last Admin: 06/14/20 19:55 Dose: 200 mls/hr Documented by: [id number] Lidocaine (Lidocaine 5% 1 Patch) 1 patch TD DAILY@1900 [facility] Stop: 07/14/20 18:59 Last Admin: 06/14/20 19:07 Dose: 1 patch Documented by: [id number] Discontinued Medications Oxycodone HCl (Oxycodone Hcl Ir 5 Mg Tab (Immediate Release)) 5 mg PO NOW STA Stop: 09/07/20 15:12 Last Admin: 06/14/20 15:15 Dose: 5 mg Documented by: [id number] Medical Decision Making Differential Diagnosis Rib fracture, rib contusion, hip fracture, strain, hand fracture, ICH Medical Records Attestation: I reviewed the patient's medical records. I did perform a limited focused review of portions of the patient's old chart on the electronic medical record. The patient has had no recent pertinent visits to this hospital. Home Medications Current Medication List: was personally reviewed by me Laboratory Data Result diagrams: 06/14/20 17:00 06/14/20 17:00 Lab Results 06/14/20 06/14/20 06/14/20 Range/Units 17:00 17:00 17:00 WBC 10.77 (4.8-10.8) K/uL RBC 4.52 L (4.7-6.1) M/uL Hgb 13.8 L (14.0-18.0) g/dL Hct 41.5 L (42-52) % MCV 91.8 (80-100) fL MCH 30.5 (25-34) pg MCHC 33.3 (32-36) g/dL RDW Std Deviation 47.7 H (36.4-46.3) fL RDW Coeff of Haley 14.2 (11.5-14.5) % Plt Count 144 (130-400) K/uL MPV 10.0 (7.4-10.4) fL Immature Gran % (Auto) 0.5 % Neut % (Auto) 66.6 % Lymph % (Auto) 21.4 % Mellette % (Auto) 11.4 % Eos % (Auto) 0.1 % Baso % (Auto) 0.0 % Neut # (Auto) 7.18 H (1.4-6.5) K/uL Lymph # (Auto) 2.30 (1.2-3.4) K/uL Mellette # (Auto) 1.23 H (0.11-0.59) K/uL Eos # (Auto) 0.01 (0-0.5) K/uL Baso # (Auto) 0.00 (0-0.2) K/uL Immature Gran # (Auto) 0.05 H (0.00-0.02) K/uL PT 10.9 (9.0-12.0) Seconds INR 1.0 (0.9-1.1) APTT 27.7 (21.0-31.0) Seconds PTT Ratio 1.0 Sodium 141 (136-145) mmol/L Potassium 4.2 (3.5-5.1) mmol/L Chloride 104 (98-107) mmol/L Carbon Dioxide 30 (21-32) mmol/L Anion Gap 7.0 (3-11) BUN 14 (7-18) mg/dl Creatinine 1.15 (0.6-1.4) mg/dl Est Cr Clr Drug Dosing Not Reportable Est GFR ( Amer) 68.8 Est GFR (Non-Af Amer) 59.4 BUN/Creatinine Ratio 12.4 (10-20) Glucose 171 H (70-99) mg/dl Calcium 9.3 (8.5-10.1) mg/dl Total Bilirubin 0.5 (0.2-1) mg/dl AST 25 (15-37) U/L ALT 41 (12-78) U/L Alkaline Phosphatase 68 (45-117) U/L Total Protein 7.7 (6.4-8.2) gm/dl Albumin 3.7 (3.4-5.0) gm/dl Globulin 4.0 (2.5-4.0) gm/dl Albumin/Globulin Ratio 0.9 (0.9-2) Imaging Data Radiologist's Impression: CT SCAN OF THE CERVICAL SPINE CLINICAL HISTORY: Fall. COMPARISON STUDY: CT scans of the cervical spine dated 12/21/2018 and 10/13/2014. TECHNIQUE: CT scan of the cervical spine is performed from the skull base to the upper thoracic spine. Images are reviewed in the axial, sagittal, and coronal planes. IV contrast was not administered for this examination. A dose lowering technique was utilized adhering to the principles of ALARA. CT DOSE: 1198.01 mGy.cm FINDINGS: Skeletal structures: The skeletal structures are osteopenic. There is chronic fracture through the base of the odontoid process versus an os odontoideum. There is approximately 5 mm of dorsal displacement of the odontoid process as compared to the body of C2 which is unchanged from previous. There is no evidence of acute fracture or subluxation involving the cervical spine. Vertebral body height is maintained. There is minimal anterolisthesis at C5-C6. Alignment is otherwise preserved. Anterior osteophytes are seen throughout. The lateral masses are intact. The atlantoaxial articulation is preserved noting productive degenerative change. The spinous processes appear intact. There is advanced multilevel cervical spondylosis. Uncovertebral and facet arthropathy contribute to neural foraminal stenosis at most levels. Intervertebral discs: Moderate disc space narrowing is seen at C2-C3 at C6-C7. Mild disc space narrowing is seen at the remaining cervical levels. Central canal: Grossly patent. Soft tissues: The prevertebral and paraspinous soft tissues are within normal limits. There is atherosclerotic calcification of the carotid bulbs. Calvarium: The visualized calvarium at the skull base appears intact. Brain parenchyma: Partially visualized brain parenchyma the skull base is within normal limits noting age-related involutional change. Sinuses and mastoids: The visualized paranasal sinuses are clear. The mastoid air cells are well pneumatized. Lung apices: Clear as visualized. IMPRESSION: 1. There is no evidence of acute fracture or subluxation involving the cervical spine. 2. There is a chronic fracture through the base of the odontoid process versus os odontoideum as detailed above. This is unchanged from 2015. 3. Osteopenia and multilevel spondylosis as above. Electronically signed by: Ananda Sweeney M.D. 06/14/2020 2:47 PM Dictated: 06/14/20 1443 Transcribed: 06/14/[address] SCAN OF THE BRAIN WITHOUT IV CONTRAST CLINICAL HISTORY: Fall. COMPARISON STUDY: CT of the brain dated 12/21/2018. TECHNIQUE: Unenhanced axial CT scan of the brain is performed from the vertex to the skull base. A dose lowering technique was utilized adhering to the principles of ALARA. CT DOSE: 1198.01 mGy.cm FINDINGS: Brain parenchyma: There are age-related involutional changes noting mild subcortical and periventricular microangiopathic change. There is no hemorrhage, mass effect, or evidence of acute territorial ischemia by CT criteria. Duran- white matter differentiation is preserved. No extra-axial fluid collection is seen. Ventricles, sulci, cisterns: Prominent secondary to involutional change. Intracranial vasculature: There is atherosclerotic calcification of the cavernous carotid arteries. Calvarium: The skeletal structures are osteopenic. There is no depressed calvarial fracture. Sinuses and mastoids: There is trace mucosal thickening within the left maxillary antrum and the right ethmoid sinuses. The remaining visualized paranasal sinuses are clear. The mastoid air cells are well pneumatized. Orbits: The bony orbits are grossly intact. There are bilateral ocular lens implants and there has been banding of both ocular globe. IMPRESSION: There is no hemorrhage, mass effect, or evidence of acute territorial ischemia by CT criteria. Electronically signed by: Ananda Sweeney M.D. 06/14/2020 2:43 PM Dictated: 06/14/20 1440 Transcribed: 06/14/20 1440 AP CHEST WITH RIGHT-SIDED RIB SERIES CLINICAL HISTORY: Fall. Right-sided chest wall pain. FINDINGS: An AP upright chest radiograph with 4 additional views from a right- sided rib series is compared to study dated 06/13/2019. Correlation is made with chest CT dated 03/27/2018. The AP views degraded by apical lordotic positioning. The heart is enlarged noting atherosclerotic calcification of the thoracic aorta. The pulmonary vasculature is noncongested. Chronic interstitial thickening is similar to previous. Atelectasis is noted at the lung bases. The lungs and pleural spaces are otherwise clear. No pneumothorax is seen. The sk eletal structures are osteopenic. There are right anterior 6th and 7th rib fractures. The 7th rib fractures mildly displaced. The remainder of the bony thorax is grossly intact. Advanced arthritic change is noted in the shoulders. IMPRESSION: 1. Cardiomegaly with no acute cardiopulmonary abnormality. 2. Acute right anterior rib fractures as above. ACT 112: Negative or not required by law. Electronically signed by: Ananda Sweeney M.D. 06/14/2020 3:03 PM Dictated: 06/14/20 1459 Transcribed: 06/14/20 1459 SINGLE VIEW PELVIS; 2 VIEWS RIGHT HIP CLINICAL HISTORY: Fall. Right hip pain. FINDINGS: An AP view of the pelvis with AP and frog-leg views of the right hip are compared to study dated 10/04/2009 and correlated with pelvic CT dated 06/12/2019. The skeletal structures are osteopenic. Bilateral hip arthroplasties are in near-anatomic alignment. No periprosthetic lucency is seen. There is no radiographic evidence of acute fracture involving the hips or bony pelvis. The sacroiliac joints are normal. The overlying soft tissues are normal as imaged. Phleboliths are observed in the pelvis. Advanced lumbosacral spondylosis is partially visualized. There is atherosclerotic calcification of the femoral arteries. IMPRESSION: 1. There is no radiographic evidence of acute fracture involving the hips or bony pelvis. 2. Bilateral hip arthroplasties are in place. Electronically signed by: Ananda Sweeney M.D. 06/14/2020 2:59 PM Dictated: 06/14/20 1457 Transcribed: 06/14/20 1457 RIGHT HAND 3 VIEWS CLINICAL HISTORY: Fall. Right hand injury. FINDINGS: 3 views of the right hand are compared to study dated 07/05/2016. The skeletal structures are osteopenic. No acute fracture is identified. Advanced degenerative narrowing is seen at the radiocarpal articulation where there is bony sclerosis and overgrowth. There is widening between the scaphoid and the lunate with 8 mm of separation. 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 Moderate osteoarthritic change is seen at the first carpometacarpal joint. Osteoarthritic change is also seen involving the metacarpophalangeal and interphalangeal joints. Erosive osteoarthritis is seen at the second proximal interphalangeal joint as well as the second and third distal interphalangeal joints. Mild diffuse soft tissue edema is noted. Large hooked osteophytes are present arising from the third and fourth metacarpal heads. IMPRESSION: 1. No acute fracture is identified. 2. 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 3. Osteoarthritic/erosive osteoarthritic change as above. Electronically signed by: Ananda Sweeney M.D. 06/14/2020 3:06 PM Dictated: 06/14/20 1503 Transcribed: 06/14/[address] SCAN OF THE BONY PELVIS WITHOUT IV CONTRAST; CT SCAN OF THE RIGHT HIP WITHOUT IV CONTRAST CLINICAL HISTORY: Fall. Right hip pain. COMPARISON STUDY: CT of the pelvis dated 06/12/2019. Hip and pelvic radiographs dated 06/14/2020. TECHNIQUE: CT scan of the bony pelvis is performed from the pelvic inlet to the proximal femora. Additionally, CT scan of the right hip is performed from the bony pelvis to the proximal femur. Images for both examinations are reviewed in the axial, sagittal, and coronal planes. IV contrast was not administered for these examinations. A dose lowering technique was utilized adhering to the principles of ALARA. The examination is degraded by streak artifact from bilateral hip arthroplasties. CT DOSE: 1203.06 mGy.cm FINDINGS: The skeletal structures are osteopenic. There is no evidence of fracture involving the hips or bony pelvis. Bilateral hip arthroplasties are in place. Cerclage wires are noted in the greater trochanters bilaterally. Lucency around one of the cortical screws transfixing the right acetabular cup suggests loosening. This is similar to the 2019 examination. Expansile lucency involving the left proximal femur is unchanged from the 06/12/2019 examination. No destructive bony lesion is clearly seen. The regional musculature demonstrates symmetric atrophy. No hematoma is seen. Evaluation of the pelvic viscera is degraded by streak artifact from bilateral hip arthroplasties. There is advanced diverticulosis of the visualized colon. There is wall thickening with pericolonic inflammation seen involving the distal descending colon consistent with acute diverticulitis. No organized fluid collection is seen to suggest abscess. A normal appendix is noted. An umbilical hernia contains a nonobstructed segment of small bowel. The visualized bowel loops show no evidence of obstruction. The bladder is normal as visualized. The prostate gland is diminutive versus surgically absent. There is no free fluid in the pelvis. There is atherosclerotic calcification of the distal abdominal aorta and iliac arteries. No pelvic sidewall or inguinal adenopathy is identified. IMPRESSION: 1. Advanced colonic diverticulosis with evidence of acute diverticulitis involving the distal descending colon. No organized fluid collection is seen to suggest abscess on this unenhanced examination. 2. There is no evidence of acute fracture involving the hips or bony pelvis. 3. Bilateral hip arthroplasties are in place. 4. Additional chronic osseous findings as above. 5. An umbilical hernia contains a nonobstructed segment of small bowel. ACT 112: Negative or not required by law. Electronically signed by: Ananda Sweeney M.D. 06/14/2020 4:32 PM Dictated: 06/14/20 162 Transcribed: 06/14/20 162 Blood Pressure Blood Pressure Findings: Elevated blood pressure Blood Pressure Disposition: Referred to patients primary care provider Head Trauma GCS Score: 15 MDM Narrative I did evaluate the patient as noted above. I did obtain history from the pa tient as well as his due to his memory issues. He apparently had a mechanical fall today and injured his right side. I did order and personally reviewed the images of the patient's right hand, ribs, hip and pelvis and chest x-rays as described above. The patient has 1/6 and seventh rib fracture. There is no pneumothorax. No fractures to the hand, hip or pelvis. I did order a CT of the head and cervical spine. I did review the images myself as well as the radiology report as described above. There is no evidence of cervical fracture or intracranial hemorrhage. The patient was given oxycodone p.o. I did discuss the test results with the patient and his . He has no complaints currently. We did try an ambulatory trial but he was not able to get up. IV access was established. I did order and personally review the patient's 12-lead EKG as described above. He has no acute ischemic changes. I did order and review the patient's blood work as noted in the electronic medical record. He has slight anemia and hyperglycemia. Otherwise his labs are unremarkable. I did order a CT of the right hip and pelvis. I did review the images myself as well as the radiology report as described above. He has no evidence of fracture but surprisingly he has acute diverticulitis. I did reassess the patient again. He is sitting on the edge of the bed. I did discuss the test results with the patient and his . He has no abdominal tenderness on my examination. His does state that he has been complaining of an upset stomach for the past week. Given he is unable to ambulate he will be hospitalized for further care and evaluation. He will be placed on antibiotics per the hospitalist. I did discuss the case with the hospitalist and case managers. Impression & Plan Injury of hip, right, Fall, Diverticulitis, Fracture, ribs, Ambulatory dysfunction Discharge Plan Visit Data Chief Complaint: Fall Stated Complaint: FELL, UNABLE TO WALK, LEG PAIN ED Provider: Wil Joe Discharge Problem: Injury of hip, right, Fall, Diverticulitis, Fracture, ribs, Ambulatory dysfunction Patient Disposition: Admitted As Inpatient Discharge Instructions Interventions: ED Discharge Assessment Last Done: 06/14/20 17:44
--- NOTE | 2020-06-14 14:44 | CT Scan Report ---
CT SCAN OF THE BRAIN WITHOUT IV CONTRAST CLINICAL HISTORY: Fall. COMPARISON STUDY: CT of the brain dated 12/21/2018. TECHNIQUE: Unenhanced axial CT scan of the brain is performed from the vertex to the skull base. A do se lowering technique was utilized adhering to the principles of ALARA. CT DOSE: 1198.01 mGy.cm FINDINGS: Brain parenchyma: There are age-related involutional changes noting mild subcortical and periventric ular microangiopathic change. There is no hemorrhage, mass effect, or evidence of acute territorial i schemia by CT criteria. Duran-white matter differentiation is preserved. No extra-axial fluid collecti on is seen. Ventricles, sulci, cisterns: Prominent secondary to involutional change. Intracranial vasculature: There is atherosclerotic calcification of the cavernous carotid arteries. Calvarium: The skeletal structures are osteopenic. There is no depressed calvarial fracture. Sinuses and mastoids: There is trace mucosal thickening within the left maxillary antrum and the righ t ethmoid sinuses. The remaining visualized paranasal sinuses are clear. The mastoid air cells are we ll pneumatized. Orbits: The bony orbits are grossly intact. There are bilateral ocular lens implants and there has be en banding of both ocular globe. IMPRESSION: There is no hemorrhage, mass effect, or evidence of acute territorial ischemia by CT diana vivar. Electronically signed by: Ananda Sweeney M.D. 06/14/2020 2:43 PM
--- NOTE | 2020-06-14 14:48 | CT Scan Report ---
CT SCAN OF THE CERVICAL SPINE CLINICAL HISTORY: Fall. COMPARISON STUDY: CT scans of the cervical spine dated 12/21/2018 and 10/13/2014. TECHNIQUE: CT scan of the cervical spine is performed from the skull base to the upper thoracic spine . Images are reviewed in the axial, sagittal, and coronal planes. IV contrast was not administered fo r this examination. A dose lowering technique was utilized adhering to the principles of ALARA. CT DOSE: 1198.01 mGy.cm FINDINGS: Skeletal structures: The skeletal structures are osteopenic. There is chronic fracture through the ba se of the odontoid process versus an os odontoideum. There is approximately 5 mm of dorsal displaceme nt of the odontoid process as compared to the body of C2 which is unchanged from previous. There is n o evidence of acute fracture or subluxation involving the cervical spine. Vertebral body height is ma intained. There is minimal anterolisthesis at C5-C6. Alignment is otherwise preserved. Anterior osteo phytes are seen throughout. The lateral masses are intact. The atlantoaxial articulation is preserved noting productive degenerative change. The spinous processes appear intact. There is advanced multil evel cervical spondylosis. Uncovertebral and facet arthropathy contribute to neural foraminal stenosi s at most levels. Intervertebral discs: Moderate disc space narrowing is seen at C2-C3 at C6-C7. Mild disc space narrow ing is seen at the remaining cervical levels. Central canal: Grossly patent. Soft tissues: The prevertebral and paraspinous soft tissues are within normal limits. There is athero sclerotic calcification of the carotid bulbs. Calvarium: The visualized calvarium at the skull base appears intact. Brain parenchyma: Partially visualized brain parenchyma the skull base is within normal limits noting age-related involutional change. Sinuses and mastoids: The visualized paranasal sinuses are clear. The mastoid air cells are well pneu matized. Lung apices: Clear as visualized. IMPRESSION: 1. There is no evidence of acute fracture or subluxation involving the cervical spine. 2. There is a chronic fracture through the base of the odontoid process versus os odontoideum as deta iled above. This is unchanged from 2015. 3. Osteopenia and multilevel spondylosis as above. Electronically signed by: Ananda Sweeney M.D. 06/14/2020 2:47 PM
--- NOTE | 2020-06-14 15:01 | XRay Report ---
SINGLE VIEW PELVIS; 2 VIEWS RIGHT HIP CLINICAL HISTORY: Fall. Right hip pain. FINDINGS: An AP view of the pelvis with AP and frog-leg views of the right hip are compared to study dated 10/04/2009 and correlated with pelvic CT dated 06/12/2019. The skeletal structures are osteopenic . Bilateral hip arthroplasties are in near-anatomic alignment. No periprosthetic lucency is seen. The re is no radiographic evidence of acute fracture involving the hips or bony pelvis. The sacroiliac ayo ints are normal. The overlying soft tissues are normal as imaged. Phleboliths are observed in the pel vis. Advanced lumbosacral spondylosis is partially visualized. There is atherosclerotic calcification of the femoral arteries. IMPRESSION: 1. There is no radiographic evidence of acute fracture involving the hips or bony pelvis. 2. Bilateral hip arthroplasties are in place. Electronically signed by: Ananda Sweeney M.D. 06/14/2020 2:59 PM
--- NOTE | 2020-06-14 15:04 | XRay Report ---
AP CHEST WITH RIGHT-SIDED RIB SERIES CLINICAL HISTORY: Fall. Right-sided chest wall pain. FINDINGS: An AP upright chest radiograph with 4 additional views from a right-sided rib series is com pared to study dated 06/13/2019. Correlation is made with chest CT dated 03/27/2018. The AP views degrad ed by apical lordotic positioning. The heart is enlarged noting atherosclerotic calcification of the thoracic aorta. The pulmonary vasculature is noncongested. Chronic interstitial thickening is similar to previous. Atelectasis is noted at the lung bases. The lungs and pleural spaces are otherwise vesta r. No pneumothorax is seen. The skeletal structures are osteopenic. There are right anterior 6th and 7th rib fractures. The 7th rib fractures mildly displaced. The remainder of the bony thorax is grossl y intact. Advanced arthritic change is noted in the shoulders. IMPRESSION: 1. Cardiomegaly with no acute cardiopulmonary abnormality. 2. Acute right anterior rib fractures as above. ACT 112: Negative or not required by law. Electronically signed by: Ananda Sweeney M.D. 06/14/2020 3:03 PM
--- NOTE | 2020-06-14 15:07 | XRay Report ---
RIGHT HAND 3 VIEWS CLINICAL HISTORY: Fall. Right hand injury. FINDINGS: 3 views of the right hand are compared to study dated 07/05/2016. The skeletal structures ar e osteopenic. No acute fracture is identified. Advanced degenerative narrowing is seen at the radioca rpal articulation where there is bony sclerosis and overgrowth. There is widening between the scaphoi d and the lunate with 8 mm of separation. 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 Moderate osteoarthritic change is seen at the first carpometacarpal joint. Osteoarthri tic change is also seen involving the metacarpophalangeal and interphalangeal joints. Erosive osteoar thritis is seen at the second proximal interphalangeal joint as well as the second and third distal i nterphalangeal joints. Mild diffuse soft tissue edema is noted. Large hooked osteophytes are present arising from the third and fourth metacarpal heads. IMPRESSION: 1. No acute fracture is identified. 2. 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 3. Osteoarthritic/erosive osteoarthritic change as above. Electronically signed by: Ananda Sweeney M.D. 06/14/2020 3:06 PM
[2020-06-14] MEDS ORDERED: OXYCODONE HCL IR 5 MG TAB (IMMEDIATE RELEASE) PO STA ×2 (15:11→21:02)
--- NOTE | 2020-06-14 16:33 | CT Scan Report ---
CT SCAN OF THE BONY PELVIS WITHOUT IV CONTRAST; CT SCAN OF THE RIGHT HIP WITHOUT IV CONTRAST CLINICAL HISTORY: Fall. Right hip pain. COMPARISON STUDY: CT of the pelvis dated 06/12/2019. Hip and pelvic radiographs dated 06/14/2020. TECHNIQUE: CT scan of the bony pelvis is performed from the pelvic inlet to the proximal femora. Add itionally, CT scan of the right hip is performed from the bony pelvis to the proximal femur. Images f or both examinations are reviewed in the axial, sagittal, and coronal planes. IV contrast was not adm inistered for these examinations. A dose lowering technique was utilized adhering to the principles of ALARA. The examination is degraded by streak artifact from bilateral hip arthroplasties. CT DOSE: 1203.06 mGy.cm FINDINGS: The skeletal structures are osteopenic. There is no evidence of fracture involving the hips or bony p chan. Bilateral hip arthroplasties are in place. Cerclage wires are noted in the greater trochanters bilaterally. Lucency around one of the cortical screws transfixing the right acetabular cup suggests loosening. This is similar to the 2018 examination. Expansile lucency involving the left proximal fe mur is unchanged from the 06/12/2019 examination. No destructive bony lesion is clearly seen. The regio nal musculature demonstrates symmetric atrophy. No hematoma is seen. Evaluation of the pelvic viscera is degraded by streak artifact from bilateral hip arthroplasties. Th ere is advanced diverticulosis of the visualized colon. There is wall thickening with pericolonic inf lammation seen involving the distal descending colon consistent with acute diverticulitis. No organiz ed fluid collection is seen to suggest abscess. A normal appendix is noted. An umbilical hernia conta ins a nonobstructed segment of small bowel. The visualized bowel loops show no evidence of obstructio n. The bladder is normal as visualized. The prostate gland is diminutive versus surgically absent. Th ere is no free fluid in the pelvis. There is atherosclerotic calcification of the distal abdominal ao rta and iliac arteries. No pelvic sidewall or inguinal adenopathy is identified. IMPRESSION: 1. Advanced colonic diverticulosis with evidence of acute diverticulitis involving the distal descend ing colon. No organized fluid collection is seen to suggest abscess on this unenhanced examination. 2. There is no evidence of acute fracture involving the hips or bony pelvis. 3. Bilateral hip arthroplasties are in place. 4. Additional chronic osseous findings as above. 5. An umbilical hernia contains a nonobstructed segment of small bowel. ACT 112: Negative or not required by law. Electronically signed by: Ananda Sweeney M.D. 06/14/2020 4:32 PM
[2020-06-14 17:16] LABS: Eosinophils # (auto) 0.01 K/uL (0-0.5); Eosinophils % (auto) 0.1 %; Hematocrit (blood only) 41.5 % (42-52); Hemoglobin 13.8 g/dL (14.0-18.0); Immature Granulocytes # (auto) 0.05 K/uL (0.00-0.02); Immature Granulocytes % (auto) 0.5 %; Lymphocytes % (auto) 21.4 %; Mean Corpuscular Hemoglobin 30.5 pg (25-34); Mean Corpuscular Hgb Conc 33.3 g/dL (32-36); Mean Corpuscular Volume 91.8 fL (80-100); Monocytes # (auto) 1.23 K/uL (0.11-0.59); Monocytes % (auto) 11.4 %; Neutrophils # (auto) 7.18 K/uL (1.4-6.5); Neutrophils % (auto) 66.6 %; Platelet Count 144 K/uL (130-400); RDW Coefficient of Variation 14.2 % (11.5-14.5); RDW Standard Deviation 47.7 fL (36.4-46.3); Red Blood Count 4.52 M/uL (4.7-6.1); White Blood Count 10.77 K/uL (4.8-10.8)
[2020-06-14 17:28] LABS: Partial Thromboplastin Time 27.7 Seconds (21.0-31.0); Prothrombin Time 10.9 Seconds (9.0-12.0)
[2020-06-14 17:36] LABS: Alanine Aminotransferase 41 U/L (12-78); Albumin Level 3.7 gm/dl (3.4-5.0); Aspartate Aminotransferase 25 U/L (15-37); BUN Creatinine Ratio 12.4 (10-20); Blood Urea Nitrogen 14 mg/dl (7-18); Calcium 9.3 mg/dl (8.5-10.1); Carbon Dioxide 30 mmol/L (21-32); Chloride 104 mmol/L (98-107); Est GFR (African American) 68.8; Est GFR (Non-African American) 59.4; Glucose 171 mg/dl (70-99); Potassium 4.2 mmol/L (3.5-5.1); Sodium 141 mmol/L (136-145)
[2020-06-14 17:39] LABS: Albumin Globulin Ratio 0.9 (0.9-2); Alkaline Phosphatase 68 U/L (45-117); Bilirubin,Total 0.5 mg/dl (0.2-1); Total Protein 7.7 gm/dl (6.4-8.2)
--- NOTE | 2020-06-14 17:43 | History & Physical Report ---
Date of Service June 14, 2020 Assessment & Plan (1) Fall: Per , this was a mechanical fall without any syncopal symptoms or loss of consciousness. With two right rib fractures, but no other injuries found. - Pain control in the ribs and hips - Lidocaine patch; acetaminophen. Patient not in significant pain on my interview so will attempt to avoid opiates. - PT/OT/CM for possible rehab placement. (2) Diverticulitis: Incidentally seen on pelvic CT on 06/14. No abscess seen. Mild/minimal symptoms of general "stomach ache" and subjective fevers. Possibly minimal symptoms due to his immunosuppression from prednisone. - Start Unasyn - Given minimal symptoms, will not restrict diet. (3) Heart failure with preserved ejection fraction: Chronic diastolic heart failure. Echo in 08/2017 showed EF 50-55%. reports legs are "always" swollen (ie have been for years), but he overall is breathing comfortably and does not have signs of hypervolemia on exam. - Continue beta-domi - Continue home Lasix 60 mg PO daily (4) CAD (coronary artery disease): No chest pain on interview. - Continue beta-domi, Imdur (5) Advanced COPD: Follows with Dr. Goodrich. Last seen in April and was quite stable at that time. No shortness of breath on exam today. No wheezing. - Continue home budesonide, tiotropium - Continue prednisone (this is not mentioned in Dr. Goodrich's last note, but was renewed by him in 05/2020, so I assume it is maintenance for his COPD). - DuoNebs PRN (6) Hypertension: BP was 130/75 in the ED. - Continue home metoprolol, Imdur (7) Diabetes mellitus: A1c was 7.1% in 05/2020. - Hold oral home meds - Sliding scale insulin (8) Obstructive sleep apnea: Long-standing diagnosis, but not tolerate of CPAP even at home. Uses nightly O2. - O2 at night (9) Dementia, vascular: Slowly declining per notes. Has not wanted to use meds in the past. - Delirium prevention strategies (10) DVT prophylaxis: Had a PE in 2016 and was Eliquis which was stopped due to rectal bleeding in 06/2019. Given this history, he is likely high-risk for VTE. - Lovenox 40 mg SQ daily History of Present Illness Primary Care Provider: Rubens Quiñonez, DO 80yo M w/ hx of HTN, CAD, DM who presents after a fall at home. He has significant dementia and does not recall the incident, but his relates that he was on the porch eating lunch. After lunch, he got up to go inside and tripped on the lip/threshold of the door. She denies that he reported any dizziness, lightheadedness, or other presyncopal symptoms. She does not feel he lost consciousness or struck his head. Due to pain in the hip and in the right chest, EMS was called. In the ED, he was found to have two right rib fractures. No other noted injuries. However, pelvic CT incidentally found acute diverticulitis involving the distal descending colon without any sign of abscess. His reports he has felt "hot" over the last week, but they have not checked a temperature. He has also noted a "stomach ache" over the last 3 days, but no real focal pain. At present, he is in no distress. He reports some mild discomfort in the right chest wall area, but no abdominal pain. No other reported symptoms. Allergies Allergy/AdvReac Type Severity Reaction Status Date / Time ibuprofen Allergy Mild ULCERS Verified 06/14/20 14:30 Home Medications Home Medications Medication Instructions Recorded Confirmed Type ipratropium-albuterol 3 ml INHALATION Q4H PRN 12/21/18 06/14/20 History nitroglycerin [Nitrostat] 0.4 mg SUBLINGUAL DIRECTED 12/21/18 06/14/20 History blood sugar diagnostic #10 ea 07/15/19 06/04/20 History lancets 33 gauge #100 ea 07/15/19 06/04/20 History budesonide 0.5 mg/2 mL suspension 2 ml INH BID #120 ml 08/22/19 06/14/20 Rx for nebulization metoprolol tartrate 50 mg tablet 25 mg PO BID #90 tab 03/03/20 06/14/20 Rx cholecalciferol (vitamin D3) 25 25 mcg PO QAM 03/04/20 06/14/20 History mcg (1,000 unit) capsule furosemide 40 mg tablet 60 mg PO QAM tab 03/04/20 06/14/20 History vitamin B complex 1 tab PO HS 03/04/20 06/14/20 History glyburide 2.5 mg tablet 2.5 mg PO BID #180 tab 04/06/20 06/14/20 Rx metformin 500 mg tablet,extended 500 mg PO BID #180 tab 05/31/20 06/14/20 Rx release 24 hr dextromethorphan-guaifenesin 10 ml PO Q6H PRN 06/14/20 06/14/20 History [Guaifenesin-DM] isosorbide mononitrate 60 mg PO QAM 06/14/20 06/14/20 History montelukast [Singulair] 10 mg PO HS 06/14/20 06/14/20 History prednisone 5 mg PO QAM 06/14/20 06/14/20 History tiotropium bromide [Spiriva with 1 cap INHALATION HS 06/14/20 06/14/20 History HandiHaler] Past Med/Surg History Medical History Advanced COPD Anemia Anxiety CAD (coronary artery disease) (10/04/13) Colonoscopy planned 06/13/[address] Stanton Dementia, vascular Diabetes mellitus Diverticulosis Generalized osteoarthritis GERD (gastroesophageal reflux disease) Heart failure with preserved ejection fraction Hyperlipidemia Hypertension Inguinal hernia b/l? Leg edema Moderate persistent asthma Monoclonal B-cell lymphocytosis Obstructive sleep apnea moderate [03/2017] Periodic limb movement disorder Pulmonary emboli Sensorineural hearing loss (SNHL) of both ears Splenomegaly (12/19/12) Surgical History History of bilateral hip replacements History of prostatectomy History of tonsillectomy S/P colonoscopy S/P hernia repair S/P vasectomy Family History Family/Other Myocardial infarction Stroke Sister Diabetes Mother Cardiac disorder Myocardial infarction Grandmother Cardiac disorder Hypertension Grandfather Cardiac disorder Hypertension Denies family history of Esophageal cancer Ovarian cancer Prostate cancer Crohn's disease Breast cancer Colorectal cancer Social History Smoking Status: Former smoker Hx Alcohol Use: Yes Alcohol type: beer Hx Substance Use: No Preferred Language: Wolof Communication Ability: Impaired Visual Impairment: No Limitations Hearing Ability: Hard of Hearing Professor Of Architecture Required: No Beliefs That Will Affect Care: None marital status: Current Living Situation: Spouse current occupational status: retired Other Information That Helps Us Care for You: No Feels Safe at Home: Yes Safety Concerns: Feels Safe At This Time Childhood Exposure to Second-Hand Smoke: No Dental Care, Regularly: Yes Physical Activity Frequency: 5-6 Times per Week Seatbelt Use: always Sunscreen Use: No Review of Systems Review of Systems: All systems reviewed & are unremarkable except as noted in HPI & below Physical Exam Constitutional: WD/WN, vitals as above Eyes: EOM intact bilaterally; no conjunctival abnormality ENMT: external ear and nose normal, oropharynx normal Neck: trachea midline, no thyromegaly normal visual inspection Respiratory: normal respiratory effort, lungs clear to auscultation no respiratory distress Cardiovascular: RRR, no murmur, no edema Gastrointestinal (Abdomen): Inspection/Auscultation: abdomen normal to inspection and normal bowel sounds; abdomen not distended Percussion/Palpation: abdomen soft; abdomen nontender, no guarding and abdomen not rigid Musculoskeletal: no cyanosis or clubbing, extremities motor strength 5/5 Skin: no rashes, warm and dry Neurologic: moves all extremities and awake Psychiatric: Orientation: alert, oriented to person and cooperative Results & Data Results & Data ([facility]) Vital Signs (Past 12 Hours) Vital Signs Temp Pulse Pulse Resp BP BP Pulse Ox 06/14/20 17:00 85 18 93 06/14/20 15:48 80 20 132/77 93 06/14/20 14:00 78 24 142/72 H 91 06/14/20 13:49 80 23 152/77 H 93 06/14/20 13:27 37.1 C 80 18 120/73 96 PG Care Time/CCT Total # of Minutes Spent Total Time Spent with Patient: Total time spent is greater than 50% in coordination of care (as documented) at patient's floor/unit and/or counseling patient: Coding Level of Care Code 52843 OBS Care - Level 3 Diagnoses Fall W19.XXXA Diverticulitis K57.92 Heart failure with preserved ejection fraction I50.30 CAD (coronary artery disease) I25.118 Coronary Disease-Associated Artery/Lesion type: al[place]q artery [place] vs. transplanted heart: al[place]iiq heart Associated angina: with stable angina Advanced COPD J44.9 Hypertension I10 Hypertension type: essential hypertension Diabetes mellitus E11.9 Diabetes mellitus type: type 2 Diabetes mellitus senior care insulin use: without senior care use Diabetes mellitus complication status: without complication Obstructive sleep apnea G47.33 Dementia, vascular F01.50 DVT prophylaxis Z29.9 (1) Diabetes mellitus Diabetes mellitus type: type 2 Diabetes mellitus senior care insulin use: without intermediate teacher use Diabetes mellitus complication status: without complication Qualified Code(s): E11.9 - Type 2 diabetes mellitus without complications (2) CAD (coronary artery disease) Coronary Disease-Associated Artery/Lesion type: [place]q artery [place] vs. transplanted heart: [place]q heart Associated angina: with stable angina Qualified Code(s): I25.118 - Atherosclerotic heart disease of [place] coronary artery with other forms of angina pectoris (3) Hypertension Hypertension type: essential hypertension Qualified Code(s): I10 - Essential (primary) hypertension
[2020-06-14] MEDS ORDERED: GLUCOSE 10 TABS/TUBE PO PRN (18:13)
[2020-06-14] MEDS ORDERED: CARBOHYDRATES FOR HYPOGLYCEMIA PO PRN (18:13)
[2020-06-14] MEDS ORDERED: GLUCOSE 40% GEL 15 GM TUBE PO PRN (18:13)
[2020-06-14] MEDS ORDERED: DEXTROSE 50% 50 ML SYRINGE IV PRN (18:13)
[2020-06-14] MEDS ORDERED: ONDANSETRON INJ 2 MG/ML 2 ML VIAL IV PRN (18:13)
[2020-06-14] MEDS ORDERED: GLUCAGON FOR INJ 1 MG VIAL SQ PRN (18:13)
[2020-06-14] MEDS: ACETAMINOPHEN 325 MG TAB PO PRN ×2 (18:40→23:41)
[2020-06-14] MEDS ORDERED: ALBUT/IPRATROP 3MG/0.5MG NEB 3 ML VIAL INH PRN (19:00)
[2020-06-14] MEDS: LIDOCAINE 5% 1 PATCH TD SCH (19:07)
[2020-06-14] MEDS: BUDESONIDE 0.5 MG/2 ML VIAL (PULMICORT) INH SCH (19:29)
[2020-06-14] MEDS: AMPICILLIN/SULBACTAM SOD 3,000 MG in 0.9 % SODIUM CHLORIDE 100 ML IV SCH ×2 (19:55→23:42)
[2020-06-14] MEDS: MONTELUKAST SODIUM 10 MG TABLET PO SCH (21:23)
[2020-06-14] MEDS: METOPROLOL TARTRATE 25 MG TAB PO SCH (21:23)
[2020-06-14] MEDS: INSULIN ASPART 100 UNITS/ML 3 ML PEN SC SCH (21:24)
[2020-06-15 05:42] LABS: Hematocrit (blood only) 41.4 % (42-52); Hemoglobin 13.3 g/dL (14.0-18.0); Mean Corpuscular Hgb Conc 32.1 g/dL (32-36); Mean Corpuscular Volume 93.5 fL (80-100); Mean Platelet Volume 9.5 fL (7.4-10.4); Platelet Count 135 K/uL (130-400); RDW Coefficient of Variation 14.3 % (11.5-14.5); RDW Standard Deviation 48.8 fL (36.4-46.3); Red Blood Count 4.43 M/uL (4.7-6.1); White Blood Count 8.52 K/uL (4.8-10.8)
[2020-06-15] MEDS: AMPICILLIN/SULBACTAM SOD 3,000 MG in 0.9 % SODIUM CHLORIDE 100 ML IV SCH ×4 (06:01→23:31)
[2020-06-15] MEDS: ACETAMINOPHEN 325 MG TAB PO PRN ×4 (06:05→23:32)
[2020-06-15 06:25] LABS: Est GFR (African American) 96.6; Potassium 3.8 mmol/L (3.5-5.1)
[2020-06-15 06:26] LABS: Calcium 8.9 mg/dl (8.5-10.1); Creatinine Clr Calc Pharmacy 69.3 ml/min; Est GFR (Non-African American) 83.4; Magnesium 1.8 mg/dl (1.8-2.4)
--- NOTE | 2020-06-15 07:37 | Hospitalist Progress Note ---
Date of Service June 15, 2020 Assessment & Plan (1) Fall: Per this is an unprovoked fall, mechanical in nature, no syncopal episode, no loss of conscious, no postictal state. Imaging in the emergency department demonstrated 2 right rib fractures but no other injuries. After conversation with the patient's he will definitely need PT/OT/case management evaluation ideally he would have home physical therapy or brief stay at SNF. -Pain well controlled at present with lidocaine and acetaminophen, would avoid opiates if possible - PT/OT/CM for possible rehab placement. (2) Diverticulitis: Incidental finding on pelvic CT on admission on 06/14. Patient is for the most part asymptomatic, endorsing a tinge of left lower abdominal pain. Given his minimal symptoms will initiate medical therapy with antibiotics and not restrict diet. - Start Unasyn -Convert to p.o. prior to discharge (3) Heart failure with preserved ejection fraction: History of chronic diastolic heart failure last echo was 08/2017 demonstrating an ejection fraction of 50 to 55%. Patient is currently asymptomatic at present, negative pedal edema. His reports that his legs are "always swollen and have been for years. He has been breathing comfortably since admission and does not have signs of fluid overload. - Continue beta-domi - Continue home Lasix 60 mg PO daily -Monitor for signs and symptoms of fluid overload, consider chest x-ray (4) CAD (coronary artery disease): Denies chest pain - Continue beta-domi, Imdur (5) Advanced COPD: Managed by Dr. goodrich, last seen in April and was stable at that time. Has not endorsed shortness of breath or other COPD symptoms since admission, continued home meds. - Continue home budesonide, tiotropium - Continue prednisone (this is not mentioned in Dr. Goodrich's last note, but was renewed by him in 05/2020, so I assume it is maintenance for his COPD). - DuoNebs PRN (6) Hypertension: BP was 130/75 in the ED. - 153/85 this a.m. - Continue home metoprolol, Imdur (7) Diabetes mellitus: A1c was 7.1% in 05/2020. - Holding oral home meds - Glycemic consult placed (8) Obstructive sleep apnea: Long-standing diagnosis, but not tolerate of CPAP even at home. Uses nightly O2. - O2 at night (9) Dementia, vascular: Slowly declining per notes. Has not wanted to use meds in the past. - Delirium prevention strategies - Open windows blinds lights during the day, quiet dark room at night - No history of agitation, if patient becomes agitated consider one-to-one versus chemical sedation (10) DVT prophylaxis: Had a PE in 2017 and was Eliquis which was stopped due to rectal bleeding in 06/2019. Given this history, he is likely high-risk for VTE. - Lovenox 40 mg SQ daily FENa: Heart healthy type II diabetic diet, judicious use of fluids Code Status: Full DVT PPX: Lovenox PT/OT: Ordered Dispo: Huber Vieira MD PGY 2, FCM This chart was completed utilizing [employer] voice recognition software. Grammatical errors, random word insertions, pronoun errors, and in complete sentences are an occasional consequence of the system. Any questions or concerns about the content, text, or information contained within the body of this dictation should be addressed directly to the physician for clarification. Admission and Anticipated Discharge Date Admission Date: June 14, 2020 Subjective Patient lying in bed in no acute distress with his at his bedside. Patient was evaluated for mental status and was AAO x0. Patient reports no significant interval history, reports sleeping well overnight, voiding, stooling, tolerating his diet and pain is well controlled. Patient endorses intermittent belly pain that is dull in nature, however he states this is the usual for him. Remainder of the history was mostly obtained from his . She reports he has been in his normal state of health recently, despite his declining mentation. She reports he she is responsible for the majority of his ADLs including medications etc. She does not feel overwhelmed and wishes for him to return home. She appears cognitively intact, and able to adequately care for her . They have a son who lives in the area and a granddaughter, approximately 2 times per week the patient's will babysit her grandchildren. The reported for period of time her was receiving home PT and she felt this was very helpful. He made significant improvement during that time and his pain improved. Currently she reports he does have some difficulty ambulating, and also is difficult to encourage him to get up and move around. She is concerned about his balance. His did report occasional loose stools recently but otherwise no significant medical issues, no fevers no chills no nausea no vomiting otherwise all questions were answered, no acute concerns Review of Systems Review of Systems: All systems reviewed & are unremarkable except as noted in HPI & below Physical Exam Physical Exam: General: In no acute distress HEENT: Normocephalic atraumatic Neck: Normal to visual inspection, trachea midline Cardiac: Palpated pulses, symmetrical bilaterally, a bit soft, appeared to be in regular rate and rhythm to ri Respiratory: Symmetrical chest expansion bilaterally, no increased work of breathing, nonlabored breathing, able to speak in complete sentences GI: Soft, nontender, nondistended, bit of pain in left lower quadrant MSK: Moves all extremities Skin: Cool dry and intact Neuro: Alert and oriented x0 although does not and conversive Psych: Calm, cooperative Results & Data Results & Data ([facility]) Vital Signs (Past 12 Hours) Vital Signs Temp Pulse Resp BP Pulse Ox 06/15/20 00:00 80 95 06/14/20 23:13 37.1 C 77 18 169/88 H 91 06/14/20 21:21 91 H 124/78 Laboratory Results 06/15/20 06/15/20 06/15/20 Range/Units 08:08 05:30 05:30 WBC 8.52 (4.8-10.8) K/uL RBC 4.43 L (4.7-6.1) M/uL Hgb 13.3 L (14.0-18.0) g/dL Hct 41.4 L (42-52) % MCV 93.5 (80-100) fL MCH 30.0 (25-34) pg MCHC 32.1 (32-36) g/dL RDW Std Deviation 48.8 H (36.4-46.3) fL RDW Coeff of Haley 14.3 (11.5-14.5) % Plt Count 135 (130-400) K/uL MPV 9.5 (7.4-10.4) fL Immature Gran % (Auto) % Neut % (Auto) % Lymph % (Auto) % Mccormick % (Auto) % Eos % (Auto) % Baso % (Auto) % Neut # (Auto) (1.4-6.5) K/uL Lymph # (Auto) (1.2-3.4) K/uL Mccormick # (Auto) (0.11-0.59) K/uL Eos # (Auto) (0-0.5) K/uL Baso # (Auto) (0-0.2) K/uL Immature Gran # (Auto) (0.00-0.02) K/uL PT (9.0-12.0) Seconds INR (0.9-1.1) APTT (21.0-31.0) Seconds PTT Ratio Sodium 140 (136-145) mmol/L Potassium 3.8 (3.5-5.1) mmol/L Chloride 105 (98-107) mmol/L Carbon Dioxide 28 (21-32) mmol/L Anion Gap 7.0 (3-11) BUN 12 (7-18) mg/dl Creatinine 0.81 D (0.6-1.4) mg/dl Est Cr Clr Drug Dosing 69.3 Est GFR ( Amer) 96.6 Est GFR (Non-Af Amer) 83.4 BUN/Creatinine Ratio 15.0 (10-20) Glucose 135 H (70-99) mg/dl POC Glucose 138 H (70-99) mg/dl Calcium 8.9 (8.5-10.1) mg/dl Magnesium 1.8 (1.8-2.4) mg/dl Total Bilirubin (0.2-1) mg/dl AST (15-37) U/L ALT (12-78) U/L Alkaline Phosphatase (45-117) U/L Total Protein (6.4-8.2) gm/dl Albumin (3.4-5.0) gm/dl Globulin (2.5-4.0) gm/dl Albumin/Globulin Ratio (0.9-2) 06/14/20 06/14/20 06/14/20 Range/Units 20:54 18:44 17:00 WBC 10.77 (4.8-10.8) K/uL RBC 4.52 L (4.7-6.1) M/uL Hgb 13.8 L (14.0-18.0) g/dL Hct 41.5 L (42-52) % MCV 91.8 (80-100) fL MCH 30.5 (25-34) pg MCHC 33.3 (32-36) g/dL RDW Std Deviation 47.7 H (36.4-46.3) fL RDW Coeff of Haley 14.2 (11.5-14.5) % Plt Count 144 (130-400) K/uL MPV 10.0 (7.4-10.4) fL Immature Gran % (Auto) 0.5 % Neut % (Auto) 66.6 % Lymph % (Auto) 21.4 % Mccormick % (Auto) 11.4 % Eos % (Auto) 0.1 % Baso % (Auto) 0.0 % Neut # (Auto) 7.18 H (1.4-6.5) K/uL Lymph # (Auto) 2.30 (1.2-3.4) K/uL M[place]ormick # (Auto) 1.23 H (0.11-0.59) K/uL Eos # (Auto) 0.01 (0-0.5) K/uL Baso # (Auto) 0.00 (0-0.2) K/uL Immature Gran # (Auto) 0.05 H (0.00-0.02) K/uL PT (9.0-12.0) Seconds INR (0.9-1.1) APTT (21.0-31.0) Seconds PTT Ratio Sodium (136-145) mmol/L Potassium (3.5-5.1) mmol/L Chloride (98-107) mmol/L Carbon Dioxide (21-32) mmol/L Anion Gap (3-11) BUN (7-18) mg/dl Creatinine (0.6-1.4) mg/dl Est Cr Clr Drug Dosing Est GFR ( Amer) Est GFR (Non-Af Amer) BUN/Creatinine Ratio (10-20) Glucose (70-99) mg/dl POC Glucose 154 H 168 H (70-99) mg/dl Calcium (8.5-10.1) mg/dl Magnesium (1.8-2.4) mg/dl Total Bilirubin (0.2-1) mg/dl AST (15-37) U/L ALT (12-78) U/L Alkaline Phosphatase (45-117) U/L Total Protein (6.4-8.2) gm/dl Albumin (3.4-5.0) gm/dl Globulin (2.5-4.0) gm/dl Albumin/Globulin Ratio (0.9-2) 06/14/20 06/14/20 Range/Units 17:00 17:00 WBC (4.8-10.8) K/uL RBC (4.7-6.1) M/uL Hgb (14.0-18.0) g/dL Hct (42-52) % MCV (80-100) fL MCH (25-34) pg MCHC (32-36) g/dL RDW Std Deviation (36.4-46.3) fL RDW Coeff of Haley (11.5-14.5) % Plt Count (130-400) K/uL MPV (7.4-10.4) fL Immature Gran % (Auto) % Neut % (Auto) % Lymph % (Auto) % M[place]ormick % (Auto) % Eos % (Auto) % Baso % (Auto) % Neut # (Auto) (1.4-6.5) K/uL Lymph # (Auto) (1.2-3.4) K/uL [place]ormick # (Auto) (0.11-0.59) K/uL Eos # (Auto) (0-0.5) K/uL Baso # (Auto) (0-0.2) K/uL Immature Gran # (Auto) (0.00-0.02) K/uL PT 10.9 (9.0-12.0) Seconds INR 1.0 (0.9-1.1) APTT 27.7 (21.0-31.0) Seconds PTT Ratio 1.0 Sodium 141 (136-145) mmol/L Potassium 4.2 (3.5-5.1) mmol/L Chloride 104 (98-107) mmol/L Carbon Dioxide 30 (21-32) mmol/L Anion Gap 7.0 (3-11) BUN 14 (7-18) mg/dl Creatinine 1.15 (0.6-1.4) mg/dl Est Cr Clr Drug Dosing Not Reportable Est GFR ( Amer) 68.8 Est GFR (Non-Af Amer) 59.4 BUN/Creatinine Ratio 12.4 (10-20) Glucose 171 H (70-99) mg/dl POC Glucose (70-99) mg/dl Calcium 9.3 (8.5-10.1) mg/dl Magnesium (1.8-2.4) mg/dl Total Bilirubin 0.5 (0.2-1) mg/dl AST 25 (15-37) U/L ALT 41 (12-78) U/L Alkaline Phosphatase 68 (45-117) U/L Total Protein 7.7 (6.4-8.2) gm/dl Albumin 3.7 (3.4-5.0) gm/dl Globulin 4.0 (2.5-4.0) gm/dl Albumin/Globulin Ratio 0.9 (0.9-2) Medications Administered Current Inpatient Medications Acetaminophen (Acetaminophen 325 Mg Tab) 650 mg PO Q4H PRN PRN Reason: pain/fever Stop: 07/14/20 18:29 Last Admin: 06/15/20 10:32 Dose: 650 mg Documented by: Albuterol (Albut/Ipratrop 3mg/0.5mg Neb 3 Ml Vial) 3 ml INH Q4R PRN PRN Reason: Shortness Of Breath Or Wheezin Stop: 07/14/20 18:59 Budesonide (Budesonide 0.5 Mg/2 Ml Vial (Pulmicort)) 0.5 mg INH BIDR SAM Stop: 07/14/20 18:59 Last Admin: 06/15/20 07:46 Dose: 0.5 mg Documented by: Dextrose (Dextrose 50% 50 Ml Syringe) 25 - 50 ml IV UD PRN; Protocol PRN Reason: Hypoglycemia Protocol Stop: 07/14/20 18:12 Enoxaparin Sodium (Enoxaparin Inj 40 Mg/0.4 Ml Syr) 40 mg SQ QAM SAM Stop: 07/15/20 08:59 Last Admin: 06/15/20 09:15 Dose: 40 mg Documented by: Furosemide (Furosemide 20 Mg Tab) 60 mg PO QAM SAM Stop: 07/15/20 08:59 Last Admin: 06/15/20 09:11 Dose: 60 mg Documented by: Glucagon (Glucagon For Inj 1 Mg Vial) 1 mg SQ UD PRN; Protocol PRN Reason: Hypoglycemia Protocol Stop: 07/14/20 18:12 Glucose (Glucose 10 Tabs/Tube) 4 - 8 tabs PO UD PRN; Protocol PRN Reason: Hypoglycemia Protocol Stop: 07/14/20 18:12 Glucose (Glucose 40% Gel 15 Gm Tube) 15 - 30 gm PO UD PRN; Protocol PRN Reason: Hypoglycemia Protocol Stop: 07/14/20 18:12 Ampicillin Sodium/Sulbactam Sodium 3,000 mg/ Sodium Chloride 108 mls @ 200 mls/hr IV Q6H [facility]; Protocol Stop: 06/24/20 18:29 Last Infusion: 06/15/20 06:43 Dose: Infused Documented by: Insulin Aspart (Insulin Aspart 100 Units/Ml 3 Ml Pen) 0 units SC ACHS [facility] Stop: 07/14/20 20:59 Last Admin: 06/15/20 09:12 Dose: 9 units Documented by: Isosorbide Mononitrate (Isosorbide Mccormick Extended Rel 60 Mg Tabcr) 60 mg PO QAM [facility] Stop: 07/15/20 08:59 Last Admin: 06/15/20 09:11 Dose: 60 mg Documented by: Lidocaine (Lidocaine 5% 1 Patch) 1 patch TD DAILY@1900 [facility] Stop: 07/14/20 18:59 Last Admin: 06/14/20 19:07 Dose: 1 patch Documented by: Metoprolol Tartrate (Metoprolol Tartrate 25 Mg Tab) 25 mg PO BID [facility] Stop: 07/14/20 20:59 Last Admin: 06/15/20 09:11 Dose: 25 mg Documented by: Miscellaneous (Carbohydrates For Hypoglycemia ) 15 - 30 gm PO UD PRN PRN Reason: Hypoglycemia Protocol Stop: 07/14/20 18:12 Miscellaneous (Remove Lidoderm Patch) 1 ea N/A DAILY@0700 [facility] Stop: 07/15/20 18:58 Miscellaneous Information (Pharmacy Glycemic Mgmt Consult) 1 ea N/A UD PRN PRN Reason: Consult Stop: 07/15/20 08:03 Montelukast Sodium (Montelukast Sodium 10 Mg Tablet) 10 mg PO HS [facility] Stop: 07/14/20 20:59 Last Admin: 06/14/20 21:23 Dose: 10 mg Documented by: Ondansetron HCl (Ondansetron Inj 2 Mg/Ml 2 Ml Vial) 4 mg IV Q4H PRN PRN Reason: Nausea Stop: 07/14/20 18:12 Prednisone (Prednisone 5 Mg Tab) 5 mg PO QAM [facility] Stop: 07/15/20 08:59 Last Admin: 06/15/20 09:11 Dose: 5 mg Documented by: Umeclidinium [place] (Umeclidinium [place] 62.5mcg/Blister 7 Puffs/Inhaler) 1 puffs INH DAILY SAM; Protocol Stop: 07/15/20 08:59 Last Admin: 06/15/20 09:10 Dose: 1 puffs Documented by: Resident Activity Tracking Resident Involvement: Resident Care Provided Care Provided: Adult Hospital Medicine (1) Diabetes mellitus Diabetes mellitus complication status: without complication Diabetes mellitus half-way insulin use: without terminologist use Diabetes mellitus type: type 2 Qualified Code(s): E11.9 - Type 2 diabetes mellitus without complications (2) CAD (coronary artery disease) Associated angina: with stable angina Coronary Disease-Associated Artery/Lesion type: [place] artery [place] vs. transplanted heart: [place] heart Qualified Code(s): I25.118 - Atherosclerotic heart disease of [place] coronary artery with other forms of angina pectoris (3) Hypertension Hypertension type: essential hypertension Qualified Code(s): I10 - Essential (primary) hypertension
[2020-06-15] MEDS: BUDESONIDE 0.5 MG/2 ML VIAL (PULMICORT) INH SCH ×2 (07:46→19:26)
[2020-06-15] MEDS ORDERED: PHARMACY GLYCEMIC MGMT CONSULT PRN (08:04)
--- NOTE | 2020-06-15 08:34 | Pharmacy Report ---
Glycemic Control Consultation - Date of Service June 15, 2020 - Scope Scope: Glycemic Pharmacist consulted for glycemic control and to write orders per [facility] inpatient glycemic control protocol. - Objective Weight: 92.9 kg Accuchecks BSG (last 24hrs): 06/14/20 06/14/20 06/14/20 17:00 18:44 20:54 Glucose 171 H POC Glucose 168 H 154 H 06/15/20 06/15/20 05:30 08:08 Glucose 135 H POC Glucose 138 H Laboratory Data (last 24hrs): 06/14/20 06/15/20 17:00 05:30 Potassium 4.2 3.8 Carbon Dioxide 30 28 Anion Gap 7.0 7.0 Creatinine 1.15 0.81 D Est Cr Clr Drug Dosing Not Reportable 69.3 - Recent Pertinent Medications Outpatient Anti-diabetic Regimen: * Glyburide 2.5 mg PO BID * Metformin 500 mg PO BID * Chronic prednisone 5 mg PO daily * A1c = 7.1 % (06/04/20) The patient is currently receiving: * Basal insulin: None * Correctional Insulin: Novolog Correction per scale ACHS Goal Range: Low 100 mg/dL - High 140 mg/dL Correction Factor: 25 mg/dL/unit * Prandial insulin: Per carb ratio of 1 unit per 12 grams CHO consumed * Oral Agents: On hold Risk Factors for Insulin Resistance: * Steroids: Prednisone 5 mg PO daily (home dose) * Infection: Unasyn for possible diverticulitis * Diet: T2DM - Assessment & Plan Assessment & Plan: ASSESSMENT: * TB is an 80 year old male who presented to [facility] ED on 06/14/2020 following a fall * Patient found to have two rib fractures - no other evidence of acute fractures * Pelvic/hip CTs incidentally revealed evidence of acute diverticulitis - receiving IV Unasyn currently * Pertinent PMH includes HFpEF, vascular dementia, BISI, and advanced COPD (requiring chronic prednisone 5 mg PO daily) * BSG of 168 mg/dL on admission * Fasting BSG of 138 mg/dL with no basal insulin - will give low-dose Lantus today * HbA1c of 7.1% demonstrates reasonable outpatient glycemic control * Reasonable goal for this patient would be < 8% given age, dementia, and fall risk * Pre-lunch BSG of 189 mg/dL - will slightly tighten CR with lunch PLAN FOR INPATIENT GLYCEMIC CONTROL: * Holding outpatient oral diabetes medications (glyburide and metformin) * Basal insulin * Lantus 5 units x 1 ordered at lunchtime * Bolus insulin * NovoLog per scale ACHS or Q6hrs while NPO * Goal Range: Low 110 mg/dL - High 150 mg/dL * Correction Factor: 25 mg/dL/unit * Nutritional / Prandial insulin per carb ratio of 1 unit per 7 grams CHO consumed * Please note that the plan above was derived based on current level of insulin resistance and hospital stress. These recommendations are appropriate for inpatient admission only. Plan of care upon discharge will need to be reassessed to avoid potential outpatient hypo/hyperglycemia. Thank you.
[2020-06-15] MEDS ORDERED: FUROSEMIDE 20 MG TAB PO SCH (09:00)
[2020-06-15] MEDS: UMECLIDINIUM BROMIDE 62.5MCG/BLISTER 7 PUFFS/INHALER INH SCH (09:10)
[2020-06-15] MEDS: ISOSORBIDE MONO EXTENDED REL 60 MG TABCR PO SCH (09:11)
[2020-06-15] MEDS: predniSONE 5 MG TAB PO SCH (09:11)
[2020-06-15] MEDS: METOPROLOL TARTRATE 25 MG TAB PO SCH ×2 (09:11→21:23)
[2020-06-15] MEDS: FUROSEMIDE 20 MG TAB PO SCH (09:11)
[2020-06-15] MEDS: INSULIN ASPART 100 UNITS/ML 3 ML PEN SC SCH ×4 (09:12→21:25)
[2020-06-15] MEDS: ENOXAPARIN INJ 40 MG/0.4 ML SYR SQ SCH (09:15)
[2020-06-15] MEDS: POTASSIUM CHLORIDE 20 MEQ TABCR PO SCH ×2 (09:50→10:31)
[2020-06-15] MEDS ORDERED: INSULIN GLARGINE SOLOSTAR 100 UNITS/ML 3 ML PEN SC ONE (12:45)
[2020-06-15] MEDS: DICLOFENAC SOD 1% GEL 100 GM TUBE EXT SCH ×2 (17:21→23:32)
--- NOTE | 2020-06-15 18:06 | Electrocardiogram Report ---
Test Reason : Blood Pressure : / mmHG Vent. Rate : 087 BPM Atrial Rate : 087 BPM P-R Int : 160 ms QRS Dur : 082 ms QT Int : 366 ms P-R-T Axes : 019 -28 032 degrees QTc Int : 440 ms Normal sinus rhythm Normal ECG When compared with ECG of 12-JUN-2019 16:22, Premature atrial complexes are no longer Present Confirmed by Jaime Menjivar ([id number]) on 06/15/2020 6:05:40 PM Referred By: REFERRED SELF Confirmed By:Trey Menjivar
[2020-06-15] MEDS: LIDOCAINE 5% 1 PATCH TD SCH (20:04)
[2020-06-15] MEDS: MONTELUKAST SODIUM 10 MG TABLET PO SCH (21:23)
[2020-06-16] MEDS: AMPICILLIN/SULBACTAM SOD 3,000 MG in 0.9 % SODIUM CHLORIDE 100 ML IV SCH (06:11)
[2020-06-16] MEDS: DICLOFENAC SOD 1% GEL 100 GM TUBE EXT SCH ×2 (06:11→11:06)
[2020-06-16] MEDS: BUDESONIDE 0.5 MG/2 ML VIAL (PULMICORT) INH SCH (07:07)
--- NOTE | 2020-06-16 08:08 | Hospitalist Progress Note ---
Date of Service June 16, 2020 Assessment & Plan (1) Fall: Per this is an unprovoked fall, mechanical in nature, no syncopal episode, no loss of conscious, no postictal state. Imaging in the emergency department demonstrated 2 right rib fractures but no other injuries. After conversation with the patient's he will definitely need PT/OT/case management evaluation ideally he would have home physical therapy or brief stay at SNF. -Pain well controlled at present with lidocaine and acetaminophen, would avoid opiates if possible - PT/OT/CM recommend rehab awaiting placement (2) Diverticulitis: Incidental finding on pelvic CT on admission on 06/14. Patient is for the most part asymptomatic, endorsing a tinge of left lower abdominal pain. Given his minimal symptoms will initiate medical therapy with antibiotics and not restrict diet. -Converted unasyn to Augmentin day 11/21 ABX (3) Heart failure with preserved ejection fraction: History of chronic diastolic heart failure last echo was 08/2017 demonstrating an ejection fraction of 50 to 55%. Patient is currently asymptomatic at present, negative pedal edema. His reports that his legs are "always swollen and have been for years. He has been breathing comfortably since admission and does not have signs of fluid overload. - Continue beta-domi - Continue home Lasix 60 mg PO daily - Monitor for signs and symptoms of fluid overload, consider chest x-ray (4) CAD (coronary artery disease): Denies chest pain - Continue beta-domi, Imdur (5) Advanced COPD: Managed by Dr. goodrich, last seen in April and was stable at that time. Has not endorsed shortness of breath or other COPD symptoms since admission, continued home meds. - Continue home budesonide, tiotropium - Continue prednisone (this is not mentioned in Dr. Goodrich's last note, but was renewed by him in 05/2020, so I assume it is maintenance for his COPD). - DuoNebs PRN (6) Hypertension: BP was 130/75 in the ED. - 153/85 this a.m. has been persistently elevated throughout the admission systolics in the 150s to 160s. Will defer to PCP for further management, can consider increasing metoprolol dosage. - Continue home metoprolol, Imdur (7) Diabetes mellitus: A1c was 7.1% in 05/2020. - Holding oral home meds - Glycemic consult placed (8) Obstructive sleep apnea: Long-standing diagnosis, but not tolerate of CPAP even at home. Uses nig htly O2. - O2 at night (9) Dementia, vascular: Slowly declining per notes. Has not wanted to use meds in the past. - Delirium prevention strategies - Open windows blinds lights during the day, quiet dark room at night - No history of agitation, if patient becomes agitated consider one-to-one versus chemical sedation (10) DVT prophylaxis: Had a PE in 2016 and was Eliquis which was stopped due to rectal bleeding in 06/2019. Given this history, he is likely high-risk for VTE. - Lovenox 40 mg SQ daily FENa: Heart healthy type II diabetic diet, judicious use of fluids Code Status: Full DVT PPX: Lovenox PT/OT: Ordered Dispo: Huber Vieira MD PGY 2, FCM This chart was completed utilizing [email or web address] voice recognition software. Grammatical errors, random word insertions, pronoun errors, and in complete sentences are an occasional consequence of the system. Any questions or concerns about the content, text, or information contained within the body of this dictation should be addressed directly to the physician for clarification. Admission and Anticipated Discharge Date Admission Date: June 14, 2020 Subjective Patient lying in bed this morning in no acute distress. Patient reports doing well overnight, with significant improvement in his breathing and coughing symptoms. Patient is endorsing some abdominal pain and associated diarrhea, pain worse in the right upper quadrant which is expected given his cholecystitis. He is tolerating his diet, voiding, stooling although diarrhea which improved with Imodium, slept well overnight. Explained to him that likely a component of his current diarrhea is secondary to his abdominal issues and hopefully will improve with surgery. Acute concerns related to timing of surgery today versus tomorrow, will defer to cardiology. Otherwise all questions answered. Results & Data Results & Data ([facility]) Vital Signs (Past 12 Hours) Vital Signs Temp Pulse Resp BP Pulse Ox 06/16/20 07:08 83 18 97 06/15/20 23:25 37 C 78 20 150/82 H 96 06/15/20 21:23 96 H 144/79 H (1) Diabetes mellitus Diabetes mellitus complication status: without complication Diabetes mellitus supervisor intermediates insulin use: without detention use Diabetes mellitus type: type 2 Qualified Code(s): E11.9 - Type 2 diabetes mellitus without complications (2) CAD (coronary artery disease) Associated angina: with stable angina Coronary Disease-Associated Artery/Lesion type: [place] artery [place] vs. transplanted heart: [place] heart Qualified Code(s): I25.118 - Atherosclerotic heart disease of [place] coronary artery with other forms of angina pectoris (3) Hypertension Hypertension type: essential hypertension Qualified Code(s): I10 - Essential (primary) hypertension
--- NOTE | 2020-06-16 08:21 | Pharmacy Report ---
Pharmacy Glycemic Short Note 2 - Date of Service June 16, 2020 - Glycemic Short BSG Results (Last 24 hours): 06/15/20 06/15/20 06/15/20 12:06 17:10 20:38 POC Glucose 189 H 140 H 193 H 06/16/20 08:05 POC Glucose 143 H OUTPATIENT ANTIDIABETIC REGIMEN: * Glyburide 2.5 mg PO BID * Metformin 500 mg PO BID * Chronic prednisone 5 mg PO daily * A1c = 7.1 % (06/04/20) ASSESSMENT: * TB is an 80 year old male who presented to [facility] ED on 06/14/2020 following a fall * Patient found to have two rib fractures - no other evidence of acute fractures * Pelvic/hip CTs incidentally revealed evidence of acute diverticulitis - receiving IV Unasyn currently * Pertinent PMH includes HFpEF, vascular dementia, BISI, and advanced COPD (requiring chronic prednisone 5 mg PO daily) * BSGs reasonably well-controlled yesterday (138, 189, 140, 193 mg/dL) * Will tighten carb ratio today * Fasting BSG of 143 mg/dL this morning * Continue Lantus 5 units daily PLAN FOR INPATIENT GLYCEMIC CONTROL: * Hold outpatient oral diabetes medications * Basal insulin * Lantus 5 units SQ qAM * Bolus insulin - tighten * NovoLog per scale ACHS or Q6hrs while NPO * Goal Range: Low 110 mg/dL - High 150 mg/dL * Correction Factor: 25 mg/dL/unit * Nutritional / Prandial insulin per carb ratio of 1 unit per 6 grams CHO consumed PLAN FOR DISCHARGE: * Reasonable HbA1c for this patient is < 8% based on age, comorbidities (including vascular dementia), and history of falls * Reasonable to continue home regimen provided patient is not experiencing hypoglycemia as an outpatient * Otherwise, consider metformin monotherapy or decreasing glyburide to once daily with AM prednisone
[2020-06-16] MEDS ORDERED: INSULIN GLARGINE SOLOSTAR 100 UNITS/ML 3 ML PEN SC ONE (09:00)
[2020-06-16 09:10] LABS: BUN Creatinine Ratio 18.1 (10-20); Calcium 9.4 mg/dl (8.5-10.1); Est GFR (African American) 98.1; Est GFR (Non-African American) 84.7; Potassium 3.6 mmol/L (3.5-5.1)
[2020-06-16] MEDS: ISOSORBIDE MONO EXTENDED REL 60 MG TABCR PO SCH (09:25)
[2020-06-16] MEDS: METOPROLOL TARTRATE 25 MG TAB PO SCH (09:25)
[2020-06-16] MEDS: FUROSEMIDE 20 MG TAB PO SCH (09:25)
[2020-06-16] MEDS: UMECLIDINIUM BROMIDE 62.5MCG/BLISTER 7 PUFFS/INHALER INH SCH (09:25)
[2020-06-16] MEDS: ENOXAPARIN INJ 40 MG/0.4 ML SYR SQ SCH (09:25)
[2020-06-16] MEDS: predniSONE 5 MG TAB PO SCH (09:25)
[2020-06-16] MEDS: INSULIN ASPART 100 UNITS/ML 3 ML PEN SC SCH ×2 (09:32→13:03)
[2020-06-16] MEDS: ACETAMINOPHEN 325 MG TAB PO PRN (11:05)
--- NOTE | 2020-06-16 11:06 | Discharge Summary ---
Date of Service June 16, 2020 Admission HPI Per Admitting Provider 80yo M w/ hx of HTN, CAD, DM who presents after a fall at home. He has significant dementia and does not recall the incident, but his relates that he was on the porch eating lunch. After lunch, he got up to go inside and tripped on the lip/threshold of the door. She denies that he reported any dizziness, lightheadedness, or other presyncopal symptoms. She does not feel he lost consciousness or struck his head. Due to pain in the hip and in the right chest, EMS was called. In the ED, he was found to have two right rib fractures. No other noted injuries. However, pelvic CT incidentally found acute diverticulitis involving the distal descending colon without any sign of abscess. His reports he has felt "hot" over the last week, but they have not checked a temperature. He has also noted a "stomach ache" over the last 3 days, but no real focal pain. At present, he is in no distress. He reports some mild discomfort in the right chest wall area, but no abdominal pain. No other reported symptoms. Admission Exam Per Admitting Provider Constitutional: WD/WN, vitals as above Eyes: EOM intact bilaterally; no conjunctival abnormality ENMT: external ear and nose normal, oropharynx normal Neck: trachea midline, no thyromegaly normal visual inspection Respiratory: normal respiratory effort, lungs clear to auscultation no respiratory distress Cardiovascular: RRR, no murmur, no edema Gastrointestinal (Abdomen): Inspection/Auscultation: abdomen normal to inspection and normal bowel sounds; abdomen not distended Percussion/Palpation: abdomen soft; abdomen nontender, no guarding and abdomen not rigid Musculoskeletal: no cyanosis or clubbing, extremities motor strength 5/5 Skin: no rashes, warm and dry Neurologic: moves all extremities and awake Psychiatric: Orientation: alert, oriented to person and cooperative Principal Diagnosis Diverticulitis complicated by heart failure with preserved ejection fraction, advanced COPD, diabetes mellitus type 2, and advanced dementia Discharge Exam General: In no acute distress HEENT: Normocephalic atraumatic Neck: Normal to visual inspection, trachea midline Cardiac: Palpated pulses, symmetrical bilaterally, a bit soft, appeared to be in regular rate and rhythm to me Respiratory: Symmetrical chest expansion bilaterally, no increased work of breathing, nonlabored breathing, able to speak in complete sentences GI: Soft, nontender, nondistended, bit of pain in left lower quadrant MSK: Moves all extremities Skin: Cool dry and intact Neuro: Alert and oriented x0 although does not and conversive Psych: Calm, cooperative Discharge Data Allergies Allergy/AdvReac Type Severity Reaction Status Date / Time ibuprofen Allergy Mild ULCERS Verified 06/14/20 14:30 Consultations 06/14/20 16:37 ED Decision to Admit Stat 06/14/20 18:13 Consult Case Management - Discharge Planning Routine Ordered Studies 06/14/20 14:15 CT head/brain wo con Stat 06/14/20 14:21 CT cervical spine wo con Stat 06/14/20 15:57 CT bony pelvis wo con Stat CT hip RT wo con Stat Hospital Course (1) Fall: Per this is an unprovoked fall, mechanical in nature, no syncopal episode, no loss of conscious, no postictal state. Imaging in the emergency department demonstrated 2 right rib fractures but no other injuries. Patient was monitored on the general medical floors and had no acute events, continued to improve from a medical standpoint. He was evaluated by PT OT and case management who all felt that he qualified for home rehab, this is been arranged at [facility]. -Pain well controlled at present with lidocaine and acetaminophen (2) Diverticulitis: Incidental finding on pelvic CT on admission on 06/14. Patient is for the most part asymptomatic, endorsing a tinge of left lower abdominal pain. Given his minimal symptoms will initiate medical therapy with antibiotics and not restrict diet. Patient did well with Unasyn and improved from a clinical standpoint. He was subsequently discharged on Augmentin to complete a 10-day course (3) Heart failure with preserved ejection fraction: History of chronic diastolic heart failure last echo was 08/2017 demonstrating an ejection fraction of 50 to 55%. Patient is currently asymptomatic at present, negative pedal edema. His reports that his legs are "always swollen and have been for years. He has been breathing comfortably since admission and does not have signs of fluid overload. - Continued beta-domi - Continued home Lasix 60 mg PO daily - Monitord for signs and symptoms of fluid overload, consider chest x-ray (4) CAD (coronary artery disease): Denies chest pain - Continued beta-domi, Imdur (5) Advanced COPD: Managed by Dr. Cable, last seen in April and was stable at that time. Has not endorsed shortness of breath or other COPD symptoms since admission, continued home meds. - Continued home budesonide, tiotropium - Continued prednisone (this is not mentioned in Dr. Goodrich's last note, but was renewed by him in 05/2020, so I assume it is maintenance for his COPD). - DuoNebs PRN (6) Hypertension: BP was 130/75 in the ED. - 170/82 this a.m. has been persistently elevated throughout the admission systolics in the 150s to 160s. Will defer to PCP for further management, can consider increasing metoprolol dosage. - Continued home metoprolol, Imdur (7) Diabetes mellitus: A1c was 7.1% in 05/2020. - Holding oral home meds - Glycemic consult placed (8) Obstructive sleep apnea: Long-standing diagnosis, but not tolerate of CPAP even at home. Uses nightly O2. - continue O2 at night (9) Dementia, vascular: Slowly declining per notes. Has not wanted to use meds in the past. - Delirium prevention strategies - Open windows blinds lights during the day, quiet dark room at night - No history of agitation, if patient becomes agitated consider one-to-one versus chemical sedation - PCP to consider outpatient referral (10) DVT prophylaxis: Had a PE in 2016 and was Eliquis which was stopped due to rectal bleeding in 06/2019. Given this history, he is likely high-risk for VTE. - Lovenox 40 mg SQ daily, DC'd on discharge -To consider risks and benefits of anticoagulation with his PCP FENa: Heart healthy type II diabetic diet, judicious use of fluids Code Status: Full Dispo: home with home PT Felice Vieira MD PGY 2, FCM This chart was completed utilizing [employer] voice recognition software. Grammatical errors, random word insertions, pronoun errors, and in complete sentences are an occasional consequence of the system. Any questions or concerns about the content, text, or information contained within the body of this dictation should be addressed directly to the physician for clarification. Total Time Total Time Spent Total Time Spent (In Minutes): see attending attestation Discharge Plan Discharge Items Patient Disposition: Home - Self-Care Reason For Visit: FALL,DIVERTICULITIS Discharge Diagnosis: Diverticulitis complicated by heart failure with preserved ejection fraction, advanced COPD, diabetes mellitus type 2, and advanced dementia Activity: Resume your previous activity Sexual Activity: After one week Non-emergency contact: Primary Care Provider Call non-emergency contact if: you have any medication questions, your symptoms worsen, your pain is not controlled and your temperature is above 101.5 Follow-up/Referrals: Rubens Quiñonez, [Primary Care Provider] - 06/22/20 11:00 am Diet: Carb Consistent or DM2 Addtl Attending Provider Instructions: Care instructions: You were admitted to [facility] for treatment of Diverticulitis complicated by heart failure with preserved ejection fraction, advanced COPD, diabetes mellitus type 2, and advanced dementia. While hospitalized imaging was obtained demonstrating 2 rib fractures and that you had diverticulitis, and infection of your lower colon. You were asymptomatic, so we elected to proceed with medical management providing you with IV antibiotics, and did not modify your diet. You tolerated the medication well and continued to improve throughout the admission. While admitted to the hospital your evaluated by physical therapy and Occupational Therapy you thought you benefit from outpatient therapy. We requested case management's assistance in obtaining this and appears at [facility] as outpatient therapy has been scheduled for this . On discharge we are requesting complete your antibiotic regimen with Augmentin you are to take 2 pills 1 in the morning and 1 in the evening for a total of 10 days. They have any questions or concerns please feel free to conta ct us or contact your primary care physician Diverticulitis For the next week or so please avoid any foods that are difficult to digest. Try to stay adequately hydrated Please take Augmentin 1 pill in the morning and 1 pill in the evening for 12 days This medication may cause an upset stomach so it is best to take this medication with some food Hypertension Please address your elevated blood pressure with your primary care physician. Rib fractures Your pain was well-controlled while hospitalized therefore we did not deem any necessity for opiates at this time. Please focus on taking big deep breaths to ensure you do not develop pneumonia. A discharge summary will be sent to your primary care physician to ensure continuity of care. Please bring this discharge summary with you to your next office appointment so that your provider can review it at that time. Follow-up appointments: - Keep all your follow-up appointments as already scheduled. If you cannot make an appointment, notify your provider. - Please call to request a follow-up appointment with your primary care physician within one week of discharge. Please let us know if you are unable to obtain an appointment Medications: - Your medication list has been reviewed and reconciled upon discharge to ensure accuracy and continuity of care. - You are provided with a list of all your current medications at this time. Please review this list closely and make note of any changes. - Please take all of your medications exactly as prescribed. - Tell your primary care provider if you cannot afford your medications. - Call your primary care provider if you are having any side effects or any other problems. - Call your primary care provider before taking any over the counter medications or supplements, including herbals and vitamins, because some of these may interact with your current medications and/or make your symptoms worse. Symptoms: Please call your primary care provider for symptoms including, but not limited to: fevers (temperatures greater than 100.4), chills, intractable nausea or vomiting, diarrhea, rash, shortness of breath, bleeding, pain, or if you experience any worsening of the symptoms that brought you to the hospital. For EMERGENCY and VERY SERIOUS health-related issues, such as chest pain, shortness of breath, or sudden onset of the symptoms that brought you to the hospital, you may need to call 911 or go directly to the Emergency Room It has been our privilege to take care of you during your hospital stay. And Above All Else Feel Better! Best Wishes, Felice Vieira MD PGY2 Resident, Family & Community Medicine [facility] Residency at [facility] - [address], [address] : [address] [place] [address] Pending Studies at Discharge: No Stand-Alone Forms: My [facility], Smoking Cessation Medications and DC Order Prescriptions: New amoxicillin-pot clavulanate [Augmentin] 875-125 mg Tablet 1 tab PO BIDM 12 Days Qty: 24 RF: 0 Continued budesonide 0.5 mg/2 mL suspension for nebulization 2 ml INH BID Qty: 120 RF: 11 metoprolol tartrate 50 mg tablet 25 mg PO BID Qty: 90 RF: 1 glyburide 2.5 mg tablet 2.5 mg PO BID Qty: 180 RF: 0 metformin 500 mg tablet extended release 24 hr 500 mg PO BID Qty: 180 RF: 3 furosemide [Lasix] 40 mg tablet 60 mg PO DAILY Qty: 135 RF: 3 cholecalciferol (vitamin D3) [Vitamin D3] 25 mcg (1,000 unit) capsule 25 mcg PO QAM RF: 0 vitamin B complex [B Complex-Vitamin B12] Tablet 1 tab PO HS RF: 0 (DME) lancets 33 gauge misc See Dose Instructions .ROUTE .MEDSUPPLY Qty: 100 RF: 0 (DME) OneTouch Ultra Blue Test Strip strip See Dose Instructions .ROUTE .MEDSUPPLY Qty: 10 RF: 0 ipratropium-albuterol 0.5 mg-3 mg(2.5 mg base)/3 mL Solution For Nebulization 3 ml INHALATION Q4H PRN (Reason: sob/wheezing) RF: 0 nitroglycerin [Nitrostat] 0.4 mg Tablet, Sublingual 0.4 mg Sublingual DIRECTED RF: 0 isosorbide mononitrate 60 mg tablet extended release 24 hr 60 mg PO QAM RF: 0 montelukast [Singulair] 10 mg tablet 10 mg PO HS RF: 0 dextromethorphan-guaifenesin 10-100 mg/5 mL Liquid 10 ml PO Q6H PRN (Reason: Congestion) RF: 0 prednisone 5 mg tablet 5 mg PO QAM RF: 0 Spiriva with HandiHaler 18 mcg capsule, w/inhalation device 1 cap INHALATION HS RF: 0 Discharge Orders: Discharge Order (Routine); Ordered 06/16/20 Ordered By: Felice Smith/Other Patient Handouts: Amoxicillin Clavulanic Acid tablets Admission Data Admit Date/Time: 06/14/20 17:17 Attending Provider: Enrique Molina Admit Provider: Dontrell Mcdonough Primary Care Provider: Rubens Quiñonez Other Providers: Dontrell Mcdonough ; [facility],Home Healthcare Other Interventions: Discharge Summary Assessment (RN) Last Done: 06/16/20 13:26 Supervising Physician Co-Signing Physician Notes Patient seen and examined independently of resident physician, Dr. Vieira. Agree with history, exam findings, assessment and plan of care as outlined. In brief, Mr. Daniel is an 80 year old male with hx of dementia, HFpEF, CAD, HTN, advanced COPD, DM and BISI admitted following a fall where he sustained non- displaced rib fractures (right). Incidental finding of acute diverticulitis. Feeling well. No complaints today. at the bedside. VS and labs/imaging reviewed. Nursing notes reviewed. Well appearing. Oriented x 2. Tender over the anterior lower ribs on the right. Heart with regular rate and rhythm. Lungs are clear to auscultation, fair air movement. Abdomen is nontender. 1. mechanical fall. PT/OT. Family prefers home PT/OT services if that is safe on discharge. 2. rib fractures, non-displaced. Pain control with lido patch and Tylenol. Continue with pulm toilet/incentive spirometry. 3. Asymptomatic acute diverticulitis. Discharge on augmentin. 4. HFpEF, CAD. Not in exacerbation. Continue with home Lasix and beta domi. 5. Advanced COPD. Followed by Dr. Goodrich. Continue home budesonide, tiotropiium and 5mg pred. Continue nocturnal O2he is not sure how much O2 he uses at night. 6. DM. A1C 7.0. Holding home metformin and glyburide. SSI while here. Dispo: discharge home with home PT. Resident Activity Tracking Resident Involvement: Resident Care Provided Care Provided: Adult Hospital Medicine
[2020-06-16] MEDS ORDERED: KETOROLAC TROMETHAMINE 15 MG/ML VIAL IV ONE (12:05)
[2020-06-16] MEDS ORDERED: AMOXICILLIN/CLAVULANATE 875 MG TAB PO SCH (17:00)
== END 2020-06-16 14:43 | disposition home or self-care (01) ==
LOC: ED 13:21 → 3N 13:21 → SUATTDRO 17:17 → 3N 17:44

== ENCOUNTER 2022-09-26 00:28 | Inpatient (IN) ==
--- NOTE | 2022-09-26 00:49 | Emergency Department Note ---
Impression & Plan Hypoxia ADMIT ED Provider Note HPI: The patient is an 82-year-old gentleman with history of dementia, asthma, ambulatory dysfunction, COPD, CAD, presents the emergency department with cough and congestion for the past week as well as some ambulatory dysfunction tonight and shortness of breath. On arrival here to the ED the patient is on 3 L nasal cannula oxygen via EMS for reported hypoxia in the field. He exhibits a moderate expiratory wheezing on my exam, he is otherwise in no acute distress and denies any focal complaints of pain. ROS: -Pulmonary: Cough, wheezing, shortness of breath *10 point review systems was conducted and is otherwise negative unless stated above *Outpatient medications and allergy history reviewed PE: General: Alert, frail-appearing, no acute distress HEENT: Normocephalic, trachea midline Eyes: Extraocular eye movement is intact, no scleral erythema Pulmonary: Moderate expiratory wheezing bilaterally and throughout Cardio: Regular rate and rhythm GI: Abdomen is soft, nontender : No suprapubic tenderness MSK: No evidence of trauma or malformation of the extremities, no edema, maintains flexion at the hips bilaterally without issue/pain Skin: No evidence of rash Neuro: Alert, no focal deficits 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 He is unable to provide me with much history on arrival secondary to his dementia. He is calm and cooperative on arrival, does exhibit some bronchospasm on my initial assessment and therefore was initiated with a DuoNeb breathing treatment and also IV Solu-Medrol. IV was established, lab work obtained, chest x-ray shows a possible left lower lobe infiltrate per my interpretation, viral panel testing is positive for influenza A. Patient's lab work otherwise does not show any leukocytosis, he has borderline temperature but overall afebrile here at 37.6. We will draw blood cultures. On my reassessment the patient appears improved, he did have his nasal cannula oxygen removed here in the ED and did have a desaturation to 85% therefore was replaced with good improvement. His venous blood gas does not show any evidence of acidosis. At this time given influenza A positive status we will hold off on antibiotics, blood cultures will be obtained, Tamiflu initiation will be deferred to the admitting service, case was discussed with the on-call hospitalist for [facility], Dr. Modi, and the patient was admitted in stable condition for further care. * CRITICAL CARE TIME: ( 35 ) minutes Diagnosis: 1. Hypoxia, acute 2. Influenza A infection 3. Dyspnea 4. Acute bronchospasm 5. Dementia Disposition: Admission Luis Daniel Wong DO Emergency Medicine Past Med/Surg History Medical History Advanced COPD Anemia Anxiety CAD (coronary artery disease) (10/04/13) Colonoscopy planned Dementia, vascular Diabetes mellitus Diverticulitis Diverticulosis Fall Fracture, ribs Generalized osteoarthritis GERD (gastroesophageal reflux disease) Heart failure with preserved ejection fraction History of asthma Hyperlipidemia Hypertension Inguinal hernia Injury of hip, right Leg edema Moderate persistent asthma Monoclonal B-cell lymphocytosis Obstructive sleep apnea Periodic limb movement disorder Pulmonary emboli 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 hearing loss (SNHL) of both ears Splenomegaly (12/19/12) Surgical History History of bilateral hip replacements History of prostatectomy History of tonsillectomy S/P colonoscopy S/P hernia repair S/P vasectomy Family History Family/Other Myocardial infarction Stroke Sister Diabetes Mother Cardiac disorder Myocardial infarction Grandmother Cardiac disorder Hypertension Grandfather Cardiac disorder Hypertension Denies family history of Esophageal cancer Ovarian cancer Prostate cancer Crohn's disease Breast cancer Colorectal cancer Social History Smoking Status: Never smoker Second Hand Exposure: No; Hx Alcohol Use: No Hx Substance Use: No Preferred Language: Amharic Communication Ability: Impaired Visual Impairment: Partially Limited Hearing Ability: Hard of Hearing Food Service Tray Attendant Required: No Beliefs That Will Affect Care: None marital status: Current Living Situation: Spouse current occupational status: retired Feels Safe at Home: Yes Childhood Exposure to Second-Hand Smoke: No Dental Care, Regularly: Yes Physical Activity Frequency: Does not Exercise Seatbelt Use: never Sunscreen Use: No Assistive Devices: Glasses, Oxygen - at Night and Walker Allergies Allergies Allergy/AdvReac Type Severity Reaction Status Date / Time ibuprofen Allergy Mild ULCERS IN Verified 09/26/22 00:40 MOUTH Home Meds Home Medications Medication Instructions Recorded Confirmed cholecalciferol (vitamin D3) 25 25 mcg PO QAM 03/04/20 09/26/22 mcg (1,000 unit) capsule (Vitamin D3) acetaminophen 500 mg capsule 500 mg PO Q6H PRN Pain 06/17/20 09/26/22 haloperidol 1 mg tablet 1 mg PO HS PRN Insomnia 05/21/22 09/26/22 hyoscyamine sulfate 0.125 mg tablet 0.125 mg PO HS PRN Gi Upset 05/21/22 09/26/22 lorazepam 0.5 mg tablet 0.5 mg PO HS PRN Anxiety 05/21/22 09/26/22 Previous Rx's Medication Instructions Recorded furosemide 40 mg tablet (Lasix) 40 mg PO DAILY #90 tabs 12/22/21 montelukast 10 mg tablet 10 mg PO HS #90 tabs 01/16/22 (Singulair) blood sugar diagnostic #100 ea 01/24/22 blood-glucose meter (OneTouch #1 ea 01/24/22 UltraMini kit) metformin 500 mg tablet,extended 500 mg PO BID #180 tabs 02/28/22 release 24 hr tramadol 50 mg tablet 50 mg PO BID PRN pain #60 tabs 03/22/22 budesonide 0.5 mg/2 mL suspension 0.5 mg (2 mL) inhalation BID #120 06/05/22 for nebulization mL ipratropium 0.5 mg-albuterol 3 mg 3 ml inhalation Q4H PRN 06/05/22 (2.5 mg base)/3 mL nebulization sob/wheezing #180 mL soln tiotropium bromide 18 mcg capsule 1 cap inhalation DAILY #60 06/05/22 with inhalation device (Spiriva inhalations with HandiHaler) atorvastatin 10 mg tablet 10 mg PO QPM #90 tabs 06/13/22 metoprolol tartrate 50 mg tablet 25 mg PO BID #90 tabs 06/13/22 glyburide 2.5 mg tablet 2.5 mg PO BID #180 tabs 07/13/22 isosorbide mononitrate 60 mg 60 mg PO QAM #90 tabs 07/13/22 tablet,extended release 24 hr quetiapine 25 mg tablet (Seroquel) 25 mg PO BID #90 tabs 07/28/22 clotrimazole 1 % topical solution See Rx Instructions topical BID 08/11/22 #30 mL celecoxib 100 mg capsule 100 mg PO DAILY #90 caps 08/28/22 Results & Data (ED) Vital Signs Vital Signs - 24 hr 09/26/22 00:48 09/26/22 00:48 09/26/22 00:48 Temperature 37.6 C H 37.6 C H Temperature Source Oral Oral Pulse Rate 106 H Pulse Rate [Apical] 106 H Pulse Rate from SpO2 Sensor Pulse Strength [Apical] Normal Respiratory Rate 15 15 Respiratory Effort / Characteristics Short of Breath Short of Breath Blood Pressure 150/104 H Blood Pressure [Right Arm] 150/104 H Blood Pressure Mean 119 Blood Pressure Mean [Right Arm] 119 Blood Pressure Position Lying Blood Pressure Position [Right Arm] Lying Pulse Oximetry 97 96 Oxygen Delivery Method Nasal Cannula Nasal Cannula Nasal Cannula Oxygen Flow Rate 3 3 3 Sepsis Recent Fever Within 48 Hours Yes Sepsis New/Unexplained Change in Mental Status No Sepsis Action Taken by Nursing No Action Required 09/26/22 01:24 09/26/22 00:42 09/26/22 00:50 Temperature Temperature Source Pulse Rate 106 H 112 H 106 H Pulse Rate [Apical] Pulse Rate from SpO2 Sensor 112 H 106 H Pulse Strength [Apical] Respiratory Rate 19 21 Respiratory Effort / Characteristics Blood Pressure Blood Pressure [Right Arm] Blood Pressure Mean Blood Pressure Mean [Right Arm] Blood Pressure Position Blood Pressure Position [Right Arm] Pulse Oximetry 96 94 97 Oxygen Delivery Method Nasal Cannula Oxygen Flow Rate 3 Sepsis Recent Fever Within 48 Hours Sepsis New/Unexplained Change in Mental Status Sepsis Action Taken by Nursing 09/26/22 00:59 09/26/22 00:59 09/26/22 01:00 Temperature Temperature Source Pulse Rate Pulse Rate [Apical] Pulse Rate from SpO2 Sensor 105 H Pulse Strength [Apical] Respiratory Rate 34 H Respiratory Effort / Characteristics Blood Pressure 155/90 H 150/104 H Blood Pressure [Right Arm] Blood Pressure Mean 111 119 Blood Pressure Mean [Right Arm] Blood Pressure Position Blood Pressure Position [Right Arm] Pulse Oximetry 97 Oxygen Delivery Method Oxygen Flow Rate Sepsis Recent Fever Within 48 Hours Sepsis New/Unexplained Change in Mental Status Sepsis Action Taken by Nursing 09/26/22 01:00 09/26/22 01:10 09/26/22 01:20 Temperature Temperature Source Pulse Rate 104 H 106 H Pulse Rate [Apical] Pulse Rate from SpO2 Sensor 99 H 106 H 105 H Pulse Strength [Apical] Respiratory Rate 21 21 34 H Respiratory Effort / Characteristics Blood Pressure Blood Pressure [Right Arm] Blood Pressure Mean Blood Pressure Mean [Right Arm] Blood Pressure Position Blood Pressure Position [Right Arm] Pulse Oximetry 97 93 90 Oxygen Delivery Method Oxygen Flow Rate Sepsis Recent Fever Within 48 Hours Sepsis New/Unexplained Change in Mental Status Sepsis Action Taken by Nursing 09/26/22 01:30 09/26/22 01:40 09/26/22 01:45 Temperature Temperature Source Pulse Rate 110 H 109 H Pulse Rate [Apical] Pulse Rate from SpO2 Sensor 123 H 107 H Pulse Strength [Apical] Respiratory Rate 23 24 Respiratory Effort / Characteristics Blood Pressure Blood Pressure [Right Arm] Blood Pressure Mean Blood Pressure Mean [Right Arm] Blood Pressure Position Blood Pressure Position [Right Arm] Pulse Oximetry 85 L 96 Oxygen Delivery Method Oxygen Flow Rate Sepsis Recent Fever Within 48 Hours Sepsis New/Unexplained Change in Mental Status Sepsis Action Taken by Nursing 09/26/22 01:45 09/26/22 01:50 09/26/22 02:00 Temperature Temperature Source Pulse Rate 106 H Pulse Rate [Apical] Pulse Rate from SpO2 Sensor 107 H Pulse Strength [Apical] Respiratory Rate 13 Respiratory Effort / Characteristics Blood Pressure 151/81 H 120/81 Blood Pressure [Right Arm] Blood Pressure Mean 104 94 Blood Pressure Mean [Right Arm] Blood Pressure Position Blood Pressure Position [Right Arm] Pulse Oximetry 98 Oxygen Delivery Method Oxygen Flow Rate Sepsis Recent Fever Within 48 Hours Sepsis New/Unexplained Change in Mental Status Sepsis Action Taken by Nursing 09/26/22 02:00 09/26/22 02:10 09/26/22 02:20 Temperature Temperature Source Pulse Rate 111 H 115 H 106 H Pulse Rate [Apical] Pulse Rate from SpO2 Sensor 105 H 105 H 105 H Pulse Strength [Apical] Respiratory Rate 24 8 L 14 Respiratory Effort / Characteristics Blood Pressure Blood Pressure [Right Arm] Blood Pressure Mean Blood Pressure Mean [Right Arm] Blood Pressure Position Blood Pressure Position [Right Arm] Pulse Oximetry 96 95 97 Oxygen Delivery Method Oxygen Flow Rate Sepsis Recent Fever Within 48 Hours Sepsis New/Unexplained Change in Mental Status Sepsis Action Taken by Nursing Laboratory Data Result diagrams: 09/26/22 00:56 09/26/22 00:56 Lab Results 09/26/22 09/26/22 09/26/22 Range/Units 00:50 00:56 00:56 WBC 6.26 (4.8-10.8) K/ul RBC 4.49 L (4.63-6.08) M/uL Hgb 13.2 L (14.0-18.0) g/dl Hct 39.4 L (40.1-51.0) % MCV 87.8 (80.0-100.0) fL MCH 29.4 (25.0-34.0) pg MCHC 33.5 (32.0-36.0) g/dL RDW Std Deviation 44.0 (36.4-46.3) fL RDW Coeff of Haley 13.9 (11.5-14.5) % Plt Count 96 L (130-400) K/uL MPV 9.5 (9.4-12.4) fL Immature Gran % (Auto) 0.3 % Neut % (Auto) 57.5 % Lymph % (Auto) 29.2 % [place] % (Auto) 12.5 % Eos % (Auto) 0.3 % Baso % (Auto) 0.2 % Neut # (Auto) 3.60 (1.4-6.5) K/uL Lymph # (Auto) 1.83 (1.2-3.4) K/uL [place] # (Auto) 0.78 (0.24-0.82) K/uL Eos # (Auto) 0.02 (0-0.50) K/uL Baso # (Auto) 0.01 (0-0.2) K/uL Immature Gran # (Auto) 0.02 (0.00-0.02) K/uL Platelet Estimate Decreased L (Normal) PT 11.2 (9.0-12.0) Seconds INR 1.1 (0.9-1.1) VBG pH (7.36-7.41) VBG pCO2 (38-50) mmHg VBG pO2 mmHg VBG HCO3 mmol/L VBG O2 Saturation % VBG Base Excess mEq/L Sodium (136-145) mmol/L Potassium (3.5-5.1) mmol/L Chloride (98-107) mmol/L Carbon Dioxide (21-32) mmol/L Anion Gap (3-11) BUN (6-23) mg/dl Creatinine (0.6-1.4) mg/dl Est Cr Clr Drug Dosing Est GFR ( Amer) ml/min Est GFR (Non-Af Amer) ml/min BUN/Creatinine Ratio (10-20) Glucose (70-99(Fasting)) mg/dl Calcium (8.5-10.1) mg/dl Total Bilirubin (0.2-1.0) mg/dl AST (13-39) U/L ALT (7-52) U/L Alkaline Phosphatase (34-104) U/L Troponin I High Sens (0-20) pg/ml B-Natriuretic Peptide (0-100) pg/ml Total Protein (6.0-8.3) gm/dl Albumin (3.4-5.0) gm/dl Globulin (2.5-4.0) gm/dl Albumin/Globulin Ratio (0.9-2) Urine Color Urine Appearance (Clear) Urine pH (4.5-7.5) Ur Specific [place] (1.000-1.030) Urine Protein (Negative) Urine Glucose (UA) (Negative) Urine Ketones (Negative) Urine Blood (Negative) Urine Nitrite (Negative) Urine Bilirubin (Negative) Urine Urobilinogen (Negative) Ur Leukocyte Esterase (Negative) Urine WBC (Auto) (0-5) /hpf Urine RBC (Auto) (0-4) /hpf U Hyaline Cast (Auto) (0-5) /lpf U Epithel Cells (Auto) (0-5) /lpf Urine Bacteria (Auto) (Negative) SARS-CoV-2 (PCR) NEGATIVE (Negative) Influenza Type A (PCR) Positive A* (Neg) Influenza Type B (PCR) Negative (Neg) RSV (RT-PCR) Negative (Neg) 09/26/22 09/26/22 09/26/22 Range/Units 00:56 00:56 00:56 WBC (4.8-10.8) K/ul RBC (4.63-6.08) M/uL Hgb (14.0-18.0) g/dl Hct (40.1-51.0) % MCV (80.0-100.0) fL MCH (25.0-34.0) pg MCHC (32.0-36.0) g/dL RDW Std Deviation (36.4-46.3) fL RDW Coeff of Haley (11.5-14.5) % Plt Count (130-400) K/uL MPV (9.4-12.4) fL Immature Gran % (Auto) % Neut % (Auto) % Lymph % (Auto) % [place] % (Auto) % Eos % (Auto) % Baso % (Auto) % Neut # (Auto) (1.4-6.5) K/uL Lymph # (Auto) (1.2-3.4) K/uL [place] # (Auto) (0.24-0.82) K/uL Eos # (Auto) (0-0.50) K/uL Baso # (Auto) (0-0.2) K/uL Immature Gran # (Auto) (0.00-0.02) K/uL Platelet Estimate (Normal) PT (9.0-12.0) Seconds INR (0.9-1.1) VBG pH 7.44 H (7.36-7.41) VBG pCO2 44 (38-50) mmHg VBG pO2 59 mmHg VBG HCO3 30 mmol/L VBG O2 Saturation 90.6 % VBG Base Excess 5.0 mEq/L Sodium 140 (136-145) mmol/L Potassium 3.6 (3.5-5.1) mmol/L Chloride 105 (98-107) mmol/L Carbon Dioxide 27 (21-32) mmol/L Anion Gap 8 (3-11) BUN 18 (6-23) mg/dl Creatinine 0.89 (0.6-1.4) mg/dl Est Cr Clr Drug Dosing Not Reportable Est GFR ( Amer) 91.6 ml/min Est GFR (Non-Af Amer) 79.1 ml/min BUN/Creatinine Ratio 20.2 H (10-20) Glucose 127 H (70-99(Fasting)) mg/dl Calcium 8.7 (8.5-10.1) mg/dl Total Bilirubin 0.5 (0.2-1.0) mg/dl AST 17 (13-39) U/L ALT 21 (7-52) U/L Alkaline Phosphatase 69 (34-104) U/L Troponin I High Sens 11.9 (0-20) pg/ml B-Natriuretic Peptide 72 (0-100) pg/ml Total Protein 7.1 (6.0-8.3) gm/dl Albumin 4.1 (3.4-5.0) gm/dl Globulin 3.0 (2.5-4.0) gm/dl Albumin/Globulin Ratio 1.4 (0.9-2) Urine Color Urine Appearance (Clear) Urine pH (4.5-7.5) Ur Specific [place] (1.000-1.030) Urine Protein (Negative) Urine Glucose (UA) (Negative) Urine Ketones (Negative) Urine Blood (Negative) Urine Nitrite (Negative) Urine Bilirubin (Negative) Urine Urobilinogen (Negative) Ur Leukocyte Esterase (Negative) Urine WBC (Auto) (0-5) /hpf Urine RBC (Auto) (0-4) /hpf U Hyaline Cast (Auto) (0-5) /lpf U Epithel Cells (Auto) (0-5) /lpf Urine Bacteria (Auto) (Negative) SARS-CoV-2 (PCR) (Negative) Influenza Type A (PCR) (Neg) Influenza Type B (PCR) (Neg) RSV (RT-PCR) (Neg) 09/26/22 Range/Units 01:35 WBC (4.8-10.8) K/ul RBC (4.63-6.08) M/uL Hgb (14.0-18.0) g/dl Hct (40.1-51.0) % MCV (80.0-100.0) fL MCH (25.0-34.0) pg MCHC (32.0-36.0) g/dL RDW Std Deviation (36.4-46.3) fL RDW Coeff of Haley (11.5-14.5) % Plt Count (130-400) K/uL MPV (9.4-12.4) fL Immature Gran % (Auto) % Neut % (Auto) % Lymph % (Auto) % [place] % (Auto) % Eos % (Auto) % Baso % (Auto) % Neut # (Auto) (1.4-6.5) K/uL Lymph # (Auto) (1.2-3.4) K/uL [place] # (Auto) (0.24-0.82) K/uL Eos # (Auto) (0-0.50) K/uL Baso # (Auto) (0-0.2) K/uL Immature Gran # (Auto) (0.00-0.02) K/uL Platelet Estimate (Normal) PT (9.0-12.0) Seconds INR (0.9-1.1) VBG pH (7.36-7.41) VBG pCO2 (38-50) mmHg VBG pO2 mmHg VBG HCO3 mmol/L VBG O2 Saturation % VBG Base Excess mEq/L Sodium (136-145) mmol/L Potassium (3.5-5.1) mmol/L Chloride (98-107) mmol/L Carbon Dioxide (21-32) mmol/L Anion Gap (3-11) BUN (6-23) mg/dl Creatinine (0.6-1.4) mg/dl Est Cr Clr Drug Dosing Est GFR ( Amer) ml/min Est GFR (Non-Af Amer) ml/min BUN/Creatinine Ratio (10-20) Glucose (70-99(Fasting)) mg/dl Calcium (8.5-10.1) mg/dl Total Bilirubin (0.2-1.0) mg/dl AST (13-39) U/L ALT (7-52) U/L Alkaline Phosphatase (34-104) U/L Troponin I High Sens (0-20) pg/ml B-Natriuretic Peptide (0-100) pg/ml Total Protein (6.0-8.3) gm/dl Albumin (3.4-5.0) gm/dl Globulin (2.5-4.0) gm/dl Albumin/Globulin Ratio (0.9-2) Urine Color Yellow Urine Appearance Clear (Clear) Urine pH 5.0 (4.5-7.5) Ur Specific [place] 1.024 (1.000-1.030) Urine Protein 2+ H (Negative) Urine Glucose (UA) Negative (Negative) Urine Ketones Trace H (Negative) Urine Blood Negative (Negative) Urine Nitrite Negative (Negative) Urine Bilirubin Negative (Negative) Urine Urobilinogen Negative (Negative) Ur Leukocyte Esterase Negative (Negative) Urine WBC (Auto) 0 (0-5) /hpf Urine RBC (Auto) 0-4 (0-4) /hpf U Hyaline Cast (Auto) 1-5 (0-5) /lpf U Epithel Cells (Auto) 5-10 H (0-5) /lpf Urine Bacteria (Auto) Negative (Negative) SARS-CoV-2 (PCR) (Negative) Influenza Type A (PCR) (Neg) Influenza Type B (PCR) (Neg) RSV (RT-PCR) (Neg) Administered Medications Discontinued Medications Albuterol (Albut/Ipratrop 3mg/0.5mg Neb 3 Ml Vial) 3 ml NEB NOW STA; Protocol Stop: 09/26/22 01:32 Last Admin: 09/26/22 01:46 Dose: 3 ml Documented By: YA Methylprednisolone (Methylprednisolone 125 Mg/2 Ml Vial) 125 mg IV NOW STA Stop: 09/26/22 01:32 Last Admin: 09/26/22 01:46 Dose: 125 mg Documented By: YA Discharge Plan Visit Data Chief Complaint: Shortness of Breath/Dyspnea Stated Complaint: SOB, illness ED Provider: Luis Daniel Wong Discharge Problem: Hypoxia Forms [facility] Alone [facility] Pres[facility] Prescriptions: No Action furosemide [Lasix] 40 mg tablet 40 mg PO DAILY Qty: 90 1RF montelukast [Singulair] 10 mg tablet 10 mg PO HS Qty: 90 3RF (DME) blood sugar diagnostic Strip See Dose Instructions .ROUTE .MEDSUPPLY Qty: 100 5RF Rx Instructions: TEST TWICE DAILY; DX CODE- E11.9 (DME) blood-glucose meter [OneTouch UltraMini] Kit See Rx Instructions .Route Qty: 1 0RF Rx Instructions: As directed metformin 500 mg tablet extended release 24 hr 500 mg PO BID Qty: 180 1RF tramadol 50 mg tablet 50 mg PO BID PRN (Reason: pain) Qty: 60 2RF atorvastatin 10 mg tablet 10 mg PO QPM Qty: 90 3RF metoprolol tartrate 50 mg tablet 25 mg PO BID Qty: 90 3RF glyburide 2.5 mg tablet 2.5 mg PO BID Qty: 180 3RF isosorbide mononitrate 60 mg tablet extended release 24 hr 60 mg PO QAM Qty: 90 1RF quetiapine [Seroquel] 25 mg tablet 25 mg PO BID Qty: 90 3RF clotrimazole 1 % solution See Rx Instructions topical BID Qty: 30 1RF Rx Instructions: 5gtt to ear area BID x 14 days celecoxib 100 mg capsule 100 mg PO DAILY Qty: 90 1RF acetaminophen 500 mg capsule 500 mg PO Q6H PRN (Reason: Pain) cholecalciferol (vitamin D3) [Vitamin D3] 25 mcg (1,000 unit) capsule 25 mcg PO QAM budesonide 0.5 mg/2 mL suspension for nebulization 0.5 mg INH BID Qty: 120 6RF ipratropium-albuterol 0.5 mg-3 mg(2.5 mg base)/3 mL solution for nebulization 3 ml INHALATION Q4H PRN (Reason: sob/wheezing) Qty: 180 3RF Spiriva with HandiHaler 18 mcg capsule, w/inhalation device 1 cap inhalation DAILY Qty: 60 5RF Rx Instructions: puncture 1 cap using device; one dose = 2 inhalations haloperidol 1 mg tablet 1 mg PO HS PRN (Reason: Insomnia) hyoscyamine sulfate 0.125 mg tablet 0.125 mg PO HS PRN (Reason: Gi Upset) lorazepam 0.5 mg tablet 0.5 mg PO HS PRN (Reason: Anxiety) Referrals Referrals: Brad Mason III, CRNP [Primary Care Provider] -
[2022-09-26 01:05] LABS: HCO3 VBG 30 mmol/L; Oxygen Saturation VBG 90.6 %; PCO2 VBG 44 mmHg (38-50); PO2 VBG 59 mmHg; pH VBG 7.44 (7.36-7.41)
[2022-09-26 01:24] LABS: INR 1.1 (0.9-1.1); Prothrombin Time 11.2 Seconds (9.0-12.0)
[2022-09-26 01:31] LABS: Troponin I High Sensitivity 11.9 pg/ml (0-20)
[2022-09-26] MEDS ORDERED: ALBUT/IPRATROP 3MG/0.5MG NEB 3 ML VIAL NEB STA (01:31)
[2022-09-26] MEDS ORDERED: methylPREDNISolone 125 MG/2 ML VIAL IV STA (01:31)
[2022-09-26 01:32] LABS: Alanine Aminotransferase 21 U/L (7-52); Albumin Globulin Ratio 1.4 (0.9-2); Albumin Level 4.1 gm/dl (3.4-5.0); Alkaline Phosphatase 69 U/L (34-104); Anion Gap 8 (3-11); Aspartate Aminotransferase 17 U/L (13-39); BUN Creatinine Ratio 20.2 (10-20); Bilirubin,Total 0.5 mg/dl (0.2-1.0); Blood Urea Nitrogen 18 mg/dl (6-23); Calcium 8.7 mg/dl (8.5-10.1); Carbon Dioxide 27 mmol/L (21-32); Chloride 105 mmol/L (98-107); Est GFR (African American) 91.6 ml/min; Est GFR (Non-African American) 79.1 ml/min; Glucose 127 mg/dl (70-99(Fasting)); Potassium 3.6 mmol/L (3.5-5.1); Sodium 140 mmol/L (136-145); Total Protein 7.1 gm/dl (6.0-8.3)
[2022-09-26 02:05] LABS: Basophils # (auto) 0.01 K/uL (0-0.2); Basophils % (auto) 0.2 %; Eosinophils # (auto) 0.02 K/uL (0-0.50); Eosinophils % (auto) 0.3 %; Hematocrit (blood only) 39.4 % (40.1-51.0); Hemoglobin 13.2 g/dl (14.0-18.0); Immature Granulocytes # (auto) 0.02 K/uL (0.00-0.02); Immature Granulocytes % (auto) 0.3 %; Lymphocytes # (auto) 1.83 K/uL (1.2-3.4); Lymphocytes % (auto) 29.2 %; Mean Corpuscular Hemoglobin 29.4 pg (25.0-34.0); Mean Corpuscular Hgb Conc 33.5 g/dL (32.0-36.0); Mean Corpuscular Volume 87.8 fL (80.0-100.0); Mean Platelet Volume 9.5 fL (9.4-12.4); Monocytes # (auto) 0.78 K/uL (0.24-0.82); Monocytes % (auto) 12.5 %; Neutrophils % (auto) 57.5 %; Platelet Count 96 K/uL (130-400); Platelet Estimate Decreased (Normal); RDW Coefficient of Variation 13.9 % (11.5-14.5); Red Blood Count 4.49 M/uL (4.63-6.08); White Blood Count 6.26 K/ul (4.8-10.8)
[2022-09-26 02:11] LABS: Appearance Urine Clear (Clear); Bacteria Urine Automated Negative (Negative); Bilirubin Urine Negative (Negative); Blood Urine Negative (Negative); Color Urine Yellow; Glucose Urine UA Negative (Negative); Ketones Urine Trace (Negative); Leukocyte Esterase Urine Negative (Negative); Nitrite Urine Negative (Negative); Protein Urine 2+ (Negative); RBC Urine Automated 0-4 /hpf (0-4); Specific Gravity Urine 1.024 (1.000-1.030); Urobilinogen Urine Negative (Negative); WBC Urine Automated 0 /hpf (0-5)
[2022-09-26 02:12] LABS: Influenza B virus by PCR Negative (Neg); RSV by PCR Negative (Neg); SARS CoV2 RNA(COVID-19) Ceph NEGATIVE (Negative)
[2022-09-26 02:33] LABS: Influenza A virus by PCR Positive (Neg)
--- NOTE | 2022-09-26 03:00 | History & Physical Report ---
Date of Service September 26, 2022 Assessment & Plan (1) Hypoxia: Plan: AHRF 2/2 Acute Asthma Exacerbation, 2/2 Influenza A - Wheezing, SoB, Hypoxia to 3L. 80s in field - No home oxygen requirement per patient, chart review reveals he is noncompliant with BiPAP and is recommended for oxygen nightly. Continue while inpatient. - Wheezing on exam Patient and son report 2 days of symptoms, with up to 5 days of weakness. Patient increased risk of complications of flu 2/2 underlying asthma and hypoxia, no renal dysfunction, will treat with Tamiflu 75 mg twice daily x5 days. Methylprednisolone 125 given in ER, continue 40 twice daily Nebs every 4 hours as needed Supportive care Pro-Cody, sputum ordered, low suspicion for bacterial superinfection at this time we will continue to follow and treat with supportive care for flu A/asthma Continue montelukast, -Mag ordered, replete if low Type II DM Hold home metformin Basal bolus SSI DM diet Glucose checks AC/at bedtime GERD Protonix daily CAD Continue metoprolol 25 mg p.o. twice daily Continue isosorbide Continue Lasix 40 daily Continue atorvastatin 10 mg daily High sensitive troponin normal, BNP normal, no arrhythmia on EKG. No evidence of arrhythmia/ACS/acute CHF on admission BISI CPAP nightly Vascular dementia Delirium precautions Continue home Haldol 1 mg p.o. at bedtime as needed for insomnia Continue home lorazepam 0.5 mg p.o. nightly as needed for anxiety Continue quetiapine 25 mg p.o. twice daily DVT prophylaxis: Lovenox Disposition: Medical/surgical CODE STATUS: Full code Diet: DM, heart healthy (2) History of asthma: (3) Moderate persistent asthma: (4) Obstructive sleep apnea: (5) CAD (coronary artery disease): (6) Dementia, vascular: (7) Diabetes mellitus: (8) Obesity (BMI 30-39.9): (9) Hypertension: (10) Influenza A: History of Present Illness Primary Care Provider: Brad Mason III, CRNP [place] is an 82-year-old male with a past medical history of asthma, IPMN, BISI, hypertension, hyperlipidemia, heart failure with preserved ejection fraction, GERD, CAD, advanced COPD, and monoclonal B-cell lymphocytosis who presented to the emergency department with 1 week of cough and congestion gradually worsening over the last week and with the inability to ambulate independently day of admission. On ER review he is hypoxic requiring 3 L of nasal cannula to maintain sats greater than 94%, temperature 37.6, pulse 106, BP 120/81. He has no leukocytosis, hemoglobin 13.2, platelet 96 with a baseline of low 100s, normal sodium/potassium, creatinine with normal baseline and admitting creatinine 0.89, VBG 7.4 4/44/59/30, uninfected appearing UA, and a flu positive viral PCR. Chest x-ray? Left lower lobe patchy opacity, no pulmonary edema. EKG sinus tachycardia with PVCs, no territorial ST segment changes. QTc 446. Patient seen at the bedside with his son present. Patient does have dementia, redirects conversation frequently with humor but does not verbalize month, year, or city but does recognize that he is in the hospital. Per son patient has been weak for couple of days, and seems to be worse with wheezing and nonproductive cough in the last 2 days. Patient has had a couple of falls, he has not hit his head or lost consciousness but has had slid down and had trouble bearing weight on his legs. Patient denies headache, neck pain. Increased wheezing using albuterol at home. Patient denies fever, chills, sweats, sputum production. He and his son know he has a history of asthma, previously was thought to be COPDBut on follow-up test was thought to be more consistent with asthma. Has been taking his inhalers including his daily inhalers as directed. Is continued on budesonide twice daily and Spiriva. Patient is a somewhat inconsistent historian about oxygen. He reports she does not need any home oxygen, but does have a concentrator at home and is not sure why, notes that he has not used this recently. Review of pulmonology notes revealed that patient was recommended to use supplemental oxygen at night as medical necessity as he is noncompliant with BiPAP therapy. CPAP nightly, oxygen as needed ordered for inpatient. Allergies Allergy/AdvReac Type Severity Reaction Status Date / Time ibuprofen Allergy Mild ULCERS IN Verified 09/26/22 00:40 MOUTH Home Medications Medication Instructions Recorded Confirmed Type cholecalciferol (vitamin D3) 25 25 mcg PO QAM 03/04/20 09/26/22 History mcg (1,000 unit) capsule (Vitamin D3) acetaminophen 500 mg capsule 500 mg PO Q6H PRN Pain 06/17/20 09/26/22 History furosemide 40 mg tablet (Lasix) 40 mg PO DAILY #90 tabs 12/22/21 09/26/22 Rx montelukast 10 mg tablet 10 mg PO HS #90 tabs 01/16/22 09/26/22 Rx (Singulair) blood sugar diagnostic #100 ea 01/24/22 08/03/22 Rx blood-glucose meter (OneTouch #1 ea 01/24/22 08/03/22 Rx UltraMini kit) metformin 500 mg tablet,extended 500 mg PO BID #180 tabs 02/28/22 09/26/22 Rx release 24 hr tramadol 50 mg tablet 50 mg PO BID PRN pain #60 tabs 03/22/22 09/26/22 Rx haloperidol 1 mg tablet 1 mg PO HS PRN Insomnia 05/21/22 09/26/22 History hyoscyamine sulfate 0.125 mg tablet 0.125 mg PO HS PRN Gi Upset 05/21/22 History lorazepam 0.5 mg tablet 0.5 mg PO HS PRN Anxiety 05/21/22 09/26/22 History budesonide 0.5 mg/2 mL suspension 0.5 mg (2 mL) inhalation BID #120 06/05/22 09/26/22 Rx for nebulization mL ipratropium 0.5 mg-albuterol 3 mg 3 ml inhalation Q4H PRN 06/05/22 09/26/22 Rx (2.5 mg base)/3 mL nebulization sob/wheezing #180 mL soln tiotropium bromide 18 mcg capsule 1 cap inhalation DAILY #60 06/05/22 09/26/22 Rx with inhalation device (Spiriva inhalations with HandiHaler) atorvastatin 10 mg tablet 10 mg PO QPM #90 tabs 06/13/22 09/26/22 Rx metoprolol tartrate 50 mg tablet 25 mg PO BID #90 tabs 06/13/22 09/26/22 Rx glyburide 2.5 mg tablet 2.5 mg PO BID #180 tabs 07/13/22 09/26/22 Rx isosorbide mononitrate 60 mg 60 mg PO QAM #90 tabs 07/13/22 09/26/22 Rx tablet,extended release 24 hr quetiapine 25 mg tablet (Seroquel) 25 mg PO BID #90 tabs 07/28/22 09/26/22 Rx clotrimazole 1 % topical solution See Rx Instructions topical BID 08/11/22 09/26/22 Rx #30 mL celecoxib 100 mg capsule 100 mg PO DAILY #90 caps 08/28/22 09/26/22 Rx Past Med/Surg History Medical History Advanced COPD Anemia Anxiety CAD (coronary artery disease) (10/04/13) Colonoscopy planned 06/13/[address] Stanton Dementia, vascular Diabetes mellitus Diverticulitis Diverticulosis Fall Fracture, ribs Generalized osteoarthritis GERD (gastroesophageal reflux disease) Heart failure with preserved ejection fraction History of asthma Hyperlipidemia Hypertension Inguinal hernia b/l? Injury of hip, right Leg edema Moderate persistent asthma Monoclonal B-cell lymphocytosis Obstructive sleep apnea moderate [03/2017] Periodic limb movement disorder Pulmonary emboli 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 hearing loss (SNHL) of both ears Splenomegaly (12/19/12) Surgical History History of bilateral hip replacements History of prostatectomy History of tonsillectomy S/P colonoscopy S/P hernia repair S/P vasectomy Family History Family/Other Myocardial infarction Stroke Sister Diabetes Mother Cardiac disorder Myocardial infarction Grandmother Cardiac disorder Hypertension Grandfather Cardiac disorder Hypertension Denies family history of Esophageal cancer Ovarian cancer Prostate cancer Crohn's disease Breast cancer Colorectal cancer Social History Smoking Status: Never smoker Second Hand Exposure: No; Hx Alcohol Use: No Hx Substance Use: No Preferred Language: Sinhala Communication Ability: Impaired Visual Impairment: Partially Limited Hearing Ability: Hard of Hearing Music Video Producer Required: No Beliefs That Will Affect Care: None marital status: Current Living Situation: Spouse current occupational status: retired Feels Safe at Home: Yes Childhood Exposure to Second-Hand Smoke: No Dental Care, Regularly: Yes Physical Activity Frequency: Does not Exercise Seatbelt Use: never Sunscreen Use: No Assistive Devices: Glasses, Oxygen - at Night and Walker Review of Systems Review of Systems: All systems reviewed & are unremarkable except as noted in Subjective Physical Exam Physical Exam: General: Oriented to name only. No acute distress. Wearing nasal cannula HEENT: Atraumatic, normocephalic. Vision/hearing grossly intact Pulm: Diffusely wheezy, with worsened end expiratory wheezes. No rales symmetrical chest rise. No increase in work of breathing. No respiratory distress. Cardiac: Regular, tachycardic. Radial pulses intact and symmetrical. Abdominal: Nontender, nondistended, soft. BS present. Extremities: Grossly intact, moving all extremities equally. Endorses some discomfort in his left knee chronically, nontender to palpation/exam. Sensation of soft touch intact in hands and feet bilaterally Results & Data Results & Data ([facility]) Vital Signs (Past 12 Hours) Vital Signs Temp Pulse Pulse Resp BP BP Pulse Ox 09/26/22 02:20 106 H 14 97 09/26/22 02:10 115 H 8 L 95 09/26/22 02:00 111 H 24 96 09/26/22 02:00 120/81 09/26/22 01:50 106 H 13 98 09/26/22 01:45 151/81 H 09/26/22 01:45 109 H 24 96 09/26/22 01:40 110 H 23 09/26/22 01:30 85 L 09/26/22 01:20 34 H 90 09/26/22 01:10 106 H 21 93 09/26/22 01:00 104 H 21 97 09/26/22 01:00 150/104 H 09/26/22 00:59 155/90 H 09/26/22 00:59 34 H 97 09/26/22 00:50 106 H 21 97 09/26/22 00:42 112 H 19 94 09/26/22 01:24 106 H 96 09/26/22 00:48 37.6 C H 106 H 15 150/104 H 96 09/26/22 00:48 37.6 C H 106 H 15 150/104 H 97 09/26/22 00:48 O2 Del Method O2 Flow Rate 09/26/22 02:20 09/26/22 02:10 09/26/22 02:00 09/26/22 02:00 09/26/22 01:50 09/26/22 01:45 09/26/22 01:45 09/26/22 01:40 09/26/22 01:30 09/26/22 01:20 09/26/22 01:10 09/26/22 01:00 09/26/22 01:00 09/26/22 00:59 09/26/22 00:59 09/26/22 00:50 09/26/22 00:42 09/26/22 01:24 Nasal Cannula 3 09/26/22 00:48 Nasal Cannula 3 09/26/22 00:48 Nasal Cannula 3 09/26/22 00:48 Nasal Cannula 3 PG Care Time/CCT Total # of Minutes Spent Total Time Spent with Patient: Total time spent is greater than 50% in coordination of care (as documented) at patient's floor/unit and/or counseling patient: Coding Level of Care Code 49593 Initial Inpt Care Lvl 2 Diagnoses Hypoxia R09.02 History of asthma Z87.09 Moderate persistent asthma J45.40 Asthma complication type: uncomplicated Obstructive sleep apnea G47.33 CAD (coronary artery disease) I25.118 Associated angina: with stable angina Coronary Disease-Associated Artery/Lesion type: [place] artery [place] vs. transplanted heart: [place] heart Dementia, vascular F01.50 Dementia behavioral disturbance: without behavioral disturbance Diabetes mellitus E11.9 Diabetes mellitus complication status: without complication Diabetes mellitus termination clerk insulin use: without usp use Diabetes mellitus type: type 2 Obesity (BMI 30-39.9) E66.9 Hypertension I10 Hypertension type: essential hypertension Influenza A J10.1 (1) Dementia, vascular Dementia behavioral disturbance: without behavioral disturbance Qualified Code(s): F01.50 - Vascular dementia without behavioral disturbance (2) Diabetes mellitus Diabetes mellitus complication status: without complication Diabetes mellitus usp insulin use: without termination clerk use Diabetes mellitus type: type 2 Qualified Code(s): E11.9 - Type 2 diabetes mellitus without complications (3) CAD (coronary artery disease) Associated angina: with stable angina Coronary Disease-Associated Artery/Lesion type: [place] artery [place] vs. transplanted heart: [place] heart Qualified Code(s): I25.118 - Atherosclerotic heart disease of [place] coronary artery with other forms of angina pectoris (4) Moderate persistent asthma Asthma complication type: uncomplicated Qualified Code(s): J45.40 - Moderate persistent asthma, uncomplicated (5) Hypertension Hypertension type: essential hypertension Qualified Code(s): I10 - Essential (primary) hypertension
[2022-09-26] MEDS ORDERED: METOPROLOL TARTRATE 50 MG TAB PO STA (03:28)
[2022-09-26] MEDS ORDERED: ALBUT/IPRATROP 3MG/0.5MG NEB 3 ML VIAL INH PRN (03:32)
[2022-09-26] MEDS ORDERED: HYOSCYAMINE SULFATE 0.125 MG TAB PO PRN (03:32)
[2022-09-26] MEDS ORDERED: PHARMACY GLYCEMIC MGMT CONSULT PRN (03:32)
[2022-09-26] MEDS ORDERED: GLUCAGON FOR INJ 1 MG VIAL SQ PRN (03:32)
[2022-09-26] MEDS ORDERED: GLUCOSE 40% GEL 15 GM TUBE PO PRN (03:32)
[2022-09-26] MEDS ORDERED: MAGNESIUM SULFATE / D5W 1 GM/100 ML BAG IV ONE (03:32)
[2022-09-26] MEDS ORDERED: ACETAMINOPHEN 325 MG TAB PO PRN (03:32)
[2022-09-26] MEDS ORDERED: DEXTROSE 50% 50 ML SYRINGE IV PRN (03:32)
[2022-09-26] MEDS ORDERED: traMADol HCL 50 MG TABLET PO PRN (03:32)
[2022-09-26] MEDS ORDERED: GLUCOSE 10 TAB/TUBE PO PRN (03:32)
[2022-09-26] MEDS ORDERED: CARBOHYDRATES FOR HYPOGLYCEMIA PO PRN (03:32)
[2022-09-26] MEDS: Patient's HEIGHT &/or WEIGHT Needed SCH ×2 (06:39→06:47)
[2022-09-26] MEDS: BUDESONIDE 0.5 MG/2 ML VIAL (PULMICORT) INH SCH ×3 (07:00→21:08)
[2022-09-26 07:13] LABS: Estimated Average Glucose 143 mg/dl; Hemoglobin A1C 6.6 % (4.5-5.6)
[2022-09-26] MEDS ORDERED: PANTOprazole 40 MG TAB ONE (08:09)
[2022-09-26] MEDS ORDERED: OSELTAMIVIR PHOSPHATE 75 MG CAP ONE (08:09)
--- NOTE | 2022-09-26 08:10 | XRay Report ---
XR chest 1V portable HISTORY: Dyspnea COMPARISON: Chest 05/20/2022. FINDINGS: No pneumothorax. The cardiac silhouette remains mildly enlarged. There are low lung volumes . Left basilar linear densities are noted. No pleural effusions. There is mild central pulmonary vasc ular congestion without overt edema. Advanced degenerative changes again noted within the shoulders. IMPRESSION: 1. Cardiomegaly with mild central pulmonary vascular congestion without overt edema. 2. Left basilar linear densities may represent subsegmental atelectasis or a developing pneumonia. ACT 112: Negative or not required by law. Electronically signed by: Casa Vieira M.D. 09/26/2022 8:09 AM
[2022-09-26] MEDS: LANTUS PER UNIT CHARGE SQ SCH ×2 (09:35→22:16)
[2022-09-26] MEDS: METOPROLOL TARTRATE 25 MG TAB PO SCH ×2 (09:40→22:04)
[2022-09-26] MEDS: FUROSEMIDE 40 MG TAB PO SCH (09:40)
[2022-09-26] MEDS: OSELTAMIVIR PHOSPHATE 75 MG CAP PO SCH ×2 (09:40→22:04)
[2022-09-26] MEDS: ISOSORBIDE MONO EXTENDED REL 60 MG TABCR PO SCH (09:40)
[2022-09-26] MEDS: QUEtiapine FUMARATE 25 MG TABLET PO SCH ×2 (09:41→22:03)
[2022-09-26] MEDS: UMECLIDINIUM BROMIDE 62.5MCG/BLISTER 7 PUFFS/INHALER INH SCH (09:41)
[2022-09-26] MEDS: INSULIN ASPART PER UNIT SC SCH ×4 (09:45→22:15)
[2022-09-26] MEDS ORDERED: ENOXAPARIN INJ 40 MG/0.4 ML SYR SQ SCH (10:00)
--- NOTE | 2022-09-26 13:13 | Pharmacy Report ---
Pharmacy Glycemic Short Note 2 - Date of Service September 26, 2022 - Glycemic Short BSG Results (Last 24 hours): 09/26/22 09/26/22 00:56 08:21 Glucose 127 H POC Glucose 218 H OUTPATIENT ANTIDIABETIC REGIMEN: * Metformin, Glyburide * A1c 6.6% 09/26/22 ASSESSMENT: * Patient admitted with influenza A, received a dose of 125 mg solu-medrol IV x 1, continuing 40 mg IV q12 * BSG elevated this morning, conservative lantus started and weight based novolog stress of 2 * Will monitor for need to tighten parameters secondary to steroid use. PLAN FOR INPATIENT GLYCEMIC CONTROL: * Hold outpatient oral diabetes medications * Basal insulin * Lantus 5 units SQ BID * Bolus insulin * NovoLog per scale ACHS or Q6hrs while NPO * Goal Range: Low 110 mg/dL - High 140 mg/dL * Correction Factor: 25 mg/dL/unit * Nutritional / Prandial insulin per carb ratio of 1 unit per 8 grams CHO consumed
[2022-09-26] MEDS: methylPREDNISolone 40 MG in SYRINGE 0 ML IV SCH (13:28)
--- NOTE | 2022-09-26 16:12 | Hospitalist Progress Note ---
Date of Service September 26, 2022 Assessment & Plan (1) Hypoxia: Plan: AHRF 2/2 Acute Asthma Exacerbation, 2/2 Influenza A - Wheezing, SoB, Hypoxia to 3L. 80s in field - No home oxygen requirement per patient, chart review reveals he is noncompliant with BiPAP and is recommended for oxygen nightly. Continue while inpatient. - Wheezing on exam Patient and son report 2 days of symptoms, with up to 5 days of weakness. Patient increased risk of complications of flu 2/2 underlying asthma and hypoxia, no renal dysfunction, will treat with Tamiflu 75 mg twice daily x5 days. Methylprednisolone 125 given in ER, continue 40 twice daily with home PPI for gastric protection-patient was on room air and doing quite well when I saw him 12 hours after admission Nebs every 4 hours as needed Type II DM Hold home metformin and low dose glyburide for now till normal diet resumed- for these are home meds. Glyburide 2 and 2.5 mg daily considering blood sugars 217 and 218 even with minimal p.o. intake On metformin and glipizide Basal bolus SSI DM diet Hemoglobin A1c 6.6% Glucose checks AC/at bedtime GERD Protonix daily CAD Continue metoprolol 25 mg p.o. twice daily Continue isosorbide Continue Lasix 40 daily Continue atorvastatin 10 mg daily High sensitive troponin normal, BNP normal, no arrhythmia on EKG. No evidence of arrhythmia/ACS/acute CHF on admission BISI Noncompliant with BiPAP at night per pulmonology note from May of this year Supplemental oxygen at night was mentioned in that note-need to clarify with family if uses. While awake oxygen saturation excellent now Vascular dementia Delirium precautions Continue home Haldol 1 mg p.o. at bedtime as needed for insomnia (not the best sleep aid for an 82-year-old with dementia-but will not change it) Continue home lorazepam 0.5 mg p.o. nightly as needed for anxiety Continue quetiapine 25 mg p.o. twice daily around 3 pm to 5 pm today :Dysphagia : 2 episodes of coughing up chicken pieces that he had eaten was seen. Bedside swallowing evaluation he was pretty normal and he is on a full liquid diet. Speech evaluation in the morning. Also since his pupils were unequal, there was concern for an acute strokelike presentation. He had a stat CT scan around 5 PM that only reveals a chronic ischemic changes and no acute changes. DVT prophylaxis: Lovenox Disposition: Medical/surgical CODE STATUS: Full code Diet: DM, heart healthy (2) Moderate persistent asthma: (3) Obstructive sleep apnea: (4) CAD (coronary artery disease): (5) Dementia, vascular: (6) Diabetes mellitus: (7) Obesity (BMI 30-39.9): (8) Hypertension: (9) Influenza A: Plan 1.Speech therapy evaluation in the morning given likely aspiration of solid food todaybedside swallowing was fine with liquids. Placed on a full liquid diet 2. Given that the patient was in hospice until recently, CODE STATUS needs to be readdressed 3. OT. PT evaluation for dispositionwill likely need [facility] facility in the short-term at least. eager to take him home Patient's granddaughter Amy is a registered nurse on the same floor the patient is located. Admission and Anticipated Discharge Date Admission Date: September 26, 2022 Subjective seen at 1600 h at bedside providing history. 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 Has been getting progressively weak and complaining of knee pain. Asking for help to get up from a sitting position and for the last couple of days not able to stay standing when helped up and plopping right back into his chair. states that the patient's cough is better than it was yesterday at admission. Appetite has been very good. No urinary symptoms. No diarrhea/nausea/vomiting/abdominal pain Some years ago was diagnosed with hemorrhoids. No recent bloody stool Smoked for a couple of years, very rare alcohol intake She gave him some chicken to eat and he coughed it up soon after. This was also observed by nursing. Of note patient was on hospice until few days ago when it was stopped Physical Exam Physical Exam: at 1600 and then at 1715, follows commands, was unable to tell me his name nor his granddaughter or 's name which appears to be about baseline, could not name the building he was in, Head and neck moist oral mucosa CHEST : CTA Left pupil about 3 mm minimally reactive, right pupil about 1.5 mm reactive to light 5 /5 power elbow flexors and knee extensors. Results & Data Results & Data ([facility]) Vital Signs (Past 12 Hours) Vital Signs Temp Pulse Pulse Resp BP BP Pulse Ox 09/26/22 15:29 36.8 C 74 16 146/68 H 94 09/26/22 14:00 67 20 95 09/26/22 14:00 146/72 H 09/26/22 13:00 62 15 90 09/26/22 12:36 36.7 C 95 09/26/22 12:00 61 20 09/26/22 12:00 111/61 09/26/22 11:00 64 26 H 09/26/22 11:00 129/62 09/26/22 10:01 73 22 132/85 95 09/26/22 09:00 63 22 137/83 97 09/26/22 08:02 69 24 162/81 H 99 09/26/22 08:36 09/26/22 07:00 60 16 157/79 H 98 09/26/22 07:03 57 L 16 100 09/26/22 05:03 67 17 167/78 H 98 09/26/22 05:00 64 22 167/78 H 98 O2 Del Method O2 Flow Rate 09/26/22 15:29 Room Air 09/26/22 14:00 Room Air 09/26/22 14:00 09/26/22 13:00 09/26/22 12:36 Room Air 09/26/22 12:00 09/26/22 12:00 09/26/22 11:00 09/26/22 11:00 09/26/22 10:01 Nasal Cannula 3 09/26/22 09:00 Nasal Cannula 3 09/26/22 08:02 Nasal Cannula 3 09/26/22 08:36 Nasal Cannula 2 09/26/22 07:00 Nasal Cannula 3 09/26/22 07:03 Nasal Cannula 3 09/26/22 05:03 Nasal Cannula 3 09/26/22 05:00 Nasal Cannula 2 Laboratory Results 09/26/22 04:04 Aerobic Blood Culture - Pending Blood Anaerobic Blood Culture - Pending 09/26/22 04:04 Aerobic Blood Culture - Pending Blood Anaerobic Blood Culture - Pending 09/26/22 09/26/22 09/26/22 16:52 13:30 08:21 WBC RBC Hgb Hct MCV MCH MCHC RDW Std Deviation RDW Coeff of Haley Plt Count MPV Immature Gran % (Auto) Neut % (Auto) Lymph % (Auto) [place] % (Auto) Eos % (Auto) Baso % (Auto) Neut # (Auto) Lymph # (Auto) [place] # (Auto) Eos # (Auto) Baso # (Auto) Immature Gran # (Auto) Platelet Estimate PT INR VBG pH VBG pCO2 VBG pO2 VBG HCO3 VBG O2 Saturation VBG Base Excess Sodium Potassium Chloride Carbon Dioxide Anion Gap BUN Creatinine Est Cr Clr Drug Dosing Est GFR ( Amer) Est GFR (Non-Af Amer) BUN/Creatinine Ratio Glucose POC Glucose 217 H 246 H 218 H Estimat Average Glucose Hemoglobin A1c Calcium Total Bilirubin AST ALT Alkaline Phosphatase Troponin I High Sens B-Natriuretic Peptide Total Protein Albumin Globulin Albumin/Globulin Ratio Procalcitonin Urine Color Urine Appearance Urine pH Ur Specific [place] Urine Protein Urine Glucose (UA) Urine Ketones Urine Blood Urine Nitrite Urine Bilirubin Urine Urobilinogen Ur Leukocyte Esterase Urine WBC (Auto) Urine RBC (Auto) U Hyaline Cast (Auto) U Epithel Cells (Auto) Urine Bacteria (Auto) SARS-CoV-2 (PCR) Influenza Type A (PCR) Influenza Type B (PCR) RSV (RT-PCR) 09/26/22 09/26/22 09/26/22 04:08 01:35 00:58 WBC RBC Hgb Hct MCV MCH MCHC RDW Std Deviation RDW Coeff of Haley Plt Count MPV Immature Gran % (Auto) Neut % (Auto) Lymph % (Auto) [place] % (Auto) Eos % (Auto) Baso % (Auto) Neut # (Auto) Lymph # (Auto) [place] # (Auto) Eos # (Auto) Baso # (Auto) Immature Gran # (Auto) Platelet Estimate PT INR VBG pH VBG pCO2 VBG pO2 VBG HCO3 VBG O2 Saturation VBG Base Excess Sodium Potassium Chloride Carbon Dioxide Anion Gap BUN Creatinine Est Cr Clr Drug Dosing Est GFR ( Amer) Est GFR (Non-Af Amer) BUN/Creatinine Ratio Glucose POC Glucose Estimat Average Glucose 143 Hemoglobin A1c 6.6 H Calcium Total Bilirubin AST ALT Alkaline Phosphatase Troponin I High Sens B-Natriuretic Peptide Total Protein Albumin Globulin Albumin/Globulin Ratio Procalcitonin < 0.05 Urine Color Yellow Urine Appearance Clear Urine pH 5.0 Ur Specific [place] 1.024 Urine Protein 2+ H Urine Glucose (UA) Negative Urine Ketones Trace H Urine Blood Negative Urine Nitrite Negative Urine Bilirubin Negative Urine Urobilinogen Negative Ur Leukocyte Esterase Negative Urine WBC (Auto) 0 Urine RBC (Auto) 0-4 U Hyaline Cast (Auto) 1-5 U Epithel Cells (Auto) 5-10 H Urine Bacteria (Auto) Negative SARS-CoV-2 (PCR) Influenza Type A (PCR) Influenza Type B (PCR) RSV (RT-PCR) 09/26/22 09/26/22 09/26/22 00:56 00:56 00:56 WBC RBC Hgb Hct MCV MCH MCHC RDW Std Deviation RDW Coeff of Haley Plt Count MPV Immature Gran % (Auto) Neut % (Auto) Lymph % (Auto) [place] % (Auto) Eos % (Auto) Baso % (Auto) Neut # (Auto) Lymph # (Auto) [place] # (Auto) Eos # (Auto) Baso # (Auto) Immature Gran # (Auto) Platelet Estimate PT INR VBG pH 7.44 H VBG pCO2 44 VBG pO2 59 VBG HCO3 30 VBG O2 Saturation 90.6 VBG Base Excess 5.0 Sodium 140 Potassium 3.6 Chloride 105 Carbon Dioxide 27 Anion Gap 8 BUN 18 Creatinine 0.89 Est Cr Clr Drug Dosing Not Reportable Est GFR ( Amer) 91.6 Est GFR (Non-Af Amer) 79.1 BUN/Creatinine Ratio 20.2 H Glucose 127 H POC Glucose Estimat Average Glucose Hemoglobin A1c Calcium 8.7 Total Bilirubin 0.5 AST 17 ALT 21 Alkaline Phosphatase 69 Troponin I High Sens 11.9 B-Natriuretic Peptide 72 Total Protein 7.1 Albumin 4.1 Globulin 3.0 Albumin/Globulin Ratio 1.4 Procalcitonin Urine Color Urine Appearance Urine pH Ur Specific [place] Urine Protein Urine Glucose (UA) Urine Ketones Urine Blood Urine Nitrite Urine Bilirubin Urine Urobilinogen Ur Leukocyte Esterase Urine WBC (Auto) Urine RBC (Auto) U Hyaline Cast (Auto) U Epithel Cells (Auto) Urine Bacteria (Auto) SARS-CoV-2 (PCR) Influenza Type A (PCR) Influenza Type B (PCR) RSV (RT-PCR) 09/26/22 09/26/22 09/26/22 00:56 00:56 00:50 WBC 6.26 RBC 4.49 L Hgb 13.2 L Hct 39.4 L MCV 87.8 MCH 29.4 MCHC 33.5 RDW Std Deviation 44.0 RDW Coeff of Haley 13.9 Plt Count 96 L MPV 9.5 Immature Gran % (Auto) 0.3 Neut % (Auto) 57.5 Lymph % (Auto) 29.2 [place] % (Auto) 12.5 Eos % (Auto) 0.3 Baso % (Auto) 0.2 Neut # (Auto) 3.60 Lymph # (Auto) 1.83 [place] # (Auto) 0.78 Eos # (Auto) 0.02 Baso # (Auto) 0.01 Immature Gran # (Auto) 0.02 Platelet Estimate Decreased L PT 11.2 INR 1.1 VBG pH VBG pCO2 VBG pO2 VBG HCO3 VBG O2 Saturation VBG Base Excess Sodium Potassium Chloride Carbon Dioxide Anion Gap BUN Creatinine Est Cr Clr Drug Dosing Est GFR ( Amer) Est GFR (Non-Af Amer) BUN/Creatinine Ratio Glucose POC Glucose Estimat Average Glucose Hemoglobin A1c Calcium Total Bilirubin AST ALT Alkaline Phosphatase Troponin I High Sens B-Natriuretic Peptide Total Protein Albumin Globulin Albumin/Globulin Ratio Procalcitonin Urine Color Urine Appearance Urine pH Ur Specific [place] Urine Protein Urine Glucose (UA) Urine Ketones Urine Blood Urine Nitrite Urine Bilirubin Urine Urobilinogen Ur Leukocyte Esterase Urine WBC (Auto) Urine RBC (Auto) U Hyaline Cast (Auto) U Epithel Cells (Auto) Urine Bacteria (Auto) SARS-CoV-2 (PCR) NEGATIVE Influenza Type A (PCR) Positive A* Influenza Type B (PCR) Negative RSV (RT-PCR) Negative PG Care Time/CCT Total # of Minutes Spent Total Time Spent with Patient: Total time spent is greater than 50% in coordination of care (as documented) at patient's floor/unit and/or counseling patient: Coding Level of Care Code 05308 Subseq Hosp Care Lvl 3 Diagnoses Hypoxia R09.02 Moderate persistent asthma J45.40 Asthma complication type: uncomplicated Obstructive sleep apnea G47.33 CAD (coronary artery disease) I25.118 Associated angina: with stable angina Coronary Disease-Associated Artery/Lesion type: [place] artery [place] vs. transplanted heart: [place] heart Dementia, vascular F01.50 Dementia behavioral disturbance: without behavioral disturbance Diabetes mellitus E11.9 Diabetes mellitus complication status: without complication Diabetes mellitus penitentiary insulin use: without penitentiary use Diabetes mellitus type: type 2 Obesity (BMI 30-39.9) E66.9 Hypertension I10 Hypertension type: essential hypertension Influenza A J10.1 (1) Dementia, vascular Dementia behavioral disturbance: without behavioral disturbance Qualified Code(s): F01.50 - Vascular dementia without behavioral disturbance (2) Diabetes mellitus Diabetes mellitus complication status: without complication Diabetes mellitus emt intermediate insulin use: without penitentiary use Diabetes mellitus type: type 2 Qualified Code(s): E11.9 - Type 2 diabetes mellitus without complications (3) CAD (coronary artery disease) Associated angina: with stable angina Coronary Disease-Associated Artery/Lesion type: [place] artery [place] vs. transplanted heart: [place] heart Qualified Code(s): I25.118 - Atherosclerotic heart disease of [place] coronary artery with other forms of angina pectoris (4) Moderate persistent asthma Asthma complication type: uncomplicated Qualified Code(s): J45.40 - Moderate persistent asthma, uncomplicated (5) Hypertension Hypertension type: essential hypertension Qualified Code(s): I10 - Essential (primary) hypertension
--- NOTE | 2022-09-26 16:56 | CT Scan Report ---
CT SCAN OF THE BRAIN WITHOUT IV CONTRAST CLINICAL HISTORY: Difficult with word finding. Aspiration. COMPARISON STUDY: CT of the brain dated 05/21/2022. TECHNIQUE: Unenhanced axial CT scan of the brain is performed from the vertex to the skull base. A do se lowering technique was utilized adhering to the principles of ALARA. CT DOSE: 884.08 mGy.cm FINDINGS: Brain parenchyma: There is age-related involutional change noting mild to moderate subcortical and pe riventricular microangiopathic disease. There is no hemorrhage, mass effect, or evidence of acute ter ritorial ischemia by CT criteria. Duran-white matter differentiation is preserved. No extra-axial flui d collection is seen. Ventricles, sulci, cisterns: Prominent secondary to involutional change. Intracranial vasculature: There is atherosclerotic calcification of the cavernous carotid arteries. Calvarium: Unremarkable. Sinuses and mastoids: There is mild mucosal thickening within the maxillary antra. An air-fluid level seen on the left. The remaining paranasal sinuses are clear. The mastoid air cells are well pneumati zed. Orbits: The bony orbits are grossly intact. There are bilateral ocular lens implants. The has been bi lateral ocular globe banding. IMPRESSION: There is no hemorrhage, mass effect, or evidence of acute territorial ischemia by CT diana vivar. ACT 112: Negative or not required by law. Electronically signed by: Ananda Sweeney M.D. 09/26/2022 4:53 PM
[2022-09-26] MEDS: ATORVASTATIN 10 MG TAB PO SCH (22:03)
[2022-09-26] MEDS: haloperidoL 1 MG TAB PO PRN (22:03)
[2022-09-26] MEDS: MONTELUKAST SODIUM 10 MG TABLET PO SCH (22:03)
[2022-09-27] MEDS: methylPREDNISolone 40 MG in SYRINGE 0 ML IV SCH ×3 (00:24→20:34)
[2022-09-27] MEDS ORDERED: glyBURIDE 2.5 MG TAB PO SCH (07:30)
[2022-09-27] MEDS: BUDESONIDE 0.5 MG/2 ML VIAL (PULMICORT) INH SCH ×2 (07:35→20:14)
[2022-09-27] MEDS: PANTOprazole 40 MG TAB PO SCH (07:43)
[2022-09-27] MEDS: FUROSEMIDE 40 MG TAB PO SCH (07:43)
[2022-09-27] MEDS: METOPROLOL TARTRATE 25 MG TAB PO SCH ×2 (07:43→20:33)
[2022-09-27] MEDS: ISOSORBIDE MONO EXTENDED REL 60 MG TABCR PO SCH (07:43)
[2022-09-27] MEDS: QUEtiapine FUMARATE 25 MG TABLET PO SCH ×2 (07:43→20:31)
[2022-09-27] MEDS: UMECLIDINIUM BROMIDE 62.5MCG/BLISTER 7 PUFFS/INHALER INH SCH (07:44)
[2022-09-27] MEDS: OSELTAMIVIR PHOSPHATE 75 MG CAP PO SCH ×2 (07:44→20:35)
[2022-09-27 08:14] LABS: Hematocrit (blood only) 38.4 % (40.1-51.0); Hemoglobin 12.7 g/dl (14.0-18.0); Immature Granulocytes # (auto) 0.05 K/uL (0.00-0.02); Immature Granulocytes % (auto) 0.7 %; Lymphocytes # (auto) 0.79 K/uL (1.2-3.4); Lymphocytes % (auto) 10.6 %; Mean Corpuscular Hemoglobin 29.5 pg (25.0-34.0); Mean Corpuscular Hgb Conc 33.1 g/dL (32.0-36.0); Mean Corpuscular Volume 89.3 fL (80.0-100.0); Mean Platelet Volume 10.3 fL (9.4-12.4); Monocytes # (auto) 0.44 K/uL (0.24-0.82); Monocytes % (auto) 5.9 %; Neutrophils # (auto) 6.14 K/uL (1.4-6.5); Neutrophils % (auto) 82.8 %; Platelet Count 104 K/uL (130-400); RDW Coefficient of Variation 13.8 % (11.5-14.5); RDW Standard Deviation 44.4 fL (36.4-46.3); White Blood Count 7.42 K/ul (4.8-10.8)
[2022-09-27] MEDS: INSULIN ASPART PER UNIT SC SCH ×4 (08:29→20:33)
[2022-09-27 08:33] LABS: BUN Creatinine Ratio 33.3 (10-20); Calcium 8.9 mg/dl (8.5-10.1); Creatinine Clr Calc Pharmacy 66.1 ml/min; Est GFR (African American) 84.4 ml/min; Est GFR (Non-African American) 72.8 ml/min; Potassium 4.3 mmol/L (3.5-5.1)
--- NOTE | 2022-09-27 13:13 | Pharmacy Report ---
Pharmacy Glycemic Short Note 2 - Date of Service September 27, 2022 - Glycemic Short BSG Results (Last 24 hours): 09/26/22 09/26/22 09/26/22 13:30 16:52 20:09 Glucose POC Glucose 246 H 217 H 215 H 09/27/22 09/27/22 09/27/22 07:19 07:36 11:42 Glucose 292 H POC Glucose 270 H 149 H OUTPATIENT ANTIDIABETIC REGIMEN: * Metformin, Glyburide * A1c 6.6% 09/26/22 ASSESSMENT: 09/27/22 * Patient's BSGs yesterday were [phone] mg/dL. Patient received 33 units of insulin (10 of basal and 23 units of bolus). * Fasting today is 270 mg/dL. * Patient historically has low basal requirements. Give 10 units of Lantus in AM then 5 units HS (represents 50% increase). * Tighten Novolog substantially as BSGs not controlled yesterday. Background * Patient admitted with influenza A, received a dose of 125 mg solu-medrol IV x 1, continuing 40 mg IV q12 * BSG elevated this morning, conservative lantus started and weight based novolog stress of 2 * Will monitor for need to tighten parameters secondary to steroid use. PLAN FOR INPATIENT GLYCEMIC CONTROL: * Hold outpatient oral diabetes medications * Basal insulin * Lantus 10 units SQ in AM then 5 units in the evening * Bolus insulin * NovoLog per scale ACHS or Q6hrs while NPO * Goal Range: Low 110 mg/dL - High 140 mg/dL * Correction Factor: 18 mg/dL/unit * Nutritional / Prandial insulin per carb ratio of 1 unit per 4 grams CHO consumed
[2022-09-27] MEDS ORDERED: FEXOFENADINE HCL 180 MG TAB PO STA (13:38)
[2022-09-27] MEDS ORDERED: IPRATROPIUM BROMIDE NASAL SPRAY 0.06% 15ML NAE ONE (13:45)
--- NOTE | 2022-09-27 18:43 | Hospitalist Progress Note ---
Date of Service September 27, 2022 Assessment & Plan (1) Hypoxia: Plan: Secondary acute Asthma Exacerbation, Influenza A (2) Influenza A: Plan: Tamiflu 75 mg p.o. twice daily for 5 days (3) Asthma exacerbation: Plan: Continue solu-medrol 40mg IV BID, consider switch to prednisone once GI issues resolved Duonebs QID (4) Esophageal dysphagia: Plan: 2 episodes of coughing up to complete this. Improved on a full liquid diet. Seen by speech and language today and recommended GI consult prior to any video swallow due to known esophageal dysphagia. 2012 barium swallow study found showing history of esophageal ring and dysmotility for at least the last 10 yea rs. Will trial advancing his diet to pured today to see how he does. Consult gastroenterology for consideration of EGD either soon as an outpatient (given current respiratory illness) or inpatient (if unable to keep up with nutritional intake) (5) Unequal pupil diameter: Plan: CT head with no pathology MRI brain ordered (6) Moderate persistent asthma: Plan: Continue Incruse Ellipta and Singulair Continue budesonide nebulizer twice daily (7) Obstructive sleep apnea: Plan: CPAP HS (8) CAD (coronary artery disease): Plan: Continue metoprolol 25 mg p.o. twice daily Continue isosorbide Continue Lasix 40 daily Continue atorvastatin 10 mg daily High sensitive troponin normal, BNP normal, no arrhythmia on EKG. No evidence of arrhythmia/ACS/acute CHF on admission (9) Dementia, vascular: Plan: Delirium precautions Continue home Haldol 1 mg p.o. at bedtime as needed for insomnia (not the best sleep aid for an 82-year-old with dementia-but will not change it) Continue home lorazepam 0.5 mg p.o. nightly as needed for anxiety Continue quetiapine 25 mg p.o. twice daily (10) Diabetes mellitus: Plan: Hemoglobin A1c 6.6% Increase Lantus to 10 units BID Novolog: --Goal BSG Range: Low 110 mg/dL, High 140 mg/dL --Correction Factor: 18 mg/dL/unit --Carbohydrate ratio = 4 g/unit --BSGs ACHS if eating, q6h if npo Appreciate pharmacy management for glycemic control (11) Obesity (BMI 30-39.9): (12) Hypertension: Plan: Continue metoprolol tartrate 25 mg p.o. twice daily, furosemide 40 mg p.o. rola ly, isosorbide mononitrate 60 mg p.o. every morning (13) GERD (gastroesophageal reflux disease): Plan: Continue pantoprazole 40 mg p.o. twice daily Plan DVT prophylaxis: Lovenox 40mg SQ QAM Disposition: Medical/surgical CODE STATUS: Full code Diet: DM, heart healthy Admission and Anticipated Discharge Date Admission Date: September 26, 2022 Subjective Unable to get any history from the patient. He denies any problems at the present time. Reportedly coughing up chicken yesterday however tolerating a full liquid diet today. Review of Systems Review of Systems: All systems reviewed & are unremarkable except as noted in Subjective Physical Exam Constitutional: WD/WN, vitals as above Eyes: + no PERRL (Right pupil diameter > left) Respiratory: normal respiratory effort; no respiratory distress Auscultation: + diminished lung sounds (bibasal), + rhonchi and + wheezes Cardiovascular: Rate/Rhythm: regular rhythm and + tachycardic Heart Sounds: no murmur Vessels: no JVD Extremities: normal capillary refill and + pedal edema (trace b/l pitting); no calf tenderness Gastrointestinal (Abdomen): normal bowel sounds, soft, nontender, no hepatosplenomegaly Skin: no rashes, warm and dry Neurologic: moves all extremities and awake; not confused Psychiatric: A+Ox3, euthymic affect Results & Data Results & Data ([facility]) Vital Signs (Past 12 Hours) Vital Signs Temp Pulse Pulse Resp BP BP Pulse Ox 09/27/22 15:40 36.6 C 62 18 127/69 95 09/27/22 15:16 67 09/27/22 11:00 36.8 C 63 18 159/74 H 93 09/27/22 07:36 63 20 91 09/27/22 07:22 36.4 C L 62 17 128/61 92 09/27/22 07:05 69 O2 Del Method 09/27/22 15:40 Room Air 09/27/22 15:16 09/27/22 11:00 Room Air 09/27/22 07:36 Room Air 09/27/22 07:22 Room Air 09/27/22 07:05 PG Care Time/CCT Total # of Minutes Spent Total Time Spent with Patient: Total time spent is greater than 50% in coordination of care (as documented) at patient's floor/unit and/or counseling patient: Coding Level of Care Code 17603 Subseq Hosp Care Lvl 2 Diagnoses Hypoxia R09.02 Influenza A J10.1 Asthma exacerbation J45.901 Esophageal dysphagia R13.19 Unequal pupil diameter H57.02 Moderate persistent asthma J45.40 Asthma complication type: uncomplicated Obstructive sleep apnea G47.33 CAD (coronary artery disease) I25.118 Associated angina: with stable angina Coronary Disease-Associated Artery/Lesion type: [place] artery [place] vs. transplanted heart: [place] heart Dementia, vascular F01.50 Dementia behavioral disturbance: without behavioral disturbance Diabetes mellitus E11.9 Diabetes mellitus complication status: without complication Diabetes mellitus intermediate project manager insulin use: without intermediate project manager use Diabetes mellitus type: type 2 Obesity (BMI 30-39.9) E66.9 Hypertension I10 Hypertension type: essential hypertension GERD (gastroesophageal reflux disease) K21.9 Esophagitis presence: without esophagitis (1) Dementia, vascular Dementia behavioral disturbance: without behavioral disturbance Qualified Code(s): F01.50 - Vascular dementia without behavioral disturbance (2) Diabetes mellitus Diabetes mellitus complication status: without complication Diabetes mellitus fpc insulin use: without intermediate project manager use Diabetes mellitus type: type 2 Qualified Code(s): E11.9 - Type 2 diabetes mellitus without complications (3) CAD (coronary artery disease) Associated angina: with stable angina Coronary Disease-Associated Artery/Lesion type: [place] artery [place] vs. transplanted heart: [place] heart Qualified Code(s): I25.118 - Atherosclerotic heart disease of [place] coronary artery with other forms of angina pectoris (4) Moderate persistent asthma Asthma complication type: uncomplicated Qualified Code(s): J45.40 - Moderate persistent asthma, uncomplicated (5) Hypertension Hypertension type: essential hypertension Qualified Code(s): I10 - Essential (primary) hypertension (6) GERD (gastroesophageal reflux disease) Esophagitis presence: without esophagitis Qualified Code(s): K21.9 - Gastro- esophageal reflux disease without esophagitis
[2022-09-27] MEDS: LORazepam 0.5 MG TAB PO PRN (20:32)
[2022-09-27] MEDS: ATORVASTATIN 10 MG TAB PO SCH (20:33)
[2022-09-27] MEDS: LANTUS PER UNIT CHARGE SQ SCH (20:34)
[2022-09-27] MEDS: MONTELUKAST SODIUM 10 MG TABLET PO SCH (20:35)
[2022-09-27] MEDS: haloperidoL 1 MG TAB PO PRN (23:38)
--- NOTE | 2022-09-28 05:32 | Electrocardiogram Report ---
Test Reason : Blood Pressure : / mmHG Vent. Rate : 111 BPM Atrial Rate : 111 BPM P-R Int : 160 ms QRS Dur : 080 ms QT Int : 328 ms P-R-T Axes : 010 -41 028 degrees QTc Int : 446 ms Sinus tachycardia with Premature supraventricular complexes Left axis deviation Possible Anterior infarct , age undetermined Abnormal ECG When compared with ECG of 20-MAY-2022 23:33, Premature supraventricular complexes are now Present Confirmed by Steve Garcia ([id number]) on 09/28/2022 5:31:48 AM Referred By: REFERRED SELF Confirmed By:Steve Garcia
[2022-09-28] MEDS: BUDESONIDE 0.5 MG/2 ML VIAL (PULMICORT) INH SCH ×2 (07:21→19:44)
[2022-09-28] MEDS: ALBUT/IPRATROP 3MG/0.5MG NEB 3 ML VIAL NEB SCH ×4 (07:22→19:44)
[2022-09-28 07:27] LABS: Hemoglobin 12.9 g/dl (14.0-18.0); Mean Corpuscular Hemoglobin 29.3 pg (25.0-34.0); Mean Corpuscular Hgb Conc 33.1 g/dL (32.0-36.0); Mean Corpuscular Volume 88.6 fL (80.0-100.0); Mean Platelet Volume 10.5 fL (9.4-12.4); Platelet Count 114 K/uL (130-400); RDW Coefficient of Variation 13.8 % (11.5-14.5); RDW Standard Deviation 44.3 fL (36.4-46.3); White Blood Count 8.62 K/ul (4.8-10.8)
[2022-09-28 07:35] LABS: Immature Granulocytes # (auto) 0.04 K/uL (0.00-0.02); Immature Granulocytes % (auto) 0.5 %; Lymphocytes % (auto) 10.4 %; Monocytes # (auto) 0.43 K/uL (0.24-0.82); Neutrophils # (auto) 7.25 K/uL (1.4-6.5); Neutrophils % (auto) 84.1 %; Polychromasia 1+; Toxic Granulation 1+
[2022-09-28 08:14] LABS: Albumin Globulin Ratio 1.3 (0.9-2); Albumin Level 3.8 gm/dl (3.4-5.0); Bilirubin,Total 0.4 mg/dl (0.2-1.0); Calcium 8.7 mg/dl (8.5-10.1); Globulin 2.9 gm/dl (2.5-4.0); Potassium 4.3 mmol/L (3.5-5.1); Total Protein 6.7 gm/dl (6.0-8.3)
[2022-09-28 08:39] LABS: BUN Creatinine Ratio 37.9 (10-20); Est GFR (African American) 92.5 ml/min; Est GFR (Non-African American) 79.8 ml/min
[2022-09-28] MEDS: INSULIN ASPART PER UNIT SC SCH ×4 (08:45→22:10)
[2022-09-28] MEDS: ENOXAPARIN INJ 40 MG/0.4 ML SYR SQ SCH (08:45)
[2022-09-28] MEDS: PANTOprazole 40 MG TAB PO SCH (08:45)
[2022-09-28] MEDS: ISOSORBIDE MONO EXTENDED REL 60 MG TABCR PO SCH (08:45)
[2022-09-28] MEDS: QUEtiapine FUMARATE 25 MG TABLET PO SCH ×2 (08:46→22:08)
[2022-09-28] MEDS: OSELTAMIVIR PHOSPHATE 75 MG CAP PO SCH ×2 (08:46→22:08)
[2022-09-28] MEDS: UMECLIDINIUM BROMIDE 62.5MCG/BLISTER 7 PUFFS/INHALER INH SCH (08:46)
[2022-09-28] MEDS: FUROSEMIDE 40 MG TAB PO SCH (08:46)
[2022-09-28] MEDS: METOPROLOL TARTRATE 25 MG TAB PO SCH ×2 (08:46→22:09)
[2022-09-28] MEDS ORDERED: LANTUS PER UNIT CHARGE SQ SCH ×3 (09:00→21:00)
[2022-09-28] MEDS: methylPREDNISolone 40 MG in SYRINGE 0 ML IV SCH ×2 (09:30→22:07)
--- NOTE | 2022-09-28 09:44 | Gastrointestinal Consultation ---
Date of Consultation September 28, 2022 Assessment & Plan (1) Asthma exacerbation: (2) Influenza A: (3) Dysphagia: (4) GERD (gastroesophageal reflux disease): Plan 1. NPO for now. 2. EGD for further evaluation with Dr. Stanton today. 3. Continue Pantoprazole 40 mg daily. 4. Further recommendations will be made pending results of testing. Thank you for allowing us to participate in the care of this patient. If you have any questions or concerns, please do not hesitate to contact us. Supervising Physician Co-Signing Physician Notes Due to Influenza A infection, and droplet precaution, decision was made jointly with Anesthesia to hold off on EGD until patient recovers from acute illness Recommend continuing supportive care and current medical management. Will reevaluate as patient's acute illness resolves History of Present Illness Reason for Consultation: Dysphagia Requesting Physician: Dr. Snell Attending Physician: Cole Lutz MD History of Present Illness Patient is a 82 y.o. male admitted with influenza A and asthma exacerbation. GI has been consulted in regard to patient's report of dysphagia. He has difficulty describing the dysphagia but states "I just can't swallow". No feeling of food becoming stuck, postprandial vomiting, odynophagia or abdominal pain. Intermittent pyrosis. He endorses worsened symptoms with solids. Allergies Allergy/AdvReac Type Severity Reaction Status Date / Time ibuprofen Allergy Mild ULCERS IN Verified 09/26/22 00:40 MOUTH Home Medications Medication Instructions Recorded Confirmed Type cholecalciferol (vitamin D3) 25 25 mcg PO QAM 03/04/20 09/26/22 History mcg (1,000 unit) capsule (Vitamin D3) acetaminophen 500 mg capsule 500 mg PO Q6H PRN Pain 06/17/20 09/26/22 History furosemide 40 mg tablet (Lasix) 40 mg PO DAILY #90 tabs 12/22/21 09/26/22 Rx montelukast 10 mg tablet 10 mg PO HS #90 tabs 01/16/22 09/26/22 Rx (Singulair) blood sugar diagnostic #100 ea 01/24/22 08/03/22 Rx blood-glucose meter (OneTouch #1 ea 01/24/22 08/03/22 Rx UltraMini kit) metformin 500 mg tablet,extended 500 mg PO BID #180 tabs 02/28/22 09/26/22 Rx release 24 hr tramadol 50 mg tablet 50 mg PO BID PRN pain #60 tabs 03/22/22 09/26/22 Rx haloperidol 1 mg tablet 1 mg PO HS PRN Insomnia 05/21/22 09/26/22 History hyoscyamine sulfate 0.125 mg tablet 0.125 mg PO HS PRN Gi Upset 05/21/22 09/26/22 History lorazepam 0.5 mg tablet 0.5 mg PO HS PRN Anxiety 05/21/22 09/26/22 History budesonide 0.5 mg/2 mL suspension 0.5 mg (2 mL) inhalation BID #120 06/05/22 09/26/22 Rx for nebulization mL ipratropium 0.5 mg-albuterol 3 mg 3 ml inhalation Q4H PRN 06/05/22 09/26/22 Rx (2.5 mg base)/3 mL nebulization sob/wheezing #180 mL soln tiotropium bromide 18 mcg capsule 1 cap inhalation DAILY #60 06/05/22 09/26/22 Rx with inhalation device (Spiriva inhalations with HandiHaler) atorvastatin 10 mg tablet 10 mg PO QPM #90 tabs 06/13/22 09/26/22 Rx metoprolol tartrate 50 mg tablet 25 mg PO BID #90 tabs 06/13/22 09/26/22 Rx glyburide 2.5 mg tablet 2.5 mg PO BID #180 tabs 07/13/22 09/26/22 Rx isosorbide mononitrate 60 mg 60 mg PO QAM #90 tabs 07/13/22 09/26/22 Rx tablet,extended release 24 hr quetiapine 25 mg tablet (Seroquel) 25 mg PO BID #90 tabs 07/28/22 09/26/22 Rx clotrimazole 1 % topical solution See Rx Instructions topical BID 08/11/22 09/26/22 Rx #30 mL celecoxib 100 mg capsule 100 mg PO DAILY #90 caps 08/28/22 09/26/22 Rx Patient History Medical History (Updated 09/28/22 @ 13:09 by Emigdio Hill MD) Advanced COPD Anemia Anxiety CAD (coronary artery disease) (10/04/13) Colonoscopy planned 06/13/[address] Stanton Dementia, vascular Diabetes mellitus Diverticulitis Diverticulosis Encounter for pre-operative examination Fall Fracture, ribs Generalized osteoarthritis GERD (gastroesophageal reflux disease) Heart failure with preserved ejection fraction History of asthma Hyperlipidemia Hypertension Inguinal hernia b/l? Injury of hip, right Leg edema Moderate persistent asthma Monoclonal B-cell lymphocytosis Obstructive sleep apnea moderate [03/2017] Periodic limb movement disorder Pulmonary emboli 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 hearing loss (SNHL) of both ears Splenomegaly (12/19/12) Surgical History History of bilateral hip replacements History of prostatectomy History of tonsillectomy S/P colonoscopy S/P hernia repair S/P vasectomy Family History Family/Other Myocardial infarction Stroke Sister Diabetes Mother Cardiac disorder Myocardial infarction Grandmother Cardiac disorder Hypertension Grandfather Cardiac disorder Hypertension Denies family history of Esophageal cancer Ovarian cancer Prostate cancer Crohn's disease Breast cancer Colorectal cancer Social History Smoking Status: Unknown if ever smoked Second Hand Exposure: No; Hx Alcohol Use: Yes Alcohol type: beer Hx Substance Use: No Preferred Language: Danish Communication Ability: Effective Visual Impairment: Partially Limited Hearing Ability: Hard of Hearing Dramatic Director Required: No Beliefs That Will Affect Care: None marital status: Current Living Situation: Spouse current occupational status: retired Feels Safe at Home: Yes Safety Concerns: Feels Safe At This Time Childhood Exposure to Second-Hand Smoke: No Dental Care, Regularly: Yes Physical Activity Frequency: Does not Exercise Seatbelt Use: never Sunscreen Use: No Assistive Devices: Cane, Walker and Wheelchair Review of Systems Constitutional: no fever and no chills Respiratory: + cough and + dyspnea on exertion Cardiovascular: no chest pain and no palpitations Gastrointestinal: as per Subjective / HPI Physical Exam Constitutional: WD/WN, vitals as above Eyes: EOM intact bilaterally Neck: normal visual inspection Respiratory: no respiratory distress Auscultation: + wheezes Cardiovascular: RRR, no murmur, no edema Gastrointestinal (Abdomen): Inspection/Auscultation: normal bowel sounds Percussion/Palpation: abdomen soft; abdomen nontender Musculoskeletal: Extremities: extremities normal to inspection Skin: warm and dry Psychiatric: A+Ox3, euthymic affect Results & Data ([facility]) Vital Signs (Past 12 Hours) Vital Signs Temp Pulse Pulse Resp BP BP Pulse Ox 09/28/22 08:03 36.8 C 76 18 145/87 H 94 09/28/22 07:24 85 18 97 09/28/22 00:00 67 09/28/22 00:00 36.8 C 66 18 136/70 95 O2 Del Method 09/28/22 08:03 Room Air 09/28/22 07:24 Room Air 09/28/22 00:00 09/28/22 00:00 Room Air Diagnostic Findings Laboratory Results WBC 8.62 K/ul (4.8-10.8) 09/28/22 06:55 RBC 4.40 M/uL (4.63-6.08) L 09/28/22 06:55 Hgb 12.9 g/dl (14.0-18.0) L 09/28/22 06:55 Hct 39.0 % (40.1-51.0) L 09/28/22 06:55 MCV 88.6 fL (80.0-100.0) 09/28/22 06:55 MCH 29.3 pg (25.0-34.0) 09/28/22 06:55 MCHC 33.1 g/dL (32.0-36.0) 09/28/22 06:55 RDW Std Deviation 44.3 fL (36.4-46.3) 09/28/22 06:55 RDW Coeff of Haley 13.8 % (11.5-14.5) 09/28/22 06:55 Plt Count 114 K/uL (130-400) L 09/28/22 06:55 MPV 10.5 fL (9.4-12.4) 09/28/22 06:55 Immature Gran % (Auto) 0.5 % 09/28/22 06:55 Neut % (Auto) 84.1 % 09/28/22 06:55 Lymph % (Auto) 10.4 % 09/28/22 06:55 [place] % (Auto) 5.0 % 09/28/22 06:55 Eos % (Auto) 0.0 % 09/28/22 06:55 Baso % (Auto) 0.0 % 09/28/22 06:55 Neut # (Auto) 7.25 K/uL (1.4-6.5) H 09/28/22 06:55 Lymph # (Auto) 0.90 K/uL (1.2-3.4) L 09/28/22 06:55 [place] # (Auto) 0.43 K/uL (0.24-0.82) 09/28/22 06:55 Eos # (Auto) 0.00 K/uL (0-0.50) 09/28/22 06:55 Baso # (Auto) 0.00 K/uL (0-0.2) 09/28/22 06:55 Immature Gran # (Auto) 0.04 K/uL (0.00-0.02) H 09/28/22 06:55 Toxic Granulation 1+ 09/28/22 06:55 Platelet Estimate Decreased (Normal) L 09/26/22 00:56 Polychromasia 1+ 09/28/22 06:55 PT 11.2 Seconds (9.0-12.0) 09/26/22 00:56 INR 1.1 (0.9-1.1) 09/26/22 00:56 VBG pH 7.44 (7.36-7.41) H 09/26/22 00:56 VBG pCO2 44 mmHg (38-50) 09/26/22 00:56 VBG pO2 59 mmHg 09/26/22 00:56 VBG HCO3 30 mmol/L 09/26/22 00:56 VBG O2 Saturation 90.6 % 09/26/22 00:56 VBG Base Excess 5.0 mEq/L 09/26/22 00:56 Sodium 139 mmol/L (136-145) 09/28/22 06:55 Potassium 4.3 mmol/L (3.5-5.1) 09/28/22 06:55 Chloride 107 mmol/L (98-107) 09/28/22 06:55 Carbon Dioxide 28 mmol/L (21-32) 09/28/22 06:55 Anion Gap 4 (3-11) 09/28/22 06:55 BUN 33 mg/dl (6-23) H 09/28/22 06:55 Creatinine 0.87 mg/dl (0.6-1.4) 09/28/22 06:55 Est Cr Clr Drug Dosing 73.0 ml/min 09/28/22 06:55 Est GFR ( Amer) 92.5 ml/min 09/28/22 06:55 Est GFR (Non-Af Amer) 79.8 ml/min 09/28/22 06:55 BUN/Creatinine Ratio 37.9 (10-20) H 09/28/22 06:55 Glucose 318 mg/dl (70-99(Fasting)) H* 09/28/22 06:55 POC Glucose 298 mg/dl (70-99) H 09/28/22 07:49 Estimat Average Glucose 143 mg/dl 09/26/22 04:08 Hemoglobin A1c 6.6 % (4.5-5.6) H 09/26/22 04:08 Calcium 8.7 mg/dl (8.5-10.1) 09/28/22 06:55 Total Bilirubin 0.4 mg/dl (0.2-1.0) 09/28/22 06:55 AST 20 U/L (13-39) 09/28/22 06:55 ALT 32 U/L (7-52) 09/28/22 06:55 Alkaline Phosphatase 60 U/L (34-104) 09/28/22 06:55 Ammonia 26.0 umol/L (18-72) 09/28/22 06:55 Troponin I High Sens 11.9 pg/ml (0-20) 09/26/22 00:56 B-Natriuretic Peptide 72 pg/ml (0-100) 09/26/22 00:56 Total Protein 6.7 gm/dl (6.0-8.3) 09/28/22 06:55 Albumin 3.8 gm/dl (3.4-5.0) 09/28/22 06:55 Globulin 2.9 gm/dl (2.5-4.0) 09/28/22 06:55 Albumin/Globulin Ratio 1.3 (0.9-2) 09/28/22 06:55 Vitamin B12 331 pg/ml (180-914) 09/28/22 06:55 Procalcitonin < 0.05 ng/ml (0-0.5) 09/26/22 00:58 TSH 0.744 uIu/ml (0.300-4.500) 09/28/22 06:55 Urine Color Yellow 09/26/22 01:35 Urine Appearance Clear (Clear) 09/26/22 01:35 Urine pH 5.0 (4.5-7.5) 09/26/22 01:35 Ur Specific [place] 1.024 (1.000-1.030) 09/26/22 01:35 Urine Protein 2+ (Negative) H 09/26/22 01:35 Urine Glucose (UA) Negative (Negative) 09/26/22 01:35 Urine Ketones Trace (Negative) H 09/26/22 01:35 Urine Blood Negative (Negative) 09/26/22 01:35 Urine Nitrite Negative (Negative) 09/26/22 01:35 Urine Bilirubin Negative (Negative) 09/26/22 01:35 Urine Urobilinogen Negative (Negative) 09/26/22 01:35 Ur Leukocyte Esterase Negative (Negative) 09/26/22 01:35 Urine WBC (Auto) 0 /hpf (0-5) 09/26/22 01:35 Urine RBC (Auto) 0-4 /hpf (0-4) 09/26/22 01:35 U Hyaline Cast (Auto) 1-5 /lpf (0-5) 09/26/22 01:35 U Epithel Cells (Auto) 5-10 /lpf (0-5) H 09/26/22 01:35 Urine Bacteria (Auto) Negative (Negative) 09/26/22 01:35 SARS-CoV-2 (PCR) NEGATIVE (Negative) 09/26/22 00:50 Influenza Type A (PCR) Positive (Neg) A* 09/26/22 00:50 Influenza Type B (PCR) Negative (Neg) 09/26/22 00:50 RSV (RT-PCR) Negative (Neg) 09/26/22 00:50 Impressions Chest X-Ray 09/26/22 00:31 XR chest 1V portable HISTORY: Dyspnea COMPARISON: Chest 05/20/2022. FINDINGS: No pneumothorax. The cardiac silhouette remains mildly enlarged. There are low lung volumes. Left basilar linear densities are noted. No pleural effusions. There is mild central pulmonary vascular congestion without overt edema. Advanced degenerative changes again noted within the shoulders. IMPRESSION: 1. Cardiomegaly with mild central pulmonary vascular congestion without overt edema. 2. Left basilar linear densities may represent subsegmental atelectasis or a developing pneumonia. ACT 112: Negative or not required by law. Electronically signed by: Casa Vieira M.D. 09/26/2022 8:[address] 09/26/22 16:13 CT SCAN OF THE BRAIN WITHOUT IV CONTRAST CLINICAL HISTORY: Difficult with word finding. Aspiration. COMPARISON STUDY: CT of the brain dated 05/21/2022. TECHNIQUE: Unenhanced axial CT scan of the brain is performed from the vertex to the skull base. A dose lowering technique was utilized adhering to the principles of ALARA. CT DOSE: 884.08 mGy.cm FINDINGS: Brain parenchyma: There is age-related involutional change noting mild to moderate subcortical and periventricular microangiopathic disease. There is no hemorrhage, mass effect, or evidence of acute territorial ischemia by CT criteria. Duran-white matter differentiation is preserved. No extra-axial fluid collection is seen. Ventricles, sulci, cisterns: Prominent secondary to involutional change. Intracranial vasculature: There is atherosclerotic calcification of the cavernous carotid arteries. Calvarium: Unremarkable. Sinuses and mastoids: There is mild mucosal thickening within the maxillary antra. An air-fluid level seen on the left. The remaining paranasal sinuses are clear. The mastoid air cells are well pneumatized. Orbits: The bony orbits are grossly intact. There are bilateral ocular lens implants. The has been bilateral ocular globe banding. IMPRESSION: There is no hemorrhage, mass effect, or evidence of acute territorial ischemia by CT criteria. ACT 112: Negative or not required by law. Electronically signed by: Ananda Sweeney M.D. 09/26/2022 4:53 PM PG Care Time/CCT Total # of Minutes Spent Total Time Spent with Patient: Total time spent is greater than 50% in coordination of care (as documented) at patient's floor/unit and/or counseling patient: Coding Level of Care Code 49474 Initial Inpt Care Lvl 3 Diagnoses Asthma exacerbation J45.901 Influenza A J10.1 Dysphagia R13.10 GERD (gastroesophageal reflux disease) K21.9 Esophagitis presence: without esophagitis (1) GERD (gastroesophageal reflux disease) Esophagitis presence: without esophagitis Qualified Code(s): K21.9 - Gastro- esophageal reflux disease without esophagitis
[2022-09-28] MEDS: LORazepam 0.5 MG TAB PO PRN ×2 (11:51→22:06)
--- NOTE | 2022-09-28 13:06 | Anesthesiology Consultation ---
Date of Service September 28, 2022 Assessment & Plan (1) Encounter for pre-operative examination: Chart Review Chart Review: Acceptable Risk for Surgery, Patient NOT seen in Pre Admission Testing and entry level mechanical engineer initiated Consults Requested none History Surgery Operation Date: 09/28/22 16:40 Proposed Procedures p Esophagogastroduodenoscopy Dr Stanton - Nain Mi Case, DO Height/Weight Height: 5 ft 2 in Weight: 91 kg Allergies Allergy/AdvReac Type Severity Reaction Status Date / Time ibuprofen Allergy Mild ULCERS IN Verified 09/26/22 00:40 MOUTH Medications Home Medications Medication Instructions Recorded Confirmed Last Taken cholecalciferol (vitamin D3) 25 25 mcg PO QAM 03/04/20 09/26/22 06/14/20 mcg (1,000 unit) capsule (Vitamin D3) acetaminophen 500 mg capsule 500 mg PO Q6H PRN Pain 06/17/20 09/26/22 Unknown furosemide 40 mg tablet (Lasix) 40 mg PO DAILY #90 tabs 12/22/21 09/26/22 Unknown montelukast 10 mg tablet 10 mg PO HS #90 tabs 01/16/22 09/26/22 Unknown (Singulair) blood sugar diagnostic #100 ea 01/24/22 08/03/22 Unknown blood-glucose meter (OneTouch #1 ea 01/24/22 08/03/22 Unknown UltraMini kit) metformin 500 mg tablet,extended 500 mg PO BID #180 tabs 02/28/22 09/26/22 Unknown release 24 hr tramadol 50 mg tablet 50 mg PO BID PRN pain #60 tabs 03/22/22 09/26/22 Unknown haloperidol 1 mg tablet 1 mg PO HS PRN Insomnia 05/21/22 09/26/22 Unknown hyoscyamine sulfate 0.125 mg tablet 0.125 mg PO HS PRN Gi Upset 05/21/22 09/26/22 Unknown lorazepam 0.5 mg tablet 0.5 mg PO HS PRN Anxiety 05/21/22 09/26/22 Unknown budesonide 0.5 mg/2 mL suspension 0.5 mg (2 mL) inhalation BID #120 06/05/22 09/26/22 Unknown for nebulization mL ipratropium 0.5 mg-albuterol 3 mg 3 ml inhalation Q4H PRN 06/05/22 09/26/22 Unknown (2.5 mg base)/3 mL nebulization sob/wheezing #180 mL soln tiotropium bromide 18 mcg capsule 1 cap inhalation DAILY #60 06/05/22 09/26/22 Unknown with inhalation device (Spiriva inhalations with HandiHaler) atorvastatin 10 mg tablet 10 mg PO QPM #90 tabs 06/13/22 09/26/22 Unknown metoprolol tartrate 50 mg tablet 25 mg PO BID #90 tabs 06/13/22 09/26/22 Unknown glyburide 2.5 mg tablet 2.5 mg PO BID #180 tabs 07/13/22 09/26/22 Unknown isosorbide mononitrate 60 mg 60 mg PO QAM #90 tabs 07/13/22 09/26/22 Unknown tablet,extended release 24 hr quetiapine 25 mg tablet (Seroquel) 25 mg PO BID #90 tabs 07/28/22 09/26/22 Unknown clotrimazole 1 % topical solution See Rx Instructions topical BID 08/11/22 09/26/22 Unknown #30 mL celecoxib 100 mg capsule 100 mg PO DAILY #90 caps 08/28/22 09/26/22 Unknown Active Medications Generic Name Dose Route Start Last Admin Trade Name Freq PRN Reason Stop Dose Admin Albuterol 3 ml 09/28/22 07:00 09/28/22 11:23 Albut/Ipratrop 3mg/0.5mg Neb 3 Ml Vial NEB 10/28/22 06:59 3 ml QIDR SAM Administration Protocol Atorvastatin Calcium 10 mg 09/26/22 21:00 09/27/22 20:33 Atorvastatin 10 Mg Tab PO 10/26/22 20:59 10 mg QPM SAM Administration Budesonide 0.5 mg 09/26/22 07:00 09/28/22 07:21 Budesonide 0.5 Mg/2 Ml Vial (Pulmicort) INH 10/26/22 06:59 0.5 mg BIDR SAM Administration Enoxaparin Sodium 40 mg 09/28/22 09:00 09/28/22 08:45 Enoxaparin Inj 40 Mg/0.4 Ml Syr SQ 10/28/22 08:59 40 mg QAM SAM Administration Furosemide 40 mg 09/26/22 09:00 09/28/22 08:46 Furosemide 40 Mg Tab PO 10/26/22 08:59 40 mg DAILY SAM Administration Haloperidol 1 mg 09/26/22 03:32 09/27/22 23:38 Haloperidol 1 Mg Tab PO 10/26/22 03:31 1 mg HS PRN Administration Insomnia Methylprednisolone 40 mg/ 0.64 mls @ 1.5 mls/min 09/27/22 10:00 09/28/22 09:30 Syringe IV 10/27/22 08:59 1.5 mls/min BID SAM Administration Insulin Aspart 0 units 09/26/22 07:30 09/28/22 12:45 Insulin Aspart Per Unit SC 10/26/22 07:29 3 units ACHS SAM Administration Isosorbide Mononitrate 60 mg 09/26/22 09:00 09/28/22 08:45 Isosorbide [place] Extended Rel 60 Mg Tabcr PO 10/26/22 08:59 60 mg QAM SAM Administration Lorazepam 0.5 mg 09/26/22 03:32 09/28/22 11:51 Lorazepam 0.5 Mg Tab PO 10/26/22 03:31 0.5 mg HS PRN Administration Anxiety Metoprolol Tartrate 25 mg 09/26/22 09:00 09/28/22 08:46 Metoprolol Tartrate 25 Mg Tab PO 10/26/22 08:59 25 mg BID SAM Administration Montelukast Sodium 10 mg 09/26/22 21:00 09/27/22 20:35 Montelukast Sodium 10 Mg Tablet PO 10/26/22 20:59 10 mg HS SAM Administration Oseltamivir Phosphate 75 mg 09/26/22 09:00 09/28/22 08:46 Oseltamivir Phosphate 75 Mg Cap PO 10/01/22 08:59 75 mg BID SAM Administration Protocol Pantoprazole Sodium 40 mg 09/27/22 09:00 09/28/22 08:45 Pantoprazole 40 Mg Tab PO 10/27/22 08:59 40 mg DAILY SAM Administration Quetiapine Fumarate 25 mg 09/26/22 09:00 09/28/22 08:46 Quetiapine Fumarate 25 Mg Tablet PO 10/26/22 08:59 25 mg BID SAM Administration Umeclidinium [place] 1 puffs 09/26/22 09:00 09/28/22 08:46 Umeclidinium [place] 62.5mcg/Blister 7 Puffs/Inhaler INH 10/26/22 08:59 1 puffs DAILY SAM Administration Past Medical History Medical History (Updated 09/28/22 @ 13:09 by Emigdio Hill MD) Advanced COPD Anemia Anxiety CAD (coronary artery disease) (10/04/13) Colonoscopy planned 06/13/[address] Stanton Dementia, vascular Diabetes mellitus Diverticulitis Diverticulosis Encounter for pre-operative examination Fall Fracture, ribs Generalized osteoarthritis GERD (gastroesophageal reflux disease) Heart failure with preserved ejection fraction History of asthma Hyperlipidemia Hypertension Inguinal hernia b/l? Injury of hip, right Leg edema Moderate persistent asthma Monoclonal B-cell lymphocytosis Obstructive sleep apnea moderate [03/2017] Periodic limb movement disorder Pulmonary emboli 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 hearing loss (SNHL) of both ears Splenomegaly (12/19/12) Past Family History Family History Family/Other Myocardial infarction Stroke Sister Diabetes Mother Cardiac disorder Myocardial infarction Grandmother Cardiac disorder Hypertension Grandfather Cardiac disorder Hypertension Denies family history of Esophageal cancer Ovarian cancer Prostate cancer Crohn's disease Breast cancer Colorectal cancer Past Surgical History Surgical History History of bilateral hip replacements History of prostatectomy History of tonsillectomy S/P colonoscopy S/P hernia repair S/P vasectomy Social History Smoking Status: Unknown if ever smoked Hx Alcohol Use: Yes Alcohol type: beer alcohol intake frequency: a few times a week Hx Substance Use: No Physical Exam Vital Signs Last Vital Signs Temp 36.9 C 09/28/22 11:27 Pulse 64 09/28/22 11:27 Resp 18 09/28/22 11:27 BP 137/78 09/28/22 11:27 Pulse Ox 95 09/28/22 11:27 O2 Del Method 09/28/22 11:27 O2 Flow Rate 3 09/26/22 10:01 Testing Laboratory Results 09/28/22 06:55 09/28/22 06:55 PT 11.2 Seconds (9.0-12.0) 09/26/22 00:56 INR 1.1 (0.9-1.1) 09/26/22 00:56 Hemoglobin A1c 6.6 % (4.5-5.6) H 09/26/22 04:08 Urine Color Yellow 09/26/22 01:35 Urine Appearance Clear (Clear) 09/26/22 01:35 Urine pH 5.0 (4.5-7.5) 09/26/22 01:35 Ur Specific [place] 1.024 (1.000-1.030) 09/26/22 01:35 Urine Protein 2+ (Negative) H 09/26/22 01:35 Urine Glucose (UA) Negative (Negative) 09/26/22 01:35 Urine Ketones Trace (Negative) H 09/26/22 01:35 Urine Nitrite Negative (Negative) 09/26/22 01:35 Ur Leukocyte Esterase Negative (Negative) 09/26/22 01:35 Urine WBC (Auto) 0 /hpf (0-5) 09/26/22 01:35 Urine RBC (Auto) 0-4 /hpf (0-4) 09/26/22 01:35 U Hyaline Cast (Auto) 1-5 /lpf (0-5) 09/26/22 01:35 U Epithel Cells (Auto) 5-10 /lpf (0-5) H 09/26/22 01:35 Urine Bacteria (Auto) Negative (Negative) 09/26/22 01:35 09/26/22 04:04 Aerobic Blood Culture - Preliminary Blood No growth in Aerobic bottle after 48 hours. Anaerobic Blood Culture - Preliminary No growth in Anaerobic bottle after 48 hours. 09/26/22 04:04 Aerobic Blood Culture - Preliminary Blood No growth in Aerobic bottle after 48 hours. Anaerobic Blood Culture - Preliminary No growth in Anaerobic bottle after 48 hours. 09/28/22 09/28/22 11:42 07:49 POC Glucose 187 H 298 H Electrocardiogram Date: 09/26/22 Test Reason : Blood Pressure : / mmHG Vent. Rate : 111 BPM Atrial Rate : 111 BPM P-R Int : 160 ms QRS Dur : 080 ms QT Int : 328 ms P-R-T Axes : 010 -41 028 degrees QTc Int : 446 ms Sinus tachycardia with Premature supraventricular complexes Left axis deviation Possible Anterior infarct , age undetermined Abnormal ECG When compared with ECG of 20-MAY-2022 23:33, Premature supraventricular complexes are now Present Confirmed by Steve Garcia ([id number]) on 09/28/2022 5:31:48 AM Chest X-Ray Date: 09/26/22 XR chest 1V portable HISTORY: Dyspnea COMPARISON: Chest 05/20/2022. FINDINGS: No pneumothorax. The cardiac silhouette remains mildly enlarged. There are low lung volumes. Left basilar linear densities are noted. No pleural effusions. There is mild central pulmonary vascular congestion without overt edema. Advanced degenerative changes again noted within the shoulders. IMPRESSION: 1. Cardiomegaly with mild central pulmonary vascular congestion without overt edema. 2. Left basilar linear densities may represent subsegmental atelectasis or a developing pneumonia.
--- NOTE | 2022-09-28 13:47 | Magnetic Resonance Report ---
Brain MRI WITHOUT CONTRAST HISTORY: dilated right pupil, altered mental state ?CVA TECHNIQUE: Multiplanar multisequence MRI of the brain was performed without the use of contrast. COMPARISON STUDY: Head CT 09/26/2022. Brain MRI 09/28/2017. FINDINGS: There is no mass, hematoma, midline shift, or acute infarct. Mild mucosal thickening within the maxillary sinuses. Evidence for prior bilateral lens replacement. The mastoid air cells are vesta r. The ventricles and sulci demonstrate moderate age-related involutional changes. Scattered foci of T2 hyperintensity seen within the periventricular and subcortical white matter are nonspecific but escoto ggestive of mild microvascular ischemic changes. There is loss of the normal flow-void within the dis naga left vertebral artery. This is best seen on axial T2 image 3. IMPRESSION: 1. No acute infarct or intracranial hemorrhage. 2. Atrophy and microvascular ischemic changes again noted. 3. Loss of the normal flow-void within the distal left vertebral artery consistent with vertebral art fide occlusion. This is age indeterminate but likely chronic given the lack of an acute infarct at the posterior fossa. ACT 112: Negative or not required by law. Electronically signed by: Casa Vieira M.D. 09/28/2022 1:45 PM
--- NOTE | 2022-09-28 14:18 | Pharmacy Report ---
Pharmacy Glycemic Short Note 2 - Date of Service September 28, 2022 - Glycemic Short BSG Results (Last 24 hours): 09/27/22 09/27/22 09/28/22 16:44 20:04 06:55 Glucose 318 H* POC Glucose 154 H 201 H 09/28/22 09/28/22 07:49 11:42 Glucose POC Glucose 298 H 187 H OUTPATIENT ANTIDIABETIC REGIMEN: * Metformin, Glyburide * A1c 6.6% 09/26/22 ASSESSMENT: 09/28/22 * Patient's BSGs yesterday were [phone] mg/dL. Fasting this morning was 298 mg/dL. * Patient received 55 units of insulin yesterday (15 units of basal and 40 units of bolus). This is a 66% increase from 09/26/22. * Patient continues on Solu-Medrol 40 mg IV q12. Patient did receive 3 doses yesterday. * Increase basal to 20 units (provide 15 units this morning and 5 units tonight). Overnight checks to prevent AM BSG elevation. * Tighten CR but loosen CF to prevent overcorrection. 09/27/22 * Patient's BSGs yesterday were [phone] mg/dL. Patient received 33 units of insulin (10 of basal and 23 units of bolus). * Fasting today is 270 mg/dL. * Patient historically has low basal requirements. Give 10 units of Lantus in AM then 5 units HS (represents 50% increase). * Tighten Novolog substantially as BSGs not controlled yesterday. Background * Patient admitted with influenza A, received a dose of 125 mg solu-medrol IV x 1, continuing 40 mg IV q12 * BSG elevated this morning, conservative lantus started and weight based novolog stress of 2 * Will monitor for need to tighten parameters secondary to steroid use. PLAN FOR INPATIENT GLYCEMIC CONTROL: * Hold outpatient oral diabetes medications * Basal insulin * Lantus 15 units SQ in AM then 5 units in the evening - reassess tomorrow * Bolus insulin * NovoLog per scale ACHS or Q6hrs while NPO * Goal Range: Low 110 mg/dL - High 140 mg/dL * Correction Factor: 18 mg/dL/unit * Nutritional / Prandial insulin per carb ratio of 1 unit per 3 grams CHO consumed
--- NOTE | 2022-09-28 16:04 | Hospitalist Progress Note ---
Date of Service September 28, 2022 Assessment & Plan (1) Hypoxia: Plan: Secondary acute Asthma Exacerbation, Influenza A. Now resolved. He is on room air (2) Influenza A: Plan: Tamiflu 75 mg p.o. twice daily for 5 days (3) Asthma exacerbation: Plan: Continue solu-medrol 40mg IV BID. Duonebs QID. Much improved since admission (4) Esophageal dysphagia: Plan: Chronic. Seen by speech and language and recommended GI consult prior to any video swallow due to known esophageal dysphagia. He is to have an EGD later today, September 28, but he seems to be unaware of this and may refuse the procedure. 2012 barium swallow study found showing history of esophageal ring and dysmotility for at least the last 10 years. 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 CT head with no pathology. 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 No acute CVA. (6) Moderate persistent asthma: Plan: Continue Incruse Ellipta and Singulair. Continue budesonide nebulizer twice daily. Much improved (7) Obstructive sleep apnea: Plan: CPAP HS. stable (8) CAD (coronary artery disease): Plan: Stable on current medications including metoprolol, isosorbide, Lasix , atorvastatin. No evidence of acute coronary syndrome. (9) Dementia, vascular: Plan: Stable. Continue current medical management. (10) Diabetes mellitus: Plan: Hemoglobin A1c 6.6%. Diabetic diet. Continue Lantus therapy. Sliding scale coverage as needed (11) Obesity (BMI 30-39.9): Plan: Weight loss recommended (12) Hypertension: Plan: Stable on metoprolol tartrate , furosemide , isosorbide mononitrate (13) GERD (gastroesophageal reflux disease): Plan: Continue pantoprazole 40 mg p.o. twice daily Plan DVT prophylaxis: Lovenox 40mg SQ QAM CODE STATUS: Full code Disposition: Anticipate eventual discharge to home. Possibly tomorrow, September 29 Admission and Anticipated Discharge Date Admission Date: September 26, 2022 Subjective Alert and oriented. No acute distress. He seems unaware that he is going to get an EGD later today. He may refuse the procedure. Video swallow scheduled for tomorrow. Brain MRI scan reveals atrophy and occlusion of the left vertebral artery. He currently is receiving Tamiflu for the influenza A. He is on room air. Review of Systems Review of Systems: Constitutional-no fever or chills ENT-no blurred vision, no double vision, no epistaxis, no sore throat Respiratory-no cough, no shortness of breath. Occasional wheezing Cardiac-no palpitations, no chest pain, no syncope GI-no nausea, vomiting, diarrhea, melena, hematochezia -no urinary retention, no urinary incontinence, no dysuria, no hematuria Musculoskeletal-no joint pain, no muscle tenderness Skin-no bruising, no rashes, no pruritus Neuro-no isolated weakness, no paresthesia, no weakness Psych-no depression, no anxiety Physical Exam Physical Exam: General-alert and oriented x3, no fevers, no chills HEENT-head atraumatic and normocephalic, pupils equal and reactive to light, extraocular muscles intact Neck-no lymphadenopathy or thyromegaly, trachea midline Chest-clear to auscultation percussion. No rales, wheezing or rhonchi Cardiac-regular rate and rhythm, normal S1 and S2 Abdomen-normal bowel sounds, nontender, no hepatosplenomegaly Extremities-no cyanosis, clubbing, or edema Neuro-cranial nerves II through XII intact, motor and sensory function within normal limits, strength symmetrical , no focal deficits Psych-normal affect, normal mood Results & Data Results & Data ([facility]) Vital Signs (Past 12 Hours) Vital Signs Temp Pulse Pulse Resp BP Pulse Ox O2 Del Method 09/28/22 15:35 77 18 94 Room Air 09/28/22 11:27 36.9 C 64 18 137/78 95 Room Air 09/28/22 11:23 70 18 95 Room Air 09/28/22 10:25 62 09/28/22 08:03 36.8 C 76 18 145/87 H 94 Room Air 09/28/22 07:24 85 18 97 Room Air Laboratory Results 09/28/22 06:55 09/28/22 06:55 PG Care Time/CCT Total # of Minutes Spent Total Time Spent with Patient: Total time spent is greater than 50% in coordination of care (as documented) at patient's floor/unit and/or counseling patient: Coding Level of Care Code 88222 Subseq Hosp Care Lvl 3 Diagnoses Hypoxia R09.02 Influenza A J10.1 Asthma exacerbation J45.901 Esophageal dysphagia R13.19 Unequal pupil diameter H57.02 Moderate persistent asthma J45.40 Asthma complication type: uncomplicated Obstructive sleep apnea G47.33 CAD (coronary artery disease) I25.118 Coronary Disease-Associated Artery/Lesion type: [place] artery [place] vs. transplanted heart: [place] heart Associated angina: with stable angina Dementia, vascular F01.50 Dementia behavioral disturbance: without behavioral disturbance Diabetes mellitus E11.9 Diabetes mellitus type: type 2 Diabetes mellitus buttermaker insulin use: without buttermaker use Diabetes mellitus complication status: without complication Obesity (BMI 30-39.9) E66.9 Hypertension I10 Hypertension type: essential hypertension GERD (gastroesophageal reflux disease) K21.9 Esophagitis presence: without esophagitis (1) Moderate persistent asthma Asthma complication type: uncomplicated Qualified Code(s): J45.40 - Moderate persistent asthma, uncomplicated (2) CAD (coronary artery disease) Coronary Disease-Associated Artery/Lesion type: [place] artery [place] vs. transplanted heart: [place] heart Associated angina: with stable angina Qualified Code(s): I25.118 - Atherosclerotic heart disease of [place] coronary artery with other forms of angina pectoris (3) Dementia, vascular Dementia behavioral disturbance: without behavioral disturbance Qualified Code(s): F01.50 - Vascular dementia without behavioral disturbance (4) Diabetes mellitus Diabetes mellitus type: type 2 Diabetes mellitus halfway insulin use: without halfway use Diabetes mellitus complication status: without complica tion Qualified Code(s): E11.9 - Type 2 diabetes mellitus without complications (5) Hypertension Hypertension type: essential hypertension Qualified Code(s): I10 - Essential (primary) hypertension (6) GERD (gastroesophageal reflux disease) Esophagitis presence: without esophagitis Qualified Code(s): K21.9 - Gastro- esophageal reflux disease without esophagitis
[2022-09-28] MEDS: haloperidoL 1 MG TAB PO PRN (22:09)
[2022-09-28] MEDS: ATORVASTATIN 10 MG TAB PO SCH (22:10)
[2022-09-28] MEDS: MONTELUKAST SODIUM 10 MG TABLET PO SCH (22:10)
[2022-09-29] MEDS ORDERED: HALOPERIDOL LACTATE 5 MG/ML 1 ML VIAL IV STA (00:32)
[2022-09-29] MEDS: INSULIN ASPART PER UNIT SC SCH ×6 (00:36→21:12)
[2022-09-29] MEDS ORDERED: HALOPERIDOL LACTATE 5 MG/ML 1 ML VIAL IM STA ×2 (00:52→10:19)
[2022-09-29] MEDS: ALBUT/IPRATROP 3MG/0.5MG NEB 3 ML VIAL NEB SCH ×4 (07:20→19:53)
[2022-09-29] MEDS: BUDESONIDE 0.5 MG/2 ML VIAL (PULMICORT) INH SCH ×2 (07:20→19:53)
[2022-09-29] MEDS: ENOXAPARIN INJ 40 MG/0.4 ML SYR SQ SCH (08:08)
[2022-09-29] MEDS: methylPREDNISolone 40 MG in SYRINGE 0 ML IV SCH ×2 (08:09→21:07)
[2022-09-29] MEDS: QUEtiapine FUMARATE 25 MG TABLET PO SCH ×2 (08:09→21:07)
[2022-09-29] MEDS: METOPROLOL TARTRATE 25 MG TAB PO SCH ×2 (08:09→21:08)
[2022-09-29] MEDS: ISOSORBIDE MONO EXTENDED REL 60 MG TABCR PO SCH (08:10)
[2022-09-29] MEDS: OSELTAMIVIR PHOSPHATE 75 MG CAP PO SCH ×2 (08:10→21:07)
[2022-09-29] MEDS: PANTOprazole 40 MG TAB PO SCH (08:10)
[2022-09-29] MEDS: FUROSEMIDE 40 MG TAB PO SCH (08:10)
[2022-09-29] MEDS: UMECLIDINIUM BROMIDE 62.5MCG/BLISTER 7 PUFFS/INHALER INH SCH (08:10)
[2022-09-29] MEDS ORDERED: LANTUS PER UNIT CHARGE SQ SCH (09:00)
[2022-09-29 10:06] LABS: Basophils # (auto) 0.01 K/uL (0-0.2); Basophils % (auto) 0.1 %; Hematocrit (blood only) 41.4 % (40.1-51.0); Hemoglobin 14.2 g/dl (14.0-18.0); Immature Granulocytes # (auto) 0.05 K/uL (0.00-0.02); Immature Granulocytes % (auto) 0.5 %; Lymphocytes # (auto) 0.77 K/uL (1.2-3.4); Mean Corpuscular Hemoglobin 29.4 pg (25.0-34.0); Mean Corpuscular Hgb Conc 34.3 g/dL (32.0-36.0); Mean Corpuscular Volume 85.7 fL (80.0-100.0); Mean Platelet Volume 10.1 fL (9.4-12.4); Monocytes # (auto) 0.37 K/uL (0.24-0.82); Monocytes % (auto) 3.8 %; Neutrophils # (auto) 8.43 K/uL (1.4-6.5); Neutrophils % (auto) 87.6 %; Platelet Count 152 K/uL (130-400); RDW Coefficient of Variation 13.6 % (11.5-14.5); RDW Standard Deviation 42.4 fL (36.4-46.3); Red Blood Count 4.83 M/uL (4.63-6.08); White Blood Count 9.63 K/ul (4.8-10.8)
[2022-09-29] MEDS ORDERED: HALOPERIDOL LACTATE 5 MG/ML 1 ML VIAL IM PRN (10:19)
[2022-09-29 10:24] LABS: BUN Creatinine Ratio 30.6 (10-20); Calcium 8.7 mg/dl (8.5-10.1); Creatinine Clr Calc Pharmacy 100.2 ml/min; Est GFR (African American) 93.4 ml/min; Est GFR (Non-African American) 80.6 ml/min
--- NOTE | 2022-09-29 13:03 | Pharmacy Report ---
Pharmacy Glycemic Short Note 2 - Date of Service September 29, 2022 - Glycemic Short BSG Results (Last 24 hours): 09/28/22 09/28/22 09/29/22 16:45 20:33 00:31 Glucose POC Glucose 174 H 192 H 118 H 09/29/22 09/29/22 09/29/22 07:36 09:31 11:41 Glucose 237 H POC Glucose 155 H 161 H OUTPATIENT ANTIDIABETIC REGIMEN: * Metformin, Glyburide * A1c 6.6% 09/26/22 ASSESSMENT: 09/29/22 * Patient's BSGs yesterday were [phone] and midnight was 118 mg/dL. Patient received 54 units of insulin (20 units of basal and 34 units of bolus). * Patient continues on Solu-Medrol 40 mg IV BID. * Fasting today is 155 mg/dL. Lantus 15 units x 1. Will not give evening dose of Lantus as fasting trending down. Re-evaluate tomorrow. * Continue Novolog as BSGs trend down throughout the day. 09/28/22 * Patient's BSGs yesterday were [phone] mg/dL. Fasting this morning was 298 mg/dL. * Patient received 55 units of insulin yesterday (15 units of basal and 40 units of bolus). This is a 66% increase from 09/26/22. * Patient continues on Solu-Medrol 40 mg IV q12. Patient did receive 3 doses yesterday. * Increase basal to 20 units (provide 15 units this morning and 5 units tonight). Overnight checks to prevent AM BSG elevation. * Tighten CR but loosen CF to prevent overcorrection. 09/27/22 * Patient's BSGs yesterday were [phone] mg/dL. Patient received 33 units of insulin (10 of basal and 23 units of bolus). * Fasting today is 270 mg/dL. * Patient historically has low basal requirements. Give 10 units of Lantus in AM then 5 units HS (represents 50% increase). * Tighten Novolog substantially as BSGs not controlled yesterday. Background * Patient admitted with influenza A, received a dose of 125 mg solu-medrol IV x 1, continuing 40 mg IV q12 * BSG elevated this morning, conservative lantus started and weight based novolog stress of 2 * Will monitor for need to tighten parameters secondary to steroid use. PLAN FOR INPATIENT GLYCEMIC CONTROL: * Hold outpatient oral diabetes medications * Basal insulin * Lantus 15 units SQ in AM reassess tomorrow * Bolus insulin * NovoLog per scale ACHS or Q6hrs while NPO * Goal Range: Low 110 mg/dL - High 140 mg/dL * Correction Factor: 18 mg/dL/unit * Nutritional / Prandial insulin per carb ratio of 1 unit per 3 grams CHO consumed
--- NOTE | 2022-09-29 14:06 | Hospitalist Progress Note ---
Date of Service September 29, 2022 Assessment & Plan (1) Hypoxia: Plan: Secondary acute Asthma Exacerbation, Influenza A. Now resolved. He is on room air (2) Influenza A: Plan: Tamiflu 75 mg p.o. twice daily for 5 days (3) Asthma exacerbation: Plan: Continue solu-medrol 40mg IV BID. Duonebs QID. Much improved since admission (4) Esophageal dysphagia: Plan: Chronic. Seen by speech and language and recommended GI consult prior to any video swallow due to known esophageal dysphagia. He is to have an EGD later today, September 28, but he seems to be unaware of this and may refuse the procedure. 2012 barium swallow study found showing history of esophageal ring and dysmotility for at least the last 10 years. 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 CT head with no pathology. 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 No acute CVA. (6) Moderate persistent asthma: Plan: Continue Incruse Ellipta and Singulair. Continue budesonide nebulizer twice daily. Much improved (7) Obstructive sleep apnea: Plan: CPAP HS. stable (8) CAD (coronary artery disease): Plan: Stable on current medications including metoprolol, isosorbide, Lasix , atorvastatin. No evidence of acute coronary syndrome. (9) Dementia, vascular: Plan: Stable. Continue current medical management. (10) Diabetes mellitus: Plan: Hemoglobin A1c 6.6%. Diabetic diet. Continue Lantus therapy. Sliding scale coverage as needed (11) Obesity (BMI 30-39.9): Plan: Weight loss recommended (12) Hypertension: Plan: Stable on metoprolol tartrate , furosemide , isosorbide mononitrate (13) GERD (gastroesophageal reflux disease): Plan: Continue pantoprazole 40 mg p.o. twice daily (14) Agitation: Plan: Seroquel dosage uptitrated today, September 29. Use IM Haldol as needed. Plan DVT prophylaxis: Lovenox 40mg SQ QAM CODE STATUS: Full code Disposition: Anticipate eventual discharge to home. Possibly tomorrowSeptember 30 Admission and Anticipated Discharge Date Admission Date: September 26, 2022 Subjective Agitated behavior recurred this morning and responded to intramuscular Haldol. Seroquel dosage has been increased. Case discussed with case management. Brain MRI scan revealed age-related atrophy and chronically occluded left vertebral artery. No acute changes. He remains on Tamiflu for the influenza A. He is now on room air. Review of Systems Review of Systems: Constitutional-no fever or chills ENT-no blurred vision, no double vision, no epistaxis, no sore throat Respiratory-no cough, no shortness of breath. Occasional wheezing Cardiac-no palpitations, no chest pain, no syncope GI-no nausea, vomiting, diarrhea, melena, hematochezia -no urinary retention, no urinary incontinence, no dysuria, no hematuria Musculoskeletal-no joint pain, no muscle tenderness Skin-no bruising, no rashes, no pruritus Neuro-no isolated weakness, no paresthesia, no weakness Psych-no depression, no anxiety Physical Exam Physical Exam: General-alert and oriented x3, no fevers, no chills HEENT-head atraumatic and normocephalic, pupils equal and reactive to light, extraocular muscles intact Neck-no lymphadenopathy or thyromegaly, trachea midline Chest-clear to auscultation percussion. No rales, wheezing or rhonchi Cardiac-regular rate and rhythm, normal S1 and S2 Abdomen-normal bowel sounds, nontender, no hepatosplenomegaly Extremities-no cyanosis, clubbing, or edema Neuro-cranial nerves II through XII intact, motor and sensory function within normal limits, strength symmetrical , no focal deficits Psych-normal affect, normal mood Results & Data Results & Data ([facility]) Vital Signs (Past 12 Hours) Vital Signs Temp Pulse Resp BP Pulse Ox O2 Del Method 09/29/22 11:17 36.7 C 91 H 20 196/84 H 93 Room Air 09/29/22 10:24 84 18 93 Room Air 09/29/22 09:30 96 H 20 94 Room Air 09/29/22 08:15 37.0 C 101 H 18 182/111 H 93 Room Air 09/29/22 02:23 36.7 C 70 18 179/74 H 93 Room Air PG Care Time/CCT Total # of Minutes Spent Total Time Spent with Patient: Total time spent is greater than 50% in coordination of care (as documented) at patient's floor/unit and/or counseling patient: Coding Level of Care Code 59367 Subseq Hosp Care Lvl 3 Diagnoses Hypoxia R09.02 Influenza A J10.1 Asthma exacerbation J45.901 Esophageal dysphagia R13.19 Unequal pupil diameter H57.02 Moderate persistent asthma J45.40 Asthma complication type: uncomplicated Obstructive sleep apnea G47.33 CAD (coronary artery disease) I25.118 Coronary Disease-Associated Artery/Lesion type: [place] artery [place] vs. transplanted heart: [place] heart Associated angina: with stable angina Dementia, vascular F01.50 Dementia behavioral disturbance: without behavioral disturbance Diabetes mellitus E11.9 Diabetes mellitus type: type 2 Diabetes mellitus terminal makeup operator insulin use: without terminal makeup operator use Diabetes mellitus complication status: without complication Obesity (BMI 30-39.9) E66.9 Hypertension I10 Hypertension type: essential hypertension GERD (gastroesophageal reflux disease) K21.9 Esophagitis presence: without esophagitis Agitation R45.1 (1) Moderate persistent asthma Asthma complication type: uncomplicated Qualified Code(s): J45.40 - Moderate persistent asthma, uncomplicated (2) CAD (coronary artery disease) Coronary Disease-Associated Artery/Lesion type: [place] artery [place] vs. transplanted heart: [place] heart Associated angina: with stable angina Qualified Code(s): I25.118 - Atherosclerotic heart disease of [place] coronary artery with other forms of angina pectoris (3) Dementia, vascular Dementia behavioral disturbance: without behavioral disturbance Qualified Code(s): F01.50 - Vascular dementia without behavioral disturbance (4) Diabetes mellitus Diabetes mellitus type: type 2 Diabetes mellitus detention insulin use: without detention use Diabetes mellitus complication status: without complication Qualified Code(s): E11.9 - Type 2 diabetes mellitus without complications (5) Hypertension Hypertension type: essential hypertension Qualified Code(s): I10 - Essential (primary) hypertension (6) GERD (gastroesophageal reflux disease) Esophagitis presence: without esophagitis Qualified Code(s): K21.9 - Gastro- esophageal reflux disease without esophagitis
[2022-09-29] MEDS: MONTELUKAST SODIUM 10 MG TABLET PO SCH (21:08)
[2022-09-29] MEDS: ATORVASTATIN 10 MG TAB PO SCH (21:08)
[2022-09-29] MEDS: haloperidoL 1 MG TAB PO PRN (21:09)
[2022-09-30] MEDS: ALBUT/IPRATROP 3MG/0.5MG NEB 3 ML VIAL NEB SCH ×3 (07:37→15:15)
[2022-09-30] MEDS: BUDESONIDE 0.5 MG/2 ML VIAL (PULMICORT) INH SCH (07:37)
[2022-09-30] MEDS: INSULIN ASPART PER UNIT SC SCH ×2 (08:29→12:23)
[2022-09-30] MEDS: methylPREDNISolone 40 MG in SYRINGE 0 ML IV SCH (08:30)
[2022-09-30] MEDS: FUROSEMIDE 40 MG TAB PO SCH (08:30)
[2022-09-30] MEDS: METOPROLOL TARTRATE 25 MG TAB PO SCH (08:30)
[2022-09-30] MEDS: PANTOprazole 40 MG TAB PO SCH (08:30)
[2022-09-30] MEDS: QUEtiapine FUMARATE 25 MG TABLET PO SCH (08:30)
[2022-09-30] MEDS: UMECLIDINIUM BROMIDE 62.5MCG/BLISTER 7 PUFFS/INHALER INH SCH (08:30)
[2022-09-30] MEDS: OSELTAMIVIR PHOSPHATE 75 MG CAP PO SCH (08:30)
[2022-09-30] MEDS: ENOXAPARIN INJ 40 MG/0.4 ML SYR SQ SCH (08:30)
[2022-09-30] MEDS: ISOSORBIDE MONO EXTENDED REL 60 MG TABCR PO SCH (08:30)
[2022-09-30 08:38] LABS: BUN Creatinine Ratio 32.5 (10-20); Calcium 8.5 mg/dl (8.5-10.1); Creatinine Clr Calc Pharmacy 66.1 ml/min; Est GFR (African American) 95.7 ml/min; Est GFR (Non-African American) 82.6 ml/min; Potassium 3.9 mmol/L (3.5-5.1)
[2022-09-30 08:46] LABS: Immature Granulocytes # (auto) 0.03 K/uL (0.00-0.02); Immature Granulocytes % (auto) 0.6 %; Lymphocytes # (auto) 0.76 K/uL (1.2-3.4); Lymphocytes % (auto) 15.7 %; Monocytes # (auto) 0.38 K/uL (0.24-0.82); Monocytes % (auto) 7.9 %; Neutrophils # (auto) 3.66 K/uL (1.4-6.5); Neutrophils % (auto) 75.8 %; Platelet Estimate Decreased (Normal)
[2022-09-30 08:47] LABS: Hematocrit (blood only) 41.3 % (40.1-51.0); Hemoglobin 13.9 g/dl (14.0-18.0); Mean Corpuscular Hemoglobin 29.6 pg (25.0-34.0); Mean Corpuscular Hgb Conc 33.7 g/dL (32.0-36.0); Mean Corpuscular Volume 87.9 fL (80.0-100.0); Mean Platelet Volume 10.1 fL (9.4-12.4); Platelet Count 99 K/uL (130-400); RDW Coefficient of Variation 13.6 % (11.5-14.5); RDW Standard Deviation 43.9 fL (36.4-46.3); White Blood Count 4.83 K/ul (4.8-10.8)
[2022-09-30] MEDS ORDERED: LANTUS PER UNIT CHARGE SQ SCH ×2 (09:00→16:30)
--- NOTE | 2022-09-30 13:34 | Discharge Summary ---
Date of Service September 30, 2022 Admission HPI Per Admitting Provider Rio is an 82-year-old male with a past medical history of asthma, IPMN, BISI, hypertension, hyperlipidemia, heart failure with preserved ejection fraction, GERD, CAD, advanced COPD, and monoclonal B-cell lymphocytosis who presented to the emergency department with 1 week of cough and congestion gradually worsening over the last week and with the inability to ambulate independently day of admission. On ER review he is hypoxic requiring 3 L of nasal cannula to maintain sats greater than 94%, temperature 37.6, pulse 106, BP 120/81. He has no leukocytosis, hemoglobin 13.2, platelet 96 with a baseline of low 100s, normal sodium/potassium, creatinine with normal baseline and admitting creatinine 0.89, VBG 7.4 /, uninfected appearing UA, and a flu positive viral PCR. Chest x-ray? Left lower lobe patchy opacity, no pulmonary edema. EKG sinus tachycardia with PVCs, no territorial ST segment changes. QTc 446. Patient seen at the bedside with his son present. Patient does have dementia, redirects conversation frequently with humor but does not verbalize month, year, or city but does recognize that he is in the hospital. Per son patient has been weak for couple of days, and seems to be worse with wheezing and nonproductive cough in the last 2 days. Patient has had a couple of falls, he has not hit his head or lost consciousness but has had slid down and had trouble bearing weight on his legs. Patient denies headache, neck pain. Increased wheezing using albuterol at home. Patient denies fever, chills, sweats, sputum production. He and his son know he has a history of asthma, previously was thought to be COPDBut on follow-up test was thought to be more consistent with asthma. Has been taking his inhalers including his daily inhalers as directed. Is continued on budesonide twice daily and Spiriva. Patient is a somewhat inconsistent historian about oxygen. He reports she does not need any home oxygen, but does have a concentrator at home and is not sure why, notes that he has not used this recently. Review of pulmonology notes revealed that patient was recommended to use supplemental oxygen at night as medical necessity as he is noncompliant with BiPAP therapy. CPAP nightly, oxygen as needed ordered for inpatient. Principal Diagnosis hypoxia , asthma, influenza A Discharge Exam at 1300 h , follows commands, was unable to tell me his name, " Brian"." I am joking"--until I was about to leave the room, cannot tell where he is, " somewhere" CLEAN LUNCH TRAY IN FRONT OF HIM ( FINISHED 100% BREAKFAST WELL PER RN) 94% RA Head and neck moist oral mucosa ABD : NON TENDER CHEST : scattered exp wheezing ant and post Left pupil about 3 mm minimally reactive, right pupil about 1.5 mm reactive to light 5 /5 power elbow flexors and knee extensors. Discharge Data Allergies Allergy/AdvReac Type Severity Reaction Status Date / Time ibuprofen Allergy Mild ULCERS IN Verified 09/26/22 00:40 MOUTH Consultations 09/26/22 02:52 ED Decision to Admit Stat 09/27/22 14:50 Consult Gastroenterology Routine Procedures Performed Operation Date: 09/28/22 16:40 <No data on this case meets the specified criteria> Ordered Studies 09/26/22 16:13 CT head/brain wo con Routine 09/28/22 14:56 MR brain wo con Urgent Hospital Course (1) Hypoxia: Secondary acute Asthma Exacerbation, Influenza A. Now resolved. He is on room air solumedrol iv stopped - got for 5 days till this am (2) Influenza A: Tamiflu 75 mg p.o. twice daily for 5 days- completed (3) Asthma exacerbation: Continue solu-medrol 40mg IV BID. Duonebs QID. Much improved since admission (4) Esophageal dysphagia: Chronic. Seen by speech and language and recommended GI consult prior to any video swallow due to known esophageal dysphagia. He is to have an EGD later today, September 28, but he seems to be unaware of this and may refuse the procedure. 2012 barium swallow study found showing history of esophageal ring and dysmotility for at least the last 10 years. here eating doft diet well- daughter Paola says soft diet is what they give at home Here GI consult did not lead anywhere. It is unclear if patient refused but appears likely. I picked up his care on day of discharge (after 4 days)and he is doing well w a soft diet. I have told Paola to be sure her mother knows as he got chicken in ED that led to two episodes of near aspiration 09/26/2022 (5) Unequal pupil diameter: anisocoria dates back to at least 2 months when was noted in ED per daughter post fall. CT head with no pathology. 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 No acute CVA. (6) Moderate persistent asthma: Continue Incruse Ellipta and Singulair. Continue budesonide nebulizer twice daily. ON ra (7) Obstructive sleep apnea: CPAP HS recommended by Pulmonology earlier this year : stable. (8) CAD (coronary artery disease): Stable on current medications including metoprolol, isosorbide, Lasix , atorvastatin. No evidence of acute coronary syndrome. (9) Dementia, vascular: Stable. Continue current medical management. (10) Diabetes mellitus: Hemoglobin A1c 6.6%. Diabetic diet. sugars running high in early 200s- only on half glyburide dose here and not on home metformin- resume home meds (11) Obesity (BMI 30-39.9): Weight loss recommended (12) Hypertension: Stable on metoprolol tartrate , furosemide , isosorbide mononitrate bp 160-190 systolic yesterday ( was agitated after midnight and needed Haldol). 09/30 Bp this am 116/58 w pulse 69 (13) GERD (gastroesophageal reflux disease): Continue pantoprazole 40 mg p.o. twice daily (14) Agitation: Seroquel dosage uptitrated September 29 to 50 mg bid Haldol hs at home is prn hs and will continue for now. Seroquel raised to 50 mg am and 100 mg hs at discharge- needed three haldol im doses after midnight overnight. Plan CODE STATUS: DNR/DNI- confrimed w otis Guevara day of discharge. Disposition: discharge home today Has equipment at home -and no needs. Family leaning towards starting hospice again. I spoke w daughter Paola in detail today. Her 19 year old son at home always- he and Paola live with patient and his . Total Time Total Time Spent Total Time Spent (In Minutes): 45 Discharge Plan Discharge Items Patient Disposition: Home - Home Health Services Reason For Visit: AHRF 2/2 ASTHMA EXACERBATION & FLUA Discharge Diagnosis: resp failure and influenza A - resolved Activity: As commented below Activity Comment: under supervision due to vascular dementia Non-emergency contact: Primary Care Provider Call non-emergency contact if: your symptoms worsen Follow-up/Referrals: Brad Mason III, CRNP [Primary Care Provider] - Diet: Carb Count or DM1 Addtl Attending Provider Instructions: soft diet as before Pending Studies at Discharge: No Medications and DC Order Prescriptions: New famotidine [Pepcid] 20 mg tablet 20 mg PO HS Qty: 20 2RF quetiapine [Seroquel] 50 mg tablet 50 mg PO DAILY Qty: 14 2RF quetiapine [Seroquel] 100 mg tablet 100 mg PO HS Qty: 14 2RF Continued furosemide [Lasix] 40 mg tablet 40 mg PO DAILY Qty: 90 1RF montelukast [Singulair] 10 mg tablet 10 mg PO HS Qty: 90 3RF metformin 500 mg tablet extended release 24 hr 500 mg PO BID Qty: 180 1RF tramadol 50 mg tablet 50 mg PO BID PRN (Reason: pain) Qty: 60 2RF atorvastatin 10 mg tablet 10 mg PO QPM Qty: 90 3RF metoprolol tartrate 50 mg tablet 25 mg PO BID Qty: 90 3RF glyburide 2.5 mg tablet 2.5 mg PO BID Qty: 180 3RF isosorbide mononitrate 60 mg tablet extended release 24 hr 60 mg PO QAM Qty: 90 1RF acetaminophen 500 mg capsule 500 mg PO Q6H PRN (Reason: Pain) cholecalciferol (vitamin D3) [Vitamin D3] 25 mcg (1,000 unit) capsule 25 mcg PO QAM budesonide 0.5 mg/2 mL suspension for nebulization 0.5 mg INH BID Qty: 120 6RF ipratropium-albuterol 0.5 mg-3 mg(2.5 mg base)/3 mL solution for nebulization 3 ml INHALATION Q4H PRN (Reason: sob/wheezing) Qty: 180 3RF Spiriva with HandiHaler 18 mcg capsule, w/inhalation device 1 cap inhalation DAILY Qty: 60 5RF Rx Instructions: puncture 1 cap using device; one dose = 2 inhalations haloperidol 1 mg tablet 1 mg PO HS PRN (Reason: Insomnia) hyoscyamine sulfate 0.125 mg tablet 0.125 mg PO HS PRN (Reason: Gi Upset) lorazepam 0.5 mg tablet 0.5 mg PO HS PRN (Reason: Anxiety) Discontinued (DME) blood sugar diagnostic Strip See Dose Instructions .ROUTE .MEDSUPPLY Qty: 100 5RF Rx Instructions: TEST TWICE DAILY; DX CODE- E11.9 (DME) blood-glucose meter [OneTouch UltraMini] Kit See Rx Instructions .Route Qty: 1 0RF Rx Instructions: As directed quetiapine [Seroquel] 25 mg tablet 25 mg PO BID Qty: 90 3RF clotrimazole 1 % solution See Rx Instructions topical BID Qty: 30 1RF Rx Instructions: 5gtt to ear area BID x 14 days celecoxib 100 mg capsule 100 mg PO DAILY Qty: 90 1RF Discharge Orders: Discharge Order (Routine); Ordered 09/30/22 Ordered By: Jhony Smith/Other Patient Handouts: Managing Type 2 Diabetes Admission Data Admit Date/Time: 09/26/22 03:06 Attending Provider: Jhony Pratt Admit Provider: Christian Modi Primary Care Provider: Brad Mason III Other Providers: Christian Modi ; Nain Stanton ; [facility] ; Cole Lutz Coding Level of Care Code D/C DAY MANAGEMENT >30 MINS Diagnoses Hypoxia R09.02 Influenza A J10.1 Asthma exacerbation J45.901 Esophageal dysphagia R13.19 Unequal pupil diameter H57.02 Moderate persistent asthma J45.40 Asthma complication type: uncomplicated Obstructive sleep apnea G47.33 CAD (coronary artery disease) I25.118 Associated angina: with stable angina Coronary Disease-Associated Artery/Lesion type: [place] artery [place] vs. transplanted heart: [place] heart Dementia, vascular F01.50 Dementia behavioral disturbance: without behavioral disturbance Diabetes mellitus E11.9 Diabetes mellitus complication status: without complication Diabetes mellitus long distance operator insulin use: without usp use Diabetes mellitus type: type 2 Obesity (BMI 30-39.9) E66.9 Hypertension I10 Hypertension type: essential hypertension GERD (gastroesophageal reflux disease) K21.9 Esophagitis presence: without esophagitis Agitation R45.1
--- NOTE | 2022-10-10 13:42 | Coding Query ---
CONGESTIVE HEART FAILURE To Promote full compliance with coding requirements relating to patient care, physician participation is requested in all cases of mental health worker uncertainty. Please assist us with the following questions. A diagnosis of Congestive Heart Failure is documented in the patient's medical record. To accurately code this diagnosis and to compare patient severity, we ask that you specify the type of heart failure by placing an X within the parenthesis (x). The H/P and first progresss note document [facility] Please check below the phrase that applies. Thank you . KRISTOPHER Up [facility] SYSTOLIC HEART FAILURE ( ) Acute ( ) Chronic ( ) Acute on Chronic ( ) Rheumatic ( ) Unknown DIASTOLIC HEART FAILURE ( ) Acute ( ) Chronic ( ) Acute on Chronic ( ) Rheumatic ( ) Unknown COMBINED SYSTOLIC AND DIASTOLIC HEART FAILURE ( ) Acute ( ) Chronic ( ) Acute on Chronic ( ) Rheumatic ( ) Unknown Was the CHF Present On Admission? Please check the appropriate box: ( ) Present on Admission ( ) Not Present On Admission ( ) Clinically undetermined Thank you Kalen QUEZADA
--- NOTE | 2022-10-10 13:45 | Coding Query ---
CODING QUERY To promote full compliance with coding requirements relating to patient care, provider participation is requested in all cases of clothes marker uncertainty. Please assist us with the question(s) below: Coding Question(s): Pt admitted with INFLUENZA and Asthma exacerbation. H/P and first progress note document AHRF. In reference to the Renal Failure, please document below the acuity, ie: Acute, Chronic, and/or Kidney Disease stage if known or suspected. Thanks for your help! Kalen Zamudio [facility] [place] Physician's Response(s): Principal Diagnosis: "that condition established after study, to be chiefly responsible for occasioning the admission of the patient to the hospital for care." Co-Existing Principal Diagnosis: "when two or more diagnoses equally meet the criteria for principal diagnosis as determined by the circumstances of admission, diagnostic work up, and/or therapy provided, and the Alphabetic Index, Tabular List, or another coding guideline does not provide sequencing direction, any one of the diagnoses may be sequenced first." "When the physician has documented what appears to be a current diagnosis in the body of the record, but has not included the diagnosis in the final diagnostic statement, the physician should be asked whether the diagnosis should be added." ([facility] 2 QTR90. p3-4) DAMIEN
--- NOTE | 2022-10-10 14:23 | Coding Query ---
CODING QUERY To promote full compliance with coding requirements relating to patient care, provider participation is requested in all cases of microsoft office instructor uncertainty. Please assist us with the question(s) below: Coding Question(s): Pt admitted with Influenza and asthma exacerbation. The History/Physical and first progress note documented the acronym AHRF ( Acute Hypoxic Respiratory Failure) . Please check below the phrase that applies. Thank you. Kalen Zamudio [facility] Physician's Response(s): xx___ The patient had acute hypoxic respiratory failure,present on admission The patient had acute hypoxic respiratory failure, not present on admission Cannot clinically correlate if the patient had acute hypoxic respiratory failure Other: please document: Principal Diagnosis: "that condition established after study, to be chiefly responsible for occasioning the admission of the patient to the hospital for care." Co-Existing Principal Diagnosis: "when two or more diagnoses equally meet the criteria for principal diagnosis as determined by the circumstances of admission, diagnostic work up, and/or therapy provided, and the Alphabetic Index, Tabular List, or another coding guideline does not provide sequencing direction, any one of the diagnoses may be sequenced first." "When the physician has documented what appears to be a current diagnosis in the body of the record, but has not included the diagnosis in the final diagnostic statement, the physician should be asked whether the diagnosis should be added." (Source [facility] 2 QTR90. p3-4) DAMIEN
== END 2022-09-30 16:04 | disposition home health service (06) | DRG 193 ==
LOC: ED 00:28 → EDINP 03:06 → SUATTDRO 03:06 → 2W 03:33